=== PATIENT | female | born 1985 | race Caucasian/White ===

== ENCOUNTER → 2018-10-26 | Outpatient (CLI) | payer MEDICAID, SELFPAY | END | disposition home or self-care (01) | PROVIDERS: Family Provider Family Medicine; PCP Family Medicine; Referring Provider Otolaryngology Otolaryngology/Facial Plastic Surgery; Visit Provider Otolaryngology Otolaryngology/Facial Plastic Surgery | DX: J02.9 Acute pharyngitis, unspecified (principal) | CPT/HCPCS: 87070 ==

== ENCOUNTER → 2018-11-26 | Outpatient (CLI) | payer MEDICAID, SELFPAY ==
--- NOTE | 2018-11-26 07:51 | CT_ITS ---
STUDY: CT MAXILLOFACIAL SINUSES REASON FOR EXAM: Female, 33 years old. Sinusitis RADIATION DOSAGE (If Supplied By Facility): CTDIvol = ( 33.45 ) mGy, DLP = ( 839.09 ) mGycm TECHNIQUE: The patient was scanned in a multi detector CT scanner. High resolution axial imaging was performed without the administration of intravenous contrast material. Sagittal and coronal images were reconstructed. Individualized dose optimization techniques were used for this CT. COMPARISON: None. FINDINGS: FRONTAL SINUSES: Normal aeration, without mucosal inflammatory disease. ETHMOIDAL SINUSES: Normal aeration, without mucosal inflammatory disease. MAXILLARY SINUSES: Normal aeration, without mucosal inflammatory disease. SPHENOIDAL SINUSES: Normal aeration, without mucosal inflammatory disease. There is patency of the bilateral maxillary infundibuli with normal uncinate processes, ethmoid bullae, and hiatus semilunaris. Normal bilateral middle turbinates. Normal bilateral inferior turbinates. There is mild right sided nasal septal deviation, but without a nasal septal spur. There is patency of the bilateral nasal airways. The visualized osseous structures are normal. The visualized bilateral orbital contents are normal. CT/Sinus/Facial Bone IMPRESSION: Bilateral nasal septal deviation to the right. There are sinuses. Electronically Signed: Raphael Garcia, at 17:10 EDT Tel , Service support ,
== END | disposition home or self-care (01) ==
LOC: CT 07:49
PROVIDERS: Family Provider Family Medicine; PCP Family Medicine; Referring Provider Otolaryngology Otolaryngology/Facial Plastic Surgery; Visit Provider Otolaryngology Otolaryngology/Facial Plastic Surgery
DX: J32.9 Chronic sinusitis, unspecified (principal)
CPT/HCPCS: 70486

== ENCOUNTER 2020-05-16 12:51 | Emergency (ER) | payer MEDICAID, SELFPAY ==
[2020-05-16 12:52] VITALS: BP 128/79; PULSE 100; RESP 17; TEMP 36.4; O2SAT 99; BMI 25.7
--- NOTE | 2020-05-16 13:42 | ED.DCSUM_ITS ---
- ER Visit Summary Date of Service: 05/16/20 Chief Complaint: General weakness, fatigue, and lightheadedness History of Present Illness: The patient is a 34 F who presents with fatigue, lightheadedness, and fatigue for the past couple months. Patient states she has been having some swelling in her lower legs behind her ankles. Patient states she is being evaluated by her petroleum refining firer for possible congestive heart failure because of that. Patient states she just feels weak and fatigued all over. Patient denies any fevers or chills. Patient admits to a cough with some sputum. Patient admits to nausea but denies any vomiting. Patient is a smoker. Physical Examination: Vital signs are stable. Patient is afebrile. Patient is in no acute distress. Oral mucosa is pink and moist. Neck is supple. Trachea is midline. There is no JVD noted. Heart was regular rate and rhythm. Lungs are clear and equal bilaterally. Abdomen is soft. Bowel sounds are normal. There is no tenderness. There is no rebound or guarding noted. Skin is warm dry. Cranial nerves II through XII are intact. There are no focal motor or sensory deficits noted. Extremities are intact. There is no calf tenderness or edema. Test Results: EKG showed normal sinus rhythm with a rate of 76. There are no acute ST or T wave changes. This was interpreted by the emergency physician. CBC and comprehensive metabolic profile was within normal limits. Urinalysis was normal. Troponin was normal. Portable 1 view chest x-ray was obtained. On my interpretation, lung rose are clear. There is normal cardiac silhouette. Bony thorax is normal. There is no acute process noted. Radiologist also interpreted the x-ray and agrees. Emergency Department Course and Treatment: Patient was given IV fluids here. Patient is feeling better on reevaluation. Patient was instructed to follow-up with her primary care physician in 5 to 7 days. Patient understood and was agreeable with the plan. All questions were answered. Disposition: Discharge home Impression: 1. Viral illness This note was generated with SecureAuth dictation software. It may contain incorrect words, spelling, and punctuation that were not noted in review of the chart prior to signing ED Disposition - Plan for ED Patient: Disposition: Home or Assisted Living Diagnosis: Viral illness Instructions: ED Viral Syndrome Referrals: Jasbir Wilson MD [Primary Care Provider] - 5-7 Days
--- NOTE | 2020-05-16 13:58 | EKG12_ITS ---
Test Reason : WEAKNESS Blood Pressure : / mmHG Vent. Rate : 076 BPM Atrial Rate : 076 BPM P-R Int : 168 ms QRS Dur : 072 ms QT Int : 370 ms P-R-T Axes : 049 054 045 degrees QTc Int : 416 ms Normal sinus rhythm Normal ECG Confirmed by SADAF HERNANDEZ, NINO ([id number]), legal editor JUSTINE PANIAGUA ([id number]) on 05/18/2020 9:42:01 AM Referred By: ENA Confirmed By:NINO TALAVERA MD
--- NOTE | 2020-05-16 14:05 | RAD_ITS ---
STUDY: X-RAY CHEST REASON FOR EXAM: Female, 34 years old. Weakness and swelling of lower extremities. TECHNIQUE: Single frontal view of the chest. COMPARISON: 05/08/2011 FINDINGS: Stable mild hyperexpansion. There is no demonstrated pleural abnormality. Normal size heart. Normal mediastinum and javan. Normal visualized pulmonary arteries. Normal visualized aortic arch and descending thoracic aorta. Normal visualized thoracic spine. Normal visualized ribs, clavicles, and shoulders. There is no demonstrated abnormality of the visualized soft tissue structures of the upper abdomen. RAD/Chest 1 View (Portable) IMPRESSION: Stable hyperexpansion with no acute finding. Electronically Signed: Esvin Anderson MD at 14:36 EST , Service support ,
[2020-05-16 14:09] LABS: Absolute Lymphocyte Count 2.04 X10^3/uL (0.83-4.51); Absolute Neutrophil Count 4.9 X10^3/uL (2.0-7.7); Basophil# 0.05 X10^3/uL; Basophil% 0.6 % (0-1); Eosinophil# 0.24 X10^3/uL; Eosinophils% 3.1 % (0-5); Hematocrit 44.6 % (37-47); Hemoglobin 14.6 g/dL (12.0-15.0); Lymphocyte # 2.04 X10^3/ul (4.0); Lymphocyte % 26.3 % (19-41); Mean Corp Hgb Conc 32.7 g/dL (32-36); Mean Corpuscular Hgb 30.9 pg (27.0-32.0); Mean Corpuscular Volume 94.3 fL (81-99); Mean Platelet Vol. 12.1 fl (6.2-12.0); Monocyte# 0.49 X10^3/uL; Monocyte% 6.3 % (0-10); NRBC Flagged by Analyzer 0 % (0-5); Neutrophil # 4.91 X10^3/uL (2.7-7.7); Neutrophil % 63.4 % (47-70); Platelet Count 193 K/mm3 (150-450); RBC Distribution Width SD 42.4 fl (35.1-43.9); Red Blood Count 4.73 M/mm3 (4.2-5.4); White Blood Count 7.8 K/mm3 (4.4-11.0)
[2020-05-16 14:22] LABS: ALB/GLOB Ratio 1.1 RATIO (0.9-2.4); AST(SGOT) 18 U/L (15-37); Alanine Aminotransfer ALT/SGPT 40 U/L (13-56); Albumin, Serum 3.8 g/dL (3.2-5.0); Alkaline Phosphatase 66 U/L (45-117); Anion Gap 2 (5-15); BUN 11 mg/dL (7-18); BUN/Creat Ratio 14.1 RATIO (10-20); Calcium,Total 8.7 mg/dL (8.5-10.1); Chloride 111 mmol/L (98-107); Creatinine, Serum 0.78 mg/dL (0.55-1.02); EST Glomerular Filtration Rate 89 mL/min (>60); Est Glom Filt Rate - Afr Amer 107 mL/min (>60); Globulin 3.4 g/dL (2.2-4.2); Glucose 100 mg/dL (74-106); Potassium 3.7 mmol/L (3.5-5.1); Protein, Total 7.2 g/dL (6.4-8.2); Sodium Level 140 mmol/L (136-145)
[2020-05-16] MEDS: 0.9% Normal Saline 1,000 ML 1000 ML IV (14:38)
[2020-05-16 15:11] VITALS: PULSE 79; RESP 22; O2SAT 98
[2020-05-16 15:16] LABS: Bacteria 0 SEEN /hpf (None Seen); Mucous, Urine 0 SEEN /hpf (<or=2+); Red Blood Cells-Urine 0 SEEN /hpf (0-5)
[2020-05-16 15:25] LABS: Color, Urine Yellow (Yellow); Glucose, Dipstick Normal (Normal); Ketone-Dipstick Negative (Negative); Leukocyte Esterase-Dipstick Negative /ul (Negative); Nitrite-Dipstick Negative (Negative); Occult Blood-Urine Negative /ul (Negative); Protein-Dipstick Negative (Negative); Specific Gravity, Urine 1.015 (1.002-1.030); Urine Bilirubin Dipstick Negative (Negative); Urine Clarity Sl. Cloudy (Clear); Urine Urobilinogen Normal (Normal); Urine pH 6.5 (5.0 - 8.0)
[2020-05-16 15:32] LABS: Squamous Epithelial Cells - UA 0-5 SEEN /hpf (5-10); White Blood Cells 0-5 SEEN /hpf (0-5)
== END 2020-05-16 16:44 | disposition home or self-care (01) ==
PROVIDERS: Emergency Provider Emergency Medicine; PCP Family Medicine
DX: B34.9 Viral infection, unspecified (principal); F17.200 Nicotine dependence, unspecified, uncomplicated
CPT/HCPCS: 71045; 80053; 81001; 84484; 85025; 93005; 99284; J7030; A4216

== ENCOUNTER 2022-08-17 03:18 | Emergency (ER) | payer MEDICAID, SELFPAY ==
[2022-08-17 03:19] VITALS: BP 113/65; PULSE 89; RESP 16; TEMP 36.8; O2SAT 97; BMI 27.2
--- NOTE | 2022-08-17 03:54 | EKG12_ITS ---
Test Reason : CP Blood Pressure : / mmHG Vent. Rate : 093 BPM Atrial Rate : 093 BPM P-R Int : 178 ms QRS Dur : 074 ms QT Int : 360 ms P-R-T Axes : 069 021 048 degrees QTc Int : 447 ms Normal sinus rhythm Nonspecific ST abnormality Abnormal ECG Confirmed by SADAF HERNANDEZ, NINO ([id number]), editor news JUSTINE PANIAGUA ([id number]) on 08/17/2022 9:07:46 AM Referred By: BB Confirmed By:NINO TALAVERA MD
--- NOTE | 2022-08-17 03:54 | EDS_ITS ---
HPI History of Present Illness Chief Complaint: Chest Pain Informant: patient Narrative Narrative: Patient presents for combination of intermittent chest pains and separately, intermittent palpitations. Patient states the palpitations feel like a fluttering in her left lower chest/ribs, below her breast, that lasts for 3 to 4 seconds at a time and has been going on for a couple of months. She was seen at an outside hospital for it at 1 point but they did not find anything. She states sometimes she will trigger it with a sneeze. They do not occur along with the chest pains. When the palpitations do occur, she has had no lightheadedness, near-syncope or syncope, shortness of breath, nausea, sweating, or any other associated symptoms, but she does physically see things moving in the left lower chest wall where the discomfort is located. The chest discomfort is separate. It is a sharp pain, left chest and sometimes shoots into her left axilla, and also last for seconds or minutes. No specific triggers such as deep inspiration, movement, exertion. Seems random. Having going on for 2 years intermittently, since I had COVID. She has been seen for this several times at outside hospital, she states she had CT angiography to rule out pulmonary embolus and was told everything was normal several times. [facility] Medical History Carcinoma in situ of cervix uteri Depression Endometriosis GERD (gastroesophageal reflux disease) Herpes History of TIA (transient ischemic attack) History of tobacco use HPV (human papilloma virus) infection IBS (irritable bowel syndrome) Migraines Nicotine dependence Patent foramen ovale Home Medications naproxen 500 mg tablet 500 mg PO PRN PRN Pain 08/17/22 [History Last Taken Unknown] pantoprazole 40 mg tablet,delayed release 40 mg PO DAILY #30 tabs 08/17/22 [Rx Last Taken Unknown] Allergy/AdvReac Type Severity Reaction Status Date / Time Bleach (Sodium Hypochlorite) Allergy unknown Verified 08/17/22 03:25 codeine Allergy unknown Verified 08/17/22 03:25 hydrocodone Allergy unknown Verified 08/17/22 03:25 paroxetine [From Paxil] Allergy unknown Verified 08/17/22 03:25 Family History Grandfather Heart disease Diabetes CVA (cerebral vascular accident) Grandmother Heart disease Diabetes Mother SLE (systemic lupus erythematosus) Surgical History History of History of colonoscopy History of tubal ligation Social History Smoking Status: Current every day smoker tobacco type: cigarettes ROS ROS ED Constitutional Constitutional ED: Denies chills or fever(s) Eyes Eyes: Denies change in vision or diplopia ENT ENT ED: Denies rhinorrhea or sore throat Cardiovascular Cardiovascular: Reports as per HPI, chest pain and palpitations Respiratory/Chest Respiratory/Chest: Denies cough or dyspnea Gastrointestinal Gastrointestinal: Denies abdominal pain, diarrhea, nausea or vomiting Genitourinary Genitourinary ED: Denies dysuria or hematuria Musculoskeletal Musculoskeletal: Reports other Details: R great toe pain after injury ; Denies back pain or neck pain Integumentary Denies abscess or rash Neurologic Neurologic: Denies headache(s), paresthesias or weakness Psychiatric Psychiatric: Denies anxiety or suicidal thoughts EXAM Physical Exam Const Vital Signs: 08/17/22 03:19 08/17/22 03:19 08/17/22 04:52 Temperature 98.2 F Temperature Source Temporal Pulse Rate 89 67 Respiratory Rate 16 18 Respiratory Effort Normal Blood Pressure 113/65 101/65 Blood Pressure Mean 81 77 Pulse Ox 97 98 Oxygen Delivery Method Room Air Room Air Positive well nourished and well developed General Appearance ED: well developed and NAD HEENT Reports moist mucous membranes normocephalic and atraumatic Eyes PERRL and EOMs intact bilaterally Neck full ROM and supple Chest Wall inspection of chest normal and palpation of chest normal Resp normal respiratory effort and clear to auscultation bilaterally Cardio regular rate, regular rhythm and no murmurs GI non-tender and non-distended Auscultation: normoactive bowel sounds Palpation: soft Back/Spine no CVA tenderness General Back: other FROM Extremity normal to inspection Extremity Narrative: Tender at subungual hematoma right great toe General Extremety ED: Yes tenderness; Negative for edema or pulses abnormal General Extremity: Negative for edema or pulses abnormal Neuro oriented x3, CN's II-XII intact bilaterally and no sensory deficits noted Sensorium / Orientation: awake and alert Motor Exam: strength 5/5 throughout Skin no rashes or lesions noted and no wounds Heart Score History: Slightly/Non-Suspicious ECG: Normal Age: </= 45 years Risk Factors: 1 or 2 Risk Factors Troponin: </= Normal Limit Score: 1 MDM MDM MDM Narrative Medical decision making narrative: Out side rec reviewed: CT angiography of the chest on 11/27/2020 negative for PE or any other acute abnormality. EKG here normal. She did have some of the fluttering, we did not see any dysrhythmias or ectopy on the monitor, I suspect these are muscle fasciculations especially with the history and the location she is describing. Her PERC score is 0, and in addition to that she had a CTA for the same symptoms that was -1 or 2 years ago, so I do not think she needs any further work-up for PE today. The rest of her blood work is unremarkable there are no electrolyte disturbances to suggest an obvious etiology for muscle fasciculations, and her high-sensitivity troponin is normal at 3. Stable for discharge, will prescribe her PPI to try for the sharp chest pains which may be esophageal in etiology. Lab Data Attestation: I reviewed the patient's lab results. Labs: Laboratory Results - last 24 hr 08/17/22 08/17/22 03:58 03:58 WBC 7.5 RBC 4.48 Hgb 13.6 Hct 41.5 MCV 92.6 MCH 30.4 MCHC 32.8 RDW Std Deviation 41.6 RDW Coeff of Nikko 12.1 Plt Count 180 MPV 11.0 Immature Gran % (Auto) 0.400 Neut % (Auto) 59.7 Lymph % (Auto) 29.9 Nuckolls % (Auto) 7.6 Eos % (Auto) 1.9 Baso % (Auto) 0.5 Absolute Neuts (auto) 4.5 Absolute Lymphs (auto) 2.25 Nucleated RBC % 0 Sodium 140 Potassium 3.6 Chloride 110 H Carbon Dioxide 26.0 Anion Gap 4 L BUN 15 Creatinine 0.72 Estim Creat Clear Calc 90.59 Est GFR (MDRD) Af Amer 116 Est GFR (MDRD) Non-Af 96 BUN/Creatinine Ratio 20.9 H Glucose 98 Calcium 8.5 Troponin I High Sens 3 Rhythm Strip Rhythm Strip: Sinus Rhythm Rate: 85 Ectopy: None EKG Initial EKG: Attestation: I personally reviewed and interpreted this EKG as follows: Interpretation: Sinus Rhythm and No Acute Injury Pattern Comments: nml EKG Prior EKG tracings: available for review Prior: Unchanged Discharge Plan Triage Chief Complaint: Chest Pain ED Provider: Moiz Perez Dx/Rx/DC Orders Clinical Impression: Atypical chest pain, Spasm of skeletal muscle of thorax Instructions: ED Chest Pain, Noncardiac Prescriptions: New pantoprazole 40 mg tablet,delayed release (DR/EC) 40 mg PO DAILY Qty: 30 0RF No Action naproxen 500 mg Tablet 500 mg PO PRN PRN (Reason: Pain) Primary Care Provider: Jasbir Wilson Referrals: Jasbir Wilson MD [Primary Care Provider] - 1-2 Weeks Disposition Disposition: Home, Self Care
[2022-08-17 04:08] LABS: Absolute Lymphocyte Count 2.25 X10^3/uL (0.83-4.51); Absolute Neutrophil Count 4.5 X10^3/uL (2.0-7.7); Basophil# 0.04 X10^3/uL; Basophil% 0.5 % (0-1); Eosinophil# 0.14 X10^3/uL; Eosinophils% 1.9 % (0-5); Hematocrit 41.5 % (37-47); Hemoglobin 13.6 g/dL (12.0-15.0); Lymphocyte # 2.25 X10^3/ul (0.83-4.51); Lymphocyte % 29.9 % (19-41); Mean Corp Hgb Conc 32.8 g/dL (32-36); Mean Corpuscular Hgb 30.4 pg (27.0-32.0); Mean Corpuscular Volume 92.6 fL (81-99); Monocyte# 0.57 X10^3/uL; Monocyte% 7.6 % (0-10); NRBC Flagged by Analyzer 0 % (0-5); Neutrophil # 4.49 X10^3/uL (2.7-7.7); Neutrophil % 59.7 % (47-70); Platelet Count 180 K/mm3 (150-450); RBC Distribution Width CV 12.1 % (11.6-14.6); RBC Distribution Width SD 41.6 fl (35.1-43.9); Red Blood Count 4.48 M/mm3 (4.2-5.4); White Blood Count 7.5 K/mm3 (4.4-11.0)
[2022-08-17 04:29] LABS: Anion Gap 4 (5-15); BUN 15 mg/dL (7-18); BUN/Creat Ratio 20.9 RATIO (10-20); Calcium,Total 8.5 mg/dL (8.5-10.1); Chloride 110 mmol/L (98-107); Creatinine, Serum 0.72 mg/dL (0.55-1.02); EST Glomerular Filtration Rate 96 mL/min (>60); Est Glom Filt Rate - Afr Amer 116 mL/min (>60); Estimated Creatinine Clearance 90.59 ml/min; Glucose 98 mg/dL (74-106); Potassium 3.6 mmol/L (3.5-5.1); Sodium Level 140 mmol/L (136-145); Troponin-I HS 3 pg/mL (3.0-54.0)
[2022-08-17 04:52] VITALS: BP 101/65; PULSE 67; RESP 18; O2SAT 98
[2022-08-17 05:20] VITALS: BP 91/64; PULSE 68; RESP 26; O2SAT 98
== END 2022-08-17 05:25 | disposition home or self-care (01) ==
PROVIDERS: Emergency Provider Emergency Medicine; PCP Family Medicine; Visit Provider Emergency Medicine
DX: R07.89 Other chest pain (principal); R07.81 Pleurodynia; R00.2 Palpitations; M62.838 Other muscle spasm; K21.9 Gastro-esophageal reflux disease without esophagitis; K58.9 Irritable bowel syndrome, unspecified; Q21.12 Patent foramen ovale; F17.210 Nicotine dependence, cigarettes, uncomplicated; Z79.899 Other long term (current) drug therapy; Z86.73 Personal history of transient ischemic attack (TIA), and cerebral infarction without residual deficits; Z86.16 Personal history of COVID-19
CPT/HCPCS: 80048; 84484; 85025; 93005; 99284; A4216

== ENCOUNTER 2023-04-11 18:27 | Emergency (ER) | payer MEDICAID, SELFPAY ==
[2023-04-11 18:27] VITALS: BP 124/87; PULSE 102; RESP 18; TEMP 36.6; O2SAT 99; BMI 24.7
--- NOTE | 2023-04-11 18:46 | CT_ITS ---
INDICATION: right flank pain EXAMINATION: CT ABDOMEN AND PELVIS WITHOUT CONTRAST - CT Abdomen And Pelvis W/O Contrast Injection TECHNIQUE: Helically acquired images were obtained of the abdomen and pelvis without oral or IV contrast. A radiation dose optimization technique was used for this scan. IV Contrast dosage and agent: None. Oral contrast: None. COMPARISON: None. FINDINGS: LOWER CHEST: Lung bases are clear. No cardiomegaly or pericardial effusion. LIVER: Homogeneous. No focal mass. GALLBLADDER AND BILIARY TREE: No calcified gallstones. No gallbladder distension or wall edema. No intra- or extrahepatic biliary ductal dilation. PANCREAS: No focal cystic or solid mass. SPLEEN: Normal size without focal cystic or solid mass. ADRENAL GLANDS: No nodules. KIDNEYS AND URETERS: No nephrolithiasis or hydronephrosis. PERITONEUM: No ascites or free air. BOWEL: No evidence of acute appendicitis. No stomach or bowel distension. No focal inflammatory change. LYMPH NODES: No enlarged mesenteric or retroperitoneal lymph nodes. VESSELS: Aorta is non-dilated. URINARY BLADDER: Nondistended. REPRODUCTIVE ORGANS: No pelvic masses. BTL clips. ABDOMINAL WALL: No discrete abdominal or pelvic wall hernia. BONES: No acute or aggressive abnormality. CT/Abdomen/Pelvis without Cont IMPRESSION: No acute findings in the abdomen or pelvis. Electronically Signed: James Srivastava MD at 19:59 EDT ,
--- NOTE | 2023-04-11 18:47 | EDS_ITS ---
HPI History of Present Illness Chief Complaint: General Illness Informant: patient Onset/Context/Timing Onset: Weeks Narrative Narrative: Patient presents secondary to lower abdominal pain. She been having lower ab dominal pain for the last month and a half or so. She had an MRI on March 27 that revealed a 5.7 cm right-sided ovarian cyst. She states she began having abdominal pain, nausea, headache, body aches. She followed up with Dr. 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 An ultrasound in the office revealed no evidence of a right- sided cyst but a small cyst was noted on the left. Patient is concerned about possible infection or bleeding internally. Her late passed from sepsis so this is a particular concern to her. [facility] Medical History Carcinoma in situ of cervix uteri Depression Endometriosis GERD (gastroesophageal reflux disease) Herpes History of TIA (transient ischemic attack) History of tobacco use HPV (human papilloma virus) infection IBS (irritable bowel syndrome) Migraines Nicotine dependence Patent foramen ovale Home Medications naproxen 500 mg tablet 500 mg PO PRN PRN Pain 08/17/22 [History Last Taken Unknown] pantoprazole 40 mg tablet,delayed release 40 mg PO DAILY #30 tabs 08/17/22 [Rx Last Taken Unknown] Allergy/AdvReac Type Severity Reaction Status Date / Time Bleach (Sodium Hypochlorite) Allergy unknown Verified 04/11/23 18:30 codeine Allergy unknown Verified 04/11/23 18:30 hydrocodone Allergy unknown Verified 04/11/23 18:30 paroxetine [From Paxil] Allergy unknown Verified 04/11/23 18:30 Family History Grandfather Heart disease Diabetes CVA (cerebral vascular accident) Grandmother Heart disease Diabetes Mother SLE (systemic lupus erythematosus) Surgical History History of History of colonoscopy History of tubal ligation Social History Smoking Status: Current every day smoker tobacco type: cigarettes ROS ROS ED Constitutional Constitutional ED: Denies chills or fever(s) ENT ENT ED: Denies rhinorrhea or sore throat Cardiovascular Cardiovascular: Denies chest pain or palpitations Respiratory/Chest Respiratory/Chest: Reports cough; Denies dyspnea Gastrointestinal Gastrointestinal: Reports abdominal pain, nausea and other Details: Decreased p.o. intake ; Denies diarrhea Genitourinary Genitourinary ED: Reports difficulty urinating; Denies dysuria Musculoskeletal Musculoskeletal: Reports back pain and myalgias; Denies extremity pain Integumentary Denies Abrasions or rash Neurologic Neurologic: Reports headache(s); Denies weakness Allergic/Immunologic Allergic/Immunologic ED: Denies lip swelling or urticaria EXAM Physical Exam Const Vital Signs: 04/11/23 18:27 04/11/23 19:09 04/11/23 20:27 Temperature 97.8 F Temperature Source Temporal Pulse Rate 102 H 64 Respiratory Rate 18 12 Respiratory Effort Normal Respiratory Pattern Normal Blood Pressure 124/87 H 120/88 H Blood Pressure Mean 99 98 Pulse Ox 99 99 Oxygen Delivery Method Room Air Room Air Positive well nourished and well developed General Appearance ED: well developed HEENT Reports normocephalic and head/scalp atraumatic Eyes PERRL and EOMs intact bilaterally Neck supple Chest Wall inspection of chest normal and palpation of chest normal Resp normal respiratory effort and clear to auscultation bilaterally Cardio regular rate and regular rhythm GI GI Narrative: Abdomen soft with mild lower abdominal tenderness. No guarding or rebound. Palpation: soft Back/Spine no CVA tenderness Extremity normal to inspection Neuro oriented x3 and no sensory deficits noted Sensorium / Orientation: alert Motor Exam: strength 5/5 throughout Psych Mood & Affect: anxious Skin no rashes or lesions noted MDM MDM MDM Narrative Medical decision making narrative: IV line established. Urinalysis obtained to evaluate for infection/hematuria. Bladder scan performed following urination to ensure she is emptying her bladder. Labwork obtained to evaluate for leukocytosis, anemia, and electrolyte derangement. CT flank obtained to evaluate for ovarian cyst, kidney stone, appendicitis, hematoma. Lab Data Attestation: I reviewed the patient's lab results. Labs: Laboratory Results - last 24 hr 04/11/23 04/11/23 18:54 18:55 WBC 7.9 RBC 4.64 Hgb 13.9 Hct 43.6 MCV 94.0 MCH 30.0 MCHC 31.9 L RDW Std Deviation 42.1 RDW Coeff of Nikko 12.1 Plt Count 228 MPV 11.6 Immature Gran % (Auto) 0.400 Neut % (Auto) 43.9 L Lymph % (Auto) 42.9 H Breathitt % (Auto) 6.8 Eos % (Auto) 5.2 H Baso % (Auto) 0.8 Absolute Neuts (auto) 3.5 Absolute Lymphs (auto) 3.39 Nucleated RBC % 0 Sodium 142 Potassium 3.3 L Chloride 115 H Carbon Dioxide 23.0 Anion Gap 4 L BUN 14 Creatinine 0.82 Estim Creat Clear Calc 79.54 Est GFR (MDRD) Af Amer 99 Est GFR (MDRD) Non-Af 82 BUN/Creatinine Ratio 17.0 Glucose 103 Calcium 8.7 Urine Color Yellow Urine Clarity Clear Urine pH 6.5 Ur Specific Linch 1.015 Urine Protein 15 H Urine Glucose (UA) Normal Urine Ketones Negative Urine Occult Blood Negative Urine Nitrite Negative Urine Bilirubin Negative Urine Urobilinogen 1 H Ur Leukocyte Esterase 25 H Urine RBC 0-5 SEEN Urine WBC 0-5 SEEN Ur Squamous Epith Cells 0 SEEN Calcium Oxalate Crystal 1+ Urine Bacteria RARE Urine Mucus 0 SEEN Radiography Diagnostic Testing: Clinical Impression(s) from Imaging Studies Abdomen/Pelvis CT 04/11/23 18:46 IMPRESSION: No acute findings in the abdomen or pelvis. Electronically Signed: James Srivastava MD at 19:59 EDT , Chest X-Ray 04/11/23 19:15 IMPRESSION: No radiographic evidence of acute cardiopulmonary disease. Electronically Signed: James Srivastava MD at 19:49 EDT , Treatment and Re-Evaluation :: BC was normal white count 7.9 with a hemoglobin of 13.9. Differential is unremarkable. Chemistry studies are normal other than slightly low potassium at 3.3. Urinalysis reveals 1+ calcium oxalate crystals with 0-5 white cells. Rare bacteria noted. No nitrites. Portable chest x-ray per my interpretation reveals no acute findings. Radiology interpretation is reviewed and agrees. CT scan of the abdomen and pelvis reveals no acute findings. Swab for COVID and influenza is negative. On repeat evaluation patient resting somewhat more comfortably. Test results are discussed with her. She is reassured with these findings. She is to continue Tylenol and ibuprofen. I also encouraged her to increase fluids. Return instructions given. Discharge Plan Triage Chief Complaint: General Illness ED Provider: Destini Vega Dx/Rx/DC Orders Clinical Impression: Viral syndrome Instructions: ED Viral Syndrome (Adult) Prescriptions: No Action naproxen 500 mg Tablet 500 mg PO PRN PRN (Reason: Pain) pantoprazole 40 mg tablet,delayed release (DR/EC) 40 mg PO DAILY Qty: 30 0RF Primary Care Provider: Jasbir Wilson Referrals: Jasbir Wilson MD [Primary Care Provider] - 1 Week if not improving Disposition Disposition: Home, Self Care
[2023-04-11 19:03] LABS: Mucous, Urine 0 SEEN /hpf (<or=2+); Squamous Epithelial Cells - UA 0 SEEN /hpf (5-10)
[2023-04-11 19:04] LABS: Absolute Lymphocyte Count 3.39 X10^3/uL (0.83-4.51); Absolute Neutrophil Count 3.5 X10^3/uL (2.0-7.7); Basophil# 0.06 X10^3/uL; Basophil% 0.8 % (0-1); Eosinophil# 0.41 X10^3/uL; Eosinophils% 5.2 % (0-5); Hematocrit 43.6 % (37-47); Hemoglobin 13.9 g/dL (12.0-15.0); Lymphocyte # 3.39 X10^3/ul (0.83-4.51); Lymphocyte % 42.9 % (19-41); Mean Corp Hgb Conc 31.9 g/dL (32-36); Mean Platelet Vol. 11.6 fl (6.2-12.0); Monocyte# 0.54 X10^3/uL; Monocyte% 6.8 % (0-10); NRBC Flagged by Analyzer 0 % (0-5); Neutrophil # 3.47 X10^3/uL (2.7-7.7); Neutrophil % 43.9 % (47-70); Platelet Count 228 K/mm3 (150-450); RBC Distribution Width CV 12.1 % (11.6-14.6); RBC Distribution Width SD 42.1 fl (35.1-43.9); Red Blood Count 4.64 M/mm3 (4.2-5.4); White Blood Count 7.9 K/mm3 (4.4-11.0)
[2023-04-11 19:07] LABS: Color, Urine Yellow (Yellow); Glucose, Dipstick Normal (Normal); Ketone-Dipstick Negative (Negative); Leukocyte Esterase-Dipstick 25 /ul (Negative); Nitrite-Dipstick Negative (Negative); Occult Blood-Urine Negative /ul (Negative); Protein-Dipstick 15 mg/dl (Negative); Specific Gravity, Urine 1.015 (1.002-1.030); Urine Bilirubin Dipstick Negative (Negative); Urine Clarity Clear (Clear); Urine Urobilinogen 1 mg/dl (Normal); Urine pH 6.5 (5.0 - 8.0)
[2023-04-11] MEDS: 0.9% Normal Saline (1000mL) 1,000 ML 1000 ML IV (19:08)
[2023-04-11] MEDS: Ondansetron 4 MG/2 ML Vial IV (19:08)
[2023-04-11] MEDS: Ketorolac 30 MG/ML Syringe IV (19:08)
--- NOTE | 2023-04-11 19:15 | RAD_ITS ---
INDICATION: cough, sob EXAMINATION/TECHNIQUE: X-RAY - portable upright AP chest x-ray COMPARISON: 05/16/2020 FINDINGS: LINES/DEVICES: None. LUNGS: No consolidation, edema or effusion. No pneumothorax. MEDIASTINUM AND CARDIOVASCULAR STRUCTURES: Cardiac silhouette not enlarged. Central airways and mediastinal contour are unremarkable. BONES AND SOFT TISSUES: No acute changes. RAD/Chest 1 View (Portable) IMPRESSION: No radiographic evidence of acute cardiopulmonary disease. Electronically Signed: James Srivastava MD at 19:49 EDT ,
[2023-04-11 19:21] LABS: Anion Gap 4 (5-15); BUN 14 mg/dL (7-18); Calcium,Total 8.7 mg/dL (8.5-10.1); Chloride 115 mmol/L (98-107); Creatinine, Serum 0.82 mg/dL (0.55-1.02); EST Glomerular Filtration Rate 82 mL/min (>60); Est Glom Filt Rate - Afr Amer 99 mL/min (>60); Estimated Creatinine Clearance 79.54 ml/min; Glucose 103 mg/dL (74-106); Potassium 3.3 mmol/L (3.5-5.1); Sodium Level 142 mmol/L (136-145)
[2023-04-11 19:26] LABS: Bacteria RARE /hpf (None Seen); Calcium Oxalate Crystals Ur 1+ /hpf (<or=2+); Red Blood Cells-Urine 0-5 SEEN /hpf (0-5); White Blood Cells 0-5 SEEN /hpf (0-5)
[2023-04-11] MEDS: 0.9% Normal Saline (1000mL) 1,000 ML 150 ML IV (20:20)
[2023-04-11 20:27] VITALS: BP 120/88; PULSE 64; RESP 12; O2SAT 99
[2023-04-11 20:52] VITALS: BP 123/46; PULSE 65; RESP 14; O2SAT 99
== END 2023-04-11 20:54 | disposition home or self-care (01) ==
PROVIDERS: Emergency Provider Emergency Medicine; PCP Family Medicine; Visit Provider Emergency Medicine
DX: B34.9 Viral infection, unspecified (principal); F17.210 Nicotine dependence, cigarettes, uncomplicated; Z86.73 Personal history of transient ischemic attack (TIA), and cerebral infarction without residual deficits
CPT/HCPCS: 71045; 74176; 80048; 81001; 85025; 87428; 96361; 96374; 96375; 99284; J7030; A4216; J2405

== ENCOUNTER → 2024-06-11 | Outpatient (CLI) | payer MEDICAID, SELFPAY ==
--- NOTE | 2024-06-11 18:07 | PCM.TILTTABL ---
Staff Staff: Cate Roberto and Lashanda Garcia Summary Pre Test Resting HR: 92 Pre Test Resting BP: 107/69 Minimum Test HR: 80 Maximum Test HR: 93 Minimum Test BP: 99/69 Maximum Test BP: 110/60 Reason for Test Termination: Reached Maximum Test Time Physician Tilt Table Report Patient's Physicians Primary Care Physician: Jasbir Wilson Indications/Diagnosis: Dizziness. Procedure Comments: Patient was brought to the noninvasive lab in the postabsorptive nonsedated state. Informed consent was obtained. Initial heart rate and blood pressure was noted to be 68 bpm and a blood pressure of 100/56 mmHg. The patient was then placed in the 70 degree head upright tilt position after EKG and blood pressures were obtained. The patient was maintained in this position for 30 minutes. Continuous EKG monitoring was performed and heart rate was monitored. There were no changes noted in the EKG, heart rate, or blood pressure. The patient was then placed back in the recumbent position and recovered. No significant symptomatology was noted other than mild lightheadedness on initial placement in the 70 degree head upright tilt position. This rapidly resolved Summary: Head upright tilt table test.
[2024-06-11 18:10] VITALS: BP 107/69; BP 110/60; BP 99/69
== END | disposition home or self-care (01) ==
PROVIDERS: PCP Family Medicine; Referring Provider Physician Assistant Medical; Visit Provider Physician Assistant Medical
DX: R42 Dizziness and giddiness (principal); R00.2 Palpitations
CPT/HCPCS: 93660; A4216

== ENCOUNTER → 2025-01-01 | Outpatient (CLI) | payer MEDICAID, SELFPAY ==
--- NOTE | 2025-01-01 07:29 | US_ITS ---
EXAM: US Abdomen Limited, Right Upper Quadrant CLINICAL INDICATION: LUQ PAIN TECHNIQUE: Real-time ultrasound of the right upper quadrant with image documentation. COMPARISON: No relevant prior studies available. FINDINGS: LIVER: Liver measures up to 15.1 cm. Fatty infiltration of the liver. No intrahepatic bile duct dilation. GALLBLADDER: Negative Rodriguez's sign was reported by the supervisor cutting department. No gallstones. COMMON BILE DUCT: Unremarkable as visualized. No stones. No dilation. Common bile duct measures 0.33 cm in diameter. PANCREAS: Unremarkable as visualized. RIGHT KIDNEY: Unremarkable. No stones. No hydronephrosis. The right kidney measures 11.1 x 4.8 x 5.4 cm. SPLEEN: Spleen measures of the 10.6 cm. US/Abdomen Limited IMPRESSION: Fatty infiltration of the liver. Reading [facility]
== END | disposition home or self-care (01) ==
PROVIDERS: PCP Family Medicine; Referring Provider Nurse Practitioner Acute Care; Visit Provider Nurse Practitioner Acute Care
DX: R11.0 Nausea (principal); R10.12 Left upper quadrant pain; R14.0 Abdominal distension (gaseous); K59.01 Slow transit constipation
CPT/HCPCS: 76705

== ENCOUNTER → 2025-01-15 | Outpatient (CLI) | payer MEDICAID, SELFPAY ==
--- OUTSIDE RECORDS SUMMARY | 2025-01-15 07:21 | XMS RPT_ITS | CCD ---
Author Organization [facility] Care Team Providers Care Chief Yeoman Name Role Phone Raphael Knapp Unavailable Unavailable PROVIDER, UNKNOWN Unavailable Unavailable PROVIDER, UNKNOWN Unavailable Unavailable FIOR HERNANDEZ, JM MORA Primary Care Physicia n Jm Childress MD Primary Care Provider Rhonda HERNANDEZ, Michele Chris Unavailable Jm Childress MD Primary Care Provider Rhonda HERNANDEZ, Michele Chris Unavailable JM CHILDRESS MD Primary Care Physicia n Jm Childress MD Primary Care Provider Rhonda HERNANDEZ, Michele Chris Unavailable JM CHILDRESS Referring Unavailable JM CHILDRESS Primary Care Unavailable Rhonda HERNANDEZ, Michele Chris Unavailable Rhonda HERNANDEZ, Michele Chris Unavailable Jm Childress MD Primary Care Provider BETO HERNANDEZ, DENISE Mancilla Attending Unavailable FIOR HERNANDEZ, JM MORA Primary [facility] Unava ilable YONATHAN SPECIALTY TRIMMER-GEOGRAPHY HEAD, SORAYA M Admitting Unavaila kike HADLEY MD, DENISE Mancilla Attending Unavailable FIOR HERNANDEZ, JM MORA Primary [facility] Unava breezy HADLEY MD, DENISE Mancilla Attending Unavailable FIOR HERNANEDZ, JM MORA Primary [facility] Unava breezy HADLEY MD, DENISE Mancilla Attending Unavailable FIOR HERNANDEZ, JM MORA [facility] Unava ilvincenzo CHILDRESS MD, JM MORA Primary [facility] Unava ilable DR JEANNINE DELGADO DO J Attending Unavailable DEBORA HERNANDEZ, JOVON Escamilla Attending Unavailable FIOR HERNANDEZ, JM [facility] Unava ilable FLACO VALENCIA, CONNIE Attending Unavailable FIOR HERNANDEZ, [facility] Unava ilable DEBORA HERNANDEZ, JOVON Escamilla Attending Unavailable FIOR HERNANDEZ, JM [facility] Unava ilable DEREK HERNANDEZ, JOEY Mancilla Attending Unavail able FIOR HERNANDEZ, JM [facility] Unava ilable BETO HERNANDEZ, DENISE Mancilla Attending Unavailable FIOR HERNANDEZ, JM [facility] Unava ilable BALTES SPECIALTY TRIMMER-GEOGRAPHY HEAD, [facility] Physician [facility] SPECIALTY TRIMMER.GEOGRAPHY HEAD, Jud Unavailable DOREENMI, BILLY Referring Unavailable JM CHILDRESS Primary Care Unavailable DOREENMI, BILLY Referring Unavailable JM CHILDRESS Primary Care Unavailable JM CHILDRESS Primary Care Unavailable RAZMI, BILLY Attending Unavailable BALTES SPECIALTY TRIMMER-GEOGRAPHY HEAD, [facility] Care Unavailabl e BALTES SPECIALTY TRIMMER-GEOGRAPHY HEAD, RHONDA Attending Unavailethel MANUEL MD, DR ALLAN Attending Unavailab le BALTES SPECIALTY TRIMMER-GEOGRAPHY HEAD, [place] Primary Care Unavailethel MANUEL MD, DR ALLAN Attending Unavailab le BALTES SPECIALTY TRIMMER-GEOGRAPHY HEAD, [facility] Care UnavailKAREN Montero Attending Unavailabl e BALTES SPECIALTY TRIMMER-GEOGRAPHY HEAD, [facility] Care Unavailethel HADLEY MD, DENISE Mancilla Consulting Kalpesh HADLEY MD, DENISE Mancilla Attending Unavailable BALTES SPECIALTY TRIMMER-GEOGRAPHY HEAD, [facility] Care Unavailabl e BALTES SPECIALTY TRIMMER-GEOGRAPHY HEAD, [place] Primary Care Unavailethel HADLEY MD, DENISE Mancilla Consulting Unavailable BETO HERNANDEZ, DENISE Mancilla Attending Unavailable Fior HERNANDEZ, Dr. Martell Primary Care Provider [phone] Fior HERNANDEZ, Dr. Martell Referring Provider Destini Combs Attending Provider JOVON WILDER JR Attending Unavailable JM CHILDRESS Primary Care Unavailable KAREN SAUL Attending Unavailable SELF Referring Unavailable JM CHILDRESS Primary Care Unavailable MICHELE GANDHI Referring Unavailable JM CHILDRESS Primary Care Unavailable KONTAK, JM R Primary Care Unavailable JOVON WILDER JR Referring Unavailable SLEIK, MICHELE CHRIS Referring Unavailable KONTAK, JM R Primary Care Unavailable KONTAK, JM R Attending Unavailable KONTAK, JM R Primary Care Unavailable KONTAK, JM R Primary Care Unavailable BREANNE BOWDEN Attending Unavailable KONTAK, JM R Referring Unavailable KONTAK, JM R Primary Care Unavailable KONTAK, JM R Primary Care Unavailable BOWEN MA Attending Unavailable KONTAK, JM R Primary Care Unavailable SLEIK, KHALED MELOUD Attending Unavailable SLEIK, KHALED MELOUD Referring Unavailable KONTAK, JM R Primary Care Unavailable JUD HOGUE Referring Unavailable JOVON WILDER JR Attending Unavailable Odell DEWITT-CDestini Referring Provider Destini Bain Attending Unavailable Kontak, Jasbir Referring Unavailable Kontak, Jasbir Primary Care Unavailable Kontak, Jasbir Referring Unavailable Kontak, Jasbir Primary Care Unavailable Destini Bain Attending Unavailable KAREN SAUL Attending Unavailable KAREN SAUL Referring Unavailable Kontak, Jasbir Primary Care Unavailable Kontak, Jasbir Primary Care Unavailable Kontak, Jasbir Referring Unavailable Omari Camelia Attending Unavailable Travis, [place] Attending Unavailable Kontak, Jasbir Primary Care Unavailable Destini Bain Referring Unavailable Kontak, Jasbir Primary Care Unavailable Destini Bain Attending Unavailable Kontak, [place] Primary Care Unavailable Albino Contreras Attending Unavailable Destini Bain Referring Unavailable Kontak, Jasbir Primary Care Unavailable Destini Bain Attending Unavailable Kontak, Jasbir Primary Care Unavailable Omari, Camelia Attending Unavailable Omari, Camelia Referring Unavailable ER, KAREN Referring Unavailable Travis, Gerard Attending Unavailable Kontak, Jasbir Primary Care Unavailable KAREN SAUL Consulting Unavailable Allergies Allergy Classification Reported Allergen(s) Allergy Type Date of Onset Reaction(s) Facility Acetaminophen / Codeine (1 source) Acetaminophen / Codeine Drug Allergy 5 GI Upset [facility] Opioid Agonists (1 source) Codeine Drug Allergy 7 GI Upset [facility] Serotonin Reuptake Inhibitors (SSRIs) (1 source) PARoxetine Drug Allergy 6 [facility] Work Phone: (20 sources) Acetaminophen / Codeine; Translations: [ACETAMINOPHEN-CO DEINE] Drug Allergy 5 GI Upset, Migraine (disorder) [facility] Work Phone: (20 sources) Codeine; Translations: [CODEINE] Drug Allergy 7 GI Upset [facility] (20 sources) PARoxetine; Translations: [PAROXETINE HCL] Drug Allergy 6 Rash [facility] Work Phone: (20 sources) bleach [Other] Propensity to adverse reactions 5 [facility] Work Phone: (1 source) OTHER; Translations: [OTHER] Propensity to adverse reactions (disorder) 5 [facility] (5 sources) HYDROcodone Drug Allergy 3 unknown [facility] (20 sources) Hypochlorite; Translations: [BLEACH (SODIUM HYPOCHLORITE)] Drug Allergy 3 Unknown [facility] (20 sources) PARoxetine; Translations: [paroxetine] Drug Allergy 3 Unknown [facility] (9 sources) Bleach Allergy to substance rash [facility] (1 source) Codeine Drug Allergy 5 [facility] (1 source) HYDROcodone Drug Allergy 5 [facility] (1 source) PARoxetine Drug Allergy 5 [facility] (1 source) Bleach (Sodium Hypochlorite) Drug allergy (disorder) 5 [facility] Medications Current Medications Medication Drug Class(es) Dates Sig (Normalized) Sig (Original) acetaminophen 500 mg oral tablet (5 sources) Start: 02-28-2024 acetaminophen 500 mg oral tablet Dose : 1,000 mg = 2 tab(s), Oral, TID, PRN pain or fever, 0 Refill(s) Start Date: 02/28/24 Status: Ordered Repeat number: 1 [id number] 200 actuat albuterol 0.09 mg/actuat metered dose inhaler (20 sources) beta2-Adrenergic Agonist Start: 09-16-2024 take 2 puff(s) by inhalation every six hours as needed albuterol HFA (PROVENTIL HFA, VENTOLIN HFA) 90 mcg/actuation inhaler Indications: Chronic cough Inhale 2 Puffs as instructed every 6 hours as needed. 6.7 Each 2 09/16/2024 Active Start: 02-23-2024 End: 09-15-2024 take 2 puff(s) by mouth every six hours as needed albuterol HFA (PROVENTIL HFA, VENTOLIN HFA) 90 mcg/actuation inhaler Indications: Chronic cough INHALE 2 PUFFS BY MOUTH EVERY 6 HOURS NEEDED DIRECTED 6.7 Each 2 02/23/2024 09/15/2024 Discontinued Start: 02-01-2024 End: 02-23-2024 take 2 puff(s) by inhalation every six hours as needed albuterol HFA (PROVENTIL HFA) 90 mcg/actuation inhaler Indications: Chronic cough Inhale 2 Puffs as instructed every 6 hours as needed. 6.7 g 02/01/2024 02/23/2024 Discontinued Start: 10-04-2023 End: 02-01-2024 take 2 puff(s) by inhalation every six hours as needed albuterol HFA (PROVENTIL HFA) 90 mcg/actuation inhaler Indications: Chronic cough Inhale 2 Puffs as instructed every 6 hours as needed. 1 Each 0 10/04/2023 02/01/2024 Discontinued Comment on above: Inhale 2 Puffs as in structed every 6 hours as needed. Albuterol (Eqv-Proventil HFA) 90 mcg/inh inhalation aerosol (5 sources) Start: take 2 puff(s) by inhalation every six hours Albuterol (Eqv-Proventil HFA) 90 mcg/inh inhalation aerosol 2 puff(s), Inhalation, q6hr, 0 Refill(s) Start Date: 02/28/24 Status: Ordered Repeat number: 1 Start: 02-28-2024 take 2 puff(s) by in halation every six hours Albuterol (Eqv-Proventil HFA) 90 mcg/inh inhalation aerosol 2 puff(s), Inhalation, q6hr, 0 Refill(s) Start Date: 02/28/24 Status: Ordered amylase [id number] unt / lipase [id number] unt / protease [id number] unt delayed release oral capsule (3 sources) Start: 11-27-2024 Dnbasa-Piysazlb-Mjhwfip (Creon) 36,000-114,000- 180,000 unit capsule,delayed release(DR/EC) Active 2 NMA PO .COMPLEX 300 1 November 27, 2024 12:00am 2 caps orally with meals and 1 with snacks; administer with meals and/or snacks aspirin 81 mg oral tablet (20 sources) Platelet Aggregation Inhibitor, Nonsteroidal Anti-inflammatory Drug Start: 11-27-2024 take 1 tablet by mouth once daily Aspirin 81 mg tablet Active 81 mg PO daily November 27, 2024 12:00am Start: 02-28-2024 aspirin 81 mg oral delayed release tablet Dose : 81 mg = 1 tab(s), Oral, qDay, 0 Refill(s) Start Date: 02/28/24 Status: Ordered Repeat number: 1 Start: 08-04-2022 aspirin 81 mg oral delayed release tablet Dose : 81 mg = 1 tab(s), Oral, qDay Start Date: 08/04/22 Status: Ordered End: 06-07-2023 aspirin 81 mg cap Take 1 cap robert by mouth. 0 06/07/2023 Discontinued (Discontinued by Patient) Comment on above: Take 1 capsule by [facility]. 12 hr buPROPion hydrochloride 150 mg extended release oral tablet (20 sources) Aminoketone Start: End: take 1 tablet by mouth twice daily Bupropion Hcl (Wellbutrin Sr) 150 mg tablet sustained-release 12 hr Active 150 mg PO TWICE A DAY December 25, 2024 12:00am Start: 08-14-2024 take 1 tablet by [facility] twice daily buPROPion SR (WELLBUTRIN SR) 150 mg 12 hr tablet Take 1 tablet by mouth two times a day. 60 tablet 2 08/14/2024 Active Start: 08-30-2021 End: 06-08-2022 take 1 tablet by mouth twice daily buPROPion SR (ZYBAN SR; WELLBUTRIN SR) 150 mg 12 hr tablet Indications: Adjustment disorder with depressed mood Take 1 tablet by mouth twice daily. 60 tablet 1 08/30/2021 06/08/2022 Discontinued Comment on above: Take 1 tablet by [facility] twice daily. BuPROPion (Eqv-Wellbutrin SR) 150 mg/12 hours oral tablet, extended release (5 sources) Start: 08-16-2024 take 1 tablet by mouth every hour BuPROPion (Eqv-Wellbutrin SR) 150 mg/12 hours oral tablet, extended release 0 Refill(s) Start Date: 08/16/24 Status: Ordered Repeat number: 1 Start: 08-04-2022 BuPROPion (Eqv -Wellbutrin SR) 150 mg/12 hours oral tablet, extended release Start Date: 08/04/22 Status: Ordered docusate sodium 100 mg oral capsule (2 sources) Start: 06-12-2023 End: 08-11-2023 Colace 100 mg oral capsule Dose : 100 mg = 1 cap(s), Oral, BID, PRN as needed for constipation, # 60 cap(s), 1 Refill(s), [facility]: [id number], 163, cm, 06/12/23 8:32:00 EST, Height, kg, 06/12/23 8:32:00 EST, Dosing Weight Start Date: 06/12/23 Stop Date: 08/11/23 Status: Ordered estradiol 2 mg oral tablet (1 source) Estrogen Start: 07-31-2023 End: 09-29-2023 Estrace 2 mg oral tablet Dose : 2 mg = 1 tab(s), Oral, qDay, # 30 tab(s), 1 Refill(s), [facility]: [facility][id number], 163, cm, 07/31/23 10:23:00 EST, Height, kg, 07/31/23 10:23:00 EST, Dosing Weight Start Date: 07/31/23 Stop Date: 09/29/23 Status: Ordered Hair Skin and Nails oral tablet (2 sources) Start: 05-16-2023 take 2 capsules by mouth once daily Hair Skin and Nails oral tablet 2 cap, Oral, qDay, 0 Refill(s) Start Date: 05/16/23 Status: Ordered ibuprofen 200 mg oral tablet (20 sources) Nonsteroidal Anti-inflammatory Drug Start: 02-28-2024 ibuprofen 200 mg oral tablet Dose : 400 mg = 2 tab(s), Oral, q6hr, PRN pain or fever, 0 Refill(s) Start Date: 02/28/24 Status: Ordered Repeat number: 1 Start: 12-07-2023 End: 12-17-2023 ibuprofen (MOTRIN) 600 mg ta blet TAKE 1 TABLET BY MOUTH EVERY 6 HOURS NEEDED FOR PAIN FOR 10 DAYS WITH FOOD/MILK FOR 10 DAYS 12/07/2023 Active Start: 05-25-2023 End: 06-14-2023 ibuprofen 600 mg oral tablet Dose : 600 mg = 1 tab(s), Oral, q6h, PRN for pain, Take with food or milk., X 10 day(s), # 30 tab(s), 1 Refill(s), 06/14/23 12:34:00 PM EST, [facility]: [id number], 163, cm, 05/25/23 11:53:00 EST, Height, kg, 05/25/23 11:53:00 EST, Dosing Weight Start Date: 05/25/23 Stop Date: 06/14/23 Status: Ordered Start: 06-15-2021 ibuprofen 600 mg oral tablet Dose : 600 mg = 1 tab(s), Oral, TID, PRN as needed for pain, # 40 tab(s), 0 Refill(s) Start Date: 06/15/21 Status: Ordered iv contrast (will be provide d with radiology test) (4 sources) Start: 04-01-2024 End: 04-02-2024 iv contrast (will be provide d with radiology test) MRI CSP Inject, intravenously, once for 1 dose. No IV access, insert saline lock prior to the beginning of sedation, infusion, injection of imaging exam. Discontinue saline lock post exam. If Pt. has a central line or IVAD, may access for administration according to line specific nursing protocol. Once exam is complete flush line and de-access according to line specific nursing protocol in the MR contrast administration guidelines link. 1 Each 04/01/2024 04/02/2024 Active Start: 02-10-2023 End: 02-11-2023 iv contrast (will be provide d with radiology test) MRI Female Pelvis Inject, intravenously, once for 1 dose. No IV access, insert saline lock prior to the beginning of sedation, infusion, injection of imaging exam. Discontinue saline lock post exam. If Pt has a central line or IVAD, may access for administration according to line specific nursing protocol. Once exam is complete flush line and de-access according to line specific nursing protocol in the MR contrast administration guidelines link. 1 Each 0 02/10/2023 02/11/2023 Active Start: 08-18-2022 End: 08-19-2022 inject 1 dose intravenously once iv contrast (will be provided with radiology test) MRI Brain Inject, intravenously, once for 1 dose.No IV access, insert saline lock prior to beginning of sedation, infusion, injection of imaging exam.Discontinue saline lock post exam. If Pt. has a central line or IVAD, may access for administration according to line specific nursing protocol.Once exam is complete flush line and de-access according to line specific nursing protocol in the MR contrast administration guidelines link 1 Each 0 08/18/2022 08/19/2022 Active Comment on above: MRI Brain Inject, in travenously, once for 1 dose.No IV access, insert saline lock prior to beginning of sedation, infusion, injection of imaging exam.Discontinue saline lock post exam. If Pt. has a central line or IVAD, may access for administration according to line specific nursing protocol.Once exam is complete flush line and de-access according to line specific nursing protocol in the MR contrast administration guidelines link MRI Female Pelvis In ject, intravenously, once for 1 dose. No IV access, insert saline lock prior to the beginning of sedation, infusion, injection of imaging exam. Discontinue saline lock post exam. If Pt has a central line or IVAD, may access for administration according to line specific nursing protocol. Once exam is complete flush line and de-access according to line specific nursing protocol in the MR contrast administration guidelines link. magnesium glyconate (3 sources) Start: 11-27-2024 magnesium glyconate Active PO November 27, 2024 12:00am melatonin 3 mg oral tablet (20 sources) Start: 04-01-2024 melatonin 3 mg tablet Indications: Chronic insomnia , Shift work sleep disorder Take 1 tablet at 9-10PM nightly. 30 tablet 2 04/01/2024 Active naproxen 500 mg oral tablet (20 sources) Nonsteroidal Anti-inflammatory Drug Start: 03-01-2023 naproxen 250 mg oral tablet Dose : 250 mg = 1 tab(s), Oral, BID, PRN as needed for pain, 0 Refill(s) Start Date: 03/01/23 Status: Ordered Start: 08-17-2022 End: 07-09-2024 Naproxen 500 mg Tablet Disco ntinued 500 mg PO NEEDED as needed for Pain August 17, 2022 1:00am July 09, 2024 4:25pm NAPROXEN ORAL Ta ke by mouth as needed. Active NAPROXEN ORAL Ta ke by mouth. Active NAPROXEN ORAL Ta ke by mouth. 0 Active Comment on above: Take 500 mg by mouth as needed (for pain). Take 1 tablet by zahra th as needed for pain (for pain). norethindrone acetate 5 mg oral tablet (1 source) Start: 07-31-2023 End: 08-28-2023 Aygestin 5 mg oral tablet Dose : 5 mg = 1 tab(s), Oral, qDay, # 14 tab(s), 1 Refill(s), Pharmacy: [id number], 163, cm, 07/31/23 10:23:00 EST, Height, kg, 07/31/23 10:23:00 EST, Dosing Weight Start Date: 07/31/23 Stop Date: 08/28/23 Status: Ordered omeprazole 20 mg delayed release oral capsule (20 sources) Proton Pump Inhibitor Start: 08-16-2024 omeprazole 20 mg oral delayed release capsule Dose : 20 mg = 1 cap(s), Oral, qDay, # 30 cap(s), 0 Refill(s) Start Date: 08/16/24 Status: Ordered Quantity: 30.0 Unit: cap(s) Repeat number: 1 Start: 03-19-2024 End: 08-14-2024 take 1 capsule by mouth once daily omeprazole (PRILOSEC) 20 mg capsule Indications: Hiatal hernia with GERD , Left upper quadrant abdominal pain Take 1 capsule by mouth once daily. 30 capsule 2 03/19/2024 08/14/2024 Discontinued ondansetron 4 mg oral tablet (20 sources) Serotonin-3 Receptor Antagonist Start: 12-08-2023 End: 12-13-2023 take 1 tablet by mouth every six hours as needed for nausea ondansetron (ZOFRAN) 4 mg tablet TAKE 1 TABLET BY MOUTH EVERY 6 HOURS NEEDED FOR NAUSEA/VOMITING FOR 5 DAYS 12/08/2023 Active Start: 03-02-2023 End: 06-07-2023 take 1 tablet by mouth every eight hours as needed ondansetron (ZOFRAN) 4 mg tablet Take 4 mg by mouth every 8 hours as needed. 0 03/02/2023 06/07/2023 Discontinued (Discontinued by Patient) Start: 02-25-2023 End: 02-26-2023 Zofran 4 mg oral tablet Dose : 4 mg = 1 tab(s), PO, q8h, # 12 tab(s), 0 Refill(s), 02/26/23 7:40:00 PM EDT Start Date: 02/25/23 Stop Date: 02/26/23 Status: Ordered Comment on above: Take 4 mg by mouth e very 8 hours as needed. pantoprazole 40 mg delayed release oral tablet (20 sources) Proton Pump Inhibitor Start: take 1 tablet by mouth once daily Pantoprazole 40 mg tablet,delayed release (DR/EC) Active 40 mg PO daily 90 December 25, 2024 12:00am take once daily on an empty stomach Start: 08-17-2022 End: 07-09-2024 take 1 tablet by mouth once daily Pantoprazole 40 mg tablet,delayed release (DR/EC) Discontinued 40 mg PO DAILY 30 0 August 17, 2022 1:00am July 09, 2024 4:25pm Start: 12-10-2020 End: 12-11-2020 take 1 tablet by mouth once daily Pantoprazole 40 mg tablet,delayed release (DR/EC) Discontinued 40 mg PO DAILY December 10, 2020 12:00am December 11, 2020 10:47am Comment on above: Take 1 tablet by zahra th once daily. On empty stomach at least 30 minutes before eating. Peg 3350-Sod Sulf,Zsql-Fbc-Hpg (Suflave) 178.7-7.3-0.5 gram recon soln (2 sources) Start: Peg 3350-Sod Sulf,Geil-Lnk-Qmr (Suflave) 178.7-7.3-0.5 gram recon soln Active 0 PO .COMPLEX 2 0 December 25, 2024 12:00am as directed for split dose bowel prep potassium chloride 10 meq extended release oral tablet (4 sources) Start: 5 take 2 tablets by mouth twice daily potassium chloride (K-TAB) 10 mEq tablet Take 2 tablets by mouth two times a day. 60 tablet 2 10/14/2024 Active Multivitamins (2 sources) Start: 3 take 1 tablet by mouth once daily Multivitamins Dose = 1 tab(s), Oral, qDay, 0 Refill(s) Start Date: 05/16/23 Status: Ordered rimegepant 75 mg disintegrating oral tablet (20 sources) Start: 5 take 1 tablet by mouth every twenty-four hours Nurtec ODT 75 mg oral tablet, disintegrating Dose : 75 mg = 1 tab(s), Oral, q24h, PRN as needed for migraine headache, not to exceed 75 mg in 24 hours, # 8 tab(s), 0 Refill(s) Start Date: 08/16/24 Status: Ordered Quantity: 8.0 Unit: tab(s) Repeat number: 1 Start: 04-09-2024 End: 09-15-2024 take 1 tablet by mouth once daily as needed rimegepant (NURTEC ODT) 75 mg disintegrating tablet Indications: Intractable 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 Take 1 tablet by mouth once daily as needed. 8 tablet 5 09/17/2024 Active Start: 08-18-2022 End: 06-07-2023 Nurtec ODT 75 mg oral tablet , disintegrating Dose : 75 mg = 1 tab(s), Oral, Once, PRN as needed for migraine headache, # 8 tab(s), 0 Refill(s) Start Date: 04/10/23 Status: Ordered Comment on above: Take 1 tablet by zahra th once daily as needed. sodium bicarbonate 650 mg oral tablet (4 sources) Start: 10-14-2024 take 1 tablet by mouth four times daily sodium bicarbonate 650 mg tablet Take 1 tablet by mouth four times daily. 120 tablet 2 10/14/2024 Active Tenapanor (Ibsrela) 50 mg tablet (2 sources) Start: 12-25-2024 take 1 tablet by mouth once daily at dinner Tenapanor (Ibsrela) 50 mg tablet Active 50 mg PO TWICE A DAY 60 December 25, 2024 12:00am must administer immediately before first meal of day/breakfast and dinner topiramate 100 mg oral tablet (20 sources) Start: 03-01-2023 Topamax Oral, BID, 0 Refill(s) Start Date: 03/01/23 Status: Ordered Start: 08-18-2022 End: 09-15-2024 take 1 tablet by mouth once daily at bedtime topiramate (TOPAMAX) 100 mg tablet Take 1 tablet by mouth daily at bedtime. 30 tablet 3 09/17/2024 Active Start: 08-18-2022 End: 01-26-2023 topiramate (TOPAMAX) 25 mg t ablet 25 mg(1 tab) at bed x 2 wks, then 50 mg at bed(2 tabs) x 2 wks, then 75 mg at bed(3 tabs) x 2 wks(84 TABLETS) 84 tablet 0 08/18/2022 01/26/2023 Discontinued (Other) Comment on above: 25 mg(1 tab) at bed x 2 wks, then 50 mg at bed(2 tabs) x 2 wks, then 75 mg at bed(3 tabs) x 2 wks(84 TABLETS) Take 1 tablet by zahra th daily at bedtime. take 1 tablet by zahra th at bedtime Completed/Discontinued Medications Medication Drug Class(es) Dates Sig (Normalized) Sig (Original) acetaminophen 325 mg / HYDROcodone bitartrate 5 mg oral tablet (3 sources) Opioid Agonist Start: 06-15-2021 End: 06-18-2021 take 1 tablet by mouth every six hours as needed for pain [place] 325- 5 mg oral tablet Dose = 1 tab(s), Oral, q6h, PRN as needed for pain, # 12 tab(s), 0 Refill(s), Chest wall pain, 72.7 Start Date: 06/15/21 Stop Date: 06/18/21 Status: Ordered acetaminophen 325 mg / oxyCODONE hydrochloride 5 mg oral tablet (11 sources) Opioid Agonist Start: 12-07-2023 End: 03-25-2024 oxyCODONE-acetamino phen (PERCOCET) 5-325 mg tablet 12/07/2023 03/25/2024 Discontinued (Course of therapy completed) Start: 12-07-2023 End: 12-14-2023 take 1 tablet by mouth every six hours as needed for pain oxyCODONE-acetaminophen (PERCOCET) 5-325 mg tablet TAKE 1 TABLET BY MOUTH EVERY 6 HOURS NEEDED FOR PAIN FOR 7 DAYS 0 12/07/2023 Active gabapentin 300 mg oral capsule (20 sources) Anti-epileptic Agent Start: 08-16-2024 gabapenti n 300 mg oral capsule 1-3 caps, Oral, qHS, 68.2 Start Date: 08/16/24 Status: Ordered Repeat number: 1 Start: 04-01-2024 End: 11-03-2024 gabapentin (NEURONTIN) 300 m g capsule Take 2 to 3 capsules 30 minutes prior to bedtime. 90 capsule 2 08/06/2024 08/14/2024 Discontinued hydrOXYzine pamoate 25 mg oral capsule (11 sources) Antihistamine Start: 12-04-2023 End: 03-25-2024 take 1 capsule by mouth once daily hydrOXYzine pamoate (VISTARIL) 25 mg capsule Take 25 mg by mouth once daily. 12/04/2023 03/25/2024 Discontinued (Course of therapy completed) Start: 12-02-2023 End: 12-03-2023 Vistaril 25 mg oral capsule Dose : 25 mg = 1 cap(s), Oral, QID, PRN as needed for anxiety, # 40 cap(s), 0 Refill(s), 12/03/23 1:05:00 PM EDT Start Date: 12/02/23 Stop Date: 12/03/23 Status: Ordered lactulose 667 mg/ml oral solution (14 sources) Osmotic Laxative Start: 03-08-2023 End: 06-07-2023 take 30 mL by mouth once daily lactulose 20 gram/30 mL solution Indications: Chronic constipation take 30 milliliters by mouth once daily 900 mL 2 03/08/2023 06/07/2023 Discontinued (Discontinued by Patient) Start: 03-08-2023 End: 03-08-2023 take 30 mL by mouth once daily lactulose 20 gram/30 mL solution Indications: Chronic constipation Take 30 mL by mouth once daily. 900 mL 2 03/08/2023 03/08/2023 Discontinued Comment on above: Take 30 mL by mouth once daily. take 30 milliliters by mouth once daily linaclotide 0.072 mg oral capsule (3 sources) Guanylate Cyclase-C Agonist Start: 06-07-20 End: 10-04-19 24 take 1 capsule by mouth once daily linaCLOtide (LINZESS) 72 mcg capsule Indications: Chronic constipation , Chronic pelvic pain in female Take 1 capsule by mouth once daily. Administer on an empty stomach. Swallow whole; DO NOT crush or chew. 90 capsule 2 06/07/2023 10/04/2023 Discontinued (Discontinued by another Health Care Provider) Comment on above: Take 1 capsule by [facility] once daily. Administer on an empty stomach. Swallow whole; DO NOT crush or chew. lubiprostone 0.024 mg oral capsule (3 sources) Chloride Channel Activator Start: 11-28-19 End: 12-26-19 take 1 capsule by mouth twice daily at mealtime Lubiprostone (Amitiza) 24 mcg capsule Discontinued 24 ug PO TWICE A DAY 180 1 November 27, 2024 12:00am December 25, 2024 10:38am twice daily with food MEDICATION, NON-DATABASE (5 sources) End: 06-08-20 MEDICATION, NON-DATABASE Triplex 0 06/08/2022 Discontinued MEDICATION, NON- DATABASE Triplex 0 Active Comment on above: Triplex midodrine hydrochloride 2.5 mg oral tablet (11 sources) alpha-Adrenergic Agonist Start: 12-19-19 End: 03-25-20 take 1 tablet by mouth twice daily midodrine (PROAMATINE) 2.5 mg tablet Indications: Hypotension, unspecified hypotension type TAKE 1 TABLET BY MOUTH TWO TIMES A DAY. FOR LOW BLOOD PRESSURE. 60 tablet 1 02/12/2024 03/25/2024 Discontinued (Course of therapy completed) nortriptyline 10 mg oral capsule (11 sources) Tricyclic Antidepressant Start: 03-10-20 End: 06-07-20 take 1 capsule by mouth once daily at bedtime nortriptyline (PAMELOR) 10 mg capsule Take 1 capsule by mouth daily at bedtime. 30 capsule 2 03/10/2023 06/07/2023 Discontinued (Discontinued by Patient) Comment on above: Take 1 capsule by mo [facility] daily at bedtime. perflutren lipid microspheres 1.3 mL in NaCl (PF) 0.9% 10 mL injection (DEFINITY) (12 sources) Start: 10-26-19 End: 01-25-20 perflutren lipid microspheres 1.3 mL in NaCl (PF) 0.9% 10 mL injection (DEFINITY) proparacaine hydrochloride 5 mg/ml ophthalmic solution (1 source) Local Anesthetic Start: 03-17-20 End: 03-17-20 proparacaine 0.5 % 1 Drop (ALCAINE) 125 ml sodium chloride 9 mg/ml prefilled syringe (12 sources) Start: 10-26-19 End: 01-25-20 sodium chloride 0.9 % (flush) 10 mL (BD POSIFLUSH) Surgical Lubricant Jelly gel (16 sources) Start: 02-11-20 End: 06-07-20 Surgical Lubricant Jelly gel For MRI Female Pelvis, MRI department to provide. Administer intra-vaginal Surgilube immediately prior the MRI procedure (total amount to patient toleranace). 3 g 0 02/10/2023 06/07/2023 Discontinued (Discontinued by Patient) Start: 02-10-2023 Surgical Lubri cant Jelly gel For MRI Female Pelvis, MRI department to provide. Administer intra-vaginal Surgilube immediately prior the MRI procedure (total amount to patient toleranace). 3 g 0 02/10/2023 Active Comment on above: For MRI Female Pelvi s, MRI department to provide. Administer intra-vaginal Surgilube immediately prior the MRI procedure (total amount to patient toleranace). tropicamide 10 mg/ml ophthalmic solution (1 source) Anticholinergic Start: 03-17-2023 End: 03-17-2023 tropicamide 1 % 1 Drop (MYDRIACYL) Problems Active Problems Problem Classification Problem Date Documented Da te Episodic/Chronic Abdominal hernia (3 sources) Gastroesophageal reflux disease with hiatal hernia; Translations: [Diaphragmatic hernia without obstruction or gangrene] 03-08-2023 Episodic Abdominal pain (20 sources) Chronic pelvic pain of female; Translations: [Pelvic and perineal pain] Onset: 9 Resolved: 2 02-02-2016 Episodic Allergic reactions (2 sources) Allergy status to narcotic agent status; Translations: [Allergy status to narcotic agent status] Onset: 8 Episodic Blindness and vision defects (2 sources) Blurring of visual image; Translations: [Other visual disturbances] 03-10-2023 Episodic Cardiac and circulatory congenital anomalies (20 sources) Patent foramen ovale; Translations: [Atrial septal defect] Onset: 2 Chronic Complications of surgical procedures or medical care (2 sources) Postsurgical menopause; Translations: [Asymptomatic postprocedural ovarian failure] Onset: 5 08-14-2024 Chronic Delirium, dementia, and amnestic and other cognitive disorders (2 sources) Postconcussion syndrome; Translations: [Postconcussional syndrome] Onset: 3 Chronic Endometriosis (20 sources) Endometriosis (clinical); Translations: [Endometriosis, unspecified] Onset: 8 12-17-2007 Chronic Esophageal disorders (20 sources) Gastroesophageal reflux disease; Translations: [Gastro-esophageal reflux disease without esophagitis] Onset: 1 09-11-2020 Chronic Fluid and electrolyte disorders (4 sources) Hypokalemia; Translations: [Hypokalemia] 10-11-2024 Episodic Headache; including migraine (20 sources) Migraine, unspecified, not intractable, without status migrainosus; Translations: [Hemiplegic migraine] Onset: 2 08-16-2011 Chronic Headache; including migraine (2 sources) Headache; Translations: [Intractable headache, unspecified chronicity pattern, unspecified headache type] 04-01-2024 Episodic Headache; including migraine (2 sources) Headache; including migraine; Translations: [Intractable headache, unspecified chronicity pattern, unspecified headache type] Onset: 4 Intracranial injury (4 sources) Concussion with loss of consciousness; Translations: [Concussion with loss of consciousness status unknown, initial encounter] Onset: 3 Episodic Malaise and fatigue (1 source) Other fatigue; Translations: [Fatigue, unspecified type] Onset: 3 Episodic Miscellaneous mental health disorders (5 sources) Psychophysiologic insomnia; Translations: [Chronic insomnia] Onset: 3 Chronic Mood disorders (20 sources) Depressive disorder; Translations: [Other specified depressive episodes] Onset: 0 11-11-2009 Chronic Mood disorders (1 source) Mood disorders; Translations: [Depression, unspecified depression type] Onset: 5 Nausea and vomiting (7 sources) Nausea; Translations: [Nausea] Onset: 5 11-27-2024 Episodic Neoplasms of unspecified nature or uncertain behavior (6 sources) Neoplasm of pituitary gland; Translations: [Neoplasm of unspecified behavior of endocrine glands and other parts of nervous system] Episodic Nonmalignant breast conditions (20 sources) Fibrocystic disease of breast; Translations: [Diffuse cystic mastopathy of unspecified breast] Onset: 8 01-04-2008 Chronic Nonspecific chest pain (20 sources) Chest pain; Translations: [Other chest pain] Onset: 1 Episodic Open wounds of head; neck; and trunk (1 source) Dog bite of face; Translations: [Open bite of other part of head, initial encounter] 10-11-2023 Episodic Other aftercare (11 sources) Surgical follow-up 05-29-2023 Episodic Other circulatory disease (2 sources) Personal history of transient ischemic attack (TIA), and cerebral infarction without residual deficits; Translations: [Prsnl hx of TIA (TIA), and cereb infrc w/o resid deficits] Onset: 8 Episodic Other circulatory disease (5 sources) History of transient ischemic attack; Translations: [Personal history of transient ischemic attack (TIA), and cerebral infarction without residual deficits] 12-10-2020 Episodic Other circulatory disease (2 sources) Low blood pressure; Translations: [Hypotension, unspecified] 12-19-2023 Episodic Other connective tissue disease (2 sources) Fibromyalgia; Translations: [Fibromyalgia] Onset: 8 Episodic Other connective tissue disease (1 source) Swelling of lower limb; Translations: [Other specified soft tissue disorders] Episodic Other connective tissue disease (15 sources) Pain in toe 08-04-2022 Episodic Other connective tissue disease (5 sources) Spasm of skeletal muscle of thorax; Translations: [Other muscle spasm] 08-17-2022 Episodic Other connective tissue disease (2 sources) Weakness of left hand; Translations: [Other symptoms and signs involving the musculoskeletal system] 01-04-2024 Episodic Other connective tissue disease (1 source) Muscle pain; Translations: [Myalgia, other site] Onset: 5 Episodic Other female genital disorders (20 sources) Chacha; Translations: [Mittelschmerz] Onset: 4 04-14-2014 Chronic Other female genital disorders (20 sources) Abnormal uterine bleeding; Translations: [Abnormal uterine and vaginal bleeding, unspecified] Onset: 6 02-02-2016 Chronic Other female genital disorders (1 source) Labial cyst; Translations: [Vulvar cyst] Episodic Other gastrointestinal disorders (20 sources) Irritable bowel syndrome with diarrhea; Translations: [Irritable bowel syndrome with diarrhea] Onset: 6 02-02-2016 Chronic Other gastrointestinal disorders (7 sources) Chronic constipation; Translations: [Other constipation] 03-08-2023 Episodic Other gastrointestinal disorders (6 sources) Abdominal bloating; Translations: [Abdominal distension (gaseous)] 11-27-2024 Episodic Other gastrointestinal disorders (6 sources) Constipation; Translations: [Constipation, unspecified] 11-27-2024 Episodic Other gastrointestinal disorders (1 source) Abdominal distension (gaseous); Translations: [Abdominal distension (gaseous)] Onset: Episodic Other gastrointestinal disorders (1 source) Slow transit constipation; Translations: [Slow transit constipation] Onset: Episodic Other hereditary and degenerative nervous system conditions (3 sources) Intention tremor; Translations: [Other specified forms of tremor] Chronic Other hereditary and degenerative nervous system conditions (2 sources) Myoclonus; Translations: [Myoclonus] Chronic Other infections; including parasitic (2 sources) Post-viral disorder; Translations: [Post-COVID syndrome] 09-03-2024 Chronic Other infections; including parasitic (1 source) Personal history of other infectious and parasitic diseases; Translations: [History of 2019 novel coronavirus disease (COVID-19)] 08-14-2024 Episodic Other injuries and conditions due to external causes (2 sources) Injury of head; Translations: [Unspecified injury of head, initial encounter] 03-10-2023 Episodic Other liver diseases (1 source) Steatosis of liver; Translations: [Fatty (change of) liver, not elsewhere classified] 01-01-2025 Chronic Other liver diseases (1 source) Fatty (change of) liver, not elsewhere classified; Translations: [Fatty (change of) liver, not elsewhere classified] Onset: 07-15-202 5 Chronic Other lower respiratory disease (2 sources) Cough; Translations: [Cough] Onset: 8 Episodic Other lower respiratory disease (1 source) Unspecified abnormalities of breathing; Translations: [Breathing problem] Onset: 3 Episodic Other lower respiratory disease (4 sources) Chronic cough; Translations: [Chronic cough] 10-04-2023 Episodic Other lower respiratory disease (3 sources) Shortness of breath; Translations: [Shortness of breath] Onset: 4 Episodic Other nervous system disorders (2 sources) Circadian rhythm sleep disorder of shift work type; Translations: [Circadian rhythm sleep disorder, shift work type] 04-01-2024 Chronic Other nervous system disorders (2 sources) Demyelinating disease of central nervous system; Translations: [Demyelinating disease of central nervous system, unspecified] 04-01-2024 Chronic Other nervous system disorders (2 sources) Circadian rhythm sleep disorder, shift work type; Translations: [Shift work sleep disorder] Onset: 4 Chronic Other nervous system disorders (1 source) Demyelinating disease of central nervous system, unspecified; Translations: [Demyelinating disease of central nervous system (HCC)] Onset: 4 Chronic Other nervous system disorders (1 source) Impaired cognition; Translations: [Other symptoms and signs involving cognitive functions and awareness] Episodic Other nervous system disorders (1 source) Facial myokymia; Translations: [Facial myokymia] 03-17-2023 Episodic Other nervous system disorders (3 sources) Paresthesia; Translations: [Paresthesia of skin] Onset: 4 Episodic Other nervous system disorders (1 source) Postoperative pain ; Translations: [Other acute postprocedural pain] Onset: 4 Episodic Other screening for suspected conditions (not mental disorders or infectious disease) (3 sources) Cancer cervix screening status; Translations: [Encounter for screening for malignant neoplasm of cervix] Episodic Other skin disorders (1 source) Chronic folliculitis; Translations: [Follicular disorder, unspecified] Episodic Residual codes; unclassified (1 source) Obstructive sleep apnea syndrome; Translations: [Obstructive sleep apnea (adult) (pediatric)] Chronic Residual codes; unclassified (1 source) Hypersomnia; Translations: [Hypersomnia, unspecified] Chronic Residual codes; unclassified (11 sources) History of laparoscopy 05-25-2023 Episodic Residual codes; unclassified (1 source) Pelvic organ finding; Translations: [Acquired absence of both cervix and uterus] Onset: 4 Episodic Residual codes; unclassified (1 source) Transient alteration of awareness; Translations: [Transient alteration of awareness] 04-05-2024 Episodic Residual codes; unclassified (2 sources) Insomnia; Translations: [Insomnia, unspecified] 08-17-2024 Episodic Screening and history of mental health and substance abuse codes (5 sources) Tobacco use and exposure - finding; Translations: [Personal history of nicotine dependence] 12-10-2020 Episodic Substance-related disorders (7 sources) Nicotine dependence, cigarettes, uncomplicated; Translations: [Nicotine dependence] Onset: 8 12-10-2020 Chronic Superficial injury; contusion (1 source) Contusion of toe; Translations: [Contusion of unspecified lesser toe(s) without damage to nail, initial encounter] Onset: 3 Episodic Syncope (1 source) Near syncope; Translations: [Syncope and collapse] Episodic Transient cerebral ischemia (20 sources) Transient cerebral ischemia; Translations: [Transient cerebral ischemic attack, unspecified] Onset: 3 Chronic Unclassified (7 sources) History of vaginal hysterectomy 12-07-2023 Unclassified (4 sources) Patient encounter status 07-22-2024 Unclassified (1 source) Post-COVID syndrome; Translations: [Post-COVID syndrome] Onset: 5 Unclassified (1 source) Low back pain, unspecified; Translations: [Low back pain, unspecified] Onset: 5 Varicose veins of lower extremity (5 sources) Varicose veins of lower limb co-occurrent with edema; Translations: [Varicose veins of left lower extremity with other complications] 12-11-2020 Episodic Viral infection (20 sources) Verruca vulgaris; Translations: [Viral wart, unspecified] Onset: 1 04-27-2011 Episodic Past or Other Problems Problem Classification Problem Date Documented Date Episodic/Chronic Cancer of cervix (20 sources) Carcinoma in situ of uterine cervix; Translations: [Carcinoma in situ of cervix, unspecified] Onset: 04-16-2008 04-16-2008 Episodic Cardiac dysrhythmias (20 sources) Palpitations; Translations: [Palpitations] Onset: 10-26-2021 Episodic Conditions associated with dizziness or vertigo (8 sources) Dizziness and giddiness; Translations: [Dizziness and giddiness] Onset: 06-04-2022 Episodic Female infertility (20 sources) Female infertility; Translations: [Female infertility, unspecified] Onset: 12-17-2007 Resolved: 12-05-2011 12-05-2011 Chronic Genitourinary symptoms and ill-defined conditions (20 sources) Kwasi hematuria; Translations: [Gross hematuria] Onset: 07-30-2009 07-30-2009 Episodic Immunizations and screening for infectious disease (7 sources) Patient encounter status; Translations: [Encounter for screening for human papillomavirus (HPV)] Onset: 07-22-2024 Episodic Inflammatory diseases of female pelvic organs (7 sources) Vulvitis; Translations: [Acute vulvitis] Onset: 03-18-2024 03-18-2024 Episodic Menstrual disorders (20 sources) Dysmenorrhea; Translations: [Menorrhagia] Onset: 12-17-2007 Resolved: 04-14-2014 04-10-2023 Chronic Nonmalignant breast conditions (20 sources) Breast lump; Translations: [Unspecified lump in unspecified breast] Onset: 12-17-2007 Resolved: 12-09-2009 12-09-2009 Episodic Other complications of (20 sources) with isoimmunization; Translations: [Maternal care for other rhesus isoimmunization, unspecified trimester, not applicable or unspecified] Onset: 02-16-2006 Resolved: 12-17-2007 12-17-2007 Episodic Other connective tissue disease (20 sources) Pain in bilateral legs; Translations: [Pain in right leg] Onset: 04-26-2021 04-26-2021 Episodic Other injuries and conditions due to external causes (20 sources) Seroma due to trauma; Translations: [Traumatic secondary and recurrent hemorrhage and seroma, initial encounter] Onset: 04-27-2011 04-27-2011 Episodic Other lower respiratory disease (20 sources) Dyspnea; Translations: [Shortness of breath] Onset: 03-25-2024 02-28-2024 Episodic Other nervous system disorders (2 sources) Paresthesia of skin; Translations: [Tingling] Onset: 04-01-2024 Episodic Ovarian cyst (20 sources) Cyst of ovary; Translations: [Unspecified ovarian cyst, unspecified side] Onset: 12-05-2011 12-05-2011 Episodic Residual codes; unclassified (20 sources) Tobacco user; Translations: [Tobacco use] Onset: 01-13-2015 01-13-2015 Episodic Residual codes; unclassified (1 source) Insomnia, unspecified; Translations: [Insomnia, unspecified type] Onset: 08-06-2024 Episodic Spondylosis; intervertebral disc disorders; other back problems (16 sources) Neck pain; Translations: [Cervicalgia] Onset: 05-01-2024 04-01-2024 Episodic Results Test Name Value Interpretation Reference Range Facility Abdomen Limitedon 01-01-2025 Abdomen Limited [facility] Imaging Services [address] [place], [place] [id number] Abdomen Limited MR#: [id number] Acct: [id number] Name: DEANDRA MCCRAY Rep #: [id number] : 1985 F 39 From: Kaci Moran MD PCP: Dr. Jasbir Childress MD Status: [facility] CLI Study: Abdomen Limited Date of Exam: 01/01/25 Exam# [id number] Ordering Dr: Destini Bain EXAM: US Abdomen Limited, Right Upper Quadrant CLINICAL INDICATION: LUQ PAIN TECHNIQUE: Real-time ultrasound of the right upper quadrant with image documentation. COMPARISON: No relevant prior studies available. FINDINGS: LIVER: Liver measures up to 15.1 cm. Fatty infiltration of the liver. No intrahepatic bile duct dilation. GALLBLADDER: Negative Rodriguez's sign was reported by the pharmacogeneticist. No gallstones. COMMON BILE DUCT: Unremarkable as visualized. No stones. No dilation. Common bile duct measures 0.33 cm in diameter. PANCREAS: Unremarkable as visualized. RIGHT KIDNEY: Unremarkable. No stones. No hydronephrosis. The right kidney measures 11.1 x 4.8 x 5.4 cm. SPLEEN: Spleen measures of the 10.6 cm. US/Abdomen Limited IMPRESSION: Fatty infiltration of the liver. Reading Location: [facility] CC: BILLING MANAGER-C Destini Bain; Dr. Jasbir Childress MD Hydro Plant Site Manager: [facility]WADS) DEANDRA MCCRAY ([id number]) 1985 F Date Time Provider Department 01/01/25 JM CHILDRESS FPWADS During your visit today, we recorded the following information about you: Val Mejias LPN 01/01/2025 2:15 PM Signed Received abdomen us from [facility]. Placed in provider's inbox for review. Route to MA scanning Allergies As of Date: 01/01/2025 Noted Allergy Reaction BLEACH (SODIUM HYPOCHLORITE) 07/09/2024 16 - Unknown CODEINE 08/05/2016 8 - GI Upset PAROXETINE 07/09/2024 16 - Unknown PAXIL (PAROXETINE HCL) 04/24/2006 2 - Rash TYLENOL-CODEINE #3 (ACETAMINOPHEN*05/11/20 05 8 - GI Upset Date Reviewed: 09/04/2024 Reviewed by: Breanne Bowden PA-C - Fully Assessed Reason for Visit: Received Outside Medical Records [[id number]] Cmt: [facility] imaging Prescriptions as of 01/01/2025 - buPROPion SR (WELLBUTRIN SR) 150 mg 12 hr tablet Take 1 tablet by mouth two times a day. - sodium bicarbonate 650 mg tablet Take 1 tablet by mouth four times daily. - potassium chloride (K-TAB) 10 mEq tablet Take 2 tablets by mouth two times a day. - topiramate (TOPAMAX) 100 mg tablet Take 1 tablet by mouth daily at bedtime. - rimegepant (NURTEC ODT) 75 mg disintegrating tablet Take 1 tablet by mouth once daily as needed. - albuterol HFA (PROVENTIL HFA, VENTOLIN HFA) 90 mcg/actuation inhaler Inhale 2 Puffs as instructed every 6 hours as needed. - melatonin 3 mg tablet Take 1 tablet at 9-10PM nightly. - NAPROXEN ORAL Take by mouth as needed. - ibuprofen (MOTRIN) 600 mg tablet TAKE 1 TABLET BY MOUTH EVERY 6 HOURS NEEDED FOR PAIN FOR 10 DAYS WITH FOOD/MILK FOR 10 DAYS - ondansetron (ZOFRAN) 4 mg tablet TAKE 1 TABLET BY MOUTH EVERY 6 HOURS NEEDED FOR NAUSEA/VOMITING FOR 5 DAYS Problem List As Of Date 01/01/2025 Noted Resolved RH ISOIMMUNIZAT-ANTEPART [O36.0990] 02/16/2006 12/17/2007 Lump or Mass in Breast [N63.0] 12/17/2007 12/09/2009 Mastodynia [N64.4] 12/17/2007 12/09/2009 ENDOMETRIOSIS NOS [N80.9] 12/17/2007 Dysmenorrhea [N94.6] 12/17/2007 04/14/2014 Female infertility of unspecified origin [N97.9]12/17/2007 12/05/2011 DIFFUS CYSTIC MASTOPATHY [N60.19] 01/04/2008 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0] 04/14/2014 Complex ovarian cyst [N83.299] 04/14/2014 Migraine with aura [G43.109] 07/17/2014 Tobacco abuse disorder [Z72.0] 01/13/2015 Chronic pelvic pain in female [R10.2, G89.29] 02/02/2016 Abnormal uterine bleeding [N93.9] 02/02/2016 Irritable bowel syndrome with diarrhea [K58.0] 02/02/2016 Gastroesophageal reflux disease [K21.9] 09/11/2020 Leg pain, bilateral [M79.604, M79.605] 04/26/2021 Palpitations [R00.2] 10/26/2021 Shortness of breath [R06.02] 03/25/2024 Precordial pain [R07.2] 03/25/2024 Encounter Status:Closed by VAL MEJIAS on 01/01/25 [facility] Rashid 12-25-2024 CNPN Telephone (AGCARDPOB ) DEANDRA MCCRAY ([id number]) 1985 F Date Time Provider Department 12/25/24 MICHELE GANDHI AGCARDPOB During your visit today, we recorded the following information about you: Destini Gerard LPN 12/25/2024 11:43 AM Signed Received cardiac clearance from [facility] for colonoscopy/EGD with MAC sedation. Scheduled TBD. Form placed in Dr. Gandhi's door box for review. [facility] Benedict Jennifer, LPN 12/25/2024 12:12 PM Signed Michele Gandhi MD You4 minutes ago (12:06 PM) Done Maryanne Oliveros 12/30/2024 4:16 PM Signed Cardiac Clearance form completed, faxed and confirmation scanned in. 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 - sodium bicarbonate 650 mg tablet Take 1 tablet by mouth four times daily. - potassium chloride (K-TAB) 10 mEq tablet Take 2 tablets by mouth two times a day. - topiramate (TOPAMAX) 100 mg tablet Take 1 tablet by mouth daily at bedtime. - rimegepant (NURTEC ODT) 75 mg disintegrating tablet Take 1 tablet by mouth once daily as needed. - albuterol HFA (PROVENTIL HFA, VENTOLIN HFA) 90 mcg/actuation inhaler Inhale 2 Puffs as instructed every 6 hours as needed. - melatonin 3 mg tablet Take 1 tablet at 9-10PM nightly. - NAPROXEN ORAL Take by mouth as needed. - ibuprofen (MOTRIN) 600 mg tablet TAKE 1 TABLET BY MOUTH EVERY 6 HOURS NEEDED FOR PAIN FOR 10 DAYS WITH FOOD/MILK FOR 10 DAYS - ondansetron (ZOFRAN) 4 mg tablet TAKE 1 TABLET BY MOUTH EVERY 6 HOURS NEEDED FOR NAUSEA/VOMITING FOR 5 DAYS Problem List As Of Date 12/25/2024 Noted Resolved RH ISOIMMUNIZAT-ANTEPART [O36.0990] 02/16/2006 12/17/2007 Lump or Mass in Breast [N63.0] 12/17/2007 12/09/2009 Mastodynia [N64.4] 12/17/2007 12/09/2009 ENDOMETRIOSIS NOS [N80.9] 12/17/2007 Dysmenorrhea [N94.6] 12/17/2007 04/14/2014 Female infertility of unspecified origin [N97.9]12/17/2007 12/05/2011 DIFFUS CYSTIC MASTOPATHY [N60.19] 01/04/2008 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0] 04/14/2014 Complex ovarian cyst [N83.299] 04/14/2014 Migraine with aura [G43.109] 07/17/2014 Tobacco abuse disorder [Z72.0] 01/13/2015 Chronic pelvic pain in female [R10.2, G89.29] 02/02/2016 Abnormal uterine bleeding [N93.9] 02/02/2016 Irritable bowel syndrome with diarrhea [K58.0] 02/02/2016 Gastroesophageal reflux disease [K21.9] 09/11/2020 Leg pain, bilateral [M79.604, M79.605] 04/26/2021 Palpitations [R00.2] 10/26/2021 Shortness of breath [R06.02] 03/25/2024 Precordial pain [R07.2] 03/25/2024 Encounter Status:Closed by DESTINI GERARD on 12/25/24 Normal [facility] Gastroenterology Visit Repor ton 12-25-2024 Gastroenterology Visit Report [facility] Gastroenterology [address] [place] [address] OFFICE VISIT Date of Service: 12/25/24 MR#: [id number] Acct: [id number] Name: DEANDRA MCCRAY Rep #: [id number] : 1985 Provider: GARRICK rivas Age/Sex: 39/F Location: [facility] Status: Signed Intake Vital Signs 11/27/24 14:50 12/25/24 10:22 Height 5 ft 4 in 5 ft 4 in Weight: 160 lb 161 lb BMI 27.4 27.6 BP 122/64 H 101/66 Respiration 16 16 Pulse 78 70 Temp 98.8 F Temp Source Temporal Pulse Oximetry (%) 98 98 Oxygen Delivery Method room air room air Intake Visit Reasons: 1 M FU Chief Complaint: constipation Publishing Specialist Required: No Accompanied by: Self Is patient in pain?: No Allergies Bleach (Sodium Hypochlorite) Allergy (Verified 11/27/24 14:53) unknown codeine Allergy (Verified 11/27/24 14:53) unknown hydrocodone Allergy (Verified 11/27/24 14:53) unknown paroxetine (From Paxil) Allergy (Verified 11/27/24 14:53) unknown Medications ???Medication ???Instructions ???Recorded ???Confirmed ???Type rimegepant 75 mg disintegrating 75 mg PO QDAY PRN 07/09/24 5 History tablet (Nurtec ODT) topiramate 100 mg tablet 100 mg PO QDAY 07/09/24 12/25/24 H istory aspirin 81 mg tablet 81 mg PO QDAY 11/27/24 12/25/24 Hi story xxpglp-cirhmnwm-kvappia 2 cap PO .COMPLEX #300 caps 12/25/24 Rx 36,000-114,000-180,000 unit capsule,delay rel (Creon) magnesium glyconate PO 11/27/24 12/25/24 History pantoprazole 40 mg tablet,delayed 40 mg PO QDAY #90 tabs 12/25/24 0 12/25/24 Rx release peg 3350-sod sulf,qtaku-vkp-vne See Rx Instructions PO .COMPLEX #2 12/25/24 12/25/24 Rx 178.7-7.3-0.5-1.12-0.9 gram oral mL soln (Suflave) tenapanor 50 mg tablet (Ibsrela) 50 mg PO BID #60 tabs 12/25/2408/20 Rx PFSH Medical History Hypotension HPV (human papilloma virus) infection Nicotine dependence History of TIA (transient ischemic attack) Depression Endometriosis Herpes Carcinoma in situ of cervix uteri IBS (irritable bowel syndrome) GERD (gastroesophageal reflux disease) Patent foramen ovale Migraines History of tobacco use Surgical History History of colonoscopy History of History of tubal ligation Family History Grandfather Heart disease Diabetes CVA (cerebral vascular accident) Grandmother Heart disease Diabetes Mother SLE (systemic lupus erythematosus) Social History Smoking Status: Former smoker HPI HPI Chief Complaint: constipation Details: DEANDRA MCCRAY, is a 39 F who presents to the office today for OV 11/27/2024 39y/o female presents for initial consultation with complaints of chronic constipation, fatty/oily/greasy stools, abdominal bloating, nausea, and LUQ pain. Symptoms have been ongoing for many years and she reports bidirectional endoscopies performed in 2019 we unremarkable. She reports frequently skipping meals to prevent further weight gain. We have discussed the importance of a balanced diet and starving oneself or skipping meals is not an effective or sustainable weight loss strategy. She reports going up to three weeks without a bowel movement, and once having a stool they are usually hard, or greasy and difficult to clean up. I have started her on Creon and Amitiza. She will contact office in two weeks with symptom update and follow-up in one month. Note: [employer] speech recognition change management director software was used to create portions of this document. Sound-alike and misspelled words, as well as other change management director errors may be contained in the documentation. Patient Instructions: Increase water High fiber diet Start Amitiza 24mcg BID Start Creon 36k (samples provided) take 2 with first bite of each meal and 1 with snacks Calorie goals of 9737-9096/day minimum Limit processed foods Protein goal of 65-100g/day LUQ abdominal pain - started on Amitiza and Creon , this helped for 1 week - the frequency of stools improved the first week - she reports she is going on 2 weeks without a BM - passing flatus - c/o nausea - Benefiber prebiotic fiber supplement - currently taking Magnesium Glycinate 400mg at HS - Miralax caused abdominal pain - failed Linzess 290mcg - caused bad cramping and diarrhea, could not leave the house, blood in stool - failed Trulance - LUQ pain, sharp, no change with a BM, pain is constant - this past weekend she felt like she could not take a deep breath - HB on occasion - pain can change with PO intake, sometimes better and sometimes worse - caffeine made symptoms worse - pizza causes bad pain - denies any melena (more content not included)... Normal [facility] Gastroenterology Visit Repor ton 11-27-2024 Gastroenterology Visit Report [facility] Gastroenterology [address] [place] [address] OFFICE VISIT Date of Service: 11/27/24 MR#: [id number] Acct: [id number] Name: DEANDRA MCCRAY Rep #: [id number] : 1985 Provider: GARRICK rivas Age/Sex: 39/F Location: [facility] Status: Signed Intake Vital Signs 07/09/24 15:06 11/27/24 14:50 Height 5 ft 4 in 5 ft 4 in Weight: 151 lb 4 oz 160 lb BMI 25.9 27.4 BP 122/64 H Respiration 16 Pulse 78 Pulse Oximetry (%) 98 Oxygen Delivery Method room air Intake Visit Reasons: Abdominal pain Chief Complaint: constipation Publishing Specialist Required: No Accompanied by: Daughter Is patient in pain?: No Allergies Bleach (Sodium Hypochlorite) Allergy (Verified 11/27/24 14:53) unknown codeine Allergy (Verified 11/27/24 14:53) unknown hydrocodone Allergy (Verified 11/27/24 14:53) unknown paroxetine (From Paxil) Allergy (Verified 11/27/24 14:53) unknown Medications ???Medication ???Instructions ???Recorded ???Confirmed ???Type rimegepant 75 mg disintegrating 75 mg PO QDAY PRN 07/09/24 5 History tablet (Nurtec ODT) topiramate 100 mg tablet 100 mg PO QDAY 07/09/24 11/27/24 H istory aspirin 81 mg tablet 81 mg PO QDAY 11/27/24 11/27/24 Hi story nfaxgk-esxmukyk-pxvvdvl 2 cap PO .COMPLEX #300 caps 11/27/24 Rx 36,000-114,000-180,000 unit capsule,delay rel (Creon) lubiprostone 24 mcg capsule 24 mcg PO BID #180 caps 11/27/24 0 11/27/24 Rx (Amitiza) magnesium glyconate PO 11/27/24 History Nurse's Note: Abdominal pain is LLQ and upper abdomen all across. She is bloated and constipated. She could go 3 weeks without a bowel movement and then it will be a small one. Chest pain, sweats, nausea and lethary. PFSH Medical History Hypotension HPV (human papilloma virus) infection Nicotine dependence History of TIA (transient ischemic attack) Depression Endometriosis Herpes Carcinoma in situ of cervix uteri IBS (irritable bowel syndrome) GERD (gastroesophageal reflux disease) Patent foramen ovale Migraines History of tobacco use Surgical History History of colonoscopy History of History of tubal ligation Family History Grandfather Heart disease Diabetes CVA (cerebral vascular accident) Grandmother Heart disease Diabetes Mother SLE (systemic lupus erythematosus) Social History Smoking Status: Former smoker HPI HPI Chief Complaint: constipation Details: DEANDRA MCCRAY, is a 39 F who presents to the office today for - constipation, 3 weeks without a BM and then its a turd - reports constipation has been a life long issue, but getting worse x4 years - reports experiencing episodes of diarrhea - also experiencing bloating - she does experience BRBPR - reports having tar or coffee grounds for stools and a lot of LUQ pain - Nausea - LUQ pain, crampy, sharp and no change with PO intake - also experiences LLQ pain, causes her to double over - She denies any h/o diabetes, pancreatitis - greasy stools, floating and difficult to clean up - stools can be so thick - god awful smell - [facility] - failed Linzess - failed Trulance - she has never been on Amitiza, Ibsrela or Movantik - denies any dietary or medication changes - denies any marijuana use - reports she wanted to go on weight loss meds, but her labs came back bad and was started on K+bicarb and Na, no longer taking, was seen in ED for CP at [facility] 2-3 weeks ago, she reports labs were all normal and cardiac w/u was negative - c/o heartburn and spitting up blood 11/10/2024 HGB 14 CBC 10/10/24 WNL CMP 10/10/24 K+ 3.4 Colon EGD 04/22/2020 (Dr. Tomlinson) medium HH, mild gastritis - EGD was performed for tarry stool - reports her current symptoms are the same symptoms she was having in 2019 - states Naproxen and IBU does not help - Quit smoking January 2024 - Caffeine denies - C/O feeling air hungry in the evening in warmer weather, previously seen by pulmonology and neurology B: egg and cheese croissant or nothing L: skips or chips or burger D: skips - skipping meals because she is gaining weight - reports drinking a lot of water every day, drinking electrolyte pack every morning ROS Const Constitutional: Positive for fatigue and weight change (gain); No fever(s) ENT ENT: No difficulty swallowing Gastro GI: Positive for abdominal pain, bloating, change in bowel habits, constipation, heartburn, Blood in stool and nausea/dyspepsia; No belching, change in stool demetris (more content not included)... Normal [facility] 11-11-2024 [facility] Telephone (KATHERINESTF) DEANDRA MCCRAY ([id number]) 1985 F Date Time Provider Department 11/11/24 GIOVANA KRAMER During your visit today, we recorded the following information about you: Robert Argueta 11/11/2024 10:18 AM Signed ----- Message from Giovana Kramer PA-C sent at 11/11/2024 8:51 AM EDT ----- She is Karen Queener patient and has eventually seen Dr Meño Escobedo (neurology) Am not the right provider for her, she should see Dr Wilder. Please re-schedule CYNTHIA Curtis Corey 11/11/2024 10:20 AM Signed Left voicemail to reschedule with Dr. Wilder Allergies As of Date: 11/11/2024 Noted Allergy Reaction BLEACH (SODIUM HYPOCHLORITE) 07/09/2024 16 - Unknown CODEINE 08/05/2016 8 - GI Upset PAROXETINE 07/09/2024 16 - Unknown PAXIL (PAROXETINE HCL) 04/24/2006 2 - Rash TYLENOL-CODEINE #3 (ACETAMINOPHEN*05/11/20 05 8 - GI Upset Date Reviewed: 09/04/2024 Reviewed by: Breanne Bowden PA-C - Fully Assessed Reason for Visit: Appointment [[id number]] Cmt: Inappropriate provider Prescriptions as of 11/11/2024 - sodium bicarbonate 650 mg tablet Take 1 tablet by mouth four times daily. - potassium chloride (K-TAB) 10 mEq tablet Take 2 tablets by mouth two times a day. - topiramate (TOPAMAX) 100 mg tablet Take 1 tablet by mouth daily at bedtime. - rimegepant (NURTEC ODT) 75 mg disintegrating tablet Take 1 tablet by mouth once daily as needed. - albuterol HFA (PROVENTIL HFA, VENTOLIN HFA) 90 mcg/actuation inhaler Inhale 2 Puffs as instructed every 6 hours as needed. - buPROPion SR (WELLBUTRIN SR) 150 mg 12 hr tablet Take 1 tablet by mouth two times a day. - melatonin 3 mg tablet Take 1 tablet at 9-10PM nightly. - NAPROXEN ORAL Take by mouth as needed. - ibuprofen (MOTRIN) 600 mg tablet TAKE 1 TABLET BY MOUTH EVERY 6 HOURS NEEDED FOR PAIN FOR 10 DAYS WITH FOOD/MILK FOR 10 DAYS - ondansetron (ZOFRAN) 4 mg tablet TAKE 1 TABLET BY MOUTH EVERY 6 HOURS NEEDED FOR NAUSEA/VOMITING FOR 5 DAYS Problem List As Of Date 11/11/2024 Noted Resolved RH ISOIMMUNIZAT-ANTEPART [O36.0990] 02/16/2006 12/17/2007 Lump or Mass in Breast [N63.0] 12/17/2007 12/09/2009 Mastodynia [N64.4] 12/17/2007 12/09/2009 ENDOMETRIOSIS NOS [N80.9] 12/17/2007 Dysmenorrhea [N94.6] 12/17/2007 04/14/2014 Female infertility of unspecified origin [N97.9]12/17/2007 12/05/2011 DIFFUS CYSTIC MASTOPATHY [N60.19] 01/04/2008 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0] 04/14/2014 Complex ovarian cyst [N83.299] 04/14/2014 Migraine with aura [G43.109] 07/17/2014 Tobacco abuse disorder [Z72.0] 01/13/2015 Chronic pelvic pain in female [R10.2, G89.29] 02/02/2016 Abnormal uterine bleeding [N93.9] 02/02/2016 Irritable bowel syndrome with diarrhea [K58.0] 02/02/2016 Gastroesophageal reflux disease [K21.9] 09/11/2020 Leg pain, bilateral [M79.604, M79.605] 04/26/2021 Palpitations [R00.2] 10/26/2021 Shortness of breath [R06.02] 03/25/2024 Precordial pain [R07.2] 03/25/2024 Encounter Status:Closed by CARLOSORROBERT on 11/11/24 Normal [facility] .Auto Diffon 11-10-2024 Basophil, Absolute 0.0 10 3/mcL Normal 0.0-0.3 [facility] Comment on above: Performed By: #### A DIFF, GFR, CBC, ANEU, MDW, CMP, PBNP #### [address] [address] Basophils/100 WBC (Bld) 0.9 % Normal 0.0-2.5 [facility] Comment on above: Performed By: #### A DIFF, GFR, CBC, ANEU, MDW, CMP, PBNP #### [address] [address] Eosinophil, Absolute 0.2 10 3/mcL Normal 0.0-0.7 [facility] Comment on above: Performed By: #### A DIFF, GFR, CBC, ANEU, MDW, CMP, PBNP #### [address] [address] Eosinophils/100 WBC (Bld) 3.8 % Normal 0.0-6.0 [facility] Comment on above: Performed By: #### A DIFF, GFR, CBC, ANEU, MDW, CMP, PBNP #### [address] [address] Lymphocyte, Absolute 1.7 10 3/mcL Normal 0.9-4.3 [facility] Comment on above: Performed By: #### A DIFF, GFR, CBC, ANEU, MDW, CMP, PBNP #### [address] [address] Lymphocytes/100 WBC (Bld) 32.1 % Normal 20.0-40.0 [facility] Comment on above: Performed By: #### A DIFF, GFR, CBC, ANEU, MDW, CMP, PBNP #### [address] [address] Monocyte, Absolute 0.3 10 3/mcL Normal 0.1-1.4 [facility] Comment on above: Performed By: #### A DIFF, GFR, CBC, ANEU, MDW, CMP, PBNP #### [address] [address] Monocytes/100 WBC (Bld) 6.2 % Normal 2.0-13.0 [facility] Comment on above: Performed By: #### A DIFF, GFR, CBC, ANEU, MDW, CMP, PBNP #### [address] [address] Neutrophils/100 WBC (Bld) 57.0 % Normal 50.0-75.0 [facility] Comment on above: Performed By: #### A DIFF, GFR, CBC, ANEU, MDW, CMP, PBNP #### [address] [address] .GFRon 11-10-2024 Estimated Glomerular Filtration Rate 99 ml/min/1.73sqm Normal [facility] Comment on above: Result Comment: Stages of Chronic Kidney Disease (CKD) Stage Description eGFR(ml/min/1.73 sq.m.) CKD 1 Normal kidney function or >=90 normal kindney function with possible kidney damage (ex. Proteinuria) CKD 2 Kidney damage with mild loss 60-89 of kidney function CKD 3a Mild to moderate loss of kidney 45-59 function CKD 3b Moderate to severe loss of 30-44 of kindey function CKD 4 Severe loss of kidney function 15-29 CKD 5 Kidney failure <15 Note: (go live 2024) the eGFR calculation was updated to the 2020 CKD-EPI creatinine equation without a race factor to calculate the eGFR results. Performed By: #### A DIFF, GFR, CBC, ANEU, MDW, CMP, PBNP #### [address] [address] .MDWon 11-10-2024 Monocyte Distribution Width 16.34 Normal 0.00-20.00 [facility] Comment on above: Result Comment: For ED adult patients suspected of sepsis, MDW<=20.0 does not rule out sepsis or risk of sepsis Performed By: #### A DIFF, GFR, CBC, ANEU, MDW, CMP, PBNP #### [address] [address] .NEUABSon 11-10-2024 Neutrophil, Absolute 3.0 10 3/mcL Normal 2.3-8.1 [facility] Comment on above: Performed By: #### A DIFF, GFR, CBC, ANEU, MDW, CMP, PBNP #### [place] [address] CBCon 11-10-2024 Erythrocyte distribution width (RBC) [Ratio] 12.6 % Normal 11.5-15.5 [facility] Comment on above: Performed By: #### A DIFF, GFR, CBC, ANEU, MDW, CMP, PBNP #### [address] [address] Hematocrit (Bld) [Volume fraction] 42.3 % Normal 34.0-46.0 [facility] Comment on above: Performed By: #### A DIFF, GFR, CBC, ANEU, MDW, CMP, PBNP #### [address] [address] Hgb 14.2 G/dL Normal 12.0-16.0 [facility] Comment on above: Performed By: #### A DIFF, GFR, CBC, ANEU, MDW, CMP, PBNP #### [address] [address] MCH (RBC) [Entitic mass] 30.5 pg Normal 27.0-33.0 [facility] Comment on above: Performed By: #### A DIFF, GFR, CBC, ANEU, MDW, CMP, PBNP #### [address] [address] MCHC 33.6 G/dL Normal 32.0-36.0 [facility] Comment on above: Performed By: #### A DIFF, GFR, CBC, ANEU, MDW, CMP, PBNP #### [address] [address] MCV (RBC) [Entitic vol] 91.0 fL Normal 80.0-99.0 [facility] Comment on above: Performed By: #### A DIFF, GFR, CBC, ANEU, MDW, CMP, PBNP #### [address] [address] Platelet 194 10 3/mcL Normal 150-450 [facility] Comment on above: Performed By: #### A DIFF, GFR, CBC, ANEU, MDW, CMP, PBNP #### [address] [address] Platelet mean volume (Bld) [Entitic vol] 8.7 fL Normal 6.6-10.5 [facility] Comment on above: Performed By: #### A DIFF, GFR, CBC, ANEU, MDW, CMP, PBNP #### [address] [address] RBC 4.65 10 6/mcL Normal 4.10-5.30 [facility] Comment on above: Performed By: #### A DIFF, GFR, CBC, ANEU, MDW, CMP, PBNP #### [address] [address] WBC 5.3 10 3/mcL Normal 4.5-10.8 [facility] Comment on above: Performed By: #### A DIFF, GFR, CBC, ANEU, MDW, CMP, PBNP #### [address] [address] CMPon 11-10-2024 Albumin Level 3.7 G/dL Normal 3.5-5.0 [facility] Comment on above: Performed By: #### A DIFF, GFR, CBC, ANEU, MDW, CMP, PBNP #### [address] [address] Albumin/Globulin [Mass ratio] 1.2 {ratio} Normal 1.1-2.5 [facility] Comment on above: Performed By: #### A DIFF, GFR, CBC, ANEU, MDW, CMP, PBNP #### [address] [address] ALP [Catalytic activity/Vol] 55 U/L Normal 40-135 [facility] Comment on above: Performed By: #### A DIFF, GFR, CBC, ANEU, MDW, CMP, PBNP #### [address] [address] ALT [Catalytic activity/Vol] 29 U/L Normal 14-59 [facility] Comment on above: Performed By: #### A DIFF, GFR, CBC, ANEU, MDW, CMP, PBNP #### [place] [address] AST [Catalytic activity/Vol] 13 U/L Normal 10-40 [facility] Comment on above: Performed By: #### A DIFF, GFR, CBC, ANEU, MDW, CMP, PBNP #### [address] [address] Bili Total 0.4 mg/dL Normal 0.2-1.0 [facility] Comment on above: Result Comment: Use of this assay is not recommended for patients undergoing treatment with eltrombopag due to the potential for falsely elevated results. Performed By: #### A DIFF, GFR, CBC, ANEU, MDW, CMP, PBNP #### [address] [address] BUN/Creatinine Ratio 19 ratio Normal 7-27 [facility] Comment on above: Performed By: #### A DIFF, GFR, CBC, ANEU, MDW, CMP, PBNP #### [address] [address] Calcium [Mass/Vol] 8.7 mg/dL Normal 8.4-10.2 [facility] Comment on above: Performed By: #### A DIFF, GFR, CBC, ANEU, MDW, CMP, PBNP #### [place] [address] Chloride [Moles/Vol] 111 mmol/L High 98-107 [facility] Comment on above: Performed By: #### A DIFF, GFR, CBC, ANEU, MDW, CMP, PBNP #### [place] [address] CO2 [Moles/Vol] 23 mmol/L Normal 22-29 [facility] Comment on above: Performed By: #### A DIFF, GFR, CBC, ANEU, MDW, CMP, PBNP #### [place] [address] Creatinine [Mass/Vol] 0.77 mg/dL Normal 0.51-0.95 [facility] Comment on above: Performed By: #### A DIFF, GFR, CBC, ANEU, MDW, CMP, PBNP #### [place] [address] Electrolyte Balance 7.0 mEq/L Normal 4.0-15.0 [facility] Comment on above: Performed By: #### A DIFF, GFR, CBC, ANEU, MDW, CMP, PBNP #### [place] [address] Globulin 3.1 G/dL Normal 2.7-4.4 [facility] Comment on above: Performed By: #### A DIFF, GFR, CBC, ANEU, MDW, CMP, PBNP #### [place] [address] Glucose [Mass/Vol] 105 mg/dL Normal 70-105 [facility] Comment on above: Performed By: #### A DIFF, GFR, CBC, ANEU, MDW, CMP, PBNP #### [place] [address] Potassium [Moles/Vol] 3.9 mmol/L Normal 3.5-5.1 [facility] Comment on above: Performed By: #### A DIFF, GFR, CBC, ANEU, MDW, CMP, PBNP #### [place] [id number] Sodium [Moles/Vol] 141 mmol/L Normal 136-145 [facility] Comment on above: Performed By: #### A DIFF, GFR, CBC, ANEU, MDW, CMP, PBNP #### [place] [address] [place], [place] [address] Total Protein 6.8 G/dL Normal 6.4-8.2 [facility] Comment on above: Performed By: #### A DIFF, GFR, CBC, ANEU, MDW, CMP, PBNP #### [place] [address] [place], [place] [address] Urea nitrogen [Mass/Vol] 15 mg/dL Normal 7-18 [facility] Comment on above: Performed By: #### A DIFF, GFR, CBC, ANEU, MDW, CMP, PBNP #### [place] [address] [place], [place] [address] LABORATORYOrdered By: SYSTEM SYSTEM on 11-10-2024 Albumin BCP dye [Mass/Vol] 3.7 G/dL Normal 3.5 - 5.0 G/dL AO ADM SS Albumin/Globulin [Mass ratio] 1.2 {ratio} Normal 1.1 - 2.5 ratio AO ADM SS ALP [Catalytic activity/Vol] 55 U/L Normal 40 - 135 U/L AO ADM SS ALT With P-5'-P [Catalytic activity/Vol] 29 U/L Normal 14 - 59 U/L AO ADM SS AST With P-5'-P [Catalytic activity/Vol] 13 U/L Normal 10 - 40 U/L AO ADM SS Basophils (Bld) [#/Vol] 0.0 103/mcL Normal 0.0 - 0.3 10^3/mcL AO Workflow SS Basophils/100 WBC (Bld) 0.9 % Normal 0.0 - 2.5 % AO Workflow SS Bilirubin [Mass/Vol] 0.4 mg/dL Normal 0.2 - 1 .0 mg/dL AO ADM SS Comment on above: Interpretive Data: U se of this assay is not recommended for patients undergoing treatment with eltrombopag due to the potential for falsely elevated results. Calcium [Mass/Vol] 8.7 mg/dL Normal 8.4 - 10. 2 mg/dL AO ADM SS Chloride [Moles/Vol] 111 mmol/L High 98 - 10 7 mmol/L AO ADM SS CO2 [Moles/Vol] 23 mmol/L Normal 22 - 29 mmol/L AO ADM SS Creatinine [Mass/Vol] 0.77 mg/dL Normal 0.51 - 0.95 mg/dL AO ADM SS Electrolyte Balance 7.0 mEq/L Normal 4.0 - 15 .0 mEq/L AO ADM SS Eosinophil, Absolute 0.2 103/mcL Normal 0.0 - 0 .7 10^3/mcL AO Workflow SS Eosinophils/100 WBC (Bld) 3.8 % Normal 0.0 - 6.0 % AO Workflow SS Erythrocyte distribution width (RBC) [Ratio] 12.6 % Normal 11.5 - 15.5 % AO Workflow SS Estimated Glomerular Filtration Rate 99 ml/min/1.73sqm Invalid Interpretation Code AO Chemistry S Comment on above: Interpretive Data: Stages of Chronic Kidney Disease (CKD) Stage Description eGFR(ml/min/1.73 sq.m.) CKD 1 Normal kidney function or >=90 normal kindney function with possible kidney damage (ex. Proteinuria) CKD 2 Kidney damage with mild loss 60-89 of kidney function CKD 3a Mild to moderate loss of kidney 45-59 function CKD 3b Moderate to severe loss of 30-44 of kindey function CKD 4 Severe loss of kidney function 15-29 CKD 5 Kidney failure <15 Note: (go live 2024) the eGFR calculation was updated to the 2020 CKD-EPI creatinine equation without a race factor to calculate the eGFR results. Globulin 3.1 G/dL Normal 2.7 - 4.4 G/dL AO ADM SS Glucose [Mass/Vol] 105 mg/dL Normal 70 - 105 mg/dL AO ADM SS Hematocrit (Bld) [Volume fraction] 42.3 % Normal 34.0 - 46.0 % AO Workflow SS Hemoglobin (Bld) [Mass/Vol] 14.2 G/dL Normal 12.0 - 16.0 G/dL AO Workflow SS Lymphocytes (Bld) [#/Vol] 1.7 103/mcL Normal 0.9 - 4.3 10^3/mcL AO Workflow SS Lymphocytes/100 WBC (Bld) 32.1 % Normal 20.0 - 40.0 % AO Workflow SS MCH (RBC) [Entitic mass] 30.5 pg Normal 27.0 - 33.0 pg AO Workflow SS MCHC 33.6 G/dL Normal 32.0 - 36.0 G/dL AO Workflow SS MCV (RBC) [Entitic vol] 91.0 fL Normal 80.0 - 99.0 fL AO Workflow SS Monocyte distribution width Auto (Bld) [Entitic vol] 16.34 1 Normal 0.00 - 20.00 AO Workflow SS Comment on above: Result Comment: For ED adult patients suspected of sepsis, MDW<=20.0 does not rule out sepsis or risk of sepsis Monocytes (Bld) [#/Vol] 0.3 103/mcL Normal 0.1 - 1.4 10^3/mcL AO Workflow SS Monocytes/100 WBC (Bld) 6.2 % Normal 2.0 - 13.0 % AO Workflow SS Natriuretic peptide.B prohormone N-Terminal [Mass/Vol] 94 pg/mL Normal 0 - 125 pg/mL AO ADM SS Comment on above: Interpretive Data: N T-proBNP results of less than 300 pg/mL effectively rules out acute congestive heart failure with 99% negative predictive value. Neutrophils (Bld) [#/Vol] 3.0 103/mcL Normal 2.3 - 8.1 10^3/mcL AO Workflow SS Neutrophils/100 WBC (Bld) 57.0 % Normal 50.0 - 75.0 % AO Workflow SS Platelet mean volume (Bld) [Entitic vol] 8.7 fL Normal 6.6 - 10.5 fL AO Workflow SS Platelets (Bld) [#/Vol] 194 103/mcL Normal 150 - 450 10^3/mcL AO Workflow SS Potassium [Moles/Vol] 3.9 mmol/L Normal 3.5 - 5.1 mmol/L AO ADM SS Protein [Mass/Vol] 6.8 G/dL Normal 6.4 - 8.2 G/dL AO ADM SS RBC (Bld) [#/Vol] 4.65 106/mcL Normal 4.10 - 5.3 0 10^6/mcL AO Workflow SS Sodium [Moles/Vol] 141 mmol/L Normal 136 - 145 mmol/L AO ADM SS Urea nitrogen [Mass/Vol] 15 mg/dL Normal 7 - 18 mg/dL AO ADM SS Urea nitrogen/Creatinine [Mass ratio] 19 ratio Normal 7 - 27 ratio AO ADM SS WBC (Bld) [#/Vol] 5.3 103/mcL Normal 4.5 - 10.8 10^3/mcL AO Workflow SS LABORATORYOrdered By: Miranda Rodriguez on 11-10-2024 Appearance (U) Clear (11/10/24 7:48 AM) Normal Clear AO Auto Urine SS Bilirubin Ql (U) Negative (11/10/24 7:48 AM) Normal Negative AO Auto Urine SS Color (U) Yellow (11/10/24 7:48 AM) Normal AO Auto Urine SS Glucose Test strip (U) [Mass/Vol] Negative Normal Negative AO Auto Urine SS Hemoglobin Auto test strip (U) [Mass/Vol] Negative (11/10/24 7:48 AM) Normal Negative AO Auto Urine SS Ketones Ql (U) Negative Normal Negative AO Auto Urine SS UA Leuk Est Negative (11/10/24 7:48 AM) Normal Negative AO Auto Urine SS UA Nitrite Negative (11/10/24 7:48 AM) Normal Negative AO Auto Urine SS UA pH 7.5 (11/10/24 7:48 AM) Normal 5.0 - 8.0 AO Auto Urine SS UA Protein Negative Normal Negative AO Auto Urine SS UA Spec Grav 1.015 (11/10/24 7:48 AM) Normal 1.015-1.025 AO Auto Urine SS UA Specimen Type Clean Catch (11/10/24 7:48 AM) Normal AO Auto Urine SS UA Urobilinogen 0.2 E.U./dL Normal 0.2-1.0 AO Auto Urine SS PBNPon 11-10-2024 Natriuretic peptide B (Bld) [Mass/Vol] 94 pg/mL Normal 0-125 [facility] Comment on above: Result Comment: NT-p roBNP results of less than 300 pg/mL effectively rules out acute congestive heart failure with 99% negative predictive value. Performed By: #### A DIFF, GFR, CBC, ANEU, MDW, CMP, PBNP #### [address] [place], [place] [address] UAon 11-10-2024 Color (U) Yellow Normal [facility] Comment on above: Order Comment: Florence jack reading performed for urine reagent strip. Performed By: #### U A #### [address] [address] Glucose (U) [Mass/Vol] Negative Normal Negative [facility] Comment on above: Order Comment: Manua l reading performed for urine reagent strip. Performed By: #### U A #### [place] [address] Ketones Ql (U) Negative Normal Negative [facility] Comment on above: Order Comment: Manua l reading performed for urine reagent strip. Performed By: #### U A #### [place] [address] UA Appear Clear Normal Clear [facility] Comment on above: Order Comment: Manua l reading performed for urine reagent strip. Performed By: #### U A #### [place] [address] UA Blood Negative Normal Negative [facility] Comment on above: Order Comment: Manua l reading performed for urine reagent strip. Performed By: #### U A #### [place] [address] UA Leuk Est Negative Normal Negative [facility] Comment on above: Order Comment: Manua l reading performed for urine reagent strip. Performed By: #### U A #### [place] [address] UA Nitrite Negative Normal Negative [facility] Comment on above: Order Comment: Manua l reading performed for urine reagent strip. Performed By: #### U A #### [place] [address] UA pH 7.5 Normal 5.0 - 8.0 [facility] Comment on above: Order Comment: Manua l reading performed for urine reagent strip. Performed By: #### U A #### [place] [address] UA Protein Negative Normal Negative [facility] Comment on above: Order Comment: Manua l reading performed for urine reagent strip. Performed By: #### U A #### [place] [address] UA Spec Grav 1.015 Normal 1.015-1.025 [facility] Comment on above: Order Comment: Manua l reading performed for urine reagent strip. Performed By: #### U A #### [address] [address] UA Specimen Type Clean Catch Normal [facility] Comment on above: Order Comment: Manua l reading performed for urine reagent strip. Performed By: #### U A #### [address] [address] UA Urobilinogen 0.2 E.U./dL Normal 0.2-1.0 [facility] Comment on above: Order Comment: Manua l reading performed for urine reagent strip. Performed By: #### U A #### [address] [address] Urobilinogen (U) [Mass/Vol] Negative Normal Negative [facility] Comment on above: Order Comment: Manua l reading performed for urine reagent strip. Performed By: #### U A #### [address] [address] XR CHEST 2 VIEWSon XR CHEST 2 VIEWS ORIGINAL EXAMINATION: TWO XRAY VIEWS OF THE CHEST 11/10/2024 8:23 am COMPARISON: 08/16/2024 HISTORY: ORDERING SYSTEM PROVIDED HISTORY: Reason for Exam: SOB FINDINGS: Normal cardiomediastinal silhouette. Clear lungs, sharp costophrenic angles. No pneumothorax. Intact bones. IMPRESSION: Normal chest radiograph Interpreted by: Brionna Isaac Preliminary Report By: Brionna Isaac Electronically signed By Brionna Isaac Dictated Date: 11/10/2024 8:29:21 AM Prelim Date: 11/10/2024 8:29:57 AM Sign Date: 11/10/2024 8:29:57 AM Ordering Provider: JERRELL MANUEL [facility] Rashid 10-11-2024 [facility] Telephone (FPWADS) DEANDRA MCCRAY ([id number]) 1985 F Date Time Provider Department 10/11/24 JM CHILDRESS During your visit today, we recorded the following information about you: Jm Childress MD 10/11/2024 2:00 PM Signed E-consult placed to nephrology. Encounter Diagnosis ICD-10-CM 1. Hypokalemia E87.6 E-CONSULT NEPHROLOGY 2. Hyperchloremia E87.8 E-CONSULT NEPHROLOGY 3. Hypocarbia R79.81 E-CONSULT NEPHROLOGY MD Fior Cho Jeffery R, MD 10/14/2024 4:36 PM Signed Executive Team Leader suggests likely the low potassium and CO2 from stool losses. Advises potassium supplement and sodium bicarbonate. Repeat labs in a few weeks. The kidney doctor also recommends checking magnesium, which can be affected by the diarrhea. For mid October Telephone on 10/11/24 BASIC METABOLIC PANEL MAGNESIUM MD Fior Cho Jeffery R, MD 10/14/2024 4:36 PM Signed Addended by: JASBIR CHILDRESS on: 10/14/2024 04:36 PM Modules accepted: Orders Allergies As of Date: 10/11/2024 Noted Allergy Reaction BLEACH (SODIUM HYPOCHLORITE) 07/09/2024 16 - Unknown CODEINE 08/05/2016 8 - GI Upset PAROXETINE 07/09/2024 16 - Unknown PAXIL (PAROXETINE HCL) 04/24/2006 2 - Rash TYLENOL-CODEINE #3 (ACETAMINOPHEN*05/11/20 05 8 - GI Upset Date Reviewed: 09/04/2024 Reviewed by: Breanne Bowden PA-C - Fully Assessed Primary Visit Diagnosis:Hypokalemia [E87.6] Other Visit Diagnoses:Hyperchloremi a [E87.8] Hypocarbia [R79.81] Order(s):E-CONSULT NEPHROLOGY [[id number]] Order #: [id number]: 1 sodium bicarbonate 650 mg tabletTake 1 tablet by mouth four times daily.Disp: 120 tabletRfl: 2 potassium chloride (K-TAB) 10 mEq tabletTake 2 tablets by mouth two times a day.Disp: 60 tabletRfl: 2 BASIC METABOLIC PANEL [SQBMP] Order #: [id number] FUTURE MAGNESIUM [SQMG1] Order #: [id number] FUTURE Prescriptions as of 10/14/2024 - sodium bicarbonate 650 mg tablet Take 1 tablet by mouth four times daily. - potassium chloride (K-TAB) 10 mEq tablet Take 2 tablets by mouth two times a day. - topiramate (TOPAMAX) 100 mg tablet Take 1 tablet by mouth daily at bedtime. - rimegepant (NURTEC ODT) 75 mg disintegrating tablet Take 1 tablet by mouth once daily as needed. - albuterol HFA (PROVENTIL HFA, VENTOLIN HFA) 90 mcg/actuation inhaler Inhale 2 Puffs as instructed every 6 hours as needed. - buPROPion SR (WELLBUTRIN SR) 150 mg 12 hr tablet Take 1 tablet by mouth two times a day. - melatonin 3 mg tablet Take 1 tablet at 9-10PM nightly. - NAPROXEN ORAL Take by mouth as needed. - ibuprofen (MOTRIN) 600 mg tablet TAKE 1 TABLET BY MOUTH EVERY 6 HOURS NEEDED FOR PAIN FOR 10 DAYS WITH FOOD/MILK FOR 10 DAYS - ondansetron (ZOFRAN) 4 mg tablet TAKE 1 TABLET BY MOUTH EVERY 6 HOURS NEEDED FOR NAUSEA/VOMITING FOR 5 DAYS Problem List As Of Date 10/11/2024 Noted Resolved RH ISOIMMUNIZAT-ANTEPART [O36.0990] 02/16/2006 12/17/2007 Lump or Mass in Breast [N63.0] 12/17/2007 12/09/2009 Mastodynia [N64.4] 12/17/2007 12/09/2009 ENDOMETRIOSIS NOS [N80.9] 12/17/2007 Dysmenorrhea [N94.6] 12/17/2007 04/14/2014 Female infertility of unspecified origin [N97.9]12/17/2007 12/05/2011 DIFFUS CYSTIC MASTOPATHY [N60.19] 01/04/2008 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0] 04/14/2014 Complex ovarian cyst [N83.299] 04/14/2014 Migraine with aura [G43.109] 07/17/2014 Tobacco abuse disorder [Z72.0] 01/13/2015 Chronic pelvic pain in female [R10.2, G89.29] 02/02/2016 Abnormal uterine bleeding [N93.9] 02/02/2016 Irritable bowel syndrome with diarrhea [K58.0] 02/02/2016 Gastroesophageal reflux disease [K21.9] 09/11/2020 Leg pain, bilateral [M79.604, M79.605] 04/26/2021 Palpitations [R00.2] 10/26/2021 Shortness of breath [R06.02] 03/25/2024 Precordial pain [R07.2] 03/25/2024 Prescriptions ordered this encounter Disp Refills Start End SODIUM BICARBONATE 650 MG TABLET 120 * 2 10/14/2024 Route: ORAL Sig: Take 1 tablet by mouth four times daily. POTASSIUM CHLORIDE ER 10 MEQ TABLET,* 60 t* 2 10/14/2024 Route: ORAL Sig: Take 2 tablets by mouth two times a day. Encounter Status:Closed by JASBIR CHILDRESS on 10/11/24 Normal [facility] CBC panel Auto (Bld)on 10-10 Erythrocyte distribution width (RBC) [Ratio] 11.9 % Normal 11.5-15.0 [facility] Comment on above: Order Comment: Speci men Type: BLOOD SPECIMENOrdering Facility: [facility] Address: [address] [place] [address] Performed By: #### 5 8410-2 ####[facility] JOHANWNCLIA [id number] [place] [address] [place] Hematocrit (Bld) [Volume fraction] 37.1 % Normal 36.0-46.0 [facility] Comment on above: Order Comment: Speci men Type: BLOOD SPECIMENOrdering Facility: [facility] Address: [address] [place] [address] Performed By: #### 5 8410-2 ####[facility] ERNCLIA [id number] [place] [address] [place] Hemoglobin (Bld) [Mass/Vol] 12.4 g/dL Normal 11.5-15.5 [facility] Comment on above: Order Comment: Speci men Type: BLOOD SPECIMENOrdering Facility: [facility] Address: [address] [place] [address] Performed By: #### 5 8410-2 ####[facility] ERNCLIA [id number] [place] [address] [place] MCH (RBC) [Entitic mass] 30.0 pg Normal 26.0-34.0 [facility] Comment on above: Order Comment: Speci men Type: BLOOD SPECIMENOrdering Facility: [facility] Address: [address] [place] [address] Performed By: #### 5 8410-2 ####[facility] ERNCLIA [id number] [place] [address] [place] MCHC (RBC) [Mass/Vol] 33.4 g/dL Normal 30.5-36.0 [facility] Comment on above: Order Comment: Speci men Type: BLOOD SPECIMENOrdering Facility: [facility] Address: [address] [place] [address] Performed By: #### 5 8410-2 ####[facility] MILLWNCLIA [id number] [place] [address] [place] MCV (RBC) [Entitic vol] 89.8 fL Normal 80.0-100.0 C [facility] Comment on above: Order Comment: Speci men Type: BLOOD SPECIMENOrdering Facility: [facility] Address: [address] [place] [address] Performed By: #### 5 8410-2 ####[facility]ENTERLIA [id number] [place] [address] [place] Nucleated RBC (Bld) [#/Vol] 10*3/uL Normal <0.01 [facility] Comment on above: Order Comment: Speci men Type: BLOOD SPECIMENOrdering Facility: [facility] Address: [address] [place] [address] Performed By: #### 5 8410-2 ####[facility]ENTERLIA [id number] [place] [address] [place] Platelet mean volume (Bld) [Entitic vol] 11.2 fL Normal 9.0-12.7 [facility] Comment on above: Order Comment: Speci men Type: BLOOD SPECIMENOrdering Facility: [facility] Address: [address] [place] [address] Performed By: #### 5 8410-2 ####[facility]IA [id number] [place] [address] [place] Platelets (Bld) [#/Vol] 182 10*3/uL Normal 150-400 [facility] Comment on above: Order Comment: Speci men Type: BLOOD SPECIMENOrdering Facility: [facility] Address: [address] [place] [address] Performed By: #### 5 8410-2 ####[facility]ENTERLIA [id number] [place] [address] [place] RBC (Bld) [#/Vol] 4.13 10*6/uL Normal 3.90-5.20 [facility] Comment on above: Order Comment: Speci men Type: BLOOD SPECIMENOrdering Facility: [facility] Address: [address] [place] [address] Performed By: #### 5 8410-2 ####[facility] ERNCRONALDA [id number] [place] [address] [place] WBC (Bld) [#/Vol] 6.62 10*3/uL Normal 3.70-11.00 [facility] Comment on above: Order Comment: Speci men Type: BLOOD SPECIMENOrdering Facility: [facility] Address: [address] [place] [address] Performed By: #### 5 8410-2 ####[facility] ERNCRONALDA [id number] [place] [address] [place] Comprehensive metabolic 2000 panelon 10-10-2024 Albumin [Mass/Vol] 4.3 g/dL Normal 3.9-4.9 [facility] Comment on above: Order Comment: Speci men Type: BLOOD SPECIMENOrdering Facility: [facility] Address: [address] [place] [address] Performed By: #### 2 4323-8 ####[facility] ERNCRONALDA [id number] [place] [address] [place] ALP [Catalytic activity/Vol] 54 U/L Normal 34-123 [facility] Comment on above: Order Comment: Speci men Type: BLOOD SPECIMENOrdering Facility: [facility] Address: [address] [place] [address] Performed By: #### 2 4323-8 ####[facility] ERNCLIA [id number] [place] [address] [place] ALT [Catalytic activity/Vol] 12 U/L Normal 7-38 [facility] Comment on above: Order Comment: Speci men Type: BLOOD SPECIMENOrdering Facility: [facility] Address: [address] [place] [address] Performed By: #### 2 4323-8 ####[facility] MILLTOWNCLIA [id number] [place] [address] [place] Anion gap [Moles/Vol] 8 mmol/L Normal 8-15 [facility] Comment on above: Order Comment: Speci men Type: BLOOD SPECIMENOrdering Facility: [facility] Address: [address] [place] [address] Performed By: #### 2 4323-8 ####[facility] ERNCLIA [id number] [place] [address] [place] AST [Catalytic activity/Vol] 11 U/L Low 13-35 [facility] Comment on above: Order Comment: Speci men Type: BLOOD SPECIMENOrdering Facility: [facility] Address: [address] [place] [address] Performed By: #### 2 4323-8 ####[facility] MILLWNCLIA [id number] [place] [address] [place] Bilirubin [Mass/Vol] 0.2 mg/dL Normal 0.2-1.3 [facility] Comment on above: Order Comment: Speci men Type: BLOOD SPECIMENOrdering Facility: [facility] Address: [address] [place] [address] Performed By: #### 2 4323-8 ####[facility] MILLSAYLORSBURGNCLIA [id number] [place] [address] [place] Calcium [Mass/Vol] 9.3 mg/dL Normal 8.5-10.2 [facility] Comment on above: Order Comment: Speci men Type: BLOOD SPECIMENOrdering Facility: [facility] Address: [address] [place] [address] Performed By: #### 2 4323-8 ####[facility] ERNCLIA [id number] [place] [address] [place] Chloride [Moles/Vol] 108 mmol/L High 98-107 [facility] Comment on above: Order Comment: Speci men Type: BLOOD SPECIMENOrdering Facility: [facility] Address: [address] [place] [address] Performed By: #### 2 4323-8 ####[facility] [id number] [place] [address] [place] CO2 [Moles/Vol] 21 mmol/L Low 22-30 [facility] Comment on above: Order Comment: Speci men Type: BLOOD SPECIMENOrdering Facility: [facility] Address: [address] [place] [address] Performed By: #### 2 4323-8 ####[facility] [id number] [place] [address] [place] Creatinine [Mass/Vol] 0.72 mg/dL Normal 0.58-0.96 [facility] Comment on above: Order Comment: Speci men Type: BLOOD SPECIMENOrdering Facility: [facility] Address: [address] [place] [address] Performed By: #### 2 4323-8 ####[facility] [id number] [place] [address] [place] Creatinine and Glomerular filtration rate.predicted panel (S/P/Bld) 108 mL/min/1.73m??? Normal >=60 [facility] Comment on above: Order Comment: Speci men Type: BLOOD SPECIMENOrdering Facility: [facility] Address: [address] [place] [address] Result Comment: Eugenia mated Glomerular Filtration Rate (eGFR) is calculated using the 2020 CKD-EPI creatinine equation. This equation utilizes serum creatinine, sex, and age as parameters. The creatinine assay has traceable calibration to isotope dilution-mass spectrometry. Refer to KDIGO guidelines for clinical interpretation. In patients with unstable renal function, e.g. those with acute kidney injury, the eGFR may not accurately reflect actual GFR. Performed By: #### 2 4323-8 ####[facility] ERTRENATOO[facility] [id number] [place] [address] [place] Glucose [Mass/Vol] 99 mg/dL Normal 74-99 [facility] Comment on above: Order Comment: Luisa rivas Type: BLOOD SPECIMENOrdering Facility: [facility] Address: [address] [place] [address] Result Comment: The [place] [employer] (ADA) provides guidance for cutoff values for fasting glucose and random glucose. The ADA defines fasting as no caloric intake for at least 8 hours. Fasting plasma glucose results between 100 to 125 mg/dL indicate increased risk for diabetes (prediabetes). Fasting plasma glucose results greater than or equal to 126 mg/dL meet the criteria for diagnosis of diabetes. In the absence of unequivocal hyperglycemia, results should be confirmed by repeat testing. In a patient with classic symptoms of hyperglycemia or hyperglycemic crisis, random plasma glucose results greater than or equal to 200 mg/dL meet the criteria for diagnosis of diabetes. Reference: Standards of Medical Care in Diabetes 2016, [place] [employer]. Diabetes Care. 2016.39(Suppl 1). Performed By: #### 2 4323-8 ####[facility] [id number] [place] [address] [place] Potassium [Moles/Vol] 3.4 mmol/L Low 3.7-5.1 [facility] Comment on above: Order Comment: Luisa rivas Type: BLOOD SPECIMENOrdering Facility: [facility] Address: [address] [place] [address] Performed By: #### 2 4323-8 ####[facility] [id number] [place] [address] [place] Protein [Mass/Vol] 6.6 g/dL Normal 6.3-8.0 [facility] Comment on above: Order Comment: Speci men Type: BLOOD SPECIMENOrdering Facility: [facility] Address: [address] [place] [address] Performed By: #### 2 4323-8 ####[facility] CHARLOTTEWNCLIA [id number] [place] [address] [place] Sodium [Moles/Vol] 137 mmol/L Normal 136-144 [facility] Comment on above: Order Comment: Speci men Type: BLOOD SPECIMENOrdering Facility: [facility] Address: [address] [place] [address] Performed By: #### 2 4323-8 ####[facility] [id number] [address] [place] Urea nitrogen [Mass/Vol] 14 mg/dL Normal 7-21 [facility] Comment on above: Order Comment: Speci men Type: BLOOD SPECIMENOrdering Facility: [facility] Address: [address] [place] [address] Performed By: #### 2 4323-8 ####[facility]ENTERLIA [id number] [place] [address] [place] FSH SerPl-aCncon 10-10-2024 Follitropin Qn 1.8 m[IU]/mL Normal See comment [facility] Comment on above: Order Comment: Speci men Type: BLOOD SPECIMENOrdering Facility: [facility] Address: [address] [place] [address] Result Comment: Refe rence range: Follicular: 3.5-12.5 mIU/mL Ovulation: 4.7-21.5 mIU/mL Luteal: 1.7-7.7 mIU/mL Postmenopausal: 25.8-134.8 mIU/mL Performed By: #### 1 5067-2, [id number] ####[facility] LABCLIA [id number] [address] [place] LH SerPl-aCncon 10-10-2024 Lutropin Qn 2.0 m[IU]/mL Normal See comment [facility] Comment on above: Order Comment: Speci men Type: BLOOD SPECIMENOrdering Facility: [facility] Address: [address] [place] [address] [place] [address] Result Comment: Refe rence range: Follicular: 2.4-12.6 mIU/mL Midcycle: 14.0-95.6 mIU/mL Luteal: 1.0-11.4 mIU/mL Post [place]: 7.7-58.5 mIU/mL Performed By: #### 1 5067-2, 42760-7 ####[facility] LABCLIA [id number] [address] [facility] DEANDRA MCCRAY ([id number]) 1985 F Date Time Provider Department 09/24/24 MARTA ELLINGTON SYNN During your visit today, we recorded the following information about you: Allergies As of Date: 09/24/2024 Noted Allergy Reaction BLEACH (SODIUM HYPOCHLORITE) 07/09/2024 16 - Unknown CODEINE 08/05/2016 8 - GI Upset PAROXETINE 07/09/2024 16 - Unknown PAXIL (PAROXETINE HCL) 04/24/2006 2 - Rash TYLENOL-CODEINE #3 (ACETAMINOPHEN*05/11/20 05 8 - GI Upset Date Reviewed: 09/04/2024 Reviewed by: Breanne Bowden PA-C - Fully Assessed Reason for Visit: Appointment [186] Cmt: Left message on voicemail that tilt table test will be cancelled per Karen Saul PA-C. Patient had tilt test in May 2024 Prescriptions as of 09/24/2024 - topiramate (TOPAMAX) 100 mg tablet Take 1 tablet by mouth daily at bedtime. - rimegepant (NURTEC ODT) 75 mg disintegrating tablet Take 1 tablet by mouth once daily as needed. - albuterol HFA (PROVENTIL HFA, VENTOLIN HFA) 90 mcg/actuation inhaler Inhale 2 Puffs as instructed every 6 hours as needed. - buPROPion SR (WELLBUTRIN SR) 150 mg 12 hr tablet Take 1 tablet by mouth two times a day. - melatonin 3 mg tablet Take 1 tablet at 9-10PM nightly. - NAPROXEN ORAL Take by mouth as needed. - ibuprofen (MOTRIN) 600 mg tablet TAKE 1 TABLET BY MOUTH EVERY 6 HOURS NEEDED FOR PAIN FOR 10 DAYS WITH FOOD/MILK FOR 10 DAYS - ondansetron (ZOFRAN) 4 mg tablet TAKE 1 TABLET BY MOUTH EVERY 6 HOURS NEEDED FOR NAUSEA/VOMITING FOR 5 DAYS Problem List As Of Date 09/24/2024 Noted Resolved RH ISOIMMUNIZAT-ANTEPART [O36.0990] 02/16/2006 12/17/2007 Lump or Mass in Breast [N63.0] 12/17/2007 12/09/2009 Mastodynia [N64.4] 12/17/2007 12/09/2009 ENDOMETRIOSIS NOS [N80.9] 12/17/2007 Dysmenorrhea [N94.6] 12/17/2007 04/14/2014 Female infertility of unspecified origin [N97.9]12/17/2007 12/05/2011 DIFFUS CYSTIC MASTOPATHY [N60.19] 01/04/2008 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0] 04/14/2014 Complex ovarian cyst [N83.299] 04/14/2014 Migraine with aura [G43.109] 07/17/2014 Tobacco abuse disorder [Z72.0] 01/13/2015 Chronic pelvic pain in female [R10.2, G89.29] 02/02/2016 Abnormal uterine bleeding [N93.9] 02/02/2016 Irritable bowel syndrome with diarrhea [K58.0] 02/02/2016 Gastroesophageal reflux disease [K21.9] 09/11/2020 Leg pain, bilateral [M79.604, M79.605] 04/26/2021 Palpitations [R00.2] 10/26/2021 Shortness of breath [R06.02] 03/25/2024 Precordial pain [R07.2] 03/25/2024 Encounter Status:Closed by MARTA ELLINGTON on 09/24/24 [facility] 09-23-2024 [facility] Telephone (SYNN) DEANDRA MCCRAY ([id number]) 1985 F Date Time Provider Department 09/23/24 MARTA ELLINGTON SYNTeetee During your visit today, we recorded the following information about you: Marta Ellington, RN 09/23/2024 9:14 AM Signed I called patient and left message on voicemail to either call the syncope lab or view my chart message regarding cancelling tilt table test for October 02. Patient recently had a tilt test in May and Karen Saul PA-C stated to cancel upcoming tilt test. Allergies As of Date: 09/23/2024 Noted Allergy Reaction BLEACH (SODIUM HYPOCHLORITE) 07/09/2024 16 - Unknown CODEINE 08/05/2016 8 - GI Upset PAROXETINE 07/09/2024 16 - Unknown PAXIL (PAROXETINE HCL) 04/24/2006 2 - Rash TYLENOL-CODEINE #3 (ACETAMINOPHEN*05/11/20 05 8 - GI Upset Date Reviewed: 09/04/2024 Reviewed by: Breanne Bowden PA-C - Fully Assessed Reason for Visit: Appointment [186] Prescriptions as of 09/23/2024 - topiramate (TOPAMAX) 100 mg tablet Take 1 tablet by mouth daily at bedtime. - rimegepant (NURTEC ODT) 75 mg disintegrating tablet Take 1 tablet by mouth once daily as needed. - albuterol HFA (PROVENTIL HFA, VENTOLIN HFA) 90 mcg/actuation inhaler Inhale 2 Puffs as instructed every 6 hours as needed. - buPROPion SR (WELLBUTRIN SR) 150 mg 12 hr tablet Take 1 tablet by mouth two times a day. - melatonin 3 mg tablet Take 1 tablet at 9-10PM nightly. - NAPROXEN ORAL Take by mouth as needed. - ibuprofen (MOTRIN) 600 mg tablet TAKE 1 TABLET BY MOUTH EVERY 6 HOURS NEEDED FOR PAIN FOR 10 DAYS WITH FOOD/MILK FOR 10 DAYS - ondansetron (ZOFRAN) 4 mg tablet TAKE 1 TABLET BY MOUTH EVERY 6 HOURS NEEDED FOR NAUSEA/VOMITING FOR 5 DAYS Problem List As Of Date 09/23/2024 Noted Resolved RH ISOIMMUNIZAT-ANTEPART [O36.0990] 02/16/2006 12/17/2007 Lump or Mass in Breast [N63.0] 12/17/2007 12/09/2009 Mastodynia [N64.4] 12/17/2007 12/09/2009 ENDOMETRIOSIS NOS [N80.9] 12/17/2007 Dysmenorrhea [N94.6] 12/17/2007 04/14/2014 Female infertility of unspecified origin [N97.9]12/17/2007 12/05/2011 DIFFUS CYSTIC MASTOPATHY [N60.19] 01/04/2008 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0] 04/14/2014 Complex ovarian cyst [N83.299] 04/14/2014 Migraine with aura [G43.109] 07/17/2014 Tobacco abuse disorder [Z72.0] 01/13/2015 Chronic pelvic pain in female [R10.2, G89.29] 02/02/2016 Abnormal uterine bleeding [N93.9] 02/02/2016 Irritable bowel syndrome with diarrhea [K58.0] 02/02/2016 Gastroesophageal reflux disease [K21.9] 09/11/2020 Leg pain, bilateral [M79.604, M79.605] 04/26/2021 Palpitations [R00.2] 10/26/2021 Shortness of breath [R06.02] 03/25/2024 Precordial pain [R07.2] 03/25/2024 Encounter Status:Closed by MARTA ELLINGTON on 09/23/24 [facility] CNOVon 09-04-2024 CNOV Office Visit (GSTNOR ) DEANDRA MCCRAY ([id number]) 1985 F Date Time Provider Department 09/04/24 9:15 AM BREANNE BOWDEN During your visit today, we recorded the following information about you: Pulse Blood pressure Weight Height 62/minute 112/70 68 kg 1.626 m Breanne Bowden PA-C 09/04/2024 9:27 AM Signed CHIEF COMPLAINT: Patient presents with: Rectal Bleeding: Used the Linzess 145 but it gave her Miralax. Saw some some blood when wiping after taking Linzess as well. HPI Deandra Mccray is a 39 year old female here today for Rectal Bleeding (Used the Linzess 145 but it gave her diarrhea. Saw some some blood when wiping after taking Linzess as well.). Seen previously for h/o chronic constipation. Tried Linzess 290 mcg daily last GI visit which resulted in worsened diarrhea. Has previously tried lactulose, fibers, Miralax w/o relief. Currently having a BM every 8 days, constipated, straining, tenesmus, BRBPR when wiping. Reports persistent LUQ discomfort, nausea that improves with BM. States she didn't get X-ray ordered because her schedule got busy. Quit smoking around 8-9 mos. Denies emesis, unintentional weight loss. EGD/Colon 2019 Impression: - Non-bleeding internal hemorrhoids. - Biopsies were taken with a cold forceps from the entire colon for evaluation of microscopic colitis. Impression: - Normal first portion of the duodenum and second portion of the duodenum. - Erythematous mucosa in the antrum. Biopsied. - Medium-sized hiatal hernia. CONVERTED FINAL DIAGNOSIS 1. Antrum, biopsy (A) - Gastric antral mucosa with dilated mucosal capillaries, intramucosal hemorrhage and epithelial reactive changes. See comment. 2. Random colon, biopsy (B) - Colonic mucosa with no diagnostic alteration. SH/glw 04/23/2020 Current Outpatient Medications Medication Sig buPROPion SR (WELLBUTRIN SR) 150 mg 12 hr tablet Take 1 tablet by mouth two times a day. rimegepant (NURTEC ODT) 75 mg disintegrating tablet Take 1 tablet by mouth once daily as needed. melatonin 3 mg tablet Take 1 tablet at 9-10PM nightly. topiramate (TOPAMAX) 100 mg tablet take 1 tablet by mouth everyday at bedtime albuterol HFA (PROVENTIL HFA, VENTOLIN HFA) 90 mcg/actuation inhaler INHALE 2 PUFFS BY MOUTH EVERY 6 HOURS NEEDED DIRECTED NAPROXEN ORAL Take by mouth as needed. ibuprofen (MOTRIN) 600 mg tablet TAKE 1 TABLET BY MOUTH EVERY 6 HOURS NEEDED FOR PAIN FOR 10 DAYS WITH FOOD/MILK FOR 10 DAYS ondansetron (ZOFRAN) 4 mg tablet TAKE 1 TABLET BY MOUTH EVERY 6 HOURS NEEDED FOR NAUSEA/VOMITING FOR 5 DAYS No current facility-administered medications for this visit. 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 Leg pain, bilateral 04/26/2021 PFO (patent foramen ovale) 09/26/2011 TIA (transient ischemic attack) 09/28/2012 Tobacco use disorder PAST SURGICAL HISTORY Procedure Laterality Date CATH AND SALINE/CONTRAST SONOHYSTER/HYSTEROSALPI 2003 DELIVERY ONLY 03/25/06-baby C/S, low cervical 15 WEEK GESTATION BABY DELIVERY ONLY 2009 , low transverse DELIVERY ONLY 05/17/2011 , low transverse COLONOSCOPY FLX DX W/COLLJ SPEC WHEN PFRMD 12/19/2012 Colonoscopy COLONOSCOPY FLX DX W/COLLJ SPEC WHEN PFRMD 04/22/2020 Colonoscopy COLPOSCOPY CERVIX UPPER/ADJACENT VAGINA 2008 Colposcopy CONIZATION CERVIX W/WO DANDC RPR ELTRD EXC 2008 LEEP-Cervix ESOPHAGOGASTRODUODENOSC OPY TRANSORAL DIAGNOSTIC 12/19/2012 EGD ESOPHAGOGASTRODUODENOSC OPY TRANSORAL DIAGNOSTIC 04/22/2020 EGD EXT HYSTERECTOMY,W/PARTIAL VAGINECTO 05/29/2023 EXT HYSTERECTOMY,W/PARTIAL VAGINECTO 11/2023 INSERTION OF IUD 06/24/2013 LAPS ABD PRTMANDOMENTUM DX W/WO SPEC BR/WA SPX 2005 Laparoscopy X2 Endometriosis LAPS ABD PRTMANDOMENTUM DX W/WO SPEC BR/WA SPX 2007 Laparoscopy LIG/TRNSXJ FLP TUBE ABDL/VAG APPR UNI/BI 05/17/2011 Tubal ligation PAST SURGICAL HISTORY OF 2000 SCALP LESION TOTAL ABDOM HYSTERECTOMY (more content not included)... Normal [facility] CNOVon 09-03-2024 CNOV Office Visit ([id number] ) DEANDRA MCCRAY ([id number]) 1985 F Date Time Provider Department 09/03/24 2:00 PM BILLY LYNN [id number] During your visit today, we recorded the following information about you: Pulse Respiration Blood pressure Weight 89/minute 18/minute 96/67 67.6 kg Billy Lynn MD 09/03/2024 2:23 PM Signed [facility] Service: Pulmonary AND Critical Care Deandra Mccray [id number] SERVICE DATE: 09/03/2024 SERVICE TIME: 1:54 PM REASON FOR CONSULT: Feeling of shortness of breath REQUESTING PROVIDER: Jm Childress MD PRIMARY CARE PHYSICIAN: Jm Childress MD Consultation requested by Dr.Jeffery Fior MD for an opinion regarding feeling of shortness of breath. My final recommendations will be communicated back to the requesting physician by way of shared Medical record or letter to requesting physician via US mail. ASSESSMENT AND PLAN Sensation of shortness of breath There is no objective evidence of lung pathology. PFTs were normal with normal DLCO Chest x-ray was normal Clinical exam was unremarkable She did not give any history of cough congestion wheezing etc. Primary symptoms of sensation of shortness of breath or inability to take deep breaths occasionally, frequent yawning. At present no further workup is required I will be happy to see her as needed SUBJECTIVE Ms. Mccray is a 39 year old female who presents for with past medical history of PFO, TIA, depression, endometriosis, GERD, genital herpes, migraine was referred to me for evaluation of sensation of shortness of breath. Patient has no prior history of asthma emphysema COPD. She used to smoke half pack of cigarettes per day for 26 years quit 8 to 9 months ago. She describes her feeling of dyspnea and sometimes I cannot take deep enough breaths. Other symptoms included frequent yawning. He states that when she has lack of sleep, has caffeine, smell of cigarettes, weather changes especially heat causes her to have sensation of inability to take deep breaths. She denies any history of wheezing or chronic cough. She had COVID in May 2021 and thinks that that had precipitated her symptoms. She never required hospitalization or any COVID-specific medications. Her workup included PFTs today in the office which were normal with normal DLCO. She had a chest x-ray in May 2021 which was normal. According to her she had another chest x-ray done at [facility] 2 weeks ago and she was told that the x-ray was normal. 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 Leg pain, bilateral 04/26/2021 PFO (patent foramen ovale) 09/26/2011 TIA (transient ischemic attack) 09/28/2012 Tobacco use disorder PAST SURGICAL HISTORY: PAST SURGICAL HISTORY Procedure Laterality Date CATH AND SALINE/CONTRAST SONOHYSTER/HYSTEROSALPI 2003 DELIVERY ONLY 03/25/06-baby C/S, low cervical 15 WEEK GESTATION BABY DELIVERY ONLY 2009 , low transverse DELIVERY ONLY 05/17/2011 , low transverse COLONOSCOPY FLX DX W/COLLJ SPEC WHEN PFRMD 12/19/2012 Colonoscopy COLONOSCOPY FLX DX W/COLLJ SPEC WHEN PFRMD 04/22/2020 Colonoscopy COLPOSCOPY CERVIX UPPER/ADJACENT VAGINA 2008 Colposcopy CONIZATION CERVIX W/WO DANDC RPR ELTRD EXC 2008 LEEP-Cervix ESOPHAGOGASTRODUODENOSC OPY TRANSORAL DIAGNOSTIC 12/19/2012 EGD ESOPHAGOGASTRODUODENOSC OPY TRANSORAL DIAGNOSTIC 04/22/2020 EGD EXT HYSTERECTOMY,W/PARTIAL VAGINECTO 05/29/2023 EXT HYSTERECTOMY,W/PARTIAL VAGINECTO 11/2023 INSERTION OF IUD 06/24/2013 LAPS ABD PRTMANDOMENTUM DX W/WO SPEC BR/WA SPX 2006 Laparoscopy X2 Endometriosis LAPS ABD PRTMANDOMENTUM DX W/WO SPEC BR/WA SPX 2008 Laparoscopy LIG/TRNSXJ FLP TUBE ABDL/VAG APPR UNI/BI 05/17/2011 Tubal ligation PAST SURGICAL HISTORY OF 2000 SCALP LESION FAMILY HISTORY: FAMILY HISTORY Problem Relation Age of Onset other (OVARIAN REMNANT SYNDROME) Mother age 52 pulmonary other (SLE) Mother Hypertension Mother Hyperlipidemia Mother Stroke Mother Heart Failure Mother COPD Mother Coronary Artery Disease Father age 58 MVA (motorcycle) Hypertension Father Hyperlipidemia Father Diabetes Father Developmental problem Sister MENTAL RETARDATION/SEXUAL ADDICTION (more content not included)... Normal [facility] LUNG DIFFUSION CAPACITY (ANN O)on 09-03-2024 DLCO (ml/min/mmHg) 21.59 ml/min/mmHg [facility] DLCO LLN (ml/min/mmHg) 17.69 ml/min/mmHg [facility] DLCO PREDICTED (ml/min/mmHg) 23.86 ml/min/mmHg [facility] DLCO ULN (ml/min/mmHg) 30.02 ml/min/mmHg [facility] DLCO/VA (ml/min/mmHg/L) 0.04 ml/m in/mmHg /L [facility] DLCO/VA PREDICTED (ml/min/mmHg/L) 0.05 ml/min/mmHg /L [facility] DLCO/VAcor (ml/min/mmHg/L) 0.04 ml/min/mmHg /L [facility] DLCOcor (ml/min/mmHg) 21.15 ml/min/mmHg [facility] DLCOcor PREDICTED (ml/min/mmHg) 23.86 ml/min/mmHg [facility] ERV PREDICTED (L) 1.16 L/S [facility] FEF25% POST (L/S) 7.4 L/S [facility] FEF25% PRE (L/S) 7.36 L[facility]S [facility] OKF73-43% LLN (L/S) 1.9 L/S [facility] XJY55-34% POST (L/S) 2.88 L/S [facility] SOL53-75% PRE (L/S) 2.48 L/S [facility] TSO86-62% PREDICTED (L/S) 3.15 L/S [facility] FEF75% LLN (L/S) 0.57 L/S [facility] FEF75% POST (L/S) 1.01 L/S [facility] FEF75% PRE (L/S0 0.76 L/S [facility] FEF75% PREDICTED (L/S) 1.2 L/S [facility] FEF75% ULN (L/S) 2.29 L/S [facility] FET POST (S) 7.62 S [facility] FET PRE (S) 8.65 S [facility] FEV1 LLN (L) 2.17 L [facility] FEV1 PRE (L) 3.14 L [facility] FEV1 PREDICTED (L) 2.87 L [facility] FEV1 ULN (L) 3.54 L [facility] FEV1/FVC LLN (%) 72 % [facility] FEV1/FVC POST (%) 79 % [facility] FEV1/FVC PRE (%) 75 % [facility] FEV1/FVC PREDICTED (%) 83 % [facility] FEV1_POST (L) 3.24 L [facility] FVC LLN (L) 2.64 L [facility] FVC POST (L) 4.11 L [facility] FVC PRE (L) 4.18 L [facility] FVC PREDICTED (L) 3.47 L [facility] FVC ULN (L) 4.32 L [facility] IC PREDICTED (L) 2.31 L/S [facility] PEF LLN (L/S) 5.28 L/S [facility] PEF POST (L/S) 8.75 L/S [facility] PEF PRE (L/S) 8.34 L/S [facility] PEF ULN (L/S) 8.73 L/S [facility] SVC LLN (L) 2.64 L/S [facility] SVC PREDICTED (L) 3.47 L/S [facility] SVC ULN (L) 4.32 L/S [facility] VA (L) 5.42 L [facility] VA PREDICTED (L) 5.12 L [facility] No Panel Informationon 09-03 [facility] Building [address] [place] [address] Test Date: 2024-09-03 Pat Name: DEANDRA MCCRAY Department: Room: Gender: F Surgical Brace Maker: : 1985 Requested By: Order Number: [id number] Reading MD: Alma Ames MD Interpretive Statements PRE: Medications and Allergies were reviewed for possible drug interactions per policy. No contraindications or sensitivities were noted. Current ATS/ERS acceptability and repeatability standards for spirometry met. Start of test and EOFE criteria met. Current ATS/ERS acceptability and repeatability standards for DLCO met with 2 acceptable maneuvers. DLCO is not hemoglobin corrected. 2 puffs Albuterol (180 mcg) delivered by MDI via holding chamber. HR pre = 72/min, HR post = 83/min. POST: Current ATS/ERS acceptability and repeatability standards for spirometry met. Start of test and EOFE criteria met. IMPRESSION: Spirometry is normal Negative bronchodilator response. The diffusion capacity is normal. Electronically Signed On 09-03-2024 13:30:30 EDT by Alma Ames MD Site: [facility] ID: [id number] Name: DEANDRA MCCRAY Visit Date: 09/03/2024 Doctor: Surgical Brace Maker: Valentín Adan Age: 39 Date of : 1985 Gender: Female Race: White Height: 64.33 in Weight: 148.81 lbs BSA: 1.732 Diagnosis: Post-acute sequelae of COVID-19 (PASC)_ Dyspnea: Cough: Wheeze: Tobacco Use: None Medications: Comments: PRE: Medications and Allergies were reviewed for possible drug interactions per policy. No contraindications or sensitivities were noted. Current ATS/ERS acceptability and repeatability standards for spirometry met. Start of test and EOFE criteria met. Current ATS/ERS acceptability and repeatability standards for DLCO met with 2 acceptable maneuvers. DLCO is not hemoglobin corrected. 2 puffs Albuterol (180 mcg) delivered by MDI via holding chamber. HR pre = 72/min, HR post = 83/min. POST: Current ATS/ERS acceptability and repeatability standards for spirometry met. Start of test and EOFE criteria met. Review Status: Not Reviewed PRE-BRONCH POST-BRONCH Pred LLN ULN Actual %Pred Actual %Chng SPIROMETRY FVC (L) 3.47 2.64 4.32 4.18 120 4.11 -1 FEV1 (L) 2.87 2.17 3.54 3.14 109 3.24 3 FEV1/FVC 0.83 0.72 0.91 0.75 90 0.79 4 FEF25 (L/sec) 7.36 7.40 0 FEF50 (L/sec) 3.82 2.21 5.43 3.33 87 3.68 10 FEF75 (L/sec) 1.20 0.57 2.29 0.76 63 1.01 33 VHL11-21 (L/sec) 3.15 1.90 4.68 2.48 78 2.88 16 FEF Max (L/sec) 7.00 5.28 8.73 8.34 119 8.75 4 FIVC (L) 3.95 3.88 -1 FIF50 (L/sec) 2.99 2.49 -16 FIF Max (L/sec) 3.43 3.30 -3 Time (sec) 8.65 7.62 -11 IRAIS (L) 0.18 0.18 0 Time To FEF Max (sec) 0.14 0.14 0 DIFFUSION DLCOunc (ml/min/mmHg) 23.86 17.69 30.02 21.59 90 DLunc/VA 0.05 0.03 0.06 0.04 84 VA (L) 5.12 4.01 6.22 5.42 105 BHT (sec) 10.81 IVC (L) 3.84 PULMONARY FUNCTION LAB [facility] .Auto Diffon 08-16-2024 Basophil, Absolute 0.1 10 3/mcL Normal 0.0-0.2 [facility] Comment on above: Performed By: #### A DIFF, GFR, CBC, ANEU, MDW, CMP, PBNP #### [address] [address] Basophils/100 WBC (Bld) 0.6 % Normal 0.0-2.5 [facility] Comment on above: Performed By: #### A DIFF, GFR, CBC, ANEU, MDW, CMP, PBNP #### [address] [address] Eosinophil, Absolute 0.1 10 3/mcL Normal 0.0-0.7 [facility] Comment on above: Performed By: #### A DIFF, GFR, CBC, ANEU, MDW, CMP, PBNP #### [address] [address] Eosinophils/100 WBC (Bld) 1.0 % Normal 0.0-7.0 [facility] Comment on above: Performed By: #### A DIFF, GFR, CBC, ANEU, MDW, CMP, PBNP #### [address] [address] Lymphocyte, Absolute 2.0 10 3/mcL Normal 0.9-4.3 [facility] Comment on above: Performed By: #### A DIFF, GFR, CBC, ANEU, MDW, CMP, PBNP #### [address] [address] Lymphocytes/100 WBC (Bld) 24.2 % Normal 20.0-40.0 [facility] Comment on above: Performed By: #### A DIFF, GFR, CBC, ANEU, MDW, CMP, PBNP #### [address] [address] Monocyte, Absolute 0.5 10 3/mcL Normal 0.1-1.4 [facility] Comment on above: Performed By: #### A DIFF, GFR, CBC, ANEU, MDW, CMP, PBNP #### [address] [address] Monocytes/100 WBC (Bld) 6.5 % Normal 2.0-13.0 [facility] Comment on above: Performed By: #### A DIFF, GFR, CBC, ANEU, MDW, CMP, PBNP #### [address] [address] Neutrophils/100 WBC (Bld) 67.7 % Normal 50.0-75.0 [facility] Comment on above: Performed By: #### A DIFF, GFR, CBC, ANEU, MDW, CMP, PBNP #### [address] [address] .GFRon 08-16-2024 Estimated Glomerular Filtration Rate 89 ml/min/1.73sqm Normal [facility] Comment on above: Result Comment: Stages of Chronic Kidney Disease (CKD) Stage Description eGFR(ml/min/1.73 sq.m.) CKD 1 Normal kidney function or >=90 normal kindney function with possible kidney damage (ex. Proteinuria) CKD 2 Kidney damage with mild loss 60-89 of kidney function CKD 3a Mild to moderate loss of kidney 45-59 function CKD 3b Moderate to severe loss of 30-44 of kindey function CKD 4 Severe loss of kidney function 15-29 CKD 5 Kidney failure <15 Note: (go live 2024) the eGFR calculation was updated to the 2020 CKD-EPI creatinine equation without a race factor to calculate the eGFR results. Performed By: #### A DIFF, GFR, CBC, ANEU, MDW, CMP, PBNP #### [address] [address] .MDWon 02-21-2025 Monocyte Distribution Width 18.32 Normal 0.00-20.00 [facility] Comment on above: Result Comment: For ED adult patients suspected of sepsis, MDW<=20.0 does not rule out sepsis or risk of sepsis Performed By: #### A DIFF, GFR, CBC, ANEU, MDW, CMP, PBNP #### [address] [address] .NEUABSon 08-16-2024 Neutrophil, Absolute 5.5 10 3/mcL Normal 2.3-8.1 [facility] Comment on above: Performed By: #### A DIFF, GFR, CBC, ANEU, MDW, CMP, PBNP #### [address] [address] BMPon 08-16-2024 BUN/Creatinine Ratio 17 ratio Normal 7-27 [facility] Comment on above: Performed By: #### A DIFF, GFR, CBC, ANEU, MDW, CMP, PBNP #### [address] [address] Calcium [Mass/Vol] 9.1 mg/dL Normal 8.4-10.2 [facility] Comment on above: Performed By: #### A DIFF, GFR, CBC, ANEU, MDW, CMP, PBNP #### [address] [address] Chloride [Moles/Vol] 107 mmol/L Normal 98-107 [facility] Comment on above: Performed By: #### A DIFF, GFR, CBC, ANEU, MDW, CMP, PBNP #### [address] [address] CO2 [Moles/Vol] 23 mmol/L Normal 22-29 [facility] Comment on above: Performed By: #### A DIFF, GFR, CBC, ANEU, MDW, CMP, PBNP #### [address] [address] Creatinine [Mass/Vol] 0.84 mg/dL Normal 0.55-1.02 [facility] Comment on above: Result Comment: Test ing performed on Siemens Dimension EXL analyzer using a modified kinetic Chaim technique. Performed By: #### A DIFF, GFR, CBC, ANEU, MDW, CMP, PBNP #### [address] [address] Electrolyte Balance 9.0 mEq/L Normal 4.0-15.0 [facility] Comment on above: Performed By: #### A DIFF, GFR, CBC, ANEU, MDW, CMP, PBNP #### [address] [address] Glucose [Mass/Vol] 96 mg/dL Normal 70-105 [facility] Comment on above: Performed By: #### A DIFF, GFR, CBC, ANEU, MDW, CMP, PBNP #### [address] [address] Potassium [Moles/Vol] 3.5 mmol/L Normal 3.5-5.1 [facility] Comment on above: Performed By: #### A DIFF, GFR, CBC, ANEU, MDW, CMP, PBNP #### [address] [address] Sodium [Moles/Vol] 139 mmol/L Normal 136-145 [facility] Comment on above: Performed By: #### A DIFF, GFR, CBC, ANEU, MDW, CMP, PBNP #### [address] [address] Urea nitrogen [Mass/Vol] 14 mg/dL Normal 7-18 [facility] Comment on above: Performed By: #### A DIFF, GFR, CBC, ANEU, MDW, CMP, PBNP #### [address] [address] CBCon 08-16-2024 Erythrocyte distribution width (RBC) [Ratio] 12.6 % Normal 11.5-15.5 [facility] Comment on above: Performed By: #### A DIFF, GFR, CBC, ANEU, MDW, CMP, PBNP #### [address] [address] Hematocrit (Bld) [Volume fraction] 40.3 % Normal 34.0-46.0 [facility] Comment on above: Performed By: #### A DIFF, GFR, CBC, ANEU, MDW, CMP, PBNP #### [address] [address] Hgb 13.5 G/dL Normal 12.0-16.0 [facility] Comment on above: Performed By: #### A DIFF, GFR, CBC, ANEU, MDW, CMP, PBNP #### [place] [address] MCH (RBC) [Entitic mass] 30.5 pg Normal 27.0-33.0 [facility] Comment on above: Performed By: #### A DIFF, GFR, CBC, ANEU, MDW, CMP, PBNP #### [place] [address] MCHC 33.4 G/dL Normal 32.0-36.0 [facility] Comment on above: Performed By: #### A DIFF, GFR, CBC, ANEU, MDW, CMP, PBNP #### [place] [address] MCV (RBC) [Entitic vol] 91.5 fL Normal 80.0-99.0 [facility] Comment on above: Performed By: #### A DIFF, GFR, CBC, ANEU, MDW, CMP, PBNP #### [address] [address] Platelet 192 10 3/mcL Normal 150-450 [facility] Comment on above: Performed By: #### A DIFF, GFR, CBC, ANEU, MDW, CMP, PBNP #### [address] [address] Platelet mean volume (Bld) [Entitic vol] 9.3 fL Normal 6.6-10.5 [facility] Comment on above: Performed By: #### A DIFF, GFR, CBC, ANEU, MDW, CMP, PBNP #### [place] [address] RBC 4.41 10 6/mcL Normal 4.10-5.30 [facility] Comment on above: Performed By: #### A DIFF, GFR, CBC, ROGELIO SIMS, KALLIE, PBNP #### [place] [address] [place], [place] [address] WBC 8.2 10 3/mcL Normal 4.5-10.8 [facility] Comment on above: Performed By: #### A DIFF, GFR, CBC, BETHANY, ROGELIO, KALLIE, PBNP #### [place] [address] [place], [place] [address] DIMERon 08-16-2024 D-Dimer 206 ng/mL D-DU Normal 0-230 [facility] Comment on above: Result Comment: DDN: Results reported in D-DU ng/mL. Negative for D-dimer. DVT/PE is highly unlikely. Note: False negative results may be seen in patients on anticoagulant therapy. The result of the D-Dimer test should be evaluated in the context of all the clinical and laboratory data available. In those instances where the laboratory result does not agree with the clinical evaluation, additional tests should be performed accordingly. If the D-Dimer result is used to exclude DVT or PE, the recommended cutoff value is less than 230 ng/mL. The D-Dimer result should not be used alone to rule in DVT/PE, but should be used in conjunction with a clinical pretest probability (PTP)assessment model to exclude venous thromboembolism (VTE) in outpatients suspected of deep venous thrombosis (DVT) and pulmonary embolism (PE). Performed By: #### A DIFF, GFR, CBC, BETHANY, ROGELIO, KALLIE, PBNP #### [place] [address] [place], [place] [address] LABORATORYOrdered By: Kaci wilkins on 08-16-2024 Appearance (U) Clear (08/16/24 4:32 PM) Normal Clear AO Auto Urine SS Bilirubin Ql (U) Negative (08/16/24 4:32 PM) Normal Negative AO Auto Urine SS Color (U) Yellow (08/16/24 4:32 PM) Normal AO Auto Urine SS Glucose Test strip (U) [Mass/Vol] Negative Normal Negative AO Auto Urine SS Hemoglobin Auto test strip (U) [Mass/Vol] Negative (08/16/24 4:32 PM) Normal Negative AO Auto Urine SS Ketones Ql (U) Negative Normal Negative AO Auto Urine SS UA Leuk Est Negative (08/16/24 4:32 PM) Normal Negative AO Auto Urine SS UA Nitrite Negative (08/16/24 4:32 PM) Normal Negative AO Auto Urine SS UA pH 6.0 (08/16/24 4:32 PM) Normal 5.0 - 8.0 AO Auto Urine SS UA Protein Negative Normal Negative AO Auto Urine SS UA Spec Grav 1.010 *ABN* (08/16/24 4:32 PM) Invalid Interpretation Code 1.015-1.025 AO Auto Urine SS UA Specimen Type Clean Catch (08/16/24 4:32 PM) Normal AO Auto Urine SS UA Urobilinogen 0.2 E.U./dL Normal 0.2-1.0 AO Auto Urine SS LABORATORYOrdered By: SYSTEM SYSTEM on 08-16-2024 Basophils (Bld) [#/Vol] 0.1 103/mcL Normal 0.0 - 0.2 10^3/mcL AO Workflow SS Basophils/100 WBC (Bld) 0.6 % Normal 0.0 - 2.5 % AO Workflow SS Calcium [Mass/Vol] 9.1 mg/dL Normal 8.4 - 10. 2 mg/dL AO ADM SS Chloride [Moles/Vol] 107 mmol/L Normal 98 - 10 7 mmol/L AO ADM SS CO2 [Moles/Vol] 23 mmol/L Normal 22 - 29 mmol/L AO ADM SS Creatinine [Mass/Vol] 0.84 mg/dL Normal 0.55 - 1.02 mg/dL AO ADM SS Comment on above: Interpretive Data: T esting performed on Siemens Dimension EXL analyzer using a modified kinetic Chaim technique. Electrolyte Balance 9.0 mEq/L Normal 4.0 - 15 .0 mEq/L AO ADM SS Eosinophil, Absolute 0.1 103/mcL Normal 0.0 - 0 .7 10^3/mcL AO Workflow SS Eosinophils/100 WBC (Bld) 1.0 % Normal 0.0 - 7.0 % AO Workflow SS Erythrocyte distribution width (RBC) [Ratio] 12.6 % Normal 11.5 - 15.5 % AO Workflow SS Estimated Glomerular Filtration Rate 89 ml/min/1.73sqm Invalid Interpretation Code AO Chemistry S Comment on above: Interpretive Data: Stages of Chronic Kidney Disease (CKD) Stage Description eGFR(ml/min/1.73 sq.m.) CKD 1 Normal kidney function or >=90 normal kindney function with possible kidney damage (ex. Proteinuria) CKD 2 Kidney damage with mild loss 60-89 of kidney function CKD 3a Mild to moderate loss of kidney 45-59 function CKD 3b Moderate to severe loss of 30-44 of kindey function CKD 4 Severe loss of kidney function 15-29 CKD 5 Kidney failure <15 Note: (go live 2024) the eGFR calculation was updated to the 2020 CKD-EPI creatinine equation without a race factor to calculate the eGFR results. Fibrin D-dimer DDU (PPP) [Mass/Vol] 206 ng/mL D-DU Normal 0 - 230 ng/mL D-DU AO [facility] SS Comment on above: Result Comment: DDN: Results reported in D-DU ng/mL. Negative for D-dimer. DVT/PE is highly unlikely. Note: False negative results may be seen in patients on anticoagulant therapy. Interpretive Data: T he result of the D-Dimer test should be evaluated in the context of all the clinical and laboratory data available. In those instances where the laboratory result does not agree with the clinical evaluation, additional tests should be performed accordingly. If the D-Dimer result is used to exclude DVT or PE, the recommended cutoff value is less than 230 ng/mL. The D-Dimer result should not be used alone to rule in DVT/PE, but should be used in conjunction with a clinical pretest probability (PTP)assessment model to exclude venous thromboembolism (VTE) in outpatients suspected of deep venous thrombosis (DVT) and pulmonary embolism (PE). Glucose [Mass/Vol] 96 mg/dL Normal 70 - 105 mg/dL AO ADM SS Hematocrit (Bld) [Volume fraction] 40.3 % Normal 34.0 - 46.0 % AO Workflow SS Hemoglobin (Bld) [Mass/Vol] 13.5 G/dL Normal 12.0 - 16.0 G/dL AO Workflow SS Lymphocytes (Bld) [#/Vol] 2.0 103/mcL Normal 0.9 - 4.3 10^3/mcL AO Workflow SS Lymphocytes/100 WBC (Bld) 24.2 % Normal 20.0 - 40.0 % AO Workflow SS MCH (RBC) [Entitic mass] 30.5 pg Normal 27.0 - 33.0 pg AO Workflow SS MCHC 33.4 G/dL Normal 32.0 - 36.0 G/dL AO Workflow SS MCV (RBC) [Entitic vol] 91.5 fL Normal 80.0 - 99.0 fL AO Workflow SS Monocyte distribution width Auto (Bld) [Entitic vol] 18.32 1 Normal 0.00 - 20.00 AO Workflow SS Comment on above: Result Comment: For ED adult patients suspected of sepsis, MDW<=20.0 does not rule out sepsis or risk of sepsis Monocytes (Bld) [#/Vol] 0.5 103/mcL Normal 0.1 - 1.4 10^3/mcL AO Workflow SS Monocytes/100 WBC (Bld) 6.5 % Normal 2.0 - 13.0 % AO Workflow SS Neutrophils (Bld) [#/Vol] 5.5 103/mcL Normal 2.3 - 8.1 10^3/mcL AO Workflow SS Neutrophils/100 WBC (Bld) 67.7 % Normal 50.0 - 75.0 % AO Workflow SS Platelet mean volume (Bld) [Entitic vol] 9.3 fL Normal 6.6 - 10.5 fL AO Workflow SS Platelets (Bld) [#/Vol] 192 103/mcL Normal 150 - 450 10^3/mcL AO Workflow SS Potassium [Moles/Vol] 3.5 mmol/L Normal 3.5 - 5.1 mmol/L AO ADM SS RBC (Bld) [#/Vol] 4.41 106/mcL Normal 4.10 - 5.3 0 10^6/mcL AO Workflow SS Sodium [Moles/Vol] 139 mmol/L Normal 136 - 145 mmol/L AO ADM SS Troponin I.cardiac DL <= 0.01 ng/mL [Mass/Vol] 7 ng/L Normal 0 - 51 ng/L AO ADM SS Comment on above: Interpretive Data: H igh Sensitive Troponin I Reference Ranges: Female: 0-51 ng/L Male: 0-76 ng/L Testing performed on Dheere Bolo using a homogeneous sandwich chemiluminescent immunoassay based on [employer] technology. Troponin I.cardiac DL <= 0.01 ng/mL [Mass/Vol] ng/L Normal 0 - 51 ng/L AO ADM SS Comment on above: Interpretive Data: H igh Sensitive Troponin I Reference Ranges: Female: 0-51 ng/L Male: 0-76 ng/L Testing performed on Dimension EXL using a homogeneous sandwich chemiluminescent immunoassay based on [employer] technology. Urea nitrogen [Mass/Vol] 14 mg/dL Normal 7 - 18 mg/dL AO ADM SS Urea nitrogen/Creatinine [Mass ratio] 17 ratio Normal 7 - 27 ratio AO ADM SS WBC (Bld) [#/Vol] 8.2 103/mcL Normal 4.5 - 10.8 10^3/mcL AO Workflow SS TROPHSon 08-16-2024 High Sensitivity Troponin I 7 ng/L Normal 0-51 [facility] Comment on above: Result Comment: High Sensitive Troponin I Reference Ranges: Female: 0-51 ng/L Male: 0-76 ng/L Testing performed on Dimension EXL using a homogeneous sandwich chemiluminescent immunoassay based on [employer] technology. Performed By: #### A DIFF, GFR, CBC, ANEU, MDW, CMP, PBNP #### [place] [address] High Sensitivity Troponin I <4 Normal 0-51 [facility] Comment on above: Result Comment: High Sensitive Troponin I Reference Ranges: Female: 0-51 ng/L Male: 0-76 ng/L Testing performed on Dimension EX using a homogeneous sandwich chemiluminescent immunoassay based on [employer]Love technology. Performed By: #### A DIFF, GFR, CBC, ANEU, MDW, CMP, PBNP #### [place] [id number] UAon 08-16-2024 Color (U) Yellow Normal [facility] Comment on above: Performed By: #### U A #### [place] [id number] Glucose (U) [Mass/Vol] Negative Normal Negative [facility] Comment on above: Performed By: #### U A #### [place] [id number] Ketones Ql (U) Negative Normal Negative [facility] Comment on above: Performed By: #### U A #### [place] [id number] UA Appear Clear Normal Clear [facility] Comment on above: Performed By: #### U A #### [address] [address] UA Blood Negative Normal Negative [facility] Comment on above: Performed By: #### U A #### [address] [address] UA Leuk Est Negative Normal Negative [facility] Comment on above: Performed By: #### U A #### [place] [address] UA Nitrite Negative Normal Negative [facility] Comment on above: Performed By: #### U A #### [place] [address] UA pH 6.0 Normal 5.0 - 8.0 [facility] Comment on above: Performed By: #### U A #### [place] [address] UA Protein Negative Normal Negative [facility] Comment on above: Performed By: #### U A #### [place] [address] UA Spec Grav 1.010 Abnormal 1.015-1.025 [facility] Comment on above: Performed By: #### U A #### [place] [address] UA Specimen Type Clean Catch Normal [facility] Comment on above: Performed By: #### U A #### [place] [address] UA Urobilinogen 0.2 E.U./dL Normal 0.2-1.0 [facility] Comment on above: Performed By: #### U A #### [place] [address] Urobilinogen (U) [Mass/Vol] Negative Normal Negative [facility] Comment on above: Performed By: #### U A #### [place] [address] XR CHEST 1 VIEWon 08-16-2024 XR CHEST 1 VIEW ORIGINAL EXAMINATION: ONE XRAY VIEW OF THE CHEST08/16/2024 4:32 pm COMPARISON: 01/31/2024 HISTORY: ORDERING SYSTEM PROVIDED HISTORY: Reason for Exam: chest pain FINDINGS: The cardiomediastinal contours are normal. Vascular structures appear within normal limits. There is no consolidation. No pleural fluid or pneumothorax. No aggressive osseous lesions identified. IMPRESSION: No acute radiographic findings. Interpreted by: Haris Cruz MD Preliminary Report By: Haris Cruz MD Electronically signed By Haris Cruz MD Dictated Date: 08/16/2024 4:35:25 PM Prelim Date: 08/16/2024 4:35:51 PM Sign Date: 08/16/2024 4:35:51 PM Ordering Provider: CLARISA SIDDIQUI [facility] 08-14-2024 [facility] Office Visit (FPWADS ) DEANDRA MCCRAY ([id number]) 1985 F Date Time Provider Department 08/14/24 11:20 AM [facility]DR[facility] USMAN During your visit today, we recorded the following information about you: Pulse Blood pressure Weight Height 82/minute 96/61 68 kg 1.626 m Jm Childress MD 08/14/2024 4:35 PM Signed CHIEF COMPLAINT Patient presents with: Shortness of Breath HISTORY OF PRESENT ILLNESS Deandra Mccray is a 39 year old female who presents here today for shortness of breath. I last saw this patient on 12/19/2023. Respiratory - Endorses shortness of breath - Feels like she is always trying to catch her breath - Started after she had Covid - Spirometry in 09/2023 normal Weight - Struggles to lose weight - Was able to lose some weight last year, has been gaining since then - Exercises regularly, has a strict diet, primarily eats chicken and rice - Last 6 Encounter Wt Readings: Date: Wt: 08/14/2024 68 kg (149 lb 14.6 oz) 04/05/2024 64.2 kg (141 lb 8.6 oz) 04/01/2024 65.7 kg (144 lb 12.8 oz) 03/25/2024 64.9 kg (143 lb) 03/19/2024 61.7 kg (136 lb) 01/04/2024 61.2 kg (134 lb 14.7 oz) Reproductive Health - Hx of hysterectomy and right oophorectomy - Had a ovarian cyst at/larger than 6 cm, right side, that burst - Went in for surgery to have it removed, states that surgeon punctured her uterus - Hemorrhaged, had to be brought back in to surgery to have hysterectomy Tobacco Use - Quit smoking 7 months ago Health Maintenance Due for Influenza Vaccine (1) Due for Anxiety Screening Due for DTaP, Tdap, Td Vaccine (1- Tdap) Due for Hep B Vaccine (1 of 3-3 dose series) Due for Mammogram Screening Due for Covid-19 Vaccine ( season) Labs reviewed. Past medical history, appointments, medications, allergies reviewed. REVIEW OF SYSTEMS General: Feels well, +weight gain, no fevers or chills. HEENT: No sinus congestion, earache, sore throat. Cardiac: No chest pain, palpitations Resp: +Shortness of breath No cough or wheeze GI: No reflux symptoms, food intolerance, bowel changes. : No urinary frequency, dysuria. MS: No pain or joint complaints. 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 General: Alert, well developed, well nourished, no distress, pleasant and cooperative. Heart: Regular rate and rhythm. Normal S1 and S2. No murmurs, rubs, or gallops. Lungs: Clear to auscultation bilaterally. No respiratory distress. No wheezes, rales, or rhonchi. Abdomen: Soft, non-tender, no distention. Extremities: Feet/ankles without edema, posterior tibial pulses full and symmetrical. Data Reviewed Latest Ref [facility] 06/14/2023 WBC 3.70 - 11.00 k/uL 7.26 RBC 3.90 - 5.20 m/uL 4.18 Hemoglobin 11.5 - 15.5 g/dL 12.9 Hematocrit 36.0 - 46.0 % 38.7 MCV 80.0 - 100.0 fL 92.6 MCH 26.0 - 34.0 pg 30.9 MCHC 30.5 - 36.0 g/dL 33.3 RDW-CV 11.5 - 15.0 % 12.1 Platelet Count 150 - 400 k/uL 190 MPV 9.0 - 12.7 fL 11.7 Neut% % 51.1 Abs Neut (ANC) 1.45 - 7.50 k/uL 3.71 Lymph% % 36.1 Abs Lymph 1.00 - 4.00 k/uL 2.62 Sevier% % 6.2 Abs Sevier <0.87 k/uL 0.45 Eosin% % 5.2 Abs Eosin <0.46 k/uL 0.38 Baso% % 1.1 Abs Baso <0.11 k/uL 0.08 Immature Gran % % 0.3 IMMATURE GRANS (ABS) <0.10 k/uL <0.03 NRBC /100 WBC 0.0 Absolute nRBC <0.01 k/uL <0.01 DTYPE Auto Protein, Total 6.3 - 8.0 g/dL 6.2 (L) Albumin 3.9 - 4.9 g/dL 4.0 Calcium 8.5 - 10.2 mg/dL 8.8 Bilirubin, Total 0.2 - 1.3 mg/dL <0.2 (L) Alkaline Phosphatase 34 - 123 U/L 65 AST 13 - 35 U/L 11 (L) ALT 7 - 38 U/L 12 Glucose 74 - 99 mg/dL 99 BUN 7 - 21 mg/dL 10 Creatinine 0.58 - 0.96 mg/dL 0.79 Sodium 136 - 144 mmol/L 140 Potassium 3.7 - 5.1 mmol/L 3.6 (L) Chloride 97 - 105 mmol/L 112 (H) CO2 22 - 30 mmol/L 21 (L) Anion Gap 9 - 18 mmol/L 7 (L) eGFR >=60 mL/min/1.73m? 98 TSH 0.270 - 4.200 mIU/L 0.927 Legend: (L) Low (H) High Assessment/Plan (R06.02) SOB (shortness of breath) (primary encounter diagnosis) (Z86.16) History of 2019 novel coronavirus disease (COVID-19) Comment: Ongoing shortness of breath. Spirometry in 2023 normal. Will obtain chest xray and check labs Plan: XR CHEST 2V FRONTAL/LAT, COMPLETE BLOOD COUNT, (more content not included)... Normal [facility] CNPNon 08-06-2024 CNPN Telephone (ADRIANO) DEANDRA MCCRAY ([id number]) 1985 F Date Time Provider Department 08/06/24 JOVON WILDER JR During your visit today, we recorded the following information about you: Rashmi Azul LPN 08/06/2024 11:27 AM Signed Jovon Wilder Jr., MD P [facility] Nurse 8-10 weeks follow up with [facility] Thank you. Dyan Almaraz 08/11/2024 2:04 PM Signed Patient is scheduled in [place] with Karen Saul 08-15-24 Allergies As of Date: 08/06/2024 Noted Allergy Reaction CODEINE 08/05/2016 8 - GI Upset PAXIL (PAROXETINE HCL) 04/24/2006 2 - Rash TYLENOL-CODEINE #3 (ACETAMINOPHEN*05/11/20 05 8 - GI Upset Date Reviewed: 08/06/2024 Reviewed by: Jovon Wilder Jr., MD - Fully Assessed Reason for Visit: Appointment [[id number]] Prescriptions as of 08/11/2024 - gabapentin (NEURONTIN) 300 mg capsule Take 2 to 3 capsules 30 minutes prior to bedtime. - rimegepant (NURTEC ODT) 75 mg disintegrating tablet Take 1 tablet by mouth once daily as needed. - melatonin 3 mg tablet Take 1 tablet at 9-10PM nightly. - omeprazole (PRILOSEC) 20 mg capsule Take 1 capsule by mouth once daily. - topiramate (TOPAMAX) 100 mg tablet take 1 tablet by mouth everyday at bedtime - albuterol HFA (PROVENTIL HFA, VENTOLIN HFA) 90 mcg/actuation inhaler INHALE 2 PUFFS BY MOUTH EVERY 6 HOURS NEEDED DIRECTED - NAPROXEN ORAL Take by mouth as needed. - ibuprofen (MOTRIN) 600 mg tablet TAKE 1 TABLET BY MOUTH EVERY 6 HOURS NEEDED FOR PAIN FOR 10 DAYS WITH FOOD/MILK FOR 10 DAYS - ondansetron (ZOFRAN) 4 mg tablet TAKE 1 TABLET BY MOUTH EVERY 6 HOURS NEEDED FOR NAUSEA/VOMITING FOR 5 DAYS Problem List As Of Date 08/06/2024 Noted Resolved RH ISOIMMUNIZAT-ANTEPART [O36.0990] 02/16/2006 12/17/2007 Lump or Mass in Breast [N63.0] 12/17/2007 12/09/2009 Mastodynia [N64.4] 12/17/2007 12/09/2009 ENDOMETRIOSIS NOS [N80.9] 12/17/2007 Dysmenorrhea [N94.6] 12/17/2007 04/14/2014 Female infertility of unspecified origin [N97.9]12/17/2007 12/05/2011 DIFFUS CYSTIC MASTOPATHY [N60.19] 01/04/2008 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0] 04/14/2014 Complex ovarian cyst [N83.299] 04/14/2014 Migraine with aura [G43.109] 07/17/2014 Tobacco abuse disorder [Z72.0] 01/13/2015 Chronic pelvic pain in female [R10.2, G89.29] 02/02/2016 Abnormal uterine bleeding [N93.9] 02/02/2016 Irritable bowel syndrome with diarrhea [K58.0] 02/02/2016 Gastroesophageal reflux disease [K21.9] 09/11/2020 Leg pain, bilateral [M79.604, M79.605] 04/26/2021 Palpitations [R00.2] 10/26/2021 Shortness of breath [R06.02] 03/25/2024 Precordial pain [R07.2] 03/25/2024 Encounter Status:Closed by DYAN ALMARAZ on 08/11/24 Normal [facility] CTPCRon 07-23-2024 C. trachomatis Interp Normal See CT Interp N [facility] Comment on above: Result Comment: C. t rachomatis DNA not detected. Specimen is presumptive negative for C. trachomatis. A negative result does not preclude C. trachomatis infection because results depend on adequate specimen collection, absence of inhibitors, and sufficient DNA to be detected. See CT Interp N Performed By: #### N GPCR1, CTPCR #### [address] [address] C.trachomatis PCR Negative Normal Negative [facility] Comment on above: Result Comment: Mole cular (PCR) assay performed on the [employer] [id number] system. Performed By: #### N GPCR1, CTPCR #### [address] [address] [place] Genital Female Normal [facility] Comment on above: Performed By: #### N GPCR1, CTPCR #### [facility] [address] [place] [id number] 07-23-2024 GC PCR Source Genital Female Normal [facility] Comment on above: Performed By: #### A DIFF, GFR, CBC, ANEU, MDW, CMP, PBNP #### [address] [place] [place], [place] [address] N. gonorrhoeae (PCR) Negative Normal Negative [facility] Comment on above: Result Comment: Mole cular (PCR) assay performed on the [employer] Patrick 4800 System. Performed By: #### A DIFF, GFR, CBC, ANEU, MDW, CMP, PBNP #### [address] [place], [place] [address] N. gonorrhoeae Interp Normal See NG Interp N [facility] Comment on above: Result Comment: N. g onorrhoeae DNA not detected. Specimen is presumptive negative for N. gonorrhoeae. A negative result does not preclude Neisseria gonorrhoeae infection because results depend on adequate specimen collection, absence of inhibitors, and sufficient DNA to be detected. See NG Interp N Performed By: #### A DIFF, GFR, CBC, ANEU, MDW, CMP, PBNP #### [address] [place], [place] [address] LABORATORYOrdered By: Lilliana Norris on 07-22-2024 C. trachomatis DNA ANNIE+probe Ql (Unsp spec) Negative 2 (07/22/24 2:34 PM) Normal Negative [facility] Comment on above: Interpretive Data: M olecular (PCR) assay performed on the [employer] Patrick 4800 system. C. trachomatis DNA ANNIE+probe Ql (Unsp spec) C. trachomatis DNA not detected. Specimen is presumptive negative forC. trachomatis.A negative result does not preclude C. trachomatis infection becauseresults depend on adequate specimen collection, absence of inhibitors,and sufficient DNA to be detected. Normal See CT Interp N AH [facility]/Sero SS N. gonorrhoeae DNA ANNIE+probe Ql (Unsp spec) Negative 1 (07/22/24 2:34 PM) Normal Negative AH [facility] Comment on above: Interpretive Data: Rustam walker (PCR) assay performed on the [employer] Patrick 4800 System. N. gonorrhoeae DNA ANNIE+probe Ql (Unsp spec) N. gonorrhoeae DNA not detected. Specimen is presumptive negative forN. gonorrhoeae. A negative result does not preclude Neisseria gonorrhoeaeinfection because results depend on adequate specimen collection, absenceof inhibitors, and sufficient DNA to be detected. Normal See NG Interp N AH [facility] Laboratory - Specimen inform ationOrdered By: Lilliana Norris on 07-22-2024 Specimen source Nom (Unsp spec) Genital Female (07/22/24 2:34 PM) Normal AH [facility] CNPNon 07-10-2024 CNPN Telephone ([facility]) DEANDRA MCCRAY ([id number]) 1985 F Date Time Provider Department 07/10/24 JM CHILDRESS During your visit today, we recorded the following information about you: Karen Colon RN 07/10/2024 11:08 AM Signed Received orthopedic visit summary from [facility], LEONIDAS Hinojosa. DOS 07/09/24 for cervical spine. Placed in PCP Jm Childress MD inbox to review. Allergies As of Date: 07/10/2024 Noted Allergy Reaction CODEINE 08/05/2016 8 - GI Upset PAXIL (PAROXETINE HCL) 04/24/2006 2 - Rash TYLENOL-CODEINE #3 (ACETAMINOPHEN*05/11/20 05 8 - GI Upset Date Reviewed: 04/05/2024 Reviewed by: Karen Saul PA-C - Fully Assessed Reason for Visit: Received Outside Medical Records [1288] Prescriptions as of 07/10/2024 - rimegepant (NURTEC ODT) 75 mg disintegrating tablet Take 1 tablet by mouth once daily as needed. - gabapentin (NEURONTIN) 300 mg capsule Take 1 capsule at 5-6PM, and 1 capsule at about 9-10PM. - melatonin 3 mg tablet Take 1 tablet at 9-10PM nightly. - omeprazole (PRILOSEC) 20 mg capsule Take 1 capsule by mouth once daily. - topiramate (TOPAMAX) 100 mg tablet take 1 tablet by mouth everyday at bedtime - albuterol HFA (PROVENTIL HFA, VENTOLIN HFA) 90 mcg/actuation inhaler INHALE 2 PUFFS BY MOUTH EVERY 6 HOURS NEEDED DIRECTED - NAPROXEN ORAL Take by mouth as needed. - ibuprofen (MOTRIN) 600 mg tablet TAKE 1 TABLET BY MOUTH EVERY 6 HOURS NEEDED FOR PAIN FOR 10 DAYS WITH FOOD/MILK FOR 10 DAYS - ondansetron (ZOFRAN) 4 mg tablet TAKE 1 TABLET BY MOUTH EVERY 6 HOURS NEEDED FOR NAUSEA/VOMITING FOR 5 DAYS Problem List As Of Date 07/10/2024 Noted Resolved RH ISOIMMUNIZAT-ANTEPART [O36.0990] 02/16/2006 12/17/2007 Lump or Mass in Breast [N63.0] 12/17/2007 12/09/2009 Mastodynia [N64.4] 12/17/2007 12/09/2009 ENDOMETRIOSIS NOS [N80.9] 12/17/2007 Dysmenorrhea [N94.6] 12/17/2007 04/14/2014 Female infertility of unspecified origin [N97.9]12/17/2007 12/05/2011 DIFFUS CYSTIC MASTOPATHY [N60.19] 01/04/2008 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0] 04/14/2014 Complex ovarian cyst [N83.299] 04/14/2014 Migraine with aura [G43.109] 07/17/2014 Tobacco abuse disorder [Z72.0] 01/13/2015 Chronic pelvic pain in female [R10.2, G89.29] 02/02/2016 Abnormal uterine bleeding [N93.9] 02/02/2016 Irritable bowel syndrome with diarrhea [K58.0] 02/02/2016 Gastroesophageal reflux disease [K21.9] 09/11/2020 Leg pain, bilateral [M79.604, M79.605] 04/26/2021 Palpitations [R00.2] 10/26/2021 Shortness of breath [R06.02] 03/25/2024 Precordial pain [R07.2] 03/25/2024 Encounter Status:Closed by KAREN COLON on 07/10/24 [facility] Cerv Spine 4 or 5 Viewson Cerv Spine 4 or 5 Views [facility] [address] [place] [address] Cerv Spine 4 or 5 Views MR#: [id number] Acct: [id number] Name: DEANDRA MCCRAY Rep #: [id number] : 1985 F 38 From: Christina Jones MD PCP: Dr. Jasbir Childress MD Status: DEP AMB Study: Cerv Spine 4 or 5 Views Date of Exam: 07/09/24 Exam# [id number] Ordering Dr: Camelia Salcido [id number] EXAM: XR CERVICAL SPINE, 4 VIEWS CLINICAL INDICATION: pain -- Ap/ Lat Flex/Ext TECHNIQUE: Frontal, lateral and flexion and extension of the cervical spine. COMPARISON: No relevant prior studies available. FINDINGS: VERTEBRAE: Straightening of the usual lordotic curvature on the neutral view. Adequate range of motion with no subluxation on flexion and extension lateral views. Preserved vertebral body height. No acute fracture. No spondylolisthesis. No significant facet arthropathy. DISC SPACES: Unremarkable. Disc spaces are maintained. SOFT TISSUES: Unremarkable. No prevertebral soft tissue widening. LUNG APICES: Clear. RAD/Cerv Spine 4 or 5 Views IMPRESSION: Straightening of the lordotic curvature on the neutral view. Adequate range of motion. Electronically Signed: Christina Jones MD at 1:41 EST , CC: LEONIDAS Hinojosa; Dr. Jasbir Childress MD Hydro Plant Site Manager: Signed Normal [facility] Orthopedic Visit Reporton Orthopedic Visit Report [facility] [address] [place] [address] [place] [address] OFFICE VISIT Date of Service: 07/09/24 MR#: [id number] Acct: [id number] Name: DEANDRA MCCRAY Rep #: [id number] : 1985 Provider: LEONIDAS Hinojosa Age/Sex: 38/F Location: [facility] Status: Signed Intake Vital Signs 04/11/23 18:27 07/09/24 15:06 Height 5 ft 4 in 5 ft 4 in Weight: 151 lb 4 oz BMI 25.9 Intake Visit Reasons: CERVICAL SPINE Allergies Bleach (Sodium Hypochlorite) Allergy (Verified 07/09/24 15:09) unknown codeine Allergy (Verified 07/09/24 15:09) unknown hydrocodone Allergy (Verified 07/09/24 15:09) unknown paroxetine (From Paxil) Allergy (Verified 07/09/24 15:09) unknown Medications ???Medication ???Instructions ???Recorded ???Confirmed ???Type rimegepant 75 mg disintegrating 75 mg PO QDAY PRN 07/09/24 07/09/24 History tablet (Nurtec ODT) topiramate 100 mg tablet 100 mg PO QDAY 07/09/24 07/09/24 History PFSH Medical History Hypotension HPV (human papilloma virus) infection Nicotine dependence History of TIA (transient ischemic attack) Depression Endometriosis Herpes Carcinoma in situ of cervix uteri IBS (irritable bowel syndrome) GERD (gastroesophageal reflux disease) Patent foramen ovale Migraines History of tobacco use Surgical History History of colonoscopy History of History of tubal ligation Family History Grandfather Heart disease Diabetes CVA (cerebral vascular accident) Grandmother Heart disease Diabetes Mother SLE (systemic lupus erythematosus) Social History Smoking Status: Current every day smoker tobacco type: cigarettes HPI CERVICAL SPINE Details: This documentation accurately reflects the service provided and the decisions made by me, LEONIDAS Hinojosa 07/09/24 2557. Part of today???s visit was documented by Vidhya SO, acting as scribe. DEANDRA MCCRAY is a 38 year old F here today NEW patient for neck pain. She did bring a disc with an MRI from [facility]. She has been having the neck pain for a few years. She states that her neck pain is on the left side along with pain radiating down the left arm with numbness and tingling. Describes this numbness and tingling down the entire left arm into her hand and fingers. This pain also extends down to her left armpit to her chest. Says that the pain makes her short of breath. No right-sided symptoms. She does get headaches and was getting them daily but now now been put on Topamate and nurtec for the headaches. She sees Dr. Wilder at the [facility] neurology for sleep issues. She does believe that she has some balance issues due to the neck. She denies physical therapy and injections. She states that about 3 months she was sitting on the couch and got a sharp pain from the base of her skull down her left side, she then laid down and was unable to sit up. She then saw a chiropractor for a few days which did help some. She states that she did have a fall yesterday when she slipped on some ice and fell on her right side but it affected her left side with pain. Says that she has had increased balance issues over the last 3 months with her tripping and falling. She also reports dexterity issues in her left hand and has had issues dropping cups out of her hand. Ortho Exam General General: Yes no acute distress Neurologic: Yes alert and Yes oriented x3 Spine SPINE TESTING CERVICAL THORACIC LUMBAR Musculoskeletal Strength 0=absent - 5=normal Details: Neurological exam of the upper extremities shows 5x5 power. Decreased sensation of the left hand. Brisk knee reflexes. Midline tenderness and left paraspinal tenderness. Silas's was subtly positive on the left. Romberg's positive. Single leg stand shows poor balance on the left normal balance on the right. Coding Level of Care Code Off vis,new,level 4 Diagnoses Cervical radiculopathy M54.12 Assessment and Plan Assessment and Plan (1) Cervical radiculopathy: Status: Acute Orders: Orders Cerv Spine 4 or 5 Views Today M54.2 - Cervicalgia Referrals Pain Management M54.12 - Radiculopathy, cervical region Physical Therapy Referral M54.12 - Radiculopathy, cervical region Plan Obtained and reviewed cervical x-rays today with the patient. Reviewed prior MRI from April 2024. Cervical MRI shows a mild disc bulge at C5-6 with mild to moderate canal narrowing. X-rays show loss of normal cervical lordosis, and a retrolisthesis of C5-6. Explained imaging findings in detail. At this time patient wishes to exhaust nonsurgical options. Recommended physical therapy to increase extenso (more content not included)... Normal [facility] 06-27-2024 [facility] Telephone (4CQ) DEANDRA MCCRAY ([id number]) 1985 F Date Time Provider Department 06/27/24 JM CHILDRESS 4CQ During your visit today, we recorded the following information about you: Eliza Conley 06/27/2024 11:28 AM Signed Pt would MRI from 05/11 be placed on disc for her appt on 06/07. Please advise and call pt when ready. Thank you Allergies As of Date: 06/27/2024 Noted Allergy Reaction CODEINE 08/05/2016 8 - GI Upset PAXIL (PAROXETINE HCL) 04/24/2006 2 - Rash TYLENOL-CODEINE #3 (ACETAMINOPHEN*05/11/20 05 8 - GI Upset Date Reviewed: 04/05/2024 Reviewed by: Karen Saul PA-C - Fully Assessed Prescriptions as of 07/25/2024 - rimegepant (NURTEC ODT) 75 mg disintegrating tablet Take 1 tablet by mouth once daily as needed. - gabapentin (NEURONTIN) 300 mg capsule Take 1 capsule at 5-6PM, and 1 capsule at about 9-10PM. - melatonin 3 mg tablet Take 1 tablet at 9-10PM nightly. - omeprazole (PRILOSEC) 20 mg capsule Take 1 capsule by mouth once daily. - topiramate (TOPAMAX) 100 mg tablet take 1 tablet by mouth everyday at bedtime - albuterol HFA (PROVENTIL HFA, VENTOLIN HFA) 90 mcg/actuation inhaler INHALE 2 PUFFS BY MOUTH EVERY 6 HOURS NEEDED DIRECTED - NAPROXEN ORAL Take by mouth as needed. - ibuprofen (MOTRIN) 600 mg tablet TAKE 1 TABLET BY MOUTH EVERY 6 HOURS NEEDED FOR PAIN FOR 10 DAYS WITH FOOD/MILK FOR 10 DAYS - ondansetron (ZOFRAN) 4 mg tablet TAKE 1 TABLET BY MOUTH EVERY 6 HOURS NEEDED FOR NAUSEA/VOMITING FOR 5 DAYS Problem List As Of Date 06/27/2024 Noted Resolved RH ISOIMMUNIZAT-ANTEPART [O36.0990] 02/16/2006 12/17/2007 Lump or Mass in Breast [N63.0] 12/17/2007 12/09/2009 Mastodynia [N64.4] 12/17/2007 12/09/2009 ENDOMETRIOSIS NOS [N80.9] 12/17/2007 Dysmenorrhea [N94.6] 12/17/2007 04/14/2014 Female infertility of unspecified origin [N97.9]12/17/2007 12/05/2011 DIFFUS CYSTIC MASTOPATHY [N60.19] 01/04/2008 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0] 04/14/2014 Complex ovarian cyst [N83.299] 04/14/2014 Migraine with aura [G43.109] 07/17/2014 Tobacco abuse disorder [Z72.0] 01/13/2015 Chronic pelvic pain in female [R10.2, G89.29] 02/02/2016 Abnormal uterine bleeding [N93.9] 02/02/2016 Irritable bowel syndrome with diarrhea [K58.0] 02/02/2016 Gastroesophageal reflux disease [K21.9] 09/11/2020 Leg pain, bilateral [M79.604, M79.605] 04/26/2021 Palpitations [R00.2] 10/26/2021 Shortness of breath [R06.02] 03/25/2024 Precordial pain [R07.2] 03/25/2024 Encounter Status:Closed by ELIZA CONLEY on 07/25/24 [facility] 06-14-2024 CNPN Telephone ([facility]) DEANDRA MCCRAY ([id number]) 1985 F Date Time Provider Department 06/14/24 KAREN SAUL [facility] During your visit today, we recorded the following information about you: Karen Colon RN 06/14/2024 2:41 PM Signed Received tilt table result from [facility] 06/11/24. Placed in CYNTHIA Diaz inbox to review. Karen Colon RN Allergies As of Date: 06/14/2024 Noted Allergy Reaction CODEINE 08/05/2016 8 - GI Upset PAXIL (PAROXETINE HCL) 04/24/2006 2 - Rash TYLENOL-CODEINE #3 (ACETAMINOPHEN*05/11/20 05 8 - GI Upset Date Reviewed: 04/05/2024 Reviewed by: Karen Saul PA-C - Fully Assessed Reason for Visit: Results [95] Cmt: Tilt table Prescriptions as of 06/14/2024 - rimegepant (NURTEC ODT) 75 mg disintegrating tablet Take 1 tablet by mouth once daily as needed. - gabapentin (NEURONTIN) 300 mg capsule Take 1 capsule at 5-6PM, and 1 capsule at about 9-10PM. - melatonin 3 mg tablet Take 1 tablet at 9-10PM nightly. - omeprazole (PRILOSEC) 20 mg capsule Take 1 capsule by mouth once daily. - topiramate (TOPAMAX) 100 mg tablet take 1 tablet by mouth everyday at bedtime - albuterol HFA (PROVENTIL HFA, VENTOLIN HFA) 90 mcg/actuation inhaler INHALE 2 PUFFS BY MOUTH EVERY 6 HOURS NEEDED DIRECTED - NAPROXEN ORAL Take by mouth as needed. - ibuprofen (MOTRIN) 600 mg tablet TAKE 1 TABLET BY MOUTH EVERY 6 HOURS NEEDED FOR PAIN FOR 10 DAYS WITH FOOD/MILK FOR 10 DAYS - ondansetron (ZOFRAN) 4 mg tablet TAKE 1 TABLET BY MOUTH EVERY 6 HOURS NEEDED FOR NAUSEA/VOMITING FOR 5 DAYS Problem List As Of Date 06/14/2024 Noted Resolved RH ISOIMMUNIZAT-ANTEPART [O36.0990] 02/16/2006 12/17/2007 Lump or Mass in Breast [N63.0] 12/17/2007 12/09/2009 Mastodynia [N64.4] 12/17/2007 12/09/2009 ENDOMETRIOSIS NOS [N80.9] 12/17/2007 Dysmenorrhea [N94.6] 12/17/2007 04/14/2014 Female infertility of unspecified origin [N97.9]12/17/2007 12/05/2011 DIFFUS CYSTIC MASTOPATHY [N60.19] 01/04/2008 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0] 04/14/2014 Complex ovarian cyst [N83.299] 04/14/2014 Migraine with aura [G43.109] 07/17/2014 Tobacco abuse disorder [Z72.0] 01/13/2015 Chronic pelvic pain in female [R10.2, G89.29] 02/02/2016 Abnormal uterine bleeding [N93.9] 02/02/2016 Irritable bowel syndrome with diarrhea [K58.0] 02/02/2016 Gastroesophageal reflux disease [K21.9] 09/11/2020 Leg pain, bilateral [M79.604, M79.605] 04/26/2021 Palpitations [R00.2] 10/26/2021 Shortness of breath [R06.02] 03/25/2024 Precordial pain [R07.2] 03/25/2024 Encounter Status:Closed by KAREN COLON on 06/14/24 Normal [facility] Tilt Tableon 06-11-2024 Tilt Table [facility] [address] [place] [address] 06/11/24 1807 MR#: [id number] Acct: [id number] Name: DEANDRA MCCRAY Rep #: [id number] : 1985 38 From: Gerard Robles MD Attending Dr: LEONIDAS DIAZ Status: REG C Ordering Dr: KAREN SAUL Date: 06/11/24 Location: [facility] Sex: F C Admitted: ADDENDUM by Dr. Gerard Robles MD on 06/12/24 at 0738 Conclusion: Negative head upright tilt table test. 06/12/24 0738 Date Gerard Robles MD cc: Dr. Jasbir Childress MD; LEONIDAS DIAZ * Signed Staff Staff: Cate Roberto and Lashanda Garcia Summary Pre Test Resting HR: 92 Pre Test Resting BP: 107/69 Minimum Test HR: 80 Maximum Test HR: 93 Minimum Test BP: 99/69 Maximum Test BP: 110/60 Reason for Test Termination: Reached Maximum Test Time Physician Tilt Table Report Patient's Physicians Primary Care Physician: Jasbir Childress Indications/Diagnosis: Dizziness. Procedure Comments: Patient was brought to the noninvasive lab in the postabsorptive nonsedated state. Informed consent was obtained. Initial heart rate and blood pressure was noted to be 68 bpm and a blood pressure of 100/56 mmHg. The patient was then placed in the 70 degree head upright tilt position after EKG and blood pressures were obtained. The patient was maintained in this position for 30 minutes. Continuous EKG monitoring was performed and heart rate was monitored. There were no changes noted in the EKG, heart rate, or blood pressure. The patient was then placed back in the recumbent position and recovered. No significant symptomatology was noted other than mild lightheadedness on initial placement in the 70 degree head upright tilt position. This rapidly resolved Summary: Head upright tilt table test. 06/11/241809 Date Gerard Robles MD CC: Dr. Jasbir Childress MD; LEONIDAS DIAZ Date Dictated: 06/11/241806 Date Transcribed: 06/11/241806 Hydro Plant Site Manager: [place] Signed [facility] .Auto Diffon 06-07-2024 Basophil, Absolute 0.1 10 3/mcL Normal 0.0-0.2 [facility] Comment on above: Performed By: #### A DIFF, GFR, CBC, ANEU, MDW, CMP, PBNP #### [address] [address] Basophils/100 WBC (Bld) 0.9 % Normal 0.0-2.5 [facility] Comment on above: Performed By: #### A DIFF, GFR, CBC, ANEU, MDW, CMP, PBNP #### [address] [address] Eosinophil, Absolute 0.2 10 3/mcL Normal 0.0-0.7 [facility] Comment on above: Performed By: #### A DIFF, GFR, CBC, ANEU, MDW, CMP, PBNP #### [address] [address] Eosinophils/100 WBC (Bld) 2.6 % Normal 0.0-7.0 [facility] Comment on above: Performed By: #### A DIFF, GFR, CBC, ANEU, MDW, CMP, PBNP #### [address] [address] Lymphocyte, Absolute 2.5 10 3/mcL Normal 0.9-4.3 [facility] Comment on above: Performed By: #### A DIFF, GFR, CBC, ANEU, MDW, CMP, PBNP #### [address] [address] Lymphocytes/100 WBC (Bld) 32.9 % Normal 20.0-40.0 [facility] Comment on above: Performed By: #### A DIFF, GFR, CBC, ANEU, MDW, CMP, PBNP #### [address] [address] Monocyte, Absolute 0.6 10 3/mcL Normal 0.1-1.4 [facility] Comment on above: Performed By: #### A DIFF, GFR, CBC, ANEU, MDW, CMP, PBNP #### [address] [address] Monocytes/100 WBC (Bld) 7.6 % Normal 2.0-13.0 [facility] Comment on above: Performed By: #### A DIFF, GFR, CBC, ANEU, MDW, CMP, PBNP #### [address] [address] Neutrophils/100 WBC (Bld) 56.0 % Normal 50.0-75.0 [facility] Comment on above: Performed By: #### A DIFF, GFR, CBC, ANEU, MDW, CMP, PBNP #### [address] [address] .GFRon 06-07-2024 GFR 86 ml/min/1.73sqm Normal [facility] Comment on above: Result Comment: GFR Population mean for , Non- Americans Ages 20-29 = 116 mL/min/1.73 sq.m. Ages 30-39 = 107 mL/min/1.73 sq.m. Ages 40-49 = 99 mL/min/1.73 sq.m. Ages 50-59 = 93 mL/min/1.73 sq.m. Ages 60-69 = 85 mL/min/1.73 sq.m. Ages 70+ = 75 mL/min/1.73 sq.m. Chronic Kidney Disease: Less than 60 mL/min/1.73 square meters End Stage Renal Disease: Less than 15 mL/min/1.73 square meters Performed By: #### A DIFF, GFR, CBC, ANEU, MDW, CMP, PBNP #### [address] [address] GFR Non- 71 ml/min/1.73sqm Normal [facility] Comment on above: Result Comment: GFR Population mean for , Non- Americans Ages 20-29 = 116 mL/min/1.73 sq.m. Ages 30-39 = 107 mL/min/1.73 sq.m. Ages 40-49 = 99 mL/min/1.73 sq.m. Ages 50-59 = 93 mL/min/1.73 sq.m. Ages 60-69 = 85 mL/min/1.73 sq.m. Ages 70+ = 75 mL/min/1.73 sq.m. Chronic Kidney Disease: Less than 60 mL/min/1.73 square meters End Stage Renal Disease: Less than 15 mL/min/1.73 square meters Performed By: #### A DIFF, GFR, CBC, ANEU, MDW, CMP, PBNP #### [address] [address] .NEUABSon 06-07-2024 Neutrophil, Absolute 4.3 10 3/mcL Normal 2.3-8.1 [facility] Comment on above: Performed By: #### A DIFF, GFR, CBC, ANEU, MDW, CMP, PBNP #### [address] [address] CBCon 06-07-2024 Erythrocyte distribution width (RBC) [Ratio] 12.5 % Normal 11.5-15.5 [facility] Comment on above: Performed By: #### A DIFF, GFR, CBC, ANEU, MDW, CMP, PBNP #### [address] [address] Hematocrit (Bld) [Volume fraction] 40.9 % Normal 34.0-46.0 [facility] Comment on above: Performed By: #### A DIFF, GFR, CBC, ANEU, MDW, CMP, PBNP #### [address] [address] Hgb 13.9 G/dL Normal 12.0-16.0 [facility] Comment on above: Performed By: #### A DIFF, GFR, CBC, ANEU, MDW, CMP, PBNP #### [address] [address] MCH (RBC) [Entitic mass] 31.1 pg Normal 27.0-33.0 [facility] Comment on above: Performed By: #### A DIFF, GFR, CBC, ANEU, MDW, CMP, PBNP #### [place] [address] MCHC 33.9 G/dL Normal 32.0-36.0 [facility] Comment on above: Performed By: #### A DIFF, GFR, CBC, ANEU, MDW, CMP, PBNP #### [address] [address] MCV (RBC) [Entitic vol] 91.6 fL Normal 80.0-99.0 [facility] Comment on above: Performed By: #### A DIFF, GFR, CBC, ANEU, MDW, CMP, PBNP #### [address] [address] Platelet 207 10 3/mcL Normal 150-450 [facility] Comment on above: Performed By: #### A DIFF, GFR, CBC, ANEU, MDW, CMP, PBNP #### [address] [address] Platelet mean volume (Bld) [Entitic vol] 9.5 fL Normal 6.6-10.5 [facility] Comment on above: Performed By: #### A DIFF, GFR, CBC, ANEU, MDW, CMP, PBNP #### [address] [address] RBC 4.46 10 6/mcL Normal 4.10-5.30 [facility] Comment on above: Performed By: #### A DIFF, GFR, CBC, ANEU, MDW, CMP, PBNP #### [address] [address] WBC 7.6 10 3/mcL Normal 4.5-10.8 [facility] Comment on above: Performed By: #### A DIFF, GFR, CBC, ANEU, MDW, CMP, PBNP #### [address] [address] CMPon 06-07-2024 Albumin Level 3.8 G/dL Normal 3.5-5.0 [facility] Comment on above: Performed By: #### A DIFF, GFR, CBC, ANEU, MDW, CMP, PBNP #### [address] [address] Albumin/Globulin [Mass ratio] 1.3 {ratio} Normal 1.1-2.5 [facility] Comment on above: Performed By: #### A DIFF, GFR, CBC, ANEU, MDW, CMP, PBNP #### [address] [address] ALP [Catalytic activity/Vol] 64 U/L Normal 40-135 [facility] Comment on above: Performed By: #### A DIFF, GFR, CBC, ANEU, MDW, CMP, PBNP #### [address] [address] ALT [Catalytic activity/Vol] 33 U/L Normal 14-59 [facility] Comment on above: Performed By: #### A DIFF, GFR, CBC, ANEU, MDW, CMP, PBNP #### [address] [address] AST [Catalytic activity/Vol] 16 U/L Normal 10-40 [facility] Comment on above: Performed By: #### A DIFF, GFR, CBC, ANEU, MDW, CMP, PBNP #### [address] [address] Bili Total 0.2 mg/dL Normal 0.2-1.0 [facility] Comment on above: Result Comment: Use of this assay is not recommended for patients undergoing treatment with eltrombopag due to the potential for falsely elevated results. Performed By: #### A DIFF, GFR, CBC, ANEU, MDW, CMP, PBNP #### [address] [address] BUN/Creatinine Ratio 16 ratio Normal 7-27 [facility] Comment on above: Performed By: #### A DIFF, GFR, CBC, ANEU, MDW, CMP, PBNP #### [place] [address] Calcium [Mass/Vol] 9.1 mg/dL Normal 8.4-10.2 [facility] Comment on above: Performed By: #### A DIFF, GFR, CBC, ANEU, MDW, CMP, PBNP #### [place] [address] Chloride [Moles/Vol] 105 mmol/L Normal 98-107 [facility] Comment on above: Performed By: #### A DIFF, GFR, CBC, ANEU, MDW, CMP, PBNP #### [place] [address] CO2 [Moles/Vol] 25 mmol/L Normal 22-29 [facility] Comment on above: Performed By: #### A DIFF, GFR, CBC, ANEU, MDW, CMP, PBNP #### [place] [address] Creatinine [Mass/Vol] 0.88 mg/dL Normal 0.55-1.02 [facility] Comment on above: Result Comment: Test ing performed on Siemens Dimension EXL analyzer using a modified kinetic Chaim technique. Performed By: #### A DIFF, GFR, CBC, ANEU, MDW, CMP, PBNP #### [address] [address] Electrolyte Balance 11.0 mEq/L Normal 4.0-15.0 [facility] Comment on above: Performed By: #### A DIFF, GFR, CBC, ANEU, MDW, CMP, PBNP #### [address] [address] Globulin 2.9 G/dL Normal [facility] Comment on above: Performed By: #### A DIFF, GFR, CBC, ANEU, MDW, CMP, PBNP #### [address] [address] Glucose [Mass/Vol] 73 mg/dL Normal 70-105 [facility] Comment on above: Performed By: #### A DIFF, GFR, CBC, ANEU, MDW, CMP, PBNP #### [address] [address] Potassium [Moles/Vol] 4.0 mmol/L Normal 3.5-5.1 [facility] Comment on above: Performed By: #### A DIFF, GFR, CBC, ANEU, MDW, CMP, PBNP #### [address] [address] Sodium [Moles/Vol] 141 mmol/L Normal 136-145 [facility] Comment on above: Performed By: #### A DIFF, GFR, CBC, ANEU, MDW, CMP, PBNP #### [address] [address] Total Protein 6.7 G/dL Normal 6.4-8.2 [facility] Comment on above: Performed By: #### A DIFF, GFR, CBC, ANEU, MDW, CMP, PBNP #### [address] [address] Urea nitrogen [Mass/Vol] 14 mg/dL Normal 7-18 [facility] Comment on above: Performed By: #### A DIFF, GFR, CBC, ANEU, MDW, CMP, PBNP #### [address] [address] Rashid 06-07-2024 [facility] Telephone (ADRIANO) MAHENDRADEANDRA M ([id number]) 1985 F Date Time Provider Department 06/07/24 KAREN SAUL During your visit today, we recorded the following information about you: Pravin Merritt RN 06/07/2024 3:27 PM Signed [facility] calls to request recent lab orders from Karen Saul be faxed to them as patient is there to have labs done now. Faxed to [phone] per request. Confirmation received that fax went through. Pravin Merritt RN Allergies As of Date: 06/07/2024 Noted Allergy Reaction CODEINE 08/05/2016 8 - GI Upset PAXIL (PAROXETINE HCL) 04/24/2006 2 - Rash TYLENOL-CODEINE #3 (ACETAMINOPHEN*05/11/20 05 8 - GI Upset Date Reviewed: 04/05/2024 Reviewed by: Karen Saul PA-C - Fully Assessed Prescriptions as of 06/07/2024 - rimegepant (NURTEC ODT) 75 mg disintegrating tablet Take 1 tablet by mouth once daily as needed. - gabapentin (NEURONTIN) 300 mg capsule Take 1 capsule at 5-6PM, and 1 capsule at about 9-10PM. - melatonin 3 mg tablet Take 1 tablet at 9-10PM nightly. - omeprazole (PRILOSEC) 20 mg capsule Take 1 capsule by mouth once daily. - topiramate (TOPAMAX) 100 mg tablet take 1 tablet by mouth everyday at bedtime - albuterol HFA (PROVENTIL HFA, VENTOLIN HFA) 90 mcg/actuation inhaler INHALE 2 PUFFS BY MOUTH EVERY 6 HOURS NEEDED DIRECTED - NAPROXEN ORAL Take by mouth as needed. - ibuprofen (MOTRIN) 600 mg tablet TAKE 1 TABLET BY MOUTH EVERY 6 HOURS NEEDED FOR PAIN FOR 10 DAYS WITH FOOD/MILK FOR 10 DAYS - ondansetron (ZOFRAN) 4 mg tablet TAKE 1 TABLET BY MOUTH EVERY 6 HOURS NEEDED FOR NAUSEA/VOMITING FOR 5 DAYS Problem List As Of Date 06/07/2024 Noted Resolved RH ISOIMMUNIZAT-ANTEPART [O36.0990] 02/16/2006 12/17/2007 Lump or Mass in Breast [N63.0] 12/17/2007 12/09/2009 Mastodynia [N64.4] 12/17/2007 12/09/2009 ENDOMETRIOSIS NOS [N80.9] 12/17/2007 Dysmenorrhea [N94.6] 12/17/2007 04/14/2014 Female infertility of unspecified origin [N97.9]12/17/2007 12/05/2011 DIFFUS CYSTIC MASTOPATHY [N60.19] 01/04/2008 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0] 04/14/2014 Complex ovarian cyst [N83.299] 04/14/2014 Migraine with aura [G43.109] 07/17/2014 Tobacco abuse disorder [Z72.0] 01/13/2015 Chronic pelvic pain in female [R10.2, G89.29] 02/02/2016 Abnormal uterine bleeding [N93.9] 02/02/2016 Irritable bowel syndrome with diarrhea [K58.0] 02/02/2016 Gastroesophageal reflux disease [K21.9] 09/11/2020 Leg pain, bilateral [M79.604, M79.605] 04/26/2021 Palpitations [R00.2] 10/26/2021 Shortness of breath [R06.02] 03/25/2024 Precordial pain [R07.2] 03/25/2024 Encounter Status:Closed by PRAVIN MERRITT on 06/07/24 Normal [facility] HCGQon 06-07-2024 hCG, quantitative <1.0 Normal [facility] Comment on above: Result Comment: HCG Levels with Gestation age: 0.2- 1 week. . . . . . . . . . . . . . . 5 - 50 mIU/mL 1-2 weeks . . . . . . . . . . . . . . . 50 - 500 mIU/mL 2-3 weeks . . . . . . . . . . . . . . . 100 - 5,000 mIU/ml 3-4 weeks . . . . . . . . . . . . . . . 500 - 10,000 mIU/mL 4-5 weeks . . . . . . . . . . . . . . . 1,000 - 5,000 mIU/mL 5-6 weeks . . . . . . . . . . . . . . . 10,000 - 100,000 mIU/mL 6-8 weeks . . . . . . . . . . . . . . . 15,000 - 200,000 mIU/mL 2-3 months . . . . . . . . . . . . . . . 10,000 - 100,000 mIU/mL Performed By: #### A DIFF, GFR, CBC, ANEU, MDW, CMP, PBNP #### [address] [address] LABORATORYOrdered By: SYSTEM SYSTEM on 06-07-2024 Albumin BCP dye [Mass/Vol] 3.8 G/dL Normal 3.5 - 5.0 G/dL AO ADM SS Albumin/Globulin [Mass ratio] 1.3 {ratio} Normal 1.1 - 2.5 ratio AO ADM SS ALP [Catalytic activity/Vol] 64 U/L Normal 40 - 135 U/L AO ADM SS ALT With P-5'-P [Catalytic activity/Vol] 33 U/L Normal 14 - 59 U/L AO ADM SS AST With P-5'-P [Catalytic activity/Vol] 16 U/L Normal 10 - 40 U/L AO ADM SS Basophils (Bld) [#/Vol] 0.1 103/mcL Normal 0.0 - 0.2 10^3/mcL AO Workflow SS Basophils/100 WBC (Bld) 0.9 % Normal 0.0 - 2.5 % AO Workflow SS Bilirubin [Mass/Vol] 0.2 mg/dL Normal 0.2 - 1 .0 mg/dL AO ADM SS Comment on above: Interpretive Data: U se of this assay is not recommended for patients undergoing treatment with eltrombopag due to the potential for falsely elevated results. Calcium [Mass/Vol] 9.1 mg/dL Normal 8.4 - 10. 2 mg/dL AO ADM SS Chloride [Moles/Vol] 105 mmol/L Normal 98 - 10 7 mmol/L AO ADM SS CO2 [Moles/Vol] 25 mmol/L Normal 22 - 29 mmol/L AO ADM SS Creatinine [Mass/Vol] 0.88 mg/dL Normal 0.55 - 1.02 mg/dL AO ADM SS Comment on above: Interpretive Data: T esting performed on Siemens Dimension EXL analyzer using a modified kinetic Chaim technique. Electrolyte Balance 11.0 mEq/L Normal 4.0 - 15 .0 mEq/L AO ADM SS Eosinophil, Absolute 0.2 103/mcL Normal 0.0 - 0 .7 10^3/mcL AO Workflow SS Eosinophils/100 WBC (Bld) 2.6 % Normal 0.0 - 7.0 % AO Workflow SS Erythrocyte distribution width (RBC) [Ratio] 12.5 % Normal 11.5 - 15.5 % AO Workflow SS GFR/1.73 sq M.predicted among blacks MDRD (S/P/Bld) [Vol rate/Area] 86 ml/min/1.73sqm Invalid Interpretation Code AO Chemistry S Comment on above: Interpretive Data: GFR Population mean for , Non- Americans Ages 20-29 = 116 mL/min/1.73 sq.m. Ages 30-39 = 107 mL/min/1.73 sq.m. Ages 40-49 = 99 mL/min/1.73 sq.m. Ages 50-59 = 93 mL/min/1.73 sq.m. Ages 60-69 = 85 mL/min/1.73 sq.m. Ages 70+ = 75 mL/min/1.73 sq.m. Chronic Kidney Disease: Less than 60 mL/min/1.73 square meters End Stage Renal Disease: Less than 15 mL/min/1.73 square meters GFR/1.73 sq M.predicted among non-blacks MDRD (S/P/Bld) [Vol rate/Area] 71 ml/min/1.73sqm Invalid Interpretation Code LAYA Chemistry S Comment on above: Interpretive Data: GFR Population mean for , Non- Americans Ages 20-29 = 116 mL/min/1.73 sq.m. Ages 30-39 = 107 mL/min/1.73 sq.m. Ages 40-49 = 99 mL/min/1.73 sq.m. Ages 50-59 = 93 mL/min/1.73 sq.m. Ages 60-69 = 85 mL/min/1.73 sq.m. Ages 70+ = 75 mL/min/1.73 sq.m. Chronic Kidney Disease: Less than 60 mL/min/1.73 square meters End Stage Renal Disease: Less than 15 mL/min/1.73 square meters Globulin 2.9 G/dL Invalid Interpretation Code AO ADM SS Glucose [Mass/Vol] 73 mg/dL Normal 70 - 105 mg/dL AO ADM SS HCG Qn mIU/mL Invalid Interpretation Code AO ADM SS Comment on above: Interpretive Data: H CG Levels with Gestation age: 0.2- 1 week. . . . . . . . . . . . . . . 5 - 50 mIU/mL 1-2 weeks . . . . . . . . . . . . . . . 50 - 500 mIU/mL 2-3 weeks . . . . . . . . . . . . . . . 100 - 5,000 mIU/ml 3-4 weeks . . . . . . . . . . . . . . . 500 - 10,000 mIU/mL 4-5 weeks . . . . . . . . . . . . . . . 1,000 - 5,000 mIU/mL 5-6 weeks . . . . . . . . . . . . . . . 10,000 - 100,000 mIU/mL 6-8 weeks . . . . . . . . . . . . . . . 15,000 - 200,000 mIU/mL 2-3 months . . . . . . . . . . . . . . . 10,000 - 100,000 mIU/mL Hematocrit (Bld) [Volume fraction] 40.9 % Normal 34.0 - 46.0 % AO Workflow SS Hemoglobin (Bld) [Mass/Vol] 13.9 G/dL Normal 12.0 - 16.0 G/dL AO Workflow SS Lymphocytes (Bld) [#/Vol] 2.5 103/mcL Normal 0.9 - 4.3 10^3/mcL AO Workflow SS Lymphocytes/100 WBC (Bld) 32.9 % Normal 20.0 - 40.0 % AO Workflow SS MCH (RBC) [Entitic mass] 31.1 pg Normal 27.0 - 33.0 pg AO Workflow SS MCHC 33.9 G/dL Normal 32.0 - 36.0 G/dL AO Workflow SS MCV (RBC) [Entitic vol] 91.6 fL Normal 80.0 - 99.0 fL AO Workflow SS Monocytes (Bld) [#/Vol] 0.6 103/mcL Normal 0.1 - 1.4 10^3/mcL AO Workflow SS Monocytes/100 WBC (Bld) 7.6 % Normal 2.0 - 13.0 % AO Workflow SS Neutrophils (Bld) [#/Vol] 4.3 103/mcL Normal 2.3 - 8.1 10^3/mcL AO Workflow SS Neutrophils/100 WBC (Bld) 56.0 % Normal 50.0 - 75.0 % AO Workflow SS Platelet mean volume (Bld) [Entitic vol] 9.5 fL Normal 6.6 - 10.5 fL AO Workflow SS Platelets (Bld) [#/Vol] 207 103/mcL Normal 150 - 450 10^3/mcL AO Workflow SS Potassium [Moles/Vol] 4.0 mmol/L Normal 3.5 - 5.1 mmol/L AO ADM SS Protein [Mass/Vol] 6.7 G/dL Normal 6.4 - 8.2 G/dL AO ADM SS RBC (Bld) [#/Vol] 4.46 106/mcL Normal 4.10 - 5.3 0 10^6/mcL AO Workflow SS Sodium [Moles/Vol] 141 mmol/L Normal 136 - 145 mmol/L AO ADM SS Urea nitrogen [Mass/Vol] 14 mg/dL Normal 7 - 18 mg/dL AO ADM SS Urea nitrogen/Creatinine [Mass ratio] 16 ratio Normal 7 - 27 ratio AO ADM SS WBC (Bld) [#/Vol] 7.6 103/mcL Normal 4.5 - 10.8 10^3/mcL AO Workflow SS CNPNon 06-06-2024 CNPN Telephone (NEMOWS) DEANDRA MCCARY ([id number]) 1985 F Date Time Provider Department 06/06/24 KAREN SAUL During your visit today, we recorded the following information about you: Maryam Pearson LPN 06/06/2024 1:35 PM Signed [facility] from [facility] Stress test Lab calling patient is scheduled for Monday 06/11 for tilt table. Patient needs to have labs done prior to that, CBC, CMP, Serum quantitative test done please. Copy of office notes explaining why tilt table test was ordered and lab results fax to [phone]. Karen Saul PA-C 06/06/2024 2:05 PM Signed Labs ordered. Bryson Wills LPN 06/06/2024 2:57 PM Signed Patient called, verified name and date of , regarding Advised patient labs are needed prior to tilt table, pt verbalized understanding. Will have these done at [facility]. Bryson Wills LPN June 06, 2024 2:56 PM Once labs are done will fax OV AND labs to [facility] Bryson Wills LPN June 06, 2024 2:57 PM Lovely Ham [facility] 06/10/2024 7:23 AM Signed Labs have not been completed at this time. MC message sent to patient reminding to complete labs prior to testing. MALINDA Stallings Allergies As of Date: 06/06/2024 Noted Allergy Reaction CODEINE 08/05/2016 8 - GI Upset PAXIL (PAROXETINE HCL) 04/24/2006 2 - Rash TYLENOL-CODEINE #3 (ACETAMINOPHEN*05/11/20 05 8 - GI Upset Date Reviewed: 04/05/2024 Reviewed by: Karen Saul PA-C - Fully Assessed Reason for Visit: Things that patient needs done prior to Monday tilt table [Other] Primary Visit Diagnosis:Palpitations [R00.2] Order(s):COMPLETE BLOOD COUNT [SQCBC] Order #: [id number] FUTURE COMPREHENSIVE METABOLIC PANEL [SQCMP] Order #: [id number] FUTURE HCG QUANTITATIVE [SQHCGQT] Order #: [id number] FUTURE Prescriptions as of 06/10/2024 - rimegepant (NURTEC ODT) 75 mg disintegrating tablet Take 1 tablet by mouth once daily as needed. - gabapentin (NEURONTIN) 300 mg capsule Take 1 capsule at 5-6PM, and 1 capsule at about 9-10PM. - melatonin 3 mg tablet Take 1 tablet at 9-10PM nightly. - omeprazole (PRILOSEC) 20 mg capsule Take 1 capsule by mouth once daily. - topiramate (TOPAMAX) 100 mg tablet take 1 tablet by mouth everyday at bedtime - albuterol HFA (PROVENTIL HFA, VENTOLIN HFA) 90 mcg/actuation inhaler INHALE 2 PUFFS BY MOUTH EVERY 6 HOURS NEEDED DIRECTED - NAPROXEN ORAL Take by mouth as needed. - ibuprofen (MOTRIN) 600 mg tablet TAKE 1 TABLET BY MOUTH EVERY 6 HOURS NEEDED FOR PAIN FOR 10 DAYS WITH FOOD/MILK FOR 10 DAYS - ondansetron (ZOFRAN) 4 mg tablet TAKE 1 TABLET BY MOUTH EVERY 6 HOURS NEEDED FOR NAUSEA/VOMITING FOR 5 DAYS Problem List As Of Date 06/06/2024 Noted Resolved RH ISOIMMUNIZAT-ANTEPART [O36.0990] 02/16/2006 12/17/2007 Lump or Mass in Breast [N63.0] 12/17/2007 12/09/2009 Mastodynia [N64.4] 12/17/2007 12/09/2009 ENDOMETRIOSIS NOS [N80.9] 12/17/2007 Dysmenorrhea [N94.6] 12/17/2007 04/14/2014 Female infertility of unspecified origin [N97.9]12/17/2007 12/05/2011 DIFFUS CYSTIC MASTOPATHY [N60.19] 01/04/2008 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0] 04/14/2014 Complex ovarian cyst [N83.299] 04/14/2014 Migraine with aura [G43.109] 07/17/2014 Tobacco abuse disorder [Z72.0] 01/13/2015 Chronic pelvic pain in female [R10.2, G89.29] 02/02/2016 Abnormal uterine bleeding [N93.9] 02/02/2016 Irritable bowel syndrome with diarrhea [K58.0] 02/02/2016 Gastroesophageal reflux disease [K21.9] 09/11/2020 Leg pain, bilateral [M79.604, M79.605] 04/26/2021 Palpitations [R00.2] 10/26/2021 Shortness of breath [R06.02] 03/25/2024 Precordial pain [R07.2] 03/25/2024 Encounter Status:Closed by BRYSON WILLS on 06/06/24 [facility] Rashid 06-04-2024 CNPN Telephone (AGCARDPOB ) DEANDRA MCCRAY ([id number]) 1985 F Date Time Provider Department 06/04/24 MICHELE GANDHI During your visit today, we recorded the following information about you: Sumanth Salazar RN 06/04/2024 12:34 PM Signed ----- Message from Michele Gandhi MD sent at 06/04/2024 12:02 PM EST ----- Normal echo Inform the patient Sumanth Goss RN 06/04/2024 12:36 PM Signed Spoke with pt. Notified of test results. Pt voices understanding. Sumanth Salazar RN Allergies As of Date: 06/04/2024 Noted Allergy Reaction CODEINE 08/05/2016 8 - GI Upset PAXIL (PAROXETINE HCL) 04/24/2006 2 - Rash TYLENOL-CODEINE #3 (ACETAMINOPHEN*05/11/20 05 8 - GI Upset Date Reviewed: 04/05/2024 Reviewed by: Karen Saul PA-C - Fully Assessed Reason for Visit: Results [95] Prescriptions as of 06/04/2024 - rimegepant (NURTEC ODT) 75 mg disintegrating tablet Take 1 tablet by mouth once daily as needed. - gabapentin (NEURONTIN) 300 mg capsule Take 1 capsule at 5-6PM, and 1 capsule at about 9-10PM. - melatonin 3 mg tablet Take 1 tablet at 9-10PM nightly. - omeprazole (PRILOSEC) 20 mg capsule Take 1 capsule by mouth once daily. - topiramate (TOPAMAX) 100 mg tablet take 1 tablet by mouth everyday at bedtime - albuterol HFA (PROVENTIL HFA, VENTOLIN HFA) 90 mcg/actuation inhaler INHALE 2 PUFFS BY MOUTH EVERY 6 HOURS NEEDED DIRECTED - NAPROXEN ORAL Take by mouth as needed. - ibuprofen (MOTRIN) 600 mg tablet TAKE 1 TABLET BY MOUTH EVERY 6 HOURS NEEDED FOR PAIN FOR 10 DAYS WITH FOOD/MILK FOR 10 DAYS - ondansetron (ZOFRAN) 4 mg tablet TAKE 1 TABLET BY MOUTH EVERY 6 HOURS NEEDED FOR NAUSEA/VOMITING FOR 5 DAYS Problem List As Of Date 06/04/2024 Noted Resolved RH ISOIMMUNIZAT-ANTEPART [O36.0990] 02/16/2006 12/17/2007 Lump or Mass in Breast [N63.0] 12/17/2007 12/09/2009 Mastodynia [N64.4] 12/17/2007 12/09/2009 ENDOMETRIOSIS NOS [N80.9] 12/17/2007 Dysmenorrhea [N94.6] 12/17/2007 04/14/2014 Female infertility of unspecified origin [N97.9]12/17/2007 12/05/2011 DIFFUS CYSTIC MASTOPATHY [N60.19] 01/04/2008 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0] 04/14/2014 Complex ovarian cyst [N83.299] 04/14/2014 Migraine with aura [G43.109] 07/17/2014 Tobacco abuse disorder [Z72.0] 01/13/2015 Chronic pelvic pain in female [R10.2, G89.29] 02/02/2016 Abnormal uterine bleeding [N93.9] 02/02/2016 Irritable bowel syndrome with diarrhea [K58.0] 02/02/2016 Gastroesophageal reflux disease [K21.9] 09/11/2020 Leg pain, bilateral [M79.604, M79.605] 04/26/2021 Palpitations [R00.2] 10/26/2021 Shortness of breath [R06.02] 03/25/2024 Precordial pain [R07.2] 03/25/2024 Encounter Status:Closed by SUMANTH SALAZAR on 06/04/24 Normal [facility] STRESS ECHO TREADMILLon 11-2 STRESS ECHO TREADMILL Stress Buttermaker Helper Report: Stress Echo [facility] Date of service: 05/20/2024 11:14:12 AM PROGRAM TEACHER Supervising physician: Michele Gandhi MD PATIENT: Name: MRS. DEANDRA MCCRAY Age: 38 years Gender: F The supervising physician was in the department and immediately available. Final ---- Echocardiography Report: Stress Echo [facility] Date of service: 05/20/2024 11:14:12 AM PROGRAM TEACHER Ordering physician: MICHELE GANDHI Indication: Chest Pain Technologist: Jeimy Noel [facility] Interpreting physician: Cydney Cerda DO PATIENT: Name: MRS. DEANDRA MCCRAY : 1985 Age: 38 years Gender: F Primary rhythm: sinus. Height: 162.60 cm BSA: 1.71 m Weight: 64.86 kg BMI: 24.5 kg/m Heart rate 63 bpm Blood pressure 100/66 mmHg Spectral Doppler was utilized to determine the flow velocities and pressure gradients reported in this exam. MEASUREMENTS: Value Indexed Normal LV stroke volume 37 ml (2D biplane) LV end diastolic volume 67 ml (2D biplane) 39.1 ml/m 29<=EDVi<62 LV end systolic volume 30 ml (2D biplane) 17.3 ml/m Ejection Fraction 56 % (2D biplane) EF > 54 FINDINGS: LEFT VENTRICLE The left ventricle is normal in size. Left ventricular systolic function is normal. Normal left ventricular diastolic function. Mitral annular lateral E/e': 7.3. Mitral annular septal E/e': 9.9. Wall Motion: Rest: All scored segments are normal. Stress: MITRAL VALVE The pressure half time is 45 msec. The peak mitral E/A ratio is 1.52. The average mitral E/e' ratio is 8.6. The mitral flow deceleration time is 157 msec. TRICUSPID VALVE PERICARDIUM There is no pericardial effusion. There is an epicardial fat pad. STRESS ECHO Peak HR 171 bpm. (95 % MPHR) Peak BP 120 mmHg/58 mmHg. CONCLUSIONS: - Exam indication: Chest Pain - The exercise stress echo was negative for ischemia at 95 % of MPHR (9.8 METS). - The left ventricle is normal in size. Left ventricular systolic function is normal. EF = 56 5% (2D biplane) Normal left ventricular diastolic function. - Exam was compared with the prior CC echocardiographic exam performed on 04/22/2024. Final ---- Stress ECG Report: Stress Echo [facility] Date of service: 05/20/2024 11:14:12 AM PROGRAM TEACHER Ordering physician: MICHELE GANDHI customer acquisition specialist: Radha Han RN Interpreting physician: Cydney Cerda DO Patient name: MRS. DEANDRA MCCRAY Age: 38 years Gender: F Height: 162.60 cm BSA: 1.71 m Weight: 64.86 kg BMI: 24.5 kg/m Indication: Chest pressure / Chest tightness, Palpitations and Shortness of breath Stress ECG Conclusion: Conclusion: Normal Prior exam comparison: No prior CC exam Stress ECG Summary: The patient's resting heart rate was 63 bpm and blood pressure was 100/66 mmHg. The patient exercised according to the Cash protocol. The estimated end-exercise MET level achieved using the FRIEND equation was 9.8, which is within the 75th to 90th percentile for age and sex. The estimated end-exercise MET level achieved using the previous ACSM equation was 12.4. The test was terminated due to general fatigue and the total exercise time was 11 minutes and 3 seconds. No symptoms provoked during stress. The maximum heart rate was 171 bpm, which is 95% of the predicted heart rate for age. This is an adequate heart rate response. Peak blood pressure was 120/58 mmHg. The double product achieved was [id number]. Resting ECG: Normal Sinus Rhythm Symptoms at rest: No symptoms Exercise Protocol: Cash Stress Exercise Table: +-----+ +---- ----+ +---+--- +---+----+---+----+ Stage Speed (MPH) Grade(%) Time (min) HR SYS MATTHEW RPE SOB METS +-----+ +---- ----+ +---+--- +---+----+---+----+ 1 1.7 10.0 3.0 111 108 60 9.0 2.0 4.2 +-----+ +---- ----+ +---+--- +---+----+---+----+ 2 2.5 12.0 6.0 121 116 62 11.0 2.0 6.1 +-----+ +---- ----+ +---+--- +---+----+---+----+ 3 3.4 14.0 9.0 148 120 58 15.0 4.0 8.3 +-----+ +---- ----+ +---+--- +---+----+---+----+ +-----+ +---- -----+ +---+-- -+---+----+---+----+ Speed (MPH) Grade (%) Time (min) HR SYS MATTHEW RPE SOB METS +-----+ +---- -----+ +---+-- -+---+----+---+----+ Final 4.2 16.0 11.05 171 120 58 16.0 4.0 9.8 +-----+ +---- -----+ +---+-- -+---+----+---+----+ Recovery Table: +------+---+---+---+ Stage HR SYS MATTHEW +------+---+---+---+ 1 120 (more content not included)... Normal [facility] Rashid 05-03-2024 C[facility]N Telephone [facility] DEANDRA MCCRAY ([id number]) 1985 F Date Time Provider Department 05/03/24 KAREN SAUL [facility] During your visit today, we recorded the following information about you: Karen Saul PA-C 05/03/2024 9:20 AM Signed Patient's MRI of the neck shows narrowing at C5-C6. This is flattening the cord, but overall the cord signal is normal. I would like patient to see spine for further evaluation of this. Lovely Ham OCCA 05/03/2024 9:41 AM Signed TC to patient no answer. Left VM to return call to office. MALINDA Stallings Amanda, RN 05/03/2024 9:48 AM Signed Pt called and is notified of providers results and instructions. Pt voices understanding. Transferred to scheduled to set up appt with [facility]. Cate Butler RN Allergies As of Date: 05/03/2024 Noted Allergy Reaction CODEINE 08/05/2016 8 - GI Upset PAXIL (PAROXETINE HCL) 04/24/2006 2 - Rash TYLENOL-CODEINE #3 (ACETAMINOPHEN*05/11/20 05 8 - GI Upset Date Reviewed: 04/05/2024 Reviewed by: Karen Saul PA-C - Fully Assessed Primary Visit Diagnosis:Cervical stenosis of spine [M48.02] Order(s):CONSULT TO NEUROLOGY [9019] Order #: [id number]: 1 FUTURE Prescriptions as of 05/03/2024 - rimegepant (NURTEC ODT) 75 mg disintegrating tablet Take 1 tablet by mouth once daily as needed. - gabapentin (NEURONTIN) 300 mg capsule Take 1 capsule at 5-6PM, and 1 capsule at about 9-10PM. - melatonin 3 mg tablet Take 1 tablet at 9-10PM nightly. - omeprazole (PRILOSEC) 20 mg capsule Take 1 capsule by mouth once daily. - topiramate (TOPAMAX) 100 mg tablet take 1 tablet by mouth everyday at bedtime - albuterol HFA (PROVENTIL HFA, VENTOLIN HFA) 90 mcg/actuation inhaler INHALE 2 PUFFS BY MOUTH EVERY 6 HOURS NEEDED DIRECTED - NAPROXEN ORAL Take by mouth as needed. - ibuprofen (MOTRIN) 600 mg tablet TAKE 1 TABLET BY MOUTH EVERY 6 HOURS NEEDED FOR PAIN FOR 10 DAYS WITH FOOD/MILK FOR 10 DAYS - ondansetron (ZOFRAN) 4 mg tablet TAKE 1 TABLET BY MOUTH EVERY 6 HOURS NEEDED FOR NAUSEA/VOMITING FOR 5 DAYS Problem List As Of Date 05/03/2024 Noted Resolved RH ISOIMMUNIZAT-ANTEPART [O36.0990] 02/16/2006 12/17/2007 Lump or Mass in Breast [N63.0] 12/17/2007 12/09/2009 Mastodynia [N64.4] 12/17/2007 12/09/2009 ENDOMETRIOSIS NOS [N80.9] 12/17/2007 Dysmenorrhea [N94.6] 12/17/2007 04/14/2014 Female infertility of unspecified origin [N97.9]12/17/2007 12/05/2011 DIFFUS CYSTIC MASTOPATHY [N60.19] 01/04/2008 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0] 04/14/2014 Complex ovarian cyst [N83.299] 04/14/2014 Migraine with aura [G43.109] 07/17/2014 Tobacco abuse disorder [Z72.0] 01/13/2015 Chronic pelvic pain in female [R10.2, G89.29] 02/02/2016 Abnormal uterine bleeding [N93.9] 02/02/2016 Irritable bowel syndrome with diarrhea [K58.0] 02/02/2016 Gastroesophageal reflux disease [K21.9] 09/11/2020 Leg pain, bilateral [M79.604, M79.605] 04/26/2021 Palpitations [R00.2] 10/26/2021 Shortness of breath [R06.02] 03/25/2024 Precordial pain [R07.2] 03/25/2024 Encounter Status:Closed by KAREN SAUL on 05/03/24 Normal [facility] MR Cervical spine WO and W c ontrast Gil 05-01-2024 IMPRESSION: Cervical spondylosis as described worst at C5-C6 with mild to moderate canal narrowing and mild ventral cord flattening with maintenance of the posterior CSF. No abnormal cord signal or enhancement. Anatomic Variant: None. Assume 7 cervical vertebrae with counting from the craniocervical junction. Hydro Plant Site Manager: [facility] Transcribe Date/Time: May 01 2024 11:08A Dictated by : JACQUELINE BILL MD This examination was interpreted and the report reviewed and electronically signed by: JACQUELINE BILL MD on May 01 2024 11:23AM [facility] DIVISION OF RADIOLOGY * * *Final Report* * * DATE OF EXAM: May 01 2024 10:45AM [facility] 0298 - MRI CERVICAL SPINE WO/W IVCON / PROCEDURE REASON: multiple diagnoses * * * * Physician Interpretation * * * * EXAMINATION: MRI CERVICAL SPINE WO/W IVCON CLINICAL HISTORY: Demyelinating disease of central nervous system (HCC) Cervicalgia Radiculopathy, cervical region TECHNIQUE: Routine cervical spine MR protocol without and with intravenous gadolinium. MQ: MRCSPWO_3 Contrast: Dotarem. Contrast Dose: 13 cc Route of Administration: IV COMPARISON: None. RESULT: Counting reference: Craniocervical junction. Anatomic Variants: None. Localizer images: No significant findings. Alignment: Straightening of the normal cervical lordosis, likely degenerative and positioning. Alignment is otherwise anatomic.. Craniocervical junction: Craniocervical junction is normal. Cord: The visualized cord is within normal limits of signal intensity but is ventrally flattened as outlined below. No abnormal enhancement. Bone marrow signal/fracture: No evidence of pathologic marrow infiltration. No evidence of prior fracture. Cervical soft tissues: The paraspinal soft tissues are within normal limits. C2-C3: Canal and foramina are patent. C3-C4: Canal and foramina are patent. C4-C5: Canal and foramina are patent. C5-C6: There is disc degeneration with disc osteophyte complex, uncovertebral spurring, and facet arthropathy causing mild to moderate canal narrowing with mild ventral cord flattening and mid to the posterior CSF, and moderate left foraminal stenosis. C6-C7: Canal and foramina are patent. C7-T1: Canal and foramina are patent. DIVISION OF RADIOLOGY Provider, [facility] - 05/01/2024 * * *Final Report* * * DATE OF EXAM: May 01 2024 10:45AM [facility] 0298 - MRI CERVICAL SPINE WO/W IVCON / PROCEDURE REASON: multiple diagnoses * * * * Physician Interpretation * * * * EXAMINATION: MRI CERVICAL SPINE WO/W IVCON CLINICAL HISTORY: Demyelinating disease of central nervous system (HCC) Cervicalgia Radiculopathy, cervical region TECHNIQUE: Routine cervical spine MR protocol without and with intravenous gadolinium. MQ: [id number]_3 Contrast: Dotarem. Contrast Dose: 13 cc Route of Administration: IV COMPARISON: None. RESULT: Counting reference: Craniocervical junction. Anatomic Variants: None. Localizer images: No significant findings. Alignment: Straightening of the normal cervical lordosis, likely degenerative and positioning. Alignment is otherwise anatomic.. Craniocervical junction: Craniocervical junction is normal. Cord: The visualized cord is within normal limits of signal intensity but is ventrally flattened as outlined below. No abnormal enhancement. Bone marrow signal/fracture: No evidence of pathologic marrow infiltration. No evidence of prior fracture. Cervical soft tissues: The paraspinal soft tissues are within normal limits. C2-C3: Canal and foramina are patent. C3-C4: Canal and foramina are patent. C4-C5: Canal and foramina are patent. C5-C6: There is disc degeneration with disc osteophyte complex, uncovertebral spurring, and facet arthropathy causing mild to moderate canal narrowing with mild ventral cord flattening and mid to the posterior CSF, and moderate left foraminal stenosis. C6-C7: Canal and foramina are patent. C7-T1: Canal and foramina are patent. IMPRESSION IMPRESSION: Cervical spondylosis as described worst at C5-C6 with mild to moderate canal narrowing and mild ventral cord flattening with maintenance of the posterior CSF. No abnormal cord signal or enhancement. Anatomic Variant: None. Assume 7 cervical vertebrae with counting from the craniocervical junction. Hydro Plant Site Manager: JACKIE Transcribe Date/Time: May 01 2024 11:08A Dictated by : JACQUELINE BILL MD This examination was interpreted and the report reviewed and electronically signed by: JACQUELINE BILL MD on May 01 2024 11:23AM EST [facility] Radiology Study observation (narrative) [facility] MR Cervical spine WO and W c ontrast IVOrdered By: [facility] Provider on 05-01-2024 [facility] MRI CERVICAL SPINE WO/W IVCO Non 05-01-2024 MRI CERVICAL SPINE WO/W IVCON * *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 LIG/TRNSXJ FLP TUBE ABDL/VAG APPR UNI/BI 05/17/2011 Tubal ligation PAST SURGICAL HISTORY OF 2000 SCALP LESION FAMILY HISTORY Problem Relation Age of Onset other (OVARIAN REMNANT SYNDROME) Mother age 52 pulmonary other (SLE) Mother Hypertension Mother Hyperlipidemia Mother Stroke Mother Heart Failure Mother COPD Mother Coronary Artery Disease Father age 58 MVA (motorcycle) Hypertension Father Hyperlipidemia Father Diabetes Father Developmental problem Sister MENTAL RETARDATION/SEXUAL ADDICTION Heart Maternal Grandmother ENLARGED HEART Cancer Maternal Grandfather LUNG Heart Maternal Grandfather [place] Diabetes Maternal Grandfather Heart Paternal Grandfather [place] Stroke Paternal Gran (more content not included)... Normal [facility] Panel InformationOrdered By: Jeremi Albrecht on 03-18-2024 Affirm Pathogens DNA Direct Probe Gardnerella vaginalis DNA Probe Negative Trichomonas vaginalis DNA Probe Negative Malorie species DNA Probe Negative [facility] Rashid 02-14-2024 CNPN Telephone ([employer]) DEANDRA MCCRAY ([id number]) 1985 F Date Time Provider Department 02/14/24 KAREN SAUL During your visit today, we recorded the following information about you: Karen Saul PA-C 02/14/2024 9:26 AM Signed Patient's heart monitor does not show any significant arrhythmia but due to her having regular palpitations, would like her to see a car park attendant. Lovely Ham OCCA 02/14/2024 10:05 AM Signed TC to patient who verbalized understanding of below. Patient has appointment scheduled with Dr. Gandhi on 03/25. MALINDA Stallings Allergies As of Date: 02/14/2024 Noted Allergy Reaction CODEINE 08/05/2016 8 - GI Upset PAXIL (PAROXETINE HCL) 04/24/2006 2 - Rash TYLENOL-CODEINE #3 (ACETAMINOPHEN*05/11/20 05 8 - GI Upset Date Reviewed: 01/04/2024 Reviewed by: Karen Saul PA-C - Fully Assessed Primary Visit Diagnosis:Palpitations [R00.2] Order(s):CONSULT TO CARDIOLOGY [9004] Order #: [id number]: 1 FUTURE Prescriptions as of 02/14/2024 - midodrine (PROAMATINE) 2.5 mg tablet TAKE 1 TABLET BY MOUTH TWO TIMES A DAY. FOR LOW BLOOD PRESSURE. - albuterol HFA (PROVENTIL HFA) 90 mcg/actuation inhaler Inhale 2 Puffs as instructed every 6 hours as needed. - NAPROXEN ORAL Take by mouth. - hydrOXYzine pamoate (VISTARIL) 25 mg capsule - ibuprofen (MOTRIN) 600 mg tablet TAKE 1 TABLET BY MOUTH EVERY 6 HOURS NEEDED FOR PAIN FOR 10 DAYS WITH FOOD/MILK FOR 10 DAYS - ondansetron (ZOFRAN) 4 mg tablet TAKE 1 TABLET BY MOUTH EVERY 6 HOURS NEEDED FOR NAUSEA/VOMITING FOR 5 DAYS - oxyCODONE-acetaminophen (PERCOCET) 5-325 mg tablet - topiramate (TOPAMAX) 100 mg tablet Take 1 tablet by mouth daily at bedtime. 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0] 04/14/2014 Complex ovarian cyst [N83.299] 04/14/2014 Migraine with aura [G43.109] 07/17/2014 Tobacco abuse disorder [Z72.0] 01/13/2015 Chronic pelvic pain in female [R10.2, G89.29] 02/02/2016 Abnormal uterine bleeding [N93.9] 02/02/2016 Irritable bowel syndrome with diarrhea [K58.0] 02/02/2016 Gastroesophageal reflux disease [K21.9] 09/11/2020 Leg pain, bilateral [M79.604, M79.605] 04/26/2021 Palpitations [R00.2] 10/26/2021 Encounter Status:Closed by KAREN SAUL on 02/14/24 Normal [facility] .Auto Diffon 01-31-2024 Basophil, Absolute 0.1 10 3/mcL Normal 0.0-0.2 [facility] ([place]) Comment on above: Performed By: #### B MP, GFR, MDW, CBC, TROPHS, ANEU, ADIFF #### [address] [address] Basophils/100 WBC (Bld) 0.8 % Normal 0.0-2.5 A [facility] ([place]) Comment on above: Performed By: #### B MP, GFR, MDW, CBC, TROPHS, ANEU, ADIFF #### [address] [address] Eosinophil, Absolute 0.2 10 3/mcL Normal 0.0-0.4 [facility] ([place]) Comment on above: Performed By: #### B MP, GFR, MDW, CBC, TROPHS, ANEU, ADIFF #### [address] [address] Eosinophils/100 WBC (Bld) 3.8 % Normal 0.0-7.0 Pending [facility] To [facility] ([place]) Comment on above: Performed By: #### B MP, GFR, MDW, CBC, TROPHS, ANEU, ADIFF #### [address] [address] Lymphocyte, Absolute 2.0 10 3/mcL Normal 0.8-3.9 [facility] ([place]) Comment on above: Performed By: #### B MP, GFR, MDW, CBC, TROPHS, ANEU, ADIFF #### [address] [address] Lymphocytes/100 WBC (Bld) 30.2 % Normal 10.0-50.0 [facility] ([place]) Comment on above: Performed By: #### B MP, GFR, MDW, CBC, TROPHS, ANEU, ADIFF #### [address] [address] Monocyte, Absolute 0.6 10 3/mcL Normal 0.2-1.0 [facility] ([place]) Comment on above: Performed By: #### B MP, GFR, MDW, CBC, TROPHS, ANEU, ADIFF #### [address] [address] Monocytes/100 WBC (Bld) 8.5 % Normal 1.7-13.0 A [facility] ([place]) Comment on above: Performed By: #### B MP, GFR, MDW, CBC, TROPHS, ANEU, ADIFF #### [address] [address] Neutrophils/100 WBC (Bld) 56.7 % Normal 37.0-80.0 [facility] ([place]) Comment on above: Performed By: #### B MP, GFR, MDW, CBC, TROPHS, ANEU, ADIFF #### [address] [address] .GFRon 01-31-2024 GFR 86 ml/min/1.73sqm Normal P[facility] ([place]) Comment on above: Result Comment: GFR Population mean for , Non- Americans Ages 20-29 = 116 mL/min/1.73 sq.m. Ages 30-39 = 107 mL/min/1.73 sq.m. Ages 40-49 = 99 mL/min/1.73 sq.m. Ages 50-59 = 93 mL/min/1.73 sq.m. Ages 60-69 = 85 mL/min/1.73 sq.m. Ages 70+ = 75 mL/min/1.73 sq.m. Chronic Kidney Disease: Less than 60 mL/min/1.73 square meters End Stage Renal Disease: Less than 15 mL/min/1.73 square meters Performed By: #### B MP, GFR, MDW, CBC, TROPHS, ANEU, ADIFF #### [address] [address] GFR Non- 71 ml/min/1.73sqm Normal [facility] ([place]) Comment on above: Result Comment: GFR Population mean for , Non- Americans Ages 20-29 = 116 mL/min/1.73 sq.m. Ages 30-39 = 107 mL/min/1.73 sq.m. Ages 40-49 = 99 mL/min/1.73 sq.m. Ages 50-59 = 93 mL/min/1.73 sq.m. Ages 60-69 = 85 mL/min/1.73 sq.m. Ages 70+ = 75 mL/min/1.73 sq.m. Chronic Kidney Disease: Less than 60 mL/min/1.73 square meters End Stage Renal Disease: Less than 15 mL/min/1.73 square meters Performed By: #### B MP, GFR, MDW, CBC, TROPHS, ANEU, ADIFF #### [address] [address] .MDWon 01-31-2024 Monocyte Distribution Width 14.95 Normal 0.00-20.00 [facility] ([place]) Comment on above: Result Comment: For ED adult patients suspected of sepsis, MDW<=20.0 does not rule out sepsis or risk of sepsis Performed By: #### B MP, GFR, MDW, CBC, TROPHS, ANEU, ADIFF #### [address] [address] .NEUABSon 01-31-2024 Neutrophil, Absolute 3.7 10 3/mcL Normal 2.9-6.2 [facility] ([place]) Comment on above: Performed By: #### B MP, GFR, MDW, CBC, TROPHS, ANEU, ADIFF #### [address] [address] BMPon 01-31-2024 BUN/Creatinine Ratio 12 ratio Normal 7-27 [facility] ([place]) Comment on above: Performed By: #### B MP, GFR, MDW, CBC, TROPHS, ANEU, ADIFF #### [address] [address] Calcium [Mass/Vol] 8.7 mg/dL Normal 8.4-10.2 [facility] ([place]) Comment on above: Performed By: #### B MP, GFR, MDW, CBC, TROPHS, ANEU, ADIFF #### [address] [address] Chloride [Moles/Vol] 109 mmol/L High 98-107 [facility] ([place]) Comment on above: Performed By: #### B MP, GFR, MDW, CBC, TROPHS, ANEU, ADIFF #### [address] [address] CO2 [Moles/Vol] 23 mmol/L Normal 22-29 [facility] ([place]) Comment on above: Performed By: #### B MP, GFR, MDW, CBC, TROPHS, ANEU, ADIFF #### [address] [address] Creatinine [Mass/Vol] 0.88 mg/dL Normal 0.55-1.02 [facility] ([place]) Comment on above: Performed By: #### B MP, GFR, MDW, CBC, TROPHS, ANEU, ADIFF #### [address] [address] Electrolyte Balance 11.0 mEq/L Normal 4.0-15.0 [facility] ([place]) Comment on above: Performed By: #### B MP, GFR, MDW, CBC, TROPHS, ANEU, ADIFF #### [address] [address] Glucose [Mass/Vol] 76 mg/dL Normal 70-105 [facility] ([place]) Comment on above: Performed By: #### B MP, GFR, MDW, CBC, TROPHS, ANEU, ADIFF #### [address] [address] Potassium [Moles/Vol] 3.7 mmol/L Normal 3.5-5.1 [facility] ([place]) Comment on above: Performed By: #### B MP, GFR, MDW, CBC, TROPHS, ANEU, ADIFF #### [address] [address] Sodium [Moles/Vol] 143 mmol/L Normal 136-145 [facility] ([place]) Comment on above: Performed By: #### B MP, GFR, MDW, CBC, TROPHS, ANEU, ADIFF #### [address] [address] Urea nitrogen [Mass/Vol] 11 mg/dL Normal 7-18 [facility] ([place]) Comment on above: Performed By: #### B MP, GFR, MDW, CBC, TROPHS, ANEU, ADIFF #### [address] [address] CBCon 01-31-2024 Erythrocyte distribution width (RBC) [Ratio] 12.9 % Normal 11.5-14.5 [facility] ([place]) Comment on above: Performed By: #### B MP, GFR, MDW, CBC, TROPHS, ANEU, ADIFF #### [address] [address] Hematocrit (Bld) [Volume fraction] 41.2 % Normal 37.0-47.0 [facility] ([place]) Comment on above: Performed By: #### B MP, GFR, MDW, CBC, TROPHS, ANEU, ADIFF #### [address] [address] Hgb 13.8 G/dL Normal 12.0-16.0 [facility] ([place]) Comment on above: Performed By: #### B MP, GFR, MDW, CBC, TROPHS, ANEU, ADIFF #### [address] [address] MCH (RBC) [Entitic mass] 31.2 pg Normal 27.0-31.2 [facility] ([place]) Comment on above: Performed By: #### B MP, GFR, MDW, CBC, TROPHS, ANEU, ADIFF #### [address] [address] MCHC 33.4 G/dL Normal 33.0-37.0 [facility] ([place]) Comment on above: Performed By: #### B MP, GFR, MDW, CBC, TROPHS, ANEU, ADIFF #### [address] [address] MCV (RBC) [Entitic vol] 93.4 fL Normal 80.0-94.0 A [facility] ([place]) Comment on above: Performed By: #### B MP, GFR, MDW, CBC, TROPHS, ANEU, ADIFF #### [address] [address] Platelet 173 10 3/mcL Normal 130-400 [facility] ([place]) Comment on above: Performed By: #### B MP, GFR, MDW, CBC, TROPHS, ANEU, ADIFF #### [address] [address] Platelet mean volume (Bld) [Entitic vol] 9.6 fL Normal 7.4-10.4 P[facility] ([place]) Comment on above: Performed By: #### B MP, GFR, MDW, CBC, TROPHS, ANEU, ADIFF #### [address] [address] RBC 4.41 10 6/mcL Normal 4.20-5.40 P[facility] ([place]) Comment on above: Performed By: #### B MP, GFR, MDW, CBC, TROPHS, ANEU, ADIFF #### [address] [address] WBC 6.6 10 3/mcL Normal 4.6-10.8 [facility] ([place]) Comment on above: Performed By: #### B MP, GFR, MDW, CBC, TROPHS, ANEU, ADIFF #### [address] [address] [address] ANGIOGRAPHY CHEST W/CONTR Tami 01-31-2024 CT ANGIOGRAPHY CHEST W/CONTRAST ORIGINAL EXAMINATION: CTA OF THE CHEST01/31/2024 5:29 pm CTA CHEST WITH CONTRAST TECHNIQUE: CTA of the chest was performed after the administration of intravenous contrast. Multiplanar reformatted images are provided for review. MIP images are provided for review. Automated exposure control, iterative reconstruction, and/or weight based adjustment of the mA/kV was utilized to reduce the radiation dose to as low as reasonably achievable. 3-D reformats were obtained on a separate workstation. COMPARISON: Chest, December 02, 2023 HISTORY: ORDERING SYSTEM PROVIDED HISTORY: Reason for Exam: difficulty breathing; suspect PE FINDINGS: Thoracic inlet structures are unremarkable in appearance. No pathologically enlarged hilar or mediastinal lymph nodes. The great vessels, heart and pericardium are unremarkable in size and appearance. No focal infiltrate or pulmonary nodule. No pleural effusion or pneumothorax. The incidentally included portions of the upper abdomen are within normal limits. The CT angiogram portion of the examination shows adequate contrast enhancement of the pulmonary arteries. The main and segmental pulmonary arteries are of normal size. No intraluminal filling defects are seen through the level of the segmental pulmonary arteries and opacified subsegmental pulmonary arteries. IMPRESSION: 1. No evidence of pulmonary embolus. 2. No acute intrathoracic pathology Interpreted by: Denise Parra MD Preliminary Report By: Denise Parra MD Electronically signed By Denise Parra MD Dictated Date: 01/31/2024 5:56:23 PM Prelim Date: 01/31/2024 6:04:07 PM Sign Date: 01/31/2024 6:04:07 PM Ordering Provider: JOVON [facility]) DIMERon 01-31-2024 D-Dimer 239 ng/mL D-DU High 0-230 [facility]) Comment on above: Result Comment: Resu lts reported in D-DU ng/mL. Positive for D-dimer. A positive D-Dimer may occur in the following: DVT, PE, DIC, Trauma, Cancer, Sepsis, , Rheumatoid arthritis, Myocardial infarction and Cirrhosis. The presence of Rheumatoid Factor and HAMA (human mouse antibody) produces an overestimation of test results. The result of the D-Dimer test should be evaluated in the context of all the clinical and laboratory data available. In those instances where the laboratory result does not agree with the clinical evaluation, additional tests should be performed accordingly. If the D-Dimer result is used to exclude DVT or PE, the recommended cutoff value is less than 230 ng/mL. The D-Dimer result should not be used alone to rule in DVT/PE, but should be used in conjunction with a clinical pretest probability (PTP)assessment model to exclude venous thromboembolism (VTE) in outpatients suspected of deep venous thrombosis (DVT) and pulmonary embolism (PE). Performed By: #### B MP, GFR, MDW, CBC, TROPHS, ANEU, ADIFF #### [place] [address] LABORATORYOrdered By: SYSTEM SYSTEM on 01-31-2024 Basophil, Absolute 0.1 103/mcL Normal 0.0 - 0.2 10^3/mcL AO Workflow SS Basophils/100 WBC (Bld) 0.8 % Normal 0.0 - 2.5 % AO Workflow SS Calcium [Mass/Vol] 8.7 mg/dL Normal 8.4 - 10. 2 mg/dL AO ADM SS Chloride [Moles/Vol] 109 mmol/L High 98 - 10 7 mmol/L AO ADM SS CO2 [Moles/Vol] 23 mmol/L Normal 22 - 29 mmol/L AO ADM SS Creatinine [Mass/Vol] 0.88 mg/dL Normal 0.55 - 1.02 mg/dL AO ADM SS Electrolyte Balance 11.0 mEq/L Normal 4.0 - 15 .0 mEq/L AO ADM SS Eosinophil, Absolute 0.2 103/mcL Normal 0.0 - 0 .4 10^3/mcL AO Workflow SS Eosinophils/100 WBC (Bld) 3.8 % Normal 0.0 - 7.0 % AO Workflow SS Erythrocyte distribution width (RBC) [Ratio] 12.9 % Normal 11.5 - 14.5 % AO Workflow SS GFR/1.73 sq M.predicted among blacks MDRD (S/P/Bld) [Vol rate/Area] 86 ml/min/1.73sqm Invalid Interpretation Code AO Chemistry S Comment on above: Interpretive Data: GFR Population mean for , Non- Americans Ages 20-29 = 116 mL/min/1.73 sq.m. Ages 30-39 = 107 mL/min/1.73 sq.m. Ages 40-49 = 99 mL/min/1.73 sq.m. Ages 50-59 = 93 mL/min/1.73 sq.m. Ages 60-69 = 85 mL/min/1.73 sq.m. Ages 70+ = 75 mL/min/1.73 sq.m. Chronic Kidney Disease: Less than 60 mL/min/1.73 square meters End Stage Renal Disease: Less than 15 mL/min/1.73 square meters GFR/1.73 sq M.predicted among non-blacks MDRD (S/P/Bld) [Vol rate/Area] 71 ml/min/1.73sqm Invalid Interpretation Code AO Chemistry S Comment on above: Interpretive Data: GFR Population mean for , Non- Americans Ages 20-29 = 116 mL/min/1.73 sq.m. Ages 30-39 = 107 mL/min/1.73 sq.m. Ages 40-49 = 99 mL/min/1.73 sq.m. Ages 50-59 = 93 mL/min/1.73 sq.m. Ages 60-69 = 85 mL/min/1.73 sq.m. Ages 70+ = 75 mL/min/1.73 sq.m. Chronic Kidney Disease: Less than 60 mL/min/1.73 square meters End Stage Renal Disease: Less than 15 mL/min/1.73 square meters Glucose [Mass/Vol] 76 mg/dL Normal 70 - 105 mg/dL AO ADM SS Hematocrit (Bld) [Volume fraction] 41.2 % Normal 37.0 - 47.0 % AO Workflow SS Hemoglobin (Bld) [Mass/Vol] 13.8 G/dL Normal 12.0 - 16.0 G/dL AO Workflow SS Lymphocyte, Absolute 2.0 103/mcL Normal 0.8 - 3 .9 10^3/mcL AO Workflow SS Lymphocytes/100 WBC (Bld) 30.2 % Normal 10.0 - 50.0 % AO Workflow SS MCH (RBC) [Entitic mass] 31.2 pg Normal 27.0 - 31.2 pg AO Workflow SS MCHC 33.4 G/dL Normal 33.0 - 37.0 G/dL AO Workflow SS MCV (RBC) [Entitic vol] 93.4 fL Normal 80.0 - 94.0 fL AO Workflow SS Monocyte distribution width Auto (Bld) [Entitic vol] 14.95 1 Normal 0.00 - 20.00 AO Workflow SS Comment on above: Result Comment: For ED adult patients suspected of sepsis, MDW<=20.0 does not rule out sepsis or risk of sepsis Monocyte, Absolute 0.6 103/mcL Normal 0.2 - 1.0 10^3/mcL AO Workflow SS Monocytes/100 WBC (Bld) 8.5 % Normal 1.7 - 13.0 % AO Workflow SS Neutrophil, Absolute 3.7 103/mcL Normal 2.9 - 6 .2 10^3/mcL AO Workflow SS Neutrophils/100 WBC (Bld) 56.7 % Normal 37.0 - 80.0 % AO Workflow SS Platelet mean volume (Bld) [Entitic vol] 9.6 fL Normal 7.4 - 10.4 fL AO Workflow SS Platelets (Bld) [#/Vol] 173 103/mcL Normal 130 - 400 10^3/mcL AO Workflow SS Potassium [Moles/Vol] 3.7 mmol/L Normal 3.5 - 5.1 mmol/L AO ADM SS RBC (Bld) [#/Vol] 4.41 106/mcL Normal 4.20 - 5.4 0 10^6/mcL AO Workflow SS Sodium [Moles/Vol] 143 mmol/L Normal 136 - 145 mmol/L AO ADM SS Troponin I.cardiac DL <= 0.01 ng/mL [Mass/Vol] ng/L Normal 0 - 51 ng/L AO ADM SS Comment on above: Interpretive Data: H igh Sensitive Troponin I Reference Ranges: Female: 0-51 ng/L Male: 0-76 ng/L Testing performed on Dheere Bolo using a homogeneous sandwich chemiluminescent immunoassay based on [employer] technology. Urea nitrogen [Mass/Vol] 11 mg/dL Normal 7 - 18 mg/dL AO ADM SS Urea nitrogen/Creatinine [Mass ratio] 12 ratio Normal 7 - 27 ratio AO ADM SS WBC (Bld) [#/Vol] 6.6 103/mcL Normal 4.6 - 10.8 10^3/mcL AO Workflow SS LABORATORYOrdered By: Mary Bond on 01-31-2024 Fibrin D-dimer DDU (PPP) [Mass/Vol] 239 ng/mL D-DU High 0 - 230 ng/mL D-DU AO HemoHub SS Comment on above: Result Comment: Resu lts reported in D-DU ng/mL. Positive for D-dimer. A positive D-Dimer may occur in the following: DVT, PE, DIC, Trauma, Cancer, Sepsis, , Rheumatoid arthritis, Myocardial infarction and Cirrhosis. The presence of Rheumatoid Factor and HAMA (human mouse antibody) produces an overestimation of test results. Interpretive Data: T he result of the D-Dimer test should be evaluated in the context of all the clinical and laboratory data available. In those instances where the laboratory result does not agree with the clinical evaluation, additional tests should be performed accordingly. If the D-Dimer result is used to exclude DVT or PE, the recommended cutoff value is less than 230 ng/mL. The D-Dimer result should not be used alone to rule in DVT/PE, but should be used in conjunction with a clinical pretest probability (PTP)assessment model to exclude venous thromboembolism (VTE) in outpatients suspected of deep venous thrombosis (DVT) and pulmonary embolism (PE). Radha 01-31-2024 High Sensitivity Troponin I <4 Normal 0-51 Pending Sale To [facility] ([place]) Comment on above: Result Comment: High Sensitive Troponin I Reference Ranges: Female: 0-51 ng/L Male: 0-76 ng/L Testing performed on Dheere Bolo using a homogeneous sandwich chemiluminescent immunoassay based on [employer] technology. Performed By: #### B MP, GFR, MDW, CBC, TROPHS, ANEU, ADIFF #### [place] [id number] [place], [place] [address] XR CHEST 2 VIEWSon XR CHEST 2 VIEWS ORIGINAL EXAMINATION: TWO XRAY VIEWS OF THE CHEST 01/31/2024 4:39 pm COMPARISON: 12/02/2023 HISTORY: ORDERING SYSTEM PROVIDED HISTORY: Reason for Exam: Chest Pain FINDINGS: Normal cardiomediastinal silhouette. No focal consolidation. No large pleural effusion or pneumothorax. No acute osseous findings. IMPRESSION: No acute radiographic findings. Preliminary Report was Dictated by a Resident I have personally reviewed the images of this examination and agree with the resident's findings and interpretation. Angel Antonio M.D. Interpreted by: Angel Antonio Preliminary Report By: Emeka Cervantes Electronically signed By Angel Antonio Dictated Date: 01/31/2024 4:43:06 PM Prelim Date: 01/31/2024 4:43:53 PM Sign Date: 01/31/2024 8:45:23 PM Ordering Provider: JOVON CAZARES [facility] ([place]) Final Surgical Pathology Rep kota 12-11-2023 Final Surgical Pathology Report . Pathology Reports Accession: Collected Date/Time: Received Date/Time: Pathologist: [id number] 12/07/2023 14:36 EDT 12/08/2023 09:21 JOHN PATINO MD Final Surgical Pathology Report DIAGNOSIS: UTERUS, CERVIX -NABOTHIAN CYST FORMATION: - UTERUS, SEROSA -ENDOMETRIOSIS AND FOCAL FIBROUS ADHESIONS - UTERUS, MYOMETRIUM - ADENOMYOSIS - UTERUS, ENDOMETRIUM -SECRETORY CLINICAL INFORMATION: MENORRHAGIA; DYSMENORRHEA Procedure: LAPAROSCOPIC ASSISTED VAGINAL HYSTERECTOMY Preoperative diagnosis: MENORRHAGIA; DYSMENORRHEA Postoperative diagnosis: MENORRHAGIA; DYSMENORRHEA SPECIMEN: A CERVIX, UTERUS GROSS DESCRIPTION: All parts labelled with patient name and [id number] Received in formalin and designated cervix, uterus is a uterus and cervix, 93.5 g and and 8.0 x 5.5 x 3.9 cm. The serosal surface is rivera-pink with scant focal rivera-red adhesions.. The ectocervix is rivera-pink and has a patent 1.0 cm os. The endocervical canal is 2.5 cm in length and is grossly unremarkable. The uterine cavity is 4.5 x 3.1 cm and is lined by rivera-red 0.1 to 0.3 cm grossly unremarkable endometrium. The myometrium ranges between 1.5 and 2.1 cm thick. Grossly the myometrium is unremarkable. Kiln Drawer sections are submitted with scant serosal adhesions in cassette A1, anterior 12:00 cervix A2, posterior 6:00 cervix A3, anterior endomyometrium A4, posterior endomyometrium A5. RS-5 Mora iFne, MS LAUREN Dictated by Dolly Fine MICROSCOPIC DESCRIPTION: The microscopic examination is performed, except in the case of Gross Only. Electronically Signed by Pathology Report verified by [facility] JOHN ESTRELLA Sign out Date: 12/11/2023 14:49 Performing Lab: [facility], [address] [place] [address] Pathology Dept Disclaimer If ancillary studies were utilized, the following Laboratory Developed Test (LDT) disclaimer will apply: Under CLIA requirements, [facility] is qualified to perform high complexity testing. For all ancillary stains, positive and negative controls stain appropriately. Performance characteristics of immunohistochemical and chromogenic in-situ hybridization tests have been determined by [facility]. These tests are used for clinical purposes, They should not be regarded as investigational or for research. Normal Pending [facility] To [facility] ([place]) .Auto Diffon 12-08-2023 Basophil, Absolute 0.1 10 3/mcL Normal 0.0-0.2 [facility] ([place]) Comment on above: Performed By: #### B MP, GFR, MDW, CBC, TROPHS, ANEU, ADIFF #### [address] [address] Basophils/100 WBC (Bld) 0.5 % Normal 0.0-2.5 A [facility] ([place]) Comment on above: Performed By: #### B MP, GFR, MDW, CBC, TROPHS, ANEU, ADIFF #### [address] [address] Eosinophil, Absolute 0.1 10 3/mcL Normal 0.0-0.4 [facility] ([place]) Comment on above: Performed By: #### B MP, GFR, MDW, CBC, TROPHS, ANEU, ADIFF #### [address] [address] Eosinophils/100 WBC (Bld) 1.2 % Normal 0.0-7.0 Pending [facility] To [facility] ([place]) Comment on above: Performed By: #### B MP, GFR, MDW, CBC, TROPHS, ANEU, ADIFF #### [address] [address] Lymphocyte, Absolute 2.1 10 3/mcL Normal 0.8-3.9 [facility] ([place]) Comment on above: Performed By: #### B MP, GFR, MDW, CBC, TROPHS, ANEU, ADIFF #### [address] [address] Lymphocytes/100 WBC (Bld) 17.4 % Normal 10.0-50.0 Pending [facility] ([place]) Comment on above: Performed By: #### B MP, GFR, MDW, CBC, TROPHS, ANEU, ADIFF #### [address] [address] Monocyte, Absolute 0.9 10 3/mcL Normal 0.2-1.0 [facility] ([place]) Comment on above: Performed By: #### B MP, GFR, MDW, CBC, TROPHS, ANEU, ADIFF #### [address] [address] Monocytes/100 WBC (Bld) 7.3 % Normal 1.7-13.0 A [facility] ([place]) Comment on above: Performed By: #### B MP, GFR, MDW, CBC, TROPHS, ANEU, ADIFF #### [address] [address] Neutrophils/100 WBC (Bld) 73.6 % Normal 37.0-80.0 Pending [facility] To [facility] ([place] Comment on above: Performed By: #### B MP, GFR, MDW, CBC, TROPHS, ANEU, ADIFF #### [address] [address] .GFRon 12-08-2023 GFR 60 ml/min/1.73sqm Normal Pending [facility] To [facility] ([place]) Comment on above: Result Comment: GFR Population mean for , Non- Americans Ages 20-29 = 116 mL/min/1.73 sq.m. Ages 30-39 = 107 mL/min/1.73 sq.m. Ages 40-49 = 99 mL/min/1.73 sq.m. Ages 50-59 = 93 mL/min/1.73 sq.m. Ages 60-69 = 85 mL/min/1.73 sq.m. Ages 70+ = 75 mL/min/1.73 sq.m. Chronic Kidney Disease: Less than 60 mL/min/1.73 square meters End Stage Renal Disease: Less than 15 mL/min/1.73 square meters Performed By: #### B MP, GFR, MDW, CBC, TROPHS, ANEU, ADIFF #### [address] [address] GFR Non- 50 ml/min/1.73sqm Normal Pending [facility] To [facility] ([place]) Comment on above: Result Comment: GFR Population mean for , Non- Americans Ages 20-29 = 116 mL/min/1.73 sq.m. Ages 30-39 = 107 mL/min/1.73 sq.m. Ages 40-49 = 99 mL/min/1.73 sq.m. Ages 50-59 = 93 mL/min/1.73 sq.m. Ages 60-69 = 85 mL/min/1.73 sq.m. Ages 70+ = 75 mL/min/1.73 sq.m. Chronic Kidney Disease: Less than 60 mL/min/1.73 square meters End Stage Renal Disease: Less than 15 mL/min/1.73 square meters Performed By: #### B MP, GFR, MDW, CBC, TROPHS, ANEU, ADIFF #### [address] [address] .NEUABSon 12-08-2023 Neutrophil, Absolute 9.0 10 3/mcL High 2.9-6.2 [facility] ([place]) Comment on above: Performed By: #### B MP, GFR, MDW, CBC, TROPHS, ANEU, ADIFF #### [address] [address] BMPon 12-08-2023 BUN/Creatinine Ratio 8 ratio Normal 7-27 [facility] ([place]) Comment on above: Performed By: #### B MP, GFR, MDW, CBC, TROPHS, ANEU, ADIFF #### [address] [address] Calcium [Mass/Vol] 8.1 mg/dL Low 8.4-10.2 [facility] ([place]) Comment on above: Performed By: #### B MP, GFR, MDW, CBC, TROPHS, ANEU, ADIFF #### [address] [address] Chloride [Moles/Vol] 108 mmol/L High 98-107 [facility] ([place]) Comment on above: Performed By: #### B MP, GFR, MDW, CBC, TROPHS, ANEU, ADIFF #### [address] [address] CO2 [Moles/Vol] 23 mmol/L Normal 22-29 Pending [facility] ([place] Comment on above: Performed By: #### B MP, GFR, MDW, CBC, TROPHS, ANEU, ADIFF #### [address] [address] Creatinine [Mass/Vol] 1.20 mg/dL High 0.55-1.02 [facility] ([place]) Comment on above: Performed By: #### B MP, GFR, MDW, CBC, TROPHS, ANEU, ADIFF #### [address] [address] Electrolyte Balance 8.0 mEq/L Normal 4.0-15.0 [facility] ([place]) Comment on above: Performed By: #### B MP, GFR, MDW, CBC, TROPHS, ANEU, ADIFF #### [address] [address] Glucose [Mass/Vol] 108 mg/dL High 70-105 [facility] ([place]) Comment on above: Performed By: #### B MP, GFR, MDW, CBC, TROPHS, ANEU, ADIFF #### [address] [address] Potassium [Moles/Vol] 4.2 mmol/L Normal 3.5-5.1 [facility] ([place]) Comment on above: Performed By: #### B MP, GFR, MDW, CBC, TROPHS, ANEU, ADIFF #### [address] [address] Sodium [Moles/Vol] 139 mmol/L Normal 136-145 [facility] ([place]) Comment on above: Performed By: #### B MP, GFR, MDW, CBC, TROPHS, ANEU, ADIFF #### [address] [address] Urea nitrogen [Mass/Vol] 10 mg/dL Normal 7-18 Pending [facility] To [facility] ([place] Comment on above: Performed By: #### B MP, GFR, MDW, CBC, TROPHS, ANEU, ADIFF #### [address] [address] CBCon 12-08-2023 Erythrocyte distribution width (RBC) [Ratio] 12.7 % Normal 11.5-14.5 Pending [facility] To [facility] ([place] Comment on above: Performed By: #### B MP, GFR, MDW, CBC, TROPHS, ANEU, ADIFF #### [address] [address] Hematocrit (Bld) [Volume fraction] 34.8 % Low 37.0-47.0 Pending [facility] To [facility] ([place] Comment on above: Performed By: #### B MP, GFR, MDW, CBC, TROPHS, ANEU, ADIFF #### [address] [address] Hgb 11.8 G/dL Low 12.0-16.0 Pending [facility] To [facility] ([place] Comment on above: Performed By: #### B MP, GFR, MDW, CBC, TROPHS, ANEU, ADIFF #### [address] [address] MCH (RBC) [Entitic mass] 31.2 pg Normal 27.0-31.2 Pending [facility] To [facility] ([place] Comment on above: Performed By: #### B MP, GFR, MDW, CBC, TROPHS, ANEU, ADIFF #### [address] [address] MCHC 33.8 G/dL Normal 33.0-37.0 Pending [facility] To [facility] ([place] Comment on above: Performed By: #### B MP, GFR, MDW, CBC, TROPHS, ANEU, ADIFF #### [address] [address] MCV (RBC) [Entitic vol] 92.5 fL Normal 80.0-94.0 A [facility] ([place]) Comment on above: Performed By: #### B MP, GFR, MDW, CBC, TROPHS, ANEU, ADIFF #### [address] [address] Platelet 153 10 3/mcL Normal 130-400 Pending [facility] To [facility] ([place] Comment on above: Performed By: #### B MP, GFR, MDW, CBC, TROPHS, ANEU, ADIFF #### [address] [address] Platelet mean volume (Bld) [Entitic vol] 10.0 fL Normal 7.4-10.4 Pending [facility] To [facility] ([place] Comment on above: Performed By: #### B MP, GFR, MDW, CBC, TROPHS, ANEU, ADIFF #### [address] [place] [address] RBC 3.76 10 6/mcL Low 4.20-5.40 Pending [facility] To [facility] ([place] Comment on above: Performed By: #### B MP, GFR, MDW, CBC, TROPHS, ANEU, ADIFF #### [place] [address] WBC 12.2 10 3/mcL High 4.6-10.8 Pending [facility] To [facility] ([place] Comment on above: Performed By: #### B MP, GFR, MDW, CBC, TROPHS, ANEU, ADIFF #### [address] [address] LABORATORYOrdered By: SYSTEM SYSTEM on 12-08-2023 Basophil, Absolute 0.1 103/mcL Normal 0.0 - 0.2 10^3/mcL AO Workflow SS Basophils/100 WBC (Bld) 0.5 % Normal 0.0 - 2.5 % AO Workflow SS Calcium [Mass/Vol] 8.1 mg/dL Low 8.4 - 10. 2 mg/dL AO ADM SS Chloride [Moles/Vol] 108 mmol/L High 98 - 10 7 mmol/L AO ADM SS CO2 [Moles/Vol] 23 mmol/L Normal 22 - 29 mmol/L AO ADM SS Creatinine [Mass/Vol] 1.20 mg/dL High 0.55 - 1.02 mg/dL AO ADM SS Electrolyte Balance 8.0 mEq/L Normal 4.0 - 15 .0 mEq/L AO ADM SS Eosinophil, Absolute 0.1 103/mcL Normal 0.0 - 0 .4 10^3/mcL AO Workflow SS Eosinophils/100 WBC (Bld) 1.2 % Normal 0.0 - 7.0 % AO Workflow SS Erythrocyte distribution width (RBC) [Ratio] 12.7 % Normal 11.5 - 14.5 % AO Workflow SS GFR/1.73 sq M.predicted among blacks MDRD (S/P/Bld) [Vol rate/Area] 60 ml/min/1.73sqm Invalid Interpretation Code AO Chemistry S Comment on above: Interpretive Data: GFR Population mean for , Non- Americans Ages 20-29 = 116 mL/min/1.73 sq.m. Ages 30-39 = 107 mL/min/1.73 sq.m. Ages 40-49 = 99 mL/min/1.73 sq.m. Ages 50-59 = 93 mL/min/1.73 sq.m. Ages 60-69 = 85 mL/min/1.73 sq.m. Ages 70+ = 75 mL/min/1.73 sq.m. Chronic Kidney Disease: Less than 60 mL/min/1.73 square meters End Stage Renal Disease: Less than 15 mL/min/1.73 square meters GFR/1.73 sq M.predicted among non-blacks MDRD (S/P/Bld) [Vol rate/Area] 50 ml/min/1.73sqm Invalid Interpretation Code AO Chemistry S Comment on above: Interpretive Data: GFR Population mean for , Non- Americans Ages 20-29 = 116 mL/min/1.73 sq.m. Ages 30-39 = 107 mL/min/1.73 sq.m. Ages 40-49 = 99 mL/min/1.73 sq.m. Ages 50-59 = 93 mL/min/1.73 sq.m. Ages 60-69 = 85 mL/min/1.73 sq.m. Ages 70+ = 75 mL/min/1.73 sq.m. Chronic Kidney Disease: Less than 60 mL/min/1.73 square meters End Stage Renal Disease: Less than 15 mL/min/1.73 square meters Glucose [Mass/Vol] 108 mg/dL High 70 - 105 mg/dL AO ADM SS Hematocrit (Bld) [Volume fraction] 34.8 % Low 37.0 - 47.0 % AO Workflow SS Hemoglobin (Bld) [Mass/Vol] 11.8 G/dL Low 12.0 - 16.0 G/dL AO Workflow SS Lymphocyte, Absolute 2.1 103/mcL Normal 0.8 - 3 .9 10^3/mcL AO Workflow SS Lymphocytes/100 WBC (Bld) 17.4 % Normal 10.0 - 50.0 % AO Workflow SS MCH (RBC) [Entitic mass] 31.2 pg Normal 27.0 - 31.2 pg AO Workflow SS MCHC 33.8 G/dL Normal 33.0 - 37.0 G/dL AO Workflow SS MCV (RBC) [Entitic vol] 92.5 fL Normal 80.0 - 94.0 fL AO Workflow SS Monocyte, Absolute 0.9 103/mcL Normal 0.2 - 1.0 10^3/mcL AO Workflow SS Monocytes/100 WBC (Bld) 7.3 % Normal 1.7 - 13.0 % AO Workflow SS Neutrophil, Absolute 9.0 103/mcL High 2.9 - 6 .2 10^3/mcL AO Workflow SS Neutrophils/100 WBC (Bld) 73.6 % Normal 37.0 - 80.0 % AO Workflow SS Platelet mean volume (Bld) [Entitic vol] 10.0 fL Normal 7.4 - 10.4 fL AO Workflow SS Platelets (Bld) [#/Vol] 153 103/mcL Normal 130 - 400 10^3/mcL AO Workflow SS Potassium [Moles/Vol] 4.2 mmol/L Normal 3.5 - 5.1 mmol/L AO ADM SS RBC (Bld) [#/Vol] 3.76 106/mcL Low 4.20 - 5.4 0 10^6/mcL AO Workflow SS Sodium [Moles/Vol] 139 mmol/L Normal 136 - 145 mmol/L AO ADM SS Urea nitrogen [Mass/Vol] 10 mg/dL Normal 7 - 18 mg/dL AO ADM SS Urea nitrogen/Creatinine [Mass ratio] 8 ratio Normal 7 - 27 ratio AO ADM SS WBC (Bld) [#/Vol] 12.2 103/mcL High 4.6 - 10.8 10^3/mcL AO Workflow SS ABO/Rh (Gel)on 12-07-2023 ABO/Rh Interp Negative Invalid Interpretation Code [facility] ([place] Comment on above: Performed By: #### A DELMER, ABOGEL #### [place] [address] [address] ABS (Gel)on 12-07-2023 ABSC Interp (Gel) Negative Normal [facility]ending [facility] ([place]) Comment on above: Performed By: #### A DELMER, ABOGEL #### [address] [address] LABORATORYOrdered By: Syd Acuna on 12-07-2023 ABO and Rh group Nom (Bld) Blood group O Rh(D) negative Invalid Interpretation Code AO BB Auto SS Blood group antibody screen Ql Negative ABSC (12/07/23 11:24 AM) Normal AO BB Auto SS HCG ( test) Ql Negative (12/07/23 11:24 AM) Normal AO Manual Urine SS test (u) int Not detected Invalid Interpretation Code AO Manual Urine SS PREGUon 12-07-2023 HCG ( test) Ql (U) Negative Normal Pending [facility] ([place] Comment on above: Performed By: #### P REGU #### [address] [address] test (u) int Not detected Invalid Interpretation Code Pending [facility] ([place]) Comment on above: Performed By: #### P REGU #### [place] [address] .Auto Diffon 12-02-2023 Basophil, Absolute 0.1 10 3/mcL Normal 0.0-0.2 [facility] ([place]) Comment on above: Performed By: #### B MP, GFR, MDW, CBC, TROPHS, ANEU, ADIFF #### [address] [address] Basophils/100 WBC (Bld) 1.1 % Normal 0.0-2.5 [facility] ([place]) Comment on above: Performed By: #### B MP, GFR, MDW, CBC, TROPHS, ANEU, ADIFF #### [address] [address] Eosinophil, Absolute 0.1 10 3/mcL Normal 0.0-0.4 [facility] ([place]) Comment on above: Performed By: #### B MP, GFR, MDW, CBC, TROPHS, ANEU, ADIFF #### [address] [address] Eosinophils/100 WBC (Bld) 2.0 % Normal 0.0-7.0 [facility] ([place]) Comment on above: Performed By: #### B MP, GFR, MDW, CBC, TROPHS, ANEU, ADIFF #### [address] [address] Lymphocyte, Absolute 1.8 10 3/mcL Normal 0.8-3.9 [facility] ([place]) Comment on above: Performed By: #### B MP, GFR, MDW, CBC, TROPHS, ANEU, ADIFF #### [address] [address] Lymphocytes/100 WBC (Bld) 27.1 % Normal 10.0-50.0 [facility] ([place]) Comment on above: Performed By: #### B MP, GFR, MDW, CBC, TROPHS, ANEU, ADIFF #### [address] [address] Monocyte, Absolute 0.4 10 3/mcL Normal 0.2-1.0 [facility] ([place]) Comment on above: Performed By: #### B MP, GFR, MDW, CBC, TROPHS, ANEU, ADIFF #### [address] [address] Monocytes/100 WBC (Bld) 6.1 % Normal 1.7-13.0 A [facility] ([place]) Comment on above: Performed By: #### B MP, GFR, MDW, CBC, TROPHS, ANEU, ADIFF #### [address] [address] Neutrophils/100 WBC (Bld) 63.7 % Normal 37.0-80.0 [facility]ending [facility] ([place] Comment on above: Performed By: #### B MP, GFR, MDW, CBC, TROPHS, ANEU, ADIFF #### [address] [address] .GFRon 12-02-2023 GFR 92 ml/min/1.73sqm Normal Pending [facility] To [facility] ([place]) Comment on above: Result Comment: GFR Population mean for , Non- Americans Ages 20-29 = 116 mL/min/1.73 sq.m. Ages 30-39 = 107 mL/min/1.73 sq.m. Ages 40-49 = 99 mL/min/1.73 sq.m. Ages 50-59 = 93 mL/min/1.73 sq.m. Ages 60-69 = 85 mL/min/1.73 sq.m. Ages 70+ = 75 mL/min/1.73 sq.m. Chronic Kidney Disease: Less than 60 mL/min/1.73 square meters End Stage Renal Disease: Less than 15 mL/min/1.73 square meters Performed By: #### B MP, GFR, MDW, CBC, TROPHS, ANEU, ADIFF #### [address] [address] GFR Non- 76 ml/min/1.73sqm Normal Pending [facility] ([place]) Comment on above: Result Comment: GFR Population mean for , Non- Americans Ages 20-29 = 116 mL/min/1.73 sq.m. Ages 30-39 = 107 mL/min/1.73 sq.m. Ages 40-49 = 99 mL/min/1.73 sq.m. Ages 50-59 = 93 mL/min/1.73 sq.m. Ages 60-69 = 85 mL/min/1.73 sq.m. Ages 70+ = 75 mL/min/1.73 sq.m. Chronic Kidney Disease: Less than 60 mL/min/1.73 square meters End Stage Renal Disease: Less than 15 mL/min/1.73 square meters Performed By: #### B MP, GFR, MDW, CBC, TROPHS, ANEU, ADIFF #### [address] [address] .MDWon 12-02-2023 Monocyte Distribution Width 18.02 Normal 0.00-20.00 Pending [facility] To [facility] ([place]) Comment on above: Result Comment: For ED adult patients suspected of sepsis, MDW<=20.0 does not rule out sepsis or risk of sepsis Performed By: #### B MP, GFR, MDW, CBC, TROPHS, ANEU, ADIFF #### [address] [address] .NEUABSon 12-02-2023 Neutrophil, Absolute 4.3 10 3/mcL Normal 2.9-6.2 [facility] ([place]) Comment on above: Performed By: #### B MP, GFR, MDW, CBC, TROPHS, ANEU, ADIFF #### [address] [address] BMPon 12-02-2023 BUN/Creatinine Ratio 19 ratio Normal 7-27 [facility] ([place]) Comment on above: Performed By: #### B MP, GFR, MDW, CBC, TROPHS, ANEU, ADIFF #### [address] [address] Calcium [Mass/Vol] 8.6 mg/dL Normal 8.4-10.2 [facility] ([place]) Comment on above: Performed By: #### B MP, GFR, MDW, CBC, TROPHS, ANEU, ADIFF #### [address] [address] Chloride [Moles/Vol] 108 mmol/L High 98-107 [facility] ([place]) Comment on above: Performed By: #### B MP, GFR, MDW, CBC, TROPHS, ANEU, ADIFF #### [address] [address] CO2 [Moles/Vol] 19 mmol/L Low 22-29 Pending Sale To [facility] ([place]) Comment on above: Performed By: #### B MP, GFR, MDW, CBC, TROPHS, ANEU, ADIFF #### [address] [address] Creatinine [Mass/Vol] 0.83 mg/dL Normal 0.55-1.02 [facility] ([place]) Comment on above: Performed By: #### B MP, GFR, MDW, CBC, TROPHS, ANEU, ADIFF #### [address] [address] Electrolyte Balance 13.0 mEq/L Normal 4.0-15.0 [facility] ([place]) Comment on above: Performed By: #### B MP, GFR, MDW, CBC, TROPHS, ANEU, ADIFF #### [address] [address] Glucose [Mass/Vol] 104 mg/dL Normal 70-105 [facility] ([place]) Comment on above: Performed By: #### B MP, GFR, MDW, CBC, TROPHS, ANEU, ADIFF #### [address] [address] Potassium [Moles/Vol] 3.6 mmol/L Normal 3.5-5.1 [facility] ([place]) Comment on above: Performed By: #### B MP, GFR, MDW, CBC, TROPHS, ANEU, ADIFF #### [place] [address] Sodium [Moles/Vol] 140 mmol/L Normal 136-145 [facility] ([place]) Comment on above: Performed By: #### B MP, GFR, MDW, CBC, TROPHS, ANEU, ADIFF #### [address] [address] Urea nitrogen [Mass/Vol] 16 mg/dL Normal 7-18 Pending Sale To [facility] ([place]) Comment on above: Performed By: #### B MP, GFR, MDW, CBC, TROPHS, ANEU, ADIFF #### [address] [address] CBCon 12-02-2023 Erythrocyte distribution width (RBC) [Ratio] 12.9 % Normal 11.5-14.5 Pending Sale To [facility] ([place]) Comment on above: Performed By: #### B MP, GFR, MDW, CBC, TROPHS, ANEU, ADIFF #### [address] [address] Hematocrit (Bld) [Volume fraction] 41.3 % Normal 37.0-47.0 Pending [facility] To [facility] ([place]) Comment on above: Performed By: #### B MP, GFR, MDW, CBC, TROPHS, ANEU, ADIFF #### [place] [id number] Hgb 13.8 G/dL Normal 12.0-16.0 Pending [facility] To [facility] ([place]) Comment on above: Performed By: #### B MP, GFR, MDW, CBC, TROPHS, ANEU, ADIFF #### [address] [address] MCH (RBC) [Entitic mass] 31.1 pg Normal 27.0-31.2 Pending [facility] To [facility] ([place] Comment on above: Performed By: #### B MP, GFR, MDW, CBC, TROPHS, ANEU, ADIFF #### [address] [address] MCHC 33.4 G/dL Normal 33.0-37.0 Pending [facility] To [facility] ([place] Comment on above: Performed By: #### B MP, GFR, MDW, CBC, TROPHS, ANEU, ADIFF #### [address] [address] MCV (RBC) [Entitic vol] 93.2 fL Normal 80.0-94.0 [facility] ([place]) Comment on above: Performed By: #### B MP, GFR, MDW, CBC, TROPHS, ANEU, ADIFF #### [address] [address] Platelet 172 10 3/mcL Normal 130-400 Pending [facility] To [facility] ([place]) Comment on above: Performed By: #### B MP, GFR, MDW, CBC, TROPHS, ANEU, ADIFF #### [address] [address] Platelet mean volume (Bld) [Entitic vol] 9.5 fL Normal 7.4-10.4 Pending [facility] To [facility] ([place] Comment on above: Performed By: #### B MP, GFR, MDW, CBC, TROPHS, ANEU, ADIFF #### [address] [address] RBC 4.43 10 6/mcL Normal 4.20-5.40 Pending [facility] To [facility] ([place]) Comment on above: Performed By: #### B MP, GFR, MDW, CBC, TROPHS, ANEU, ADIFF #### [place] [id number] [place], [place] [address] WBC 6.7 10 3/mcL Normal 4.6-10.8 Pending [facility] To [facility] ([place]) Comment on above: Performed By: #### B MP, GFR, MDW, CBC, TROPHS, ANEU, ADIFF #### [place] [id number] [place], [place] [address] LABORATORYOrdered By: SYSTEM SYSTEM on 12-02-2023 Basophil, Absolute 0.1 103/mcL Normal 0.0 - 0.2 10^3/mcL AO Workflow SS Basophils/100 WBC (Bld) 1.1 % Normal 0.0 - 2.5 % AO Workflow SS Calcium [Mass/Vol] 8.6 mg/dL Normal 8.4 - 10. 2 mg/dL AO ADM SS Chloride [Moles/Vol] 108 mmol/L High 98 - 10 7 mmol/L AO ADM SS CO2 [Moles/Vol] 19 mmol/L Low 22 - 29 mmol/L AO ADM SS Creatinine [Mass/Vol] 0.83 mg/dL Normal 0.55 - 1.02 mg/dL AO ADM SS Electrolyte Balance 13.0 mEq/L Normal 4.0 - 15 .0 mEq/L AO ADM SS Eosinophil, Absolute 0.1 103/mcL Normal 0.0 - 0 .4 10^3/mcL AO Workflow SS Eosinophils/100 WBC (Bld) 2.0 % Normal 0.0 - 7.0 % AO Workflow SS Erythrocyte distribution width (RBC) [Ratio] 12.9 % Normal 11.5 - 14.5 % AO Workflow SS GFR/1.73 sq M.predicted among blacks MDRD (S/P/Bld) [Vol rate/Area] 92 ml/min/1.73sqm Invalid Interpretation Code AO Chemistry S Comment on above: Interpretive Data: GFR Population mean for , Non- Americans Ages 20-29 = 116 mL/min/1.73 sq.m. Ages 30-39 = 107 mL/min/1.73 sq.m. Ages 40-49 = 99 mL/min/1.73 sq.m. Ages 50-59 = 93 mL/min/1.73 sq.m. Ages 60-69 = 85 mL/min/1.73 sq.m. Ages 70+ = 75 mL/min/1.73 sq.m. Chronic Kidney Disease: Less than 60 mL/min/1.73 square meters End Stage Renal Disease: Less than 15 mL/min/1.73 square meters GFR/1.73 sq M.predicted among non-blacks MDRD (S/P/Bld) [Vol rate/Area] 76 ml/min/1.73sqm Invalid Interpretation Code AO Chemistry S Comment on above: Interpretive Data: GFR Population mean for , Non- Americans Ages 20-29 = 116 mL/min/1.73 sq.m. Ages 30-39 = 107 mL/min/1.73 sq.m. Ages 40-49 = 99 mL/min/1.73 sq.m. Ages 50-59 = 93 mL/min/1.73 sq.m. Ages 60-69 = 85 mL/min/1.73 sq.m. Ages 70+ = 75 mL/min/1.73 sq.m. Chronic Kidney Disease: Less than 60 mL/min/1.73 square meters End Stage Renal Disease: Less than 15 mL/min/1.73 square meters Glucose [Mass/Vol] 104 mg/dL Normal 70 - 105 mg/dL AO ADM SS Hematocrit (Bld) [Volume fraction] 41.3 % Normal 37.0 - 47.0 % AO Workflow SS Hemoglobin (Bld) [Mass/Vol] 13.8 G/dL Normal 12.0 - 16.0 G/dL AO Workflow SS Lymphocyte, Absolute 1.8 103/mcL Normal 0.8 - 3 .9 10^3/mcL AO Workflow SS Lymphocytes/100 WBC (Bld) 27.1 % Normal 10.0 - 50.0 % AO Workflow SS MCH (RBC) [Entitic mass] 31.1 pg Normal 27.0 - 31.2 pg AO Workflow SS MCHC 33.4 G/dL Normal 33.0 - 37.0 G/dL AO Workflow SS MCV (RBC) [Entitic vol] 93.2 fL Normal 80.0 - 94.0 fL AO Workflow SS Monocyte distribution width Auto (Bld) [Entitic vol] 18.02 1 Normal 0.00 - 20.00 AO Workflow SS Comment on above: Result Comment: For ED adult patients suspected of sepsis, MDW<=20.0 does not rule out sepsis or risk of sepsis Monocyte, Absolute 0.4 103/mcL Normal 0.2 - 1.0 10^3/mcL AO Workflow SS Monocytes/100 WBC (Bld) 6.1 % Normal 1.7 - 13.0 % AO Workflow SS Neutrophil, Absolute 4.3 103/mcL Normal 2.9 - 6 .2 10^3/mcL AO Workflow SS Neutrophils/100 WBC (Bld) 63.7 % Normal 37.0 - 80.0 % AO Workflow SS Platelet mean volume (Bld) [Entitic vol] 9.5 fL Normal 7.4 - 10.4 fL AO Workflow SS Platelets (Bld) [#/Vol] 172 103/mcL Normal 130 - 400 10^3/mcL AO Workflow SS Potassium [Moles/Vol] 3.6 mmol/L Normal 3.5 - 5.1 mmol/L AO ADM SS RBC (Bld) [#/Vol] 4.43 106/mcL Normal 4.20 - 5.4 0 10^6/mcL AO Workflow SS Sodium [Moles/Vol] 140 mmol/L Normal 136 - 145 mmol/L AO ADM SS Troponin I.cardiac DL <= 0.01 ng/mL [Mass/Vol] 4 ng/L Normal 0 - 51 ng/L AO ADM SS Comment on above: Interpretive Data: H igh Sensitive Troponin I Reference Ranges: Female: 0-51 ng/L Male: 0-76 ng/L Testing performed on Dimension EXL using a homogeneous sandwich chemiluminescent immunoassay based on [employer] technology. Urea nitrogen [Mass/Vol] 16 mg/dL Normal 7 - 18 mg/dL AO ADM SS Urea nitrogen/Creatinine [Mass ratio] 19 ratio Normal 7 - 27 ratio AO ADM SS WBC (Bld) [#/Vol] 6.7 103/mcL Normal 4.6 - 10.8 10^3/mcL AO Workflow SS TROPHSon 12-02-2023 High Sensitivity Troponin I 4 ng/L Normal 0-51 Pending [facility] To [facility] ([place]) Comment on above: Result Comment: High Sensitive Troponin I Reference Ranges: Female: 0-51 ng/L Male: 0-76 ng/L Testing performed on Dimension EXL using a homogeneous sandwich chemiluminescent immunoassay based on [employer] technology. Performed By: #### B MP, GFR, MDW, CBC, TROPHS, ANEU, ADIFF #### [place] [id number] XR CHEST 1 VIEWon 12-02-2023 XR CHEST 1 VIEW ORIGINAL EXAMINATION: ONE XRAY VIEW OF THE CHEST 12/02/2023 12:57 pm COMPARISON: 08/01/2023 HISTORY: ORDERING SYSTEM PROVIDED HISTORY: Reason for Exam: chest pain FINDINGS: The lungs are without acute focal process. There is no effusion or pneumothorax. The cardiomediastinal silhouette is without acute process. The osseous structures are without acute process. IMPRESSION: No acute process. Interpreted by: Haris Gilbert DO Preliminary Report By: Haris Gilbert DO Electronically signed By Haris Gilbert DO Dictated Date: 12/02/2023 1:00:10 PM Prelim Date: 12/02/2023 1:00:40 PM Sign Date: 12/02/2023 1:00:40 PM Ordering Provider: HARIS Vaughan Pending Sale To [facility] ([place]) .Auto Diffon 11-29-2023 Basophil, Absolute 0.1 10 3/mcL Normal 0.0-0.2 [facility] ([place]) Comment on above: Performed By: #### B MP, GFR, MDW, CBC, TROPHS, ANEU, ADIFF #### [address] [address] Basophils/100 WBC (Bld) 1.0 % Normal 0.0-2.5 A [facility] ([place]) Comment on above: Performed By: #### B MP, GFR, MDW, CBC, TROPHS, ANEU, ADIFF #### [address] [address] Eosinophil, Absolute 0.2 10 3/mcL Normal 0.0-0.4 [facility] ([place]) Comment on above: Performed By: #### B MP, GFR, MDW, CBC, TROPHS, ANEU, ADIFF #### [address] [address] Eosinophils/100 WBC (Bld) 2.3 % Normal 0.0-7.0 Pending Sale To [facility] ([place] Comment on above: Performed By: #### B MP, GFR, MDW, CBC, TROPHS, ANEU, ADIFF #### [address] [address] Lymphocyte, Absolute 2.2 10 3/mcL Normal 0.8-3.9 [facility] ([place]) Comment on above: Performed By: #### B MP, GFR, MDW, CBC, TROPHS, ANEU, ADIFF #### [address] [address] Lymphocytes/100 WBC (Bld) 32.7 % Normal 10.0-50.0 Pending Sale To [facility] ([place] Comment on above: Performed By: #### B MP, GFR, MDW, CBC, TROPHS, ANEU, ADIFF #### [address] [address] Monocyte, Absolute 0.5 10 3/mcL Normal 0.2-1.0 [facility] ([place]) Comment on above: Performed By: #### B MP, GFR, MDW, CBC, TROPHS, ANEU, ADIFF #### [address] [address] Monocytes/100 WBC (Bld) 7.4 % Normal 1.7-13.0 [facility] ([place]) Comment on above: Performed By: #### B MP, GFR, MDW, CBC, TROPHS, ANEU, ADIFF #### [address] [address] Neutrophils/100 WBC (Bld) 56.6 % Normal 37.0-80.0 Pending Sale To [facility] ([place] Comment on above: Performed By: #### B MP, GFR, MDW, CBC, TROPHS, ANEU, ADIFF #### [address] [address] .NEUABSon 11-29-2023 Neutrophil, Absolute 3.9 10 3/mcL Normal 2.9-6.2 [facility] ([place]) Comment on above: Performed By: #### B MP, GFR, MDW, CBC, TROPHS, ANEU, ADIFF #### [address] [address] ABO/Rh (Gel)on 11-29-2023 ABO/Rh Interp Negative Invalid Interpretation Code Pending [facility] To [facility] ([place] Comment on above: Performed By: #### B MP, GFR, MDW, CBC, TROPHS, ANEU, ADIFF #### [address] [address] ABS (Gel)on 11-29-2023 ABSC Interp (Gel) Negative Normal Pending Sale To [facility] ([place]) Comment on above: Performed By: #### B MP, GFR, MDW, CBC, TROPHS, ANEU, ADIFF #### [address] [address] CBCon 11-29-2023 Erythrocyte distribution width (RBC) [Ratio] 13.1 % Normal 11.5-14.5 Pending Sale To [facility] ([place] Comment on above: Order Comment: Pre-A dmission Testing Performed By: #### B MP, GFR, MDW, CBC, TROPHS, ANEU, ADIFF #### [address] [address] Hematocrit (Bld) [Volume fraction] 40.9 % Normal 37.0-47.0 Pending Sale To [facility] ([place]) Comment on above: Order Comment: Pre-A dmission Testing Performed By: #### B MP, GFR, MDW, CBC, TROPHS, ANEU, ADIFF #### [address] [address] Hgb 13.9 G/dL Normal 12.0-16.0 Pending Sale To [facility] ([place] Comment on above: Order Comment: Pre-A dmission Testing Performed By: #### B MP, GFR, MDW, CBC, TROPHS, ANEU, ADIFF #### [address] [address] MCH (RBC) [Entitic mass] 31.9 pg High 27.0-31.2 Pending Sale To [facility] ([place] Comment on above: Order Comment: Pre-A dmission Testing Performed By: #### B MP, GFR, MDW, CBC, TROPHS, ANEU, ADIFF #### [address] [address] MCHC 34.1 G/dL Normal 33.0-37.0 Pending Sale To [facility] ([place] Comment on above: Order Comment: Pre-A dmission Testing Performed By: #### B MP, GFR, MDW, CBC, TROPHS, ANEU, ADIFF #### [address] [address] MCV (RBC) [Entitic vol] 93.6 fL Normal 80.0-94.0 A [facility] ([place]) Comment on above: Order Comment: Pre-A dmission Testing Performed By: #### B MP, GFR, MDW, CBC, TROPHS, ANEU, ADIFF #### [address] [address] Platelet 162 10 3/mcL Normal 130-400 Pending Sale To [facility] ([place] Comment on above: Order Comment: Pre-A dmission Testing Performed By: #### B MP, GFR, MDW, CBC, TROPHS, ANEU, ADIFF #### [address] [address] Platelet mean volume (Bld) [Entitic vol] 10.0 fL Normal 7.4-10.4 Pending Sale To [facility] ([place] Comment on above: Order Comment: Pre-A dmission Testing Performed By: #### B MP, GFR, MDW, CBC, TROPHS, ANEU, ADIFF #### [address] [address] RBC 4.36 10 6/mcL Normal 4.20-5.40 Pending Sale To [facility] ([place] Comment on above: Order Comment: Pre-A dmission Testing Performed By: #### B MP, GFR, MDW, CBC, TROPHS, ANEU, ADIFF #### [address] [address] WBC 6.9 10 3/mcL Normal 4.6-10.8 Pending Sale To [facility] ([place] Comment on above: Order Comment: Pre-A dmission Testing Performed By: #### B MP, GFR, MDW, CBC, TROPHS, ANEU, ADIFF #### [address] [address] LABORATORYOrdered By: Mary Bond on 11-29-2023 ABO and Rh group Nom (Bld) Blood group O Rh(D) negative Invalid Interpretation Code AO BB Auto SS Blood group antibody screen Ql Negative ABSC (11/29/23 9:55 AM) Normal AO BB Auto SS LABORATORYOrdered By: SYSTEM SYSTEM on 11-29-2023 Basophil, Absolute 0.1 103/mcL Normal 0.0 - 0.2 10^3/mcL AO Workflow SS Basophils/100 WBC (Bld) 1.0 % Normal 0.0 - 2.5 % AO Workflow SS Eosinophil, Absolute 0.2 103/mcL Normal 0.0 - 0 .4 10^3/mcL AO Workflow SS Eosinophils/100 WBC (Bld) 2.3 % Normal 0.0 - 7.0 % AO Workflow SS Erythrocyte distribution width (RBC) [Ratio] 13.1 % Normal 11.5 - 14.5 % AO Workflow SS Hematocrit (Bld) [Volume fraction] 40.9 % Normal 37.0 - 47.0 % AO Workflow SS Hemoglobin (Bld) [Mass/Vol] 13.9 G/dL Normal 12.0 - 16.0 G/dL AO Workflow SS Lymphocyte, Absolute 2.2 103/mcL Normal 0.8 - 3 .9 10^3/mcL AO Workflow SS Lymphocytes/100 WBC (Bld) 32.7 % Normal 10.0 - 50.0 % AO Workflow SS MCH (RBC) [Entitic mass] 31.9 pg High 27.0 - 31.2 pg AO Workflow SS MCHC 34.1 G/dL Normal 33.0 - 37.0 G/dL AO Workflow SS MCV (RBC) [Entitic vol] 93.6 fL Normal 80.0 - 94.0 fL AO Workflow SS Monocyte, Absolute 0.5 103/mcL Normal 0.2 - 1.0 10^3/mcL AO Workflow SS Monocytes/100 WBC (Bld) 7.4 % Normal 1.7 - 13.0 % AO Workflow SS Neutrophil, Absolute 3.9 103/mcL Normal 2.9 - 6 .2 10^3/mcL AO Workflow SS Neutrophils/100 WBC (Bld) 56.6 % Normal 37.0 - 80.0 % AO Workflow SS Platelet mean volume (Bld) [Entitic vol] 10.0 fL Normal 7.4 - 10.4 fL AO Workflow SS Platelets (Bld) [#/Vol] 162 103/mcL Normal 130 - 400 10^3/mcL AO Workflow SS RBC (Bld) [#/Vol] 4.36 106/mcL Normal 4.20 - 5.4 0 10^6/mcL AO Workflow SS WBC (Bld) [#/Vol] 6.9 103/mcL Normal 4.6 - 10.8 10^3/mcL AO Workflow SS .Auto Diffon 08-01-2023 Basophil, Absolute 0.1 10 3/mcL Normal 0.0-0.2 [facility] ([place] Comment on above: Performed By: #### B MP, GFR, MDW, CBC, TROPHS, ANEU, ADIFF #### [address] [address] Basophils/100 WBC (Bld) 1.1 % Normal 0.0-2.5 A [facility] ([place]) Comment on above: Performed By: #### B MP, GFR, MDW, CBC, TROPHS, ANEU, ADIFF #### [address] [address] Eosinophil, Absolute 0.2 10 3/mcL Normal 0.0-0.4 [facility] ([place]) Comment on above: Performed By: #### B MP, GFR, MDW, CBC, TROPHS, ANEU, ADIFF #### [address] [address] Eosinophils/100 WBC (Bld) 3.6 % Normal 0.0-7.0 Pending [facility] To [facility] ([place] Comment on above: Performed By: #### B MP, GFR, MDW, CBC, TROPHS, ANEU, ADIFF #### [address] [address] Lymphocyte, Absolute 2.5 10 3/mcL Normal 0.8-3.9 [facility] ([place]) Comment on above: Performed By: #### B MP, GFR, MDW, CBC, TROPHS, ANEU, ADIFF #### [address] [address] Lymphocytes/100 WBC (Bld) 39.0 % Normal 10.0-50.0 Pending [facility] To [facility] ([place] Comment on above: Performed By: #### B MP, GFR, MDW, CBC, TROPHS, ANEU, ADIFF #### [address] [address] Monocyte, Absolute 0.4 10 3/mcL Normal 0.2-1.0 [facility] ([place]) Comment on above: Performed By: #### B MP, GFR, MDW, CBC, TROPHS, ANEU, ADIFF #### [address] [address] Monocytes/100 WBC (Bld) 6.3 % Normal 1.7-13.0 [facility] ([place]) Comment on above: Performed By: #### B MP, GFR, MDW, CBC, TROPHS, ANEU, ADIFF #### [address] [address] Neutrophils/100 WBC (Bld) 50.0 % Normal 37.0-80.0 Pending [facility] To [facility] ([place] Comment on above: Performed By: #### B MP, GFR, MDW, CBC, TROPHS, ANEU, ADIFF #### [address] [address] .GFRon 08-01-2023 GFR 98 ml/min/1.73sqm Normal Pending Sale To [facility] ([place] Comment on above: Result Comment: GFR Population mean for , Non- Americans Ages 20-29 = 116 mL/min/1.73 sq.m. Ages 30-39 = 107 mL/min/1.73 sq.m. Ages 40-49 = 99 mL/min/1.73 sq.m. Ages 50-59 = 93 mL/min/1.73 sq.m. Ages 60-69 = 85 mL/min/1.73 sq.m. Ages 70+ = 75 mL/min/1.73 sq.m. Chronic Kidney Disease: Less than 60 mL/min/1.73 square meters End Stage Renal Disease: Less than 15 mL/min/1.73 square meters Performed By: #### B MP, GFR, MDW, CBC, TROPHS, ANEU, ADIFF #### [address] [address] GFR Non- 81 ml/min/1.73sqm Normal Pending Sale To [facility] ([place] Comment on above: Result Comment: GFR Population mean for , Non- Americans Ages 20-29 = 116 mL/min/1.73 sq.m. Ages 30-39 = 107 mL/min/1.73 sq.m. Ages 40-49 = 99 mL/min/1.73 sq.m. Ages 50-59 = 93 mL/min/1.73 sq.m. Ages 60-69 = 85 mL/min/1.73 sq.m. Ages 70+ = 75 mL/min/1.73 sq.m. Chronic Kidney Disease: Less than 60 mL/min/1.73 square meters End Stage Renal Disease: Less than 15 mL/min/1.73 square meters Performed By: #### B MP, GFR, MDW, CBC, TROPHS, ANEU, ADIFF #### [address] [address] .MDWon 08-01-2023 Monocyte Distribution Width 17.02 Normal 0.00-20.00 Pending [facility] To [facility] ([place] Comment on above: Result Comment: For ED adult patients suspected of sepsis, MDW<=20.0 does not rule out sepsis or risk of sepsis Performed By: #### B MP, GFR, MDW, CBC, TROPHS, ANEU, ADIFF #### [address] [address] .NEUABSon 08-01-2023 Neutrophil, Absolute 3.2 10 3/mcL Normal 2.9-6.2 [facility] ([place]) Comment on above: Performed By: #### B MP, GFR, MDW, CBC, TROPHS, ANEU, ADIFF #### [address] [address] BMPon 08-01-2023 BUN/Creatinine Ratio 18 ratio Normal 7-27 [facility] ([place]) Comment on above: Performed By: #### B MP, GFR, MDW, CBC, TROPHS, ANEU, ADIFF #### [address] [address] Calcium [Mass/Vol] 8.6 mg/dL Normal 8.4-10.2 [facility] ([place]) Comment on above: Performed By: #### B MP, GFR, MDW, CBC, TROPHS, ANEU, ADIFF #### [address] [address] Chloride [Moles/Vol] 106 mmol/L Normal 98-107 [facility] ([place]) Comment on above: Performed By: #### B MP, GFR, MDW, CBC, TROPHS, ANEU, ADIFF #### [address] [address] CO2 [Moles/Vol] 20 mmol/L Low 22-29 Pending [facility] To [facility] ([place] Comment on above: Performed By: #### B MP, GFR, MDW, CBC, TROPHS, ANEU, ADIFF #### [address] [address] Creatinine [Mass/Vol] 0.79 mg/dL Normal 0.55-1.02 [facility] ([place]) Comment on above: Performed By: #### B MP, GFR, MDW, CBC, TROPHS, ANEU, ADIFF #### [address] [address] Electrolyte Balance 16.0 mEq/L High 4.0-15.0 [facility] ([place]) Comment on above: Performed By: #### B MP, GFR, MDW, CBC, TROPHS, ANEU, ADIFF #### [address] [address] Glucose [Mass/Vol] 97 mg/dL Normal 70-105 [facility] ([place]) Comment on above: Performed By: #### B MP, GFR, MDW, CBC, TROPHS, ANEU, ADIFF #### [address] [address] Potassium [Moles/Vol] 3.5 mmol/L Normal 3.5-5.1 [facility] ([place]) Comment on above: Performed By: #### B MP, GFR, MDW, CBC, TROPHS, ANEU, ADIFF #### [address] [address] Sodium [Moles/Vol] 142 mmol/L Normal 136-145 [facility] ([place]) Comment on above: Performed By: #### B MP, GFR, MDW, CBC, TROPHS, ANEU, ADIFF #### [address] [address] Urea nitrogen [Mass/Vol] 14 mg/dL Normal 7-18 Pending [facility] To [facility] ([place] Comment on above: Performed By: #### B MP, GFR, MDW, CBC, TROPHS, ANEU, ADIFF #### [address] [address] CBCon 08-01-2023 Erythrocyte distribution width (RBC) [Ratio] 12.7 % Normal 11.5-14.5 Pending [facility] To [facility] ([place] Comment on above: Performed By: #### B MP, GFR, MDW, CBC, TROPHS, ANEU, ADIFF #### [address] [address] Hematocrit (Bld) [Volume fraction] 37.3 % Normal 37.0-47.0 Pending [facility] To [facility] ([place] Comment on above: Performed By: #### B MP, GFR, MDW, CBC, TROPHS, ANEU, ADIFF #### [address] [address] Hgb 12.8 G/dL Normal 12.0-16.0 Pending [facility] To [facility] ([place] Comment on above: Performed By: #### B MP, GFR, MDW, CBC, TROPHS, ANEU, ADIFF #### [address] [address] MCH (RBC) [Entitic mass] 31.3 pg High 27.0-31.2 Pending [facility] To [facility] ([place] Comment on above: Performed By: #### B MP, GFR, MDW, CBC, TROPHS, ANEU, ADIFF #### [address] [address] MCHC 34.2 G/dL Normal 33.0-37.0 Pending [facility] To [facility] ([place] Comment on above: Performed By: #### B MP, GFR, MDW, CBC, TROPHS, ANEU, ADIFF #### [address] [address] MCV (RBC) [Entitic vol] 91.3 fL Normal 80.0-94.0 [facility] ([place]) Comment on above: Performed By: #### B MP, GFR, MDW, CBC, TROPHS, ANEU, ADIFF #### [address] [address] Platelet 208 10 3/mcL Normal 130-400 Pending [facility] To [facility] ([place] Comment on above: Performed By: #### B MP, GFR, MDW, CBC, TROPHS, ANEU, ADIFF #### [address] [address] Platelet mean volume (Bld) [Entitic vol] 9.3 fL Normal 7.4-10.4 Pending [facility] To [facility] ([place] Comment on above: Performed By: #### B MP, GFR, MDW, CBC, TROPHS, ANEU, ADIFF #### [address] [address] RBC 4.09 10 6/mcL Low 4.20-5.40 Pending [facility] To [facility] ([place] Comment on above: Performed By: #### B MP, GFR, MDW, CBC, TROPHS, ANEU, ADIFF #### [address] [address] WBC 6.5 10 3/mcL Normal 4.6-10.8 [facility]) Comment on above: Performed By: #### B MP, GFR, MDW, CBC, TROPHS, ANEU, ADIFF #### [address] [address] LABORATORYOrdered By: SYSTEM SYSTEM on 08-01-2023 Basophil, Absolute 0.1 103/mcL Normal 0.0 - 0.2 10^3/mcL AO Workflow SS Basophils/100 WBC (Bld) 1.1 % Normal 0.0 - 2.5 % AO Workflow SS Calcium [Mass/Vol] 8.6 mg/dL Normal 8.4 - 10. 2 mg/dL AO ADM SS Chloride [Moles/Vol] 106 mmol/L Normal 98 - 10 7 mmol/L AO ADM SS CO2 [Moles/Vol] 20 mmol/L Low 22 - 29 mmol/L AO ADM SS Creatinine [Mass/Vol] 0.79 mg/dL Normal 0.55 - 1.02 mg/dL AO ADM SS Electrolyte Balance 16.0 mEq/L High 4.0 - 15 .0 mEq/L AO ADM SS Eosinophil, Absolute 0.2 103/mcL Normal 0.0 - 0 .4 10^3/mcL AO Workflow SS Eosinophils/100 WBC (Bld) 3.6 % Normal 0.0 - 7.0 % AO Workflow SS Erythrocyte distribution width (RBC) [Ratio] 12.7 % Normal 11.5 - 14.5 % AO Workflow SS GFR/1.73 sq M.predicted among blacks MDRD (S/P/Bld) [Vol rate/Area] 98 ml/min/1.73sqm Invalid Interpretation Code AO Chemistry S Comment on above: Interpretive Data: GFR Population mean for , Non- Americans Ages 20-29 = 116 mL/min/1.73 sq.m. Ages 30-39 = 107 mL/min/1.73 sq.m. Ages 40-49 = 99 mL/min/1.73 sq.m. Ages 50-59 = 93 mL/min/1.73 sq.m. Ages 60-69 = 85 mL/min/1.73 sq.m. Ages 70+ = 75 mL/min/1.73 sq.m. Chronic Kidney Disease: Less than 60 mL/min/1.73 square meters End Stage Renal Disease: Less than 15 mL/min/1.73 square meters GFR/1.73 sq M.predicted among non-blacks MDRD (S/P/Bld) [Vol rate/Area] 81 ml/min/1.73sqm Invalid Interpretation Code AO Chemistry S Comment on above: Interpretive Data: GFR Population mean for , Non- Americans Ages 20-29 = 116 mL/min/1.73 sq.m. Ages 30-39 = 107 mL/min/1.73 sq.m. Ages 40-49 = 99 mL/min/1.73 sq.m. Ages 50-59 = 93 mL/min/1.73 sq.m. Ages 60-69 = 85 mL/min/1.73 sq.m. Ages 70+ = 75 mL/min/1.73 sq.m. Chronic Kidney Disease: Less than 60 mL/min/1.73 square meters End Stage Renal Disease: Less than 15 mL/min/1.73 square meters Glucose [Mass/Vol] 97 mg/dL Normal 70 - 105 mg/dL AO ADM SS Hematocrit (Bld) [Volume fraction] 37.3 % Normal 37.0 - 47.0 % AO Workflow SS Hemoglobin (Bld) [Mass/Vol] 12.8 G/dL Normal 12.0 - 16.0 G/dL AO Workflow SS Lymphocyte, Absolute 2.5 103/mcL Normal 0.8 - 3 .9 10^3/mcL AO Workflow SS Lymphocytes/100 WBC (Bld) 39.0 % Normal 10.0 - 50.0 % AO Workflow SS MCH (RBC) [Entitic mass] 31.3 pg High 27.0 - 31.2 pg AO Workflow SS MCHC 34.2 G/dL Normal 33.0 - 37.0 G/dL AO Workflow SS MCV (RBC) [Entitic vol] 91.3 fL Normal 80.0 - 94.0 fL AO Workflow SS Monocyte distribution width Auto (Bld) [Entitic vol] 17.02 1 Normal 0.00 - 20.00 AO Workflow SS Comment on above: Result Comment: For ED adult patients suspected of sepsis, MDW<=20.0 does not rule out sepsis or risk of sepsis Monocyte, Absolute 0.4 103/mcL Normal 0.2 - 1.0 10^3/mcL AO Workflow SS Monocytes/100 WBC (Bld) 6.3 % Normal 1.7 - 13.0 % AO Workflow SS Neutrophil, Absolute 3.2 103/mcL Normal 2.9 - 6 .2 10^3/mcL AO Workflow SS Neutrophils/100 WBC (Bld) 50.0 % Normal 37.0 - 80.0 % AO Workflow SS Platelet mean volume (Bld) [Entitic vol] 9.3 fL Normal 7.4 - 10.4 fL AO Workflow SS Platelets (Bld) [#/Vol] 208 103/mcL Normal 130 - 400 10^3/mcL AO Workflow SS Potassium [Moles/Vol] 3.5 mmol/L Normal 3.5 - 5.1 mmol/L AO ADM SS RBC (Bld) [#/Vol] 4.09 106/mcL Low 4.20 - 5.4 0 10^6/mcL AO Workflow SS Sodium [Moles/Vol] 142 mmol/L Normal 136 - 145 mmol/L AO ADM SS Troponin I.cardiac DL <= 0.01 ng/mL [Mass/Vol] 5.7 ng/L Normal 0.0 - 51.4 ng/L AO ADM SS Urea nitrogen [Mass/Vol] 14 mg/dL Normal 7 - 18 mg/dL AO ADM SS Urea nitrogen/Creatinine [Mass ratio] 18 ratio Normal 7 - 27 ratio AO ADM SS WBC (Bld) [#/Vol] 6.5 103/mcL Normal 4.6 - 10.8 10^3/mcL AO Workflow SS TROPHSon 08-01-2023 Troponin I High Sensitivity 5.7 ng/L Normal 0.0-51.4 Pending [facility] To [facility] ([place]) Comment on above: Performed By: #### B MP, GFR, MDW, CBC, TROPHS, ANEU, ADIFF #### [address] [address] XR CHEST 1 VIEWon 08-01-2023 XR CHEST 1 VIEW ORIGINAL EXAMINATION: ONE XRAY VIEW OF THE CHEST08/01/2023 4:57 pm COMPARISON: 06/04/2022 HISTORY: ORDERING SYSTEM PROVIDED HISTORY: Reason for Exam: chest pain FINDINGS: The cardiomediastinal silhouette is unchanged. No focal pulmonary consolidation, pneumothorax, or large pleural effusion visualized. No acute osseous abnormalities identified. IMPRESSION: No acute radiographic abnormality identified. I have personally reviewed the images of this examination and agree with the resident's findings and interpretation. Interpreted by: Jose Luis Melchor Preliminary Report By: Jerrell Harkins Electronically signed By Jose Luis Melchor Dictated Date: 08/01/2023 5:01:14 PM Prelim Date: 08/01/2023 5:06:56 PM Sign Date: 08/01/2023 5:11:51 PM Ordering Provider: JOVON Vaughan Pending [facility] To [facility] ([place] XR ABDOMEN APon 06-12-2023 XR ABDOMEN AP ORIGINAL EXAMINATION: ONE SUPINE XRAY VIEW(S) OF THE ABDOMEN 06/12/2023 9:51 am COMPARISON: None. HISTORY: ORDERING SYSTEM PROVIDED HISTORY: Reason for Exam: chronic constipation FINDINGS: The bowel gas pattern is within normal limits. No evidence of free intraperitoneal air or obstruction. No pathologic calcifications are identified. Tubal ligation clip seen overlying the left hemipelvis. IMPRESSION: No acute intra-abdominal process. Interpreted by: Saul Granados MD Preliminary Report By: Saul Granados MD Electronically signed By Saul Granados MD Dictated Date: 06/12/2023 10:11:34 AM Prelim Date: 06/12/2023 10:11:54 AM Sign Date: 06/12/2023 10:11:54 AM Ordering Provider: DENISE HADLEY [facility] ([place]) Final Surgical Pathology Rep [facility] 05-29-2023 Final Surgical Pathology Report . Pathology Reports Accession: Collected Date/Time: Received Date/Time: Pathologist: [id number] 05/25/2023 13:53 EST 05/26/2023 10:21 EST DEVON TEE MD Final Surgical Pathology Report DIAGNOSIS: BILATERAL FALLOPIAN TUBES AND RIGHT OVARY: - BILATERAL FALLOPIAN TUBES: FIBROUS ADHESIONS ON TUBAL SURFACE - RIGHT OVARY: TUBO-OVARIAN ADHESIONS; HEMORRHAGIC LUTEAL CYST AND FOLLICULAR CYSTS - NEGATIVE FOR MALIGNANCY CLINICAL INFORMATION: PROCEDURE: LAPAROSCOPIC RIGHT SALPINGO-OOPHORECTOMY, LEFT SALPINGECTOMY, DILATION AND CURETTAGE, HYSTEROSCOPY, NOVASURE ABLATION PREOPERATIVE DIAGNOSIS: RIGHT OVARIAN CYST, PELVIC PAIN, DYMENORRHEA POSTOPERATIVE DIAGNOSIS: RIGHT OVARIAN CYST, PELVIC PAIN, DYMENORRHEA SPECIMEN: A BILATERAL FALLOPIAN TUBES AND RIGHT OVARY GROSS DESCRIPTION: A. Received in formalin, labeled with the patients name, Case # [id number], and bilateral fallopian tubes and right ovary are bilateral fallopian tubes and right ovary combined weighing 15 g, portion of right fallopian tube measures 2 x 0.6 cm. Right ovary is rivera-pink cystic-appearing measuring 3.5 x 2.7 x 2.2 cm. The left fallopian tube measures 7.5 x 0.5 cm. RS -3, A1-A2-right fallopian tube and right ovary, A3 -left fallopian tube Dictated by CYDNEY AKBAR MICROSCOPIC DESCRIPTION: The microscopic examination is performed, except in the case of Gross Only. Electronically Signed by Pathology Report verified by [facility] DEVON TEE Sign out Date: 05/29/2023 11:50 Performing Lab: [facility], [address] [place] [address] Pathology Dept Disclaimer If ancillary studies were utilized, the following Laboratory Developed Test (LDT) disclaimer will apply: Under CLIA requirements, [facility] is qualified to perform high complexity testing. For all ancillary stains, positive and negative controls stain appropriately. Performance characteristics of immunohistochemical and chromogenic in-situ hybridization tests have been determined by [facility]. These tests are used for clinical purposes, They should not be regarded as investigational or for research. Normal Pending [facility] To [facility] ([place]) Gel ABOon 05-25-2023 ABO/Rh Interp Negative Invalid Interpretation Code [facility]) Comment on above: Performed By: #### B MP, GFR, MDW, CBC, TROPHS, ANEU, ADIFF #### [place] [address] Gel ABSon 05-25-2023 Antibody Screen Gel Negative Normal [facility] ([place]) Comment on above: Performed By: #### B MP, GFR, MDW, CBC, TROPHS, ANEU, ADIFF #### [place] [id number] PREGUon 05-25-2023 HCG ( test) Ql (U) Negative Normal Pending [facility] To [facility] ([place] Comment on above: Performed By: #### B MP, GFR, MDW, CBC, TROPHS, ANEU, ADIFF #### [place] [address] test (u) int Not detected Invalid Interpretation Code Pending Sale To [facility] ([place] Comment on above: Performed By: #### B MP, GFR, MDW, CBC, TROPHS, ANEU, ADIFF #### [address] [address] .Auto Diffon 05-16-2023 Basophil, Absolute 0.1 10 3/mcL Normal 0.0-0.2 [facility]) Comment on above: Performed By: #### B MP, GFR, MDW, CBC, TROPHS, ANEU, ADIFF #### [address] [address] Basophils/100 WBC (Bld) 0.8 % Normal 0.0-2.5 A formerly [facility] ([place]) Comment on above: Performed By: #### B MP, GFR, MDW, CBC, TROPHS, ANEU, ADIFF #### [address] [address] Eosinophil, Absolute 0.2 10 3/mcL Normal 0.0-0.4 [facility] ([place]) Comment on above: Performed By: #### B MP, GFR, MDW, CBC, TROPHS, ANEU, ADIFF #### [address] [address] Eosinophils/100 WBC (Bld) 3.0 % Normal 0.0-7.0 Pending Sale To [facility] ([place]) Comment on above: Performed By: #### B MP, GFR, MDW, CBC, TROPHS, ANEU, ADIFF #### [address] [address] Lymphocyte, Absolute 2.5 10 3/mcL Normal 0.8-3.9 [facility] ([place]) Comment on above: Performed By: #### B MP, GFR, MDW, CBC, TROPHS, ANEU, ADIFF #### [address] [address] Lymphocytes/100 WBC (Bld) 33.4 % Normal 10.0-50.0 Pending [facility] To [facility] ([place] Comment on above: Performed By: #### B MP, GFR, MDW, CBC, TROPHS, ANEU, ADIFF #### [address] [address] Monocyte, Absolute 0.5 10 3/mcL Normal 0.2-1.0 [facility] ([place]) Comment on above: Performed By: #### B MP, GFR, MDW, CBC, TROPHS, ANEU, ADIFF #### [address] [address] Monocytes/100 WBC (Bld) 6.4 % Normal 1.7-13.0 A [facility] ([place]) Comment on above: Performed By: #### B MP, GFR, MDW, CBC, TROPHS, ANEU, ADIFF #### [address] [address] Neutrophils/100 WBC (Bld) 56.4 % Normal 37.0-80.0 Pending [facility] To [facility] ([place] Comment on above: Performed By: #### B MP, GFR, MDW, CBC, TROPHS, ANEU, ADIFF #### [address] [address] .NEUABSon 05-16-2023 Neutrophil, Absolute 4.3 10 3/mcL Normal 2.9-6.2 [facility] ([place]) Comment on above: Performed By: #### B MP, GFR, MDW, CBC, TROPHS, ANEU, ADIFF #### [address] [address] CBCon 05-16-2023 Erythrocyte distribution width (RBC) [Ratio] 12.6 % Normal 11.5-14.5 Pending [facility] To [facility] ([place] Comment on above: Order Comment: Pre-A dmission Testing Performed By: #### B MP, GFR, MDW, CBC, TROPHS, ANEU, ADIFF #### [address] [address] Hematocrit (Bld) [Volume fraction] 40.9 % Normal 37.0-47.0 Pending [facility] To [facility] ([place] Comment on above: Order Comment: Pre-A dmission Testing Performed By: #### B MP, GFR, MDW, CBC, TROPHS, ANEU, ADIFF #### [address] [address] Hgb 13.7 G/dL Normal 12.0-16.0 Pending [facility] To [facility] ([place] Comment on above: Order Comment: Pre-A dmission Testing Performed By: #### B MP, GFR, MDW, CBC, TROPHS, ANEU, ADIFF #### [address] [address] MCH (RBC) [Entitic mass] 30.6 pg Normal 27.0-31.2 Pending [facility] To [facility] ([place] Comment on above: Order Comment: Pre-A dmission Testing Performed By: #### B MP, GFR, MDW, CBC, TROPHS, ANEU, ADIFF #### [address] [address] MCHC 33.5 G/dL Normal 33.0-37.0 Pending [facility] To [facility] [place] Comment on above: Order Comment: Pre-A dmission Testing Performed By: #### B MP, GFR, MDW, CBC, TROPHS, ANEU, ADIFF #### [address] [address] MCV (RBC) [Entitic vol] 91.3 fL Normal 80.0-94.0 A [facility] ([place]) Comment on above: Order Comment: Pre-A dmission Testing Performed By: #### B MP, GFR, MDW, CBC, TROPHS, ANEU, ADIFF #### [address] [address] Platelet 187 10 3/mcL Normal 130-400 Pending [facility] To [facility] ([place] Comment on above: Order Comment: Pre-A dmission Testing Performed By: #### B MP, GFR, MDW, CBC, TROPHS, ANEU, ADIFF #### [address] [address] Platelet mean volume (Bld) [Entitic vol] 10.3 fL Normal 7.4-10.4 Pending [facility] To [facility] [place] Comment on above: Order Comment: Pre-A dmission Testing Performed By: #### B MP, GFR, MDW, CBC, TROPHS, ANEU, ADIFF #### [address] [address] RBC 4.48 10 6/mcL Normal 4.20-5.40 Pending [facility] To [facility] ([place] Comment on above: Order Comment: Pre-A dmission Testing Performed By: #### B MP, GFR, MDW, CBC, TROPHS, ANEU, ADIFF #### [address] [address] WBC 7.6 10 3/mcL Normal 4.6-10.8 Pending [facility] To [facility] ([place] Comment on above: Order Comment: Pre-A dmission Testing Performed By: #### B RICHARD, GFR, W, CBC, TROPHS, ANEU, ADIFF #### [place] [address] [place], [place] [address] Gel ABOon 05-16-2023 ABO/Rh Interp Negative Invalid Interpretation Code Pending [facility] To [facility] ([place] Comment on above: Performed By: #### B MP, GFR, MDW, CBC, TROPHS, ANEU, ADIFF #### [place] [address] [address] [place], [place] [address] Gel ABSon 05-16-2023 Antibody Screen Gel Negative Normal [facility] ([place]) Comment on above: Performed By: #### B MP, GFR, MDW, CBC, TROPHS, ANEU, ADIFF #### [place] [address] [place], [place] [address] LABORATORYOrdered By: Lorie Reed on 05-16-2023 ABO/Rh Interp Negative Invalid Interpretation Code AO BB SS Antibody Screen Gel Negative ABSC (05/16/23 11:36 AM) Normal AO BB SS LABORATORYOrdered By: SYSTEM SYSTEM on 05-16-2023 Basophil, Absolute 0.1 103/mcL Normal 0.0 - 0.2 10^3/mcL AO Workflow SS Basophils/100 WBC (Bld) 0.8 % Normal 0.0 - 2.5 % AO Workflow SS Eosinophil, Absolute 0.2 103/mcL Normal 0.0 - 0 .4 10^3/mcL AO Workflow SS Eosinophils/100 WBC (Bld) 3.0 % Normal 0.0 - 7.0 % AO Workflow SS Erythrocyte distribution width (RBC) [Ratio] 12.6 % Normal 11.5 - 14.5 % AO Workflow SS Hematocrit (Bld) [Volume fraction] 40.9 % Normal 37.0 - 47.0 % AO Workflow SS Hemoglobin (Bld) [Mass/Vol] 13.7 G/dL Normal 12.0 - 16.0 G/dL AO Workflow SS Lymphocyte, Absolute 2.5 103/mcL Normal 0.8 - 3 .9 10^3/mcL AO Workflow SS Lymphocytes/100 WBC (Bld) 33.4 % Normal 10.0 - 50.0 % AO Workflow SS MCH (RBC) [Entitic mass] 30.6 pg Normal 27.0 - 31.2 pg AO Workflow SS MCHC 33.5 G/dL Normal 33.0 - 37.0 G/dL AO Workflow SS MCV (RBC) [Entitic vol] 91.3 fL Normal 80.0 - 94.0 fL AO Workflow SS Monocyte, Absolute 0.5 103/mcL Normal 0.2 - 1.0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 Systolic Blood Pressure Non-Invasive 102 mm[Hg] DR JERRELL MANUEL MD [facility] 08-16-2024 16:24-0500 Diastolic Blood Pressure Non-Invasive 84 mm[Hg] DR JERRELL MANUEL MD [facility] 08-16-2024 16:24-0500 Heart rate 92 /min DR JERRELL MANUEL MD [facility] 08-16-2024 16:24-0500 Respiratory rate 18 /min DR JERRELL MANUEL MD [facility] 08-16-2024 16:24-0500 Systolic Blood Pressure Non-Invasive 108 mm[Hg] DR JERRELL MANUEL MD [facility] 08-16-2024 15:52-0500 Body height 162.[address] JERRELL MANUEL MD [facility] 08-16-2024 15:52-0500 Body temperature 98.06 [degF] DR JERRELL MANUEL MD [facility] 08-16-2024 15:52-0500 Body weight 68.[address] JERRELL MANUEL MD [facility] 08-16-2024 15:52-0500 Heart rate 89 /min DR JERRELL MANUEL MD [facility] 08-14-2024 11:19-0500 Body height 162.6 cm Jm Childress MD Work Phone: [facility] 08-14-2024 11:19-0500 Body mass index (BMI) [Ratio] 25.73 kg/m2 Jm Childress MD Work Phone: [facility] 08-14-2024 11:19-0500 Body weight 68 kg Jm Childress MD Work Phone: [facility] 08-14-2024 11:19-0500 Diastolic blood pressure 61 mm[Hg] Jm Childress MD Work Phone: [facility] 08-14-2024 11:19-0500 Heart rate 82 /min Jm Childress MD Work Phone: [facility] 08-14-2024 11:19-0500 SaO2% (BldA) [Mass fraction] 99 % Jm Childress MD Work Phone: [facility] 08-14-2024 11:19-0500 Systolic blood pressure 96 mm[Hg] Jm Childress MD Work Phone: [facility] 04-05-2024 16:29-0400 Body height 162.6 cm Karen Saul PA-C Work Phone: [facility] 04-05-2024 16:29-0400 Body mass index (BMI) [Ratio] 24.29 kg/m2 Karen Saul PA-C Work Phone: [facility] 04-05-2024 16:29-0400 Body weight 64.2 kg Karen Saul PA-C Work Phone: [facility] 04-05-2024 16:29-0400 Diastolic blood pressure 62 mm[Hg] Karen Saul PA-C Work Phone: [facility] 04-05-2024 16:29-0400 Heart rate 68 /min Karen Saul PA-C Work Phone: [facility] 04-05-2024 16:29-0400 SaO2% (BldA) [Mass fraction] 99 % Karen Saul PA-C Work Phone: [facility] 04-05-2024 16:29-0400 Systolic blood pressure 102 mm[Hg] Karen Saul PA-C Work Phone: [facility] 04-01-2024 07:59-0400 Body mass index (BMI) [Ratio] 24.85 kg/m2 Jovon Wilder Jr., MD Work Phone: [facility] 04-01-2024 07:59-0400 Body weight 65.68 kg Jovon Wilder Jr., MD Work Phone: [facility] 04-01-2024 07:59-0400 Diastolic blood pressure 61 mm[Hg] Jovon Wilder Jr., MD Work Phone: [facility] 04-01-2024 07:59-0400 Heart rate 63 /min Jovon Wilder Jr., MD Work Phone: [facility] 04-01-2024 07:59-0400 SaO2% (BldA) [Mass fraction] 99 % Jovon Wilder Jr., MD Work Phone: [facility] 04-01-2024 07:59-0400 Systolic blood pressure 92 mm[Hg] Jovon Wilder Jr., MD Work Phone: [facility] 03-25-2024 15:41-0400 Body height 162.6 cm Michele Gandhi MD Work Phone: [facility] 03-25-2024 15:41-0400 Body mass index (BMI) [Ratio] 24.55 kg/m2 Michele Gandhi MD Work Phone: [facility] 03-25-2024 15:41-0400 Body weight 64.86 kg Michele Gandhi MD Work Phone: [facility] 03-25-2024 15:41-0400 Diastolic blood pressure 59 mm[Hg] Michele Gandhi MD Work Phone: [facility] 03-25-2024 15:41-0400 Heart rate 79 /min Michele Gandhi MD Work Phone: [facility] 03-25-2024 15:41-0400 SaO2% (BldA) [Mass fraction] 97 % Michele Gandhi MD Work Phone: [facility] 03-25-2024 15:41-0400 Systolic blood pressure 106 mm[Hg] Michele Gandhi MD Work Phone: [facility] 03-19-2024 09:14-0400 Body height 161.3 cm Bowen Hritz [employer] Work Phone: [facility] 03-19-2024 09:14-0400 Body mass index (BMI) [Ratio] 23.71 kg/m2 Bowen Hritz [employer] Work Phone: [facility] 03-19-2024 09:14-0400 Body weight 61.69 kg Bowen Hritz [employer] Work Phone: [facility] 03-19-2024 09:14-0400 Diastolic blood pressure 72 mm[Hg] Bowen Hritz [employer]MER[employer] Work Phone: [facility] 03-19-2024 09:14-0400 Heart rate 71 /min Bowen Hritz [employer]MER[employer] Work Phone: [facility] 03-19-2024 09:14-0400 Systolic blood pressure 122 mm[Hg] Bowen Hritz [employer]MER[employer] Work Phone: [facility] 01-31-2024 15:12-0400 Body height 162.6 cm JOVON CAZARES MD [facility] 01-31-2024 15:12-0400 Body temperature 98.24 [degF] JOVON CAZARES MD [facility] 01-31-2024 15:12-0400 Body weight 56.9 kg JOVON CAZARES MD [facility] 01-31-2024 15:12-0400 Diastolic Blood Pressure Non-Invasive 65 mm[Hg] JOVON CAZARES MD [facility] 01-31-2024 15:12-0400 Heart rate 105 /min JOVON CAZARES MD [facility] 01-31-2024 15:12-0400 Respiratory rate 20 /min JOVON CAZARES MD [facility] 01-31-2024 15:12-0400 Systolic Blood Pressure Non-Invasive 95 mm[Hg] JOVON CAZARES MD [facility] 01-04-2024 14:20-0400 Body height 161.4 cm Karen Saul PA-C Work Phone: [facility] 01-04-2024 14:20-0400 Body mass index (BMI) [Ratio] 23.5 kg/m2 Karen Salazarer PA-C Work Phone: [facility] 01-04-2024 14:20-0400 Body weight 61.2 kg Karen Salazarer PA-C Work Phone: [facility] 12-19-2023 11:01-0400 Body height 161.4 cm Jm Childress MD Work Phone: [facility] 12-19-2023 11:01-0400 Body mass index (BMI) [Ratio] 23.11 kg/m2 Jm Childress MD Work Phone: [facility] 12-19-2023 11:01-0400 Body weight 60.2 kg Jm Childress MD Work Phone: [facility] 12-19-2023 11:01-0400 Diastolic blood pressure 67 mm[Hg] Jm Childress MD Work Phone: [facility] 12-19-2023 11:01-0400 Heart rate 83 /min Jm Childress MD Work Phone: [facility] 12-19-2023 11:01-0400 SaO2% (BldA) [Mass fraction] 99 % Jm Childress MD Work Phone: [facility] 12-19-2023 11:01-0400 Systolic blood pressure 102 mm[Hg] Jm Childress MD Work Phone: [facility] 12-08-2023 11:36-0400 Blood Pressure Location SORAYA KAPPER [employer] [facility] 12-08-2023 11:36-0400 Blood Pressure Method SORAYA KAPPER [employer] [facility] 12-08-2023 11:36-0400 Body temperature 98.06 [degF] SORAYA KAPPER [employer] [facility] 12-08-2023 11:36-0400 Diastolic Blood Pressure Non-Invasive 56 mm[Hg] SORAYA KAPPER [employer] [facility] 12-08-2023 11:36-0400 Heart rate 69 /min SORAYA KAPPER [employer] [facility] 12-08-2023 11:36-0400 Heart rate 67 /min SORAYA KAPPER [employer] [facility] 12-08-2023 11:36-0400 Respiratory rate 18 /min SORAYA KAPPER [employer] [facility] 12-08-2023 11:36-0400 Systolic Blood Pressure Non-Invasive 92 mm[Hg] SORAYA KAPPER [employer] [facility] 12-08-2023 08:00-0400 Body temperature 98.42 [degF] SORAYA KAPPER [employer] [facility] 12-08-2023 08:00-0400 Diastolic Blood Pressure Non-Invasive 62 mm[Hg] SORAYA GRAYSONER [employer] [facility] 12-08-2023 08:00-0400 Heart rate 64 /min SORAYA KAPPER [employer] [facility] 12-08-2023 08:00-0400 Heart rate 62 /min SORAYA KAPPER [employer] [facility] 12-08-2023 08:00-0400 Systolic Blood Pressure Non-Invasive 101 mm[Hg] SORAYA KAPPER [employer] [facility] 12-08-2023 04:26-0400 Blood Pressure Location SORAYA KAPPER [employer] [facility] 12-08-2023 04:26-0400 Blood Pressure Method SORAYA KAPPER [employer] [facility] 12-08-2023 04:26-0400 Diastolic Blood Pressure Non-Invasive 64 mm[Hg] SORAYA KAPPER [employer] [facility] 12-08-2023 04:26-0400 Systolic Blood Pressure Non-Invasive 98 mm[Hg] SORAYA KAPPER [employer] [facility] 12-08-2023 03:31-0400 Body temperature 98.24 [degF] SORAYA KAPPER [employer] [facility] 12-08-2023 03:31-0400 Heart rate 67 /min SORAYA KAPPER [employer] [facility] 12-08-2023 03:31-0400 Reason For Taking VItal Signs SORAYA KAPPER [employer] [facility] 12-08-2023 03:31-0400 Respiratory rate 16 /min SORAYA KAPPER [employer] [facility] 12-07-2023 23:03-0400 Reason For Taking VItal Signs SORAYA KAPPER [employer] [facility] 12-07-2023 16:31-0400 Heart rate 73 /min SORAYA KAPPER [employer] [facility] 12-07-2023 16:23-0400 Body height 162.6 cm SORAYA KAPPER [employer] [facility] 12-07-2023 16:23-0400 Body weight 59.1 kg SORAYA KAPPER [employer] [facility] 12-07-2023 16:23-0400 Body weight 22.35 kg/m2 SORAYA KAPPER [employer] [facility] 12-07-2023 16:03-0400 Heart rate 68 /min SORAYA KAPPER [employer] [facility] 12-07-2023 15:45-0400 Heart rate 66 /min SORAYA KAPPER [employer] [facility] 12-07-2023 15:45-0400 Heart rate 65 /min SORAYA KAPPER [employer] [facility] 12-07-2023 15:02-0400 Body temperature 97.34 [degF] SORAYA KAPPER [employer] [facility] 12-07-2023 14:55-0400 Respiratory Rate - Anes 11 br/min SORAYA KAPPER [employer] [facility] 12-07-2023 14:50-0400 Respiratory Rate - Anes 14 br/min SORAYA KAPPER [employer] [facility] 12-07-2023 14:45-0400 Body temperature 96.8 [degF] SORAYA KAPPER [employer] [facility] 12-07-2023 14:45-0400 Respiratory Rate - Anes 10 br/min SORAYA KAPPER [employer] [facility] 12-07-2023 14:15-0400 Body temperature 96.8 [degF] SORAYA KAPPER [employer] [facility] 12-07-2023 11:32-0400 Body height 162.6 cm SORAYA KAPPER SPECIAL[employer]MER[employer] [facility] 12-07-2023 11:32-0400 Body temperature 98.24 [degF] SORAYA KAPPER SPECIALTY TRIMMER-GEOGRAPHY HEAD [facility] 12-07-2023 11:32-0400 Body weight 59.1 kg SORAYA KAPPER SPECIALTY TRIMMER-GEOGRAPHY HEAD [facility] 12-02-2023 13:09-0400 Diastolic Blood Pressure Non-Invasive 57 mm[Hg] CONNIE SAM DO [facility] 12-02-2023 13:09-0400 Heart rate 100 /min CONNIE LIBAIPatrick [facility] 12-02-2023 13:09-0400 Mean blood pressure 67 mm[Hg] CONNIE REZAT DO [facility] 12-02-2023 13:09-0400 Reason For Taking VItal Signs CONNIE REZAT DO [facility] 12-02-2023 13:09-0400 Respiratory rate 16 /min CONNIE REZAT DO [facility] 12-02-2023 13:09-0400 Systolic Blood Pressure Non-Invasive 119 mm[Hg] CONNIE REZAT DO [facility] 12-02-2023 12:16-0400 Blood Pressure Location CONNIE REZAT DO [facility] 12-02-2023 12:16-0400 Body temperature 98.06 [degF] CONNIE REZAT DO [facility] 12-02-2023 12:16-0400 Diastolic Blood Pressure Non-Invasive 71 mm[Hg] CONNIE REZAT DO [facility] 12-02-2023 12:16-0400 Heart rate 86 /min CONNIE REZAT DO [facility] 12-02-2023 12:16-0400 Respiratory rate 16 /min CONNIE REZAT DO [facility] 12-02-2023 12:16-0400 Systolic Blood Pressure Non-Invasive 122 mm[Hg] CONNIE REZAT DO [facility] 11-29-2023 09:33-0400 Blood Pressure Cuff Size DENISE HADLEY MD [facility] 11-29-2023 09:33-0400 Blood Pressure Location DENISE HADLEY MD [facility] 11-29-2023 09:33-0400 Blood Pressure Method DENISE HADLEY MD [facility] 11-29-2023 09:33-0400 Body height 162.6 cm DENISE HADLEY MD [facility] 11-29-2023 09:33-0400 Body weight 59.1 kg DENISE HADLEY MD [facility] 11-29-2023 09:33-0400 Body weight 22.35 kg/m2 DENISE HADLEY MD [facility] 11-29-2023 09:33-0400 Diastolic Blood Pressure Non-Invasive 75 mm[Hg] DENISE HADLEY MD [facility] 11-29-2023 09:33-0400 Heart rate 83 /min DENISE HADLEY MD [facility] 11-29-2023 09:33-0400 Systolic Blood Pressure Non-Invasive 113 mm[Hg] DENISE HADLEY MD [facility] 10-04-2023 09:20-0400 Body height 162.6 cm Jud Denisha SPECIALTY TRIMMER.GEOGRAPHY HEAD Work Phone: [facility] 10-04-2023 09:20-0400 Body weight 64.1 kg Jud Denisha SPECIALTY TRIMMER.GEOGRAPHY HEAD Work Phone: [facility] 10-04-2023 09:20-0400 Diastolic blood pressure 69 mm[Hg] Jud Denisha SPECIALTY TRIMMER.GEOGRAPHY HEAD Work Phone: [facility] 10-04-2023 09:20-0400 Heart rate 75 /min Jud Denisha SPECIALTY TRIMMER.GEOGRAPHY HEAD Work Phone: [facility] 10-04-2023 09:20-0400 Systolic blood pressure 110 mm[Hg] Jud Denisha SPECIALTY TRIMMER.GEOGRAPHY HEAD Work Phone: [facility] 08-01-2023 17:38-0500 Diastolic Blood Pressure Non-Invasive 78 mm[Hg] JOVON CAZARES MD [facility] 08-01-2023 17:38-0500 Heart rate 89 /min JOVON CAZARES MD [facility] 08-01-2023 17:38-0500 Reason For Taking VItal Signs JOVON CAZARES MD [facility] 08-01-2023 17:38-0500 Respiratory rate 16 /min JOVON CAZARES MD [facility] 08-01-2023 17:38-0500 Systolic Blood Pressure Non-Invasive 118 mm[Hg] JOVON CAZARES MD [facility] 08-01-2023 16:12-0500 Body temperature 98.96 [degF] JOVON CAZARES MD [facility] 08-01-2023 16:12-0500 Diastolic Blood Pressure Non-Invasive 82 mm[Hg] JOVON CAZARES MD [facility] 08-01-2023 16:12-0500 Heart rate 92 /min JOVON CAZARES MD [facility] 08-01-2023 16:12-0500 Respiratory rate 16 /min JOVON CAZARES MD [facility] 08-01-2023 16:12-0500 Systolic Blood Pressure Non-Invasive 102 mm[Hg] JOVON CAZARES MD [facility] 06-07-2023 11:12-0500 Body height 162.6 cm Breanne Bowden PA-C Work Phone: [facility] 06-07-2023 11:12-0500 Body weight 62.14 kg Breanne Sarmientoka PA-C Work Phone: [facility] 06-07-2023 11:12-0500 Diastolic blood pressure 68 mm[Hg] Breanne Kalka PA-C Work Phone: [facility] 06-07-2023 11:12-0500 Heart rate 84 /min Breanne Kalka PA-C Work Phone: [facility] 06-07-2023 11:12-0500 Systolic blood pressure 110 mm[Hg] Breanne Sarmientoka PA-C Work Phone: [facility] 05-16-2023 11:16-0500 Body height 162.6 cm DENISE HADLEY MD [facility] 05-16-2023 11:16-0500 Body weight 61 kg DENISE HADLEY MD [facility] 04-11-2023 20:52-0400 Diastolic blood pressure 46 mm[Hg] [facility] 04-11-2023 20:52-0400 Heart rate 65 /min [facility] 04-11-2023 20:52-0400 Respiratory rate 14 /min [facility] 04-11-2023 20:52-0400 SaO2% (BldA) [Mass fraction] 99 % [facility] 04-11-2023 20:52-0400 Systolic blood pressure 123 mm[Hg] [facility] 04-11-2023 18:27-0400 Body height 162.56 cm [facility] 04-11-2023 18:27-0400 Body mass index (BMI) [Ratio] 24.7 kg/m2 [facility] 04-11-2023 18:27-0400 Body temperature 97.8 [degF] [facility] 04-11-2023 18:27-0400 Body weight 65.31 kg [facility] 03-10-2023 11:31-0400 Body height 162.6 cm Karen Saul PA-C Work Phone: [facility] 03-10-2023 11:31-0400 Body weight 66.68 kg Karen Salazarer PA-C Work Phone: [facility] 03-10-2023 11:31-0400 Diastolic blood pressure 79 mm[Hg] Karen Salazarer PA-C Work Phone: [facility] 03-10-2023 11:31-0400 Heart rate 80 /min Karen Salazarer PA-C Work Phone: [facility] 03-10-2023 11:31-0400 SaO2% (BldA) [Mass fraction] 98 % Karen Salazarer PA-C Work Phone: [facility] 03-10-2023 11:31-0400 Systolic blood pressure 114 mm[Hg] Karen Salazarer PA-C Work Phone: [facility] 03-08-2023 08:01-0400 Body height 162.6 cm Breanne Kalka PA-C Work Phone: [facility] 03-08-2023 08:01-0400 Body weight 65.32 kg Breanne Kalka PA-C Work Phone: [facility] 03-08-2023 08:01-0400 Diastolic blood pressure 72 mm[Hg] Breanne Kalka PA-C Work Phone: [facility] 03-08-2023 08:01-0400 Heart rate 88 /min Breanen Kalka PA-C Work Phone: [facility] 03-08-2023 08:01-0400 Systolic blood pressure 112 mm[Hg] Breanne Kalka PA-C Work Phone: [facility] 03-01-2023 17:33-0400 Blood Pressure Cuff Size JOEY REED MD [facility] 03-01-2023 17:33-0400 Blood Pressure Location JOEY REED MD [facility] 03-01-2023 17:33-0400 Blood Pressure Method JOEY REED MD [facility] 03-01-2023 17:33-0400 Body height 162.6 cm JOEY REED MD [facility] 03-01-2023 17:33-0400 Body temperature 97.88 [degF] JOEY REED MD [facility] 03-01-2023 17:33-0400 Body weight 63.6 kg JOEY REED MD [facility] 03-01-2023 17:33-0400 Diastolic Blood Pressure Non-Invasive 72 1 JOEY REED MD [facility] 03-01-2023 17:33-0400 Heart rate 100 /min JOEY REED MD [facility] 03-01-2023 17:33-0400 Respiratory rate 18 /min JOEY REED MD [facility] 03-01-2023 17:33-0400 Systolic Blood Pressure Non-Invasive 110 1 JOEY REED MD [facility] 02-25-2023 17:28-0400 Body temperature 98.24 [degF] DR JEANNINE DELGADO DO [facility] 02-25-2023 17:28-0400 Diastolic Blood Pressure Non-Invasive [address] JEANNINE DELGADO DO [facility] 02-25-2023 17:28-0400 Heart rate 97 /min DR JEANNINE DELGADO DO [facility] 02-25-2023 17:28-0400 Respiratory rate 16 /min DR JEANNINE DELGADO DO [facility] 02-25-2023 17:28-0400 Systolic Blood Pressure Non-Invasive [address] JEANNINE DELGADO DO [facility] 01-26-2023 11:04-0400 Body weight 65.77 kg Micheline Corinna SPECIALTY TRIMMER.GEOGRAPHY HEAD Work Phone: [facility] 01-26-2023 11:04-0400 Diastolic blood pressure 60 mm[Hg] Micheline Ketchikan SPECIALTY TRIMMER.GEOGRAPHY HEAD Work Phone: [facility] 01-26-2023 11:04-0400 Systolic blood pressure 102 mm[Hg] Micheline Corinna SPECIALTY TRIMMER.GEOGRAPHY HEAD Work Phone: [facility] 12-15-2022 10:56-0400 Body height 162.6 cm Karen Salazarer PA-C Work Phone: [facility] 12-15-2022 10:56-0400 Body weight 67.59 kg Karen Salazarer PA-C Work Phone: [facility] 12-15-2022 10:56-0400 Diastolic blood pressure 68 mm[Hg] Karen Salazarer PA-C Work Phone: [facility] 12-15-2022 10:56-0400 Heart rate 81 /min Karen Salazarer PA-C Work Phone: [facility] 12-15-2022 10:56-0400 SaO2% (BldA) [Mass fraction] 100 % Karen Salazarer PA-C Work Phone: [facility] 12-15-2022 10:56-0400 Systolic blood pressure 102 mm[Hg] Karen Salazarer PA-C Work Phone: [facility] 08-18-2022 15:53-0500 Body height 162.6 cm Karen Salazarer PA-C Work Phone: [facility] 08-18-2022 15:53-0500 Body weight 69.85 kg Karen Salazarer PA-C Work Phone: [facility] 08-18-2022 15:53-0500 Diastolic blood pressure 67 mm[Hg] Karen Salazarer PA-C Work Phone: [facility] 08-18-2022 15:53-0500 Heart rate 84 /min Karen Salazarer PA-C Work Phone: [facility] 08-18-2022 15:53-0500 Respiratory rate 98 /min Karen Salazarer PA-C Work Phone: [facility] 08-18-2022 15:53-0500 Systolic blood pressure 108 mm[Hg] Karen Salazarer PA-C Work Phone: [facility] 08-17-2022 05:20-0500 Diastolic blood pressure 64 mm[Hg] [facility] 08-17-2022 05:20-0500 Heart rate 68 /min [facility] 08-17-2022 05:20-0500 Respiratory rate 26 /min [facility] 08-17-2022 05:20-0500 SaO2% (BldA) [Mass fraction] 98 % [facility] 08-17-2022 05:20-0500 Systolic blood pressure 91 mm[Hg] [facility] 08-17-2022 03:19-0500 Body height 162.56 cm [facility] 08-17-2022 03:19-0500 Body mass index (BMI) [Ratio] 27.2 kg/m2 [facility] 08-17-2022 03:19-0500 Body temperature 98.2 [degF] [facility] 08-17-2022 03:19-0500 Body weight 72 kg [facility] 08-04-2022 11:00-0500 Blood Pressure Cuff Size DR JERRELL MANUEL MD [facility] 08-04-2022 11:00-[address] JERRELL MANUEL MD [facility] 08-04-2022 11:00-[address] JERRELL MANUEL MD [facility] 08-04-2022 11:00-0500 Body height 162.[address] JERRELL MANUEL MD [facility] 08-04-2022 11:00-0500 Body temperature 99.32 [degF] DR JERRELL MANUEL MD [facility] 08-04-2022 11:00-0500 Body weight 69.[address] JERRELL MANUEL MD [facility] 08-04-2022 11:00-0500 Diastolic Blood Pressure Non-Invasive [address] JERRELL MANUEL MD [facility] 08-04-2022 11:00-0500 Heart rate 106 /min DR JERRELL MANUEL MD [facility] 08-04-2022 11:00-0500 Respiratory rate 19 /min DR JERRELL MANUEL MD [facility] 08-04-2022 11:00-0500 Systolic Blood Pressure Non-Invasive [address] JERRELL MANUEL MD [facility] 08-03-2022 03:06-0500 Body height 162.6 cm Sleep Main Work Phone: [facility] 08-03-2022 03:06-0500 Body weight 68.5 kg Sleep Main Work Phone: [facility] 06-08-2022 09:49-0500 Body height 162.6 cm Carmen Acuna APRN.CNP Work Phone: [facility] 06-08-2022 09:49-0500 Body weight 68.49 kg Carmen Acuna APRN.GEOGRAPHY HEAD Work Phone: [facility] 06-08-2022 09:49-0500 Diastolic blood pressure 60 mm[Hg] Carmen Acuna APRN.GEOGRAPHY HEAD Work Phone: [facility] 06-08-2022 09:49-0500 Systolic blood pressure 100 mm[Hg] Carmen Acuna APRN.GEOGRAPHY HEAD Work Phone: [facility] 06-04-2022 17:15-0500 Body temperature 98.24 [degF] MOUSTAPHA GUNN MD [facility] 06-04-2022 17:15-0500 Diastolic Blood Pressure Non-Invasive 71 1 MOUSTAPHA GUNN MD [facility] 06-04-2022 17:15-0500 Heart rate 97 /min MOUSTAPHA GUNN MD [facility] 06-04-2022 17:15-0500 Systolic Blood Pressure Non-Invasive 115 1 MOUSTAPHA GUNN MD [facility] 03-10-2022 13:32-0400 Body weight 69.4 kg Lorraine Ruiz MD Work Phone: [facility] 03-10-2022 13:32-0400 Diastolic blood pressure 64 mm[Hg] Lorraine Ruiz MD Work Phone: [facility] 03-10-2022 13:32-0400 Systolic blood pressure 118 mm[Hg] Lorraine Ruiz MD Work Phone: [facility] 10-25-2021 15:37-0400 Body height 162.6 cm Rashmi Castañeda APRN.GEOGRAPHY HEAD Work Phone: [facility] 10-25-2021 15:37-0400 Body weight 72.12 kg Rashmi Castañeda APRN.GEOGRAPHY HEAD Work Phone: [facility] 10-25-2021 15:37-0400 Diastolic blood pressure 58 mm[Hg] Rashmi Maddy SPECIALTY TRIMMER.GEOGRAPHY HEAD Work Phone: [facility] 10-25-2021 15:37-0400 Heart rate 100 /min Rashmi Maddy SPECIALTY TRIMMER.GEOGRAPHY HEAD Work Phone: [facility] 10-25-2021 15:37-0400 Respiratory rate 20 /min Rashmi Maddy SPECIALTY TRIMMER.GEOGRAPHY HEAD Work Phone: [facility] 10-25-2021 15:37-0400 Systolic blood pressure 110 mm[Hg] Rashmi Maddy SPECIALTY TRIMMER.GEOGRAPHY HEAD Work Phone: [facility] 06-15-2021 19:53-0500 Diastolic blood pressure 82 mm[Hg] ANGELLA BURT MD [facility] 06-15-2021 19:53-0500 Heart rate 80 /min ANGELLA BURT MD [facility] 06-15-2021 19:53-0500 Respiratory rate 16 /min ANGELLA BURT MD [facility] 06-15-2021 19:53-0500 Systolic blood pressure 115 mm[Hg] ANGELLA BURT MD [facility] 06-15-2021 18:36-0500 Diastolic blood pressure 71 mm[Hg] ANGELLA BURT MD [facility] 06-15-2021 18:36-0500 Heart rate 83 /min ANGELLA BURT MD [facility] 06-15-2021 18:36-0500 Mean blood pressure 83 mm[Hg] ANGELLA BURT MD [facility] 06-15-2021 18:36-0500 Respiratory rate 16 /min ANGELLA BURT MD [facility] 06-15-2021 18:36-0500 Systolic blood pressure 108 mm[Hg] ANGELLA BURT MD [facility] 06-15-2021 18:02-0500 Heart rate 82 /min ANGELLA BURT MD [facility] 06-15-2021 18:02-0500 Respiratory rate 16 /min ANGELLA BUTR MD [facility] Encounters Encounter Date Encounter Type Care Provider Facility Start: 02-04-2025 ambulatory Jasbir Childress Facility :[facility] Start: 01-15-2025 ambulatory Destini Phillipsi ty:[facility] Start: 01-01-2025 End: 01-01-2025 Telephone encounter Jm Childress MD Work Phone: [facility] Comment on above: Received Outside [facility] Records ([facility] imaging ) Start: 01-01-2025 End: 01-01-[address] 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 Jasbir Childress MD Work Phone: -[facility] Start: 11-27-2024 End: 11-27-2024 Patient encounter procedure Destini MCCAULEY -[facility] Work Phone: Start: 11-27-2024 End: 11-27-[address] Jasbir Childress MD Work Phone: [facility] Work Phone: Start: 11-11-2024 End: 11-11-2024 Telephone encounter Giovana Kramer PA-C Work Phone: Neurology Comment on above: Appointment (Inappro priate provider) Start: 11-10-2024 End: 11-10-2024 Emergency department patient visit DR JERRELL MANUEL MD [facility] Start: 10-31-2024 End: 11-11-2024 Refill Karen Saul PA-C Work Phone: Neurology Comment on above: Refill Request; Insu clary Authorization Start: 10-14-2024 End: 10-14-2024 Patient encounter procedure Abiola Pope MD Work Phone: [facility] Start: 10-11-2024 End: 10-14-2024 Follow-up encounter Jm Childress MD Work Phone: [facility] Start: 10-11-2024 End: 10-11-2024 Telephone encounter Jm Childress MD Work Phone: [facility] Start: 10-10-2024 End: 10-10-2024 ambulatory JM CHILDRESS Facility:[facility] Start: 09-24-2024 End: 09-24-2024 Telephone encounter Marta Ellington RN Cardiology Comment on above: Appointment (Left me ssage on voicemail that tilt table test will be cancelled per Karen Saul PA-C. Patient had tilt test in May 2024) Start: 09-23-2024 End: 09-23-2024 Telephone encounter Marta Ellington RN Cardiology Comment on above: Appointment Start: 09-15-2024 End: 09-17-2024 Refill Jm Childress MD Work Phone: [facility] Comment on above: Refill Request Start: 09-04-2024 End: 09-04-2024 ambulatory JM CHILDRESS Facility:[facility] Start: 09-04-2024 End: 09-04-2024 Patient encounter procedure Breanne Bowden PA-C Work Phone: [facility] [place] Comment on above: Chronic constipation (Primary Dx) Start: 09-03-2024 End: 09-03-2024 Patient encounter procedure [facility] [place] [facility] Work Phone: [facility] [place] Comment on above: Shortness of breath (Primary Dx) Start: 09-03-2024 End: 09-03-2024 ambulatory JM CHILDRESS [facility] 01 Comment on above: Spirometry Start: 08-16-2024 End: 08-16-2024 Emergency department patient visit DR JERRELL MANUEL MD [facility] Start: 08-14-2024 End: 08-14-2024 ambulatory JM CHILDRESS Facility:[facility] Start: 08-14-2024 End: 08-14-2024 Office outpatient visit 15 minutes Jm Childress MD Work Phone: [facility] Comment on above: SOB (shortness of br eath) (Primary Dx); History of 2019 novel coronavirus disease (COVID-19); Surgical menopause Start: 08-06-2024 End: 08-06-2024 Telemedicine consultation with patient Jovon Wilder Jr., MD Work Phone: Sleep Start: 08-06-2024 End: 08-11-2024 Telephone encounter Jovon Wilder MD Work Phone: Neurology Comment on above: Appointment Insomnia, unspecifie d type (Primary Dx); Shift work sleep disorder; Depression, unspecified depression type; Cervicalgia; Radiculopathy, cervical region; Intractable headache, unspecified chronicity pattern, unspecified headache type; Tingling; Palpitations Start: 08-06-2024 End: 08-06-2024 ambulatory JOVON WILDER JR Facility:[facility] Start: 07-23-2024 End: 08-23-2024 ambulatory Jm Childress MD Work Phone: [facility] Start: 07-22-2024 End: 07-26-2024 ambulatory DENISE HADLEY MD Facility:[facility] Start: 07-22-2024 End: 07-26-2024 Outreach Lab DENISE HADLEY MD [facility] Start: 07-17-2024 ambulatory Jasbir Childress Facility :[facility] Start: 07-10-2024 End: 07-10-2024 E-mail encounter from caregiver [facility] Pain Management Start: 07-10-2024 End: 07-10-2024 Patient encounter procedure [facility] Pain [facility] Comment on above: Instructions for you r upcoming appointment Start: 07-10-2024 End: 07-10-2024 Telephone encounter Jm Childress MD Work Phone: [facility] Comment on above: Received Outside Med ical Records Start: 07-09-2024 End: 07-09-2024 ambulatory Jasbir Childress Facility:[facility] Start: 06-27-2024 End: 07-25-2024 Telephone encounter Jm Childress MD Work Phone: [address] [place] [address] Start: 06-17-2024 ambulatory RHONDA LEA SPECIALTY TRIMMER-GEOGRAPHY HEAD Facility:[facility] Start: 06-14-2024 End: 06-14-2024 Telephone encounter Karen Saul PA-C Work Phone: Neurology Comment on above: Results (Tilt table) Start: 06-11-2024 ambulatory KAREN SAUL Facilit y:[facility] Start: 06-11-2024 End: 06-11-2024 ambulatory KAREN SAUL Facility:[facility] Start: 06-07-2024 End: 06-07-2024 ambulatory KAREN SAUL Facility:[facility] Start: 06-07-2024 End: 06-07-2024 Patient encounter procedure KAREN SAUL [facility] Start: 06-07-2024 End: 06-07-2024 Telephone encounter Karenrobi Salazarcornelius PA-C Work Phone: Neurology Start: 06-06-2024 End: 06-06-2024 Telephone encounter Karen Kg PA-C Work Phone: Neurology Comment on above: Things that patient needs done prior to Monday tilt table Start: 06-04-2024 End: 06-04-2024 Telephone encounter Michele Gandhi MD Work Phone: [facility] Cardiology [place] Comment on above: Results Start: 05-30-2024 End: 05-30-2024 E-mail encounter from caregiver [facility] Provider Pain Management Start: 05-30-2024 End: 05-30-2024 Patient encounter procedure [facility] Provider Pain Management Comment on above: Instructions for you r upcoming appointment Start: 05-20-2024 End: 05-20-2024 ambulatory MICHELE GANDHI Facility:[facility] Start: 05-16-2024 End: 05-16-2024 ambulatory Nurse Card Admin [facility] [employer] Work Phone: Cardiology Comment on above: stress Test Instruct ions for 05/20/24 Start: 05-16-2024 End: 05-16-2024 E-mail encounter from caregiver Nurse Card Admin [facility] [employer] Work Phone: Cardiology Start: 05-03-2024 End: 05-03-2024 Telephone encounter Karen Saul PA-C Work Phone: Neurology Start: 05-01-2024 End: 05-01-2024 ambulatory JM CHILDRESS Facility:[facility] Start: 05-01-2024 End: 05-01-2024 Subsequent hospital visit by physician [employer] [employer] [facility] (I-Stat/1.5t) Work Phone: Radiology Comment on above: Demyelinating diseas e of central nervous system (HCC) [G37.9] Start: 04-22-2024 End: 04-22-2024 ambulatory MICHELE GANDHI Facility:[facility] Start: 04-08-2024 End: 04-09-2024 Refill Karen Saul PA-C Work Phone: Neurology Comment on above: Refill Request Medication not showi ng Start: 04-05-2024 End: 04-05-2024 ambulatory KAREN SAUL Facility:[facility] Start: 04-05-2024 End: 04-05-2024 Patient encounter procedure Karen LAUREN-Jamey Work Phone: Neurology Comment on above: Intractable 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 (Primary Dx); Altered awareness, transient; Pituitary tumor; Dizziness; Positional lightheadedness; Palpitations; Left hand weakness; 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; Concussion with loss of consciousness, initial encounter Start: 04-01-2024 End: 04-01-2024 Patient encounter procedure Jovon Wilder MD Work Phone: Neurology Comment on above: Cervicalgia (Primary Dx); Radiculopathy, cervical region; Intractable headache, unspecified chronicity pattern, unspecified headache type; Other chest pain; Tingling; Chronic insomnia; Shift work sleep disorder; Demyelinating disease of central nervous system (HCC) Start: 04-01-2024 End: 04-01-2024 ambulatory JM CHILDRESS Facility:[facility] Start: 03-25-2024 End: 03-25-2024 ambulatory JM CHILDRESS Facility:[facility] Start: 03-25-2024 End: 03-25-2024 Patient encounter procedure Michele Gandhi MD Work Phone: Cardiology Comment on above: Shortness of breath (Primary Dx); Precordial pain; PFO (patent foramen ovale) Start: 03-19-2024 End: 03-19-2024 ambulatory JM CHILDRESS Facility:[facility] Start: 03-19-2024 End: 03-19-2024 Office outpatient visit 25 minutes Bowen Ma APRN.GEOGRAPHY HEAD Work Phone: [facility] [place] Comment on above: Chronic constipation (Primary Dx); Hiatal hernia with GERD; Left upper quadrant abdominal pain Start: 03-18-2024 End: 03-22-2024 ambulatory RHONDA LEA APRN-GEOGRAPHY HEAD Facility:[facility] Start: 03-18-2024 End: 03-22-2024 Outreach Lab DENISE HADLEY MD [facility] Start: 03-10-2024 End: 03-12-2024 Refill Karen Saul PA-C Work Phone: Neurology Comment on above: Refill Request Start: 02-23-2024 End: 02-23-2024 Refill Jm Childress MD Work Phone: Family Practice Comment on above: Refill Request Start: 02-15-2024 End: 02-15-2024 ambulatory Michele Gandhi MD Work Phone: Cardiology Comment on above: Heart palpitations Start: 02-14-2024 End: 02-14-2024 Telephone encounter Karen Saul PA-C Work Phone: Neurology Start: 02-12-2024 End: 02-12-2024 Refill Jm Childress MD Work Phone: Family Practice Comment on above: Refill Request Start: 02-01-2024 Refill Jud Denny APRN.GEOGRAPHY HEAD Work Phone: Family Practice Comment on above: Refill Request Start: 01-31-2024 End: 01-31-2024 Emergency department patient visit JOVON CAZARES MD [facility] Start: 01-04-2024 End: 01-04-2024 Patient encounter procedure Karen Saul PA-C Work Phone: Neurology Comment on above: Positional lighthead edness (Primary Dx); Intractable 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; Pituitary tumor; Dizziness; Palpitations; Left hand weakness Start: 12-19-2023 End: 12-19-2023 Patient encounter procedure Jm Childress MD Work Phone: [facility] Comment on above: Light headed (Primar y Dx); Chest pain, unspecified type; Hypotension, unspecified hypotension type Start: 12-12-2023 Telephone encounter Jm Childress MD Work Phone: [facility] Comment on above: Received Outside [facility] Records ([place] [facility] Surgical pathology 12/07/2023 Cervix and Uterus. ) Start: 12-07-2023 End: 12-08-2023 ambulatory DENISE HADLEY MD Facility:B Start: 12-07-2023 End: 12-08-2023 Observation SORAYA MCMANUS SPECIALTY TRIMMER-GEOGRAPHY HEAD [facility] Start: 12-02-2023 End: 12-02-2023 Emergency department patient visit CONNIE SAM [facility] Start: 11-29-2023 End: 11-29-2023 Admission to establishment DENISE HADLEY MD [facility] Start: 11-29-2023 End: 11-29-2023 ambulatory DENISE HADLEY MD Facility:B Start: 11-11-2023 Refill Karen woods PA-C Work Phone: Neurology Comment on above: Refill Request Start: 10-11-2023 ambulatory Jm de la cruz MD Work Phone: [facility] Comment on above: Picture Dog Bite Start: 10-04-2023 End: 10-04-2023 Office outpatient visit 25 minutes Jud Denny SPECIALTY TRIMMER.GEOGRAPHY HEAD Work Phone: [facility] Comment on above: Chronic cough (Prima ry Dx); Continuous tobacco abuse; Chronic insomnia; PFO (patent foramen ovale) Start: 08-23-2023 ambulatory Jm de la cruz MD Work Phone: Internal Medicine [facility] Start: 08-01-2023 End: 08-01-2023 Emergency department patient visit JOVON CAZARES MD [facility] Start: 06-12-2023 End: 06-12-2023 ambulatory DENISE HADLEY MD Facility:B Start: 06-12-2023 End: 06-12-2023 Patient encounter procedure DENISE HADLEY MD [facility] Start: 06-07-2023 End: 06-07-2023 Patient encounter procedure Breanne LAUREN-C Work Phone: Gastroenterology [place] Comment on above: Chronic constipation (Primary Dx); Chronic pelvic pain in female; Hiatal hernia with GERD Start: 06-01-2023 Refill Karen LAUREN-C Work Phone: Neurology Comment on above: Refill Request Start: 05-30-2023 Telephone encounter Jm Childress MD Work Phone: [facility] Comment on above: Received Outside [facility] Records ([facility] Surgical Pathology report finale 05/29/2023) Start: 05-25-2023 End: 05-25-2023 ambulatory DENISE HADLEY MD Facility:B Start: 05-16-2023 End: 05-16-2023 Admission to establishment DENISE HADLEY MD [facility] Start: 05-16-2023 End: 05-16-2023 ambulatory DENISE HADLEY MD Facility:B Start: 04-11-2023 End: 04-11-2023 Emergency department patient visit [facility] Work Phone: Start: 04-03-2023 End: 04-03-2023 Manual pelvic examination Micheline Parr APRN.GEOGRAPHY HEAD Work Phone: OB/Gynecology Comment on above: Ovarian cyst, right (Primary Dx); Chronic pelvic pain in female Start: 04-03-2023 End: 04-03-2023 Telemedicine consultation with patient Micheline Parr APRN.GEOGRAPHY HEAD Work Phone: [facility] Start: 03-31-2023 Telephone encounter Micheline [facility] halfway SPECIALTY TRIMMER.GEOGRAPHY HEAD Work Phone: OB/Gynecology Comment on above: Patient Update Start: 03-28-2023 Telephone encounter Micheline [facility] halfway SPECIALTY TRIMMER.GEOGRAPHY HEAD Work Phone: OB/Gynecology Comment on above: Results Start: 03-27-2023 End: 03-27-2023 Subsequent hospital visit by physician Mri Radio [facility] W[facility] (I-Stat/1.5t) Work Phone: Radiology Comment on above: Pelvic and perineal pain [R10.2] Start: 03-22-2023 End: 03-22-2023 Subsequent hospital visit by physician [facility] Wstr (I-Stat) Work Phone: Cat Scan Comment on above: Injury of head, init ial encounter [S09.90XA] Start: 03-17-2023 End: 03-17-2023 Patient encounter procedure Keke Jennings OD Work Phone: Ophthalmology Comment on above: Post-concussion synd rafat (Primary Dx); Blurred vision; Facial myokymia Start: 03-14-2023 Telephone encounter Karen delgado PA-C Work Phone: Neurology Start: 03-10-2023 End: 03-10-2023 Patient encounter procedure Karen Saul PA-C Work Phone: Neurology Comment on above: Concussion with loss of consciousness, initial encounter (Primary Dx); Action tremor; Intractable 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; 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; Pituitary tumor; Injury of head, initial encounter; Blurred vision Start: 03-08-2023 Haley Bowden PA-C Work Phone: [facility] [place] Comment on above: Med Change Request Start: 03-08-2023 End: 03-08-2023 Patient encounter procedure Breanne Bowden PA-C Work Phone: G[facility]enterology [place] Comment on above: Chronic constipation (Primary Dx); Lower abdominal pain; Hiatal hernia with GERD Start: 03-02-2023 ambulatory Karen woods PA-C Work Phone: Neurology Comment on above: Medication Start: 03-01-2023 End: 03-01-2023 Emergency department patient visit JOEY REED MD [facility] Start: 03-01-2023 ambulatory Jm de la cruz MD Work Phone: [facility] Comment on above: Nurse Triage Call Start: 02-25-2023 End: 02-25-2023 Emergency department patient visit DR JEANNINE DELGADO DO [facility] Start: 02-10-2023 Telephone encounter Micheline zimmer SPECIALTY TRIMMER.GEOGRAPHY HEAD Work Phone: OB/Gynecology Comment on above: Results Start: 02-08-2023 End: 02-08-2023 ambulatory Ob Ultrasound Work Phone: OB/Gynecology Comment on above: LOAN AUDITOR Ultrasound Start: 02-08-2023 End: 02-08-2023 Patient encounter procedure Digital Color Press Operator [place] [facility] Work Phone: 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 Start: 09-08-2022 End: 09-08-2022 Subsequent hospital visit by physician Mri Radio [facility] (I-Stat/1.5t) Work Phone: Radiology Comment on above: Pituitary tumor [D49 .7] Start: 08-19-2022 Telephone encounter Self [facility] Comment on above: Triage (Internal Ref erral) Start: 08-18-2022 End: 08-18-2022 Patient encounter procedure Karen Saul PA-C Work Phone: Neurology Comment on above: Action tremor (Prima ry Dx); Myoclonus; Pituitary tumor; Intractable 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; 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 Comment on above: Received Outside Med ical Records ([facility] ED 08/17/22) Start: 08-17-2022 End: 08-17-2022 Emergency department patient visit [facility] Start: 08-08-2022 ambulatory Jud Denny APRN.GEOGRAPHY HEAD Work Phone: [facility] Comment on above: Results Start: 08-04-2022 End: 08-04-2022 Emergency department patient visit DR JERRELL MANUEL MD [facility] Start: 08-02-2022 ambulatory JM CHILDRESS [facility] ty:[facility] Start: 07-18-2022 Chart abstracting [facility] Work Phone: Neurology Start: 06-08-2022 End: 06-08-2022 Patient encounter procedure Carmen Acuna APRN.GEOGRAPHY HEAD Work Phone: OB/Gynecology Comment on above: Encounter for gyneco logical examination (general) (routine) without abnormal findings (Primary Dx); Screening for cervical cancer; Encounter for screening for human papillomavirus (HPV) Start: 06-08-2022 End: 06-08-2022 Patient encounter status Carmen Acuna APRN.[facility] Work Phone: OB/Gynecology Start: 06-04-2022 End: 06-04-2022 Emergency department patient visit MOUSTAPHA GUNN MD [facility] Start: 03-10-2022 End: 03-10-2022 Patient encounter procedure Lorraine Ruiz MD Work Phone: OB/Gynecology Comment on above: Labial cyst (Primary Dx); Chronic folliculitis Start: 02-22-2022 Telephone encounter Rashmi Castañeda APRN.GEOGRAPHY HEAD Work Phone: Cardiology Comment on above: Appointment Start: 10-26-2021 Telephone encounter Rashmi Castañeda APRN.GEOGRAPHY HEAD Work Phone: Cardiology Comment on above: Results Start: 10-25-2021 End: 10-26-2021 Patient encounter procedure Rashmi Castañeda APRN.GEOGRAPHY HEAD Work Phone: Cardiology Comment on above: Palpitations (Primar y Dx); SAI (obstructive sleep apnea); Brain fog; Near syncope; Leg swelling; PFO (patent foramen ovale); TIA (transient ischemic attack) Start: 06-15-2021 End: 06-15-2021 Emergency department patient visit ANGELLA BURT MD [facility] Start: 05-16-2018 Emergency department patient visit [facility] Procedures Date Procedure Procedure Detail Performing Clinician Start: 01-01-[address] Jasbir Childress MD Work Phone: Start: 09-03-2024 Brncdilat rspse spmt ry pre&post-brncdilat admn Billy Lynn MD Work Phone: Start: 05-01-2024 Mri spinal canal cer vical w/o & w/contr matrl Jovon Wilder MD Work Phone: Start: 04-11-2023 Plain chest X-ray Start: 04-11-2023 CT of abdomen and pe lvis without contrast Start: 04-11-2023 SARS-CoV-2 & FLU Ant igen (Rapid) Start: 03-27-2023 Mri pelvis w/o & w/c ontrast material Micheline Parr SPECIALTY TRIMMER.GEOGRAPHY HEAD Work Phone: Start: 03-22-2023 Ct head/brain w/o co ntrast material Karen Salazarer PA-C Work Phone: Start: 02-08-2023 Us pelvic nonobstetr ic real-time image complete Micheline Parr SPECIALTY TRIMMER.GEOGRAPHY HEAD Work Phone: Start: 09-08-2022 Mri brain brain stem w/o w/contrast material Karen Salazarer PA-C Work Phone: Deliveries by faustina yip (finding) ANGELLA BURT MD Comment on above: x 3 Dilation and curettage DENISE HADLEY MD Comment on above: with myosure Hysterectomy SORAYA MCMANUS APR N-GEOGRAPHY HEAD Ligation of fallopian tube Peggy BURT MD Plan of Treatment Date Care Activity Detail Author Start: 06-08-2027 HPV TESTING HPV TESTING [facility] Start: 06-08-2027 PAP TESTING PAP TESTING [facility] Start: 06-08-2027 Screening for malignant neoplasm of cervix [facility] Start: 04-07-2025 End: 04-07-2025 Patient encounter procedure Cardiology Comment on above: 1 year follow up Start: 03-24-2025 End: 03-24-2025 Patient encounter procedure 03/24/2025 11:00 AM EDT Office Visit Neurology [address] [place] [address] Jovon Wilder Jr., MD [address] [place] [address] Pots Follow Up Neurology Comment on above: Pots Follow Up Start: 02-24-2025 Influenza vaccination [facility] Start: 02-04-2025 End: 02-04-2025 Patient encounter procedure 02/04/2025 10:55 AM EDT Office Visit Gastroenterology [facility] [place] [phone] Breanne Bowden PA-C [address] [place] [address] 3 month follow up office visit, chronic constipation [facility] [place] Comment on above: 3 month follow up office visit, chronic constipation Start: 01-02-2025 End: 01-02-2025 Patient encounter procedure 01/02/2025 9:15 AM EDT Office Visit G[facility]enterology [facility] [phone] Breanne Bowden PA-C [address] [place], [place] [phone] 3 month follow up office visit, chronic constipation [facility] Comment on above: 3 month follow up office visit, chronic constipation Start: 11-13-2024 End: 11-13-2024 ambulatory 11/13/2024 9:30 AM EDT Results Only [place] [facility] [address] [place] [address] [place] Start: 11-13-2024 End: 11-13-2024 Patient encounter procedure Radiology Comment on above: returning symptoms Start: 11-06-2024 End: 11-06-2024 Patient encounter procedure 11/06/2024 3:30 PM EDT Office Visit Neurology [address] [place] [address] Karen Saul PA-C [address] [place] [address] returning symptoms Neurology Comment on above: returning symptoms Start: 10-02-2024 End: 10-02-2024 Patient encounter procedure 10/02/2024 10:45 AM EDT Office Visit Cardiology [address] [phone] Dx: Dizziness [R42 (ICD-10-CM)]; Positional lightheadedness [R42 (ICD-10-CM)] Cardiology Comment on above: Dx: Dizziness [R42 (ICD-10-CM)]; Positio nal lightheadedness [R42 (ICD-10-CM)] Start: 09-04-2024 End: 09-04-2024 Patient encounter procedure [facility] [place] Comment on above: Bleeding Start: 09-03-2024 End: 09-03-2024 Patient encounter procedure 09/03/2024 2:00 PM EDT Office Visit Pulmonary Medicine [address] [place] [address] [place] [address] [place], [place] [phone] struggling to breathe Pulmonary Medicine Comment on above: struggling to breathe Start: 09-03-2024 End: 09-03-2024 ambulatory [facility] [address] 01 Comment on above: struggling to breathe Start: 08-15-2024 End: 08-15-2024 Patient encounter procedure 08/15/2024 12:00 PM EST Office Visit Neurology [address] [facility] [place] [address] Karen Saul PA-C [address] [place], [place] [phone] follow up after MRI Neurology Comment on above: follow up after MRI Start: 08-14-2024 End: 11-13-2024 CBC panel - Blood by Automated count COMPLETE BLOOD COUNT Lab Routine SOB (shortness of breath) Expected: 08/14/2024, Expires: 11/13/2024 [facility] Comment on above: Expected: 08/14/2024, Expires: Start: 08-14-2024 End: 11-13-2024 Comprehensive metabolic 2000 panel - Serum or Plasma COMPREHENSIVE METABOLIC PANEL Lab Routine SOB (shortness of breath) Expected: 08/14/2024, Expires: 11/13/2024 [facility] Comment on above: Expected: 08/14/2024, Expires: Start: 08-14-2024 End: 11-13-2024 Follitropin [Units/volume] in Serum or Plasma FOLLICLE STIMULATING HORMONE Lab Routine Surgical menopause Expected: 08/14/2024, Expires: 11/13/2024 [facility] Comment on above: Expected: 08/14/2024, Expires: Start: 08-14-2024 End: 11-13-2024 Lutropin [Units/volume] in Serum or Plasma LUTEINIZING HORMONE Lab Routine Surgical menopause Expected: 08/14/2024, Expires: 11/13/2024 [facility] Comment on above: Expected: 08/14/2024, Expires: Start: 08-06-2024 End: 08-06-2024 Follow-up encounter 08/06/2024 10:30 AM EST [facility] [address] [place] [address] Jovon Wilder Jr., MD [address] [place], [place] [address] Sleep follow up Sleep Comment on above: Sleep follow up Start: 07-17-2024 End: 07-17-2024 Patient encounter procedure 07/17/2024 10:00 AM EST Office Visit Pain Management [address] [address] Suresh Branham MD [address] [facility] [place] [address] Cervical stenosis of spine [M48.02 Pain Management Comment on above: Cervical stenosis of spine [M48.02 Start: 07-03-2024 End: 07-03-2024 Patient encounter procedure 07/03/2024 11:00 AM EST Office Visit Neurology [address] [place] [address] Karen Saul PA-C [address] [facility] [place] [address] follow up after MRI Neurology Comment on above: follow up after MRI Start: 06-06-2024 End: 09-05-2024 CBC panel - Blood by Automated count COMPLETE BLOOD COUNT Lab Routine Palpitations Expected: 06/06/2024, Expires: 09/05/2024 [facility] Work Phone: Comment on above: Expected: 06/06/2024, Expires: Start: 06-06-2024 End: 09-05-2024 Choriogonadotropin.beta subunit [Units/volume] in Serum or Plasma HCG QUANTITATIVE Lab Routine Palpitations Expected: 06/06/2024, Expires: 09/05/2024 [facility] Comment on above: Expected: 06/06/2024, Expires: Start: 06-06-2024 End: 09-05-2024 Comprehensive metabolic 2000 panel - Serum or Plasma COMPREHENSIVE METABOLIC PANEL Lab Routine Palpitations Expected: 06/06/2024, Expires: 09/05/2024 [facility] Comment on above: Expected: 06/06/2024, Expires: Start: 06-05-2024 End: 06-05-2024 Patient encounter procedure 06/05/2024 10:00 AM EST Office Visit Pain Management [address] [address] Suresh Branham MD [address] [facility] [place] [address] Cervical stenosis of spine [M48.02 Pain Management Comment on above: Cervical stenosis of spine [M48.02 Start: 05-20-2024 End: 05-20-2024 Patient encounter procedure 05/20/2024 11:20 AM EST Office Visit Cardiology [address] [place] [phone] Wstr, Nurse Card Admin [facility] [address] [place] [phone] Shortness of breath [R06.02] Cardiology Comment on above: Shortness of breath [R06.02] Start: 05-01-2024 End: 05-01-2024 Patient encounter procedure 05/01/2024 10:00 AM EST Appointment Radiology [address] [place] [address] Demyelinating disease of central nervous system (HCC) [G37.9]; Cervicalgia [M54.2]; Radiculopathy, cervical region [M54.12] Radiology Comment on above: Demyelinating disease of central nervous system (HCC) [G37.9]; Cervicalgia [M54.2]; Radiculopathy, cervical region [M54.12] Start: 04-22-2024 End: 04-22-2024 Patient encounter procedure 04/22/2024 8:50 AM EDT Office Visit Cardiology [address] [place], [place] [address] Shortness of breath [R06.02] Cardiology Comment on above: Shortness of breath [R06.02] Start: 04-08-2024 End: 05-02-2024 Us transvaginal US FEMALE PELVIS TRANSVAG Radiology Routine Ovarian cyst, right Expected: 04/08/2024, Expires: 05/02/2024 [facility] Work Phone: Comment on above: Expected: 04/08/2024, Expires: Start: 04-05-2024 End: 04-05-2024 Patient encounter procedure 04/05/2024 4:30 PM EDT Office Visit Neurology [address] [place] [address] [place] [address] Karen Saul PA-C [address] [place], [place] [phone] 3 month follow up Neurology Comment on above: 3 month follow up Start: 04-01-2024 End: 03-25-2025 Echocardiography ECHO Cardiology Routine Shortness of breath Expected: 04/01/2024, Expires: 03/25/2025 [facility] Work Phone: Comment on above: Expected: 04/01/2024, Expires: Start: 04-01-2024 End: 03-25-2025 STRESS ECHO TREADMILL STRESS ECHO TREADMILL Cardiology Routine Shortness of breath Expected: 04/01/2024, Expires: 03/25/2025 [facility] Comment on above: Expected: 04/01/2024, Expires: Start: 04-01-2024 End: 04-01-2024 Patient encounter procedure 04/01/2024 8:00 AM EDT Office Visit Neurology [address] [place] [address] Jovon Wilder Jr., MD [address] [phone] Chronic insomnia [F51.04] Neurology Comment on above: Chronic insomnia [F51.04] Start: 03-25-2024 End: 03-25-2024 Patient encounter procedure 03/25/2024 3:40 PM EDT Office Visit Cardiology [address] [place] [phone] Michele Gandhi MD [address] [facility], [address] [place], [place] [phone] follow up Cardiology Comment on above: follow up Start: 03-19-2024 End: 03-19-2024 Patient encounter procedure 03/19/2024 9:15 AM EDT Office Visit Gastroenterology [facility] [address] [place] [phone] Bowen Ma, XENIA.GEOGRAPHY HEAD [address] [place] [address] constipation, irregular bowel movements, hemroids, strugging to breathe [facility] Comment on above: constipation, irregular bowel movements, hemroids, strugging to breathe Start: 03-08-2024 End: 03-08-2024 Patient encounter procedure 03/08/2024 2:30 PM EDT Office Visit Neurology [address] [facility] [place] [phone] Karen Saul PA-C [address] [facility] [place] [address] Nerve issues causing problems Neurology Comment on above: Nerve issues causing problems Start: 02-25-2024 Covid-19 Vaccine ( season) Covid-19 Vaccine () [facility] Start: 02-25-2024 Covid-19 Vaccine ( season) Covid-19 Vaccine () [facility] Start: 02-25-2024 Influenza vaccination [facility] Start: 02-16-2024 End: 02-16-2024 ambulatory 02/16/2024 10:35 AM EDT Procedure Neurology [address] [facility] [place] [address] Left hand weakness [R29.898] Neurology Comment on above: Left hand weakness [R29.898] Start: 12-25-2023 End: 03-25-2024 Basic metabolic 2000 panel - Serum or Plasma BASIC METABOLIC PANEL Lab Routine Light headed Hypotension, unspecified hypotension type Expected: 12/25/2023, Expires: 03/25/2024 [facility] Work Phone: Comment on above: Expected: 12/25/2023, Expires: Start: 12-25-2023 End: 03-25-2024 CBC panel - Blood by Automated count COMPLETE BLOOD COUNT Lab Routine Light headed Hypotension, unspecified hypotension type Expected: 12/25/2023, Expires: 03/25/2024 [facility] Comment on above: Expected: 12/25/2023, Expires: Start: 12-25-2023 End: 03-25-2024 Thyrotropin [Units/volume] in Serum or Plasma THYROID STIMULATING HORMONE Lab Routine Light headed Hypotension, unspecified hypotension type Expected: 12/25/2023, Expires: 03/25/2024 [facility] Comment on above: Expected: 12/25/2023, Expires: Start: 12-19-2023 End: 12-19-2023 Patient encounter procedure 12/19/2023 11:00 AM EDT Office Visit Family Practice [address] [facility] [place] [address] Jm Childress MD [address] [facility] [place] [address] [facility] Comment on above: hospital follow up Start: 2023 Screening for malignant neoplasm of breast Mammogram Screening [facility] Start: 06-07-2023 End: 09-06-2023 CBC W Auto Differential panel - Blood CBC + DIFF Lab Routine Chronic constipation Expected: 06/07/2023, Expires: 09/06/2023 [facility] Work Phone: Comment on above: Expected: 06/07/2023, Expires: 4 Start: 06-07-2023 End: 09-06-2023 CELIAC SCREEN WITH REFLEX CELIAC SCREEN WITH REFLEX Lab Routine Chronic constipation Expected: 06/07/2023, Expires: 09/06/2023 [facility] Work Phone: Comment on above: Expected: 06/07/2023, Expires: 4 Start: 06-07-2023 End: 09-06-2023 Comprehensive metabolic 2000 panel - Serum or Plasma COMP METABOLIC PANEL Lab Routine Chronic constipation Expected: 06/07/2023, Expires: 09/06/2023 [facility] Work Phone: Comment on above: Expected: 06/07/2023, Expires: 4 Start: 06-07-2023 End: 09-06-2023 Thyrotropin [Units/volume] in Serum or Plasma TSH BLD Lab Routine Chronic constipation Expected: 06/07/2023, Expires: 09/06/2023 [facility] Work Phone: Comment on above: Expected: 06/07/2023, Expires: 4 Start: 04-11-2023 [facility] Start: 03-20-2023 HPV TESTING HPV TESTING [facility] Start: 03-20-2023 PAP TESTING PAP TESTING [facility] Start: 02-24-2023 Covid-19 Vaccine ( season) Covid-19 Vaccine () [facility] Start: 02-24-2023 Influenza vaccination [facility] Start: 01-26-2023 End: 01-27-2024 PELVIC US WHI PELVIC US WHI Anc Imaging Routine Pelvic pain in female Expected: 01/26/2023, Expires: 01/27/2024 [facility] Work Phone: Comment on above: Expected: 01/26/2023, Expires: Start: 06-10-2022 COVID-19 VACCINE (#1) COVID-19 VACCINE (#1) [facility] Comment on above: Postponed from 01/18/1984 (Declined at t his time) Start: 06-10-2022 COVID-19 VACCINE (1) COVID-19 VACCINE (1) [facility] Comment on above: Postponed from 1988 (Declined at t his time) Start: 02-24-2022 Influenza vaccination [facility] Start: 2002 Hepatitis B Vaccine (1 of 3 - 19+ 3-dose series) Hepatitis B Vaccine (1 of 3 - 19+ 3-dose series) [facility] Start: 2002 Urine microalbumin profile [facility] Start: 2001 Anxiety Screening Anxiety Screening [facility] Start: 1989 PNEUMOCOCCAL (1 - PCV) PNEUMOCOCCAL (1 - PCV) [facility] Start: 1989 Pneumococcal vaccination [facility] Start: 01-18-1984 COVID-19 VACCINE (#1) COVID-19 VACCINE (#1) [facility] Start: 1983 HEPATITIS B (1 of 3 - 3-dose series) HEPATITIS B (1 of 3 - 3-dose series) [facility] Start: 1983 Hepatitis B Vaccine (1 of 3 - 3-dose series) Hepatitis B Vaccine (1 of 3 - 3-dose series) [facility] End: 09-04-2025 ADULT [place] ANORECTAL MANOMET[place] ADULT [place] ANORECTAL MANOMETRY Endoscopy Routine Chronic constipation 1 Occurrences starting 09/04/2024 until 09/04/2025 [facility] Comment on above: 1 Occurrences starting 09/04/2024 until 09/04/2025 Cardiovascular funct ion eval w/tilt table w/mntr TILT TABLE EVALUATION Cardiology Routine Dizziness Positional lightheadedness Ordered: 01/04/2024 [facility] Comment on above: Ordered: 01/04/2024 End: 04-08-2024 CT BRAIN WO IVCON CT BRAIN WO IVCON Radiology Routine Injury of head, initial encounter Concussion with loss of consciousness, initial encounter 1 Occurrences starting 03/10/2023 until 04/08/2024 [facility] Work Phone: Comment on above: 1 Occurrences starting 03/10/2023 until 04/08/2024 End: 08-22-2025 DBT Breast - bilateral screening DAVID SCREENING W KYLE Radiology Routine Encounter for screening mammogram for breast cancer 1 Occurrences starting 07/23/2024 until 08/22/2025 [facility] Work Phone: Comment on above: 1 Occurrences starting 07/23/2024 until 08/22/2025 End: 10-25-2022 Echocardiography ECHO Cardiology Routine Palpitations 1 Occurrences starting 10/25/2021 until 10/25/2022 [facility] Work Phone: Comment on above: 1 Occurrences starting 10/25/2021 until 10/25/2022 End: 01-03-2025 EMG(NEURO/NI) EMG(NEURO/NI) EMG Routine Left hand weakness 1 Occurrences starting 01/04/2024 until 01/03/2025 [facility] Comment on above: 1 Occurrences starting 01/04/2024 until 01/03/2025 End: 04-05-2025 EPIL EEG ROUTINE EPIL EEG ROUTINE NEUROLOGY Routine Altered awareness, transient 1 Occurrences starting 04/05/2024 until 04/05/2025 [facility] Work Phone: Comment on above: 1 Occurrences starting 04/05/2024 until 04/05/2025 End: 09-21-2024 MG Breast Screening DAVID SCREENING Radiology Routine Encounter for screening mammogram for breast cancer 1 Occurrences starting 08/23/2023 until 09/21/2024 [facility] Work Phone: Comment on above: 1 Occurrences starting 08/23/2023 until 09/21/2024 End: 05-01-2025 MR Cervical spine WO and W contrast IV MRI CERVICAL SPINE WO/W IVCON Radiology Routine Demyelinating disease of central nervous system (HCC) Cervicalgia Radiculopathy, cervical region 1 Occurrences starting 04/01/2024 until 05/01/2025 [facility] Work Phone: Comment on above: 1 Occurrences starting 04/01/2024 until 05/01/2025 End: 09-17-2023 Mri brain brain stem w/o w/contrast material MRI BRAIN WO/W IVCON Radiology Routine Pituitary tumor Intractable 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 1 Occurrences starting 08/18/2022 until 09/17/2023 [facility] Work Phone: Comment on above: 1 Occurrences starting 08/18/2022 until 09/17/2023 End: 03-11-2024 Mri pelvis w/o & w/contrast material MRI FEMALE PELVIS WO/W IVCON Radiology Routine Pelvic and perineal pain 1 Occurrences starting 02/10/2023 until 03/11/2024 [facility] Work Phone: Comment on above: 1 Occurrences starting 02/10/2023 until 03/11/2024 OUTSIDE VENDOR CARDI AC OUTPATIENT EXTENDED RHYTHM RECORDING (WITHOUT TELEMETRY) OUTSIDE VENDOR CARDIAC OUTPATIENT EXTENDED RHYTHM RECORDING (WITHOUT TELEMETRY) Holter Routine Palpitations Ordered: 01/04/2024 [facility] Work Phone: Comment on above: Ordered: 01/04/2024 PAP FLUID CERVICAL SCREENING PAP FLUID CERVICAL SCREENING Lab Routine Encounter for gynecological examination (general) (routine) without abnormal findings Screening for cervical cancer Encounter for screening for human papillomavirus (HPV) Ordered: 06/08/2022 [facility] Work Phone: Comment on above: Ordered: 06/08/2022 Patient Education [facility] Work Phone: Patient referral [facility] Work Phone: End: 11-02-2024 SPIROMETRY - BASELINE AND POST DILATOR SPIROMETRY - BASELINE AND POST DILATOR PFT Routine Chronic cough 1 Occurrences starting 10/04/2023 until 11/02/2024 [facility] Work Phone: Comment on above: 1 Occurrences starting 10/04/2023 until 11/02/2024 Tdap vaccine 7 yrs/> im TDAP VAC CINE, AGE 7+ YR (ADACEL, BOOSTRIX) Immunization/Injection Routine Encounter for immunization Ordered: 10/11/2023 [facility] Work Phone: Comment on above: Ordered: 10/11/2023 US Abdomen limited [facility] End: 04-06-2024 XR ABDOMEN 1V SUPINE XR ABDOMEN 1V SUPINE Radiology Routine Chronic constipation 1 Occurrences starting 03/08/2023 until 04/06/2024 [facility] Work Phone: Comment on above: 1 Occurrences starting 03/08/2023 until 04/06/2024 End: 07-06-2024 XR ABDOMEN 1V SUPINE XR ABDOMEN 1V SUPINE Radiology Routine Chronic constipation Chronic pelvic pain in female 1 Occurrences starting 06/07/2023 until 07/06/2024 [facility] Work Phone: Comment on above: 1 Occurrences starting 06/07/2023 until 07/06/2024 End: 04-18-2025 XR Abdomen Supine and Upright XR ABDOMEN 2V ROUTINE SUPINE W UPRIGHT/DECUB/CTL Radiology Routine Chronic constipation Left upper quadrant abdominal pain 1 Occurrences starting 03/19/2024 until 04/18/2025 [facility] Work Phone: Comment on above: 1 Occurrences starting 03/19/2024 until 04/18/2025 End: 10-04-2025 XR Abdomen Supine and Upright XR ABDOMEN 2V ROUTINE SUPINE W UPRIGHT/DECUB/CTL Radiology Routine Chronic constipation 1 Occurrences starting 09/04/2024 until 10/04/2025 [facility] Work Phone: Comment on above: 1 Occurrences starting 09/04/2024 until 10/04/2025 XR Chest PA and Lateral XR CHEST 2V FRONTAL/LAT Radiology STAT Chronic cough Ordered: 10/04/2023 [facility] Work Phone: Comment on above: Ordered: 10/04/2023 End: 09-13-2025 XR Chest PA and Lateral XR CHEST 2V FRONTAL/LAT Radiology Routine SOB (shortness of breath) History of 2019 novel coronavirus disease (COVID-19) 1 Occurrences starting 08/14/2024 until 09/13/2025 [facility] Work Phone: Comment on above: 1 Occurrences starting 08/14/2024 until 09/13/2025 [facility] Immunizations Immunization Date Immunization Notes Care Provider Yovanny damon 06-24-2013 influenza virus vaccine, unspecified formulation Rashmi Maddy SPECIALTY TRIMMER.[facility] Work Phone: [facility] 04-01-2011 RHO(D) immune globul in- IV or IM Rashmi Maddy SPECIALTY TRIMMER.[facility] Work Phone: [facility] Work Phone: 10-15-2009 RHO(D) immune globul in- IV or IM Rashmi Maddy SPECIALTY TRIMMER[employer] Work Phone: [facility] 08-19-2009 RHO(D) immune globul in- IV or IM Rashmi Maddy [employer]TY TR[employer]MER[employer] Work Phone: [facility] Work Phone: 04-28-2009 influenza virus vaccine, unspecified formulation Rashmi Maddy SPECIALTY TRIMMER.[facility] Work Phone: [facility] Work Phone: Payers Date Payer Category Payer Self-pay [id number] 2022 Unknown 2018 Medicaid [employer] [id number] 2018-Present [phone] [address] [place] [address] Medicaid [id number] 2018 Medicaid [id number]. [id number] 2011 Medicaid [id number] 2011 Unknown [id number] 1983 Unknown [id number] 2.16.840.1.420090.3.579.2.668 1983 Unknown [id number] 2.16.840.1.047374.3.579.2. 1983 Unknown [id number] 2.16.840.1.893797.3.579.2. 1983 Unknown [id number] 2.16.840.1.515420.3.579.2.62 1983 Unknown [id number] 2.16.840.1.737251.3.579.2. 1983 Unknown [id number] 2.16.840.1.107764.3.579.2.627 1983 Unknown [id number] 2.16.840.1.149329.3.579.2.7 1983 Unknown [id number] 2.16.840.1.327480.3.579.2.627 1983 Unknown [id number] 2.16.840.1.323556.3.579.2. 1983 Unknown [id number] 2.16.840.1.902602.3.579.2.7 1983 Unknown [id number] 2.16.840.1.362040.3.579.2.627 1983 Unknown [id number] 2.16.840.1.285542.3.579.2.627 1983 Unknown [id number] 2.16.840.1.268748.3.579.2.627 1983 Unknown [id number] 2.16.840.1.870620.3.579.2.627 1983 Unknown [id number] 2.16.840.1.671654.3.579.2.627 1983 Unknown [id number] 2.16.840.1.230673.3.579.2.627 1983 Unknown [id number] 2.16.840.1.744700.3.579.2.627 Unknown [id number] 2.16.840.1.840395.3.579.2.462 Unknown [id number] 2.16.840.1.232406.3.579.2.462 Unknown [id number] 2.16.840.1.911911.3.579.2.462 Unknown [id number] 2.16.840.1.066562.3.579.2.462 Unknown [id number] 2.16.840.1.017043.3.579.2.462 Unknown [id number] 2.16.840.1.851438.3.579.2.462 Unknown [id number] 2.16.840.1.248308.3.579.2.462 Unknown [id number] 2.16.840.1.673945.3.579.2.462 Unknown [id number] 2.16840.1.491900.3.579.2.462 Unknown [id number] 2.16840.1.133944.3.579.2.462 Social History Date Type Detail Facility Start: 08-21-2020 End: 02-28-2024 Light tobacco smoker (finding) [facility] Comment on above: Just quit smoking Start: 1985 Sex Assigned At Female A [facility] Start: 10-09-2012 End: 03-10-2022 Tobacco smoking status NHIS Smokes tobacco daily [facility] Work Phone: History of tobacco use Cigarette Smoker C [facility] Work Phone: Start: 10-09-2012 End: 11-07-2022 Cigarettes smoked current (pack per day) - Reported 1 [facility] Start: 10-09-2012 End: 03-19-2024 Tobacco use and exposure Smokeless tobacco non-user [facility] Work Phone: Start: 10-25-2021 End: 09-04-2024 Alcohol intake Current non-drinker of alcohol (finding) [facility] Start: 04-22-2020 End: 06-02-2020 History SDOH Alcohol Frequency 1 [facility] Start: 03-18-2020 End: 06-02-2020 History SDOH Social Connections Phone 2 [facility] Start: 03-18-2020 History SDOH Social Connections Living 8 [facility] Start: 03-18-2020 History SDOH Physica l Activity DPW 7 [facility] Start: 03-18-2020 History SDOH Physica l Activity MPS 15 [facility] Start: 03-18-2020 History SDOH Stress 3 [facility] Start: 03-23-2020 History SDOH Financial 5 [facility] Start: 03-17-2020 Education 21 [facility] Start: 03-11-2021 End: 03-10-2022 Tobacco Comment 03/10- has cut down to 4 cigs/day [facility] Start: 10-15-2021 End: 03-10-2022 Exposure to SARS-CoV-2 (event) Not sure [facility] Start: 08-17-2022 End: 04-11-2023 Tobacco smoking status NHIS Unknown if ever smoked [facility] Start: 12-04-2020 None [facility] Start: 12-04-2020 Cigarettes [facility] Start: 03-17-2020 End: 11-07-2022 Social connection and isolation panel [facility] Do you belong to any clubs or organizations such as alevism groups, unions, fraternal or athletic groups, or school groups? No [facility] Are you now , , , , never or living with a partner? Living with partner [facility] How often to you hav e a drink containing alcohol? Never [facility] How many standard drinks containing alcohol do you have on a typical day? 1 or 2 [facility] How hard is it for y ou to pay for the very basics like food, housing, medical care, and heating Not hard at all [facility] Do you feel stress - tense, restless, nervous, or anxious, or unable to sleep at night because your mind is troubled all the time - these days [OSQ] To some extent [facility] (I/We) worried lopez er (my/our) food would run out before (I/we) got money to buy more. Never true [facility] Start: 04-06-2020 Gender identity Identifies as female gender (finding) [facility] Start: 04-06-2020 Sexual orientation Heterosexual (fin isabell) [facility] Start: 03-19-2024 End: 12-25-2024 Tobacco smoking status NHIS Ex-smoker [facility] Comment on above: Just quit smoking History of tobacco use Current smoker [facility] Sexual Orientation [facility] Start: 03-28-2019 Sex Female (finding) [facility] NEGATED: Highlighted row [facility] Functional Status Date Assessment Result Facility 11-10-[address] [facility] 11-10-2024 Functional Status Standard Safet y ID band on, Allergy Band on, Call device within reach, Bed in low position, Wheels locked, Upper/Half-Length side-rails up, Phone within reach, Safety level maintained [facility] 08-16-2024 Functional Status [facility] [facility] 12-08-2023 Functional Status Nurse Safety C zoila q2hrs Performed Other: 7a-12p [facility] 12-08-2023 Functional Status Lunch Percent [facility] 12-08-2023 Functional Status Mobile home [facility] 12-08-2023 Functional Status bilateral knee high applied/on [facility] 12-08-2023 Functional Status Room check performed [facility] 12-08-2023 Functional Status [facility] 12-08-2023 Functional Status [facility] 12-07-2023 Functional Status [facility] 12-07-2023 Functional Status [facility] 12-07-2023 Functional Status [facility] 12-07-2023 Functional Status Sensory Deficits None [facility] 12-07-2023 Functional Status Patient Identi fied Identification band, Verbal [facility] 12-07-2023 Functional Status Maintained [facility] 12-02-2023 [facility] 12-02-2023 Functional Status ID band on, Allergy Band on [facility] 11-29-2023 Functional Status Sensory Deficits None [facility] 08-01-2023 Functional Status Standard Safet y ID band on, Call device within reach, Bed in low position, Wheels locked, Bedside Cart Locked, Safety level maintained [facility] 08-01-2023 Functional Status [facility] 05-16-2023 Functional Status Sensory Deficits None [facility] 03-01-2023 Functional Status Independent [facility] 02-25-2023 Functional Status Independent [facility] 02-25-2023 Functional Status ID band on [facility] 08-04-2022 Functional Status Ambulating in palafox, Up ad jass [facility] 06-04-2022 Functional Status Independent [facility] 01-13-2015 Are you deaf, or do you have serious difficulty hearing No 01/13/2015 5:58 PM EDGeovanna Pelayo RN No [facility] 01-13-2015 Are you blind, or do you have serious difficulty seeing, even when wearing glasses No 01/13/2015 5:58 PM EDGeovanna Pelayo RN No [facility] 01-13-2015 Do you have serious difficulty walking or climbing stairs No 01/13/2015 5:58 PM EDGeovanna Pelayo RN No [facility] 01-13-2015 Do you have difficul ty dressing or bathing No 01/13/2015 5:58 PM EDGeovanna Pelayo RN No [facility] 01-13-2015 Because of a physica l, mental, or emotional condition, do you have difficulty doing errands alone such as visiting a physician's office or shopping No 01/13/2015 5:58 PM Geovanna Winn RN No [facility] Mental Status Date Assessment Result Facility 11-10-2024 Mental Status Orientation Oriented x 4 [facility] 11-10-2024 Mental Status [facility] 08-16-2024 Mental Status Orientation Oriented x 4 [facility] 08-16-2024 Mental Status [facility] 12-08-2023 Mental Status Oriented x 4 [facility] 12-07-2023 Mental Status [facility] 12-02-2023 Mental Status Orientation Oriented x 4 [facility] 12-02-2023 Mental Status [facility] 08-01-2023 Mental Status Orientation Oriented x 4 [facility] 08-01-2023 Mental Status [facility] 04-11-2023 Cognitive function Level Of Cons ciousness Awake;Alert;Appropriate;Fol lows Commands [facility] Work Phone: 03-01-2023 Mental Status Oriented x 4 [facility] 02-25-2023 Mental Status Orientation Oriented x 4 [facility] 02-25-2023 Mental Status [facility] 08-17-2022 Cognitive function Level Of Cons ciousness Awake;Alert;Appropriate;Fol lows Commands [facility] Work Phone: 08-04-2022 Mental Status Orientation Oriented x 4 [facility] 06-04-2022 Mental Status Orientation Oriented x 4 [facility] 01-13-2015 Because of a physica l, mental, or emotional condition, do you have serious difficulty concentrating, remembering, or making decisions No 01/13/2015 5:58 PM EDT Geovanna Bourne RN No [facility] Clinical Notes 03-28-2012 to 01-01-2025 Telephone Encounter - Val Mejias LPN - 01/01/2025 2:09 PM EDTTelephone Encounter - Val Mejias LPN - 01/01/2025 2:09 PM EDT Note Date & Type Note Facility 01-01-2025 Telephone encounter Note Received abdomen us from [facility]. Placed in provider's inbox for review. Route to MA scanning [facility] 01-01-2025 Miscellaneous Notes Received abdomen us from [facility]. Placed in provider's inbox for review. Route to MA scanning documented in this encounter [facility] 01-01-2025 Radiology Diagnostic study note [facility] Imaging Services [address] [place] [address] Abdomen Limited MR#: [id number] Acct: [id number] Name: DEANDRA MCCRAY Rep #: [id number] : 1985 F 39 From: Catia Moran MD PCP: Dr. Jasbir Childress MD Status: REG CLI Study:Abdomen Limited Date of Exam: 03/20 Exam# [id number] Ordering Dr: Destini Bain BILLING MANAGER-C EXAM: US Abdomen Limited, Right Upper Quadrant CLINICAL INDICATION: LUQ PAIN TECHNIQUE: Real-time ultrasound of the right upper quadrant with image documentation. COMPARISON: No relevant prior studies available. FINDINGS: LIVER: Liver measures up to 15.1 cm. Fatty infiltration of the liver. No intrahepatic bile duct dilation. GALLBLADDER: Negative Rodriguez's sign was reported by the pharmacogeneticist. No gallstones. COMMON BILE DUCT: Unremarkable as visualized. No stones. No dilation. Commonbile duct measures 0.33 cm in diameter. PANCREAS: Unremarkable as visualized. RIGHT KIDNEY: Unremarkable. No stones. No hydronephrosis. The right kidney measures 11.1 x 4.8 x 5.4 cm. SPLEEN: Spleen measures of the 10.6 cm. US/Abdomen Limited IMPRESSION: Fatty infiltration of the liver. Reading Location: [facility] CC: BILLING MANAGER-C Destini Bain; Dr. Jasbir Childress MD ~ Hydro Plant Site Manager: Signed [facility] 12-25-2024 Telephone encounter Note Images from the original note were not included. Michele Gandhi MD You4 minutes ago (12:06 PM) Done rhonda [facility] 12-25-2024 Miscellaneous Notes Images from the original note were not included. Michele Gandhi MD You4 minutes ago (12:06 PM) Done rhonda Received cardiac clearance from [facility] for colonoscopy/EGD with MAC sedation. Scheduled TBD. Form placed in Dr. Gandhi's door box for review. Destini Gerard LPN documented in this encounter [facility] 12-25-2024 Telephone encounter Note Received cardiac clearance from [facility] for colonoscopy/EGD with MAC sedation. Scheduled TBD. Form placed in Dr. Gandhi's door box for review. Destini Gerard LPN [facility] 11-27-2024 Evaluation note Diagnosis Onset Date Resolution Bloating acute November 27, 2024 2:23pm Constipation acute November 27 2:23pm Nausea acute November 27, 2024 2:23pm Abdominal pain noneactive November 27, 2024 2:23pm Bloating acute December 25, 2024 10:00am Constipation acute December 25 10:00am LUQ pain acute December 25, 2024 10:00am Nausea acute December 25, 2024 10:00am [facility] Work Phone: [phone] Telephone encounter Note* Telephone Encounter - Robert Argueta - 11/11/2024 10:18 AM EDT Left voicemail to reschedule with Dr. Wilder [facility]05-19-2025 Miscellaneous Notes* Telephone Encounter - Robert Argueta - 11/11/2024 10:18 AM EDT Left voicemail to reschedule with Dr. Wilder * Telephone Encounter - Robert Argueta - 11/11/2024 10:18 AM EDT ----- Message from Giovana Kramer PA-C sent at 11/11/2024 8:51 AM EDT ----- She is Karen Queener patient and has eventually seen Dr Meño Escobedo (neurology) Am not the right provider for her, she should see Dr Wilder. Please re-schedule Giovana Kramer PA-C [facility] Telephone encounter Note * Telephone Encounter - Robert Argueta - 11/11/2024 10:18 AM EDT ----- Message from Giovana Kramer PA-C sent at 11/11/2024 8:51 AM EDT ----- She is Karen Queener patient and has eventually seen Dr Meño Escobedo (neurology) Am not the right provider for her, she should see Dr Wilder. Please re-schedule Giovana Kramer PA-C [facility]05-18-2025 Hospital Discharge instructions Patient Education 11/10/2024 08:56:28 Myofascial Pain Syndrome Myofascial Pain Syndrome Your pain is caused by a state of chronic muscle tension. This condition is called by various names: myofascial pain, fibrositis, and trigger point pain. 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 It can also be caused by emotional stress, such as problems on the job or in your personal life. Sometimes there is no obvious cause. The pain can happen in the area of the muscle spasm or at a site distant to it. For example, spasm of a neck muscle can cause headache. Spasm of the muscle near the shoulder blade can cause pain shooting down the arm. Home care Try to identify the factors that may be causing your problem and change them: oIf you feel that emotional stress is a cause of your pain, learn methods to better deal with the stress in your life. These may include regular exercise, muscle relaxation techniques, meditation, orsimply taking time out for yourself. Talk with your healthcare provider or go to a local bookstore and review the many books and tapes about reducing stress. oIf you feel that physical stress is a cause for your pain, try to change any poor work habits. You may use bbhu-uws-xvjpcox pain medicine to control pain, unless another medicine was prescribed.If you have chronic liver or kidney disease or ever had a stomach ulcer or gastrointestinal bleeding, talk with your healthcare provider before using these medicines. Apply an ice pack over the injured area for 15 to 20 minutes every 3 to 6 hours. You should do thisfor the first 24 to 48 hours. You can make an ice pack by filling a plastic bag that seals at the top with ice cubes and then wrapping it with a thin towel. Be careful not to injure your skin with the ice treatments. Ice should never be applied directly to skin. Continue the use of ice packs for relief of pain and swelling as needed. After 48 hours, apply heat (warm shower or warm bath) for 15 to20 minutes several times a day, or alternate ice and heat. Massage the trigger point and stretch out the muscle. Trigger point massage can be done by applyingheat to the area to warm and prepare the muscle. Then have someone apply steady thumb pressure directly on the knot in the muscle for 30 seconds. Release the pressure, then massage the surrounding muscle. Repeat the process, applying more pressure to the trigger point each time. Do this up to the limit of pain. With each treatment, the trigger point should become less tender and the pain should decrease. You can apply local pressure to trigger points in the back by lying on the floor with a tennis ball under the trigger point. Follow-up care Follow up with your healthcare provider, or as advised. You may need physical therapy if you don t respond to home treatment alone. Call 911 Call 911 if you have: A trigger point in the chest muscles, pain that becomes more severe, lasts longer, or spreads into your shoulder, arm, or jaw Chest pain or discomfort Trouble breathing with or without chest discomfort Sweating, lightheadedness, nausea, or vomiting along with chest discomfort Sudden weakness or numbness in the arm, leg, or face, especially if this happens on one side of thebody When to seek medical advice Call your healthcare provider right away if any of these occur: A week passes and you have not improved If your pain worsens, regardless of its location [id number] [employer]. [address] [place] [address], [place] [address]. All rights reserved. This information is not intended as a substitute for professional medical care. Always follow yourhealthcare professional's instructions. Follow Up Care 11/10/2024 06:19:19 With:RHONDA LEA APRN-GEOGRAPHY HEAD Address: [address] [place] [address] [place] [phone] When:2-4 days [facility]25 Note Discharge Instructions Thank you for allowing [facility] to assist you with your healthcare needs. The following is importantdischarge information regarding your hospital visit. Diagnosis from Today's Visit Myofascial low back pain What to Do Next Instructions from Your Care Team Please follow-up with your family physician early this coming week to discuss the dosing of your medications. Other than your chloride being up a little bit the rest of your laboratory studies here look good. Your back discomfort I think is more musculoskeletal at this point. Your urine showed no sign of infection No qualifying data available. Post Acute Orders No qualifying data available. You Need to Schedule the Following Appointments Follow Up with RHONDA LEA When:Within 2-4 days Where:[address] [facility] [place] [phone] Allergies Tylenol with Codeine (Moderate) Migraine Bleach rash Paxil vomiting Medications Please ask your primary doctor or pharmacist before taking any other medication not listed, including over the counter drugs, herbal medications, vitamins and or supplements as they may interact withur home medications. What How Much When Instructions Last Dose Unchanged acetaminophen (acetaminophen 500 mg oral tablet) 2 tab(s) by mouth Three (3) times a day as needed for pain or fever Unchanged albuterol (Albuterol (Eqv-Proventil HFA) 90 mcg/ inh inhalation aerosol) 2 puff(s) by inhalation Every 6 hours Unchanged aspirin (aspirin 81 mg oral delayed release tablet) 1 tab(s) by mouth Once a day Unchanged buPROPion (BuPROPion (Eqv-Wellbutrin SR) 150 mg/ 12 hours oral tablet, extended release) Unchanged gabapentin (gabapentin 300 mg oral capsule) 1-3 caps by mouth Daily at bedtime Unchanged ibuprofen (ibuprofen 200 mg oral tablet) 2 tab(s) by mouth Every 6 hours as needed for pain or fever Unchanged naproxen (naproxen 500 mg oral tablet) 1 tab(s) by mouth Two (2) times a day as needed for Pain Unchanged omeprazole (omeprazole 20 mg oral delayed release capsule) 1 cap by mouth Once a day Unchanged rimegepant (Nurtec ODT 75 mg oral tablet, disintegrating) 1 tab(s) by mouth Every 24 hours as needed for as needed for migraine headache not to exceed 75 mg in 24 hours Unchanged topiramate (topiramate 100 mg oral tablet) take 1 tablet by mouth at bedtime Please take this list to your next doctor s visit. Bring all medications you take, including over the counter medications, herbals and other supplements with you to your doctor s visit. Patients and families are reminded to discard old lists and to update any records with all medication providers or retail pharmacies. Education Materials Myofascial Pain Syndrome Your pain is caused by a state of chronic muscle tension. This condition is called by various names: myofascial pain, fibrositis, and trigger point pain. 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 It can also be caused by emotional stress, such as problems on the job or in your personal life. Sometimes there is no obvious cause. The pain can happen in the area of the muscle spasm or at a site distant to it. For example, spasm of a neck muscle can cause headache. Spasm of the muscle near the shoulder blade can cause pain shooting down the arm. Home care Try to identify the factors that may be causing your problem and change them: oIf you feel that emotional stress is a cause of your pain, learn methods to better deal with the stress in your life. These may include regular exercise, muscle relaxation techniques, meditation, orsimply taking time out for yourself. Talk with your healthcare provider or go to a local bookstore and review the many books and tapes about reducing stress. oIf you feel that physical stress is a cause for your pain, try to change any poor work habits. You may use kkff-irx-uhvdavp pain medicine to control pain, unless another medicine was prescribed.If you have chronic liver or kidney disease or ever had a stomach ulcer or gastrointestinal bleeding, talk with your healthcare provider before using these medicines. Apply an ice pack over the injured area for 15 to 20 minutes every 3 to 6 hours. You should do thisfor the first 24 to 48 hours. You can make an ice pack by filling a plastic bag that seals at the top with ice cubes and then wrapping it with a thin towel. Be careful not to injure your skin with the ice treatments. Ice should never be applied directly to skin. Continue the use of ice packs for relief of pain and swelling as needed. After 48 hours, apply heat (warm shower or warm bath) for 15 to20 minutes several times a day, or alternate ice and heat. Massage the trigger point and stretch out the muscle. Trigger point massage can be done by applyingheat to the area to warm and prepare the muscle. Then have someone apply steady thumb pressure directly on the knot in the muscle for 30 seconds. Release the pressure, then massage the surrounding muscle. Repeat the process, applying more pressure to the trigger point each time. Do this up to the limit of pain. With each treatment, the trigger point should become less tender and the pain should decrease. You can apply local pressure to trigger points in the back by lying on the floor with a tennis ball under the trigger point. Follow-up care Follow up with your healthcare provider, or as advised. You may need physical therapy if you don t respond to home treatment alone. Call 911 Call 911 if you have: A trigger point in the chest muscles, pain that becomes more severe, lasts longer, or spreads into your shoulder, arm, or jaw Chest pain or discomfort Trouble breathing with or without chest discomfort Sweating, lightheadedness, nausea, or vomiting along with chest discomfort Sudden weakness or numbness in the arm, leg, or face, especially if this happens on one side of thebody When to seek medical advice Call your healthcare provider right away if any of these occur: A week passes and you have not improved If your pain worsens, regardless of its location [phone] [employer]. [address] [place] [address], [place] [address]. All rights reserved. This information is not intended as a substitute for professional medical care. Always follow yourhealthcare professional's instructions. Additional Information VACCINATE! IT SAVES LIVES! Members of the community who have not yet received the COVID-19 vaccine and would like to receive it can visit one of [facility] vaccine clinics. There are many vaccine clinic locations within the [facility]. For locations and available times, please visit www.gettheshot.coronavirus.[place].gov/. It is important to note that some COVID mobile vaccine clinics are held outdoors and may be canceled in rainy or stormy conditions. To learn more about pediatric vaccinations (ages 5-11), we invite you to visit the [facility] webpage. https://www.[facility].org/pages/1263-Cpxbw-Ntpcwbpwrjj-Oqxfxcddyu-Maotv-Npu stions.htmlTo learn more about the COVID-19 vaccine, we invite you to visit the CDC website for a list of frequently asked questions. https://www.cdc.gov/coronavirus/2019-ncov/vaccines/faq.html [facility] Patient Portal Access Instructions: Stay connected with your healthcare team and access your personal medical information anytime with the [facility] Patient Portal. If you would like a full copy of your medical records please contact the [facility] Medical Records Department Monday through Monday between 8a.m. and 4:30p.m. Please follow the directions below to access the portal: 1.Access the email account you provided upon registration to the [facility].2.Look for an invitation email from [facility].3.Open the email and access the invitation link: Accept Invitation to [facility]4.Fill in the required rose to create your account. Sign into [email or web address] with your username and password that you created in the above steps to stay up to date. You can then view a summary of results, a summary of your visits, and the ability to download your summaries to your computer or send the information securely to a physician. Remember that your healthcare information is confidential, so carefully consider who you will allow to register on the [facility] Patient Portal for access to your information. You can also access the [facility] Patient Portal on the [employer] germain. Simply click on Health Records under [employer] and then click on the [employer] logo. HOW TO SAFELY DISPOSE OF PRESCRIPTION MEDICATIONS Please use one of the following methods to safely dispose of your unused medications. 1.Use a drug disposal kit: the drug disposal pouch allows you to safely discard your old and unuseddrugs. Ask your nurse to give you one when you are discharged.2.Visit a local take-back location: Many local pharmacies and police departments have programs that collect old and unwanted prescriptiondrugs. Call your local pharmacy or go to http://bit.Texxi/8P8Hl8d to find one close to you.3.Make use of household items: Use cat litter or old coffee grounds to dispose medications if other options arenot available. Mix your drugs with these household products, seal them in an airtight container andthrow it into the garbage. Call [facility]: [phone] to be sure your drugs can be disposed of in this way. Some medicines may require a different approach.4.Never flush your medications down the toilet. IF YOU HAVE BEEN PRESCRIBED AN OPIOIDS FOR PAIN If you have been prescribed an opioid (such as hydrocodone, oxycodone or morphine), it is critical to understand the possible side effects and risks of opioid pain medications. Even when taken as directed, opioids can have several side effects including: Tolerance, meaning you might need to take more of a medication for the same pain relief. Nausea, vomiting and/or constipation. Sleepiness, dizziness, dry mouth, confusion, depression or itching. Physical dependence, meaning you have withdrawal symptoms when a medication is stopped ? this can develop within a few days. KNOW YOUR RESPONSIBILITIES It is important to know exactly how much and how often to take the opioid pain medications you are prescribed. Never take opioids in higher amounts or more often than prescribed. Do not combine opioids with alcohol or other drugs that cause drowsiness, such as benzodiazepines, also known as benzos,including diazepam and alprazolam, muscle relaxants or sleep aids. Never sell or share prescriptionopioids. This is illegal. Store opioids in a secure place and out of reach of others (including children, family, friends and visitors). The last page(s) of this document has been signed and retained as a CHART COPY Signatures Patient Education Materials Myofascial Pain Syndrome Medication Leaflets My discharge plan and instructions have been reviewed and explained to me and IMAHENDRA AMBERLY M understand my current condition and have read and understand these discharge instructions. I have received a written copy of the plan/instructions. If I have questions, I am aware that I should contactmy doctor. Patient/Kiln Drawer Signature: Date/Time: Relationship to Patient: Witness Name/Signature: Date/Time: [facility]05-18-2025 Note* Exam Date Time Procedure Performing Provider Status 11/10/24 8:23 AM XR Chest 2 Views BRIONNA ISAAC MD; A [facility] (Verified) [id number] ORIGINAL EXAMINATION: TWO XRAY VIEWS OF THE CHEST 11/10/2024 8:23 am COMPARISON: 08/16/2024 HISTORY: ORDERING SYSTEM PROVIDED HISTORY: Reason for Exam: SOB FINDINGS: Normal cardiomediastinal silhouette. Clear lungs, sharp costophrenic angles. No pneumothorax. Intact bones. IMPRESSION: Normal chest radiograph Interpreted by: Brionna Isaac Preliminary Report By: Brionna Isaac Electronically signed By Brionna Isaac Dictated Date: 11/10/2024 8:29:21 AM Prelim Date: 11/10/2024 8:29:57 AM Sign Date: 11/10/2024 8:29:57 AM Ordering Provider: JERRELL MANUEL [facility]05-14-2025 Telephone encounter Note* Telephone Encounter - Jeimy Davis RN - 11/06/2024 10:02 AM EDT Patient calls and notified of below. Voices understanding. Jeimy Davis RN [facility]05-14-2025 Miscellaneous Notes* Telephone Encounter - Jeimy Davis RN - 11/06/2024 10:02 AM EDT Patient calls and notified of below. Voices understanding. Jeimy Davis RN * Telephone Encounter - Lovely Ham OCCA - 11/06/2024 9:55 AM EDT TC to patient as there should be 3 refills of the Topamax at [facility] from last prescription.Noanswer, left VM to return call. PA for Nurtec has been submitted to insurance and office is currently waiting on a determination. MALINDA Stallings * Telephone Encounter - Jeimy Davis RN - 10/31/2024 10:14 AM EDT Patient calling and states that she needs a refill on Topiramate. Patient states that pharmacy is also needing a prior authorization done for Nurtec. The patient has been identified by name and date of : Yes Caregiver verified no other encounters exist for this prescription request: Yes Caregiver confirmed with patient/requestor that no other refills are due, in the near future, with this provider at this time: Yes The last office visit in the department: 08/06/2024 Does the patient have a future office visit with this provider/department: Y 11/13/2024 Requested Prescriptions Pending Prescriptions Disp Refills topiramate (TOPAMAX) 100 mg tablet 30 tablet 3 Sig: Take 1 tablet by mouth daily at bedtime. Jeimy Davis RN October 31, 2024 10:15 AM [facility] Telephone encounter Note * Telephone Encounter - Lovely Ham OCCA - 11/06/2024 9:55 AM EDT TC to patient as there should be 3 refills of the Topamax at [facility] from last prescription.Noanswer, left VM to return call. PA for Nurtec has been submitted to insurance and office is currently waiting on a determination. MALINDA Stallings [facility]05-08-2025 Telephone encounter Note* Telephone Encounter - Jeimy Davis RN - 10/31/2024 10:14 AM EDT Patient calling and states that she needs a refill on Topiramate. Patient states that pharmacy is also needing a prior authorization done for [facility]. The patient has been identified by name and date of : Yes Caregiver verified no other encounters exist for this prescription request: Yes Caregiver confirmed with patient/requestor that no other refills are due, in the near future, with this provider at this time: Yes The last office visit in the department: 08/06/2024 Does the patient have a future office visit with this provider/department: Y 11/13/2024 Requested Prescriptions Pending Prescriptions Disp Refills topiramate (TOPAMAX) 100 mg tablet 30 tablet 3 Sig: Take 1 tablet by mouth daily at bedtime. Jeimy Davis RN October 31, 2024 10:15 AM [facility]04-21-2025 NoteHNO ID: [id number] Author: ABIOLA POPE MD Service: ? Author Type: Physician Type: Progress Notes Filed: 10/14/2024 13:09 Note Text: E-Consult Response In response to your eConsult request to Nephrology for Deandra Mccray regarding: hypokalemia and metabolic acidosis . History of present illness provided through requesting provider documentation and current treatment plan was reviewed. Based on the patient history provided, my impression is as follows: Female patient 39 YO with PH of PFO, TIA, depression, endometriosis E consult was for evaluation of hypokalemia and metabolic acidosis Labs reviewed , she has mild hypokalemia and mild metabolic acidosis (with elevated urine pH), unlikely related to her active complaints of air hunger She is on totipalmate which can cause renal tubular acidosis. She also has diarrhea which can lead to metabolic acidosis and hypokalemia At this point she can get replacement for hypokalemia with potassium chloride 20 meq once daily . Also sodium bicarbonate 325 mg twice daily The other option is adding potassium citrate 1080 mg three times daily to address both hypokalemia and metabolic acidosis Need to check serum magnesium with the next labs No appointment necessary Abiola Pope MD [facility] History of Present illness Narrative* Abiola Pope MD - 10/14/2024 1:00 PM EDT E-Consult Response In response to your eConsult request to Nephrology for Deandra Mccray regarding: hypokalemia and metabolic acidosis . History of present illness provided through requesting provider documentation and current treatmentplan was reviewed. Based on the patient history provided, my impression is as follows: Female patient 39 YO with PH of PFO, TIA, depression, endometriosis E consult was for evaluation of hypokalemia and metabolic acidosis Labs reviewed , she has mild hypokalemia and mild metabolic acidosis (with elevated urine pH), unlikely related to her active complaints of air hunger She is on totipalmate which can cause renal tubular acidosis. She also has diarrhea which can lead to metabolic acidosis and hypokalemia At this point she can get replacement for hypokalemia with potassium chloride 20 meq once daily . Also sodium bicarbonate 325 mg twice daily The other option is adding potassium citrate 1080 mg three times daily to address both hypokalemia and metabolic acidosis Need to check serum magnesium with the next labs No appointment necessary Abiola Pope MD October 14, 2024 documented in [facility] encounterC[facility] Telephone encounter Note * Telephone Encounter - Jm Childress MD - 10/14/2024 8:24 AM EDT Will check with kidney doctor to see what they think of the electorlytes. There is a potassium bicarbonate supplement that may help even things out. Will get back to you. Jm Childress MD [facility]04-21-2025 Miscellaneous Notes* Telephone Encounter - Jm Childress MD - 10/14/2024 8:24 AM EDT Will check with kidney doctor to see what they think of the electorlytes. There is a potassium bicarbonate supplement that may help even things out. Will get back to you. Jm Childress MD documented in this encounterC[facility] Telephone encounter Note * Telephone Encounter - Jm Childress MD - 10/11/2024 2:00 PM EDT E-consult placed to nephrology. Encounter Diagnosis ICD-10-CM 1. Hypokalemia E87.6 E-CONSULT NEPHROLOGY 2. Hyperchloremia E87.8 E-CONSULT NEPHROLOGY 3. Hypocarbia R79.81 E-CONSULT NEPHROLOGY Jm Childress MD [facility]04-18-2025 Miscellaneous Notes* Telephone Encounter - Jm Childress MD - 10/11/2024 2:00 PM EDT E-consult placed to nephrology. Encounter Diagnosis ICD-10-CM 1. Hypokalemia E87.6 E-CONSULT NEPHROLOGY 2. Hyperchloremia E87.8 E-CONSULT NEPHROLOGY 3. Hypocarbia R79.81 E-CONSULT NEPHROLOGY Jm Childress MD documented in this encounterC[facility]03-[facility] Miscellaneous Notes* Telephone Encounter - Marta Ellington RN - 09/23/2024 9:12 AM EDT I called patient and left message on voicemail to either call the syncope lab or view my chart message regarding cancelling tilt table test for October 02. Patient recently had a tilt test in [place] Saul PA-C stated to cancel upcoming tilt test. documented in this encounterC[facility] Telephone encounter Note * Telephone Encounter - Marta Ellington RN - 09/23/2024 9:12 AM EDT I called patient and left message on voicemail to either call the syncope lab or view my chart message regarding cancelling tilt table test for Juanis 9th. Patient recently had a [place] test in [place] Karen Saul PA-C stated to cancel upcoming tilt test. [facility]03-24-2025 Telephone encounter Note* Telephone Encounter - Jm Childress MD - 09/16/2024 3:13 PM EDT The following approved medication requests have been transmitted electronically. Requested Prescriptions Signed Prescriptions Disp Refills albuterol HFA (PROVENTIL HFA, VENTOLIN HFA) 90 mcg/actuation inhaler 6.7 Each 2 Sig: Inhale 2 Puffs as instructed every 6 hours as needed. Authorizing Provider: JM CHILDRESS MD [facility]03-24-2025 Miscellaneous Notes* Telephone Encounter - Jm Childress MD - 09/16/2024 3:13 PM EDT The following approved medication requests have been transmitted electronically. Requested Prescriptions Signed Prescriptions Disp Refills albuterol HFA (PROVENTIL HFA, VENTOLIN HFA) 90 mcg/actuation inhaler 6.7 Each 2 Sig: Inhale 2 Puffs as instructed every 6 hours as needed. Authorizing Provider: JM CHILDRESS MD * Telephone Encounter - Destini Umana MA - 09/16/2024 12:00 PM EDT Pharmacy verified in [employer]. Patient has been identified by name and date of : Yes Patient aware RX will be sent to pharmacy. No need to notify patient. Pharmacy phones for refill(s): Requested Prescriptions Pending Prescriptions Disp Refills albuterol HFA (PROVENTIL HFA, VENTOLIN HFA) 90 mcg/actuation inhaler 6.7 Each 2 Si Puffs every 6 hours as needed. Date of last office visit : 08/14/2024 Date of next office visit : Visit date not found Last 2 Encounter Wt Readings: Date: Wt: 09/04/2024 68 kg (150 lb) 09/03/2024 67.6 kg (149 lb) Please advise. Destini Umana MA documented in this encounterC[facility] Telephone encounter Note * Telephone Encounter - Destini Umana MA - 09/16/2024 12:00 PM EDT Pharmacy verified in [employer]. Patient has been identified by name and date of : Yes Patient aware RX will be sent to pharmacy. No need to notify patient. Pharmacy phones for refill(s): Requested Prescriptions Pending Prescriptions Disp Refills albuterol HFA (PROVENTIL HFA, VENTOLIN HFA) 90 mcg/actuation inhaler 6.7 Each 2 Si Puffs every 6 hours as needed. Date of last office visit : 08/14/2024 Date of next office visit : Visit date not found Last 2 Encounter Wt Readings: Date: Wt: 09/04/2024 68 kg (150 lb) 09/03/2024 67.6 kg (149 lb) Please advise. Destini Umana MA [facility]03-24-2025 Telephone encounter Note* Telephone Encounter - Rashmi AzulCUCO - 09/16/2024 8:31 AM EDT Prescription Refill Information The patient has been identified by name and date of : y Caregiver verified no other encounters exist for this prescription request: Yes Caregiver confirmed with patient/requestor that no other refills are due, in the near future, with this provider at this time: Yes The last office visit in the department: 04/05/24 MQ Does the patient have a future office visit with this provider/department: No Requested Prescriptions Pending Prescriptions Disp Refills topiramate (TOPAMAX) 100 mg tablet 30 tablet 3 Sig: Take 1 tablet by mouth daily at bedtime. rimegepant (NURTEC ODT) 75 mg disintegrating tablet 8 tablet 5 Sig: Take 1 tablet by mouth once daily as needed. Rashmi Azul LPN September 16, 2024 8:31 AM ' [facility]03-24-2025 Miscellaneous Notes* Telephone Encounter - Rashmi Azul LPN - 09/16/2024 8:31 AM EDT Prescription Refill Information The patient has been identified by name and date of : y Caregiver verified no other encounters exist for this prescription request: Yes Caregiver confirmed with patient/requestor that no other refills are due, in the near future, with this provider at this time: Yes The last office visit in the department: 04/05/24 MQ Does the patient have a future office visit with this provider/department: No Requested Prescriptions Pending Prescriptions Disp Refills topiramate (TOPAMAX) 100 mg tablet 30 tablet 3 Sig: Take 1 tablet by mouth daily at bedtime. rimegepant (NURTEC ODT) 75 mg disintegrating tablet 8 tablet 5 Sig: Take 1 tablet by mouth once daily as needed. Rashmi Azul LPN September 16, 2024 8:31 AM ' documented in this encounterC[facility]03-12-[facility]25 Instructions* Patient Instructions* Breanne Bowden PA-C - 09/04/2024 9:14 AM EDT TAKE SITZ MARKER CAPSULE BY MOUTH. HOLD ALL LAXATIVES FOR 5 DAYS PRIOR TO X-RAY documented in this encounterCleveland Clinic Med[facility]03-12-2025 NoteHNO ID: [id number] Author: BREANNE BOWDEN PA-C Service: ? Author Type: Physician Heel Compressor Type: Progress Notes Filed: 09/04/2024 09:27 Note Text: CHIEF COMPLAINT: Patient presents with: Rectal Bleeding: Used the Linzess 145 but it gave her Miralax. Saw some some blood when wiping after taking Linzess as well. HPI Deandra Mccray is a 39 year old female here today for Rectal Bleeding (Used the Linzess 145 but it gave her diarrhea. Saw some some blood when wiping after taking Linzess as well.). Seen previously for h/o chronic constipation. Tried Linzess 290 mcg daily last GI visit which resulted in worsened diarrhea. Has previously tried lactulose, fibers, Miralax w/o relief. Currently having a BM every 8 days, constipated, straining, tenesmus, BRBPR when wiping. Reports persistent LUQ discomfort, nausea that improves with BM. States she didn't get X-ray ordered because her schedule got busy. Quit smoking around 8-9 mos. Denies emesis, unintentional weight loss. EGD/Colon 2019 Impression: - Non-bleeding internal hemorrhoids. - Biopsies were taken with a cold forceps from the entire colon for evaluation of microscopic colitis. Impression: - Normal first portion of the duodenum and second portion of the duodenum. - Erythematous mucosa in the antrum. Biopsied. - Medium-sized hiatal hernia. CONVERTED FINAL DIAGNOSIS 1. Antrum, biopsy (A) - Gastric antral mucosa with dilated mucosal capillaries, intramucosal hemorrhage and epithelial reactive changes. See comment. 2. Random colon, biopsy (B) - Colonic mucosa with no diagnostic alteration. /glw 04/23/2020 Current Outpatient Medications Medication Sig buPROPion SR (WELLBUTRIN SR) 150 mg 12 hr tablet Take 1 tablet by mouth two times a day. rimegepant (NURTEC ODT) 75 mg disintegrating tablet Take 1 tablet by mouth once daily as needed. melatonin 3 mg tablet Take 1 tablet at 9-10PM nightly. topiramate (TOPAMAX) 100 mg tablet take 1 tablet by mouth everyday at bedtime albuterol HFA (PROVENTIL HFA, VENTOLIN HFA) 90 mcg/actuation inhaler INHALE 2 PUFFS BY MOUTH EVERY 6 HOURS NEEDED DIRECTED NAPROXEN ORAL Take by mouth as needed. ibuprofen (MOTRIN) 600 mg tablet TAKE 1 TABLET BY MOUTH EVERY 6 HOURS NEEDED FOR PAIN FOR 10 DAYS WITH FOOD/MILK FOR 10 DAYS ondansetron (ZOFRAN) 4 mg tablet TAKE 1 TABLET BY MOUTH EVERY 6 HOURS NEEDED FOR NAUSEA/VOMITING FOR 5 DAYS No current facility-administered medications for this visit. 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 Leg pain, bilateral 04/26/2021 PFO (patent foramen ovale) 09/26/2011 TIA (transient ischemic attack) 09/28/2012 Tobacco use disorder PAST SURGICAL HISTORY Procedure Laterality Date CATH AND SALINE/CONTRAST SONOHYSTER/HYSTEROSALPI 2004 DELIVERY ONLY 03/25/06-baby C/S, low cervical 15 WEEK GESTATION BABY DELIVERY ONLY 2009 , low transverse DELIVERY ONLY 05/17/2011 , low transverse COLONOSCOPY FLX DX W/COLLJ SPEC WHEN PFRMD 12/19/2012 Colonoscopy COLONOSCOPY FLX DX W/COLLJ SPEC WHEN PFRMD 04/22/2020 Colonoscopy COLPOSCOPY CERVIX UPPER/ADJACENT VAGINA 2007 Colposcopy CONIZATION CERVIX W/WO DANDC RPR ELTRD EXC 2008 LEEP-Cervix ESOPHAGOGASTRODUODENOSCOPY TRANSORAL DIAGNOSTIC 12/19/2012 EGD ESOPHAGOGASTRODUODENOSCOPY TRANSORAL DIAGNOSTIC 04/22/2020 EGD EXT HYSTERECTOMY,W/PARTIAL VAGINECTO 05/29/2023 EXT HYSTERECTOMY,W/PARTIAL VAGINECTO 11/2023 INSERTION OF IUD 06/24/2013 LAPS ABD PRTMANDOMENTUM DX W/WO SPEC BR/WA SPX 2005 Laparoscopy X2 Endometriosis LAPS ABD PRTMANDOMENTUM DX W/WO SPEC BR/WA SPX 2008 Laparoscopy LIG/TRNSXJ FLP TUBE ABDL/VAG APPR UNI/BI 05/17/2011 Tubal ligation PAST SURGICAL HISTORY OF 2000 SCALP LESION TOTAL ABDOM HYSTERECTOMY 04/2024 FAMILY HISTORY Problem Relation Age of Onset other (OVARIAN REMNANT SYNDROME) Mother age 52 pulmonary other (SLE) Mother Hypertension Mother Hyperlipidemia Mother Stroke Mother Heart Failure Mother COPD Mother Coronary Artery Dis (more content not included)...[facility] 09-04-2024 History of Present illness Narrative* Breanne Bowden PA-C - 09/04/2024 8:53 AM EDT CHIEF COMPLAINT: Patient presents with: Rectal Bleeding: Used the Linzess 145 but it gave her Miralax. Saw some some blood when wiping after taking Linzess as well. HPI Deandra Mccray is a 39 year old female here today for Rectal Bleeding (Used the Linzess 145 but it gave her diarrhea. Saw some some blood when wiping after taking Linzess as well.). Seen previouslyfor h/o chronic constipation. Tried Linzess 290 mcg daily last GI visit which resulted in worsened diarrhea. Has previously tried lactulose, fibers, Miralax w/o relief. Currently having a BM every 8 days, constipated, straining, tenesmus, BRBPR when wiping. Reports persistent LUQ discomfort, nauseathat improves with BM. States she didn't get X- ray ordered because her schedule got busy. Quit smoking around 8-9 mos. Denies emesis, unintentional weight loss. EGD/Colon 2019 Impression: - Non-bleeding internal hemorrhoids. - Biopsies were taken with a cold forceps from the entire colon for evaluation of microscopic colitis. Impression: - Normal first portion of the duodenum and second portion of the duodenum. - Erythematous mucosa in the antrum. Biopsied. - Medium-sized hiatal hernia. CONVERTED FINAL DIAGNOSIS 1. Antrum, biopsy (A) - Gastric antral mucosa with dilated mucosal capillaries, intramucosal hemorrhage and epithelial reactive changes. See comment. 2. Random colon, biopsy (B) - Colonic mucosa with no diagnostic alteration. SH/glw 04/23/2020 Current Outpatient Medications Medication Sig buPROPion SR (WELLBUTRIN SR) 150 mg 12 hr tablet Take 1 tablet by mouth two times a day. rimegepant (NURTEC ODT) 75 mg disintegrating tablet Take 1 tablet by mouth once daily as needed. melatonin 3 mg tablet Take 1 tablet at 9-10PM nightly. topiramate (TOPAMAX) 100 mg tablet take 1 tablet by mouth everyday at bedtime albuterol HFA (PROVENTIL HFA, VENTOLIN HFA) 90 mcg/actuation inhaler INHALE 2 PUFFS BY MOUTH EVERY 6 HOURS NEEDED DIRECTED NAPROXEN ORAL Take by mouth as needed. ibuprofen (MOTRIN) 600 mg tablet TAKE 1 TABLET BY MOUTH EVERY 6 HOURS NEEDED FOR PAIN FOR 10 DAYS WITH FOOD/MILK FOR 10 DAYS ondansetron (ZOFRAN) 4 mg tablet TAKE 1 TABLET BY MOUTH EVERY 6 HOURS NEEDED FOR NAUSEA/VOMITINGFOR 5 DAYS No current facility-administered medications for this visit. 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 Leg pain, bilateral 04/26/2021 PFO (patent foramen ovale) 09/26/2011 TIA (transient ischemic attack) 09/28/2012 Tobacco use disorder PAST SURGICAL HISTORY Procedure Laterality Date CATH & SALINE/CONTRAST SONOHYSTER/HYSTEROSALPI 2003 DELIVERY ONLY 03/25/06-baby C/S, low cervical 15 WEEK GESTATION BABY DELIVERY ONLY 2009 , low transverse DELIVERY ONLY 05/17/2011 , low transverse COLONOSCOPY FLX DX W/COLLJ SPEC WHEN PFRMD 12/19/2012 Colonoscopy COLONOSCOPY FLX DX W/COLLJ SPEC WHEN PFRMD 04/22/2020 Colonoscopy COLPOSCOPY CERVIX UPPER/ADJACENT VAGINA 2007 Colposcopy CONIZATION CERVIX W/WO D&C RPR ELTRD EXC 2008 LEEP-Cervix ESOPHAGOGASTRODUODENOSCOPY TRANSORAL DIAGNOSTIC 12/19/2012 EGD ESOPHAGOGASTRODUODENOSCOPY TRANSORAL DIAGNOSTIC 04/22/2020 EGD EXT HYSTERECTOMY,W/PARTIAL VAGINECTO 05/29/2023 EXT HYSTERECTOMY,W/PARTIAL VAGINECTO 11/2023 INSERTION OF IUD 06/24/2013 LAPS ABD PRTM&OMENTUM DX W/WO SPEC BR/WA SPX 2005 Laparoscopy X2 Endometriosis LAPS ABD PRTM&OMENTUM DX W/WO SPEC BR/WA SPX 2007 Laparoscopy LIG/TRNSXJ FLP TUBE ABDL/VAG APPR UNI/BI 05/17/2011 Tubal ligation PAST SURGICAL HISTORY OF 2000 SCALP LESION TOTAL ABDOM HYSTERECTOMY 04/2024 FAMILY HISTORY Problem Relation Age of Onset other (OVARIAN REMNANT SYNDROME) Mother age 52 pulmonary other (SLE) Mother Hypertension Mother Hyperlipidemia Mother Stroke Mother Heart Failure Mother COPD Mother Coronary Artery Disease Father age 58 MVA (motorcycle) Hypertension Father Hyperlipidemia Father Diabetes Father Developmental problem Sister MENTAL RETARDATION/SEXUAL ADDICTION Heart Maternal Grandmother ENLARGED HEART Cancer Maternal Grandfather LUNG Heart Maternal Grandfather [place] Diabetes Maternal Grandfather Heart Paternal Grandfather [place] Stroke Paternal Grandfather Diabetes Paternal Grandfather Heart Other MGGM ENLARGED HEART Aneurysm No Family History REVIEW OF SYSTEMS Review of Systems Constitutional: Positive for fatigue. HENT: Positive for mouth sores. Respiratory: Positive for shortness of breath. Cardiovascular: Positive for palpitations. Gastrointestinal: Positive for abdominal distention, abdominal pain, constipation, diarrhea and nausea. Gas All other systems reviewed and are negative. PHYSICAL EXAM BP 112/70 Pulse 62 Ht 162.6 cm (5' 4) Wt 68 kg (150 lb) LMP 12/19/2023 (Approximate) SpO2 98% BMI 25.75 kg/m Physical Exam Constitutional: General: She is not in acute distress. Appearance: Normal appearance. She is normal weight. She is not ill-appearing, toxic-appearing or diaphoretic. HENT: Head: Normocephalic and atraumatic. Nose: Nose normal. Eyes: General: No scleral icterus. Right eye: No discharge. Left eye: No discharge. Extraocular Movements: Extraocular movements intact. Conjunctiva/sclera: Conjunctivae normal. Pupils: Pupils are equal, round, and reactive to light. Cardiovascular: Rate and Rhythm: Normal rate and regular rhythm. Pulses: Normal pulses. Heart sounds: Normal heart sounds. No murmur heard. No friction rub. No gallop. Pulmonary: Effort: No respiratory distress. Breath sounds: Normal breath sounds. No stridor. No wheezing, rhonchi or rales. Chest: Chest wall: No tenderness. Abdominal: General: Abdomen is flat. Bowel sounds are normal. There is no distension. Palpations: Abdomen is soft. There is no mass. Tenderness: There is no abdominal tenderness. There is no right CVA tenderness, left CVA tenderness, guarding or rebound. Hernia: No hernia is present. Musculoskeletal: General: Normal range of motion. Cervical back: Normal range of motion and neck supple. Skin: General: Skin is warm and dry. Neurological: General: No focal deficit present. Mental Status: She is alert and oriented to person, place, and time. Psychiatric: Mood and Affect: Mood normal. Behavior: Behavior normal. Assessment/Plan (K59.09) Chronic constipation (primary encounter diagnosis) 1. Chronic constipation (Primary) - XR ABDOMEN 2V ROUTINE SUPINE W UPRIGHT/DECUB/CTL; Future - ADULT [place] ANORECTAL MANOMETRY; Future - Plan to proceed with sit marker study, HRAM. May benefit from bowel cleanse first then starting on regular maintenance medication pending X-Ray results. Previous tx failure includes Linzess ( 72 mcg, 290 mcg) so would likely want to change to Ibsrela, Amitiza - Encouraged continued fluid intake - Declined hemorrhoidal management for now Follow up in office 3 months/PRN. Recommended to please call office/go to ER if fever, chills, chest pain, SOB, diarrhea, nausea, emesis, worsening abdominal pain, dehydration occurs I spent a total of 20 minutes on the date of the service which included preparing to see the patient, [id number] patient care, completing clinical documentation, obtaining and/or reviewing separately obtained history, performing a medically appropriate examination, counseling and educating the pat ient/family/caregiver, ordering medications, tests, or procedures, communicating with other HCPs (not separately reported), independently interpreting results (not separately reported), communicatingresults to the patient/family/caregiver, and care coordination (not separately reported). Breanne Bowden PA-C September 04, 2024 9:17 AM documented in this encounterCleveland [facility]03-11-[facility]25 NoteHNO ID: [id number] Author: BILLY LYNN MD Service: ? Author Type: Physician Type: Progress Notes Filed: 09/03/2024 14:23 Note Text: [facility] Service: Pulmonary AND Critical Care Deandra Mccray [id number] SERVICE DATE: 09/03/2024 SERVICE TIME: 1:54 PM REASON FOR CONSULT: Feeling of shortness of breath REQUESTING PROVIDER: Jm Childress MD PRIMARY CARE PHYSICIAN: Jm Childress MD Consultation requested by Dr.Jeffery Fior MD for an opinion regarding feeling of shortness of breath. My final recommendations will be communicated back to the requesting physician by way of shared Medical record or letter to requesting physician via US mail. ASSESSMENT AND PLAN Sensation of shortness of breath There is no objective evidence of lung pathology. PFTs were normal with normal DLCO Chest x-ray was normal Clinical exam was unremarkable She did not give any history of cough congestion wheezing etc. Primary symptoms of sensation of shortness of breath or inability to take deep breaths occasionally, frequent yawning. At present no further workup is required I will be happy to see her as needed SUBJECTIVE Ms. Mccray is a 39 year old female who presents for with past medical history of PFO, TIA, depression, endometriosis, GERD, genital herpes, migraine was referred to me for evaluation of sensation of shortness of breath. Patient has no prior history of asthma emphysema COPD. She used to smoke half pack of cigarettes per day for 26 years quit 8 to 9 months ago. She describes her feeling of dyspnea and sometimes I cannot take deep enough breaths. Other symptoms included frequent yawning. He states that when she has lack of sleep, has caffeine, smell of cigarettes, weather changes especially heat causes her to have sensation of inability to take deep breaths. She denies any history of wheezing or chronic cough. She had COVID in May 2021 and thinks that that had precipitated her symptoms. She never required hospitalization or any COVID-specific medications. Her workup included PFTs today in the office which were normal with normal DLCO. She had a chest x-ray in May 2021 which was normal. According to her she had another chest x-ray done at [facility] 2 weeks ago and she was told that the x-ray was normal. 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 disorder Depression (non-psychotic) Endometriosis 06/26/[address] charels Kim, diagnosed at laparoscopy, bowel involvement Genital herpes GERD (gastroesophageal reflux disease) 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 Leg pain, bilateral 04/26/2021 PFO (patent foramen ovale) 09/26/2011 TIA (transient ischemic attack) 09/28/2012 Tobacco use disorder PAST SURGICAL HISTORY: PAST SURGICAL HISTORY Procedure Laterality Date CATH AND SALINE/CONTRAST SONOHYSTER/HYSTEROSALPI 2003 DELIVERY ONLY 03/25/06-baby C/S, low cervical 15 WEEK GESTATION BABY DELIVERY ONLY 2009 , low transverse DELIVERY ONLY 05/17/2011 , low transverse COLONOSCOPY FLX DX W/COLLJ SPEC WHEN PFRMD 12/19/2012 Colonoscopy COLONOSCOPY FLX DX W/COLLJ SPEC WHEN PFRMD 04/22/2020 Colonoscopy COLPOSCOPY CERVIX UPPER/ADJACENT VAGINA 2008 Colposcopy CONIZATION CERVIX W/WO DANDC RPR ELTRD EXC 2008 LEEP-Cervix ESOPHAGOGASTRODUODENOSCOPY TRANSORAL DIAGNOSTIC 12/19/2012 EGD ESOPHAGOGASTRODUODENOSCOPY TRANSORAL DIAGNOSTIC 04/22/2020 EGD EXT HYSTERECTOMY,W/PARTIAL VAGINECTO 05/29/2023 EXT HYSTERECTOMY,W/PARTIAL VAGINECTO 11/2023 INSERTION OF IUD 06/24/2013 LAPS ABD PRTMANDOMENTUM DX W/WO SPEC BR/WA SPX 2006 Laparoscopy X2 Endometriosis LAPS ABD PRTMANDOMENTUM DX W/WO SPEC BR/WA SPX 2007 Laparoscopy LIG/TRNSXJ FLP TUBE ABDL/VAG APPR UNI/BI 05/17/2011 Tubal ligation PAST SURGICAL HISTORY OF 2000 SCALP LESION FAMILY HISTORY: FAMILY HISTORY Problem Relation Age of Onset other (OVARIAN REMNANT SYNDROME) Mother age 52 pulmonary other (SLE) Mother Hypertension Mother Hyperlipidemia Mother Stroke Mother Heart Failure Mother COPD Mother Coronary Artery Disease Father age 58 MVA (motorcycle) Hypertension Father Hyperlipidemia Father Diabetes Father Developmental problem Sister MENTAL RETARDATION/SEXUAL ADDICTION Heart Maternal Grandmother ENLARGED HEART Cancer Maternal Grandfather LUNG Heart Maternal Grandfather [place] Diabetes Maternal Grandfather Heart Paternal Grandfather [place] Stroke Paternal Grandfather Diabetes Paternal Grandfather Heart Other MGGM EN (more content not included)...[facility]03-11-2025 History of Present illness Narrative* Billy Lynn MD - 09/03/2024 1:51 PM EDT Images from the original note were not included. [facility] Service: Pulmonary & Critical Care Deandra Mccray [id number] SERVICE DATE: 09/03/2024 SERVICE TIME: 1:54 PM REASON FOR CONSULT: Feeling of shortness of breath REQUESTING PROVIDER: Jm Chidlress MD PRIMARY CARE PHYSICIAN: Jm Childress MD Consultation requested by Dr.Jeffery Fior MD for an opinion regarding feeling of shortness of breath. My final recommendations will be communicated back to the requesting physician by way of shared Medical record or letter to requesting physician via US mail. ASSESSMENT AND PLAN Sensation of shortness of breath There is no objective evidence of lung pathology. PFTs were normal with normal DLCO Chest x-ray was normal Clinical exam was unremarkable She did not give any history of cough congestion wheezing etc. Primary symptoms of sensation of shortness of breath or inability to take deep breaths occasionally, frequent yawning. At present no further workup is required I will be happy to see her as needed SUBJECTIVE Ms. Mccray is a 39 year old female who presents for with past medical history of PFO, TIA, depression, endometriosis, GERD, genital herpes, migraine was referred to me for evaluation of sensation of shortness of breath. Patient has no prior history of asthma emphysema COPD. She used to smoke half pack of cigarettes per day for 26 years quit 8 to 9 months ago. She describes her feeling of dyspnea and sometimes I cannot take deep enough breaths. Other symptoms included frequent yawning. He states that when she has lack of sleep, has caffeine, smell of cigarettes, weather changes especially heat causes her to have sensation of inability to take deep breaths. She denies any history of wheezing or chronic cough. She had COVID in May 2021 and thinks that that had precipitated her symptoms. She never required hospitalization or any COVID- specific medications. Her workup included PFTs today in the office which were normal with normal DLCO. She had a chest x-ray in May 2021 which was normal. According to her she had another chest x-ray done at [facility] 2 weeks ago and she was told that the x-ray was normal. 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 Leg pain, bilateral 04/26/2021 PFO (patent foramen ovale) 09/26/2011 TIA (transient ischemic attack) 09/28/2012 Tobacco use disorder PAST SURGICAL HISTORY: PAST SURGICAL HISTORY Procedure Laterality Date CATH & SALINE/CONTRAST SONOHYSTER/HYSTEROSALPI 2003 DELIVERY ONLY 03/25/06-baby C/S, low cervical 15 WEEK GESTATION BABY DELIVERY ONLY 2009 , low transverse DELIVERY ONLY 05/17/2011 , low transverse COLONOSCOPY FLX DX W/COLLJ SPEC WHEN PFRMD 12/19/2012 Colonoscopy COLONOSCOPY FLX DX W/COLLJ SPEC WHEN PFRMD 04/22/2020 Colonoscopy COLPOSCOPY CERVIX UPPER/ADJACENT VAGINA 2007 Colposcopy CONIZATION CERVIX W/WO D&C RPR ELTRD EXC 2008 LEEP-Cervix ESOPHAGOGASTRODUODENOSCOPY TRANSORAL DIAGNOSTIC 12/19/2012 EGD ESOPHAGOGASTRODUODENOSCOPY TRANSORAL DIAGNOSTIC 04/22/2020 EGD EXT HYSTERECTOMY,W/PARTIAL VAGINECTO 05/29/2023 EXT HYSTERECTOMY,W/PARTIAL VAGINECTO 11/2023 INSERTION OF IUD 06/24/2013 LAPS ABD PRTM&OMENTUM DX W/WO SPEC BR/WA SPX 2005 Laparoscopy X2 Endometriosis LAPS ABD PRTM&OMENTUM DX W/WO SPEC BR/WA SPX 2007 Laparoscopy LIG/TRNSXJ FLP TUBE ABDL/VAG APPR UNI/BI 05/17/2011 Tubal ligation PAST SURGICAL HISTORY OF 2000 [facility] FAMILY HISTORY: FAMILY HISTORY Problem Relation Age of Onset other (OVARIAN REMNANT SYNDROME) Mother age 52 pulmonary other (SLE) Mother Hypertension Mother Hyperlipidemia Mother Stroke Mother Heart Failure Mother COPD Mother Coronary Artery Disease Father age 58 MVA (motorcycle) Hypertension Father Hyperlipidemia Father Diabetes Father Developmental problem Sister MENTAL RETARDATION/SEXUAL ADDICTION Heart Maternal Grandmother ENLARGED HEART Cancer Maternal Grandfather LUNG Heart Maternal Grandfather [place] Diabetes Maternal Grandfather Heart Paternal Grandfather [place] Stroke Paternal Grandfather Diabetes Paternal Grandfather Heart Other MGGM ENLARGED HEART Aneurysm No Family History SOCIAL HISTORY: Social History Tobacco Use Smoking status: Former Current packs/day: 1.00 Average packs/day: 1 pack/day for 24.0 years (24.0 ttl pk-yrs) Types: Cigarettes Smokeless tobacco: Never Tobacco comments: 03/10- has cut down to 4 cigs/day Vaping Use Vaping status: Never Used Substance Use Topics Alcohol use: No Drug use: No Comment: Never MEDICATIONS: Current Outpatient Medications on File Prior to Visit Medication Sig buPROPion SR (WELLBUTRIN SR) 150 mg 12 hr tablet Take 1 tablet by mouth two times a day. rimegepant (NURTEC ODT) 75 mg disintegrating tablet Take 1 tablet by mouth once daily as needed. melatonin 3 mg tablet Take 1 tablet at 9-10PM nightly. topiramate (TOPAMAX) 100 mg tablet take 1 tablet by mouth everyday at bedtime albuterol HFA (PROVENTIL HFA, VENTOLIN HFA) 90 mcg/actuation inhaler INHALE 2 PUFFS BY MOUTH EVERY 6 HOURS NEEDED DIRECTED NAPROXEN ORAL Take by mouth as needed. ibuprofen (MOTRIN) 600 mg tablet TAKE 1 TABLET BY MOUTH EVERY 6 HOURS NEEDED FOR PAIN FOR 10 DAYS WITH FOOD/MILK FOR 10 DAYS ondansetron (ZOFRAN) 4 mg tablet TAKE 1 TABLET BY MOUTH EVERY 6 HOURS NEEDED FOR NAUSEA/VOMITINGFOR 5 DAYS No current facility-administered medications on file prior to visit. CURRENT ALLERGIES: Allergies As of Date: 09/03/2024 Allergen Noted Reaction BLEACH (SODIUM HYPOCHLORITE) 07/09/2024 Unknown CODEINE 08/05/2016 GI Upset PAROXETINE 07/09/2024 Unknown PAXIL [PAROXETINE HCL] 04/24/2006 Rash TYLENOL-CODEINE #3 [ACETAMINOPHEN*05/11/2005 GI Upset Fully Assessed 09/03/2024 Review of systems All relevant review of systems done and negative except for what is mentioned in history of presenting illness OBJECTIVE PHYSICAL EXAM: BP 96/67 (BP Site: Left Arm, BP Position: Sitting) Pulse 89 Resp 18 Wt 67.6 kg (149 lb) LMP12/19/2023 (Approximate) SpO2 98% BMI 25.58 kg/m Examination HEENT PEARLA Lungs Clear, no ronchi or wheezing CVS S1 S2 audible, no S3, S4 murmur or gallop Abdomen Soft, non tender, BS +. No organomegaly THERAPIST PHYS Intact. No focal motor or sensory deficit noted Extremities No Edema. No clubbing and cyanosis Skin Warm and dry. Turgor is adequate Color normal, no icterus, purpura or rash noted Neck Supple. Trachea central and mid line. No supraclavicular lymphadenopathy Peripheral pulses Palpable Mood & Affect Flat DATA: Diagnostic tests reviewed for today's visit reviewed Most recent imaging reviewed Billy Lynn MD Clinical provider network analyst, [facility] Clinical Pan Devulcanizer of Critical Care Medicine, [facility] Signature: Billy Lynn MD Clinical provider network analyst, [facility] Clinical Pan Devulcanizer of Critical Care Medicine, [facility] PATIENT NAME: Deandra Mccray DATE: September 03, 2024 TIME: 1:54 PM CONTACT # [phone] Part of this note may be copied from my previous note, all content has been individually reviewed, updated as necessary, and thoroughly reviewed, and patient assessed with updates/ changes documented/adjusted. [facility] NoteHNO ID: [id number] Author: VALENTÍN ADAN RRT Service: ? Author Type: Registered Resp Therapist Type: Progress Notes Filed: 09/03/2024 13:11 Note Text: PULM FUNCTION: Provider: Billy Lynn MD Spirometry w/BD: 1 DLCO: 1[facility] [id number] History of Present illness Narrative* Valentín Adan RRT - 09/03/2024 1:10 PM EDT PULM FUNCTION: Provider: Billy Lynn MD Spirometry w/BD: 1 DLCO: 1 documented in this encounterC[facility] Hospital Discharge instructions Patient Education 08/16/2024 17:36:48 Chest Wall Pain, Costochondritis Chest Wall Pain: Costochondritis The chest pain that you have had today is caused by costochondritis. This condition is caused by aninflammation of the cartilage joining your ribs to your breastbone. It is not caused by heart or lung problems. Your healthcare team has made sure that the chest pain you feel is not from a life threatening cause of chest pain such as heart attack, collapsed lung, blood clot in the lung, tear in the aorta, or esophageal rupture. The inflammation may have been brought on by a blow to the chest, lifting heavy objects, intense exercise, or an illness that made you cough and sneeze a lot. It often occurs during times of emotional stress. It can be painful, but it is not dangerous. It usually goesaway in 1 to 2 weeks. But it may happen again. Rarely, a more serious condition may cause symptoms similar to costochondritis. That s why it s important to watch for the warning signs listed below. Home care Follow these guidelines when caring for yourself at home: If you feel that emotional stress is a cause of your condition, try to figure out the sources of that stress. It may not be obvious. Learn ways to deal with the stress in your life. This can include regular exercise, muscle relaxation, meditation, or simply taking time out for yourself. You may use acetaminophen, ibuprofen, or naproxen to control pain, unless another pain medicine wasprescribed. If you have liver or kidney disease or ever had a stomach ulcer, talk with your healthcare provider before using these medicines. You can also help ease pain by using a hot, wet compress or heating pad. Use this with or without amedicated skin cream that helps relieves pain. Do stretching exercise as advised by your provider. Take any prescribed medicines as directed. Follow-up care Follow up with your healthcare provider, or as advised, if you do not start to get better in the next 2 days. When to seek medical advice Call your healthcare provider right away if any of these occur: A change in the type of pain. Call if it feels different, becomes more serious, lasts longer, or spreads into your shoulder, arm, neck, jaw, or back. Shortness of breath or pain gets worse when you breathe Weakness, dizziness, or fainting Cough with dark-colored sputum (phlegm) or blood Abdominal pain Dark red or black stools Fever of 100.4 F (38 C) or higher, or as directed by your healthcare provider [phone] [employer]. [address] [place] [address]. All rights reserved. This information is not intended as a substitute for professional medical care. Always follow yourhealthcare professional's instructions. Follow Up Care 08/16/2024 15:47:59 With:RHONDA LEA Address: [address] [place] [phone]- [phone] When:2-4 days [facility] 02-21-2025 Note Discharge Instructions Thank you for allowing [place] to assist you with your healthcare needs. The following is importantdischarge information regarding your hospital visit. Diagnosis from Today's Visit Chest wall pain Musculoskeletal pain What to Do Next Instructions from Your Care Team Continue to use Tylenol and Motrin at home; you may also use Lidocaine patches. Please follow up with primary care. For worsening symptoms, return to the ER. No qualifying data available. Post Acute Orders No qualifying data available. You Need to Schedule the Following Appointments Follow Up with RHONDA LEA When:Within 2-4 days Where:[address] [place] [phone] Allergies Tylenol with Codeine (Moderate) Migraine Bleach rash Paxil vomiting Medications Please ask your primary doctor or pharmacist before taking any other medication not listed, including over the counter drugs, herbal medications, vitamins and or supplements as they may interact withur home medications. What How Much When Instructions Last Dose Unchanged acetaminophen (acetaminophen 500 mg oral tablet) 2 tab(s) by mouth Three (3) times a day as needed for pain or fever Unchanged albuterol (Albuterol (Eqv-Proventil HFA) 90 mcg/ inh inhalation aerosol) 2 puff(s) by inhalation Every 6 hours Unchanged aspirin (aspirin 81 mg oral delayed release tablet) 1 tab(s) by mouth Once a day Unchanged buPROPion (BuPROPion (Eqv-Wellbutrin SR) 150 mg/ 12 hours oral tablet, extended release) Unchanged gabapentin (gabapentin 300 mg oral capsule) 1-3 caps by mouth Daily at bedtime Unchanged ibuprofen (ibuprofen 200 mg oral tablet) 2 tab(s) by mouth Every 6 hours as needed for pain or fever Unchanged naproxen (naproxen 500 mg oral tablet) 1 tab(s) by mouth Two (2) times a day as needed for Pain Unchanged omeprazole (omeprazole 20 mg oral delayed release capsule) 1 cap by mouth Once a day Unchanged rimegepant (Nurtec ODT 75 mg oral tablet, disintegrating) 1 tab(s) by mouth Every 24 hours as needed for as needed for migraine headache not to exceed 75 mg in 24 hours Unchanged topiramate (topiramate 100 mg oral tablet) take 1 tablet by mouth at bedtime Please take this list to your next doctor s visit. Bring all medications you take, including over the counter medications, herbals and other supplements with you to your doctor s visit. Patients and families are reminded to discard old lists and to update any records with all medication providers or retail pharmacies. Education Materials Chest Wall Pain: Costochondritis The chest pain that you have had today is caused by costochondritis. This condition is caused by aninflammation of the cartilage joining your ribs to your breastbone. It is not caused by heart or lung problems. Your healthcare team has made sure that the chest pain you feel is not from a life threatening cause of chest pain such as heart attack, collapsed lung, blood clot in the lung, tear in the aorta, or esophageal rupture. The inflammation may have been brought on by a blow to the chest, lifting heavy objects, intense exercise, or an illness that made you cough and sneeze a lot. It often occurs during times of emotional stress. It can be painful, but it is not dangerous. It usually goesaway in 1 to 2 weeks. But it may happen again. Rarely, a more serious condition may cause symptoms similar to costochondritis. That s why it s important to watch for the warning signs listed below. Home care Follow these guidelines when caring for yourself at home: If you feel that emotional stress is a cause of your condition, try to figure out the sources of that stress. It may not be obvious. Learn ways to deal with the stress in your life. This can include regular exercise, muscle relaxation, meditation, or simply taking time out for yourself. You may use acetaminophen, ibuprofen, or naproxen to control pain, unless another pain medicine wasprescribed. If you have liver or kidney disease or ever had a stomach ulcer, talk with your healthcare provider before using these medicines. You can also help ease pain by using a hot, wet compress or heating pad. Use this with or without amedicated skin cream that helps relieves pain. Do stretching exercise as advised by your provider. Take any prescribed medicines as directed. Follow-up care Follow up with your healthcare provider, or as advised, if you do not start to get better in the next 2 days. When to seek medical advice Call your healthcare provider right away if any of these occur: A change in the type of pain. Call if it feels different, becomes more serious, lasts longer, or spreads into your shoulder, arm, neck, jaw, or back. Shortness of breath or pain gets worse when you breathe Weakness, dizziness, or fainting Cough with dark-colored sputum (phlegm) or blood Abdominal pain Dark red or black stools Fever of 100.4 F (38 C) or higher, or as directed by your healthcare provider [phone] [employer]. [address] [place] [address], [place] [address]. All rights reserved. This information is not intended as a substitute for professional medical care. Always follow yourhealthcare professional's instructions. Additional Information VACCINATE! IT SAVES LIVES! Members of the community who have not yet received the COVID-19 vaccine and would like to receive it can visit one of [facility] vaccine clinics. There are many vaccine clinic locations within the [facility]. For locations and available times, please visit www.gettheshot.coronavirus.[place].gov/. It is important to note that some COVID mobile vaccine clinics are held outdoors and may be canceled in rainy or stormy conditions. To learn more about pediatric vaccinations (ages 5-11), we invite you to visit the [facility] webpage. https://www.[facility].org/pages/1589-Viguy-Vflbwcgejgb-Fhnavdqucf-Wjpcd-Pjh stions.htmlTo learn more about the COVID-19 vaccine, we invite you to visit the CDC website for a list of frequently asked questions. https://www.cdc.gov/coronavirus/2019-ncov/vaccines/faq.html [place] [facility] Patient Portal Access Instructions: Stay connected with your healthcare team and access your personal medical information anytime with the [facility] Patient Portal. If you would like a full copy of your medical records please contact the [facility] Medical Records Department Monday through Monday between 8a.m. and 4:30p.m. Please follow the directions below to access the portal: 1.Access the email account you provided upon registration to the hospital.2.Look for an invitation email from [facility].3.Open the email and access the invitation link: Accept Invitation to [facility]4.Fill in the required rose to create your account. Sign into [email or web address] with your username and password that you created in the above steps to stay up to date. You can then view a summary of results, a summary of your visits, and the ability to download your summaries to your computer or send the information securely to a physician. Remember that your healthcare information is confidential, so carefully consider who you will allow to register on the [facility] Patient Portal for access to your information. You can also access the [facility] Patient Portal on the The [employer] easily beat. Simply click on Health Records under [employer] and then click on the [facility] logo. HOW TO SAFELY DISPOSE OF PRESCRIPTION MEDICATIONS Please use one of the following methods to safely dispose of your unused medications. 1.Use a drug disposal kit: the drug disposal pouch allows you to safely discard your old and unuseddrugs. Ask your nurse to give you one when you are discharged.2.Visit a local take-back location: Many local pharmacies and police departments have programs that collect old and unwanted prescriptiondrugs. Call your local pharmacy or go to http://mParticle.Texxi/7L7Xw7r to find one close to you.3.Make use of household items: Use cat litter or old coffee grounds to dispose medications if other options arenot available. Mix your drugs with these household products, seal them in an airtight container andthrow it into the garbage. Call [facility]: [phone] to be sure your drugs can be disposed of in this way. Some medicines may require a different approach.4.Never flush your medications down the toilet. IF YOU HAVE BEEN PRESCRIBED AN OPIOIDS FOR PAIN If you have been prescribed an opioid (such as hydrocodone, oxycodone or morphine), it is critical to understand the possible side effects and risks of opioid pain medications. Even when taken as directed, opioids can have several side effects including: Tolerance, meaning you might need to take more of a medication for the same pain relief. Nausea, vomiting and/or constipation. Sleepiness, dizziness, dry mouth, confusion, depression or itching. Physical dependence, meaning you have withdrawal symptoms when a medication is stopped ? this can develop within a few days. KNOW YOUR RESPONSIBILITIES It is important to know exactly how much and how often to take the opioid pain medications you are prescribed. Never take opioids in higher amounts or more often than prescribed. Do not combine opioids with alcohol or other drugs that cause drowsiness, such as benzodiazepines, also known as benzos,including diazepam and alprazolam, muscle relaxants or sleep aids. Never sell or share prescriptionopioids. This is illegal. Store opioids in a secure place and out of reach of others (including children, family, friends and visitors). The last page(s) of this document has been signed and retained as a CHART COPY Signatures Patient Education Materials Chest Wall Pain, Costochondritis Medication Leaflets My discharge plan and instructions have been reviewed and explained to me and IMAHENDRA AMBERLY M understand my current condition and have read and understand these discharge instructions. I have received a written copy of the plan/instructions. If I have questions, I am aware that I should contactmy doctor. Patient/Kiln Drawer Signature: Date/Time: Relationship to Patient: Witness Name/Signature: Date/Time: [facility]02-21-2025 Note* Exam Date Time Procedure Performing Provider Status 08/16/24 4:32 PM XR Chest 1 View HARIS CRUZ; Auth (Verified) [id number] ORIGINAL EXAMINATION: ONE XRAY VIEW OF THE CHEST08/16/2024 4:32 pm COMPARISON: 01/31/2024 HISTORY: ORDERING SYSTEM PROVIDED HISTORY: Reason for Exam: chest pain FINDINGS: The cardiomediastinal contours are normal. Vascular structures appear within normal limits. There is no consolidation. No pleural fluid or pneumothorax. No aggressive osseous lesions identified. IMPRESSION: No acute radiographic findings. Interpreted by: Haris Cruz MD Preliminary Report By: Haris Cruz MD Electronically signed By Haris Cruz MD Dictated Date: 08/16/2024 4:35:25 PM Prelim Date: 08/16/2024 4:35:51 PM Sign Date: 08/16/2024 4:35:51 PM Ordering Provider: CLARISA SIDDIQUI [facility]02-21-2025 Note* Exam Date Time Procedure Performing Provider Status 08/16/24 4:00 PM EKG [ED AO] - CV MD KALEB, JERRELL HERNANDEZ; Auth (Verified) ECG Final Report Sinus rhythm Electronic Signature: MD KALEB, JERRELL HERNANDEZ 08/16/2024 17:57:51 [facility]02-19-2025 NoteHNO ID: [id number] Author: JM CHILDRESS MD Service: ? Author Type: Physician Type: Progress Notes Filed: 08/14/2024 16:35 Note Text: CHIEF COMPLAINT Patient presents with: Shortness of Breath HISTORY OF PRESENT ILLNESS Deandra Mccray is a 39 year old female who presents here today for shortness of breath. I last saw this patient on 12/19/2023. Respiratory - Endorses shortness of breath - Feels like she is always trying to catch her breath - Started after she had Covid - Spirometry in 09/2023 normal Weight - Struggles to lose weight - Was able to lose some weight last year, has been gaining since then - Exercises regularly, has a strict diet, primarily eats chicken and rice - Last 6 Encounter Wt Readings: Date: Wt: 08/14/2024 68 kg (149 lb 14.6 oz) 04/05/2024 64.2 kg (141 lb 8.6 oz) 04/01/2024 65.7 kg (144 lb 12.8 oz) 03/25/2024 64.9 kg (143 lb) 03/19/2024 61.7 kg (136 lb) 01/04/2024 61.2 kg (134 lb 14.7 oz) Reproductive Health - Hx of hysterectomy and right oophorectomy - Had a ovarian cyst at/larger than 6 cm, right side, that burst - Went in for surgery to have it removed, states that surgeon punctured her uterus - Hemorrhaged, had to be brought back in to surgery to have hysterectomy Tobacco Use - Quit smoking 7 months ago Health Maintenance Due for Influenza Vaccine (1) Due for Anxiety Screening Due for DTaP, Tdap, Td Vaccine (1- Tdap) Due for Hep B Vaccine (1 of 3-3 dose series) Due for Mammogram Screening Due for Covid-19 Vaccine (- 2023- season) Labs reviewed. Past medical history, appointments, medications, allergies reviewed. REVIEW OF SYSTEMS General: Feels well, +weight gain, no fevers or chills. HEENT: No sinus congestion, earache, sore throat. Cardiac: No chest pain, palpitations Resp: +Shortness of breath No cough or wheeze GI: No reflux symptoms, food intolerance, bowel changes. : No urinary frequency, dysuria. MS: No pain or joint complaints. 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 General: Alert, well developed, well nourished, no distress, pleasant and cooperative. Heart: Regular rate and rhythm. Normal S1 and S2. No murmurs, rubs, or gallops. Lungs: Clear to auscultation bilaterally. No respiratory distress. No wheezes, rales, or rhonchi. Abdomen: Soft, non-tender, no distention. Extremities: Feet/ankles without edema, posterior tibial pulses full and symmetrical. Data Reviewed Latest Ref [facility] 06/14/2023 WBC 3.70 - 11.00 k/uL 7.26 RBC 3.90 - 5.20 m/uL 4.18 Hemoglobin 11.5 - 15.5 g/dL 12.9 Hematocrit 36.0 - 46.0 % 38.7 MCV 80.0 - 100.0 fL 92.6 MCH 26.0 - 34.0 pg 30.9 MCHC 30.5 - 36.0 g/dL 33.3 RDW-CV 11.5 - 15.0 % 12.1 Platelet Count 150 - 400 k/uL 190 MPV 9.0 - 12.7 fL 11.7 Neut% % 51.1 Abs Neut (ANC) 1.45 - 7.50 k/uL 3.71 Lymph% % 36.1 Abs Lymph 1.00 - 4.00 k/uL 2.62 Sevier% % 6.2 Abs Sevier <0.87 k/uL 0.45 Eosin% % 5.2 Abs Eosin <0.46 k/uL 0.38 Baso% % 1.1 Abs Baso <0.11 k/uL 0.08 Immature Gran % % 0.3 IMMATURE GRANS (ABS) <0.10 k/uL <0.03 NRBC /100 WBC 0.0 Absolute nRBC <0.01 k/uL <0.01 DTYPE Auto Protein, Total 6.3 - 8.0 g/dL 6.2 (L) Albumin 3.9 - 4.9 g/dL 4.0 Calcium 8.5 - 10.2 mg/dL 8.8 Bilirubin, Total 0.2 - 1.3 mg/dL <0.2 (L) Alkaline Phosphatase 34 - 123 U/L 65 AST 13 - 35 U/L 11 (L) ALT 7 - 38 U/L 12 Glucose 74 - 99 mg/dL 99 BUN 7 - 21 mg/dL 10 Creatinine 0.58 - 0.96 mg/dL 0.79 Sodium 136 - 144 mmol/L 140 Potassium 3.7 - 5.1 mmol/L 3.6 (L) Chloride 97 - 105 mmol/L 112 (H) CO2 22 - 30 mmol/L 21 (L) Anion Gap 9 - 18 mmol/L 7 (L) eGFR >=60 mL/min/1.73m? 98 TSH 0.270 - 4.200 mIU/L 0.927 Legend: (L) Low (H) High Assessment/Plan (R06.02) SOB (shortness of breath) (primary encounter diagnosis) (Z86.16) History of 2019 novel coronavirus disease (COVID-19) Comment: Ongoing shortness of breath. Spirometry in 2023 normal. Will obtain chest xray and check labs Plan: XR CHEST 2V FRONTAL/LAT, COMPLETE BLOOD COUNT, COMPREHENSIVE METABOLIC PANEL (E89.40) Surgical menopause Comment: Underwent hysterectomy and right oophorectomy in November 2023. May be contributing to weight. Will check labs Plan: FOLLICLE STIMULATING HORMONE, LUTEINIZING HORMONE Requested Prescriptions (more content not included)...[facility] 08-14-2024 History of Present illness Narrative* Jm Childress MD - 08/14/2024 11:18 AM EST CHIEF COMPLAINT Patient presents with: Shortness of Breath HISTORY OF PRESENT ILLNESS Deandra Mccray is a 39 year old female who presents here today for shortness of breath. I last saw this patient on 12/19/2023. Respiratory - Endorses shortness of breath - Feels like she is always trying to catch her breath - Started after she had Covid - Spirometry in 09/2023 normal Weight - Struggles to lose weight - Was able to lose some weight last year, has been gaining since then - Exercises regularly, has a strict diet, primarily eats chicken and rice - Last 6 Encounter Wt Readings: Date: Wt: 08/14/2024 68 kg (149 lb 14.6 oz) 04/05/2024 64.2 kg (141 lb 8.6 oz) 04/01/2024 65.7 kg (144 lb 12.8 oz) 03/25/2024 64.9 kg (143 lb) 03/19/2024 61.7 kg (136 lb) 01/04/2024 61.2 kg (134 lb 14.7 oz) Reproductive Health - Hx of hysterectomy and right oophorectomy - Had a ovarian cyst at/larger than 6 cm, right side, that burst - Went in for surgery to have it removed, states that surgeon punctured her uterus - Hemorrhaged, had to be brought back in to surgery to have hysterectomy Tobacco Use - Quit smoking 7 months ago Health Maintenance Due for Influenza Vaccine (1) Due for Anxiety Screening Due for DTaP, Tdap, Td Vaccine (1- Tdap) Due for Hep B Vaccine (1 of 3-3 dose series) Due for Mammogram Screening Due for Covid-19 Vaccine (- 2023- season) Labs reviewed. Past medical history, appointments, medications, allergies reviewed. REVIEW OF SYSTEMS General: Feels well, +weight gain, no fevers or chills. HEENT: No sinus congestion, earache, sore throat. Cardiac: No chest pain, palpitations Resp: +Shortness of breath No cough or wheeze GI: No reflux symptoms, food intolerance, bowel changes. : No urinary frequency, dysuria. MS: No pain or joint complaints. 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 Leg pain, bilateral 04/26/2021 PFO (patent foramen ovale) 09/26/2011 TIA (transient ischemic attack) 09/28/2012 Tobacco use disorder PHYSICAL EXAMINATION BP 96/61 Pulse 82 Ht 162.6 cm (5' 4) Wt 68 kg (149 lb 14.6 oz) LMP 12/19/2023 (Approximate) SpO2 99% BMI 25.73 kg/m General: Alert, well developed, well nourished, no distress, pleasant and cooperative. Heart: Regular rate and rhythm. Normal S1 and S2. No murmurs, rubs, or gallops. Lungs: Clear to auscultation bilaterally. No respiratory distress. No wheezes, rales, or rhonchi. Abdomen: Soft, non-tender, no distention. Extremities: Feet/ankles without edema, posterior tibial pulses full and symmetrical. Data Reviewed Latest Ref [facility] 06/14/2023 WBC 3.70 - 11.00 k/uL 7.26 RBC 3.90 - 5.20 m/uL 4.18 Hemoglobin 11.5 - 15.5 g/dL 12.9 Hematocrit 36.0 - 46.0 % 38.7 MCV 80.0 - 100.0 fL 92.6 MCH 26.0 - 34.0 pg 30.9 MCHC 30.5 - 36.0 g/dL 33.3 RDW-CV 11.5 - 15.0 % 12.1 Platelet Count 150 - 400 k/uL 190 MPV 9.0 - 12.7 fL 11.7 Neut% % 51.1 Abs Neut (ANC) 1.45 - 7.50 k/uL 3.71 Lymph% % 36.1 Abs Lymph 1.00 - 4.00 k/uL 2.62 Sevier% % 6.2 Abs Sevier <0.87 k/uL 0.45 Eosin% % 5.2 Abs Eosin <0.46 k/uL 0.38 Baso% % 1.1 Abs Baso <0.11 k/uL 0.08 Immature Gran % % 0.3 IMMATURE GRANS (ABS) <0.10 k/uL <0.03 NRBC /100 WBC 0.0 Absolute nRBC <0.01 k/uL <0.01 DTYPE Auto Protein, Total 6.3 - 8.0 g/dL 6.2 (L) Albumin 3.9 - 4.9 g/dL 4.0 Calcium 8.5 - 10.2 mg/dL 8.8 Bilirubin, Total 0.2 - 1.3 mg/dL <0.2 (L) Alkaline Phosphatase 34 - 123 U/L 65 AST 13 - 35 U/L 11 (L) ALT 7 - 38 U/L 12 Glucose 74 - 99 mg/dL 99 BUN 7 - 21 mg/dL 10 Creatinine 0.58 - 0.96 mg/dL 0.79 Sodium 136 - 144 mmol/L 140 Potassium 3.7 - 5.1 mmol/L 3.6 (L) Chloride 97 - 105 mmol/L 112 (H) CO2 22 - 30 mmol/L 21 (L) Anion Gap 9 - 18 mmol/L 7 (L) eGFR >=60 mL/min/1.73m 98 TSH 0.270 - 4.200 mIU/L 0.927 Legend: (L) Low (H) High Assessment/Plan (R06.02) SOB (shortness of breath) (primary encounter diagnosis) (Z86.16) History of 2019 novel coronavirus disease (COVID-19) Comment: Ongoing shortness of breath. Spirometry in 2023 normal. Will obtain chest xray and check labs Plan: XR CHEST 2V FRONTAL/LAT, COMPLETE BLOOD COUNT, COMPREHENSIVE METABOLIC PANEL (E89.40) Surgical menopause Comment: Underwent hysterectomy and right oophorectomy in November 2023. May be contributing to weight.Will check labs Plan: FOLLICLE STIMULATING HORMONE, LUTEINIZING HORMONE Requested Prescriptions Signed Prescriptions Disp Refills buPROPion SR (WELLBUTRIN SR) 150 mg 12 hr tablet 60 tablet 2 Sig: Take 1 tablet by mouth two times a day. RTO: 6 months Scribe Attestation: By signing my name below, I, Saira Rocha, attest that this documentation has been prepared under the direction and in the presence of Jasbir Childress M.D. Electronically Signed: Eloisa Roy. August 14, 2024 11:18 AM Provider Attestation: IJm MD, personally performed the services described in this documentation. All medical record entries made by the scribe were at my direction and in my telephonic presence. I have reviewed the chart and discharge instructions (if applicable), and agree that the record reflects my personal performance and is accurate and complete. Electronically Signed: Jm Childress MD August 14, 2024 4:30 PM [facility] Telephone encounter Note * Telephone Encounter - Dyan Almaraz - 08/11/2024 2:03 PM EST Patient is scheduled in [place] with Karen Saul 08-15-24 [facility] Work Phone: [phone] 661-721002-16-2025 Miscellaneous Notes* Telephone Encounter - Dyan Almaraz - 08/11/2024 2:03 PM EST Patient is scheduled in [place] with Karen Saul 08-15-24 * Telephone Encounter - Rashmi Azul LPN - 08/06/2024 11:27 AM EST Images from the original note were not included. Jovon Wilder Jr., MD P Rebecca Wilder Nurse 8-10 weeks follow up with [facility] Thank you. documented in [facility] Telephone encounter Note * Telephone Encounter - Rashmi Azul LPN - 08/06/2024 11:27 AM EST Images from the original note were not included. Jovon Wilder Jr., MD P Rebecca Neur Meño Nurse 8-10 weeks follow up with [facility] Thank you. [facility]02-11[facility]25 NoteHNO ID: [id number] Author: JOVON WILDER JR, MD Service: ? Author Type: Physician Type: Progress Notes Filed: 08/17/2024 21:38 Note Text: ESTABLISHED PATIENT VISIT (Virtual Visit with Video) For this virtual visit, the patient has been identified by name and (MRN and photo identification as well if available). Those taking part in visit: Patient and physician via Baboom. Consent for this visit received from patient. I have communicated my name and active licensure. The patient's identity and physical location ([place]) were verified at the time of this visit. The pateint has been informed of the risks and benefits of -- and alternatives to -- treatment through a remote evaluation and consents to proceed with the evaluation remotely. HISTORY OF PRESENT ILLNESS: Deandra Mccray is a 39 year old female, with a PMH significant for and per last office visit note with me on 04/01/24: 1. Cervicalgia - ICD9: 723.1, ICD10: M54.2 (primary diagnosis) 2. Radiculopathy, cervical region - ICD9: 723.4, ICD10: M54.12 3. Intractable headache, unspecified chronicity pattern, unspecified headache type - ICD9: 784.0, ICD10: R51.9 4. Other chest pain - ICD9: 786.59, ICD10: R07.89 5. Tingling - ICD9: 782.0, ICD10: R20.2 Patient with multiple complaints above of which etiology has not been determined despite neurologic, cardiac and pulmonary workups. That said, patient today is endorsing pattern of symptoms to suggest possible cervical spine origin. No prior imaging of such. In addition, noted hyperreflexia in both upper and lower extremities and decreased LUE swing when ambulating due to radicular type pain in the proximal LUE. DDx would include possible C spine radic or stenosis with provoking factors of prior C spine traumas as well as concern for demyelinating disease or history of myelitis with symptoms worse in hot vs cold. D/w pt and will proceed with MRI C spine. Note there is no mention of demyelinating lesions on prior MRI brain (agree on review of images). For discomfort will place on trial of gabapentin 300mg at 5PM and then again at 10PM (dinner and bedtime respectively). SE and ADRs d/w pt. Note that above concerns would not explain sob, and pt should follow up with cardiology and pulmonary (already scheduled). Also in ddx would be anxiety/panic, but would be dx of exclusion. 6. Chronic insomnia - ICD9: 780.52, ICD10: F51.04 7. 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 Does not endorse sleep onset insomnia. No RLS symptoms. No leg kicking and for that matter no PLMs on PSG. PSG did not show evidence of a sleep related breathing disorder. Suspect awakenings due to other conditions above, as well as chronic shift work with patient working the morning hours. Now waking at same time daily, but concern for inadequate melatonin release during bedtime hours resulting in awakenings. Will start on melatonin 3mg at about 8-9PM for purposes of consolidating melatonin release during the night time hours. Again SE and ADRs d/w pt. Also saw Rustam LAUREN of neurology on 04/05/24: 1. Intractable 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 - ICD9: 346.71, ICD10: G43.719 (primary diagnosis) Patient notes worsening headaches over the last 2 months, notes about 10+ headache days in a month consistent with her previous headaches but notes increased frequency. Tried the Nurtec but notes is not a very good abortive. Is compliant with her Topamax 100 mg. Discussed possibly increasing this but she is reporting some significant daytime fatigue as well. Was put on gabapentin by Dr. Wilder a few days ago but she read the side effects and does not want to try this medication. Discussed other medications, but she would like to complete testing before adding any additional medicines. Encouraged her to reach out should her headaches continue to worsen. 2. Altered awareness, transient - ICD9: 780.02, ICD10: R40.4 Patient also reporting episodes of altered awareness where she taps her right hand either against her head or taps her fingers together lasting for minutes at a time. Notes that her brought this to her attention in the last few months, unsure how long it has been going on or how often happens. No loss of consciousness with it but notes significant fatigue afterwards. However, does not remember the episodes at all. At this time, concern for possible seizure activity and will order EEG to rule out any epileptiform changes. 3. Pituitary tumor - ICD9: 239.7, ICD10: D49.7 Following with brain tumor. 4. Dizziness - ICD9: 780.4, ICD10: R42 5. Positional lightheadedness - ICD9: 780.4, ICD10: R42 6. Palpitations - ICD9: 785.1, ICD10: R00.2 Notes overall improvement in her dizziness and weakness ever since the weather got colder. [place] that the summer heat exacerbated many of the symptoms. Does have a tilt ta (more content not included)...[facility] 08-06-2024 History of Present illness Narrative* Jovon Wilder Jr., MD - 08/06/2024 10:35 AM EST ESTABLISHED PATIENT VISIT (Virtual Visit with Video) For this virtual visit, the patient has been identified by name and (MRN and photo identification as well if available). Those taking part in visit: Patient and physician via Baboom. Consent for this visit received from patient. I have communicated my name and active licensure. The patient's identity and physical location ([place]) were verified at the time of this visit. The pateint has been informed of the risks and benefits of -- and alternatives to -- treatment through a remote evaluation and consents to proceed with the e valuation remotely. HISTORY OF PRESENT ILLNESS: Deandra Mccray is a 39 year old female, with a PMH significant for and per last office visit note with me on 04/01/24: 1. Cervicalgia - ICD9: 723.1, ICD10: M54.2 (primary diagnosis) 2. Radiculopathy, cervical region - ICD9: 723.4, ICD10: M54.12 3. Intractable headache, unspecified chronicity pattern, unspecified headache type - ICD9: 784.0, ICD10: R51.9 4. Other chest pain - ICD9: 786.59, ICD10: R07.89 5. Tingling - ICD9: 782.0, ICD10: R20.2 Patient with multiple complaints above of which etiology has not been determined despite neurologic, cardiac and pulmonary workups. That said, patient today is endorsing pattern of symptoms to suggest possible cervical spine origin. No prior imaging of such. In addition, noted hyperreflexia in bothupper and lower extremities and decreased LUE swing when ambulating due to radicular type pain in the proximal LUE. DDx would include possible C spine radic or stenosis with provoking factors of prior C spine traumas as well as concern for demyelinating disease or history of myelitis with symptoms worse in hot vs cold. D/w pt and will proceed with MRI C spine. Note there is no mention of demyelinating lesions on prior MRI brain (agree on review of images). For discomfort will place on trial of gabapentin 300mg at 5PM and then again at 10PM (dinner and bedtime respectively). SE and ADRs d/w pt. Note that above concerns would not explain sob, and pt should follow up with cardiology and pulmonary (already scheduled). Also in ddx would be anxiety/panic, but would be dx of exclusion. 6. Chronic insomnia - ICD9: 780.52, ICD10: F51.04 7. 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 Does not endorse sleep onset insomnia. No RLS symptoms. No leg kicking and for that matter no PLMs on PSG. PSG did not show evidence of a sleep related breathing disorder. Suspect awakenings due to other conditions above, as well as chronic shift work with patient working the morning hours. Now waking at same time daily, but concern for inadequate melatonin release during bedtime hours resulting in awakenings. Will start on melatonin 3mg at about 8-9PM for purposes of consolidating melatonin release during the night time hours. Again SE and ADRs d/w pt. Also saw Rustam LAUREN of neurology on 04/05/24: 1. Intractable 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 - ICD9: 346.71, ICD10: G43.719 (primary diagnosis) Patient notes worsening headaches over the last 2 months, notes about 10+ headache days in a month consistent with her previous headaches but notes increased frequency. Tried the Nurtec but notes is not a very good abortive. Is compliant with her Topamax 100 mg. Discussed possibly increasing this but she is reporting some significant daytime fatigue as well. Was put on gabapentin by Dr. Wilder a few days ago but she read the side effects and does not want to try this medication. Discussed other medications, but she would like to complete testing before adding any additional medicines. Encouraged her to reach out should her headaches continue to worsen. 2. Altered awareness, transient - ICD9: 780.02, ICD10: R40.4 Patient also reporting episodes of altered awareness where she taps her right hand either against her head or taps her fingers together lasting for minutes at a time. Notes that her brought this to her attention in the last few months, unsure how long it has been going on or how often happens. No loss of consciousness with it but notes significant fatigue afterwards. However, does not remember the episodes at all. At this time, concern for possible seizure activity and will order EEG torule out any epileptiform changes. 3. Pituitary tumor - ICD9: 239.7, ICD10: D49.7 Following with brain tumor. 4. Dizziness - ICD9: 780.4, ICD10: R42 5. Positional lightheadedness - ICD9: 780.4, ICD10: R42 6. Palpitations - ICD9: 785.1, ICD10: R00.2 Notes overall improvement in her dizziness and weakness ever since the weather got colder. [place] that the summer heat exacerbated many of the symptoms. Does have a tilt table scheduled for next year. Drinks about 2 bottles of water a day, encouraged increased fluid intake, exercise and compression if tolerated. Follow with cardiology for palpitations and shortness of breath. Scheduled for an echo and a stress test coming up. 7. Left hand weakness - ICD9: 728.87, ICD10: R29.898 Still reporting some left hand weakness, did not have the EMG completed yet. Does have scheduled MRI of the cervical spine for next month. No recent falls since last appointment. 8. 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 - ICD9: 346.31, ICD10: G43.419 9. Concussion with loss of consciousness, initial encounter - ICD9: 850.5, ICD10: S06.0X9A See headache management above. Patient states saw publication specialist who recommended physical therapy. States headaches only occur during the breathing issues (noted last visit) with L chest pain. Cardiology told her everything was fine per patient. States new symptom has come along with numbness in the LLE into the foot. States all these symptoms subsided when winter hit, but states symptoms now back. Tilt table at [facility] reportedly unremarkable. States was drinking coffee heavy without symptoms. but now off the coffee since symptoms returned. Symptoms daily. Occurs typically in the evening. States stress can set off symptoms.When asked specifically the type of stress, pt states things like fighting at home, panic, horror movies. Asked specifically and pt states feels safe at home. States sleep was good for the longest time, but now waking at 3AM-330AM and then wide awake. Statesthe less sleep she gets the bigger the trigger for the symptoms above. Currently going to bed between 830-930PM and falling asleep in about 30 minutes. Waking with heart racing. Difficulties getting ready and functioning at work the next day. No other awakenings during the night. States having hot flashes. Does feel gabapentin helped with pain but not helping with hot flashes - taking 300mg at 8PM. States melatonin did not help at all. No side effects on gabapentin. When asked about prior counselors states she has had them, but no help. States everything began since having COVID. Was on Wellbutrin in the past but states only used for smoking cessation. PHQ 9 Data More data exists 08/04/2024 06/02/2020 03/15/2018 PHQ-9 All Questions Little interest or pleasure in doing things: 2 1 0 Feeling down, depressed, or hopeless: 2 2 0 Trouble falling or staying asleep, or sleeping too much 2 3 - Feeling tired or having little energy 2 3 - Poor appetite or overeating 2 3 - Feeling bad about yourself - or that you are a failure or have let yourself or your family down 2 0- Trouble concentrating on things, such as reading the newspaper or watching television 2 0 - Moving or speaking so slowly that other people could have noticed. Or the opposite - being so fidgety or restless that you have been moving around a lot more than usual 2 0 - Thoughts that you would be better off , or of hurting yourself in some way 2 0 - PHQ-9 Score 18 12 - KEL 7 Data important suggestion No data to display PROMIS-10 More data may exist PROMIS Global Health - (T-Scores - the mean of general population = 50. Five points is a clinicallymeaningful difference.) Physical T-Score Mental T-Score 08/04/2024 32.4 25.1 06/17/2020 44.9 38.8 03/17/2020 47.7 36.3 [place] Sleepiness Scale Scores 08/04/2024 [place] Sleepiness Scale Score 16 Abnormal REVIEW OF SYSTEMS GENERAL:No weight loss, malaise or fevers. HEENT:Negative for frequent or significant headaches, No changes in hearing or vision, no nose bleeds or other nasal problems NECK:See HPI. RESPIRATORY: See HPI. CARDIOVASCULAR: See HPI. GASTROINTESTINAL: Negative for abdominal discomfort, blood in stools or black stools or change in bowel habits GENITOURINARY: No history of dysuria, frequency or incontinence MUSCULOSKELETAL: See HPI. NEUROLOGIC:Negative for focal numbness or weakness, headaches and dizziness or syncope, vision changes, speech/languag changes - EXCEPT that as per HPI above. SKIN:Negative for lesions, rash, and itching. PSYCHIATRIC: See HPI. LAB/IMAGING: Those performed since patient's last visit have been reviewed. WBC (k/uL) Date Value 06/14/2023 7.26 RBC (m/uL) Date Value 06/14/2023 4.18 Hemoglobin (g/dL) Date Value 06/14/2023 12.9 Hematocrit (%) Date Value 06/14/2023 38.7 MCV (fL) Date Value 06/14/2023 92.6 MCH (pg) Date Value 06/14/2023 30.9 MCHC (g/dL) Date Value 06/14/2023 33.3 RDW-CV (%) Date Value 06/14/2023 12.1 Platelet Count (k/uL) Date Value 06/14/2023 190 MPV (fL) Date Value 06/14/2023 11.7 Glucose (mg/dL) Date Value 06/14/2023 99 BUN (mg/dL) Date Value 06/14/2023 10 Creatinine (mg/dL) Date Value 06/14/2023 0.79 Sodium (mmol/L) Date Value 06/14/2023 140 Potassium (mmol/L) Date Value 06/14/2023 3.6 (L) Chloride (mmol/L) Date Value 06/14/2023 112 (H) CO2 (mmol/L) Date Value 06/14/2023 21 (L) Protein, Total (g/dL) Date Value 06/14/2023 6.2 (L) Albumin (g/dL) Date Value 06/14/2023 4.0 Calcium, Total (mg/dL) Date Value 06/14/2023 8.8 Alkaline Phosphatase (U/L) Date Value 06/14/2023 65 Bilirubin, Total (mg/dL) Date Value 06/14/2023 <0.2 (L) AST (U/L) Date Value 06/14/2023 11 (L) ALT (U/L) Date Value 06/14/2023 12 BRIE (no units) Date Value 08/30/2021 Negative Rheumatoid Factor (IU/mL) Date Value 08/30/2021 <10 Hep C Antibody IA (no units) Date Value 04/16/2020 Negative MEDICATIONS: rimegepant (NURTEC ODT) 75 mg disintegrating tablet Take 1 tablet by mouth once daily as needed. gabapentin (NEURONTIN) 300 mg capsule Take 1 capsule at 5-6PM, and 1 capsule at about 9-10PM. (Patient not taking: Reported on 04/05/2024) melatonin 3 mg tablet Take 1 tablet at 9-10PM nightly. omeprazole (PRILOSEC) 20 mg capsule Take 1 capsule by mouth once daily. topiramate (TOPAMAX) 100 mg tablet take 1 tablet by mouth everyday at bedtime albuterol HFA (PROVENTIL HFA, VENTOLIN HFA) 90 mcg/actuation inhaler INHALE 2 PUFFS BY MOUTH EVERY 6 HOURS NEEDED DIRECTED NAPROXEN ORAL Take by mouth as needed. 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 Leg pain, bilateral 04/26/2021 PFO (patent foramen ovale) 09/26/2011 TIA (transient ischemic attack) 09/28/2012 Tobacco use disorder FAMILY HISTORY Problem Relation Age of Onset other (OVARIAN REMNANT SYNDROME) Mother age 52 pulmonary other (SLE) Mother Hypertension Mother Hyperlipidemia Mother Stroke Mother Heart Failure Mother COPD Mother Coronary Artery Disease Father age 58 MVA (motorcycle) Hypertension Father Hyperlipidemia Father Diabetes Father Developmental problem Sister MENTAL RETARDATION/SEXUAL ADDICTION Heart Maternal Grandmother ENLARGED HEART Cancer Maternal Grandfather LUNG Heart Maternal Grandfather [place] Diabetes Maternal Grandfather Heart Paternal Grandfather [place] Stroke Paternal Grandfather Diabetes Paternal Grandfather Heart Other MGGM ENLARGED HEART Aneurysm No Family History SOCIAL HISTORY Social History Tobacco Use Smoking status: Former Current packs/day: 1.00 Average packs/day: 1 pack/day for 24.0 years (24.0 ttl pk-yrs) Types: Cigarettes Smokeless tobacco: Never Tobacco comments: 03/10- has cut down to 4 cigs/day Vaping Use Vaping status: Never Used Substance Use Topics Alcohol use: No Drug use: No Comment: Never PHYSICAL EXAMINATION LMP 12/19/2023 (Approximate) GENERAL EXAM: General appearance: NAD, pleasant but also anxious. HEENT: NC/AT, NECK: ROM nml. Lungs: No audible cough, wheeze, sob. NEUROLOGICAL EXAM: General: Awake, alert, oriented x3 (person,place,time), speech fluent, no dysarthria; comprehension, naming, repetition intact. CN: EOMI, face symmetric, hearing is intact to finger rub bilaterally, palate and tongue movements are intact and symmetric. SCM and trapezius strength symmetric. Motor: ALEXANDER equal and symmetric. Assessment and Plan: ASSESSMENT/PLAN: 1. Insomnia, unspecified type - ICD9: 780.52, ICD10: G47.00 (primary diagnosis) 2. 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 Obvious stressors in life as above. Unclear cause of awakening at present. While shift work thought to possibly be contributing, no longer appears factor. Question if discomfort or any possible movements during te night were initially alleviated with use of gabapentin. Thus, will try to increase the dose to 600mg QHS and possibly 900mg QHS if needed and tolerated. Note that gabapentin may have also helped with anxiety. Pt reported no side effects on lower dose. Will also refer for behavioral sleep med. 3. Depression, unspecified depression type - ICD9: 311, ICD10: F32.A Encouraged follow up with PCP and possible psychiatry referral. Pt declined. [facility] referral as above.Life stressors as above. Denies SI/HI. 4. Cervicalgia - ICD9: 723.1, ICD10: M54.2 5. Radiculopathy, cervical region - ICD9: 723.4, ICD10: M54.12 6. Intractable headache, unspecified chronicity pattern, unspecified headache type - ICD9: 784.0, ICD10: R51.9 Agree with spine referral and other med recs per neurology. Symptoms appeared to improve although noting LLE numbness as above - intermittent. Discussed further imaging with pt but pt would like to hold for now and see if gabapentin helps. Agree with PT as per spine recs. 8. Palpitations - ICD9: 785.1, ICD10: R00.2 Cardiology evaluation was completed. Appears workup unremarkable (also per pt). Tilt unremarkable. No additional recs at this time. Jovon Wilder MD I spent a total of 30+ minutes on the date of the service which included preparing to see the patient, [id number] patient care, completing clinical documentation, obtaining and/or reviewing separately obtained history, performing a medically appropriate examination, counseling and educating the pa tient/family/caregiver, ordering medications, tests, or procedures, and communicating results to the patient/family/caregiver. PDMP website checked and validated. All prescriptions have been APPROPRIATELY filled. No suspiciousactivity was identified. 08/06/2024 by Jovon Wilder MD documented in this encounterC[facility] NotePatient Outreach (FPWADS) DEANDRA MCCRAY ([id number]) 1985 F Date Time Provider Department 07/23/24 JM CHILDRESS During your visit today, we recorded the following information about you: Allergies As of Date: 07/23/2024 Noted Allergy Reaction CODEINE 08/05/2016 8 - GI Upset PAXIL (PAROXETINE HCL) 04/24/2006 2 - Rash TYLENOL-CODEINE #3 (ACETAMINOPHEN*05/11/2005 8 - GI Upset Date Reviewed: 04/05/2024 Reviewed by: Karen Saul PA-C - Fully Assessed Visit Diagnosis:Encounter for screening mammogram for breast cancer [Z12.31] Order(s):[facility] SCREENING [facility]YLE [[id number]] Order #: [id number] FUTURE Prescriptions as of 08/23/2024 - buPROPion SR (WELLBUTRIN SR) 150 mg 12 hr tablet Take 1 tablet by mouth two times a day. - rimegepant (NURTEC ODT) 75 mg disintegrating tablet Take 1 tablet by mouth once daily as needed. - melatonin 3 mg tablet Take 1 tablet at 9-10PM nightly. - topiramate (TOPAMAX) 100 mg tablet take 1 tablet by mouth everyday at bedtime - albuterol HFA (PROVENTIL HFA, VENTOLIN HFA) 90 mcg/actuation inhaler INHALE 2 PUFFS BY MOUTH EVERY 6 HOURS NEEDED DIRECTED - NAPROXEN ORAL Take by mouth as needed. - ibuprofen (MOTRIN) 600 mg tablet TAKE 1 TABLET BY MOUTH EVERY 6 HOURS NEEDED FOR PAIN FOR 10 DAYS WITH FOOD/MILK FOR 10 DAYS - ondansetron (ZOFRAN) 4 mg tablet TAKE 1 TABLET BY MOUTH EVERY 6 HOURS NEEDED FOR NAUSEA/VOMITING FOR 5 DAYS Problem List As Of Date 07/23/2024 Noted Resolved RH ISOIMMUNIZAT-ANTEPART [O36.0990] 02/16/2006 12/17/2007 Lump or Mass in Breast [N63.0] 12/17/2007 12/09/2009 Mastodynia [N64.4] 12/17/2007 12/09/2009 ENDOMETRIOSIS NOS [N80.9] 12/17/2007 Dysmenorrhea [N94.6] 12/17/2007 04/14/2014 Female infertility of unspecified origin [N97.9]12/17/2007 12/05/2011 DIFFUS CYSTIC MASTOPATHY [N60.19] 01/04/2008 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0] 04/14/2014 Complex ovarian cyst [N83.299] 04/14/2014 Migraine with aura [G43.109] 07/17/2014 Tobacco abuse disorder [Z72.0] 01/13/2015 Chronic pelvic pain in female [R10.2, G89.29] 02/02/2016 Abnormal uterine bleeding [N93.9] 02/02/2016 Irritable bowel syndrome with diarrhea [K58.0] 02/02/2016 Gastroesophageal reflux disease [K21.9] 09/11/2020 Leg pain, bilateral [M79.604, M79.605] 04/26/2021 Palpitations [R00.2] 10/26/2021 Shortness of breath [R06.02] 03/25/2024 Precordial pain [R07.2] 03/25/2024 Encounter Status:Closed by EPIC, PRODUSER on 08/23/24[facility] 07-10-2024 Telephone encounter Note* Telephone Encounter - Karen Colon RN - 07/10/2024 11:06 AM EST Received orthopedic visit summary from [facility], LEONIDAS Hinojosa. DOS 07/09/24 for cervical spine. Placed in PCP Jm Childress MD inbox to review. [facility]01-15-[facility] Miscellaneous Notes* Telephone Encounter - Karen Colon RN - 07/10/2024 11:06 AM EST Received orthopedic visit summary from [facility], LEONIDAS Hinojosa. DOS 07/09/24 for cervical spine. Placed in PCP Jm Childress MD inbox to review. documented in this encounterC[facility]01-02-2025 Telephone encounter Note * Telephone Encounter - Eliza Conley - 06/27/2024 11:26 AM EST Pt would MRI from 05/11 be placed on disc for her appt on 06/07. Please advise and call pt when ready. Thank you [facility]01-02-2025 Miscellaneous Notes* Telephone Encounter - Eliza Conley - 06/27/2024 11:26 AM EST Pt would MRI from 05/11 be placed on disc for her appt on 06/07. Please advise and call pt when ready. Thank you documented in this encounterC[facility]12-20-2024 Telephone encounter Note * Telephone Encounter - Karen Colon RN - 06/14/2024 2:40 PM EST Received tilt table result from [facility] 06/11/24. Placed in CYNTHIA Diaz inbox to review. Karen Colon RN [facility]12-20-[facility]24 Miscellaneous Notes* Telephone Encounter - Karen Colon RN - 06/14/2024 2:40 PM EST Received tilt table result from [facility] 06/11/24. Placed in CYNTHIA Diaz inbox to review. Karen Colon RN documented in this encounterCleveland [facility]12-13-2024 Telephone encounter Note * Telephone Encounter - Pravin Merritt RN - 06/07/2024 3:22 PM EST [facility] calls to request recent lab orders from Karen Saul be faxed to them as patient is there to have labs done now. Faxed to [phone] per request. Confirmation received that fax went through. Pravin Merritt RN [facility]12-13-2024 Miscellaneous Notes* Telephone Encounter - Pravin Merritt RN - 06/07/2024 3:22 PM EST [facility] calls to request recent lab orders from Karen Saul be faxed to them as patient is there to have labs done now. Faxed to [phone] per request. Confirmation received that fax went through. Pravin Merritt RN documented in this encounterC[facility]12-12-2024 Telephone encounter Note * Telephone Encounter - Bryson Wills LPN - 06/06/2024 2:44 PM EST Patient called, verified name and date of , regarding Advised patient labs are needed prior to tilt table, pt verbalized understanding. Will have these done at [facility]. Bryson Wills LPN June 06, 2024 2:56 PM Once labs are done will fax OV & labs to [facility] Bryson Wills LPN June 06, 2024 2:57 PM [facility]12-12-2024 Miscellaneous Notes* Telephone Encounter - Bryson Wills LPN - 06/06/2024 2:44 PM EST Patient called, verified name and date of , regarding Advised patient labs are needed prior to tilt table, pt verbalized understanding. Will have these done at [facility]. Bryson Wills LPN June 06, 2024 2:56 PM Once labs are done will fax OV & labs to [facility] Bryson Wills LPN June 06, 2024 2:57 PM * Telephone Encounter - Karen Saul PA-C - 06/06/2024 2:05 PM EST Labs ordered. * Telephone Encounter - Maryam Pearson LPN - 06/06/2024 1:31 PM EST Indigo from [facility] Stress test Lab calling patient is scheduled for Monday 06/11 for tilt table. Patient needs to have labs done prior to that, CBC, CMP, Serum quantitative test done please. Copy of office notes explaining why tilt table test was ordered and lab results fax to [phone]. documented in this encounterC[facility]12-12-2024 Telephone encounter Note * Telephone Encounter - Karen Saul PA-C - 06/06/2024 2:05 PM EST Labs ordered. [facility]12-12-[facility] Telephone encounter Note* Telephone Encounter - Maryam Pearson LPN - 06/06/2024 1:31 PM EST Indigo from [facility] Stress test Lab calling patient is scheduled for Monday 06/11 for tilt table. Patient needs to have labs done prior to that, CBC, CMP, Serum quantitative test done please. Copy of office notes explaining why tilt table test was ordered and lab results fax to [phone]. [facility]12-10-[facility] Telephone encounter Note* Telephone Encounter - Sumanth Salazar RN - 06/04/2024 12:36 PM EST Spoke with pt. Notified of test results. Pt voices understanding. Sumanth Salazar RN [facility]12-10-2024 Miscellaneous Notes* Telephone Encounter - Sumanth Salazar RN - 06/04/2024 12:36 PM EST Spoke with pt. Notified of test results. Pt voices understanding. Sumanth Salazar RN * Telephone Encounter - Sumanth Salazar RN - 06/04/2024 12:34 PM EST ----- Message from Michele Gandhi MD sent at 06/04/2024 12:02 PM EST ----- Normal echo Inform the patient rhonda documented in this encounterCleveland [facility]12-10-2024 Telephone encounter Note * Telephone Encounter - Sumanth Salazar RN - 06/04/2024 12:34 PM EST ----- Message from Michele Gandhi MD sent at 06/04/2024 12:02 PM EST ----- Normal echo Inform the patient rhonda [facility]11-08-2024 Telephone encounter Note* Telephone Encounter - Cate Butler RN - 05/03/2024 9:48 AM EST Pt called and is notified of providers results and instructions. Pt voices understanding. Transferred to scheduled to set up appt with [facility]. Cate Butler RN [facility]11-08-2024 Miscellaneous Notes* Telephone Encounter - Cate Butler RN - 05/03/2024 9:48 AM EST Pt called and is notified of providers results and instructions. Pt voices understanding. Transferred to scheduled to set up appt with [facility]. Cate Butler RN * Telephone Encounter - Lovely Ham OCCA - 05/03/2024 9:41 AM EST TC to patient no answer. Left VM to return call to office. MALINDA Stallings * Telephone Encounter - Karen Saul PA-C - 05/03/2024 9:18 AM EST Patient's MRI of the neck shows narrowing at C5-C6. This is flattening the cord, but overall the cord signal is normal. I would like patient to see spine for further evaluation of this. documented in this encounterC[facility]11-08-2024 Telephone encounter Note * Telephone Encounter - Lovely Ham OCCA - 05/03/2024 9:41 AM EST TC to patient no answer. Left VM to return call to office. MALINDA Stallings [facility]11-08-2024 Telephone encounter Note* Telephone Encounter - Karen Saul PA-C - 05/03/2024 9:18 AM EST Patient's MRI of the neck shows narrowing at C5-C6. This is flattening the cord, but overall the cord signal is normal. I would like patient to see spine for further evaluation of this. [facility]11-06-[facility] History of Present illness Narrative* Parker Toledo RT(R) - 05/01/2024 10:00 AM EST Radiology Service Progress Note DATE OF SERVICE: May 01, 2024 TIME: 10:44 AM PATIENT IDENTITY VERIFICATION COMPLETED USING TWO (2) STANDARD IDENTIFIERS: Name and Date of confirmed by patient verbally. FALL SCREENING: Has the patient had 2 falls in the last year or 1 fall with injury or currently using an Ambulatory Assistive Device (Walker, Cane, Wheelchair, Crutches, etc.)? No PATIENT GENDER DATA: Female. status: : No status: NO. PATIENT RELEVANT IMPLANT DATA REVIEWED: Yes PATIENT PRESENTS WITH AN IMPLANTABLE OR ATTACHED CORRECTIONAL PROGRAM SPECIALIST: No ALLERGIES: Reviewed and unchanged CONTRAST ALLERGY: NO. EXAM: MRI - CONTRAST TYPE: GROUP II PERIPHERAL IV DATA: Ambulatory: A peripheral IV was started in the Left antecubital site with a Angio cath: 20 gauge. RADIOLOGY DEPARTMENT: MR; Exam(s) Completed: Spine: Cervical spine SIGNATURE: RT Wander(R) PATIENT NAME: Deandra Mccray DATE: May 01, 2024 TIME: 10:44 AM documented in this encounterCleveland Clinic Med[facility] Hospital11-06-2024 NoteHNO ID: [id number] Author: PARKER TOLEDO RT(R) Service: ? Author Type: Technologist Type: Progress Notes Filed: 05/01/2024 10:46 Note Text: Radiology Service Progress Note DATE OF SERVICE: May 01, 2024 TIME: 10:44 AM PATIENT IDENTITY VERIFICATION COMPLETED USING TWO (2) STANDARD IDENTIFIERS: Name and Date of confirmed by patient verbally. FALL SCREENING: Has the patient had 2 falls in the last year or 1 fall with injury or currently using an Ambulatory Assistive Device (Walker, Cane, Wheelchair, Crutches, etc.)? No PATIENT GENDER DATA: Female. status: : No status: NO. PATIENT RELEVANT IMPLANT DATA REVIEWED: Yes PATIENT PRESENTS WITH AN IMPLANTABLE OR ATTACHED CORRECTIONAL PROGRAM SPECIALIST: No ALLERGIES: Reviewed and unchanged CONTRAST ALLERGY: NO. EXAM: MRI - CONTRAST TYPE: GROUP II PERIPHERAL IV DATA: Ambulatory: A peripheral IV was started in the Left antecubital site with a Angio cath: 20 gauge. RADIOLOGY DEPARTMENT: MR; Exam(s) Completed: Spine: Cervical spine SIGNATURE: Parker Toledo, RT(R) PATIENT NAME: Deandra Mccray DATE: May 01, 2024 TIME: 10:44 [facility]10-11-2024 Instructions* Patient Instructions* Karen Saul PA-C - 04/05/2024 4:51 PM EDT Tilt table as planned EEG to look at your brain waves and rule out seizure. Continue with follow up with cardiology MRI of the cervical spine Increase water intake to 60-80 ounces a day, increase physical activity. Follow up after testing. documented in this encounterCleveland Clinic [facility]10-11-2024 NoteHNO ID: [id number] Author: KAREN SAUL PA-C Service: ? Author Type: Physician Heel Compressor Type: Progress Notes Filed: 04/05/2024 17:13 Note Text: ESTABLISHED PATIENT VISIT Last visit: 01/04/24 ASSESSMENT/PLAN: 1. Positional lightheadedness - ICD9: 780.4, ICD10: R42 (primary diagnosis) Patient reporting month-long episodes of multiple symptoms including positional lightheadedness, headaches, palpitations, fatigue, presyncope, unsteadiness, headaches, nausea and dizziness starting after she contracted COVID in 2020. Discussed with her primary care recently and is concerned that she has POTS and encouraged follow-up. Did not mention the symptoms at previous appointments but notes that in between flares she feels fine. Orthostatic vital signs today did show borderline POTS with elevation in heart rate at 26 bpm when standing. No signs of orthostatic hypotension. Discussed conservative therapies including increasing water intake, compression socks, exercise and salt. Will order tilt table test to evaluate for further signs of dysautonomia as she is not positive in the office. Additionally, due to palpitations that patient is reporting will order ZIO monitor for 14 days to look for any arrhythmias that may be contribute to her symptoms as well. 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 2. Intractable 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 - ICD9: 346.71, ICD10: G43.719 Notes that her headaches have worsened, but unfortunately unable to discussed this at length during today's appointment due to primary concern of possible POTS. Will continue with Topamax today and encouraged her to take Nurtec as needed for migraine management. Patient agrees and understands. 3. Pituitary tumor - ICD9: 239.7, ICD10: D49.7 Encouraged to follow-up with brain tumor but continues to defer this. 4. Dizziness - ICD9: 780.4, ICD10: R42 5. Palpitations - ICD9: 785.1, ICD10: R00.2 See above for plan. 6. Left hand weakness - ICD9: 728.87, ICD10: R29.898 Patient also reporting some left sided numbness and tingling when her flares occur, but on exam she does have some left hand weakness as well as some decrease sensation on the left hand to the right. Has some mild thenar atrophy on the left hand as well concerning for carpal tunnel syndrome. Discussed obtaining an EMG and patient is amenable to this. No weakness or sensory changes in the left leg. Did have MRI in August 2022 which did show stable pituitary tumor and patient was encouraged to follow-up with brain tumor. Do not feel further imaging is warranted at this time. Patient agreeable to treatment plan of care at this time, questions were answered. Patient to follow-up following completion of her studies. Follow-up: 3 months CHIEF COMPLAINT: follow up HISTORY OF PRESENT ILLNESS: Deandra Mccray is a 38 year old female, There were no vitals taken for this visit. with a PMH significant for migraine, PFO, tobacco use, cervical cancer, depression. Last seen for positoinal lightheadedness and headache on 01/04/24. Possible POTS, ordered Tilt and zio monitor. Encouraged FU with cards. On TPM for headaches. Ordered EMG for left hand weakness, did not get. Did not get tilt, had zio that did not show any arrhythmia. Saw Dr. Wilder on 04/01/24, started on gabapentin 300mg bid. Saw cardiology and ordered ECHO due to SOB. Patient presents for follow-up. Was recently seen by Dr. Wilder for sleep as well as headaches, paresthesias that she is been experiencing. Was prescribed gabapentin for symptoms but has not taken it due to concerns of it worsening her shortness of breath. Notes that over the last 2 months her headaches have continued to worsen, states that it feels like an electric shock in different spots of her head and that of full headache will start with associated photophobia, phonophobia, nausea, fatigue and lightheadedness. Will occasionally radiate into her neck and then she will get paresthesias down the left arm and occasionally the left leg. Is that she can get these paresthesias with without a headache, they can last for hours or all day. Unsure why her headache started increasing, notes that she gets few headaches every few weeks. No change to the headaches other than increased frequency. Is still on the Topamax without any significant side effects. Did have an MRI of her cervical spine ordered and will be done on May 01. Does note that her palpitations and POTS like symptoms have improved ever since the weather got cooler. Feels like the heat made things significantly worse. However, is concerned for next year when the weather starts going up again. Drinks about 2 bottles of Gatorade a day and eats a lot of salty foods. Tried compression socks but notes that they were uncomfortable. Patient also with chronic fatigue, feels like it is (more content not included)...[facility]10-11-[facility] History of Present illness Narrative* Karen Saul PA-C - 04/05/2024 4:25 PM EDT ESTABLISHED PATIENT VISIT Last visit: 01/04/24 ASSESSMENT/PLAN: 1. Positional lightheadedness - ICD9: 780.4, ICD10: R42 (primary diagnosis) Patient reporting month-long episodes of multiple symptoms including positional lightheadedness, headaches, palpitations, fatigue, presyncope, unsteadiness, headaches, nausea and dizziness starting after she contracted COVID in 2020. Discussed with her primary care recently and is concerned that she has POTS and encouraged follow-up. Did not mention the symptoms at previous appointments but notesthat in between flares she feels fine. Orthostatic vital signs today did show borderline POTS with elevation in heart rate at 26 bpm when standing. No signs of orthostatic hypotension. Discussed conservative therapies including increasing water intake, compression socks, exercise and salt. Will order tilt table test to evaluate for further signs of dysautonomia as she is not positive in the office. Additionally, due to palpitations that patient is reporting will order ZIO monitor for 14 days tolook for any arrhythmias that may be contribute to her symptoms as well. 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 2. Intractable 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 - ICD9: 346.71, ICD10: G43.719 Notes that her headaches have worsened, but unfortunately unable to discussed this at length duringtoday's appointment due to primary concern of possible POTS. Will continue with Topamax today and encouraged her to take Nurtec as needed for migraine management. Patient agrees and understands. 3. Pituitary tumor - ICD9: 239.7, ICD10: D49.7 Encouraged to follow-up with brain tumor but continues to defer this. 4. Dizziness - ICD9: 780.4, ICD10: R42 5. Palpitations - ICD9: 785.1, ICD10: R00.2 See above for plan. 6. Left hand weakness - ICD9: 728.87, ICD10: R29.898 Patient also reporting some left sided numbness and tingling when her flares occur, but on exam shedoes have some left hand weakness as well as some decrease sensation on the left hand to the right.Has some mild thenar atrophy on the left hand as well concerning for carpal tunnel syndrome. Discussed obtaining an EMG and patient is amenable to this. No weakness or sensory changes in the left leg. Did have MRI in August 2022 which did show stable pituitary tumor and patient was encouraged to follow-up with brain tumor. Do not feel further imaging is warranted at this time. Patient agreeable to treatment plan of care at this time, questions were answered. Patient to follow-up following completion of her studies. Follow-up: 3 months CHIEF COMPLAINT: follow up HISTORY OF PRESENT ILLNESS: Deandra Mccray is a 38 year old female, There were no vitals taken for this visit. with a PMH significant for migraine, PFO, tobacco use, cervical cancer, depression. Last seen for positoinal lightheadedness and headache on 01/04/24. Possible POTS, ordered Tilt and zio monitor. Encouraged FU with cards. On TPM for headaches. Ordered EMG for left hand weakness, did not get. Did not get tilt, had zio that did not show any arrhythmia. Saw Dr. Wilder on 04/01/24, started on gabapentin 300mg bid. Saw cardiology and ordered ECHO due to SOB. Patient presents for follow-up. Was recently seen by Dr. Wilder for sleep as well as headaches, paresthesias that she is been experiencing. Was prescribed gabapentin for symptoms but has not taken it due to concerns of it worsening her shortness of breath. Notes that over the last 2 months her headaches have continued to worsen, states that it feels like an electric shock in different spots of herhead and that of full headache will start with associated photophobia, phonophobia, nausea, fatigueand lightheadedness. Will occasionally radiate into her neck and then she will get paresthesias down the left arm and occasionally the left leg. Is that she can get these paresthesias with without a headache, they can last for hours or all day. Unsure why her headache started increasing, notes thatshe gets few headaches every few weeks. No change to the headaches other than increased frequency. Is still on the Topamax without any significant side effects. Did have an MRI of her cervical spine ordered and will be done on May 01. Does note that her palpitations and POTS like symptoms have improved ever since the weather got cooler. Feels like the heat made things significantly worse. However, is concerned for next year when the weather starts going up again. Drinks about 2 bottles of Gatorade a day and eats a lot of salty foods. Tried compression socks but notes that they were uncomfortable. Patient also with chronic fatigue, feels like it is worsening. Notes it is worse on the days she has a bowel movement but had a bowel movement today and states that she feels very out of it, very fatigued. Also notes that she is having some worsening shortness of breath, notes easily short of breath and states that she feels that she cannot take a full breath. Does follow with cardiology and had a n echo as well as a stress test scheduled in the next few weeks. Patient also notes that for the last few months she has been told she has been having episodes of tapping her right hand either against her head or tapping her fingers together for a few minutes at atime. States that she does not remember this, notes that her has it on video and states it happens intermittently. Notes she feels very fatigued after it happens but does not remove the episodes. No history of seizures in the past, unsure when this started. Unsure how often it happens. No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 demyelinating disease or history of myelitis with symptoms worse in hot vs cold. D/w pt and will proceed with MRI C spine. Note there is no mention of demyelinating lesions on prior MRI brain (agree on review of images). For discomfort will place on trial of gabapentin 300mg at 5PM and then again at 10PM (dinner and bedtime respectively). SE and ADRs d/w pt. Note that above concerns would not explain sob, and pt should follow up with cardiology and pulmonary (already scheduled). Also in ddx would be anxiety/panic, but would be dx of exclusion. 6. Chronic insomnia - ICD9: 780.52, ICD10: F51.04 7. 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 Does not endorse sleep onset insomnia. No RLS symptoms. No leg kicking and for that matter no PLMs on PSG. PSG did not show evidence of a sleep related breathing disorder. Suspect awakenings due to other conditions above, as well as chronic shift work with patient working the morning hours. Now waking at same time daily, but concern for inadequate melatonin release during bedtime hours resulting in awakenings. Will start on melatonin 3mg at about 8-9PM for purposes of consolidating melatonin release during the night time hours. Again SE and ADRs d/w pt. Jovon Wilder MD Medical Decision Making: Problems: Moderate: New problem with uncertain prognosis Data: Unique test result(s) reviewed: 2 Unique test(s) ordered: 1 Risk: Moderate: Drug management Medical Decision Making Level: 4 - Moderate PDMP website checked and validated. All prescriptions have been APPROPRIATELY filled. No suspiciousactivity was identified. 04/01/2024 by Jovon Wilder MD I spent a total of 45+ minutes on the date of the service which included preparing to see the patient, [id number] patient care, completing clinical documentation, obtaining and/or reviewing separately obtained history, performing a medically appropriate examination, counseling and educating the pa tient/family/caregiver, ordering medications, tests, or procedures, independently interpreting results (not separately reported), and communicating results to the patient/family/caregiver. . * Bryson Wills LPN - 04/01/2024 7:50 AM EDT documented in this [facility]24 NoteHNO ID: [id number] Author: BRYSON WILLS LPN Service: ? Author Type: LICENSED NURSE Type: Progress Notes Filed: 04/01/2024 09:03 Note Text:[facility]09-30-2024 NoteHNO ID: [id number] Author: MICHELE GANDHI MD Service: ? Author Type: Physician Type: Progress Notes Filed: 03/25/2024 16:02 Note Text: Michele Gandhi MD Interventional Cardiology [address] [place], [place] [id number] Chief Complaint Patient presents with: Recheck HISTORY OF PRESENT ILLNESS: Ms. Mccray is a 38 year old female seen my office today for assessment and management of chest pain and shortness of breath and palpitation patient able to quit smoking about a week ago she has been having recurrent episodes of racing heart with palpitation associated with shortness of breath usually happen at rest and at night not with physical activity she scheduled for tilt study for possible partial orthostatic tachycardia syndrome Patient noticed more frequent episodes of palpitation and shortness of breath with exertion Cardiac Risk Factors age (male over 45, female over 55), hyperlipidemia, history of smoking, family history of CAD 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 disorder Depression (non-psychotic) Endometriosis 06/26/2005 per in [place], diagnosed at laparoscopy, bowel involvement Genital herpes GERD (gastroesophageal reflux disease) 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 Leg pain, bilateral 04/26/2021 PFO (patent foramen ovale) 09/26/2011 TIA (transient ischemic attack) 09/28/2012 Tobacco use disorder PAST SURGICAL HISTORY Procedure Laterality Date CATH AND SALINE/CONTRAST SONOHYSTER/HYSTEROSALPI 2003 DELIVERY ONLY 03/25/06-baby C/S, low cervical 15 WEEK GESTATION BABY DELIVERY ONLY 2009 , low transverse DELIVERY ONLY 05/17/2011 , low transverse COLONOSCOPY FLX DX W/COLLJ SPEC WHEN PFRMD 12/19/2012 Colonoscopy COLONOSCOPY FLX DX W/COLLJ SPEC WHEN PFRMD 04/22/2020 Colonoscopy COLPOSCOPY CERVIX UPPER/ADJACENT VAGINA 2007 Colposcopy CONIZATION CERVIX W/WO DANDC RPR ELTRD EXC 2008 LEEP-Cervix ESOPHAGOGASTRODUODENOSCOPY TRANSORAL DIAGNOSTIC 12/19/2012 EGD ESOPHAGOGASTRODUODENOSCOPY TRANSORAL DIAGNOSTIC 04/22/2020 EGD EXT HYSTERECTOMY,W/PARTIAL VAGINECTO 05/29/2023 EXT HYSTERECTOMY,W/PARTIAL VAGINECTO 11/2023 INSERTION OF IUD 06/24/2013 LAPS ABD PRTMANDOMENTUM DX W/WO SPEC BR/WA SPX 2005 Laparoscopy X2 Endometriosis LAPS ABD PRTMANDOMENTUM DX W/WO SPEC BR/WA SPX 2007 Laparoscopy LIG/TRNSXJ FLP TUBE ABDL/VAG APPR UNI/BI 05/17/2011 Tubal ligation PAST SURGICAL HISTORY OF 2000 SCALP LESION FAMILY HISTORY Problem Relation Age of Onset other (OVARIAN REMNANT SYNDROME) Mother age 52 pulmonary other (SLE) Mother Hypertension Mother Hyperlipidemia Mother Stroke Mother Heart Failure Mother COPD Mother Coronary Artery Disease Father age 58 MVA (motorcycle) Hypertension Father Hyperlipidemia Father Diabetes Father Developmental problem Sister MENTAL RETARDATION/SEXUAL ADDICTION Heart Maternal Grandmother ENLARGED HEART Cancer Maternal Grandfather LUNG Heart Maternal Grandfather [place] Diabetes Maternal Grandfather Heart Paternal Grandfather [place] Stroke Paternal Grandfather Diabetes Paternal Grandfather Heart Other MGGM ENLARGED HEART Aneurysm No Family History Social History Tobacco Use Smoking status: Former Current packs/day: 1.00 Average packs/day: 1 pack/day for 24.0 years (24.0 ttl pk-yrs) Types: Cigarettes Smokeless tobacco: Never Tobacco comments: 03/10- has cut down to 4 cigs/day Vaping Use Vaping status: Never Used Substance Use Topics Alcohol use: No Drug use: No Comment: Never ALLERGIES Allergen Reactions Codeine GI Upset Paxil [Paroxetine H* Rash Tylenol-Codeine #3 * GI Upset Medications: Current Outpatient Medications Medication Sig Dispense Refill omeprazole (PRILOSEC) 20 mg capsule Take 1 capsule by mouth once daily. 30 capsule 2 topiramate (TOPAMAX) 100 mg tablet take 1 tablet by mouth everyday at bedtime 30 tablet 3 albuterol HFA (PROVENTIL HFA, VENTOLIN HFA) 90 mcg/actuation inhaler INHALE 2 PUFFS BY MOUTH EVERY 6 HOURS NEEDED DIRECTED 6.7 Each 2 NAPROXEN ORAL Take by mouth as needed. ibuprofen (MOTRIN) 600 mg tablet TAKE 1 TABLET BY MOUTH EVERY 6 HOURS NEEDED FOR PAIN FOR 10 DAYS WITH FOOD/MILK FOR 10 DAYS ondansetron (ZOFRAN) 4 mg tablet TAKE 1 TABLET BY MOUTH EVERY 6 HOURS NEEDED FOR NAUSEA/VOMITING FOR 5 DAYS No current facility-administered medications for this visit. Review of Systems Constitutional: Negative for chills, diaphoresis, fever, malaise/fatigue and weight loss. HENT: Negative for congestion, ear discharge, ear pain, hearing loss, nosebleeds, sinus pain, sore throat and tinnitus. Eyes: Negative for blurred vision, double vision, photophobia, pain, discharge and redness. Respiratory: Po (more content not included)...[facility] 03-25-2024 History of Present illness Narrative* Michele Gandhi MD - 03/25/2024 3:58 PM EDT Images from the original note were not included. Michele Gandhi MD Interventional Cardiology [address] [place] [address] Chief Complaint Patient presents with: Recheck HISTORY OF PRESENT ILLNESS: Ms. Mccray is a 38 year old female seen my office today for assessment and management of chest painand shortness of breath and palpitation patient able to quit smoking about a week ago she has been having recurrent episodes of racing heart with palpitation associated with shortness of breath usually happen at rest and at night not with physical activity she scheduled for tilt study for possible partial orthostatic tachycardia syndrome Patient noticed more frequent episodes of palpitation and shortness of breath with exertion Cardiac Risk Factors age (male over 45, female over 55), hyperlipidemia, history of smoking, family history of CAD 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 disorder Depression (non-psychotic) Endometriosis 06/26/[address] soto [place], diagnosed at laparoscopy, bowel involvement Genital herpes GERD (gastroesophageal reflux disease) 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 Leg pain, bilateral 04/26/2021 PFO (patent foramen ovale) 09/26/2011 TIA (transient ischemic attack) 09/28/2012 Tobacco use disorder PAST SURGICAL HISTORY Procedure Laterality Date CATH & SALINE/CONTRAST SONOHYSTER/HYSTEROSALPI 2003 DELIVERY ONLY 03/25/06-baby C/S, low cervical 15 WEEK GESTATION BABY DELIVERY ONLY 2009 , low transverse DELIVERY ONLY 05/17/2011 , low transverse COLONOSCOPY FLX DX W/COLLJ SPEC WHEN PFRMD 12/19/2012 Colonoscopy COLONOSCOPY FLX DX W/COLLJ SPEC WHEN PFRMD 04/22/2020 Colonoscopy COLPOSCOPY CERVIX UPPER/ADJACENT VAGINA 2007 Colposcopy CONIZATION CERVIX W/WO D&C RPR ELTRD EXC 2008 LEEP-Cervix ESOPHAGOGASTRODUODENOSCOPY TRANSORAL DIAGNOSTIC 12/19/2012 EGD ESOPHAGOGASTRODUODENOSCOPY TRANSORAL DIAGNOSTIC 04/22/2020 EGD EXT HYSTERECTOMY,W/PARTIAL VAGINECTO 05/29/2023 EXT HYSTERECTOMY,W/PARTIAL VAGINECTO 11/2023 INSERTION OF IUD 06/24/2013 LAPS ABD PRTM&OMENTUM DX W/WO SPEC BR/WA SPX 2005 Laparoscopy X2 Endometriosis LAPS ABD PRTM&OMENTUM DX W/WO SPEC BR/WA SPX 2007 Laparoscopy LIG/TRNSXJ FLP TUBE ABDL/VAG APPR UNI/BI 05/17/2011 Tubal ligation PAST SURGICAL HISTORY OF 2000 SCALP L[place]ION FAMILY HISTORY Problem Relation Age of Onset other (OVARIAN REMNANT SYNDROME) Mother age 52 pulmonary other (SLE) Mother Hypertension Mother Hyperlipidemia Mother Stroke Mother Heart Failure Mother COPD Mother Coronary Artery Disease Father age 58 MVA (motorcycle) Hypertension Father Hyperlipidemia Father Diabetes Father Developmental problem Sister MENTAL RETARDATION/SEXUAL ADDICTION Heart Maternal Grandmother ENLARGED HEART Cancer Maternal Grandfather LUNG Heart Maternal Grandfather [place] Diabetes Maternal Grandfather Heart Paternal Grandfather [place] Stroke Paternal Grandfather Diabetes Paternal Grandfather Heart Other MGGM ENLARGED HEART Aneurysm No Family History Social History Tobacco Use Smoking status: Former Current packs/day: 1.00 Average packs/day: 1 pack/day for 24.0 years (24.0 ttl pk-yrs) Types: Cigarettes Smokeless tobacco: Never Tobacco comments: 03/10- has cut down to 4 cigs/day Vaping Use Vaping status: Never Used Substance Use Topics Alcohol use: No Drug use: No Comment: Never ALLERGIES Allergen Reactions Codeine GI Upset Paxil [Paroxetine H* Rash Tylenol-Codeine #3 * GI Upset Medications: Current Outpatient Medications Medication Sig Dispense Refill omeprazole (PRILOSEC) 20 mg capsule Take 1 capsule by mouth once daily. 30 capsule 2 topiramate (TOPAMAX) 100 mg tablet take 1 tablet by mouth everyday at bedtime 30 tablet 3 albuterol HFA (PROVENTIL HFA, VENTOLIN HFA) 90 mcg/actuation inhaler INHALE 2 PUFFS BY MOUTH EVERY 6 HOURS NEEDED DIRECTED 6.7 Each 2 NAPROXEN ORAL Take by mouth as needed. ibuprofen (MOTRIN) 600 mg tablet TAKE 1 TABLET BY MOUTH EVERY 6 HOURS NEEDED FOR PAIN FOR 10 DAYS WITH FOOD/MILK FOR 10 DAYS ondansetron (ZOFRAN) 4 mg tablet TAKE 1 TABLET BY MOUTH EVERY 6 HOURS NEEDED FOR NAUSEA/VOMITINGFOR 5 DAYS No current facility-administered medications for this visit. Review of Systems Constitutional: Negative for chills, diaphoresis, fever, malaise/fatigue and weight loss. HENT: Negative for congestion, ear discharge, ear pain, hearing loss, nosebleeds, sinus pain, sore throat and tinnitus. Eyes: Negative for blurred vision, double vision, photophobia, pain, discharge and redness. Respiratory: Positive for shortness of breath. Negative for cough, hemoptysis, sputum production, wheezing and stridor. Cardiovascular: Positive for chest pain. Negative for palpitations, orthopnea, claudication, leg swelling and PND. Gastrointestinal: Negative for abdominal pain, blood in stool, constipation, diarrhea, heartburn, melena, nausea and vomiting. Genitourinary: Negative for dysuria, flank pain, frequency, hematuria and urgency. Musculoskeletal: Negative for back pain, falls, joint pain, myalgias and neck pain. Skin: Negative for itching and rash. Neurological: Negative for dizziness, tingling, tremors, sensory change, speech change, focal weakness, seizures, loss of consciousness, weakness and headaches. Endo/Heme/Allergies: Negative for environmental allergies and polydipsia. Does not bruise/bleed easily. Psychiatric/Behavioral: Negative for depression, hallucinations, memory loss, substance abuse and suicidal ideas. The patient is not nervous/anxious and does not have insomnia. Physical Examination: Vitals:BP 106/59 Pulse 79 Ht 5' 4 (1.63m) Wt 143 lb (64.9kg) SpO2 97% LMP 12/19/2023 BMI 24.53 kg/(m^2). BP w/Orthostatic Vitals Date and Time Orthostatic BP Orthostatic Pulse BP Pulse BP Position BP Site BP Cuff Size 03/25/24 1541 -- -- 106/59 79 -- Left Arm -- Last 2 Encounter Wt Readings: Date: Wt: 03/25/2024 64.9 kg (143 lb) 03/19/2024 61.7 kg (136 lb) Physical Exam Constitutional: General: She is not in acute distress. Appearance: She is not diaphoretic. HENT: Head: Normocephalic and atraumatic. Right Ear: External ear normal. Left Ear: External ear normal. Nose: Nose normal. Mouth/Throat: Pharynx: Oropharynx is clear. Eyes: General: Right eye: No discharge. Left eye: No discharge. Conjunctiva/sclera: Conjunctivae normal. Pupils: Pupils are equal, round, and reactive to light. Cardiovascular: Rate and Rhythm: Normal rate and regular rhythm. Heart sounds: Normal heart sounds, S1 normal and S2 normal. No murmur heard. No friction rub. No gallop. No S3 or S4 sounds. Pulmonary: Effort: Pulmonary effort is normal. No respiratory distress. Breath sounds: Normal breath sounds. No wheezing or rales. Chest: Chest wall: No tenderness. Abdominal: General: Abdomen is flat. Musculoskeletal: General: Normal range of motion. Cervical back: Normal range of motion and neck supple. Skin: General: Skin is warm and dry. Neurological: Mental Status: She is alert and oriented to person, place, and time. Psychiatric: Mood and Affect: Mood normal. Thought Content: Thought content normal. Judgment: Judgment normal. Pertinent Labs: CBC: Hemoglobin (g/dL) Date Value 06/14/2023 12.9 02/18/2020 14.4 Hematocrit (%) Date Value 06/14/2023 38.7 02/18/2020 42.8 WBC (k/uL) Date Value 06/14/2023 7.26 02/18/2020 7.28 Platelet Count (k/uL) Date Value 06/14/2023 190 02/18/2020 187 BMP: Glucose (mg/dL) Date Value 06/14/2023 99 03/06/2020 84 Potassium (mmol/L) Date Value 06/14/2023 3.6 03/06/2020 4.3 Sodium (mmol/L) Date Value 06/14/2023 140 03/06/2020 142 Chloride (mmol/L) Date Value 06/14/2023 112 03/06/2020 107 CO2 (mmol/L) Date Value 06/14/2023 21 03/06/2020 26 Creatinine (mg/dL) Date Value 06/14/2023 0.79 03/06/2020 0.75 BUN (mg/dL) Date Value 06/14/2023 10 03/06/2020 8 Anion Gap (mmol/L) Date Value 06/14/2023 7 03/06/2020 9 Calcium (mg/dL) Date Value 03/06/2020 9.4 Calcium, Total (mg/dL) Date Value 06/14/2023 8.8 INR: Lipid Profile: Cholesterol, Total Date Value Ref Range Status 01/15/2015 171 100 - 199 mg/dL Final HDL Cholesterol Date Value Ref Range Status 01/15/2015 52 (L) >55 mg/dL Final LDL Cholesterol Date Value Ref Range Status 01/15/2015 109 60 - 129 mg/dL Final Triglyceride Date Value Ref Range Status 01/15/2015 51 30 - 149 mg/dL Final Hemoglobin A1C: No results found for: HGBA1C TSH: No results found for: TSHREFL Prior Cardiac Testing none Assessment and Plan: 38 years old female patient with exertional dyspnea chest pain and palpitation ASSESSMENT/PLAN: 1. Shortness of breath - ICD9: 786.05, ICD10: R06.02 (primary diagnosis) Risk stratification with stress echo and echocardiography - ECHO - PERFLUTREN LIPID MICROSPHERES 1.1 MG/ML INJECTION IN NS 10 ML - SODIUM CHLORIDE 0.9 % (FLUSH) INJECTION SYRINGE - STRESS ECHO TREADMILL - PERFLUTREN LIPID MICROSPHERES 1.1 MG/ML INJECTION IN NS 10 ML - SODIUM CHLORIDE 0.9 % (FLUSH) INJECTION SYRINGE 2. Precordial pain - ICD9: 786.51, ICD10: R07.2 Chest pain of unclear etiology, patient with significant risk factor(s) of Hyperlipidemia and smoking -Stress test for evaluation 3. PFO (patent foramen ovale) - ICD9: 745.5, ICD10: Q21.12 Patent foramen ovale by echo no history of TIA or stroke no indication for intervention Michele Gandhi MD Follow up planning: One year Electronically signed by Michele Gandhi MD on March 25, 2024, 3:58 PM The above note was partially created using a dictation recognition software. A reasonable attempt has been made to correct any errors. documented in this encounterC[facility]09-24-[facility] Note. MICRO - Microbiology PROCEDURE: Affirm Pathogens DNA Direct Probe [*1] SOURCE: Vaginal Fluid BODY SITE: Vaginal Wall COLLECTED DATE/TIME: 03/18/2024 13:20 EDT RECEIVED DATE/TIME: 03/18/2024 19:28 EDT START DATE/TIME: 03/18/2024 19:28 EDT FREE TEXT SOURCE: FINAL REPORTS Final Report [] Verified Date/Time/Personnel: 03/19/2024 10:22 EDT Gardnerella vaginalis DNA Probe Negative Trichomonas vaginalis DNA Probe Negative Malorie species DNA Probe Negative Performing Locations *1: This test was performed at: [address], [facility] , [facility]09-24-2024 Instructions* Patient Instructions* Bowen Ma APRN.CNP - 03/19/2024 9:37 AM EDT - start linzess 290 mcg once a day 1/2 hour before a meal. Let me know if helpful or not. documented in this encounterC[facility]09-24-2024 NoteHNO ID: [id number] Author: BOWEN MA APRN.MANNIE Service: ? Author Type: Nurse Practitioner Type: Progress Notes Filed: 03/19/2024 09:43 Note Text: CHIEF COMPLAINT: Patient presents with: Constipation: Still having pain and symptoms are worsening HPI Deandra Mccray is a 38 year old female here today for Constipation (Still having pain and symptoms are worsening). Last seen by Breanne Bowden PA-c in 05/2023. She is having issues with LUQ pressure and tightness and in her back and shoulder. She is wondering if she has a pinched nerve (it ends up affecting her whole left side). Cardiac has been ruled out, but will be seeing cardiology on Monday. Symptoms worse if having a BM. She has bloating. She is having a BM less than once a week. (+) straining to have a BM, with nausea. She has tried and failed miralax, fiber, and lactulose. She had surgery in 05/2023 (partial hysterectomy), and was taken off many meds, and after her surgery her bowels improved for a period of time (a couple weeks). Now symptoms back. She didn't actually get to try the linzess. 3-4 weeks ago, quit smoking due to SOB. Current Outpatient Medications Medication Sig topiramate (TOPAMAX) 100 mg tablet take 1 tablet by mouth everyday at bedtime albuterol HFA (PROVENTIL HFA, VENTOLIN HFA) 90 mcg/actuation inhaler INHALE 2 PUFFS BY MOUTH EVERY 6 HOURS NEEDED DIRECTED midodrine (PROAMATINE) 2.5 mg tablet TAKE 1 TABLET BY MOUTH TWO TIMES A DAY. FOR LOW BLOOD PRESSURE. NAPROXEN ORAL Take by mouth. hydrOXYzine pamoate (VISTARIL) 25 mg capsule ibuprofen (MOTRIN) 600 mg tablet TAKE 1 TABLET BY MOUTH EVERY 6 HOURS NEEDED FOR PAIN FOR 10 DAYS WITH FOOD/MILK FOR 10 DAYS ondansetron (ZOFRAN) 4 mg tablet TAKE 1 TABLET BY MOUTH EVERY 6 HOURS NEEDED FOR NAUSEA/VOMITING FOR 5 DAYS oxyCODONE-acetaminophen (PERCOCET) 5-325 mg tablet No current facility-administered medications for this visit. ALLERGIES Allergen Reactions Codeine GI Upset Paxil [Paroxetine H* Rash Tylenol-Codeine #3 * GI Upset Social History Tobacco Use Smoking status: Former Current packs/day: 1.00 Average packs/day: 1 pack/day for 24.0 years (24.0 ttl pk-yrs) Types: Cigarettes Smokeless tobacco: Never Tobacco comments: 03/10- has cut down to 4 cigs/day Vaping Use Vaping status: Never Used Substance Use Topics Alcohol use: No Drug use: No Comment: Never 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 Leg pain, bilateral 04/26/2021 PFO (patent foramen ovale) 09/26/2011 TIA (transient ischemic attack) 09/28/2012 Tobacco use disorder PAST SURGICAL HISTORY Procedure Laterality Date CATH AND SALINE/CONTRAST SONOHYSTER/HYSTEROSALPI 2004 DELIVERY ONLY 03/25/06-baby C/S, low cervical 15 WEEK GESTATION BABY DELIVERY ONLY 2009 , low transverse DELIVERY ONLY 05/17/2011 , low transverse COLONOSCOPY FLX DX W/COLLJ SPEC WHEN PFRMD 12/19/2012 Colonoscopy COLONOSCOPY FLX DX W/COLLJ SPEC WHEN PFRMD 04/22/2020 Colonoscopy COLPOSCOPY CERVIX UPPER/ADJACENT VAGINA 2008 Colposcopy CONIZATION CERVIX W/WO DANDC RPR ELTRD EXC 2008 LEEP-Cervix ESOPHAGOGASTRODUODENOSCOPY TRANSORAL DIAGNOSTIC 12/19/2012 EGD ESOPHAGOGASTRODUODENOSCOPY TRANSORAL DIAGNOSTIC 04/22/2020 EGD EXT HYSTERECTOMY,W/PARTIAL VAGINECTO 05/29/2023 EXT HYSTERECTOMY,W/PARTIAL VAGINECTO 11/2023 INSERTION OF IUD 06/24/2013 LAPS ABD PRTMANDOMENTUM DX W/WO SPEC BR/WA SPX 2006 Laparoscopy X2 Endometriosis LAPS ABD PRTMANDOMENTUM DX W/WO SPEC BR/WA SPX 2008 Laparoscopy LIG/TRNSXJ FLP TUBE ABDL/VAG APPR UNI/BI 05/17/2011 Tubal ligation PAST SURGICAL HISTORY OF 2000 SCALP LESION FAMILY HISTORY Problem Relation Age of Onset other (OVARIAN REMNANT SYNDROME) Mother age 52 pulmonary other (SLE) Mother Hypertension Mother Hyperlipidemia Mother Stroke Mother Heart Failure Mother COPD Mother Coronary Artery Disease Father age 58 MVA (motorcycle) Hypertension Father Hyperlipidemia Father Diabetes Father Developmental problem Sister MENTAL RETARDATION/SEXUAL ADDICTION Heart Maternal Grandmother ENLARGED HEART Cancer Maternal Grandfather LUNG Heart Maternal Grandfather [place] Diabetes Maternal Grandfather Heart Paternal Grandfather [place] Stroke Paternal Grandfather Diabetes Paternal Grandfather Heart Other MGGM ENLARGED HEART Aneurysm No Family History REVIEW OF SYSTEMS Review of Systems Constitutional: Positive for appetite change and fatigue. HENT: Positive for trouble swallowing. Respiratory (more content not included)...[facility]09-24-2024 History of Present illness Narrative* Bowen Ma, XENIA.GEOGRAPHY HEAD - 03/19/2024 9:14 AM EDT CHIEF COMPLAINT: Patient presents with: Constipation: Still having pain and symptoms are worsening HPI Deandra Mccray is a 38 year old female here today for Constipation (Still having pain and symptoms are worsening). Last seen by Breanne Bowden PA-c in 05/2023. She is having issues with LUQ pressure and tightness and in her back and shoulder. She is wonderingif she has a pinched nerve (it ends up affecting her whole left side). Cardiac has been ruled out, but will be seeing cardiology on Monday. Symptoms worse if having a BM. She has bloating. She is having a BM less than once a week. (+) straining to have a BM, with nausea. She has tried and failed miralax, fiber, and lactulose. She had surgery in 05/2023 (partial hysterectomy), and was taken off many meds, and after her surgery her bowels improved for a period of time (a couple weeks). Now symptoms back. She didn't actually get to try the linzess. 3-4 weeks ago, quit smoking due to SOB. Current Outpatient Medications Medication Sig topiramate (TOPAMAX) 100 mg tablet take 1 tablet by mouth everyday at bedtime albuterol HFA (PROVENTIL HFA, VENTOLIN HFA) 90 mcg/actuation inhaler INHALE 2 PUFFS BY MOUTH EVERY 6 HOURS NEEDED DIRECTED midodrine (PROAMATINE) 2.5 mg tablet TAKE 1 TABLET BY MOUTH TWO TIMES A DAY. FOR LOW BLOOD PRESSURE. NAPROXEN ORAL Take by mouth. hydrOXYzine pamoate (VISTARIL) 25 mg capsule ibuprofen (MOTRIN) 600 mg tablet TAKE 1 TABLET BY MOUTH EVERY 6 HOURS NEEDED FOR PAIN FOR 10 DAYS WITH FOOD/MILK FOR 10 DAYS ondansetron (ZOFRAN) 4 mg tablet TAKE 1 TABLET BY MOUTH EVERY 6 HOURS NEEDED FOR NAUSEA/VOMITINGFOR 5 DAYS oxyCODONE-acetaminophen (PERCOCET) 5-325 mg tablet No current facility-administered medications for this visit. 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 Leg pain, bilateral 04/26/2021 PFO (patent foramen ovale) 09/26/2011 TIA (transient ischemic attack) 09/28/2012 Tobacco use disorder PAST SURGICAL HISTORY Procedure Laterality Date CATH & SALINE/CONTRAST SONOHYSTER/HYSTEROSALPI 2003 DELIVERY ONLY 03/25/06-baby C/S, low cervical 15 WEEK GESTATION BABY DELIVERY ONLY 2009 , low transverse DELIVERY ONLY 05/17/2011 , low transverse COLONOSCOPY FLX DX W/COLLJ SPEC WHEN PFRMD 12/19/2012 Colonoscopy COLONOSCOPY FLX DX W/COLLJ SPEC WHEN PFRMD 04/22/2020 Colonoscopy COLPOSCOPY CERVIX UPPER/ADJACENT VAGINA 2007 Colposcopy CONIZATION CERVIX W/WO D&C RPR ELTRD EXC 2008 LEEP-Cervix ESOPHAGOGASTRODUODENOSCOPY TRANSORAL DIAGNOSTIC 12/19/2012 EGD ESOPHAGOGASTRODUODENOSCOPY TRANSORAL DIAGNOSTIC 04/22/2020 EGD EXT HYSTERECTOMY,W/PARTIAL VAGINECTO 05/29/2023 EXT HYSTERECTOMY,W/PARTIAL VAGINECTO 11/2023 INSERTION OF IUD 06/24/2013 LAPS ABD PRTM&OMENTUM DX W/WO SPEC BR/WA SPX 2006 Laparoscopy X2 Endometriosis LAPS ABD PRTM&OMENTUM DX W/WO SPEC BR/WA SPX 2008 Laparoscopy LIG/TRNSXJ FLP TUBE ABDL/VAG APPR UNI/BI 05/17/2011 Tubal ligation PAST SURGICAL HISTORY OF 2000 SCALP LESION FAMILY HISTORY Problem Relation Age of Onset other (OVARIAN REMNANT SYNDROME) Mother age 52 pulmonary other (SLE) Mother Hypertension Mother Hyperlipidemia Mother Stroke Mother Heart Failure Mother COPD Mother Coronary Artery Disease Father age 58 MVA (motorcycle) Hypertension Father Hyperlipidemia Father Diabetes Father Developmental problem Sister MENTAL RETARDATION/SEXUAL ADDICTION Heart Maternal Grandmother ENLARGED HEART Cancer Maternal Grandfather LUNG Heart Maternal Grandfather [place] Diabetes Maternal Grandfather Heart Paternal Grandfather [place] Stroke Paternal Grandfather Diabetes Paternal Grandfather Heart Other MGGM ENLARGED HEART Aneurysm No Family History REVIEW OF SYSTEMS Review of Systems Constitutional: Positive for appetite change and fatigue. HENT: Positive for trouble swallowing. Respiratory: Positive for cough, chest tightness and shortness of breath. Cardiovascular: Positive for chest pain, palpitations and leg swelling. Gastrointestinal: Positive for abdominal distention, abdominal pain, constipation, diarrhea, nauseaand rectal pain. Change in bowel habits, Gas All other systems reviewed and are negative. PHYSICAL EXAM Pulse 71 Ht 5' 3.5 (1.61m) Wt 136 lb (61.7kg) LMP 12/19/2023 BMI 23.71 kg/(m^2). Physical Exam Vitals and nursing note reviewed. Constitutional: Appearance: Normal appearance. She is normal weight. HENT: Head: Normocephalic and atraumatic. Mouth/Throat: Mouth: Mucous membranes are moist. Eyes: General: No scleral icterus. Cardiovascular: Rate and Rhythm: Normal rate and regular rhythm. Pulmonary: Breath sounds: Normal breath sounds. Abdominal: General: Abdomen is flat. Bowel sounds are decreased. Palpations: Abdomen is soft. Tenderness: There is abdominal tenderness in the epigastric area and left upper quadrant. There is no guarding or rebound. Skin: General: Skin is warm and dry. Neurological: Mental Status: She is alert and oriented to person, place, and time. Psychiatric: Mood and Affect: Mood normal. Behavior: Behavior normal. Thought Content: Thought content normal. Judgment: Judgment normal. ASSESSMENT: (K59.09) Chronic constipation (primary encounter diagnosis) (K44.9, K21.9) Hiatal hernia with GERD (R10.12) Left upper quadrant abdominal pain 1. Chronic constipation - never got to try linzess. Will have her try 290mcg given abdominal pain and associated bloating. Linzess 290mcg PO daily 1/2 hour before a meal - check AXR to assess stool burden - call and let me know if working or not. - XR ABDOMEN 2V ROUTINE SUPINE W UPRIGHT/DECUB/CTL; Future 2. Hiatal hernia with GERD - restart omeprazole 20mg daily - omeprazole (PRILOSEC) 20 mg capsule; Take 1 capsule by mouth once daily. Dispense: 30 capsule; Refill: 2 3. Left upper quadrant abdominal pain - omeprazole (PRILOSEC) 20 mg capsule; Take 1 capsule by mouth once daily. Dispense: 30 capsule; Refill: 2 - XR ABDOMEN 2V ROUTINE SUPINE W UPRIGHT/DECUB/CTL; Future Follow up in office TBD based on results of xray Bowen Ma APRN.CNP March 19, 2024 9:41 AM [facility] Tele[facility] encounter Note * Telephone Encounter - Lovely Ham OCCA - 03/11/2024 10:59 AM EDT Prescription Refill Information The patient has been identified by name and date of : Yes Caregiver verified no other encounters exist for this prescription request: Yes Caregiver confirmed with patient/requestor that no other refills are due, in the near future, with this provider at this time: Yes The last office visit in the department: 01/04/2024 Does the patient have a future office visit with this provider/department: Yes, 04/05/2024 Requested Prescriptions Pending Prescriptions Disp Refills topiramate (TOPAMAX) 100 mg tablet [Pharmacy Med Name: TOPIRAMATE 100 MG TABLET] 30 tablet 3 Sig: take 1 tablet by mouth everyday at bedtime MALINDA Stallings March 11, 2024 11:00 AM [facility]09-16-2024 Miscellaneous Notes* Telephone Encounter - Lovely Ham OCCA - 03/11/2024 10:59 AM EDT Prescription Refill Information The patient has been identified by name and date of : Yes Caregiver verified no other encounters exist for this prescription request: Yes Caregiver confirmed with patient/requestor that no other refills are due, in the near future, with this provider at this time: Yes The last office visit in the department: 01/04/2024 Does the patient have a future office visit with this provider/department: Yes, 04/05/2024 Requested Prescriptions Pending Prescriptions Disp Refills topiramate (TOPAMAX) 100 mg tablet [Pharmacy Med Name: TOPIRAMATE 100 MG TABLET] 30 tablet 3 Sig: take 1 tablet by mouth everyday at bedtime MALINDA Stallings March 11, 2024 11:00 AM documented in [facility] encounterC[facility] Telephone encounter Note * Telephone Encounter - Jm Childress MD - 02/23/2024 11:46 AM EDT The following approved medication requests have been transmitted electronically. Requested Prescriptions Signed Prescriptions Disp Refills albuterol HFA (PROVENTIL HFA, VENTOLIN HFA) 90 mcg/actuation inhaler 6.7 Each 2 Sig: INHALE 2 PUFFS BY MOUTH EVERY 6 HOURS NEEDED DIRECTED Authorizing Provider: JM CHILDRESS MD [facility]08-30-2024 Miscellaneous Notes* Telephone Encounter - Jm Childress MD - 02/23/2024 11:46 AM EDT The following approved medication requests have been transmitted electronically. Requested Prescriptions Signed Prescriptions Disp Refills albuterol HFA (PROVENTIL HFA, VENTOLIN HFA) 90 mcg/actuation inhaler 6.7 Each 2 Sig: INHALE 2 PUFFS BY MOUTH EVERY 6 HOURS NEEDED DIRECTED Authorizing Provider: JM CHILDRESS MD * Telephone Encounter - Love Bal MA - 02/23/2024 9:09 AM EDT Prescription Refill Information The patient has been identified by name and date of : Yes Caregiver verified no other encounters exist for this prescription request: Yes Caregiver confirmed with patient/requestor that no other refills are due, in the near future, with this provider at this time: Yes The last office visit in the department: 12/19/23 Does the patient have a future office visit with this provider/department: No Requested Prescriptions Pending Prescriptions Disp Refills albuterol HFA (PROVENTIL HFA, VENTOLIN HFA) 90 mcg/actuation inhaler [Pharmacy Med Name: ALBUTEROL HFA (PROVENTIL) INH] 6.7 Each Sig: INHALE 2 PUFFS BY MOUTH EVERY 6 HOURS NEEDED DIRECTED Love Bal MA February 23, 2024 9:10 AM documented in [facility] encounterC[facility] Telephone encounter Note * Telephone Encounter - Love Bal MA - 02/23/2024 9:09 AM EDT Prescription Refill Information The patient has been identified by name and date of : Yes Caregiver verified no other encounters exist for this prescription request: Yes Caregiver confirmed with patient/requestor that no other refills are due, in the near future, with this provider at this time: Yes The last office visit in the department: 12/19/23 Does the patient have a future office visit with this provider/department: No Requested Prescriptions Pending Prescriptions Disp Refills albuterol HFA (PROVENTIL HFA, VENTOLIN HFA) 90 mcg/actuation inhaler [Pharmacy Med Name: ALBUTEROL HFA (PROVENTIL) INH] 6.7 Each Sig: INHALE 2 PUFFS BY MOUTH EVERY 6 HOURS NEEDED DIRECTED Love Bal MA February 23, 2024 9:10 AM [facility]08-[facility] Telephone encounter Note* Telephone Encounter - Lovely Ham OCCA - 02/14/2024 10:01 AM EDT TC to patient who verbalized understanding of below. Patient has appointment scheduled with Dr. Gandhi on 03/25. MALINDA Stallings [facility]08-21-2024 Miscellaneous Notes* Telephone Encounter - Lovely Ham OCCA - 02/14/2024 10:01 AM EDT TC to patient who verbalized understanding of below. Patient has appointment scheduled with Dr. Gandhi on 03/25. MALINDA Stallings * Telephone Encounter - Karen Saul PA-C - 02/14/2024 9:25 AM EDT Patient's heart monitor does not show any significant arrhythmia but due to her having regular palpitations, would like her to see a car park attendant. documented in this encounterC[facility] Telephone encounter Note * Telephone Encounter - Karen Saul PA-C - 02/14/2024 9:25 AM EDT Patient's heart monitor does not show any significant arrhythmia but due to her having regular palpitations, would like her to see a car park attendant. [facility]08-[facility] Telephone encounter Note* Telephone Encounter - Jm Childress MD - 02/12/2024 12:15 PM EDT The following approved medication requests have been transmitted electronically. Requested Prescriptions Signed Prescriptions Disp Refills midodrine (PROAMATINE) 2.5 mg tablet 60 tablet 1 Sig: TAKE 1 TABLET BY MOUTH TWO TIMES A DAY. FOR LOW BLOOD PRESSURE. Authorizing Provider: JM CHILDRESS MD [facility]08-19-20[facility] Miscellaneous Notes* Telephone Encounter - Jm Childress MD - 02/12/2024 12:15 PM EDT The following approved medication requests have been transmitted electronically. Requested Prescriptions Signed Prescriptions Disp Refills midodrine (PROAMATINE) 2.5 mg tablet 60 tablet 1 Sig: TAKE 1 TABLET BY MOUTH TWO TIMES A DAY. FOR LOW BLOOD PRESSURE. Authorizing Provider: JM CHILDRESS MD * Telephone Encounter - Val Mejias LPN - 02/12/2024 11:48 AM EDT Prescription Refill Information The patient has been identified by name and date of : Yes Caregiver verified no other encounters exist for this prescription request: Yes Caregiver confirmed with patient/requestor that no other refills are due, in the near future, with this provider at this time: Yes The last office visit in the department: 12/19/23 Does the patient have a future office visit with this provider/department: No Requested Prescriptions Pending Prescriptions Disp Refills midodrine (PROAMATINE) 2.5 mg tablet [Pharmacy Med Name: MIDODRINE HCL 2.5 MG TABLET] 60 tablet 1 Sig: TAKE 1 TABLET BY MOUTH TWO TIMES A DAY. FOR LOW BLOOD PRESSURE. Val Mejias LPN February 12, 2024 11:49 AM documented in this encounterC[facility] Telephone encounter Note * Telephone Encounter - Val Mejias LPN - 02/12/2024 11:48 AM EDT Prescription Refill Information The patient has been identified by name and date of : Yes Caregiver verified no other encounters exist for this prescription request: Yes Caregiver confirmed with patient/requestor that no other refills are due, in the near future, with this provider at this time: Yes The last office visit in the department: 12/19/23 Does the patient have a future office visit with this provider/department: No Requested Prescriptions Pending Prescriptions Disp Refills midodrine (PROAMATINE) 2.5 mg tablet [Pharmacy Med Name: MIDODRINE HCL 2.5 MG TABLET] 60 tablet 1 Sig: TAKE 1 TABLET BY MOUTH TWO TIMES A DAY. FOR LOW BLOOD PRESSURE. Val Mejias LPN February 12, 2024 11:49 AM [facility]08-[facility] Telephone encounter Note* Telephone Encounter - Jm Childress MD - 02/01/2024 1:41 PM EDT The following approved medication requests have been transmitted electronically. Requested Prescriptions Signed Prescriptions Disp Refills albuterol HFA (PROVENTIL HFA) 90 mcg/actuation inhaler 6.7 g 0 Sig: Inhale 2 Puffs as instructed every 6 hours as needed. Authorizing Provider: JM CHILDRESS MD [facility]08-08-[facility] Miscellaneous Notes* Telephone Encounter - Jm Childress MD - 02/01/2024 1:41 PM EDT The following approved medication requests have been transmitted electronically. Requested Prescriptions Signed Prescriptions Disp Refills albuterol HFA (PROVENTIL HFA) 90 mcg/actuation inhaler 6.7 g 0 Sig: Inhale 2 Puffs as instructed every 6 hours as needed. Authorizing Provider: JM CHILDRESS MD * Telephone Encounter - Rut Palafox RN - 02/01/2024 11:03 AM EDT Received a refill request via MyChart from patient for the following medication(s): Requested Prescriptions Pending Prescriptions Disp Refills albuterol HFA (PROVENTIL HFA) 90 mcg/actuation inhaler 1 Each 0 Sig: Inhale 2 Puffs as instructed every 6 hours as needed. The pharmacy has been populated. Last (Rx'd/filled) by 10/04/2023 by Jdu Denny CNP Last Appointment(s) 12/19/2023 w/Dr. Childress Next Appointment(s) NONE Routing to provider. Please review/advise. Rut Palafox RN documented in this encounterC[facility]-2024 Telephone encounter Note * Telephone Encounter - Rut Palafox RN - 02/01/2024 11:03 AM EDT Received a refill request via [employer] from patient for the following medication(s): Requested Prescriptions Pending Prescriptions Disp Refills albuterol HFA (PROVENTIL HFA) 90 mcg/actuation inhaler 1 Each 0 Sig: Inhale 2 Puffs as instructed every 6 hours as needed. The pharmacy has been populated. Last (Rx'd/filled) by 10/04/2023 by Jud Denny CNP Last Appointment(s) 12/19/2023 w/Dr. Childress Next Appointment(s) NONE Routing to provider. Please review/advise. Rut Palafox RN [facility]08-07-2024 Hospital Discharge instructions Patient Education 01/31/2024 18:44:36 Chest Pain, Noncardiac Noncardiac Chest Pain Based on your visit today, the healthcare provider doesn t know what is causing your chest pain. Inmost cases, people who come to the emergency department with chest pain don t have a problem with their heart. Instead, the pain is caused by other conditions. It's important for the healthcare team to be sure you are not having a life threatening cause for chest pain such as a heart attack, blood c lot in the lungs, collapsed lung, ruptured esophagus, or tearing of the aorta. Once these major causes have been ruled out, you may have further evaluation for non-heart causes of chest pain. These may be problems with the lungs, muscles, bones, digestive tract, nerves, or mental health. Lung problems Inflammation around the lungs (pleurisy) Collapsed lung (pneumothorax) Fluid around the lungs (pleural effusion) Lung cancer (a rare cause of chest pain) Muscle or bone problems Inflamed cartilage between the ribs (costochondritis) Fibromyalgia Rheumatoid arthritis Chest wall strain Digestive system problems Reflux Stomach ulcer Spasms of the esophagus Gall stones Gallbladder inflammation Mental health conditions Panic or anxiety attacks Emotional distress Your condition doesn t seem serious and your pain doesn t appear to be coming from your heart. But sometimes the signs of a serious problem take more time to appear. Watch for the warning signs listed below. Home care Follow these guidelines when caring for yourself at home: Rest today and avoid strenuous activity. Take any prescribed medicine as directed. Follow-up care Follow up with your healthcare provider, or as advised, if you don t start to feel better within 24hours. When to seek medical advice Call your healthcare provider right away if any of these occur: A change in the type of pain. Call if it feels different, becomes more serious, lasts longer, or begins to spread into your shoulder, arm, neck, jaw, or back. Shortness of breath You feel more pain when you breathe Cough with dark-colored mucus or blood Weakness, dizziness, or fainting Fever of 100.4 F (38 C) or higher, or as directed by your healthcare provider Swelling, pain, or redness in one leg [id number] [employer]. [address] [place] [address]. All rights reserved. This information is not intended as a substitute for professional medical care. Always follow yourhealthcare professional's instructions. Follow Up Care 01/31/2024 15:00:37 With:JM CHILDRESS MD Address: [address] [place] [phone] When:2-4 days [facility] 08-07-2024 Note Discharge Instructions Thank you for allowing [facility] to assist you with your healthcare needs. The following is importantdischarge information regarding your hospital visit. What to Do Next Instructions from Your Care Team No qualifying data available. Post Acute Orders No qualifying data available. You Need to Schedule the Following Appointments Follow Up with JM CHILDRESS MD When:Within 2-4 days Where:[address] [place] [address] [phone] Allergies Tylenol with Codeine (Moderate) Migraine Bleach rash Paxil vomiting Medications Please ask your primary doctor or pharmacist before taking any other medication not listed, including over the counter drugs, herbal medications, vitamins and or supplements as they may interact withyour home medications. What When Instructions Last Dose Unchanged topiramate (topiramate 100 mg oral tablet) take 1 tablet by mouth at bedtime Please take this list to your next doctor s visit. Bring all medications you take, including over the counter medications, herbals and other supplements with you to your doctor s visit. Patients and families are reminded to discard old lists and to update any records with all medication providers or retail pharmacies. Education Materials Noncardiac Chest Pain Based on your visit today, the healthcare provider doesn t know what is causing your chest pain. Inmost cases, people who come to the emergency department with chest pain don t have a problem with their heart. Instead, the pain is caused by other conditions. It's important for the healthcare team to be sure you are not having a life threatening cause for chest pain such as a heart attack, blood c lot in the lungs, collapsed lung, ruptured esophagus, or tearing of the aorta. Once these major causes have been ruled out, you may have further evaluation for non-heart causes of chest pain. These may be problems with the lungs, muscles, bones, digestive tract, nerves, or mental health. Lung problems Inflammation around the lungs (pleurisy) Collapsed lung (pneumothorax) Fluid around the lungs (pleural effusion) Lung cancer (a rare cause of chest pain) Muscle or bone problems Inflamed cartilage between the ribs (costochondritis) Fibromyalgia Rheumatoid arthritis Chest wall strain Digestive system problems Reflux Stomach ulcer Spasms of the esophagus Gall stones Gallbladder inflammation Mental health conditions Panic or anxiety attacks Emotional distress Your condition doesn t seem serious and your pain doesn t appear to be coming from your heart. But sometimes the signs of a serious problem take more time to appear. Watch for the warning signs listed below. Home care Follow these guidelines when caring for yourself at home: Rest today and avoid strenuous activity. Take any prescribed medicine as directed. Follow-up care Follow up with your healthcare provider, or as advised, if you don t start to feel better within 24hours. When to seek medical advice Call your healthcare provider right away if any of these occur: A change in the type of pain. Call if it feels different, becomes more serious, lasts longer, or begins to spread into your shoulder, arm, neck, jaw, or back. Shortness of breath You feel more pain when you breathe Cough with dark-colored mucus or blood Weakness, dizziness, or fainting Fever of 100.4 F (38 C) or higher, or as directed by your healthcare provider Swelling, pain, or redness in one leg [phone] [employer]. [address] [place] [address], [place] [address]. All rights reserved. This information is not intended as a substitute for professional medical care. Always follow yourhealthcare professional's instructions. Additional Information VACCINATE! IT SAVES LIVES! Members of the community who have not yet received the COVID-19 vaccine and would like to receive it can visit one of [facility] vaccine clinics. There are many vaccine clinic locations within the [facility]. For locations and available times, please visit www.gettheshot.coronavirus.[place].gov/. It is important to note that some COVID mobile vaccine clinics are held outdoors and may be canceled in rainy or stormy conditions. To learn more about pediatric vaccinations (ages 5-11), we invite you to visit the [facility] webpage. https://www.Uniiverses.org/pages/2585-Zpgye-Krwkecsfsqd-Jzcmfytkkg-Xjusw-Slp stions.htmlTo learn more about the COVID-19 vaccine, we invite you to visit the CDC website for a list of frequently asked questions. https://www.cdc.gov/coronavirus/2019-ncov/vaccines/faq.html [facility] Patient Portal Access Instructions: Stay connected with your healthcare team and access your personal medical information anytime with the [facility] Patient Portal. If you would like a full copy of your medical records please contact the [facility] Medical Records Department Monday through Monday between 8a.m. and 4:30p.m. Please follow the directions below to access the portal: 1.Access the email account you provided upon registration to the hospital.2.Look for an invitation email from [facility].3.Open the email and access the invitation link: Accept Invitation to [facility]4.Fill in the required rose to create your account. Sign into [email or web address] Weekly Flower Delivery with your username and password that you created in the above steps to stay up to date. You can then view a summary of results, a summary of your visits, and the ability to download your summaries to your computer or send the information securely to a physician. Remember that your healthcare information is confidential, so carefully consider who you will allow to register on the [facility] Patient Portal for access to your information. You can also access the [facility] Patient Portal on the [employer] germain. Simply click on Health Records under [employer] and then click on the [employer] logo. HOW TO SAFELY DISPOSE OF PRESCRIPTION MEDICATIONS Please use one of the following methods to safely dispose of your unused medications. 1.Use a drug disposal kit: the drug disposal pouch allows you to safely discard your old and unuseddrugs. Ask your nurse to give you one when you are discharged.2.Visit a local take-back location: Many local pharmacies and police departments have programs that collect old and unwanted prescriptiondrugs. Call your local pharmacy or go to http://mParticle.Texxi/8X1Ro1w to find one close to you.3.Make use of household items: Use cat litter or old coffee grounds to dispose medications if other options arenot available. Mix your drugs with these household products, seal them in an airtight container andthrow it into the garbage. Call [facility]: [phone] to be sure your drugs can be disposed of in this way. Some medicines may require a different approach.4.Never flush your medications down the toilet. IF YOU HAVE BEEN PRESCRIBED AN OPIOIDS FOR PAIN If you have been prescribed an opioid (such as hydrocodone, oxycodone or morphine), it is critical to understand the possible side effects and risks of opioid pain medications. Even when taken as directed, opioids can have several side effects including: Tolerance, meaning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 - Notes that she has been taken to the ER previously, was told that it was anxiety/panic attack - Does not believe it was anxiety/panic attack. Did experience racing heart beat. - Notes that while in the hospital for hysterectomy, her blood pressure dropped - Concerned for POTS - Has scheduled an appointment with neurology, Karen Saul PA-C and cardiology, Dr. Gandhi Health Maintenance Due for Pneumococcal Vaccine (1 of 2- PCV) Due for Hep B Vaccine (1 of 3- 3 dose series) Due for Covid-19 Vaccine ( season) Labs reviewed. Past medical history, appointments, medications, allergies reviewed. REVIEW OF SYSTEMS General: Feels well, no weight changes, fevers or chills. HEENT: No sinus congestion, earache, sore throat. +dizziness, episodic Cardiac: No palpitations +chest pain, episodic Resp: No cough, wheeze, +shortness of breath, episodic GI: No reflux symptoms, food intolerance, bowel changes. : No urinary frequency, dysuria. MS: No pain or joint complaints. 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 disorder Depression (non-psychotic) Endometriosis 06/26/2005 per in [place], diagnosed at laparoscopy, bowel involvement Genital herpes GERD (gastroesophageal reflux disease) 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 Leg pain, bilateral 04/26/2021 PFO (patent foramen ovale) 09/26/2011 TIA (transient ischemic attack) 09/28/2012 Tobacco use disorder PHYSICAL EXAMINATION BP 102/67 Pulse 83 Ht 161.4 cm (5' 3.54) Wt 60.2 kg (132 lb 11.5 oz) LMP 12/19/2023 (Approximate) SpO2 99% BMI 23.11 kg/m General: Alert, well developed, well nourished, no distress, pleasant and cooperative. Heart: Regular rate and rhythm. Normal S1 and S2. No murmurs, rubs, or gallops. Lungs: Clear to auscultation bilaterally. No respiratory distress. No wheezes, rales, or rhonchi. Abdomen: Soft, non-tender, no distention. Extremities: Feet/ankles without edema, posterior tibial pulses full and symmetrical. Data Reviewed Assessment/Plan (R42) Light headed (primary encounter diagnosis) Comment: Likely due to hypotension. Plan: As below (R07.9) Chest pain, unspecified type Comment: Ongoing, episodic. Pt concerned for POTS Plan: Pt has appointments scheduled with neuro and cardiology in February (I95.9) Hypotension, unspecified hypotension type Comment: , episodic. Pt concerned for POTS as stated above Plan: Start midodrine (PROAMATINE) 2.5 mg tablet, Will check labs; BASIC METABOLIC PANEL, COMPLETE BLOOD COUNT, THYROID STIMULATING HORMONE Keep scheduled appointments with neuro and cardio. Encouraged her to monitor bp at home Requested Prescriptions Signed Prescriptions Disp Refills midodrine (PROAMATINE) 2.5 mg tablet 60 tablet 1 Sig: Take 1 tablet by mouth two times a day. For low blood pressure. RTO: 3 months Scribe Attestation: By signing my name below, ISaira, attest that this documentation has been prepared under the direction and in the presence of Jasbir Childress M.D. Electronically Signed: Eloisa Roy. December 19, 2023 11:12 AM Provider Attestation: IJm MD, personally performed the services described in this documentation. All medical record entries made by the scribe were at my direction and in my telephonic presence. I have reviewed the chart and discharge instructions (if applicable), and agree that the record reflects my personal performance and is accurate and complete. Electronically Signed: Jm Childress MD December 19, 2023 4:34 PM documented in this encounterC[facility] Telephone encounter Note * Telephone Encounter - Soraya Cohen LPN - 12/12/2023 3:32 PM EDT Received 12/11/2023 from [facility]. Placed in provider's inbox for review. Route to [place] for scanning. [facility]06-[facility] Miscellaneous Notes* Telephone Encounter - Soraya Cohen LPN - 12/12/2023 3:32 PM EDT Received 12/11/2023 from [facility]. Placed in provider's inbox for review. Route to [place] for scanning. documented in this encounterC[facility]06-14-[facility] Note Discharge Instructions Thank you for allowing [facility] to assist you with your healthcare needs. The following is importantdischarge information regarding your hospital visit. Your Care Team Denise Hadley MD Your Diagnosis Post-op pain S/P laparoscopic assisted vaginal hysterectomy (LAVH) What to do next Scheduled Follow-Up Appointments Appointment Type When With Where Contact Information StatusWH OV Post Op 12/14/2023 10:00 AM EDT DENISE HADLEY MD [facility] Confirmed Follow Up Appointments Follow Up with DENISE HADLEY MD When:12/14/2023 10:00 AM EDT Where:[address] [place] [address]- [phone] Additional Information: This is your post-op appointment. Follow-up as scheduled. Follow Up with FIOR HERNANDEZ, JM MORA When:12/19/2023 11:00 AM EDT Where:[address] [place] [address] [place] [address] [phone] Additional Information: This is your post-hospital appointment. Follow-up as scheduled. The Following Activity and Diet Have Been Ordered for You No qualifying data available. No qualifying data available. The Following Treatments Have Been Ordered for You Discharge Labs No qualifying data available. Discharge Radiology No qualifying data available. Other Therapies No qualifying data available. Post Acute Orders No qualifying data available. Allergies Tylenol with Codeine (Moderate) Migraine Bleach rash Paxil vomiting Medications Please ask your primary doctor or pharmacist before taking any other medication not listed, including over the counter drugs, herbal medications, vitamins and or supplements as they may interact withyour home medications. What How Much When Why Instructions Last Dose Unchanged acetaminophen-oxyCODONE (Percocet 5 mg-325 mg oral tablet) 1 tab(s) by mouth Every 6 hours as needed for Pain S/P laparoscopic assisted vaginal hysterectomy (LAVH) Post-op pain Duration: 7 Days Pickup at [facility]/pharmacy #[id number] Unchanged ibuprofen (ibuprofen 600 mg oral tablet) 1 tab(s) by mouth Every 6 hours as needed for for pain Duration: 10 Days Take with food or milk. Pickup at [facility]/pharmacy #[id number] Unchanged topiramate (topiramate 100 mg oral tablet) take 1 tablet by mouth at bedtime [id number] [address], [place] [phone] Please take this list to your next doctor s visit. Bring all medications you take, including over the counter medications, herbals and other supplements with you to your doctor s visit. Patients and families are reminded to discard old lists and to update any records with all medication providers or retail pharmacies. Medication Leaflets acetaminophen and oxycodone (a SEET a MIN oh fen and OX i KOE done) Endocet 10/325, Endocet 2.5/325, Endocet 5/325, Endocet 7.5/325, Nalocet, Percocet, Prolate What is the most important information I should know about acetaminophen and oxycodone? MISUSE OF OPIOID MEDICINE CAN CAUSE ADDICTION, OVERDOSE, OR . Keep the medication in a place where others cannot get to it. Taking opioid medicine during may cause life-threatening withdrawal symptoms in the . Fatal side effects can occur if you use opioid medicine with alcohol, or with other drugs that cause drowsiness or slow your breathing. Stop taking this medicine and call your doctor right away if you have skin redness or a rash that spreads and causes blistering and peeling. What is acetaminophen and oxycodone? Acetaminophen and oxycodone is a combination medicine used to relieve moderate to severe pain. Acetaminophen and oxycodone contains an opioide medicine and may be habit-forming. Acetaminophen and oxycodone may also be used for purposes not listed in this medication guide. What should I discuss with my healthcare provider before taking acetaminophen and oxycodone? You should not use this medicine if you are allergic to acetaminophen or oxycodone, or if you have: severe asthma or breathing problems; or a blockage in your stomach or intestines. Tell your doctor if you have ever had: breathing problems, sleep apnea; liver disease; a drug or alcohol addiction; kidney disease; a head injury or seizures; urination problems; or problems with your thyroid, pancreas, or gallbladder. If you use opioid medicine while you are , your baby could become dependent on the drug. This can cause life-threatening withdrawal symptoms in the baby after it is born. Babies born dependent on opioids may need medical treatment for several weeks. Ask a doctor before using opioid medicine if you are . Tell your doctor if you notice severe drowsiness or slow breathing in the nursing baby. How should I take acetaminophen and oxycodone? Follow all directions on your prescription label. Never take this medicine in larger amounts, or for longer than prescribed. An overdose can damage your liver or cause . Tell your doctor if you feel an increased urge to use more of this medicine. Never share opioid medicine with another person, especially someone with a history of drug abuse oraddiction. MISUSE CAN CAUSE ADDICTION, OVERDOSE, OR . Keep the medicine in a place where others cannot get to it. Selling or giving away opioid medicine is against the law. Measure liquid medicine carefully. Use the dosing syringe provided, or use a medicine dose-measuring device (not a kitchen spoon). If you need surgery or medical tests, tell the doctor ahead of time that you are using this medicine. You should not stop using this medicine suddenly. Follow your doctor's instructions about tapering your dose. Store at room temperature away from moisture and heat. Keep track of your medicine. You should be aware if anyone is using it improperly or without a prescription. Do not keep leftover opioid medication. Just one dose can cause in someone using this medicine accidentally or improperly. Ask your pharmacist where to locate a drug take-back disposal program.If there is no take-back program, flush the unused medicine down the toilet. What happens if I miss a dose? Since this medicine is used for pain, you are not likely to miss a dose. Skip any missed dose if itis almost time for your next dose. Do not use two doses at one time. What happens if I overdose? Seek emergency medical attention or call the Poison Help line at . An overdose of this medicine can be fatal, especially in a child or other person using the medicine without a prescription. Overdose symptoms may include nausea, vomiting, sweating, severe drowsiness, pinpoint pupils, slow breathing, or no breathing. Your doctor may recommend you get naloxone (a medicine to reverse an opioid overdose) and keep it with you at all times. A person caring for you can give the naloxone if you stop breathing or don't wake up. Your caregiver must still get emergency medical help and may need to perform CPR (cardiopulmonary resuscitation) on you while waiting for help to arrive. Anyone can buy naloxone from a pharmacy or local health department. Make sure any person caring foryou knows where you keep naloxone and how to use it. What should I avoid while taking acetaminophen and oxycodone? Avoid driving or operating machinery until you know how this medicine will affect you. Dizziness ordrowsiness can cause falls, accidents, or severe injuries. Do not drink alcohol. Dangerous side effects or could occur. Ask a doctor or pharmacist before using any other medicine that may contain acetaminophen (sometimes abbreviated as APAP). Taking certain medications together can lead to a fatal overdose. What are the possible side effects of acetaminophen and oxycodone? Get emergency medical help if you have signs of an allergic reaction: hives; difficulty breathing; swelling of your face, lips, tongue, or throat. Opioid medicine can slow or stop your breathing, and may occur. A person caring for you should give naloxone and/or seek emergency medical attention if you have slow breathing with long pauses,blue colored lips, or if you are hard to wake up. In rare cases, acetaminophen may cause a severe skin reaction that can be fatal. This could occur even if you have taken acetaminophen in the past and had no reaction. Stop taking this medicine and call your doctor right away if you have skin redness or a rash that spreads and causes blistering andpeeling. Call your doctor at once if you have: noisy breathing, sighing, shallow breathing, breathing that stops; a light-headed feeling, like you might pass out; weakness, tiredness, fever, unusual bruising or bleeding; confusion, unusual thoughts or behavior; problems with urination; liver problems--nausea, upper stomach pain, tiredness, loss of appetite, dark urine, sintia-colored stools, jaundice (yellowing of the skin or eyes); low cortisol levels-- nausea, vomiting, loss of appetite, dizziness, worsening tiredness or weakness; or high levels of serotonin in the body--agitation, hallucinations, fever, sweating, shivering, fast heart rate, muscle stiffness, twitching, loss of coordination, nausea, vomiting, diarrhea. Serious breathing problems may be more likely in older adults and in those who are debilitated or have wasting syndrome or chronic breathing disorders. Common side effects include: dizziness, drowsiness, feeling tired; feelings of extreme happiness or sadness; nausea, vomiting, stomach pain; constipation; or headache. This is not a complete list of side effects and others may occur. Call your doctor for medical advice about side effects. You may report side effects to FDA at 8-418-RSA-5994. What other drugs will affect acetaminophen and oxycodone? You may have breathing problems or withdrawal symptoms if you start or stop taking certain other medicines. Tell your doctor if you also use an antibiotic, antifungal medication, heart or blood pressure medication, seizure medication, or medicine to treat HIV or hepatitis C. Opioid medication can interact with many other drugs and cause dangerous side effects or . Be sure your doctor knows if you also use: cold or allergy medicines, bronchodilator asthma/COPD medication, or a diuretic ('water pill'); medicines for motion sickness, irritable bowel syndrome, or overactive bladder; other opioids--opioid pain medicine or prescription cough medicine; a sedative like Valium--diazepam, alprazolam, lorazepam, Xanax, Klonopin, Versed, and others; drugs that make you sleepy or slow your breathing--a sleeping pill, muscle relaxer, medicine to treat mood disorders or mental illness; drugs that affect serotonin levels in your body--a stimulant, or medicine for depression, Parkinson's disease, migraine headaches, serious infections, or nausea and vomiting. This list is not complete. Other drugs may affect acetaminophen and oxycodone, including prescription and [id number]-zczuttx medicines, vitamins, and herbal products. Not all possible interactions are listed here. Where can I get more information? Your doctor or pharmacist can provide more information about acetaminophen and oxycodone. Remember, keep this and all other medicines out of the reach of children, never share your medicines with others, and use this medication only for the indication prescribed. Every effort has been made to ensure that the information provided by [employer]. ('[employer]') is accurate, up-to-date, and complete, but no guarantee is made to that effect. Drug information contained herein may be time sensitive. [employer] information has been compiled for use by healthcare practitioners and consumers in the [place] and therefore [employer] does not warrant that uses outside of the [place] are appropriate, unless specifically indicated otherwise. [employer] drug information does not endorse drugs, diagnose patients or recommend therapy. [employer] drug information isan informational resource designed to assist licensed healthcare practitioners in caring for their p atients and/or to serve consumers viewing this service as a supplement to, and not a substitute for, the expertise, skill, knowledge and judgment of healthcare practitioners. The absence of a warningfor a given drug or drug combination in no way should be construed to indicate that the drug or drug combination is safe, effective or appropriate for any given patient. [employer] does not assume any responsibility for any aspect of healthcare administered with the aid of information [employer] provides. The information contained herein is not intended to cover all possible uses, directions, precautions, warnings, drug interactions, allergic reactions, or adverse effects. If you have questions about the drugs you are taking, check with your doctor, nurse or pharmacist. Copyright 6753-8165 [facility] [employer]. Version: 22.. Revision Date: 01/26/2023. Education Materials Smoking Tobacco Information, Adult Smoking tobacco can be harmful to your health. Tobacco contains a poisonous (toxic), colorless chemical called nicotine. Nicotine is addictive. It changes the brain and can make it hard to stop smoking. Tobacco also has other toxic chemicals that can hurt your body and raise your risk of many cancers. How can smoking tobacco affect me? Smoking tobacco puts you at risk for: Cancer. Smoking is most commonly associated with lung cancer, but can also lead to cancer in other parts of the body. Chronic obstructive pulmonary disease (COPD). This is a long-term lung condition that makes it hardto breathe. It also gets worse over time. High blood pressure (hypertension), heart disease, stroke, or heart attack. Lung infections, such as pneumonia. Cataracts. This is when the lenses in the eyes become clouded. Digestive problems. This may include peptic ulcers, heartburn, and gastroesophageal reflux disease (GERD). Oral health problems, such as gum disease and tooth loss. Loss of taste and smell. Smoking can affect your appearance by causing: Wrinkles. Yellow or stained teeth, fingers, and fingernails. Smoking tobacco can also affect your social life, because: It may be challenging to find places to smoke when away from home. Many workplaces, restaurants, hotels, and public places are tobacco-free. Smoking is expensive. This is due to the cost of tobacco and the long-term costs of treating healthproblems from smoking. Secondhand smoke may affect those around you. Secondhand smoke can cause lung cancer, breathing problems, and heart disease. Children of smokers have a higher risk for: ? Sudden infant syndrome (SIDS). ? Ear infections. ? Lung infections. If you currently smoke tobacco, quitting now can help you: Lead a longer and healthier life. Look, smell, breathe, and feel better over time. Save money. Protect others from the harms of secondhand smoke. What actions can I take to prevent health problems? Quit smoking Do not start smoking. Quit if you already do. Make a plan to quit smoking and commit to it. Look for programs to help you and ask your health care provider for recommendations and ideas. Set a date and write down all the reasons you want to quit. Let your friends and family know you are quitting so they can help and support you. Consider finding friends who also want to quit. It can be easier to quit with someone else, so that you can supporteach other. Talk with your health care provider about using nicotine replacement medicines to help you quit, such as gum, lozenges, patches, sprays, or pills. Do not replace cigarette smoking with electronic cigarettes, which are commonly called e-cigarettes. The safety of e-cigarettes is not known, and some may contain harmful chemicals. If you try to quit but return to smoking, stay positive. It is common to slip up when you first quit, so take it one day at a time. Be prepared for cravings. When you feel the urge to smoke, chew gum or suck on hard candy. Lifestyle Stay busy and take care of your body. Drink enough fluid to keep your urine pale yellow. Get plenty of exercise and eat a healthy diet. This can help prevent weight gain after quitting. Monitor your eating habits. Quitting smoking can cause you to have a larger appetite than when you smoke. Find ways to relax. Go out with friends or family to a movie or a restaurant where people do not smoke. Ask your health care provider about having regular tests (screenings) to check for cancer. This mayinclude blood tests, imaging tests, and other tests. Find ways to manage your stress, such as meditation, yoga, or exercise. Where to find support To get support to quit smoking, consider: Asking your health care provider for more information and resources. Taking classes to learn more about quitting smoking. Looking for local organizations that offer resources about quitting smoking. Joining a support group for people who want to quit smoking in your local community. Calling the smokefree.gov counselor helpline: Now ( ) Where to find more information You may find more information about quitting smoking from: HelpGuide.org: www.helpguide.org Smokefree.gov: smokefree.gov [place] [employer]: www.lung.org Contact a health care provider if you: Have problems breathing. Notice that your lips, nose, or fingers turn blue. Have chest pain. Are coughing up blood. Feel faint or you pass out. Have other health changes that cause you to worry. Summary Smoking tobacco can negatively affect your health, the health of those around you, your finances, and your social life. Do not start smoking. Quit if you already do. If you need help quitting, ask your health care provider. Think about joining a support group for people who want to quit smoking in your local community. There are many effective programs that will help you to quit this behavior. This information is not intended to replace advice given to you by your health care provider. Make sure you discuss any questions you have with your health care provider. Document Released: 06/27/2017 Document Revised: 08/01/2018 Document Reviewed: 06/27/2017 [employer] Patient Education 2020 [employer] Steps to Quit Smoking Smoking tobacco is the leading cause of preventable . It can affect almost every organ in the body. Smoking puts you and people around you at risk for many serious, long-lasting (chronic) diseases. Quitting smoking can be hard, but it is one of the best things that you can do for your health. It is never too late to quit. How do I get ready to quit? When you decide to quit smoking, make a plan to help you succeed. Before you quit: Pick a date to quit. Set a date within the next 2 weeks to give you time to prepare. Write down the reasons why you are quitting. Keep this list in places where you will see it often. Tell your family, friends, and co-workers that you are quitting. Their support is important. Talk with your doctor about the choices that may help you quit. Find out if your health insurance will pay for these treatments. Know the people, places, things, and activities that make you want to smoke (triggers). Avoid them. What first steps can I take to quit smoking? Throw away all cigarettes at home, at work, and in your car. Throw away the things that you use when you smoke, such as ashtrays and lighters. Clean your car. Make sure to empty the ashtray. Clean your home, including curtains and carpets. What can I do to help me quit smoking? Talk with your doctor about taking medicines and seeing a counselor at the same time. You are more likely to succeed when you do both. If you are or , talk with your doctor about counseling or other ways to quit smoking. Do not take medicine to help you quit smoking unless your doctor tells you to do so. To quit smoking: Quit right away Quit smoking totally, instead of slowly cutting back on how much you smoke over a period of time. Go to counseling. You are more likely to quit if you go to counseling sessions regularly. Take medicine You may take medicines to help you quit. Some medicines need a prescription, and some you can buy ovkk-ppi-sugjibx. Some medicines may contain a drug called nicotine to replace the nicotine in cigarettes. Medicines may: Help you to stop having the desire to smoke (cravings). Help to stop the problems that come when you stop smoking (withdrawal symptoms). Your doctor may ask you to use: Nicotine patches, gum, or lozenges. Nicotine inhalers or sprays. Non-nicotine medicine that is taken by mouth. Find resources Find resources and other ways to help you quit smoking and remain smoke-free after you quit. These resources are most helpful when you use them often. They include: Online chats with a counselor. Phone quitlines. Printed self-help materials. Support groups or group counseling. Text messaging programs. Mobile phone apps. Use apps on your mobile phone or tablet that can help you stick to your quit plan. There are many free apps for mobile phones and tablets as well as websites. Examples include QuitGuide from the [facility] and smokefree.gov What things can I do to make it easier to quit? Talk to your family and friends. Ask them to support and encourage you. Call a phone quitline (4-953-MAFLNOW), reach out to support groups, or work with a counselor. Ask people who smoke to not smoke around you. Avoid places that make you want to smoke, such as: ? Bars. ? Parties. ? Smoke-break areas at work. Spend time with people who do not smoke. Lower the stress in your life. Stress can make you want to smoke. Try these things to help your stress: ? Getting regular exercise. ? Doing deep-breathing exercises. ? Doing yoga. ? Meditating. ? Doing a body scan. To do this, close your eyes, focus on one area of your body at a time from head to toe. Notice which parts of your body are tense. Try to relax the muscles in those areas. How will I feel when I quit smoking? Day 1 to 3 weeks Within the first 24 hours, you may start to have some problems that come from quitting tobacco. These problems are very bad 2 3 days after you quit, but they do not often last for more than 2 3 weeks. You may get these symptoms: Mood swings. Feeling restless, nervous, angry, or annoyed. Trouble concentrating. Dizziness. Strong desire for high-sugar foods and nicotine. Weight gain. Trouble pooping (constipation). Feeling like you may vomit (nausea). Coughing or a sore throat. Changes in how the medicines that you take for other issues work in your body. Depression. Trouble sleeping (insomnia). Week 3 and afterward After the first 2 3 weeks of quitting, you may start to notice more positive results, such as: Better sense of smell and taste. Less coughing and sore throat. Slower heart rate. Lower blood pressure. Clearer skin. Better breathing. Fewer sick days. Quitting smoking can be hard. Do not give up if you fail the first time. Some people need to try a few times before they succeed. Do your best to stick to your quit plan, and talk with your doctor ifyou have any questions or concerns. Summary Smoking tobacco is the leading cause of preventable . Quitting smoking can be hard, but it is one of the best things that you can do for your health. When you decide to quit smoking, make a plan to help you succeed. Quit smoking right away, not slowly over a period of time. When you start quitting, seek help from your doctor, family, or friends. This information is not intended to replace advice given to you by your health care provider. Make sure you discuss any questions you have with your health care provider. Document Released: 04/08/2010 Document Revised: 08/30/2019 Document Reviewed: 08/31/2019 [employer] Patient Education 2019 [employer]. Coping with Quitting Smoking Quitting smoking is a physical and mental challenge. You will face cravings, withdrawal symptoms, and temptation. Before quitting, work with your health care provider to make a plan that can help youcope. Preparation can help you quit and keep you from giving in. How can I cope with cravings? Cravings usually last for 5 10 minutes. If you get through it, the craving will pass. Consider taking the following actions to help you cope with cravings: Keep your mouth busy: ? Chew sugar-free gum. ? Suck on hard candies or a straw. ? [place] your teeth. Keep your hands and body busy: ? Immediately change to a different activity when you feel a craving. ? Squeeze or play with a ball. ? Do an activity or a hobby, like making bead jewelry, practicing needlepoint, or working with wood. ? Mix up your normal routine. ? Take a short exercise break. Go for a quick walk or run up and down stairs. ? Spend time in public places where smoking is not allowed. Focus on doing something kind or helpful for someone else. Call a friend or family member to talk during a craving. Join a support group. Call a quit line, such as 2-413-NSBY-NOW. Talk with your health care provider about medicines that might help you cope with cravings and makequitting easier for you. How can I deal with withdrawal symptoms? Your body may experience negative effects as it tries to get used to not having nicotine in the system. These effects are called withdrawal symptoms. They may include: Feeling hungrier than normal. Trouble concentrating. Irritability. Trouble sleeping. Feeling depressed. Restlessness and agitation. Craving a cigarette. To manage withdrawal symptoms: Avoid places, people, and activities that trigger your cravings. Remember why you want to quit. Get plenty of sleep. Avoid coffee and other caffeinated drinks. These may worsen some of your symptoms. How can I handle social situations? Social situations can be difficult when you are quitting smoking, especially in the first few weeks. To manage this, you can: Avoid parties, bars, and other social situations where people might be smoking. Avoid alcohol. Leave right away if you have the urge to smoke. Explain to your family and friends that you are quitting smoking. Ask for understanding and support. Plan activities with friends or family where smoking is not an option. What are some ways I can cope with stress? Wanting to smoke may cause stress, and stress can make you want to smoke. Find ways to manage your stress. Relaxation techniques can help. For example: Breathe slowly and deeply, in through your nose and out through your mouth. Listen to soothing, relaxing music. Talk with a family member or friend about your stress. Light a candle. Soak in a bath or take a shower. Think about a peaceful place. What are some ways I can prevent weight gain? Be aware that many people gain weight after they quit smoking. However, not everyone does. To keep from gaining weight, have a plan in place before you quit and stick to the plan after you quit. Yourplan should include: Having healthy snacks. When you have a craving, it may help to: ? Eat plain popcorn, crunchy carrots, celery, or other cut vegetables. ? Chew sugar-free gum. Changing how you eat: ? Eat small portion sizes at meals. ? Eat 4 6 small meals throughout the day instead of 1 2 large meals a day. ? Be mindful when you eat. Do not watch television or do other things that might distract you as you eat. Exercising regularly: ? Make time to exercise each day. If you do not have time for a long workout, do short bouts of exercise for 5 10 minutes several times a day. ? Do some form of strengthening exercise, like weight lifting, and some form of aerobic exercise, like running or swimming. Drinking plenty of water or other low-calorie or no-calorie drinks. Drink 6 8 glasses of water daily, or as much as instructed by your health care provider. Summary Quitting smoking is a physical and mental challenge. You will face cravings, withdrawal symptoms, and temptation to smoke again. Preparation can help you as you go through these challenges. You can cope with cravings by keeping your mouth busy (such as by chewing gum), keeping your body and hands busy, and making calls to family, friends, or a helpline for people who want to quit smoking. You can cope with withdrawal symptoms by avoiding places where people smoke, avoiding drinks with caffeine, and getting plenty of rest. Ask your health care provider about the different ways to prevent weight gain, avoid stress, and handle social situations. This information is not intended to replace advice given to you by your health care provider. Make sure you discuss any questions you have with your health care provider. Document Released: 06/09/2017 Document Revised: 05/25/2018 Document Reviewed: 06/09/2017 [employer] Patient Education 2020 [employer]. Total Laparoscopic Hysterectomy, Care After This sheet gives you information about how to care for yourself after your procedure. Your health care provider may also give you more specific instructions. If you have problems or questions, contact your health care provider. What can I expect after the procedure? After the procedure, it is common to have: Pain and bruising around your incisions. A sore throat, if a breathing tube was used during surgery. Fatigue. Poor appetite. Less interest in sex. If your ovaries were also removed, it is also common to have symptoms of menopause such as hot flashes, night sweats, and lack of sleep (insomnia). Follow these instructions at home: Bathing Do not take baths, swim, or use a hot tub until your health care provider approves. You may need toonly take showers for 2 3 weeks. Keep your bandage (dressing) dry until your health care provider says it can be removed. Incision care Follow instructions from your health care provider about how to take care of your incisions. Make sure you: ? Wash your hands with soap and water before you change your dressing. If soap and water are not available, use hand shochet. ? Change your dressing as told by your health care provider. ? Leave stitches (sutures), skin glue, or adhesive strips in place. These skin closures may need to stay in place for 2 weeks or longer. If adhesive strip edges start to loosen and curl up, you may trim the loose edges. Do not remove adhesive strips completely unless your health care provider tells you to do that. Check your incision area every day for signs of infection. Check for: ? Redness, swelling, or pain. ? Fluid or blood. ? Warmth. ? Pus or a bad smell. Activity Get plenty of rest and sleep. Do not lift anything that is heavier than 10 lbs (4.5 kg) for one month after surgery, or as long as told by your health care provider. Do not drive or use heavy machinery while taking prescription pain medicine. Do not drive for 24 hours if you were given a medicine to help you relax (sedative). Return to your normal activities as told by your health care provider. Ask your health care provider what activities are safe for you. Lifestyle Do not use any products that contain nicotine or tobacco, such as cigarettes and e-cigarettes. These can delay healing. If you need help quitting, ask your health care provider. Do not drink alcohol until your health care provider approves. General instructions Do not douche, use tampons, or have sex for at least 6 weeks, or as told by your health care provider. Take mhaf-tuh-nypqozh and prescription medicines only as told by your health care provider. To monitor yourself for a fever, take your temperature at least once a day during recovery. If you struggle with physical or emotional changes after your procedure, speak with your health care provider or a therapist. To prevent or treat constipation while you are taking prescription pain medicine, your health care provider may recommend that you: ? Drink enough fluid to keep your urine clear or pale yellow. ? Take jars-wwp-ofwmwnl or prescription medicines. ? Eat foods that are high in fiber, such as fresh fruits and vegetables, whole grains, and beans. ? Limit foods that are high in fat and processed sugars, such as fried and sweet foods. Keep all follow-up visits as told by your health care provider. This is important. Contact a health care provider if: You have chills or a fever. You have redness, swelling, or pain around an incision. You have fluid or blood coming from an incision. Your incision feels warm to the touch. You have pus or a bad smell coming from an incision. An incision breaks open. You feel dizzy or light-headed. You have pain or bleeding when you urinate. You have diarrhea, nausea, or vomiting that does not go away. You have abnormal vaginal discharge. You have a rash. You have pain that does not get better with medicine. Get help right away if: You have a fever and your symptoms suddenly get worse. You have severe abdominal pain. You have chest pain. You have shortness of breath. You faint. You have pain, swelling, or redness on your leg. You have heavy vaginal bleeding with blood clots. Summary After the procedure it is common to have abdominal pain. Your provider will give you medication forthis. Do not take baths, swim, or use a hot tub until your health care provider approves. Do not lift anything that is heavier than 10 lbs (4.5 kg) for one month after surgery, or as long as told by your health care provider. Notify your provider if you have any signs or symptoms of infection after the procedure. This information is not intended to replace advice given to you by your health care provider. Make sure you discuss any questions you have with your health care provider. Document Released: 04/02/2014 Document Revised: 05/25/2018 Document Reviewed: 08/23/2017 [employer] Patient Education 2020 [employer]. Additional Information VACCINATE! IT SAVES LIVES! Members of the community who have not yet received the COVID-19 vaccine and would like to receive it can visit one of [facility] vaccine clinics. There are many vaccine clinic locations within the [facility]. For locations and available times, please visit https://gettheshot.coronavirus.[place].gov/. It is important to note that some COVID mobile vaccine clinics are held outdoors and may be canceled in rainy or stormy conditions. To learn more about pediatric vaccinations (ages 5-11), we invite you to visit the [facility] webpage. [email or web address].[email or web address]/[email or web address] [email or web address] learn more about the COVID-19 vaccine, we invite you to visit the CDC website for a list of frequently asked questions.https://www.cdc.gov/coronavirus/2019-ncov/vaccines/faq.html [employer] Patient Portal Access Instructions: Stay connected with your healthcare team and access your personal medical information anytime with the [facility] Patient Portal. Please follow the directions below to create your [employer] account: 1.Access the email account you provided upon registration to the hospital/physician office.2.Look for an invitation email from [facility].3.Open the email and access the invitation link: [facility]Invitation to [facility].4.Fill in the required rose to create your account. To access your account, visit [email or web address]. Click the blue button labeled Access Patient Portal and then log in with the username and password that you created in the steps above. You will be able to view your test results, lab results, a summary of your visits, upcoming appointments and more. There is also a convenient messaging option where you can send secure messages to your p rovider. In addition, you will have the ability to download any documents or summaries to your computer and/or send the information securely to a physician. Remember that your healthcare information is confidential, so carefully consider who you will allowto register on the [facility] Patient Portal for access to your information. You can also access the [facility] Patient Portal on the [place] [facility] germain. Simply click on Patient Portal and then log into your account. If you would like to receive a full copy of your medical records, please contact the [facility] Medical Records Department by calling [phone], Monday through Monday between 8 a.m. and 4:30 p.m. HOW TO SAFELY DISPOSE OF PRESCRIPTION MEDICATIONS Please use one of the following methods to safely dispose of your unused medications. 1.Use a drug disposal kit: the drug disposal pouch allows you to safely discard your old and unuseddrugs. Ask your nurse to give you one when you are discharged.2.Visit a local take-back location: Many local pharmacies and police departments have programs that collect old and unwanted prescriptiondrugs. Call your local pharmacy or go to http://bit.ly/8Y3Do4n to find one close to you.3.Make use of household items: Use cat litter or old coffee grounds to dispose medications if other options arenot available. Mix your drugs with these household products, seal them in an airtight container andthrow it into the garbage. Call [facility]: [phone] to be sure your drugs can be disposed of in this way. Some medicines may require a different approach.4.Never flush your medications down the toilet. IF YOU HAVE BEEN PRESCRIBED AN OPIOID FOR PAIN If you have been prescribed an opioid (such as hydrocodone, oxycodone or morphine), it is critical to understand the possible side effects and risks of opioid pain medications. Even when taken as directed, opioids can have several side effects including: Tolerance, meaning you might need to take more of a medication for the same pain relief. Nausea, vomiting and/or constipation. Sleepiness, dizziness, dry mouth, confusion, depression or itching. Physical dependence, meaning you have withdrawal symptoms when a medication is stopped, can develop within a few days. KNOW YOUR RESPONSIBILITIES It is important to know exactly how much and how often to take the opioid pain medications you are prescribed. Never take opioids in higher amounts or more often than prescribed. Do not combine opioids with alcohol or other drugs that cause drowsiness, such as benzodiazepines, also known as benzos, including diazepam and alprazolam, muscle relaxants or sleep aids. Never sell or share prescription opioids. This is illegal. Store opioids in a secure place and out of reach of others (including children, family, friends and visitors). The last page of this document has been signed and retained as a CHART COPY. Signatures Patient Education Materials Smoking Tobacco Information, Adult Steps to Quit Smoking, Wdnn-mg-Kwep Coping with Quitting Smoking Total Laparoscopic Hysterectomy, Care After Medication Leaflets acetaminophen and oxycodone My discharge plan and instructions have been reviewed and explained to me and IMAHENDRA AMBERLY M understand my current condition and have read and understand these discharge instructions. I have received a written copy of the plan/instructions. If I have questions, I am aware that I should contactmy doctor. Patient/Kiln Drawer Signature: Date/Time: Relationship to Patient: Witness Name/Signature: Date/Time: [facility]06-14-2024 Hospital Discharge instructions Patient Education 12/08/2023 07:30:52 Smoking Tobacco Information, Adult Smoking Tobacco Information, Adult Smoking tobacco can be harmful to your health. Tobacco contains a poisonous (toxic), colorless chemical called nicotine. Nicotine is addictive. It changes the brain and can make it hard to stop smoking. Tobacco also has other toxic chemicals that can hurt your body and raise your risk of many cancers. How can smoking tobacco affect me? Smoking tobacco puts you at risk for: Cancer. Smoking is most commonly associated with lung cancer, but can also lead to cancer in other parts of the body. Chronic obstructive pulmonary disease (COPD). This is a long-term lung condition that makes it hardto breathe. It also gets worse over time. High blood pressure (hypertension), heart disease, stroke, or heart attack. Lung infections, such as pneumonia. Cataracts. This is when the lenses in the eyes become clouded. Digestive problems. This may include peptic ulcers, heartburn, and gastroesophageal reflux disease (GERD). Oral health problems, such as gum disease and tooth loss. Loss of taste and smell. Smoking can affect your appearance by causing: Wrinkles. Yellow or stained teeth, fingers, and fingernails. Smoking tobacco can also affect your social life, because: It may be challenging to find places to smoke when away from home. Many workplaces, restaurants, hotels, and public places are tobacco-free. Smoking is expensive. This is due to the cost of tobacco and the long-term costs of treating healthproblems from smoking. Secondhand smoke may affect those around you. Secondhand smoke can cause lung cancer, breathing problems, and heart disease. Children of smokers have a higher risk for: ?Sudden syndrome (SIDS). ?Ear infections. ?Lung infections. If you currently smoke tobacco, quitting now can help you: Lead a longer and healthier life. Look, smell, breathe, and feel better over time. Save money. Protect others from the harms of secondhand smoke. What actions can I take to prevent health problems? Quit smoking Do not start smoking. Quit if you already do. Make a plan to quit smoking and commit to it. Look for programs to help you and ask your health care provider for recommendations and ideas. Set a date and write down all the reasons you want to quit. Let your friends and family know you are quitting so they can help and support you. Consider finding friends who also want to quit. It can be easier to quit with someone else, so that you can supporteach other. Talk with your health care provider about using nicotine replacement medicines to help you quit, such as gum, lozenges, patches, sprays, or pills. Do not replace cigarette smoking with electronic cigarettes, which are commonly called e-cigarettes. The safety of e-cigarettes is not known, and some may contain harmful chemicals. If you try to quit but return to smoking, stay positive. It is common to slip up when you first quit, so take it one day at a time. Be prepared for cravings. When you feel the urge to smoke, chew gum or suck on hard candy. Lifestyle Stay busy and take care of your body. Drink enough fluid to keep your urine pale yellow. Get plenty of exercise and eat a healthy diet. This can help prevent weight gain after quitting. Monitor your eating habits. Quitting smoking can cause you to have a larger appetite than when you smoke. Find ways to relax. Go out with friends or family to a movie or a restaurant where people do not smoke. Ask your health care provider about having regular tests (screenings) to check for cancer. This mayinclude blood tests, imaging tests, and other tests. Find ways to manage your stress, such as meditation, yoga, or exercise. Where to find support To get support to quit smoking, consider: Asking your health care provider for more information and resources. Taking classes to learn more about quitting smoking. Looking for local organizations that offer resources about quitting smoking. Joining a support group for people who want to quit smoking in your local community. Calling the smokefree.gov counselor helpline: 4-543-Rvec-Now ( ) Where to find more information You may find more information about quitting smoking from: HelpGuide.org: www.helpguide.org Smokefree.gov: smokefree.gov [place] [employer]: www.lung.org Contact a health care provider if you: Have problems breathing. Notice that your lips, nose, or fingers turn blue. Have chest pain. Are coughing up blood. Feel faint or you pass out. Have other health changes that cause you to worry. Summary Smoking tobacco can negatively affect your health, the health of those around you, your finances, and your social life. Do not start smoking. Quit if you already do. If you need help quitting, ask your health care provider. Think about joining a support group for people who want to quit smoking in your local community. There are many effective programs that will help you to quit this behavior. This information is not intended to replace advice given to you by your health care provider. Make sure you discuss any questions you have with your health care provider. Document Released: 06/27/2017 Document Revised: 08/01/2018 Document Reviewed: 06/27/2017 [employer] Patient Education 2020 [employer]. 12/08/2023 07:30:38 Steps to Quit Smoking, [id number] Steps to Quit Smoking Smoking tobacco is the leading cause of preventable . It can affect almost every organ in the body. Smoking puts you and people around you at risk for many serious, long-lasting (chronic) diseases. Quitting smoking can be hard, but it is one of the best things that you can do for your health. It is never too late to quit. How do I get ready to quit? When you decide to quit smoking, make a plan to help you succeed. Before you quit: Pick a date to quit. Set a date within the next 2 weeks to give you time to prepare. Write down the reasons why you are quitting. Keep this list in places where you will see it often. Tell your family, friends, and co-workers that you are quitting. Their support is important. Talk with your doctor about the choices that may help you quit. Find out if your health insurance will pay for these treatments. Know the people, places, things, and activities that make you want to smoke (triggers). Avoid them. What first steps can I take to quit smoking? Throw away all cigarettes at home, at work, and in your car. Throw away the things that you use when you smoke, such as ashtrays and lighters. Clean your car. Make sure to empty the ashtray. Clean your home, including curtains and carpets. What can I do to help me quit smoking? Talk with your doctor about taking medicines and seeing a counselor at the same time. You are more likely to succeed when you do both. If you are or , talk with your doctor about counseling or other ways to quit smoking. Do not take medicine to help you quit smoking unless your doctor tells you to do so. To quit smoking: Quit right away Quit smoking totally, instead of slowly cutting back on how much you smoke over a period of time. Go to counseling. You are more likely to quit if you go to counseling sessions regularly. Take medicine You may take medicines to help you quit. Some medicines need a prescription, and some you can buy [id number]. Some medicines may contain a drug called nicotine to replace the nicotine in cigarettes. Medicines may: Help you to stop having the desire to smoke (cravings). Help to stop the problems that come when you stop smoking (withdrawal symptoms). Your doctor may ask you to use: Nicotine patches, gum, or lozenges. Nicotine inhalers or sprays. Non-nicotine medicine that is taken by mouth. Find resources Find resources and other ways to help you quit smoking and remain smoke-free after you quit. These resources are most helpful when you use them often. They include: Online chats with a counselor. Phone quitlines. Printed self-help materials. Support groups or group counseling. Text messaging programs. Mobile phone apps. Use apps on your mobile phone or tablet that can help you stick to your quit plan. There are many free apps for mobile phones and tablets as well as websites. Examples include QuitGuide from the CDC and smokefree.gov What things can I do to make it easier to quit? Talk to your family and friends. Ask them to support and encourage you. Call a phone quitline (3-216-ZSIZNOW), reach out to support groups, or work with a counselor. Ask people who smoke to not smoke around you. Avoid places that make you want to smoke, such as: ?Bars. ?Parties. ?Smoke-break areas at work. Spend time with people who do not smoke. Lower the stress in your life. Stress can make you want to smoke. Try these things to help your stress: ?Getting regular exercise. ?Doing deep-breathing exercises. ?Doing yoga. ?Meditating. ?Doing a body scan. To do this, close your eyes, focus on one area of your body at a time from headto toe. Notice which parts of your body are tense. Try to relax the muscles in those areas. How will I feel when I quit smoking? Day 1 to 3 weeks Within the first 24 hours, you may start to have some problems that come from quitting tobacco. These problems are very bad 2 3 days after you quit, but they do not often last for more than 2 3 weeks. You may get these symptoms: Mood swings. Feeling restless, nervous, angry, or annoyed. Trouble concentrating. Dizziness. Strong desire for high-sugar foods and nicotine. Weight gain. Trouble pooping (constipation). Feeling like you may vomit (nausea). Coughing or a sore throat. Changes in how the medicines that you take for other issues work in your body. Depression. Trouble sleeping (insomnia). Week 3 and afterward After the first 2 3 weeks of quitting, you may start to notice more positive results, such as: Better sense of smell and taste. Less coughing and sore throat. Slower heart rate. Lower blood pressure. Clearer skin. Better breathing. Fewer sick days. Quitting smoking can be hard. Do not give up if you fail the first time. Some people need to try a few times before they succeed. Do your best to stick to your quit plan, and talk with your doctor ifyou have any questions or concerns. Summary Smoking tobacco is the leading cause of preventable . Quitting smoking can be hard, but it is one of the best things that you can do for your health. When you decide to quit smoking, make a plan to help you succeed. Quit smoking right away, not slowly over a period of time. When you start quitting, seek help from your doctor, family, or friends. This information is not intended to replace advice given to you by your health care provider. Make sure you discuss any questions you have with your health care provider. Document Released: 04/08/2010 Document Revised: 08/30/2019 Document Reviewed: 08/31/2019 [employer] Patient Education 2020 [employer]. 12/08/2023 07:30:31 Coping with Quitting Smoking Coping with Quitting Smoking Quitting smoking is a physical and mental challenge. You will face cravings, withdrawal symptoms, and temptation. Before quitting, work with your health care provider to make a plan that can help youcope. Preparation can help you quit and keep you from giving in. How can I cope with cravings? Cravings usually last for 5 10 minutes. If you get through it, the craving will pass. Consider taking the following actions to help you cope with cravings: Keep your mouth busy: ?Chew sugar-free gum. ?Suck on hard candies or a straw. ?[place] your teeth. Keep your hands and body busy: ?Immediately change to a different activity when you feel a craving. ?Squeeze or play with a ball. ?Do an activity or a hobby, like making bead jewelry, practicing needlepoint, or working with wood. ?Mix up your normal routine. ?Take a short exercise break. Go for a quick walk or run up and down stairs. ?Spend time in public places where smoking is not allowed. Focus on doing something kind or helpful for someone else. Call a friend or family member to talk during a craving. Join a support group. Call a quit line, such as EdufiiNOW. Talk with your health care provider about medicines that might help you cope with cravings and makequitting easier for you. How can I deal with withdrawal symptoms? Your body may experience negative effects as it tries to get used to not having nicotine in the system. These effects are called withdrawal symptoms. They may include: Feeling hungrier than normal. Trouble concentrating. Irritability. Trouble sleeping. Feeling depressed. Restlessness and agitation. Craving a cigarette. To manage withdrawal symptoms: Avoid places, people, and activities that trigger your cravings. Remember why you want to quit. Get plenty of sleep. Avoid coffee and other caffeinated drinks. These may worsen some of your symptoms. How can I handle social situations? Social situations can be difficult when you are quitting smoking, especially in the first few weeks. To manage this, you can: Avoid parties, bars, and other social situations where people might be smoking. Avoid alcohol. Leave right away if you have the urge to smoke. Explain to your family and friends that you are quitting smoking. Ask for understanding and support. Plan activities with friends or family where smoking is not an option. What are some ways I can cope with stress? Wanting to smoke may cause stress, and stress can make you want to smoke. Find ways to manage your stress. Relaxation techniques can help. For example: Breathe slowly and deeply, in through your nose and out through your mouth. Listen to soothing, relaxing music. Talk with a family member or friend about your stress. Light a candle. Soak in a bath or take a shower. Think about a peaceful place. What are some ways I can prevent weight gain? Be aware that many people gain weight after they quit smoking. However, not everyone does. To keep from gaining weight, have a plan in place before you quit and stick to the plan after you quit. Yourplan should include: Having healthy snacks. When you have a craving, it may help to: ?Eat plain popcorn, crunchy carrots, celery, or other cut vegetables. ?Chew sugar-free gum. Changing how you eat: ?Eat small portion sizes at meals. ?Eat 4 6 small meals throughout the day instead of 1 2 large meals a day. ?Be mindful when you eat. Do not watch television or do other things that might distract you as youeat. Exercising regularly: ?Make time to exercise each day. If you do not have time for a long workout, do short bouts of exercise for 5 10 minutes several times a day. ?Do some form of strengthening exercise, like weight lifting, and some form of aerobic exercise, like running or swimming. Drinking plenty of water or other low-calorie or no-calorie drinks. Drink 6 8 glasses of water daily, or as much as instructed by your health care provider. Summary Quitting smoking is a physical and mental challenge. You will face cravings, withdrawal symptoms, and temptation to smoke again. Preparation can help you as you go through these challenges. You can cope with cravings by keeping your mouth busy (such as by chewing gum), keeping your body and hands busy, and making calls to family, friends, or a helpline for people who want to quit smoking. You can cope with withdrawal symptoms by avoiding places where people smoke, avoiding drinks with caffeine, and getting plenty of rest. Ask your health care provider about the different ways to prevent weight gain, avoid stress, and handle social situations. This information is not intended to replace advice given to you by your health care provider. Make sure you discuss any questions you have with your health care provider. Document Released: 06/09/2017 Document Revised: 05/25/2018 Document Reviewed: 06/09/2017 [employer] Patient Education 2020 [employer]. 12/07/2023 08:36:11 Total Laparoscopic Hysterectomy, Care After Total Laparoscopic Hysterectomy, Care After This sheet gives you information about how to care for yourself after your procedure. Your health care provider may also give you more specific instructions. If you have problems or questions, contact your health care provider. What can I expect after the procedure? After the procedure, it is common to have: Pain and bruising around your incisions. A sore throat, if a breathing tube was used during surgery. Fatigue. Poor appetite. Less interest in sex. If your ovaries were also removed, it is also common to have symptoms of menopause such as hot flashes, night sweats, and lack of sleep (insomnia). Follow these instructions at home: Bathing Do not take baths, swim, or use a hot tub until your health care provider approves. You may need toonly take showers for 2 3 weeks. Keep your bandage (dressing) dry until your health care provider says it can be removed. Incision care Follow instructions from your health care provider about how to take care of your incisions. Make sure you: ?Wash your hands with soap and water before you change your dressing. If soap and water are not available, use hand shochet. ?Change your dressing as told by your health care provider. ?Leave stitches (sutures), skin glue, or adhesive strips in place. These skin closures may need to stay in place for 2 weeks or longer. If adhesive strip edges start to loosen and curl up, you may trim the loose edges. Do not remove adhesive strips completely unless your health care provider tells you to do that. Check your incision area every day for signs of infection. Check for: ?Redness, swelling, or pain. ?Fluid or blood. ?Warmth. ?Pus or a bad smell. Activity Get plenty of rest and sleep. Do not lift anything that is heavier than 10 lbs (4.5 kg) for one month after surgery, or as long as told by your health care provider. Do not drive or use heavy machinery while taking prescription pain medicine. Do not drive for 24 hours if you were given a medicine to help you relax (sedative). Return to your normal activities as told by your health care provider. Ask your health care provider what activities are safe for you. Lifestyle Do not use any products that contain nicotine or tobacco, such as cigarettes and e-cigarettes. These can delay healing. If you need help quitting, ask your health care provider. Do not drink alcohol until your health care provider approves. General instructions Do not douche, use tampons, or have sex for at least 6 weeks, or as told by your health care provider. Take anfy-llb-lelkfbl and prescription medicines only as told by your health care provider. To monitor yourself for a fever, take your temperature at least once a day during recovery. If you struggle with physical or emotional changes after your procedure, speak with your health care provider or a therapist. To prevent or treat constipation while you are taking prescription pain medicine, your health care provider may recommend that you: ?Drink enough fluid to keep your urine clear or pale yellow. ?Take lkwi-wvg-cadpruz or prescription medicines. ?Eat foods that are high in fiber, such as fresh fruits and vegetables, whole grains, and beans. ?Limit foods that are high in fat and processed sugars, such as fried and sweet foods. Keep all follow-up visits as told by your health care provider. This is important. Contact a health care provider if: You have chills or a fever. You have redness, swelling, or pain around an incision. You have fluid or blood coming from an incision. Your incision feels warm to the touch. You have pus or a bad smell coming from an incision. An incision breaks open. You feel dizzy or light-headed. You have pain or bleeding when you urinate. You have diarrhea, nausea, or vomiting that does not go away. You have abnormal vaginal discharge. You have a rash. You have pain that does not get better with medicine. Get help right away if: You have a fever and your symptoms suddenly get worse. You have severe abdominal pain. You have chest pain. You have shortness of breath. You faint. You have pain, swelling, or redness on your leg. You have heavy vaginal bleeding with blood clots. Summary After the procedure it is common to have abdominal pain. Your provider will give you medication forthis. Do not take baths, swim, or use a hot tub until your health care provider approves. Do not lift anything that is heavier than 10 lbs (4.5 kg) for one month after surgery, or as long as told by your health care provider. Notify your provider if you have any signs or symptoms of infection after the procedure. This information is not intended to replace advice given to you by your health care provider. Make sure you discuss any questions you have with your health care provider. Document Released: 04/02/2014 Document Revised: 05/25/2018 Document Reviewed: 08/23/2017 [employer] Patient Education 2020 [employer]. Follow Up Care 10/10/2023 13:32:01 With:DENISE HADLEY MD Address: [address] [facility] [place] [address]- [phone] When:12/14/2023 10:00:00 Comments:This is your post-op appointment. Follow-up as scheduled. With:JM CHILDRESS MD Address: [address] [place] [address] [place] [address]- [phone] When:12/19/2023 11:00:00 Comments:This is your post-hospital appointment. Follow-up as scheduled. [facility] 06-14-2024 Note Postop day #1 progress note: Ambulate is a little bit dizzy this morning. She is up and ambulating. Voiding on her own. Some nausea. Is able to tolerate p.o. Reports no vaginal bleeding. Objective: Afebrile vital signs stable. Hematocrit 34.7 today which is reasonable considering hydration after surgery and correlates with minimal blood loss during surgery. Abdomen is soft nontender.Incision dressings are dry with no erythema. No vaginal bleeding. No lower extremity edema. Impression/plan: Doing well on postoperative day #1 status post laparoscopic- assisted vaginal hysterectomy. Cleared for discharge home today. Discharge instructions and warnings were given. Prescriptions were sent to her pharmacy. Instructed to make an appointment to see me next week for postop visit. Digitally Signed by DENISE HADLEY MD on 12/08/2023 07:10 AM [facility]06-13-2024 Anesthesiology Consult note Patient: DEANDRA MCCRAY Age: 38 years Sex: Female : 1985 Associated Diagnoses: None Author: WILLY MALHOTRA [employer] Assessment Postanesthesia assessment Vitals: Vital signs from flowsheet : Vital Signs 12/07/2023 16:31 EDT Temperature Oral 36.7 DegC Heart Rate Monitored 73 bpm Respiratory Rate 16 br/min Systolic Blood Pressure Non-Invasive 111 mmHg Diastolic Blood Pressure Non-Invasive 70 mmHg 12/07/2023 16:03 EDT Heart Rate Monitored 68 bpm Respiratory Rate 16 br/min Systolic Blood Pressure Non-Invasive 112 mmHg Diastolic Blood Pressure Non-Invasive 67 mmHg 12/07/2023 15:45 EDT Heart Rate Monitored 65 bpm Heart Rate Monitored 66 bpm Respiratory Rate 15 br/min Respiratory Rate 13 br/min LOW Systolic Blood Pressure Non-Invasive 101 mmHg Systolic Blood Pressure Non-Invasive 110 mmHg Diastolic Blood Pressure Non-Invasive 64 mmHg Diastolic Blood Pressure Non-Invasive 63 mmHg 12/07/2023 15:30 EDT Heart Rate Monitored 63 bpm Respiratory Rate 12 br/min LOW Systolic Blood Pressure Non-Invasive 109 mmHg Diastolic Blood Pressure Non-Invasive 65 mmHg 12/07/2023 15:19 EDT Heart Rate Monitored 70 bpm Respiratory Rate 15 br/min Systolic Blood Pressure Non-Invasive 110 mmHg Diastolic Blood Pressure Non-Invasive 62 mmHg 12/07/2023 15:13 EDT Heart Rate Monitored 73 bpm Respiratory Rate 14 br/min Systolic Blood Pressure Non-Invasive 98 mmHg Diastolic Blood Pressure Non-Invasive 72 mmHg 12/07/2023 15:08 EDT Heart Rate Monitored 87 bpm Respiratory Rate 16 br/min Systolic Blood Pressure Non-Invasive 104 mmHg Diastolic Blood Pressure Non-Invasive 64 mmHg 12/07/2023 15:02 EDT Temperature Temporal Artery 36.3 DegC Heart Rate Monitored 86 bpm Respiratory Rate 13 br/min LOW Systolic Blood Pressure Non-Invasive 105 mmHg Diastolic Blood Pressure Non-Invasive 57 mmHg LOW 12/07/2023 14:55 EDT Heart Rate Monitored 68 bpm bpm Respiratory Rate - Anes 11 br/min br/min Systolic Blood Pressure Non-Invasive 104 mmHg mmHg Diastolic Blood Pressure Non-Invasive 73 mmHg mmHg 12/07/2023 14:50 EDT Heart Rate Monitored 70 bpm bpm Respiratory Rate - Anes 14 br/min br/min Systolic Blood Pressure Non-Invasive 92 mmHg mmHg Diastolic Blood Pressure Non-Invasive 55 mmHg mmHg 12/07/2023 14:45 EDT Temperature (Route Not Specified) 36 DegC DegC Heart Rate Monitored 54 bpm bpm Respiratory Rate - Anes 10 br/min br/min Systolic Blood Pressure Non-Invasive 98 mmHg mmHg Diastolic Blood Pressure Non-Invasive 72 mmHg mmHg 12/07/2023 14:40 EDT Heart Rate Monitored 56 bpm bpm Respiratory Rate - Anes 10 br/min br/min Systolic Blood Pressure Non-Invasive 86 mmHg mmHg Diastolic Blood Pressure Non-Invasive 55 mmHg mmHg 12/07/2023 14:35 EDT Heart Rate Monitored 58 bpm bpm Respiratory Rate - Anes 10 br/min br/min Systolic Blood Pressure Non-Invasive 86 mmHg mmHg Diastolic Blood Pressure Non-Invasive 54 mmHg mmHg 12/07/2023 14:30 EDT Heart Rate Monitored 61 bpm bpm Respiratory Rate - Anes 12 br/min br/min Systolic Blood Pressure Non-Invasive 90 mmHg mmHg Diastolic Blood Pressure Non-Invasive 58 mmHg mmHg 12/07/2023 14:25 EDT Heart Rate Monitored 64 bpm bpm Respiratory Rate - Anes 14 br/min br/min Systolic Blood Pressure Non-Invasive 104 mmHg mmHg Diastolic Blood Pressure Non-Invasive 68 mmHg mmHg 12/07/2023 14:20 EDT Heart Rate Monitored 70 bpm bpm Respiratory Rate - Anes 14 br/min br/min Systolic Blood Pressure Non-Invasive 98 mmHg mmHg Diastolic Blood Pressure Non-Invasive 63 mmHg mmHg 12/07/2023 14:15 EDT Temperature (Route Not Specified) 36 DegC DegC Heart Rate Monitored 71 bpm bpm Respiratory Rate - Anes 14 br/min br/min Systolic Blood Pressure Non-Invasive 92 mmHg mmHg Diastolic Blood Pressure Non-Invasive 60 mmHg mmHg 12/07/2023 14:10 EDT Heart Rate Monitored 72 bpm bpm Respiratory Rate - Anes 10 br/min br/min Systolic Blood Pressure Non-Invasive 96 mmHg mmHg Diastolic Blood Pressure Non-Invasive 66 mmHg mmHg 12/07/2023 14:05 EDT Heart Rate Monitored 69 bpm bpm Respiratory Rate - Anes 12 br/min br/min Systolic Blood Pressure Non-Invasive 98 mmHg mmHg Diastolic Blood Pressure Non-Invasive 66 mmHg mmHg 12/07/2023 14:00 EDT Temperature (Route Not Specified) 36 DegC DegC Heart Rate Monitored 74 bpm bpm Respiratory Rate - Anes 9 br/min br/min Systolic Blood Pressure Non-Invasive 99 mmHg mmHg Diastolic Blood Pressure Non-Invasive 69 mmHg mmHg 12/07/2023 13:55 EDT Heart Rate Monitored 61 bpm bpm Respiratory Rate - Anes 8 br/min br/min Systolic Blood Pressure Non-Invasive 98 mmHg mmHg Diastolic Blood Pressure Non-Invasive 75 mmHg mmHg 12/07/2023 13:50 EDT Heart Rate Monitored 64 bpm bpm Respiratory Rate - Anes 8 br/min br/min Systolic Blood Pressure Non-Invasive 97 mmHg mmHg Diastolic Blood Pressure Non-Invasive 71 mmHg mmHg 12/07/2023 13:45 EDT Temperature (Route Not Specified) 36 DegC DegC Heart Rate Monitored 85 bpm bpm Respiratory Rate - Anes 8 br/min br/min Systolic Blood Pressure Non-Invasive 104 mmHg mmHg Diastolic Blood Pressure Non-Invasive 70 mmHg mmHg 12/07/2023 13:40 EDT Heart Rate Monitored 75 bpm bpm Respiratory Rate - Anes 8 br/min br/min Systolic Blood Pressure Non-Invasive 87 mmHg mmHg Diastolic Blood Pressure Non-Invasive 47 mmHg mmHg 12/07/2023 13:36 EDT Systolic Blood Pressure Non-Invasive 89 mmHg mmHg Diastolic Blood Pressure Non-Invasive 52 mmHg mmHg 12/07/2023 13:35 EDT Heart Rate Monitored 80 bpm bpm Respiratory Rate - Anes 8 br/min br/min 12/07/2023 13:34 EDT Systolic Blood Pressure Non-Invasive 94 mmHg mmHg Diastolic Blood Pressure Non-Invasive 47 mmHg mmHg 12/07/2023 13:30 EDT Temperature (Route Not Specified) 36 DegC DegC Heart Rate Monitored 82 bpm bpm Respiratory Rate - Anes 8 br/min br/min Systolic Blood Pressure Non-Invasive 76 mmHg mmHg Diastolic Blood Pressure Non-Invasive 43 mmHg mmHg 12/07/2023 13:25 EDT Heart Rate Monitored 94 bpm bpm Respiratory Rate - Anes 13 br/min br/min Systolic Blood Pressure Non-Invasive 105 mmHg mmHg Diastolic Blood Pressure Non-Invasive 70 mmHg mmHg 12/07/2023 13:20 EDT Heart Rate Monitored 81 bpm bpm Respiratory Rate - Anes 0 br/min br/min Systolic Blood Pressure Non-Invasive 94 mmHg mmHg Diastolic Blood Pressure Non-Invasive 59 mmHg mmHg 12/07/2023 13:17 EDT Systolic Blood Pressure Non-Invasive 108 mmHg mmHg Diastolic Blood Pressure Non-Invasive 64 mmHg mmHg 12/07/2023 11:32 EDT Temperature Temporal Artery 36.8 DegC Peripheral Pulse Rate 85 bpm Respiratory Rate 18 br/min Systolic Blood Pressure Non-Invasive 108 mmHg Diastolic Blood Pressure Non-Invasive 57 mmHg LOW , Measurements from flowsheet . Mental status: alert & oriented x 4. Respiratory function: respirations are non-labored. Respiratory support: none. CV function: Normal rate. Cardiovascular support: none. Pain. Nausea status: see nursing documentation of medications. Postoperative hydration status: within normal limits. Digitally Signed by WILLY MALHOTRA APRN-ROTARY DRILLER on 12/07/2023 05:23 PM [facility]06-13-2024 Evaluation + Plan noteExtracted from: Title:Clinical Document Author:DNEISE HADLEY MD Date:12/07/23 [facility] ADMISSION HISTORY AN D PHYSICIAL CHIEF COMPLAINT: Deandra is a 38-year-old with a long history of menorrhagia and dysmenorrhea. She had an attempted endometrial ablation a few months ago which was unsuccessful due to uterine perforation. She continues to experience clotting with her periods and severe dysmenorrhea which causes her to miss work. HISTORY OF PRESENT ILLNESS: Longstanding dysmenorrhea and menorrhagia. Failed endometrial ablation. She generally has regular monthly menses. REVIEW OF SYSTEMS: Other than dysmenorrhea and menorrhagia her review of systems is relatively uncomplicated except that she had a recent admission to the emergency room secondary to chest pain and numbness in one of her arms. Workup was negative for cardiovascular issues. She also has a history of irritable bowel syndrome and migraine headaches. ACTIVE PROBLEMS: (19) Anxiety (15932818) Concussion (2772200966) Dysmenorrhea (372610596) Fatigue (925054454) GERD (gastroesophageal reflux disease) (628063222) Headache (88670937) IBS (irritable bowel syndrome) (66372219) Leg pain, bilateral (130938815) Menorrhagia with regular cycle (7268015263) Migraines (28818601) Neuropathy (0935676467) Patent foramen ovale (406873312) Pelvic pain (068505547) Postop check (901064523) Right ovarian cyst (272314357) Status post laparoscopy (1743130300) TIA (transient ischemic attack) (366825531) Tobacco use (2196310488) Toe pain (300821879) MEDICATIONS: Active Inpt Meds: cefOXitin (Mefoxin) Start: 12/07/23 6:00:00 EDT, Dose = 2 gram(s), IV Piggyback, PREOP pharm, 18 hour(s), Stop: 12/07/23 23:59:00 EDT, Rate: 200 mL/hr, Infuse over: 30 minute(s), 0 Active PRN Meds: None One Time Meds: None Active IV Meds: Lactated Ringers Infusion 1000 mL (LR 1000 mL) Start: 12/07/23 6:00:00 EDT, 18 hour(s), Stop date 12/08/23 17:59:00 EDT, Rate: 20 mL/hr ALLERGIES: (3) Tylenol with Codeine Bleach Paxil FAMILY HISTORY: Significant family history related to this admission. SOCIAL HISTORY: No alcohol use or drug use. Does use tobacco. PHYSICAL EXAM: VITALS: No Data Available 24 Hr Tmax: No Data Available 36 Hr Tmax: No Data Available Vital Signs are the last 5 in the past 48 hours. Weights display the last 5 within 7 days. Initial Wt: No Data Available Current Wt: No Data Available GENERAL: Appears well in no distress HEENT: Normocephalic CARDIOVASCULAR: Regular rate and rhythm normal blood pressure RESPIRATORY: Clear bilaterally ABDOMEN: Soft nontender. Well-healed laparoscopic and section scar. No masses EXREMETIES: No edema or deformity NEUROLOGICAL: Intact PSYCHIATRIC: No signs of acute depression or anxiety LABS: No 36hr Lab Data DIAGNOSTICS: Recent ultrasound shows normal-appearing uterus. No adnexal masses. IMPRESSION: Longstanding dysmenorrhea and menorrhagia causing her to have few days a month with inability to work or to do normal daily activities. Had attempted endometrial ablation which was unsuccessful due to uterine perforation at the time of that surgery. PLAN: Options were discussed with her including possibility of using hormonal manipulation, possible progesterone IUD placement, repeat attempt at endometrial ablation, or definitive management with hysterectomy. She would like to proceed with definitive management. Plan is for laparoscopic-assisted vaginal hysterectomy. Procedures, risks, postop expectations were reviewed with the patient. All questions were answered and consents were obtained. Future Appointments Appointment Date:12/14/2023 10:00:00 AM Scheduled Provider:DENISE HADLEY MD Location:[facility] Appointment Type:[facility] Post Op Future Scheduled Tests Laboratory* Complete Blood Count 07/31/23 [facility] 06-13-2024 Anesthesiology Consult note Patient: DEANDRA MCCRAY Age: 38 years Sex: Female : 1985 Associated Diagnoses: None Author: WILLY MALHOTRA SPECIALTY TRIMMER-ROTARY DRILLER Preoperative Information Time of last food or liquid consumption: 12/07/2023 00:00:00 Anesthesia history Patient's history: negative. Family's history: negative. Health Status Allergies: Allergic Reactions (Selected) Moderate Tylenol with Codeine- Migraine. Severity Not Documented Bleach- Rash. Paxil- Vomiting., Allergies (3) ActiveSeverityReaction Tylenol with CodeineModerateMigraine Paxilvomiting Bleachrash Current medications: (Selected) Inpatient Medications Ordered LR 1000 mL: 20 mL/hr, Intravenous, Stop: 12/08/23 17:59:00 EDT Mefoxin: 2 gram(s), 200 mL/hr, IV Piggyback, PREOP pharm Prescriptions Prescribed Percocet 5 mg-325 mg oral tablet: 1 tab(s), Oral, q6h, for 7 day(s), PRN: Pain, 28 tab(s), 0 Refill(s) ibuprofen 600 mg oral tablet: 600 mg, 1 tab(s), Oral, q6h, for 10 day(s), Take with food or milk., PRN: for pain, 40 tab(s), 0 Refill(s) Documented Medications Documented topiramate 100 mg oral tablet: take 1 tablet by mouth at bedtime, Medications (2) Active Scheduled: (1) ceFOXitin 2 gram(s), IV Piggyback, PREOP pharm Continuous: (1) Lactated Ringers 1000 mL 1,000 mL, Intravenous, 20 mL/hr PRN: (0) Problem list: Medical Right ovarian cyst / SNOMED CT 672099432 / Confirmed Dysmenorrhea / SNOMED CT 564339676 / Confirmed Status post laparoscopy / SNOMED CT 2601340747 / Confirmed S/P laparoscopic assisted vaginal hysterectomy (LAVH) / SNOMED CT 8966548806 / Confirmed Menorrhagia with regular cycle / SNOMED CT 4575501511 / Confirmed Pelvic pain / SNOMED CT 829850678 / Confirmed Postop check / SNOMED CT 091143176 / Confirmed Toe pain / SNOMED CT 015609738 / Confirmed, Active Problems (20) Anxiety Concussion Dysmenorrhea Fatigue GERD (gastroesophageal reflux disease) Headache IBS (irritable bowel syndrome) Leg pain, bilateral Menorrhagia with regular cycle Migraines Neuropathy Patent foramen ovale Pelvic pain Postop check Right ovarian cyst S/P laparoscopic assisted vaginal hysterectomy (LAVH) Status post laparoscopy TIA (transient ischemic attack) Tobacco use Toe pain Histories Past Medical History: No active or resolved past medical history items have been selected or recorded. Family History: Diabetes mellitus Grandparent Hypertension Grandparent Sister (Alina Naik) Stroke Mother () Father () Heart attack Mother () Father () Diabetes Mother () Father () Ovarian cancer Mother () Procedure history: delivery (1626196557). Comments: 08/21/2020 8:21 MATILDE Hussein x 3 Tubal ligation (718830341). Dilation and curettage (17353916). 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 [employer] Social History: Social & Psychosocial Habits Alcohol 12/07/2023 Use: Never Substance Abuse 12/07/2023 Use: Never Tobacco 12/07/2023 Tobacco Use: 5-9 cigarettes (between 1 Type: Cigarettes Number of years: 25 Home/Environment 12/07/2023 Living situation: Home/Independent Domestic Concerns None Primary Options Trader: Self Current Home Treatments None Special Services and Community Resources None Spouse Name Aníbal Marital Status of Patient if Patient Independent Adult: Nutrition/Health 12/07/2023 Type of diet: Regular Appetite Fair Eating Difficulties None Physical Examination Vital Signs 12/07/2023 13:36 EDT Systolic Blood Pressure Non-Invasive 89 mmHg mmHg Diastolic Blood Pressure Non-Invasive 52 mmHg mmHg 12/07/2023 13:35 EDT Heart Rate Monitored 80 bpm bpm Respiratory Rate - Anes 8 br/min br/min 12/07/2023 13:34 EDT Systolic Blood Pressure Non-Invasive 94 mmHg mmHg Diastolic Blood Pressure Non-Invasive 47 mmHg mmHg 12/07/2023 13:30 EDT Heart Rate Monitored 82 bpm bpm Respiratory Rate - Anes 8 br/min br/min Systolic Blood Pressure Non-Invasive 76 mmHg mmHg Diastolic Blood Pressure Non-Invasive 43 mmHg mmHg 12/07/2023 13:25 EDT Heart Rate Monitored 94 bpm bpm Respiratory Rate - Anes 13 br/min br/min Systolic Blood Pressure Non-Invasive 105 mmHg mmHg Diastolic Blood Pressure Non-Invasive 70 mmHg mmHg 12/07/2023 13:20 EDT Heart Rate Monitored 81 bpm bpm Respiratory Rate - Anes 0 br/min br/min Systolic Blood Pressure Non-Invasive 94 mmHg mmHg Diastolic Blood Pressure Non-Invasive 59 mmHg mmHg 12/07/2023 13:17 EDT Systolic Blood Pressure Non-Invasive 108 mmHg mmHg Diastolic Blood Pressure Non-Invasive 64 mmHg mmHg 12/07/2023 11:32 EDT Temperature Temporal Artery 36.8 DegC Peripheral Pulse Rate 85 bpm Respiratory Rate 18 br/min Systolic Blood Pressure Non-Invasive 108 mmHg Diastolic Blood Pressure Non-Invasive 57 mmHg LOW Vital Signs (last 24 hrs) Last Charted Temp Zlmbtlfb87.8 DegC (DEC 06 11:32) Heart Rate Yjidqvwsz19 bpm (DEC 06 13:35) SBP89 mmHg (DEC 06 13:36) DBP52 mmHg (DEC 06 13:36) Measurements from flowsheet : Measurements 12/07/2023 11:32 EDT Height 162.6 cm Admission Weight 59.1 kg [place] Body Weight 54.74 kg Admission Body Mass Index 22.35 m2 Pain assessment: Pain Assessment 12/07/2023 11:32 EDT Primary Pain Intensity 0 Pain Scale Type 0-10 Pain scale . General: Alert and oriented. Airway: Normal temporomandibular joint mobility, Normal mouth, Normal neck range of motion. Mallampati classification: II (soft palate, fauces, uvula visible). Dentition Evaluation: Denies loose/chipped teeth. Respiratory: Respirations are non-labored. Cardiovascular: Normal rate. Neurologic: Alert, Oriented. Review / Management Results review: No qualifying data available , Lab results 12/07/2023 13:48 EDT SN - Irl - Irrigant Normal Saline SN - IrI - Volume In 1,000 mL SN - IrI - Volume Out 1,000 mL 12/07/2023 13:45 EDT SN - Proc - Anesthesia Type General SN - Proc - Actual Procedure LAPAROSCOPIC ASSISTED VAGINAL HYSTERECTOMY 12/07/2023 13:45 EDT SN - CAt - Case Attendee SN - CAt - Case Attendee SN - CAt - Role Performed Data Management Manager 1 12/07/2023 13:44 EDT SN - SP - Prep Agents Betadine Scrub, Betadine Solution SN - SP - HR - Method N/A 12/07/2023 13:43 EDT SN - CAt - Case Attendee SN - CAt - Case Attendee SN - CAt - Role Performed Chemical Educator Relief 12/07/2023 13:43 EDT SN - SP - Prep Agents Chloraprep SN - SP - HR - Method N/A 12/07/2023 13:42 EDT SN - CTm - Surgery Start 12/07/2023 13:39 12/07/2023 13:36 EDT Systolic Blood Pressure Non-Invasive 89 mmHg mmHg Diastolic Blood Pressure Non-Invasive 52 mmHg mmHg 12/07/2023 13:35 EDT Heart Rate Monitored 80 bpm bpm Respiratory Rate - Anes 8 br/min br/min Oxygen Saturation 99 % % Set Rate Anes 8 br/min br/min 12/07/2023 13:34 EDT Systolic Blood Pressure Non-Invasive 94 mmHg mmHg Diastolic Blood Pressure Non-Invasive 47 mmHg mmHg 12/07/2023 13:30 EDT SN - PP - Body Position Lithotomy Standard Intra-op 12/07/2023 13:30 EDT Heart Rate Monitored 82 bpm bpm Respiratory Rate - Anes 8 br/min br/min Systolic Blood Pressure Non-Invasive 76 mmHg mmHg Diastolic Blood Pressure Non-Invasive 43 mmHg mmHg Oxygen Saturation 99 % % Set Rate Anes 8 br/min br/min 12/07/2023 13:25 EDT Heart Rate Monitored 94 bpm bpm Respiratory Rate - Anes 13 br/min br/min Systolic Blood Pressure Non-Invasive 105 mmHg mmHg Diastolic Blood Pressure Non-Invasive 70 mmHg mmHg Oxygen Saturation 100 % % 12/07/2023 13:24 EDT SN - PTCare - Anti-thromboembolism Miroslava Sequential Compression Device (SCD) 12/07/2023 13:24 EDT SN - Assess - LOC Alert SN - Assess - Orientation Oriented X 3 SN - Assess - Post-op Skin Integrity Intact/Dry 12/07/2023 13:22 EDT SN - GCD - Post-operative Diagnosis MENORRHAGIA; DYSMENORRHEA SN - GCD - Case Level Level 5 12/07/2023 13:20 EDT SN - TDC - Device Type TRAY ORTIZ 15FR 5CC SILICONE L 10/CA [id number] SN - TDC - DC'd at End of Case Yes 12/07/2023 13:20 EDT Heart Rate Monitored 81 bpm bpm Respiratory Rate - Anes 0 br/min br/min Systolic Blood Pressure Non-Invasive 94 mmHg mmHg Diastolic Blood Pressure Non-Invasive 59 mmHg mmHg Oxygen Saturation 100 % % 12/07/2023 13:17 EDT Systolic Blood Pressure Non-Invasive 108 mmHg mmHg Diastolic Blood Pressure Non-Invasive 64 mmHg mmHg 12/07/2023 13:15 EDT SN - CAt - Case Attendee SN - CAt - Case Attendee SN - CAt - Role Performed Scrub 1 12/07/2023 13:01 EDT SN - CAt - Case Attendee SN - CAt - Case Attendee SN - CAt - Case Attendee SN - CAt - Case Attendee SN - CAt - Case Attendee SN - CAt - Case Attendee SN - CAt - Case Attendee SN - CAt - Case Attendee SN - CAt - Case Attendee SN - CAt - Case Attendee SN - CAt - Role Performed Primary Surgeon SN - CAt - Role Performed ROTARY DRILLER SN - CAt - Role Performed Chemical Educator 1 SN - CAt - Role Performed Scrub 1 SN - CAt - Role Performed Data Management Manager 1 12/07/2023 11:39 EDT SN - Preop - CTm Pt in SDS Room 12/07/2023 11:23 SN - Preop - CTm Pt Ready for OR/Proced 12/07/2023 11:38 12/07/2023 11:37 EDT Preop Nasal Swab Povidone-Iodine CHG Skin Prep Completed for Eligible Surgery 12/07/2023 11:36 EDT Lactated Ringers Injection Begin Bag 1,000 mL mL 12/07/2023 11:35 EDT Antecubital Left 12/07/2023 20 gauge Peripheral IV Activity: Insert new site Peripheral IV Dressing Condition: Clean, Dry, Intact Peripheral IV Dressing Activity: Applied Peripheral IV Line Status/Patency: Flushes easily Peripheral IV Site Condition: No complications Peripheral IV Equipment: Extension set Peripheral IV Number of Attempts: 1 12/07/2023 11:32 EDT Height 162.6 cm Admission Weight 59.1 kg [place] Body Weight 54.74 kg Admission Body Mass Index 22.35 m2 Temperature Temporal Artery 36.8 DegC Peripheral Pulse Rate 85 bpm Respiratory Rate 18 br/min Systolic Blood Pressure Non-Invasive 108 mmHg Diastolic Blood Pressure Non-Invasive 57 mmHg LOW Primary Pain Intensity 0 Pain Scale Type 0-10 Pain scale Heart Rhythm Regular Respirations Unlabored Respiratory Pattern Regular Oxygen Saturation 100 % Abdomen Description Non-distended, Symmetric Abdomen Palpation Non-Tender Bowel Sounds All Quadrants Present Urinary Elimination Voiding, no difficulties Skin Temperature Warm Skin Description Normal for ethnicity Skin Integrity Intact Characteristics of Speech Clear Level of Consciousness Alert Strength All Extremities Strong Tone All Extremities Normal Sensation All Extremities Intact Affect/Behavior Appropriate, Calm, Cooperative Orientation Oriented x 4 Activity Status ADL Awake, Resting Standard Safety ID band on, Allergy Band on, Call device within reach, Bed in low position, Wheels locked, Upper/Half-Length side-rails up, Phone within reach, Safety level maintained 12/07/2023 11:29 EDT Allergies Yes Consent Form Signed Yes Patient Dressed In Hospital gown CHG Preoperative Wash/Wipe Night before procedure, Day of procedure History & Physical On Chart Yes NPO Status Maintained Allergy Band on and Verified Yes Patient ID Band on and Verified Yes Implants Verified Yes Pacemaker/AICD Verified Yes Site Verified by Patient/Family Yes Blood Consent Signed Yes Last Fluid Intake 12/06/2023 22:00 Last Food Intake 12/06/2023 22:00 Last Void 12/07/2023 11:15 12/07/2023 11:28 EDT Designated Person #1 We May Share PHI EVA MCCRAY [phone] Designated Person #1 Relationship Spouse Designated Person #2 We May Share PHI [place] [phone] Designated Person #2 Relationship Son Privacy Restrictions Requested None Status No, per patient Sensory Deficits None Sleep Apnea Snore No Sleep Apnea Tired No Sleep Apnea Obstruction Yes Sleep Apnea Pressure No Sleep Apnea BMI No Sleep Apnea Age No Sleep Apnea Neck No Sleep Apnea Gender No Sleep Apnea Score 1 Diagnosed With Sleep Apnea No Advanced Directives No - refuses information Infectious Disease Symptoms Patient states no symptoms Infectious Disease Recent Exposure No Alcohol and Drug Use No Employee of Institutional Living No Health Care Employee No History of Exposure to TB No History of Positive Chest X-Ray for TB No History of Positive TB Skin Test No Homeless No Known Immunosuppression No Recent Immigrant No Resident of Institutional Living No Bloody Sputum No Fatigue No Fever No Loss of Appetite No Night Sweats No Persistent Cough > 3 Weeks No Weight Loss No Patient Aware Date/Time Of Surgery Yes Previous Surgery At This Facility Yes Pre-Op Patient Education NPO after midnight, No smoking after midnight, No makeup, No jewelry, Responsible [employer] Party, Aware of surgery location, Pre-op education done, 1 bottle CHG wash with instructionsgiven, No ordered medications, SSI prevention handout given SN - Preprocedure Comments Spoke with patient, Verbalizes/Nonverbally indicates understanding Barriers to Learning None evident Teaching Method Explanation Preferred Spoken Language Filipino Preferred Written Language Filipino Teaching Evaluation No further teaching needed Safety Brochure Information Reviewed Unable to complete Sandy Gareth Video Viewed No Information Given by Patient Patient's Current Physicians Patient's Current Physicians Discharge To, Anticipated Home independently Prev Test Positive/Diagnosis w/COVID-19 Yes Previous COVID-19 Positive 2019 Current Quarantine/Isolated any Illness No Any Contact with Sick Animals/Birds No Traveled Anywhere in Last 30 Days No Lost Weight Unintentionally Recently No Eat Poorly Due to Decreased Appetite No Total MST Score 0 No Personal Devices, Patient Valuables None Anesthesia/Transfusions None Admission Note-Nursing Same Day Patient History 12/07/2023 11:24 EDT Test Urine Negative test (u) int test (u) int ABO/Rh Interp O NEG ABSC Interp (Gel) Negative ABSC QC PRGUN Negative QC PRGUP Positive 12/07/2023 8:22 EDT CSummary CSUMMARY 12/07/2023 8:01 EDT [place] History and Physical . Assessment and Plan [place] [employer] (ASA) physical status classification: Class II. Anesthetic Preoperative Plan Anesthetic technique: General. Informed consent: signed by patient, discussed her pfo and hx at length. Pt was being seen for her TIA's and they discovered her pfo. She was on ASA for awhile and was then taken off. No treatments were offered for her pfo and no further f/u needed per pt.. Digitally Signed by WILLY MALHOTRA on 12/07/2023 01:52 PM [facility]06-13-2024 Note [facility] ADMISSION HISTORY AND PHYSICIAL CHIEF COMPLAINT: Deandra is a 38-year-old with a long history of menorrhagia and dysmenorrhea. She had an attempted endometrial ablation a few months ago which was unsuccessful due to uterine perforation. She continues to experience clotting with her periods and severe dysmenorrhea which causes herto miss work. HISTORY OF PRESENT ILLNESS: Longstanding dysmenorrhea and menorrhagia. Failed endometrial ablation.She generally has regular monthly menses. REVIEW OF SYSTEMS: Other than dysmenorrhea and menorrhagia her review of systems is relatively uncomplicated except that she had a recent admission to the emergency room secondary to chest pain and numbness in one of her arms. Workup was negative for cardiovascular issues. She also has a history ofirritable bowel syndrome and migraine headaches. ACTIVE PROBLEMS: (19) Anxiety (30370373) Concussion (2994610010) Dysmenorrhea (021771330) Fatigue (007730080) GERD (gastroesophageal reflux disease) (815345133) Headache (71779729) IBS (irritable bowel syndrome) (85392738) Leg pain, bilateral (525459417) Menorrhagia with regular cycle (0967924436) Migraines (65022816) Neuropathy (1989010802) Patent foramen ovale (999715638) Pelvic pain (775313028) Postop check (266571888) Right ovarian cyst (499652741) Status post laparoscopy (8773658779) TIA (transient ischemic attack) (572011974) Tobacco use (3612258033) Toe pain (695373319) MEDICATIONS: Active Inpt Meds: cefOXitin (Mefoxin) Start: 12/07/23 6:00:00 EDT, Dose = 2 gram(s), IV Piggyback, PREOP pharm, 18 hour(s), Stop: 12/07/23 23:59:00 EDT, Rate: 200 mL/hr, Infuse over: 30 minute(s), 0 Active PRN Meds: None One Time Meds: None Active IV Meds: Lactated Ringers Infusion 1000 mL (LR 1000 mL) Start: 12/07/23 6:00:00 EDT, 18 hour(s), Stop date 12/08/23 17:59:00 EDT, Rate: 20 mL/hr ALLERGIES: (3) Tylenol with Codeine Bleach Paxil FAMILY HISTORY: Significant family history related to this admission. SOCIAL HISTORY: No alcohol use or drug use. Does use tobacco. PHYSICAL EXAM: VITALS: No Data Available 24 Hr Tmax: No Data Available 36 Hr Tmax: No Data Available Vital Signs are the last 5 in the past 48 hours. Weights display the last 5 within 7 days. Initial Wt: No Data Available Current Wt: No Data Available GENERAL: Appears well in no distress HEENT: Normocephalic CARDIOVASCULAR: Regular rate and rhythm normal blood pressure RESPIRATORY: Clear bilaterally ABDOMEN: Soft nontender. Well-healed laparoscopic and section scar. No masses EXREMETIES: No edema or deformity NEUROLOGICAL: Intact PSYCHIATRIC: No signs of acute depression or anxiety LABS: No 36hr Lab Data DIAGNOSTICS: Recent ultrasound shows normal-appearing uterus. No adnexal masses. IMPRESSION: Longstanding dysmenorrhea and menorrhagia causing her to have few days a month with inability to work or to do normal daily activities. Had attempted endometrial ablation which was unsuccessful due to uterine perforation at the time of that surgery. PLAN: Options were discussed with her including possibility of using hormonal manipulation, possible progesterone IUD placement, repeat attempt at endometrial ablation, or definitive management with hysterectomy. She would like to proceed with definitive management. Plan is for laparoscopic-assisted vaginal hysterectomy. Procedures, risks, postop expectations were reviewed with the patient. All questions were answered and consents were obtained. Digitally Signed by DENISE HADLEY MD on 12/07/2023 08:09 AM [facility]06-08-2024 Hospital Discharge instructions Patient Education 12/02/2023 12:51:53 Chest Pain, Uncertain Cause Uncertain Causes of Chest Pain Chest pain can happen for a number of reasons. Sometimes the cause can't be determined. If your condition does not seem serious, and your pain does not appear to be coming from your heart, your healthcare provider may recommend watching it closely. Sometimes the signs of a serious problem take moretime to appear. Many problems not related to your heart can cause chest pain. These include: Musculoskeletal. Costochondritis is an inflammation of the tissues around the ribs that can occur from trauma or overuse injuries, or a strain of the muscles of the chest wall Respiratory. Pneumonia, collapsed lung (pneumothorax), or inflammation of the lining of the chest and lungs (pleurisy) Gastrointestinal. Esophageal reflux, heartburn, ulcers, or gallbladder disease Anxiety and panic disorders Nerve compression and inflammation Rare miscellaneous problems such as aortic aneurysm (a swelling of the large artery coming out of the heart) or pulmonary embolism (a blood clot in the lungs) Home care After your visit, follow these recommendations: Rest today and avoid strenuous activity. Take any prescribed medicine as directed. Be aware of any recurrent chest pain and notice any changes Follow-up care Follow up with your healthcare provider if you do not start to feel better within 24 hours, or as advised. Call 911 Call 911 if any of these occur: A change in the type of pain: if it feels different, becomes more severe, lasts longer, or begins to spread into your shoulder, arm, neck, jaw or back Shortness of breath or increased pain with breathing Weakness, dizziness, or fainting Rapid heart beat Crushing sensation in your chest When to seek medical advice Call your healthcare provider right away if any of the following occur: Cough with dark colored sputum (phlegm) or blood Fever of 100.4 F (38 C) or higher, or as directed by your healthcare provider Swelling, pain or redness in one leg [phone] [employer]. [address] [place] [address], [place] [address]. All rights reserved. This information is not intended as a substitute for professional medical care. Always follow yourhealthcare professional's instructions. Follow Up Care 12/02/2023 12:14:45 With:JM CHILDRESS MD Address: [address] [place] [phone] When:2-4 days [facility] 06-08-2024 Emergency department Discharge summary Discharge Instructions Thank you for allowing [facility] to assist you with your healthcare needs. The following is importantdischarge information regarding your hospital visit. Diagnosis from Today's Visit Chest pain Paresthesia of arm What to Do Next Instructions from Your Care Team No qualifying data available. Post Acute Orders No qualifying data available. You Need to Schedule the Following Appointments Follow Up with JM CHILDRESS MD When:Within 2-4 days Where:[address] [place] [address] [phone] Allergies Tylenol with Codeine (Moderate) Migraine Bleach rash Paxil vomiting Medications Please ask your primary doctor or pharmacist before taking any other medication not listed, including over the counter drugs, herbal medications, vitamins and or supplements as they may interact withyour home medications. What How Much When Instructions Last Dose New hydrOXYzine (Vistaril 25 mg oral capsule) 1 cap by mouth Four (4) times a day as needed for as needed for anxiety Printed Prescription Unchanged naproxen (naproxen 250 mg oral tablet) 1 tab(s) by mouth Two (2) times a day as needed for as needed for pain Unchanged topiramate (topiramate 100 mg oral tablet) take 1 tablet by mouth at bedtime Please take this list to your next doctor s visit. Bring all medications you take, including over the counter medications, herbals and other supplements with you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 will: Prolong your life Improve your health (Smoking increases your risk of lung cancer, throat cancer, emphysema, heart disease, high blood pressure, ulcers, gum disease and other conditions.) Feel healthier (Smoking can cause coughing, poor athletic ability and sore throats.) Look better (Smoking can cause face wrinkles, stained teeth and dull skin.) Improve your sense of taste and smell Save money How can I quit? There's no one way to quit that works for everyone. A smoking cessation program may be helpful to you. Ask your health care provider about smoking cessation programs in your community. Before you quit all at once (cold turkey), setting a plan will help: Pick a date to stop smoking and then get ready for it. Record when and why you smoke. You will come to know what triggers your urges to smoke. Record what you do when you smoke. As you plan to stop, try smoking at different times and different places to break the connections between smoking and certain activities. List your reasons for quitting. Read over the list before and after you quit. Find activities to replace smoking. Be ready to do something else when you want to smoke. Ask your health care provider about using nicotine gum and patches. Some people find these aids arevery helpful. Also ask your doctor about a nicotine-free prescription medication (for example, Chantix or Zyban ) that can help you quit smoking. What to do when you quit On the day you pick to quit, start that morning without a cigarette. Don't focus on what you are missing. Think about what you are gaining. (See the section below, What Happens When You Quit.) Tell yourself you are a great person for quitting. Remind yourself of this when you want a smoke. When you get the urge to smoke, take a deep breath. Hold it for ten seconds, then release it slowly. Keep your hands busy. Doodle, play a sport, knit or work on a computer. Change activities that were connected to smoking. Take a walk or read a book instead of taking a cigarette break. Don't carry a cooling pan tender, matches or cigarettes. Go to places that don't allow smoking, such as museums and libraries. Eat low-calorie, healthy foods when the urge to smoke strikes. Carrot and celery sticks, fresh fruits and fat-free snacks are good choices. Drink a lot of fluids. Cut down on alcohol and caffeine. They can trigger urges to smoke. Select water, herbal teas, caffeine-free soft drinks and juices. Exercise. Exercising will help you relax. Hang out with non-smokers. Get support for quitting. Tell others about your milestones with pride. What happens when you quit? After 20 minutes You stop polluting the air Your blood pressure and pulse decrease The temperature of your hands and feet increases After 8 hours The carbon monoxide level in your blood returns to normal Oxygen levels in your blood increase After 24 hours Your chance of heart attack decreases After 48 hours Nerve endings adjust to the absence of nicotine Your ability to taste and smell begin to return After 72 hours Bronchial tubes relax After 2 weeks to 3 months Your circulation improves Your exercise tolerance improves After 1-9 months Coughing, sinus congestion, fatigue and shortness of breath decrease Cilia re-grow, increasing the ability of the lungs to handle mucus, clean the lungs and reduce infection Your overall energy level increases After 1 year Your risk of heart disease decreases to half that of a current smoker After 5 years Your risk of stroke is reduced to that of people who have never smoked After 10 years Risk of dying from lung cancer drops to almost the same rate as a lifelong NON-smoker The incidence of other cancers - of the mouth, larynx, esophagus, bladder, kidney and pancreas - decreases More good news: Quitting smoking improves your ability to breathe! Even nonsmokers experience a decrease in lung capacity (the volume of air you are able to take in and forcibly exhale in one second) with age. However, you can minimize the impact by quitting smoking. If you want to breathe easier, the earlier you quit, the more lung capacity you will retain -- here are some facts: If you are a smoker who has smoked an average of 30 cigarettes a day beginning at age 25, your lung capacity could decrease slightly more than a nonsmoker and would be below the average capacity of a nonsmoker by the time you turn 40. Furthermore, if you are a smoker who is at riskfor chronic obstructive pulmonary disease (a lung disease), your lung capacity can decrease rapidlyby age 65 at which point you will likely be frequently short of breath. How will I feel when I quit? You may: crave cigarettes, feel very hungry, cough often, get headaches, have difficulty concentrating, have constipation, feel very tired, have a sore throat or have difficulty sleeping. Although withdrawal symptoms will be the strongest when you first quit, they should go away within a few weeks. I've tried quitting before, but it didn't work. What can I do? To quit smoking, you must be ready emotionally and mentally. Some people are more ready to quit than others. Look at these five stages of change. Stage one: Pre-contemplation - The person does not want to quit smoking but may try to quit becausehe or she feels pressured. Stage two: Contemplation - The person wants to quit someday. He or she has not taken steps to quit,but wants to quit. Stage three: Preparation - The person takes small steps to quit such as cutting back on smoking or switching to a cooling pan tender brand. Stage four: Action - The person puts a plan for quitting into action. He or she makes changes in his or her actions and environment to help cope with urges to smoke. The person trinh with urges to smoke by following the plan and remains smoke-free for six months. Stage five: Maintenance - The person has not smoked for one year. Smoking again (relapse) is common; 75% of those who quit, smoke again. Most smokers have tried three times before successfully quitting. Don't give up! For more information [employer] [phone] [employer] [employer] [phone] [employer] [employer] [phone] References: COPD Foundation. Understanding COPD. Living With COPD. Quitting Smoking Accessed 04/28/2014. [employer] [employer]. Stop Smoking Accessed 04/28/2014. Copyright 9137-5675 [facility]. All rights reserved This information is provided by the [facility] and is not intended to replace the medical advice of your doctor or health care provider. Please consult your health care provider for advice about a specific medical condition. For additional health information, please contact the Center for Consumer Health Information at the [facility] or toll-free extension [phone]. If you prefer, you may visit [email or web address] or [email or web address]. This document was last reviewed on: 2017 documented in this encounterC[facility]04-10-[facility]24 History of Present illness Narrative* Jud Denny APRN.CNP - 10/04/2023 9:24 AM EDT This note was created using NoteWriter. Subjective Deandra Mccray is a 38 year old female. Patient had surgery at the end of April, right ovary removed due to cyst. Going to have partial hysterectomy with uterus and cervix removed, keeping the left ovary. In early May, she got a URI and has had a cough since that time. Currently smoking 1/2 PPD. Started smoking at age 9, has never been able to quit. Has tried Chantix but couldn't tolerate due to anger and insomnia. Also tried Wellbutrin but it gave her headaches and didn't help with cravings. Cough is worse in the morning and at night. Feels tight in upper chest. No wheezing. Does have some nasal congestion/postnasal drip. History of GERD, used to be on protonix but hasn't been taking it for months, denies symptoms. Patient still having sleep difficulties. 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 Previous sleep study results reviewed and discussed with patient which recommended comprehensive sleep evaluation if symptoms persist. Still has fatigue, doesn't feel rested after sleep. Patient has car park attendant for monitoring of PFO, last appointment in June 2021, recommended for yearly follow-up. The history is provided by the patient. Cough This is a chronic problem. Cough characteristics: sometimes dry, sometimes clear phlegm. There has been no fever. Associated symptoms include chest pain. Pertinent negatives include no chills, no earpain, no shortness of breath and no wheezing. She has tried nothing for the symptoms. She is a smoker. Her past medical history does not include pneumonia, COPD or asthma. Review of Systems Constitutional: Negative for chills and fever. HENT: Positive for congestion and postnasal drip. Negative for ear pain. Respiratory: Positive for cough and chest tightness. Negative for shortness of breath and wheezing. Cardiovascular: Positive for chest pain. Allergic/Immunologic: Negative for immunocompromised state. 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 disorder Depression (non-psychotic) Endometriosis 06/26/2005 per in [place], diagnosed at laparoscopy, bowel involvement Genital herpes GERD (gastroesophageal reflux disease) 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 Leg pain, bilateral 04/26/2021 PFO (patent foramen ovale) 09/26/2011 TIA (transient ischemic attack) 09/28/2012 Tobacco use disorder PAST SURGICAL HISTORY Procedure Laterality Date CATH & SALINE/CONTRAST SONOHYSTER/HYSTEROSALPI 2004 DELIVERY ONLY 03/25/06-baby C/S, low cervical 15 WEEK GESTATION BABY DELIVERY ONLY 2009 , low transverse DELIVERY ONLY 05/17/2011 , low transverse COLONOSCOPY FLX DX W/COLLJ SPEC WHEN PFRMD 12/19/2012 Colonoscopy COLONOSCOPY FLX DX W/COLLJ SPEC WHEN PFRMD 04/22/2020 Colonoscopy COLPOSCOPY CERVIX UPPER/ADJACENT VAGINA 2008 Colposcopy CONIZATION CERVIX W/WO D&C RPR ELTRD EXC 2008 LEEP-Cervix ESOPHAGOGASTRODUODENOSCOPY TRANSORAL DIAGNOSTIC 12/19/2012 EGD ESOPHAGOGASTRODUODENOSCOPY TRANSORAL DIAGNOSTIC 04/22/2020 EGD EXT HYSTERECTOMY,W/PARTIAL VAGINECTO 05/29/2023 INSERTION OF IUD 06/24/2013 LAPS ABD PRTM&OMENTUM DX W/WO SPEC BR/WA SPX 2006 Laparoscopy X2 Endometriosis LAPS ABD PRTM&OMENTUM DX W/WO SPEC BR/WA SPX 2008 Laparoscopy LIG/TRNSXJ FLP TUBE ABDL/VAG APPR UNI/BI 05/17/2011 Tubal ligation PAST SURGICAL HISTORY OF 2000 SCALP LESION ALLERGIES Codeine, Paxil [Paroxetine Hcl], and Tylenol-Codeine #3 [Acetaminophen-Codeine] MEDICATIONS topiramate (TOPAMAX) 100 mg tablet take 1 tablet by mouth at bedtime albuterol HFA (PROVENTIL HFA) 90 mcg/actuation inhaler Inhale 2 Puffs as instructed every 6 hours as needed. FAMILY HISTORY Problem Relation Age of Onset other (OVARIAN REMNANT SYNDROME) Mother age 52 pulmonary other (SLE) Mother Hypertension Mother Hyperlipidemia Mother Stroke Mother Heart Failure Mother COPD Mother Coronary Artery Disease Father age 58 MVA (motorcycle) Hypertension Father Hyperlipidemia Father Diabetes Father Developmental problem Sister MENTAL RETARDATION/SEXUAL ADDICTION Heart Maternal Grandmother ENLARGED HEART Cancer Maternal Grandfather LUNG Heart Maternal Grandfather [place] Diabetes Maternal Grandfather Heart Paternal Grandfather [place] Stroke Paternal Grandfather Diabetes Paternal Grandfather Heart Other MGGM ENLARGED HEART Aneurysm No Family History Social History Tobacco Use Smoking status: Every Day Packs/day: 1.00 Years: 24.00 Additional pack years: 0.00 Total pack years: 24.00 Types: Cigarettes Smokeless tobacco: Never Tobacco comments: 03/10- has cut down to 4 cigs/day Vaping Use Vaping Use: Never used Substance Use Topics Alcohol use: No Drug use: No Comment: Never Objective BP 110/69 Pulse 75 Ht 162.6 cm (5' 4.02) Wt 64.1 kg (141 lb 5 oz) LMP 09/24/2023 (Approximate) BMI 24.24 kg/m Physical Exam Vitals and nursing note reviewed. Constitutional: Appearance: She is well-developed. She is not ill-appearing. HENT: Mouth/Throat: Mouth: Mucous membranes are moist. Eyes: Conjunctiva/sclera: Conjunctivae normal. Cardiovascular: Rate and Rhythm: Normal rate and regular rhythm. Heart sounds: Normal heart sounds. Pulmonary: Effort: Pulmonary effort is normal. Breath sounds: Normal breath sounds. Comments: No cough noted Skin: General: Skin is warm and dry. Neurological: Mental Status: She is alert and oriented to person, place, and time. Assessment and Plan 1. Chronic cough Discussed possible etiologies of allergies/postnasal drip, GERD, asthma/COPD, post-viral cough. Recommend trial of albuterol PRN for chest tightness/severe cough, antihistamine/nasal steroid for congestion/postnasal drip and re-start Protonix for a couple weeks. Also chest x-ray and spirometry. Follow up if no improvement in the next 2-3 weeks and to discuss test results. - XR CHEST 2V FRONTAL/LAT - albuterol HFA (PROVENTIL HFA) 90 mcg/actuation inhaler; Inhale 2 Puffs as instructed every 6 hours as needed. Dispense: 1 Each; Refill: 0 - SPIROMETRY - BASELINE AND POST DILATOR; Future 2. Continuous tobacco abuse Encouraged complete cessation, recommend to call [phone] 3. Chronic insomnia Recommend sleep medicine consult. - CONSULT TO SLEEP MEDICINE - ADULT; Future 4. PFO (patent foramen ovale) Stable, overdue for follow-up with car park attendant, recommended to schedule. Jud Denny APRN.MANNIE documented in this encounterC[facility] Hospital Discharge instructions Patient Education 08/01/2023 17:29:10 Chest Pain, Noncardiac Noncardiac Chest Pain Based on your visit today, the healthcare provider doesn t know what is causing your chest pain. Inmost cases, people who come to the emergency department with chest pain don t have a problem with their heart. Instead, the pain is caused by other conditions. It's important for the healthcare team to be sure you are not having a life threatening cause for chest pain such as a heart attack, blood c lot in the lungs, collapsed lung, ruptured esophagus, or tearing of the aorta. Once these major causes have been ruled out, you may have further evaluation for non-heart causes of chest pain. These may be problems with the lungs, muscles, bones, digestive tract, nerves, or mental health. Lung problems Inflammation around the lungs (pleurisy) Collapsed lung (pneumothorax) Fluid around the lungs (pleural effusion) Lung cancer (a rare cause of chest pain) Muscle or bone problems Inflamed cartilage between the ribs (costochondritis) Fibromyalgia Rheumatoid arthritis Chest wall strain Digestive system problems Reflux Stomach ulcer Spasms of the esophagus Gall stones Gallbladder inflammation Mental health conditions Panic or anxiety attacks Emotional distress Your condition doesn t seem serious and your pain doesn t appear to be coming from your heart. But sometimes the signs of a serious problem take more time to appear. Watch for the warning signs listed below. Home care Follow these guidelines when caring for yourself at home: Rest today and avoid strenuous activity. Take any prescribed medicine as directed. Follow-up care Follow up with your healthcare provider, or as advised, if you don t start to feel better within 24hours. When to seek medical advice Call your healthcare provider right away if any of these occur: A change in the type of pain. Call if it feels different, becomes more serious, lasts longer, or begins to spread into your shoulder, arm, neck, jaw, or back. Shortness of breath You feel more pain when you breathe Cough with dark-colored mucus or blood Weakness, dizziness, or fainting Fever of 100.4 F (38 C) or higher, or as directed by your healthcare provider Swelling, pain, or redness in one leg [phone] [employer]. [address] [place] [address], [place] [address]. All rights reserved. This information is not intended as a substitute for professional medical care. Always follow yourhealthcare professional's instructions. 08/01/2023 17:29:01 Shortness of Breath (Dyspnea) Shortness of Breath (Dyspnea) Shortness of breath is the feeling that you can't catch your breath or get enough air. It is also known as dyspnea. Dyspnea can be caused by many different conditions. They include: Acute asthma attack Worsening of chronic lung diseases such as chronic bronchitis and emphysema Heart failure. This is when weak heart muscle allows extra fluid to collect in the lungs. Panic attacks or anxiety. Fear can cause rapid breathing (hyperventilation). Pneumonia, or an infection in the lung tissue Exposure to toxic substances, fumes, smoke, or certain medicines Blood clot in the lung (pulmonary embolism). This is often from a piece of blood clot in a deep vein of the leg (deep vein thrombosis) that breaks off and travels to the lungs. Heart attack or heart-related chest pain (angina) Anemia Collapsed lung (pneumothorax) Dehydration Based on your visit today, the exact cause of your shortness of breath is not certain. Your tests don t show any of the serious causes of dyspnea. You may need other tests to find out if you have a serious problem. It s important to watch for any new symptoms or symptoms that get worse. Follow up with your healthcare provider as directed. Home care Follow these tips to take care of yourself at home: When your symptoms are better, go back to your usual activities. If you smoke, you should stop. Join a quit-smoking program or ask your healthcare provider for help. Eat a healthy diet and get plenty of sleep. Get regular exercise. Talk with your healthcare provider before starting to exercise, especially ifyou have other medical problems. Cut down on the amount of caffeine and stimulants you consume. Follow-up care Follow up with your healthcare provider, or as advised. If tests were done, you will be told if your treatment needs to be changed. You can call as directed for the results. If an X-ray was taken, a specialist will review it. You will be notified of any new findings that may affect your care. Call 911 Shortness of breath may be a sign of a serious medical problem. For example, it may be a problem with your heart or lungs. Call 911 if you have worsening shortness of breath or trouble breathing, especially with any of the symptoms below: Confusion or difficulty waking Fainting or loss of consciousness. Fast or irregular heartbeat Coughing up blood Pain in your chest, arm, shoulder, neck, or upper back Sweating When to seek medical advice Call your healthcare provider right away if any of these occur: Slight shortness of breath or wheezing Redness, pain or swelling in your leg, arm, or other body area Swelling in both legs or ankles Fast weight gain Dizziness or weakness Fever of 100.4 F (38 C) or higher, or as directed by your healthcare provider [phone] [employer]. [address] [place] [address]. All rights reserved. This information is not intended as a substitute for professional medical care. Always follow yourhealthcare professional's instructions. Follow Up Care 08/01/2023 16:06:02 With:FIOR HERNANDEZ, JM MORA Address: [address] [place], [place] [id number] [phone] When:2-4 days [facility] 02-06-2024 Emergency department Discharge summary Discharge Instructions Thank you for allowing [facility] to assist you with your healthcare needs. The following is importantdischarge information regarding your hospital visit. Diagnosis from Today's Visit Numbness/tingling x 2 weeks What to Do Next Instructions from Your Care Team No qualifying data available. Post Acute Orders No qualifying data available. You Need to Schedule the Following Appointments Follow Up with FIOR HERNANDEZ, JM MORA When Within 2-4 days Where: [address] [place] [phone] Allergies Tylenol with Codeine (Migraine) Medications Please ask your primary doctor or pharmacist before taking any other medication not listed, including over the counter drugs, herbal medications, vitamins and or supplements as they may interact withur home medications. What How Much When Instructions Last Dose Unchanged aspirin (aspirin 81 mg oral delayed release tablet) 1 tab(s) by mouth Once a day Unchanged docusate (Colace 100 mg oral capsule) 1 cap by mouth Two (2) times a day as needed for as needed for constipation Duration: 30 Days Unchanged estradiol (Estrace 2 mg oral tablet) 1 tab(s) by mouth Once a day Duration: 30 Days Unchanged naproxen (naproxen 250 mg oral tablet) 1 tab(s) by mouth Two (2) times a day as needed for as needed for pain Unchanged norethindrone (Aygestin 5 mg oral tablet) 1 tab(s) by mouth Once a day Duration: 14 Days Unchanged rimegepant (Nurtec ODT 75 mg oral tablet, disintegrating) 1 tab(s) by mouth Once as needed for as needed for migraine headache Unchanged topiramate (topiramate 100 mg oral tablet) take 1 tablet by mouth at bedtime Please take this list to your next doctor s visit. Bring all medications you take, including over the counter medications, herbals and other supplements with you to your doctor s visit. Patients and families are reminded to discard old lists and to update any records with all medication providers or retail pharmacies. Education Materials Noncardiac Chest Pain Based on your visit today, the healthcare provider doesn t know what is causing your chest pain. Inmost cases, people who come to the emergency department with chest pain don t have a problem with their heart. Instead, the pain is caused by other conditions. It's important for the healthcare team to be sure you are not having a life threatening cause for chest pain such as a heart attack, blood c lot in the lungs, collapsed lung, ruptured esophagus, or tearing of the aorta. Once these major causes have been ruled out, you may have further evaluation for non-heart causes of chest pain. These may be problems with the lungs, muscles, bones, digestive tract, nerves, or mental health. Lung problems Inflammation around the lungs (pleurisy) Collapsed lung (pneumothorax) Fluid around the lungs (pleural effusion) Lung cancer (a rare cause of chest pain) Muscle or bone problems Inflamed cartilage between the ribs (costochondritis) Fibromyalgia Rheumatoid arthritis Chest wall strain Digestive system problems Reflux Stomach ulcer Spasms of the esophagus Gall stones Gallbladder inflammation Mental health conditions Panic or anxiety attacks Emotional distress Your condition doesn t seem serious and your pain doesn t appear to be coming from your heart. But sometimes the signs of a serious problem take more time to appear. Watch for the warning signs listed below. Home care Follow these guidelines when caring for yourself at home: Rest today and avoid strenuous activity. Take any prescribed medicine as directed. Follow-up care Follow up with your healthcare provider, or as advised, if you don t start to feel better within 24hours. When to seek medical advice Call your healthcare provider right away if any of these occur: A change in the type of pain. Call if it feels different, becomes more serious, lasts longer, or begins to spread into your shoulder, arm, neck, jaw, or back. Shortness of breath You feel more pain when you breathe Cough with dark-colored mucus or blood Weakness, dizziness, or fainting Fever of 100.4 F (38 C) or higher, or as directed by your healthcare provider Swelling, pain, or redness in one leg [id number] [employer]. [address] [place] [id number]. All rights reserved. This information is not intended as a substitute for professional medical care. Always follow yourhealthcare professional's instructions. Shortness of Breath (Dyspnea) Shortness of breath is the feeling that you can't catch your breath or get enough air. It is also known as dyspnea. Dyspnea can be caused by many different conditions. They include: Acute asthma attack Worsening of chronic lung diseases such as chronic bronchitis and emphysema Heart failure. This is when weak heart muscle allows extra fluid to collect in the lungs. Panic attacks or anxiety. Fear can cause rapid breathing (hyperventilation). Pneumonia, or an infection in the lung tissue Exposure to toxic substances, fumes, smoke, or certain medicines Blood clot in the lung (pulmonary embolism). This is often from a piece of blood clot in a deep vein of the leg (deep vein thrombosis) that breaks off and travels to the lungs. Heart attack or heart-related chest pain (angina) Anemia Collapsed lung (pneumothorax) Dehydration Based on your visit today, the exact cause of your shortness of breath is not certain. Your tests don t show any of the serious causes of dyspnea. You may need other tests to find out if you have a serious problem. It s important to watch for any new symptoms or symptoms that get worse. Follow up with your healthcare provider as directed. Home care Follow these tips to take care of yourself at home: When your symptoms are better, go back to your usual activities. If you smoke, you should stop. Join a quit-smoking program or ask your healthcare provider for help. Eat a healthy diet and get plenty of sleep. Get regular exercise. Talk with your healthcare provider before starting to exercise, especially ifyou have other medical problems. Cut down on the amount of caffeine and stimulants you consume. Follow-up care Follow up with your healthcare provider, or as advised. If tests were done, you will be told if your treatment needs to be changed. You can call as directed for the results. If an X-ray was taken, a specialist will review it. You will be notified of any new findings that may affect your care. Call 911 Shortness of breath may be a sign of a serious medical problem. For example, it may be a problem with your heart or lungs. Call 911 if you have worsening shortness of breath or trouble breathing, especially with any of the symptoms below: Confusion or difficulty waking Fainting or loss of consciousness. Fast or irregular heartbeat Coughing up blood Pain in your chest, arm, shoulder, neck, or upper back Sweating When to seek medical advice Call your healthcare provider right away if any of these occur: Slight shortness of breath or wheezing Redness, pain or swelling in your leg, arm, or other body area Swelling in both legs or ankles Fast weight gain Dizziness or weakness Fever of 100.4 F (38 C) or higher, or as directed by your healthcare provider [id number] [employer]. [address] [place] [address]. All rights reserved. This information is not intended as a substitute for professional medical care. Always follow yourhealthcare professional's instructions. Additional Information VACCINATE! IT SAVES LIVES! Members of the community who have not yet received the COVID-19 vaccine and would like to receive it can visit one of [facility] vaccine clinics. There are many vaccine clinic locations within the [facility]. For locations and available times, please visit www.gettheshot.coronavirus.[place].gov/. It is important to note that some COVID mobile vaccine clinics are held outdoors and may be canceled in rainy or stormy conditions. To learn more about pediatric vaccinations (ages 5-11), we invite you to visit the [facility] webpage. https://www.[facility].org/pages/9935-Wndpi-Kvvafatazml-Bctitbmxbt-Gppxi-Doa stions.htmlTo learn more about the COVID-19 vaccine, we invite you to visit the CDC website for a list of frequently asked questions. https://www.cdc.gov/coronavirus/2019-ncov/vaccines/faq.html [facility] Patient Portal Access Instructions: Stay connected with your healthcare team and access your personal medical information anytime with the [facility] Patient Portal. If you would like a full copy of your medical records please contact the [facility] Medical Records Department Monday through Monday between 8a.m. and 4:30p.m. Please follow the directions below to access the portal: 1.Access the email account you provided upon registration to the [facility].2.Look for an invitation email from [facility].3.Open the email and access the invitation link: Accept Invitation to [facility]4.Fill in the required rose to create your account. Sign into [email or web address] with your username and password that you created in the above steps to stay up to date. You can then view a summary of results, a summary of your visits, and the ability to download your summaries to your computer or send the information securely to a physician. Remember that your healthcare information is confidential, so carefully consider who you will allow to register on the [facility] Patient Portal for access to your information. You can also access the [facility] Patient Portal on the [employer] germain. Simply click on Health Records under [employer] and then click on the [facility] logo. HOW TO SAFELY DISPOSE OF PRESCRIPTION MEDICATIONS Please use one of the following methods to safely dispose of your unused medications. 1.Use a drug disposal kit: the drug disposal pouch allows you to safely discard your old and unuseddrugs. Ask your nurse to give you one when you are discharged.2.Visit a local take-back location: Many local pharmacies and police departments have programs that collect old and unwanted prescriptiondrugs. Call your local pharmacy or go to http://bit.Texxi/3Q1Dm8x to find one close to you.3.Make use of household items: Use cat litter or old coffee grounds to dispose medications if other options arenot available. Mix your drugs with these household products, seal them in an airtight container andthrow it into the garbage. Call [facility]: [phone] to be sure your drugs can be disposed of in this way. Some medicines may require a different approach.4.Never flush your medications down the toilet. IF YOU HAVE BEEN PRESCRIBED AN OPIOIDS FOR PAIN If you have been prescribed an opioid (such as hydrocodone, oxycodone or morphine), it is critical to understand the possible side effects and risks of opioid pain medications. Even when taken as directed, opioids can have several side effects including: Tolerance, meaning you might need to take more of a medication for the same pain relief. Nausea, vomiting and/or constipation. Sleepiness, dizziness, dry mouth, confusion, depression or itching. Physical dependence, meaning you have withdrawal symptoms when a medication is stopped ? this can develop within a few days. KNOW YOUR RESPONSIBILITIES It is important to know exactly how much and how often to take the opioid pain medications you are prescribed. Never take opioids in higher amounts or more often than prescribed. Do not combine opioids with alcohol or other drugs that cause drowsiness, such as benzodiazepines, also known as benzos,including diazepam and alprazolam, muscle relaxants or sleep aids. Never sell or share prescriptionopioids. This is illegal. Store opioids in a secure place and out of reach of others (including children, family, friends and visitors). The last page(s) of this document has been signed and retained as a CHART COPY Signatures Patient Education Materials Chest Pain, Noncardiac Shortness of Breath (Dyspnea) Medication Leaflets My discharge plan and instructions have been reviewed and explained to me and I,DEANDRA MCCRAY understand my current condition and have read and understand these discharge instructions. I have received a written copy of the plan/instructions. If I have questions, I am aware that I should contactmy doctor. Patient/Kiln Drawer Signature: Date/Time: Relationship to Patient: Witness Name/Signature: Date/Time: [facility]02-06-2024 Note ORIGINAL EXAMINATION: ONE XRAY VIEW OF THE CHEST08/01/2023 4:57 pm COMPARISON: 06/04/2022 HISTORY: ORDERING SYSTEM PROVIDED HISTORY: Reason for Exam: chest pain FINDINGS: The cardiomediastinal silhouette is unchanged. No focal pulmonary consolidation, pneumothorax, or large pleural effusion visualized. No acute osseous abnormalities identified. IMPRESSION: No acute radiographic abnormality identified. I have personally reviewed the images of this examination and agree with the resident's findings and interpretation. Interpreted by: Jose Luis Melchor Preliminary Report By: Jerrell Harkins Electronically signed By Jose Luis Melchor Dictated Date: 08/01/2023 5:01:14 PM Prelim Date: 08/01/2023 5:06:56 PM Sign Date: 08/01/2023 5:11:51 PM [facility]ing [facility] Sinus rhythm Electronic Signature: JOVON CAZARES MD 08/01/2023 16:49:36[facility] 02-05-2024 Evaluation + Plan note Future Appointments Future Scheduled Tests Laboratory* Complete Blood Count 07/31/23 [facility] 02-05-2024 Evaluation + Plan note Future Scheduled Tests Laboratory* Complete Blood Count 07/31/23 Radiology* MA Mammo Screening Bilateral w/ Kyle 01/18/24 [facility] 12-18-2023 Note ORIGINAL EXAMINATION: ONE SUPINE XRAY VIEW(S) OF THE ABDOMEN 06/12/2023 9:51 am COMPARISON: None. HISTORY: ORDERING SYSTEM PROVIDED HISTORY: Reason for Exam: chronic constipation FINDINGS: The bowel gas pattern is within normal limits. No evidence of free intraperitoneal air or obstruction. No pathologic calcifications are identified. Tubal ligation clip seen overlying the left hemipelvis. IMPRESSION: No acute intra-abdominal process. Interpreted by: Saul Granados MD Preliminary Report By: Saul Granados MD Electronically signed By Saul Granados MD Dictated Date: 06/12/2023 10:11:34 AM Prelim Date: 06/12/2023 10:11:54 AM Sign Date: 06/12/2023 10:11:54 AM Ordering [facility] [id number] History of Present illness Narrative* Breanne Bowden PA-C - 06/07/2023 11:11 AM EST CHIEF COMPLAINT: Patient presents with: Constipation: Still having pain and gas HPI Deandra Mccray is a 37 year old female here today for Constipation (Still having pain and gas). Seen last for chronic constipation, GERD. Started on Protonix 40 mg daily, lactulose. Recently seen by [facility], s/p partial hysterectomy, right sided oopharectomy for large ovarian cyst 04/2023. Includes she was told she had embedded clips during lap procedure. Has follow up with Dr. Hadley next week.Reports since pelvic pains have overall been under control. Some mild persistent RLQ aching, improved with BM. Bms are now every other day, constipated to formed, dark in color. Has stopped Protonix/lactulose on her own due to S/Es of increased nausea. Weight is stable. Denies fevers, emesis. EGD/Colon 2019 CONVERTED FINAL DIAGNOSIS 1. Antrum, biopsy (A) - Gastric antral mucosa with dilated mucosal capillaries, intramucosal hemorrhage and epithelial reactive changes. See comment. 2. Random colon, biopsy (B) - Colonic mucosa with no diagnostic alteration. SH/glw 04/23/2020 OV 02/2023 Deandra Mccray is a 37 year old female who presents for Abdominal Pain (Pain more on the right side.). Has MRI pelv scheduled per SURGICAL ORDERLY 03/15. Admits to chronic GI complaints for years. Lower abd pain will improve with a BM. Bms are every 3 weeks, altered consistency, mostly watery, intermittent anal bleeding, rectal pain when straining. Has tried daily Miralax, fiber powders, w/o improvement. Last BM was 2 days ago. Feels as though GI sx are worsened recently. Admits to regular heartburn,has not tried any alleviating measures. Will take Naproxen due to migraines, a few times per week. Denies weight loss, emesis. Current Outpatient Medications Medication Sig topiramate (TOPAMAX) 100 mg tablet take 1 tablet by mouth at bedtime nortriptyline (PAMELOR) 10 mg capsule Take 1 capsule by mouth daily at bedtime. ondansetron (ZOFRAN) 4 mg tablet Take 4 mg by mouth every 8 hours as needed. pantoprazole DR (PROTONIX) 40 mg tablet Take 1 tablet by mouth once daily. On empty stomach at least 30 minutes before eating. lactulose 20 gram/30 mL solution take 30 milliliters by mouth once daily Surgical Lubricant Jelly gel For MRI Female Pelvis, MRI department to provide. Administer intra-vaginal Surgilube immediately prior the MRI procedure (total amount to patient toleranace). naproxen (NAPROSYN) 500 mg tablet Take 1 tablet by mouth as needed for pain (for pain). rimegepant (NURTEC ODT) 75 mg disintegrating tablet Take 1 tablet by mouth once daily as needed. aspirin 81 mg cap Take 1 capsule by mouth. No current facility-administered medications for this visit. 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 Leg pain, bilateral 04/26/2021 PFO (patent foramen ovale) 09/26/2011 TIA (transient ischemic attack) 09/28/2012 Tobacco use disorder PAST SURGICAL HISTORY Procedure Laterality Date CATH & SALINE/CONTRAST SONOHYSTER/HYSTEROSALPI 2003 DELIVERY ONLY 03/25/06-baby C/S, low cervical 15 WEEK GESTATION BABY DELIVERY ONLY 2009 , low transverse DELIVERY ONLY 05/17/2011 , low transverse COLONOSCOPY FLX DX W/COLLJ SPEC WHEN PFRMD 12/19/2012 Colonoscopy COLONOSCOPY FLX DX W/COLLJ SPEC WHEN PFRMD 04/22/2020 Colonoscopy COLPOSCOPY CERVIX UPPER/ADJACENT VAGINA 2008 Colposcopy CONIZATION CERVIX W/WO D&C RPR ELTRD EXC 2008 LEEP-Cervix ESOPHAGOGASTRODUODENOSCOPY TRANSORAL DIAGNOSTIC 12/19/2012 EGD ESOPHAGOGASTRODUODENOSCOPY TRANSORAL DIAGNOSTIC 04/22/2020 EGD EXT HYSTERECTOMY,W/PARTIAL VAGINECTO 05/29/2023 INSERTION OF IUD 06/24/2013 LAPS ABD PRTM&OMENTUM DX W/WO SPEC BR/WA SPX 2006 Laparoscopy X2 Endometriosis LAPS ABD PRTM&OMENTUM DX W/WO SPEC BR/WA SPX 2007 Laparoscopy LIG/TRNSXJ FLP TUBE ABDL/VAG APPR UNI/BI 05/17/2011 Tubal ligation PAST SURGICAL HISTORY OF 2000 SCALP LESION FAMILY HISTORY Problem Relation Age of Onset other (OVARIAN REMNANT SYNDROME) Mother age 52 pulmonary other (SLE) Mother Hypertension Mother Hyperlipidemia Mother Stroke Mother Heart Failure Mother COPD Mother Coronary Artery Disease Father age 58 MVA (motorcycle) Hypertension Father Hyperlipidemia Father Diabetes Father Developmental problem Sister MENTAL RETARDATION/SEXUAL ADDICTION Heart Maternal Grandmother ENLARGED HEART Cancer Maternal Grandfather LUNG Heart Maternal Grandfather [place] Diabetes Maternal Grandfather Heart Paternal Grandfather [place] Stroke Paternal Grandfather Diabetes Paternal Grandfather Heart Other MGGM ENLARGED HEART Aneurysm No Family History REVIEW OF SYSTEMS Review of Systems Constitutional: Positive for activity change, appetite change, chills and fatigue. Respiratory: Positive for cough. Cardiovascular: Positive for chest pain. Gastrointestinal: Positive for abdominal pain, constipation and nausea. Change in bowel habits, Gas All other systems reviewed and are negative. PHYSICAL EXAM BP 110/68 Pulse 84 Ht 162.6 cm (5' 4) Wt 62.1 kg (137 lb) LMP 07/06/2022 (Approximate) BMI 23.52 kg/m Physical Exam Constitutional: General: She is not in acute distress. Appearance: Normal appearance. She is normal weight. She is not ill-appearing, toxic-appearing or diaphoretic. HENT: Head: Normocephalic and atraumatic. Nose: Nose normal. Eyes: General: No scleral icterus. Right eye: No discharge. Left eye: No discharge. Extraocular Movements: Extraocular movements intact. Conjunctiva/sclera: Conjunctivae normal. Pupils: Pupils are equal, round, and reactive to light. Cardiovascular: Rate and Rhythm: Normal rate and regular rhythm. Pulses: Normal pulses. Heart sounds: Normal heart sounds. No murmur heard. No friction rub. No gallop. Pulmonary: Effort: No respiratory distress. Breath sounds: Normal breath sounds. No stridor. No wheezing, rhonchi or rales. Chest: Chest wall: No tenderness. Abdominal: General: Abdomen is flat. Bowel sounds are normal. There is no distension. Palpations: Abdomen is soft. There is no mass. Tenderness: There is abdominal tenderness (Mild TTP RLQ). There is no right CVA tenderness, left CVA tenderness, guarding or rebound. Hernia: No hernia is present. Musculoskeletal: General: Normal range of motion. Cervical back: Normal range of motion and neck supple. Skin: General: Skin is warm and dry. Neurological: General: No focal deficit present. Mental Status: She is alert and oriented to person, place, and time. Psychiatric: Mood and Affect: Mood normal. Behavior: Behavior normal. Assessment/Plan (K59.09) Chronic constipation (primary encounter diagnosis) (R10.2, G89.29) Chronic pelvic pain in female (K44.9, K21.9) Hiatal hernia with GERD 1. Chronic constipation - linaCLOtide (LINZESS) 72 mcg capsule; Take 1 capsule by mouth once daily. Administer on an empty stomach. Swallow whole; DO NOT crush or chew. Dispense: 90 capsule; Refill: 2 - XR ABDOMEN 1V SUPINE; Future - CBC + DIFF; Future - COMP METABOLIC PANEL; Future - CELIAC SCREEN WITH REFLEX; Future - TSH BLD; Future - Check basic labs, KUB to assess stool burden - Lack of improvement with Miralax, fibers, Lactulose. Will start on Linzess 72 mcg daily - Pt to notify me if lack of response in 7 days - Continue plenty of fluid intake - Consider repeat colon if persistent issues with RLQ pain despite adjustment in bowel regimen 2. 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 Will [employer] message me/call me with updates after her follow up appt next wekk 3. Hiatal hernia with GERD - Previously prescribed Protonix, pt wants to hold on any further meds for this for now as she feels she has not had issues with GERD recently I spent a total of 22 minutes on the date of the service which included preparing to see the patient, [id number] patient care, completing clinical documentation, obtaining and/or reviewing separately obtained history, performing a medically appropriate examination, counseling and educating the pat ient/family/caregiver, ordering medications, tests, or procedures, communicating with other HCPs (not separately reported), independently interpreting results (not separately reported), communicatingresults to the patient/family/caregiver, and care coordination (not separately reported). Breanne Bowden PA-C June 07, 2023 11:35 AM [facility] Miscellaneous Notes* Telephone Encounter - Lilliana Coates RN - 06/01/2023 4:25 PM EST Patient has been identified by name and date of : Yes, Provider Date Time Patient phones for refill(s): Requested Prescriptions Pending Prescriptions Disp Refills topiramate (TOPAMAX) 100 mg tablet [Pharmacy Med Name: TOPIRAMATE 100 MG TABLET] 30 tablet 3 Sig: take 1 tablet by mouth at bedtime Date of last office visit in primary care: 03/10/2023 Date of next office visit in primary care: Visit date not found Last 2 Encounter Wt Readings: Date: Wt: 03/10/2023 66.7 kg (147 lb) 03/08/2023 65.3 kg (144 lb) Previous labs/tests for medication: Not applicable Please advise. Thank you. Lilliana Coates RN. documented in this encounterC[facility]12-05-2023 Miscellaneous Notes* Telephone Encounter - Soraya Cohen LPN - 05/30/2023 11:47 AM EST Received 05/30/2023 from [facility]. Placed in provider's inbox for review. Route to [place] for scanning. documented in this encounterCleveland Clinic Medina [facility]10-10-2023 Miscellaneous Notes* Telephone Encounter - Micheline Parr APRN.CNP - 04/04/2023 12:31 PM EDT This was discussed with pt at her appt yesterday. Close encounter. Micheline Parr APRN.CNP * Telephone Encounter - Deanne Ellington RN - 03/31/2023 10:43 AM EDT Patient notified and voiced understanding of below information and instructions. Patient wondering if she will need any follow up imaging. Deanne Ellington RN * Telephone Encounter - Micheline Parr APRN.CNP - 03/31/2023 10:01 AM EDT Pt does have a 5.4 cm cyst on the right ovary, this is likely the cause of her pain. She can take Ibuprofen 800mg every 6-8 hrs or the Naprosyn 500 mg 2x/day, along with Tylenol 1000 mg every 8 hrs. If she needs sometime more than that or the pain is getting worst she should go to the ED. Micheline Parr APRN.CNP * Telephone Encounter - Renata Cevallos LPN - 03/31/2023 9:24 AM EDT Patient called c/o RLQ pain that radiates into lower back that is patient describes as throbbing. States that she feels a knot in right lower abdomen. Pain worsened in past 3 days. Rates pain 7 outof 10 on pain scale. Is c/o nausea & headache. C/o frequent urination yesterday but no further issues today. Denies dysuria. Patient had mri 03/27/2023 and has virtual follow up appointment on 04/03 documented in this encounterCleveland Clinic Med[facility] Hospital10-09-2023 Instructions* Patient Instructions* Micheline Parr APRN.CNP - 04/03/2023 12:51 PM EDT You have been referred to the Chronic Pelvic Pain Program. Prior to your appointment there is a questionnaire you will need to complete, please call for the appointment. documented in this encounterCleveland Clinic Med[facility]10-09-2023 History of Present illness Narrative* Micheline Parr APRN.CNP - 04/03/2023 12:38 PM EDT VIRTUAL VISIT PROGRESS NOTE This is a virtual visit using [employer] Zoom Video Visit. It required patient- provider interaction for the medical decision making as documented below. I have communicated my name and active licensure. The patient's identity and physical location wereverified at the time of this visit. Either the patient or their legal customer development representative has been informed of the risks and benefits of -- and alternatives to -- treatment through a remote evaluation andconsents to proceed with the evaluation remotely. Deandra Mccray is a 37 year old female seen for MRI results. MRI results discussed with patient in regards of no endometriosis noted and a 5.4 right ovarian cyst. Patient still continues to have chronic pelvic pain. She is using [id number] pain relieversand heating pad. 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 Leg pain, bilateral 04/26/2021 PFO (patent foramen ovale) 09/26/2011 TIA (transient ischemic attack) 09/28/2012 Tobacco use disorder PAST SURGICAL HISTORY Procedure Laterality Date CATH & SALINE/CONTRAST SONOHYSTER/HYSTEROSALPI 2004 DELIVERY ONLY 03/25/06-baby C/S, low cervical 15 WEEK GESTATION BABY DELIVERY ONLY 2009 , low transverse DELIVERY ONLY 05/17/11 , low transverse COLONOSCOPY FLX DX W/COLLJ SPEC WHEN PFRMD 12/19/2012 Colonoscopy COLONOSCOPY FLX DX W/COLLJ SPEC WHEN PFRMD 04/22/2020 Colonoscopy COLPOSCOPY CERVIX UPPER/ADJACENT VAGINA 2008 Colposcopy CONIZATION CERVIX W/WO D&C RPR ELTRD EXC 2008 LEEP-Cervix ESOPHAGOGASTRODUODENOSCOPY TRANSORAL DIAGNOSTIC 12/19/2012 EGD ESOPHAGOGASTRODUODENOSCOPY TRANSORAL DIAGNOSTIC 04/22/2020 EGD INSERTION OF IUD 06/24/2013 LAPS ABD PRTM&OMENTUM DX W/WO SPEC BR/WA SPX 2005 Laparoscopy X2 Endometriosis LAPS ABD PRTM&OMENTUM DX W/WO SPEC BR/WA SPX 2007 Laparoscopy LIG/TRNSXJ FLP TUBE ABDL/VAG APPR UNI/BI 05/17/11 Tubal ligation PAST SURGICAL HISTORY OF 2000 SCALP LESION FAMILY HISTORY Problem Relation Age of Onset other (OVARIAN REMNANT SYNDROME) Mother age 52 pulmonary other (SLE) Mother Hypertension Mother Hyperlipidemia Mother Stroke Mother Heart Failure Mother COPD Mother Coronary Artery Disease Father age 58 MVA (motorcycle) Hypertension Father Hyperlipidemia Father Diabetes Father Developmental problem Sister MENTAL RETARDATION/SEXUAL ADDICTION Heart Maternal Grandmother ENLARGED HEART Cancer Maternal Grandfather LUNG Heart Maternal Grandfather [place] Diabetes Maternal Grandfather Heart Paternal Grandfather [place] Stroke Paternal Grandfather Diabetes Paternal Grandfather Heart Other MGGM ENLARGED HEART Aneurysm No Family History Social History Tobacco Use Smoking status: Every Day Packs/day: 1.00 Years: 24.00 Additional pack years: 0.00 Total pack years: 24.00 Types: Cigarettes Smokeless tobacco: Never Tobacco comments: 03/10- has cut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 Unchanged aspirin (aspirin 81 mg oral delayed release tablet) 1 tab(s) by mouth Once a day Unchanged buPROPion (BuPROPion (Eqv-Wellbutrin SR) 150 mg/ 12 hours oral tablet, extended release) Unchanged naproxen (naproxen 250 mg oral tablet) 1 tab(s) by mouth Two (2) times a day Unchanged topiramate (Topamax) by mouth Two (2) times a day Please take this list to your next doctor s visit. Bring all medications you take, including over the counter medications, herbals and other supplements with you to your doctor s visit. Patients and families are reminded to discard old lists and to update any records with all medication providers or retail pharmacies. Education Materials Coping with Concussion Concussion is also known as mild traumatic brain injury (MTBI). It is often caused by a blow to thehead, or a fall. You may have been unconscious for a few seconds or minutes after the injury. Or maybe you were dazed, confused, or saw stars. After this, you thought you were OK. Now, weeks or months later, you re having symptoms that may be caused by a concussion. The good news is that, in most people, these symptoms will likely go away on their own. Most people with a concussion recover fully,with no need for treatment. A cold compress can help relieve a headache. What is a concussion? A concussion is a mild form of brain injury. In some cases, the effects of a concussion go away within days of the injury. In others, symptoms may continue for a few months. Fortunately, a concussionis temporary. Even when symptoms stay for months, they do go away over time. If they don't, or if your symptoms are worse, contact your healthcare provider. Symptoms of a concussion You may have noticed some of these symptoms: Headaches Irritability and other changes in behavior Problems remembering or concentrating Dizziness or lack of coordination Fatigue Problems sleeping Sensitivity to light and sound Vision changes NOTE: If you have severe symptoms or trouble functioning, talk with your healthcare provider right away. If you had a more serious head injury than a concussion, you likely need treatment. Be sure tosee your healthcare provider for an evaluation. What you can do Since the effects of a concussion go away over time, there isn t a lot you need to do. Be assured that this problem is temporary. You ll likely have a full recovery. In the meantime, talk with your healthcare provider about ways to relieve any symptoms that are bothering you. These tips may help: Don't return to sports or any activity that could cause you to hit your head until all symptoms aregone and you have been cleared by your doctor. A second head injury before fully recovering from the first one can lead to serious brain injury. Return to normal activities of daily living and normal social interaction is encouraged to speed recovery. Stress can make symptoms worse. Help calm yourself by resting in a quiet place and imagining a peaceful scene. Relax your muscles by soaking in a hot bath or taking a hot shower. Take uqqf-ici-qnphvrb acetaminophen to relieve headache pain. Take them as directed on the package.Don't take ibuprofen or aspirin after a head injury. If you become dizzy, sit or lie down in a safe place until the sensation passes. Don t drive when you feel dizzy or disoriented. If you re having trouble sleeping, try to keep a regular sleep schedule. Go to bed and get up at the same time each day. Avoid or limit caffeine and nicotine. Also don't drink alcohol. It may help you sleep at first, but your sleep will not be restful. Give yourself time to heal. Your recovery will take some time. When you have symptoms, remember that you won t feel this way forever. In time the symptoms will go away and you ll be back to yourself. If you re not feeling better The effects of a concussion often go away in 7 to 10 days and the vast majority of people who have had a concussion have recovered after 3 months. If you re not feeling better as time passes, there may be something else going on. If your symptoms don t go away or you notice new ones, talk with yourhealthcare provider. He or she can help you get the treatment you need. [id number] [employer]. [address] [place] [address]. All rights reserved. This information is not intended as a substitute for professional medical care. Always follow yourhealthcare professional's instructions. Additional Information VACCINATE! IT SAVES LIVES! Members of the community who have not yet received the COVID-19 vaccine and would like to receive it can visit one of [facility] vaccine clinics. There are many vaccine clinic locations within the [facility]. For locations and available times, please visit www.gettheshot.coronavirus.[place].gov/. It is important to note that some COVID mobile vaccine clinics are held outdoors and may be canceled in rainy or stormy conditions. To learn more about pediatric vaccinations (ages 5-11), we invite you to visit the [facility] webpage. https://www.[facility].org/pages/6932-Gwlte-Jigqdtuyhnh-Xqkughecya-Lzijm-Lbb stions.htmlTo learn more about the COVID-19 vaccine, we invite you to visit the CDC website for a list of frequently asked questions. https://www.cdc.gov/coronavirus/2019-ncov/vaccines/faq.html [facility] Patient Portal Access Instructions: Stay connected with your healthcare team and access your personal medical information anytime with the [facility] Patient Portal. If you would like a full copy of your medical records please contact the [facility] Medical Records Department Monday through Monday between 8a.m. and 4:30p.m. Please follow the directions below to access the portal: 1.Access the email account you provided upon registration to the [facility].2.Look for an invitation email from [facility].3.Open the email and access the invitation link: Accept Invitation to [employer]4.Fill in the required rose to create your account. Sign into [email or web address] with your username and password that you created in the above steps to stay up to date. You can then view a summary of results, a summary of your visits, and the ability to download your summaries to your computer or send the information securely to a physician. Remember that your healthcare information is confidential, so carefully consider who you will allow to register on the [facility] Patient Portal for access to your information. You can also access the [facility] Patient Portal on the [employer]. Simply click on Health Records under [employer] and then click on the [employer] logo. HOW TO SAFELY DISPOSE OF PRESCRIPTION MEDICATIONS Please use one of the following methods to safely dispose of your unused medications. 1.Use a drug disposal kit: the drug disposal pouch allows you to safely discard your old and unuseddrugs. Ask your nurse to give you one when you are discharged.2.Visit a local take-back location: Many local pharmacies and police departments have programs that collect old and unwanted prescriptiondrugs. Call your local pharmacy or go to http://mParticle.Texxi/2B3Zd5e to find one close to you.3.Make use of household items: Use cat litter or old coffee grounds to dispose medications if other options arenot available. Mix your drugs with these household products, seal them in an airtight container andthrow it into the garbage. Call [facility]: [phone] to be sure your drugs can be disposed of in this way. Some medicines may require a different approach.4.Never flush your medications down the toilet. IF YOU HAVE BEEN PRESCRIBED AN OPIOIDS FOR PAIN If you have been prescribed an opioid (such as hydrocodone, oxycodone or morphine), it is critical to understand the possible side effects and risks of opioid pain medications. Even when taken as directed, opioids can have several side effects including: Tolerance, meaning you might need to take more of a medication for the same pain relief. Nausea, vomiting and/or constipation. Sleepiness, dizziness, dry mouth, confusion, depression or itching. Physical dependence, meaning you have withdrawal symptoms when a medication is stopped ? this can develop within a few days. KNOW YOUR RESPONSIBILITIES It is important to know exactly how much and how often to take the opioid pain medications you are prescribed. Never take opioids in higher amounts or more often than prescribed. Do not combine opioids with alcohol or other drugs that cause drowsiness, such as benzodiazepines, also known as benzos,including diazepam and alprazolam, muscle relaxants or sleep aids. Never sell or share prescriptionopioids. This is illegal. Store opioids in a secure place and out of reach of others (including children, family, friends and visitors). The last page(s) of this document has been signed and retained as a CHART COPY Signatures Patient Education Materials Coping with Concussion Medication Leaflets My discharge plan and instructions have been reviewed and explained to me and I,MAHENDRA DEANDRA M understand my current condition and have read and understand these discharge instructions. I have received a written copy of the plan/instructions. If I have questions, I am aware that I should contactmy doctor. Patient/Kiln Drawer Signature: Date/Time: Relationship to Patient: Witness Name/Signature: Date/Time: [facility]09-06-2023 Miscellaneous Notes* Telephone Encounter - Parker Marshall RN - 03/01/2023 3:38 PM EDT calling. Seen in [place] ER 02/25 for head injury after accident. Symptoms worsening since ER. CT completed- diagnosed with concussion and released with Zofran. Severe worsening LORENZANA, nauseas, sleeps all day, disoriented for about 15 minutes every time she wakesup-just shakes and stares at the floor. Advised returning to ER [facility] for eval. He agrees to plan. Parker Marshall RN Reason for Disposition Concussion symptoms are worsening Answer Assessment - Initial Assessment Questions 1. SYMPTOMS: What symptom are you most concerned about? Severe LORENZANA 2. OTHER SYMPTOMS: Do you have any other symptoms? (e.g., nausea, difficulty concentrating) Nausea, trouble concentrating, dizzy, eye twitching 3. ONSET / PATTERN: Are you the same, getting better, or getting worse? What's changed? Worsening 4. HEADACHE: Do you have any headache pain? If Yes, ask: How bad is it? (Scale 1-10; or mild, moderate, severe) - MILD - Doesn't interfere with normal activities - MODERATE - Interferes with normal activities (e.g., work or school) or awakens from sleep - SEVERE - Excruciating pain, unable to do any normal activities LORENZANA is severe 5. mTBI: When did your head injury happen? How did it occur? Occurred 02/24 [place]w [place] and hit head on bar on car. 6. mTBI DIAGNOSIS: Who diagnosed your concussion? 02/25- [facility] 7. mTBI TESTING: Did you have a CT scan or MRI of your head? CT done at [facility] 8. mTBI LAST VISIT: When were you seen for your head injury? Yesterday at ER 9. MEDICATIONS: Did you receive any prescription meds? If Yes, ask: What are they? Were any OTC meds recommended? Ashleyfran- has not taken it 10. FOLLOW-UP APPT: Do you have a follow-up appointment? NO Protocols used: Concussion (mTBI) Less Than 14 Days Ago Follow-up [id number] [facility] Hospital Discharge instructions Patient Education 02/25/2023 19:41:03 Head Injury (Adult) Head Injury (Adult) You have a head injury. It does not appear serious at this time. But symptoms of a more serious problem, such as a mild brain injury (concussion) or bruising or bleeding in the brain, may appear later. For this reason, you or someone caring for you will need to watch for the symptoms listed below. Once you re home, also be sure to follow any care instructions you re given. Home care Watch for the following symptoms Seek emergency medical care if you have any of these symptoms over the next hours to days: Headache Nausea or vomiting Dizziness Sensitivity to light or noise Unusual sleepiness or grogginess Trouble falling asleep Personality changes Vision changes Memory loss Confusion Trouble walking or clumsiness Loss of consciousness (even for a short time) Inability to be awakened Stiff neck Weakness or numbness in any part of the body Seizures General care If you were prescribed medicines for pain, use them as directed. Note: Don t take other medicines for pain without talking to your provider first. To help reduce swelling and pain, apply a cold source to the injured area for up to 20 minutes at atime. Do this as often as directed. Use a cold pack or bag of ice wrapped in a thin towel. Never apply a cold source directly to the skin. If you have cuts or scrapes as a result of your head injury, care for them as directed. For the next 24 hours (or longer, if instructed): oDon t drink alcohol or use sedatives or other medicines that make you sleepy. oDon t drive or operate machinery. oDon t do anything strenuous, such as heavy lifting or straining. oLimit tasks that require concentration. This includes reading, using a smartphone or computer, watching TV, and playing video games. oDon t return to sports or other activities that could result in another head injury. Follow-up care Follow up with your healthcare provider, or as directed. If imaging tests were done, they will be reviewed by a doctor. You will be told the results and any new findings that may affect your care. When to seek medical advice Call your healthcare provider right away if any of these occur: Pain doesn t get better or worsens New or increased swelling or bruising Fever of 100.4 F (38 C) or higher, or as directed by your provider Increased redness, warmth, drainage, or bleeding from the injured area Fluid drainage or bleeding from the nose or ears Any depression or bony abnormality in the injured area Persistent confusion or lethargy Bruising behind the ears or bruising around the eyes [id number] [employer]. [address] [place] [address], [place] [address]. All rights reserved. This information is not intended as a substitute for professional medical care. Always follow [facility] professional's instructions. 02/25/2023 19:41:02 Concussion Concussion A concussion is a type of brain injury. It can be caused by a direct hit or blow to the head, neck,face, or body. The force of the blow makes the head and brain shake quickly back and forth. In somecases you may lose consciousness. Depending on the severity of the blow, it will take from a few hours up to a few days to get better. Sometimes symptoms may last a few months or longer. This is called post-concussion syndrome. At first, you may have a headache, nausea, vomiting, or dizziness. You may also have problems concentrating or remembering things. This is normal. Symptoms should get better as the hours and days go by. Symptoms that get worse could be a sign of a more serious brain injury. This might be a bruise or bleeding in the brain. That s why it s important to watch for the warning signs listed below. School-age children are more at risk for symptoms that don t go away after a concussion. They should be watched very closely. Home care If your injury is mild and there are no serious signs or symptoms, your healthcare provider may recommend that you be watched at home. If there is evidence that the injury is more serious, you will be watched in the hospital. Follow these tips to help care for yourself at home: After a concussion, your healthcare provider may recommend that a family member or friend watched you for 12 to 24 hours. They may be told to wake you every few hours during sleep to check for the signs below. If your face or scalp swells, apply an ice pack for 20 minutes every 1 to 2 hours. Do this until the swelling starts to go down. To make an ice pack, put ice cubes in a plastic bag that seals at the top. Wrap the bag in a clean, thin towel or cloth. Never put ice or an ice pack directly on the skin. You may use acetaminophen to control pain, unless another pain medicine was prescribed. Don't use aspirin or ibuprofen after a head injury. If you have long-lasting (chronic) liver or kidney disease,talk with your healthcare provider before using these medicines. Also talk with your provider if you ever had a stomach ulcer or gastrointestinal bleeding. For the next 24 hours: oDon t drink alcohol or take sedatives or medicines that make you sleepy. oDon t drive or operate machinery. oDon't do anything strenuous. Don t lift or strain. Don t return right away to sports or to any activity where you could hit your head. Wait until all symptoms are gone and you have been cleared by your healthcare provider. Having a second head injurybefore you fully recover from the first one can lead to serious brain injury. After a few days, it s OK to go back to your normal daily activities. But don t do anything that could cause your head to be hit again. Follow-up care Follow up with your healthcare provider in 1 week, or as directed. A radiologist will review any X-rays or CT scans that were taken. You will be told of any new findings that may affect your care. When to seek medical advice Call your healthcare provider right away if any of these occur: Headache or dizziness that won t go away Redness, warmth, or pus from the swollen area Call 911 Call 911 or get medical care right away if any of these occur: Repeated vomiting (it s common to vomit once after a head injury) Headache or dizziness that is severe or gets worse Loss of consciousness Unusual drowsiness, or unable to wake up as usual Weakness or decreased ability to walk or move any limb Confusion, agitation, or change in behavior or speech, or memory loss Blurred vision Convulsion (seizure) Swelling on the scalp or face that gets worse Changes in pupil size (the black part of the eye) Fluid draining from or bleeding from the nose or ears [phone] [employer]. [address] [place] [address]. All rights reserved. This information is not intended as a substitute for professional medical care. Always follow yourhealthcare professional's instructions. Follow Up Care 02/25/2023 17:16:09 With:FIOR HERNANDEZ, JM MORA Address: [address] [place] [address] [place] [address] [phone] When:2-4 days With:Go to emergency room if symptoms worsen Address:Unknown When:2-4 days [facility] 09-02-2023 Note Discharge Instructions Thank you for allowing [facility] to assist you with your healthcare needs. The following is importantdischarge information regarding your hospital visit. Diagnosis from Today's Visit Concussion injury of brain Dizziness Head pain What to Do Next Instructions from Your Care Team No qualifying data available. Post Acute Orders No qualifying data available. You Need to Schedule the Following Appointments Follow Up with FIOR HERNANDEZ, JM MORA When Within 2-4 days Where: [address] [place] [address]- [phone] Follow Up with Go to emergency room if symptoms worsen When Within 2-4 days Allergies Tylenol with Codeine (Migraine) Medications Please ask your primary doctor or pharmacist before taking any other medication not listed, including over the counter drugs, herbal medications, vitamins and or supplements as they may interact withyour home medications. What How Much When Instructions Last Dose New ondansetron (Zofran 4 mg oral tablet) 1 tab(s) by mouth Every 8 hours Printed Prescription Unchanged aspirin (aspirin 81 mg oral delayed release tablet) 1 tab(s) by mouth Once a day Unchanged buPROPion (BuPROPion (Eqv-Wellbutrin SR) 150 mg/ 12 hours oral tablet, extended release) Please take this list to your next doctor s visit. Bring all medications you take, including over the counter medications, herbals and other supplements with you to your doctor s visit. Patients and families are reminded to discard old lists and to update any records with all medication providers or retail pharmacies. Education Materials Head Injury (Adult) You have a head injury. It does not appear serious at this time. But symptoms of a more serious problem, such as a mild brain injury (concussion) or bruising or bleeding in the brain, may appear later. For this reason, you or someone caring for you will need to watch for the symptoms listed below. Once you re home, also be sure to follow any care instructions you re given. Home care Watch for the following symptoms Seek emergency medical care if you have any of these symptoms over the next hours to days: Headache Nausea or vomiting Dizziness Sensitivity to light or noise Unusual sleepiness or grogginess Trouble falling asleep Personality changes Vision changes Memory loss Confusion Trouble walking or clumsiness Loss of consciousness (even for a short time) Inability to be awakened Stiff neck Weakness or numbness in any part of the body Seizures General care If you were prescribed medicines for pain, use them as directed. Note: Don t take other medicines for pain without talking to your provider first. To help reduce swelling and pain, apply a cold source to the injured area for up to 20 minutes at atime. Do this as often as directed. Use a cold pack or bag of ice wrapped in a thin towel. Never apply a cold source directly to the skin. If you have cuts or scrapes as a result of your head injury, care for them as directed. For the next 24 hours (or longer, if instructed): oDon t drink alcohol or use sedatives or other medicines that make you sleepy. oDon t drive or operate machinery. oDon t do anything strenuous, such as heavy lifting or straining. oLimit tasks that require concentration. This includes reading, using a smartphone or computer, watching TV, and playing video games. oDon t return to sports or other activities that could result in another head injury. Follow-up care Follow up with your healthcare provider, or as directed. If imaging tests were done, they will be reviewed by a doctor. You will be told the results and any new findings that may affect your care. When to seek medical advice Call your healthcare provider right away if any of these occur: Pain doesn t get better or worsens New or increased swelling or bruising Fever of 100.4 F (38 C) or higher, or as directed by your provider Increased redness, warmth, drainage, or bleeding from the injured area Fluid drainage or bleeding from the nose or ears Any depression or bony abnormality in the injured area Persistent confusion or lethargy Bruising behind the ears or bruising around the eyes [id number] [employer]. [address] [place], [place] [id number]. All rights reserved. This information is not intended as a substitute for professional medical care. Always follow yourhealthcare professional's instructions. Concussion A concussion is a type of brain injury. It can be caused by a direct hit or blow to the head, neck,face, or body. The force of the blow makes the head and brain shake quickly back and forth. In somecases you may lose consciousness. Depending on the severity of the blow, it will take from a few hours up to a few days to get better. Sometimes symptoms may last a few months or longer. This is called post-concussion syndrome. At first, you may have a headache, nausea, vomiting, or dizziness. You may also have problems concentrating or remembering things. This is normal. Symptoms should get better as the hours and days go by. Symptoms that get worse could be a sign of a more serious brain injury. This might be a bruise or bleeding in the brain. That s why it s important to watch for the warning signs listed below. School-age children are more at risk for symptoms that don t go away after a concussion. They should be watched very closely. Home care If your injury is mild and there are no serious signs or symptoms, your healthcare provider may recommend that you be watched at home. If there is evidence that the injury is more serious, you will be watched in the hospital. Follow these tips to help care for yourself at home: After a concussion, your healthcare provider may recommend that a family member or friend watched you for 12 to 24 hours. They may be told to wake you every few hours during sleep to check for the signs below. If your face or scalp swells, apply an ice pack for 20 minutes every 1 to 2 hours. Do this until the swelling starts to go down. To make an ice pack, put ice cubes in a plastic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 Leg pain, bilateral 04/26/2021 PFO (patent foramen ovale) 09/26/2011 TIA (transient ischemic attack) 09/28/2012 Tobacco use disorder PAST SURGICAL HISTORY Procedure Laterality Date CATH & SALINE/CONTRAST SONOHYSTER/HYSTEROSALPI 2003 DELIVERY ONLY 03/25/06-baby C/S, low cervical 15 WEEK GESTATION BABY DELIVERY ONLY 2009 , low transverse DELIVERY ONLY 05/17/11 , low transverse COLONOSCOPY FLX DX W/COLLJ SPEC WHEN PFRMD 12/19/2012 Colonoscopy COLONOSCOPY FLX DX W/COLLJ SPEC WHEN PFRMD 04/22/2020 Colonoscopy COLPOSCOPY CERVIX UPPER/ADJACENT VAGINA 2008 Colposcopy CONIZATION CERVIX W/WO D&C RPR ELTRD EXC 2008 LEEP-Cervix ESOPHAGOGASTRODUODENOSCOPY TRANSORAL DIAGNOSTIC 12/19/2012 EGD ESOPHAGOGASTRODUODENOSCOPY TRANSORAL DIAGNOSTIC 04/22/2020 EGD INSERTION OF IUD 06/24/2013 LAPS ABD PRTM&OMENTUM DX W/WO SPEC BR/WA SPX 2005 Laparoscopy X2 Endometriosis LAPS ABD PRTM&OMENTUM DX W/WO SPEC BR/WA SPX 2007 Laparoscopy LIG/TRNSXJ FLP TUBE ABDL/VAG APPR UNI/BI 05/17/11 Tubal ligation PAST SURGICAL HISTORY OF 2000 SCALP LESION ALLERGIES Allergen Reactions Bleach [Other] Rash Codeine GI Upset Paxil [Paroxetine H* Rash Tylenol-Codeine #3 * GI Upset Current Medications: topiramate (TOPAMAX) 25 mg tablet^25 mg(1 tab) at bed x 2 wks, then 50 mg at bed(2 tabs) x 2 wks, then 75 mg at bed(3 tabs) x 2 wks(84 TABLETS)^Disp: 84 tablet^Rfl: 0 topiramate (TOPAMAX) 100 mg tablet^Take 1 tablet by mouth daily at bedtime.^Disp: 30 tablet^Rfl: 3 rimegepant (NURTEC ODT) 75 mg disintegrating tablet^Take 1 tablet by mouth once daily as needed.^Disp: 8 tablet^Rfl: 3 aspirin 81 mg cap^Take 1 capsule by mouth.^Disp: ^Rfl: NAPROXEN ORAL^Take 500 mg by mouth as needed (for pain).^Disp: ^Rfl: Studies to Review: MRI brain W/WO 09/08/22 IMPRESSION: No acute intracranial findings. No mass or pathologic intracranial enhancement. 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 No suprasellar extension. New Health Issues: No New Social History: No New Family History: No REVIEW OF SYSTEMS: Sleep: Normal sleep pattern, 4 hours a night- work Mood: normal, Energy: Low, Stress: High GENERAL:No weight loss, malaise or fevers. HEENT:no changes to hearing or vision NECK:negative for neck pain, swelling. RESPIRATORY: Negative for cough, wheezing or shortness of breath. CARDIOVASCULAR: Negative for chest pain, leg swelling or palpitations. GASTROINTESTINAL: Negative for abdominal discomfort, blood in stools or black stools or change in bowel habits GENITOURINARY: No history of dysuria, frequency or incontinence MUSKULOSKELETAL: Negative for joint pain or swelling, back pain or muscle pain. SKIN:Negative for lesions, rash, and itching. HEMATOLOGIC/LYMPHATIC/IMMUNOLOGIC:Negative for prolonged bleeding, bruising easily or swollen nodes. ENDOCRINE: Negative for cold or heat intolerance, polyuria, polydipsia NEUROLOGIC:See HPI PHYSICAL EXAMINATION: BP 102/68 Pulse 81 Ht 162.6 cm (5' 4) Wt 67.6 kg (149 lb) LMP 07/06/2022 (Approximate) SpO2 100% BMI 25.58 kg/m General: well appearing, in no acute distress, alert, HEENT: Normocephalic/atraumatic., Skin: Color, texture, turgor normal. No rashes or lesions, Lungs: breathing comfortably, Musculoskeletal: No gross joint deformities. Neurological Examination: Cognition: The patient is alert and oriented times three Lucid and organized in conversation Able to tell detailed medical hx Speech is Normal in fluency volume and clarity Content and Syntax: Normal Comprehension: Normal, able to follow several step commands Cranial Nerves: Pupils are equal and reactive to light. Pupils normal in size Extraocular movements are grossly intact Good saccades and pursuits No nystagmus Hearing intact Good upgaze Visual rose are full to confrontation. Facial, motor and sensory exam is symmetric Equal v1,V2, V3 Tongue is in midline. No tongue fasciculation. Palate is upgoing bilaterally SCM and trapezius are full. Shoulder shrug intact Normal tone and strength. Normal coordination. DTRs are intact and symmetric bilaterally. Normal gait. Impression: ASSESSMENT/PLAN: 1. Intractable 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 - ICD9: 346.71, ICD10: G43.719 (primary diagnosis) Patient with significant improvement after starting on Topamax and using Nurtec as abortive therapy. Notes that she only gets 3 migraines a month, only on the first 3 days of her menstrual cycle. Notes that Nurtec effectively aborts her headache within minutes. However, did have significant side effects while taking it during the first weeks including severe depression and suicidal thoughts, but is unsure if this secondary to medication or intense stressors in her life. Otherwise, all of her side effects has resolved and she is back to her baseline. No change in her headaches, new new or worsening symptoms. MRI of the brain showed stable pituitary tumor, but no new acute findings. No red flag signs or symptoms that would warrant additional imaging at this time. We will continue current regimen with no changes made. 2. 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 Did refer to movement, but patient did not see the specialist. Instructed her to follow up with movement should this beconcern for her. 4. Pituitary tumor - ICD9: 239.7, ICD10: D49.7 Patient did show stable pituitary tumor on MRI imaging, did have her follow-up with her brain tumorspecialist but she was unable to see them as they canceled her appointment. Has not followed up since that time. Instructed patient that it is important to see his provider for management of her tumor. She agrees and understands. 5. 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 Patient agreeable to treatment plan of care at this time, all questions were answered. Patient to follow-up in 6 months or sooner should any symptoms change or worsen. Plan: All options for treatment discussed. Preventative: Topamax 100 mg Abortive: Nurtec 75 Follow-up: 6 months I spent a total of 30 minutes on the date of the service which included preparing to see the patient, [id number] patient care, completing clinical documentation, obtaining and/or reviewing separately obtained history, performing a medically appropriate examination, counseling and educating the pat ient/family/caregiver, and ordering medications, tests, or procedures. Karen Saul PA-C General Neurology [address] [place]. [address] Appointment: [phone] documented in this encounterC[facility]03-16-[facility]23 History of Present illness Narrative* Soraya Garcia RT(R) - 09/08/2022 3:00 PM EDT Radiology Service Progress Note DATE OF SERVICE: September 08, 2022 TIME: 3:11 PM PATIENT IDENTITY VERIFICATION COMPLETED USING TWO (2) STANDARD IDENTIFIERS: Name and Date of confirmed by patient verbally. FALL SCREENING: Has the patient had 2 falls in the last year or 1 fall with injury or currently using an Ambulatory Assistive Device (Walker, Cane, Wheelchair, Crutches, etc.)? No PATIENT GENDER DATA: Female. status: : No status: NO. PATIENT RELEVANT IMPLANT DATA REVIEWED: Yes ALLERGIES: Reviewed and unchanged CONTRAST ALLERGY: NO. EXAM: MRI - CONTRAST TYPE: GROUP II PERIPHERAL IV DATA: Ambulatory: A peripheral IV was started in the Left antecubital site with a Angio cath: 22 gauge. RADIOLOGY DEPARTMENT: MR; Exam(s) Completed: Head: Routine Brain SIGNATURE: RT David(R) PATIENT NAME: Deandra Mccray DATE: September 08, 2022 TIME: 3:11 PM documented in this encounterC[facility]02-24-2023 Miscellaneous Notes* Telephone Encounter - Dorothy Payton - 08/19/2022 4:11 PM EST CYNTHIA Diaz PA-C Future Order Information Expires 08/18/23 Associated Diagnoses 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] Comments Patient with family history of NF Reason for Exam Priority: Routine Dx: 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 (ICD-10-CM)] Comments: Patient with family history of NF Order Questions Question Answer [facility] Epic access? Yes [facility] Priority and Order Details Priority Class Routine Dede Internal Referral Detailed Information Lab Collection Information Electronic Signature Electronically signed by Electronically ordered by Name CYNTHIA Diaz PA-C Reprint Order Requisition CONSULT TO NEUROLOGY (Order #[id number]) on 08/18/22 Encounter View Encounter documented in this encounterC[facility]02-23-2023 Instructions* Patient Instructions* Karen Saul PA-C - 08/18/2022 4:56 PM EST Preventative: Topiramate taper below, supplements noted below Topamax Dosing Schedule Take at bedtime Increase dose every 2 weeks until goal dose of 100 mg Stop at any dose that reasonably treats headache Week 1-2: 25 mg each evening (1 tab) Week 3-4: 50 mg each evening (2 tabs) Week 5-6: 75 mg each evening (3 tabs) VACUUM BOTTLE ASSEMBLER NEW SCRIPT 100 mg each evening (1 tab) Potential side effects: numbness and tingling, kidney stones (calcium phosphate) word finding difficulties and other cognitive side effects, loss off appetite, change in taste with sodas or reversible glaucoma. . If you develop numbness and tinglng , buy Potassium 99 mg over the counter and use 1 or 2 /day. Abortive: Nurtec (will get this approved through insurance) take one with start of migraine MRI brain with and without contrast Consult to movement specialist Consult to neuro oncology Follow up in 3 months Headache Preventive Treatment: Please keep in mind that it takes 4-6 weeks for the medication to start working well and 2-3 monthsat the appropriate dose before deciding if it will be useful or not. If it is not helping at all bythis time, then we will discuss other medications to try. Supplements may take 3-6 months until yousee full effect. Natural supplements: Magnesium Oxide 500 mg at bed Coenzyme Q10 300 mg in AM Vitamin B2- 200 mg twice a day Feverfew 50 mg twice a day Vitamins and herbs that show potential Magnesium: Magnesium (250 mg twice a day or 500 mg at bed) has a relaxant effect on smooth muscles such as blood vessels. Individuals suffering from frequent or daily headache usually have low magnesium levels which can be increase with daily supplementation of 400-750 mg. Three trials found 40-90%average headache reduction when used as a preventative. Magnesium also demonstrated the benefit in menstrually related migraine. Magnesium is part of the messenger system in the serotonin cascade andit is a good muscle relaxant. It is also useful for constipation which can be a side effect of other medications used to treat migraine. Good sources include nuts, whole grains, and tomatoes. Magnesium comes in many different forms: Magnesium glycinate is a good choice for those with a sensitive stomach who have gastrointestinal side effects such as diarrhea with other forms of magnesium. It is anecdotally also helpful with anxiety and sleep. Magnesium threonate also has low risk of gastrointestinal side effects and anecdotally helpful with cognitive function and brain fog symptoms. Magnesium malate has low gastrointestinal side effects and is reportedly more energizing and anecdotally often helpful in fibromyalgia and chronic fatigue syndrome. Magnesium citrate is one of the most studied, popular, and well-absorbed forms of magnesium. It can also be mixed easily with liquids if you can't take pills. However, it comes with a higher risk of diarrhea and gastrointestinal side effects, although this could be helpful forthose with constipation. Magnesium oxide is also well studied, cheap, and often used for heartburn and indigestion. However, it is not well absorbed and can have some laxative side effects as well, so can also be helpful for constipation. Riboflavin (vitamin B 2) 200 mg twice a day. This vitamin assists nerve cells in the production of ATP a principal energy storing molecule. It is necessary for many chemical reactions in the body. There have been at least 3 clinical trials of riboflavin using 400 mg per day all of which suggested that migraine frequency can be decreased. All 3 trials showed significant improvement in over half ofmigraine sufferers. The supplement is found in bread, cereal, milk, meat, and poultry. Most Americans get more riboflavin than the recommended daily allowance, however riboflavin deficiency is not necessary for the supplements to help prevent headache. Feverfew: Feverfew is a common garden herb [place] to [place] and popular in [facility] as a treatment for disorders typically controlled by aspirin. The mechanism of action is unknown but is believed to be related to a chemical called parthenolide which helps the body use serotonin more effectively. Serotonin helps prevent migraine and assists with resolution when it occurs. Parthenolide also inhibits the release of histamine which is linked to pain and inflammation. Consistency of active ingredients in different products can be a problem. Some formulations don't have the active ingredient (parthenolide) that prevents migraine. A parthenolide content of 0.2% is generally recommended. Typical dosage is one capsule 3 times a day. Coenzyme Q10: This is present in almost all cells in the body and is critical component for the conversion of energy. Recent studies have shown that a nutritional supplement of CoQ10 can reduce the frequency of migraine attacks by improving the energy production of cells as with riboflavin. Doses of 150 mg twice a day have been shown to be effective. Melatonin: Increasing evidence shows correlation between melatonin secretion and headache conditions. Melatonin supplementation has decreased headache intensity and duration. It is widely used as a sleep aid. Sleep is natures way of dealing with migraine. A dose of 3 mg is recommended to start for headaches including cluster headache. Higher doses up to 15 mg has been reviewed for use in Cluster headache and have been used. The rationale behind using melatonin for cluster is that many theories regarding the cause of Cluster headache center around the disruption of the normal circadian rhythm in the brain. This helps restore the normal circadian rhythm. Sridevi: Sridevi has a small amount of antihistamine and anti-inflammatory action which may help headache. It is primarily used for nausea and may aid in the absorption of other medications. HEADACHE DIET: Foods and beverages which may trigger migraine Note that only 20% of headache patients are food sensitive. You will know if you are food sensitiveif you get a headache consistently 20 minutes to 2 hours after eating a certain food. Only cut out a food if it causes headaches, otherwise you might remove foods you enjoy! What matters most for diet is to eat a well balanced healthy diet full of vegetables and low fat protein, and to not miss meals. Chocolate, other sweets ALL cheeses except cottage and cream cheese Dairy products, yogurt, sour cream, ice cream Liver Meat extracts (Bovril, Marmite, meat tenderizers) Meats or fish which have undergone aging, fermenting, pickling or smoking. These include: Hotdogs,salami,Lox,sausage, mortadellas,smoked salmon, pepperoni, Pickled murphy Pods of broad conrad (Filipino beans, Kazakh pea pods, Japanese (lizeth) beans, lora and navy beans Ripe avocado, ripe banana Yeast extracts or active yeast preparations such as Taylor's or Iraj's (commercial bakes goodsare permitted) Tomato based foods, pizza (lasagna, etc.) MSG (monosodium glutamate) is disguised as many things; look for these common aliases: Monopotassium glutamate Autolysed yeast Hydrolysed protein Sodium caseinate flavorings all natural preservatives Nutrasweet Avoid all other foods that convincingly provoke headaches. Headache Prevention Strategies: 1. Maintain a headache diary; learn to identify and avoid triggers. Common triggers include: Emotional triggers: Emotional/Upset family or friends Emotional/Upset occupation Business reversal/success Anticipation anxiety Crisis-serious Post-crisis periodNew job/position Physical triggers: Vacation Day Weekend Strenuous Exercise High Altitude Location New Move Day Physical Illness Oversleep/Not enough sleep Weather changes Light: Photophobia or light sesnitivity treatment involves a balance between desensitization and reduction in overly strong input. Use dark polarized glasses outside, but not inside. Avoid bright or fluorescent light, but do not dim environment to the point that going into a normally lit room hurts. Consider FL- 41 tint lenses, which reduce the most irritating wavelengths without blocking too muchlight. These can be obtained at [employer] or [employer]: see list above. 2. Limit use of acute treatments (bzdl-tvx-bobuzug medications, triptans, etc.) to no more than 2 days per week or 10 days per month to prevent medication overuse headache (rebound headache). 3. Follow a regular schedule (including weekends and holidays): Don't skip meals. Eat a balanced diet. 8 hours of sleep nightly. Minimize stress. Exercise 30 minutes per day. Being overweight is associated with a 5 times increased risk of chronic migraine. Keep well hydrated and drink 6-8 glasses of water per day. 4. Initiate non-pharmacologic measures at the earliest onset of your headache. Rest and quiet environment. Relax and reduce stress. Brdosmr5Yjsew is a free germain that can instruct you on some simple relaxtionand breathing techniques. Http://GiveSurance is a free website that provides teaching videos on relaxation. Also, there are many apps that can be downloaded for mindful relaxation. An germain called YOGA NIDRA will help walk you through mindfulness. Cold compresses. 5. Don't wait!! Take the maximum allowable dosage of prescribed medication at the first sign of migraine. 6. Compliance: Take prescribed medication regularly as directed and at the first sign of a migraine. 7. Communicate: Call your physician when problems arise, especially if your headaches change, increase in frequency/severity, or become associated with neurological symptoms (weakness, numbness, slurred speech, etc.). 8. Headache/pain management therapies: Consider various complementary methods, including medication, behavioral therapy, psychological counselling, biofeedback, massage therapy, acupuncture, dry needling, and other modalities. Such measures may reduce the need for medications. Counseling for pain ma nagement, where patients learn to function and ignore/minimize their pain, seems to work very well. 9. Recommend changing family's attention and focus away from patient's headaches. Instead, emphasize daily activities. If first question of day is 'How are your headaches/Do you have a headache today?', then patient will constantly think about headaches, thus making them worse. Goal is to re-directattention away from headaches, toward daily activities and other distractions. 10. Helpful Websites: www.AmericanHeadacheSociety.org www.migrainetrust.org www.headaches.org www.migraine.org.uk www.achenet.org 11. HEADACHE EXPECTATIONS: There are many types of headaches, and only a rare few in which complete relief can be expected. Ingeneral, there is no cure for headache, especially migraine based headaches. There is nothing available that completely prevents headaches from occurring, breaking through, or having periodic flare-ups and fluctuations. Regardless of what you are using on a daily basis for prevention, episodic heada ches should still be expected, and periods where frequency may escalate and fluctuate are unavoidable. There is no quick fix for most headaches. Furthermore, the longer you have had high frequency headaches (such as chronic daily headache), the longer it will likely take to expect any improvement. In fact, some people will never improve, regardless of how many medications or other treatments we try.Our treatment strategy is to evaluate for possible causes of your headache, although testing is usually always normal, even in cases of daily continuous headaches for years. Most types of headache such as migraine are electrical brain disorders (similar to how epilepsy is an electrical brain disorders). Therefore, there is no testing that will reveal this dysfunctional electrical circuitry suchon MRI, or other testing. We try to find a medication that may help lessen the frequency and/or severity of your headaches. The goal is not to completely stop them from happening, although if that happens, great! Different people respond to different medications, and some people just don't respond to anything, so it's usually a matter of trying different options. We can not predict if or when exac tly you will respond to a treatment that we provide. Preventive headache medications take 4-6 weeks to start working, and 2-3 months to see full effect,assuming you reach an effective dose. Therefore, calling or messaging frequently because you have aheadache flare prior to the 3 month kaci is unlikely to change anything, and unfortunately there isnothing available that will expedite this, so please try to avoid this. Our recommendation will gene rally be to give it adequate time first. If you are unable to wait it out for medications to work, we can also try IV infusions for some temporary relief. O In general, the best that preventive medications or other treatments (including Botox) are able to offer in migraine management (variable in other headache types) is a 50% improvement in frequency and/or severity of headache. That is our goal, and any additional benefit is considered a bonus. Some people do significantly better than this, others do not get close to this. Therefore, if your headaches are not improving by at least 3 months on your preventive strategy, contact us and we can discuss further adjustments. Keep in mind that complete headache cure is not a realistic expectation. Our Team: The nursing staff, and medical assistants are a major part of YOUR TREATMENT TEAM and will be handling your phone calls, Lion Streett Messages and inquiries, if any. Unless explicitly told otherwise at the time of your office visit, your study results and ensuing treatment plans will be released via My Hood and discussed during your follow-up appointment. MyChart: Please ask the schedulers to give you an activation code. The main way of communication isby [employer] rather than phone lines, so if you have not signed up, please do so. My Hood is also theway that you can review your labs and testing. We are not able to contact everyone to tell them results are normal. If you do not hear back from us regarding testing you have had, it should be considered normal or within normal range. If you have any questions about the results, you are free to message us. My Hood is meant for simple questions regarding medications, possible side effects, or other simplestraight forward questions in limited sentences, rather than multiple paragraphs of discussion. My Hood is not meant for, or efficient for these complex questions, extensive questions, extensive medication adjustments, complex new symptoms or concerns. These issues beyond simple questions require afollow up visit with myself, one of our physician assistants, nurse practitioners, or a Virtual Visit via computer or smart phone, as detailed further down. Refills: Please pay attention to when your refills will need to be renewed. Due to the volume of phone callsdaily, this could potentially take a few days, although we certainly try to honor your refill requests as soon as we can. You should call at least 1 week in advance of needing a refill to ensure you do not run out of medication. Keep in mind that refill requests on Fridays may not be filled until the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 2) If CRUTCHES have been advised, do not bear full weight on the injured leg until you can do so without pain. You may return to sports when you are able to hop and run on the injured leg without pain. 3) Apply an ice pack (ice cubes in a plastic bag, wrapped in a towel) over the injured area for 20 minutes every 1-2 hours the first day for pain relief. Continue this 3-4 times a day until the pain and swelling goes away. 4) You may use acetaminophen (Tylenol) or ibuprofen (Motrin, Advil) to control pain, unless anotherpain medicine was prescribed. [ NOTE : If you have chronic liver or kidney disease or ever had a stomach ulcer or GI bleeding, talk with your doctor before using these medicines.] Follow Up with your doctor or this facility if you are not starting to improve within the next THREE days. [NOTE: If X-rays were taken, they will be reviewed by a radiologist. You will be notified of any new findings that may affect your care.] Get Prompt Medical Attention if any of the following occur: -- Pain or swelling increases -- Toes become cold, blue, numb or tingly -- Redness, warmth or drainage from the skin [phone] [employer]. [address] [place] [address], [place] [address]. All rights reserved. This information is not intended as a substitute for professional medical care. Always follow yourhealthcare professional's instructions. Additional Information VACCINATE! IT SAVES LIVES! Members of the community who have not yet received the COVID-19 vaccine and would like to receive it can visit one of [facility] vaccine clinics. There are many vaccine clinic locations within the [facility]. For locations and available times, please visit [email or web address]. It is important to note that some COVID mobile vaccine clinics are held outdoors and may be canceled in rainy orstormy conditions. To learn more about pediatric vaccinations (ages 5-11), we invite you to visit the [facility] webpage. [email or web address] [email or web address] learn more about the COVID-19 vaccine, we invite you to visit the [facility] website for a list of frequently asked questions. [email or web address] _[email or web address]-Questions.[email or web address] [facility] Patient Portal Access Instructions: Stay connected with your healthcare team and access your personal medical information anytime with the [facility] Patient Portal. If you would like a full copy of your medical records please contact the [facility] Medical Records Department Monday through Monday between 8a.m. and 4:30p.m. Please follow the directions below to access the portal: 1.Access the email account you provided upon registration to the hospital.2.Look for an invitation email from [facility].3.Open the email and access the invitation link: Accept Invitation to [facility]4.Fill in the required rose to create your account. Sign into [email or web address] with your username and password that you created in the above steps to stay up to date. You can then view a summary of results, a summary of your visits, and the ability to download your summaries to your computer or send the information securely to a physician. Remember that your healthcare information is confidential, so carefully consider who you will allow to register on the [facility] Patient Portal for access to your information. You can also access the [facility] Patient Portal on the The car easily beat. Simply click on Health Records under [employer] and then click on the [facility] logo. HOW TO SAFELY DISPOSE OF PRESCRIPTION MEDICATIONS Please use one of the following methods to safely dispose of your unused medications. 1.Use a drug disposal kit: the drug disposal pouch allows you to safely discard your old and unuseddrugs. Ask your nurse to give you one when you are discharged.2.Visit a local take-back location: Many local pharmacies and police departments have programs that collect old and unwanted prescriptiondrugs. Call your local pharmacy or go to http://mParticle.Texxi/1P3Hw3u to find one close to you.3.Make use of household items: Use cat litter or old coffee grounds to dispose medications if other options arenot available. Mix your drugs with these household products, seal them in an airtight container andthrow it into the garbage. Call [facility]: [phone] to be sure your drugs can be disposed of in this way. Some medicines may require a different approach.4.Never flush your medications down the toilet. IF YOU HAVE BEEN PRESCRIBED AN OPIOIDS FOR PAIN If you have been prescribed an opioid (such as hydrocodone, oxycodone or morphine), it is critical to understand the possible side effects and risks of opioid pain medications. Even when taken as directed, opioids can have several side effects including: Tolerance, meaning you might need to take more of a medication for the same pain relief. Nausea, vomiting and/or constipation. Sleepiness, dizziness, dry mouth, confusion, depression or itching. Physical dependence, meaning you have withdrawal symptoms when a medication is stopped ? this can develop within a few days. KNOW YOUR RESPONSIBILITIES It is important to know exactly how much and how often to take the opioid pain medications you are prescribed. Never take opioids in higher amounts or more often than prescribed. Do not combine opioids with alcohol or other drugs that cause drowsiness, such as benzodiazepines, also known as benzos,including diazepam and alprazolam, muscle relaxants or sleep aids. Never sell or share prescriptionopioids. This is illegal. Store opioids in a secure place and out of reach of others (including children, family, friends and visitors). The last page(s) of this document has been signed and retained as a CHART COPY Signatures Patient Education Materials CONTUSION, Lower Extremity Medication Leaflets My discharge plan and instructions have been reviewed and explained to me and I,DEANDRA MCCRAY M understand my current condition and have read and understand these discharge instructions. I have received a written copy of the plan/instructions. If I have questions, I am aware that I should contactmy doctor. Patient/Kiln Drawer Signature: Date/Time: Relationship to Patient: Witness Name/Signature: Date/Time: [facility]02-09-2023 Note ORIGINAL EXAMINATION: THREE XRAY VIEWS OF THE RIGHT TOE(S) 08/04/2022 11:33 am COMPARISON: None. HISTORY: ORDERING SYSTEM PROVIDED HISTORY: Reason for Exam: pain FINDINGS: Acute fracture or dislocation. Normal osseous mineralization. No visible aggressive osseous lesion. Included joint spaces are maintained. No visible radiopaque foreign body. IMPRESSION: 1. No acute osseous abnormalities. Interpreted by: Haris Adan DO Preliminary Report By: Haris Adan DO Electronically signed By Haris Adan DO Dictated Date: 08/04/2022 11:50:21 AM Prelim Date: 08/04/2022 11:51:23 AM Sign Date: 08/04/2022 11:51:23 AM Ordering Provider: JERRELL MANUEL [facility]02-09-2023 Note ORIGINAL EXAMINATION: THREE XRAY VIEWS OF THE RIGHT TOE(S) 08/04/2022 11:33 am COMPARISON: None. HISTORY: ORDERING SYSTEM PROVIDED HISTORY: Reason for Exam: pain FINDINGS: Acute fracture or dislocation. Normal osseous mineralization. No visible aggressive osseous lesion. Included joint spaces are maintained. No visible radiopaque foreign body. IMPRESSION: 1. No acute osseous abnormalities. Interpreted by: Haris Adan DO Preliminary Report By: Haris Adan DO Electronically signed By Haris Adan DO Dictated Date: 08/04/2022 11:50:21 AM Prelim Date: 08/04/2022 11:51:23 AM Sign Date: 08/04/2022 11:51:23 AM Ordering [facility] History of Present illness Narrative* Stephenie Hill - 08/03/2022 3:07 AM EST Sleep Study Check-In Documentation Date: August 03, 2022 Name: Deandra Mccray Patient was accompanied by Self. Location: [place] Latex allergy: No Tape allergy: No Current medications were reviewed with the patient:Yes Sleep aid taken by patient for the sleep study: [place] of sleep aid: Not Applicable Procedure was explained to the patient and all questions were answered. PAP treatment discussed and shown to patient: Yes Knowledge Program (KP): KP was not completed in epic by patient and accepted Study type: Polysomnogram Adverse Event: No (If yes create a new abstract) Comments: Patient was advised to follow up with their ordering provider regarding test results Stephenie Hill * Ag Rae III, PhD - 07/19/2022 12:26 PM EST July 19, 2022 Standing PSG Orders signed in the last 90 days None Future PSG Orders signed in the last 90 days Ordered Auth. provider POLYSOMNOGRAM (PSG) [[id number]] 07/13/22 Jm Childress MD Assoc. diagnoses: Fatigue, unspecified type [R53.83], Breathing problem [R06.9], Chronic insomnia [F51.04] Q: Indications - Select All That Apply: A: Central sleep apnea Q: Comorbidities: A: NONE Q: Is the patient non-ambulatory or will they be accompanied by a caregiver?: A: No Q: Current use of supplemental oxygen during sleep period?: A: No Q: Add supplemental oxygen if needed per sleep lab policy?: A: Yes Q: Is this a repeat Sleep Study?: A: No All Prior Sleep Studies (past 365 days) Some values may be hidden. Unless noted otherwise, only the newest values recorded on each date aredisplayed. 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 Leg pain, bilateral 04/26/2021 PFO (patent foramen ovale) 09/26/2011 TIA (transient ischemic attack) 09/28/2012 Tobacco use disorder The medical record was reviewed to determine if the proposed sleep study conforms to the [facility] Practice Parameters for the Indications for Polysomnography and Related Procedures, or if the sleep studyis indicated for other reasons. Indications for study: SAI suspected with comorbid medical or sleep disorders: Neurologic diseases including neuromusculardisease or stroke Sleep study to be performed: Split Study-Polysomnogram with PAP titration Special instructions: Split night study if AHI > 15. Start with 5 cmH2O then titrate per protocol Target REM/supine sleep Add EtCO2 and Transcutaneous CO2 if available Ric[facility] Staff Note: I have read the above protocol, edited as needed, and agree to the plan. Ag Rae III, PhD 3:29 PM, 07/19/2022 * Nova Hammond - 07/18/2022 6:07 PM EST July 18, 2022 An order has been received for Polysomnogram (PSG) from Dr. Jm Childress MD , a B. [facility] Staff. Visit prep complete. Comments :No The sleep study is scheduled for 08/02. Insurance: Payor: [facility] MEDICA[facility] / Plan: [facility] MEDICAID / Product Type: Medicaid / Payer/Plan Subscr Sex Relation Sub. Ins. ID Effective Group Num 1. 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 Deandra is a 36 year old who presents for an annual gynecologic exam without complaints. Has long-hauler's COVID with some changes in period symptoms since having COVID one year ago. Menses: cycles every 28 days and 7 days of flow. Contraception: tubal sterilization HPV vaccine: No Last Pap: 03/29/2018 normal HPV: 03/23/2018 negative History of abnormal pap: Yes LEEP 2007 with subsequent normal Pap's Last mammogram: 2013 benign Sexually active: Yes History of STDS: None Patient concerns for STD exposure: No. 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 Leg pain, bilateral 04/26/2021 PFO (patent foramen ovale) 09/26/2011 TIA (transient ischemic attack) 09/28/2012 Tobacco use disorder PAST SURGICAL HISTORY Procedure Laterality Date CATH & SALINE/CONTRAST SONOHYSTER/HYSTEROSALPI 2003 DELIVERY ONLY 03/25/06-baby C/S, low cervical 15 WEEK GESTATION BABY DELIVERY ONLY 2009 , low transverse DELIVERY ONLY 05/17/11 , low transverse COLONOSCOPY FLX DX W/COLLJ SPEC WHEN PFRMD 12/19/2012 Colonoscopy COLONOSCOPY FLX DX W/COLLJ SPEC WHEN PFRMD 04/22/2020 Colonoscopy COLPOSCOPY CERVIX UPPER/ADJACENT VAGINA 2008 Colposcopy CONIZATION CERVIX W/WO D&C RPR ELTRD EXC 2008 LEEP-Cervix ESOPHAGOGASTRODUODENOSCOPY TRANSORAL DIAGNOSTIC 12/19/2012 EGD ESOPHAGOGASTRODUODENOSCOPY TRANSORAL DIAGNOSTIC 04/22/2020 EGD INSERTION OF IUD 06/24/2013 LAPS ABD PRTM&OMENTUM DX W/WO SPEC BR/WA SPX 2006 Laparoscopy X2 Endometriosis LAPS ABD PRTM&OMENTUM DX W/WO SPEC BR/WA SPX 2008 Laparoscopy LIG/TRNSXJ FLP TUBE ABDL/VAG APPR UNI/BI 05/17/11 Tubal ligation PAST SURGICAL HISTORY OF 2000 SCALP LESION FAMILY HISTORY Problem Relation Age of Onset other (OVARIAN REMNANT SYNDROME) Mother age 52 pulmonary other (SLE) Mother Hypertension Mother Hyperlipidemia Mother Stroke Mother Heart Failure Mother COPD Mother Coronary Artery Disease Father age 58 MVA (motorcycle) Hypertension Father Hyperlipidemia Father Diabetes Father Developmental problem Sister MENTAL RETARDATION/SEXUAL ADDICTION Heart Maternal Grandmother ENLARGED HEART Cancer Maternal Grandfather LUNG Heart Maternal Grandfather [place] Diabetes Maternal Grandfather Heart Paternal Grandfather [place] Stroke Paternal Grandfather Diabetes Paternal Grandfather Heart Other MGGM ENLARGED HEART Aneurysm No Family History SOCIAL HISTORY Social History Tobacco Use Smoking status: Every Day Packs/day: 1.00 Years: 24.00 Pack years: 24.00 Types: Cigarettes Smokeless tobacco: Never Tobacco comments: 03/10- has cut down to 4 cigs/day Vaping Use Vaping Use: Never used Substance Use Topics Alcohol use: No Drug use: No Comment: Never REVIEW OF SYSTEMS Abdomen: No abdominal pain, nausea, vomiting, diarrhea, or constipation. No bloating, early satiety, indigestion, or increased flatulence. Bladder: No dysuria, gross hematuria, urinary frequency, urinary urgency, or incontinence. Breast: No breast lumps, nipple d/c, overlying skin changes, redness or skin retraction. Itching - has eczema and dry skin Allergies and current medication updated:Yes EXAM: BP 100/60 Ht 5' 4 (1.63m) Wt 151 lb (68.5kg) LMP 05/31/2022 BMI 25.91 kg/(m^2). GENERAL: pleasant, female in no apparent distress HEENT: Normocephalic, atraumatic, mucus membranes moist, and no lesions NECK: Supple, full range of motion, no adenopathy, and thyroid normal DERMATOLOGY: Normal, without lesions, non-icteric, and non-hirsute BREAST: soft, non-tender, symmetric, no dominant mass, normal nipple-areolar complex, no lymphadenopathy, and no nipple discharge CHEST: Normal inspiratory effort ABDOMEN: soft, non-tender, and no masses PELVIC: external genitalia normal, normal Bartholin's glands, urethra, Sandborn's glands, no vulvar lesions, no cervical lesions, good vaginal support, physiologic discharge present, normal appearing perineal body and perianal region BIMANUAL: uterus normal size, shape and consistency, no adnexal masses, and non-tender RECTOVAGINAL: deferred. NEURO: alert and oriented x3,exam grossly non-focal EXTREMITIES: normal ASSESSMENT/PLAN: 1) Health maintenance: Pap done with HPV. Mammogram starting age 40. Nutrition, exercise and routine health maintenance exams reviewed. Smoking cessation: Has been decreasing to 1 ppd from 3-4 ppd.Benefits of smoking cessation reviewed. Patient encouraged to avoid smoking. 2) Contraception: tubal sterilization. Contraceptive options reviewed and information provided. 3) STD screening: Declined STD check. 4) Follow up one year or sooner as needed Carmen Acuna APRN.GEOGRAPHY HEAD [facility] Hospital Discharge instructions Patient Education 06/04/2022 18:28:15 DIZZINESS, Unk Cause Dizziness [Uncertain Cause] Dizziness is a common symptom sometimes described as lightheadedness or feeling like you are going to faint. If it lasts for only a few seconds and is related to changes in position (such as getting up after lying or sitting for a long time), it is usually not a sign of anything serious. Dizziness that lasts for minutes to hours, or comes on for no apparent reason, may be a sign of a more serious problem (such as dehydration, a medicine reaction, disease of the heart or brain). Today's exam did not show an exact cause for your dizzy spell . Sometimes additional tests are required before a cause can be found. Therefore, it is important to follow up with your doctor if your symptoms continue. Home Care: 1) If a dizzy spell occurs and lasts more than a few seconds, lie down until it passes. If you are lying down, then you cannot hurt yourself by falling if you do faint. 2) Do not drive or operate dangerous equipment until the dizzy spells have stopped for at least 48 hours. 3) If dizzy spells occur with sudden standing, this may be a sign of mild dehydration. Drink extra fluids over the next few days. 4) If you recently started a new medicine or if you had the dose of a current medicine increased (especially blood pressure medicine), talk with the prescribing doctor about your symptoms. Dose adjustments may be needed. Follow Up with your doctor for further evaluation within the next seven days, if your symptoms continue. Get Prompt Medical Attention if any of the following occur: -- Worsening of your symptoms -- Fainting, headache or seizure -- Repeated vomiting -- Feeling like you or the room is spinning -- Chest, arm, neck, back or jaw pain -- Palpitations (the sense that your heart is fluttering or beating fast or hard) -- Shortness of breath -- Blood in vomit or stool (black or red color) -- Weakness of an arm or leg or one side of the face -- Difficulty with speech or vision [id number] [employer]. [address] [place] [address], [place] [address]. All rights reserved. This information is not intended as a substitute for professional medical care. Always follow yourhealthcare professional's instructions. Follow Up Care 06/04/2022 17:12:25 With:JM CHILDRESS MD Address: [address] [place] [address] [phone] When:2-4 days With:Go to emergency room if symptoms worsen Address:Unknown When:2-4 days [facility] 12-10-2022 Note Discharge Instructions Thank you for allowing [facility] to assist you with your healthcare needs. The following is importantdischarge information regarding your hospital visit. Diagnosis from Today's Visit Dizziness Dizziness What to Do Next Instructions from Your Care Team No qualifying data available. Post Acute Orders No qualifying data available. You Need to Schedule the Following Appointments Follow Up with JM CHILDRESS MD When Within 2-4 days Where: [address] [place] [address] [phone] Follow Up with Go to emergency room if symptoms worsen When Within 2-4 days Allergies NKA Medications Please ask your primary doctor or pharmacist before taking any other medication not listed, including over the counter drugs, herbal medications, vitamins and or supplements as they may interact withyour home medications. What How Much When Why Instructions Last Dose Unchanged acetaminophen- hydrocodone ([place] 325- 5 mg oral tablet) 1 tab(s) by mouth Every 6 hours as needed for as needed for pain Chest wall pain Duration: 3 Days Unchanged ibuprofen (ibuprofen 600 mg oral tablet) 1 tab(s) by mouth Three (3) times a day as needed for as needed for pain Please take this list to your next doctor s visit. Bring all medications you take, including over the counter medications, herbals and other supplements with you to your doctor s visit. Patients and families are reminded to discard old lists and to update any records with all medication providers or retail pharmacies. Education Materials Dizziness [Uncertain Cause] Dizziness is a common symptom sometimes described as lightheadedness or feeling like you are going to faint. If it lasts for only a few seconds and is related to changes in position (such as getting up after lying or sitting for a long time), it is usually not a sign of anything serious. Dizziness that lasts for minutes to hours, or comes on for no apparent reason, may be a sign of a more serious problem (such as dehydration, a medicine reaction, disease of the heart or brain). Today's exam did not show an exact cause for your dizzy spell . Sometimes additional tests are required before a cause can be found. Therefore, it is important to follow up with your doctor if your symptoms continue. Home Care: 1) If a dizzy spell occurs and lasts more than a few seconds, lie down until it passes. If you are lying down, then you cannot hurt yourself by falling if you do faint. 2) Do not drive or operate dangerous equipment until the dizzy spells have stopped for at least 48 hours. 3) If dizzy spells occur with sudden standing, this may be a sign of mild dehydration. Drink extra fluids over the next few days. 4) If you recently started a new medicine or if you had the dose of a current medicine increased (especially blood pressure medicine), talk with the prescribing doctor about your symptoms. Dose adjustments may be needed. Follow Up with your doctor for further evaluation within the next seven days, if your symptoms continue. Get Prompt Medical Attention if any of the following occur: -- Worsening of your symptoms -- Fainting, headache or seizure -- Repeated vomiting -- Feeling like you or the room is spinning -- Chest, arm, neck, back or jaw pain -- Palpitations (the sense that your heart is fluttering or beating fast or hard) -- Shortness of breath -- Blood in vomit or stool (black or red color) -- Weakness of an arm or leg or one side of the face -- Difficulty with speech or vision [id number] [employer]. [address] [place] [address], [place] [address]. All rights reserved. This information is not intended as a substitute for professional medical care. Always follow yourhealthcare professional's instructions. Additional Information VACCINATE! IT SAVES LIVES! Members of the community who have not yet received the COVID-19 vaccine and would like to receive it can visit one of [facility] vaccine clinics. There are many vaccine clinic locations within the [facility]. For locations and available times, please visit [email or web address]. It is important to note that some COVID mobile vaccine clinics are held outdoors and may be canceled in rainy orstormy conditions. To learn more about pediatric vaccinations (ages 5-11), we invite you to visit the [facility] webpage. [email or web address]/[email or web address] learn more about the COVID-19 vaccine, we invite you to visit the [facility] website for a list of frequently asked questions. [email or web address] [facility] Patient Portal Access Instructions: Stay connected with your healthcare team and access your personal medical information anytime with the [facility] Patient Portal. If you would like a full copy of your medical records please contact the [facility] Medical Records Department Monday through Monday between 8a.m. and 4:30p.m. Please follow the directions below to access the portal: 1.Access the email account you provided upon registration to the [facility].2.Look for an invitation email from [facility].3.Open the email and access the invitation link: Accept Invitation to [facility]4.Fill in the required rose to create your account. Sign into [email or web address] with your username and password that you created in the above steps to stay up to date. You can then view a summary of results, a summary of your visits, and the ability to download your summaries to your computer or send the information securely to a physician. Remember that your healthcare information is confidential, so carefully consider who you will allow to register on the [facility] Patient Portal for access to your information. You can also access the [facility] Patient Portal on the The car easily beat. Simply click on Health Records under [employer] and then click on the [employer] logo. HOW TO SAFELY DISPOSE OF PRESCRIPTION MEDICATIONS Please use one of the following methods to safely dispose of your unused medications. 1.Use a drug disposal kit: the drug disposal pouch allows you to safely discard your old and unuseddrugs. Ask your nurse to give you one when you are discharged.2.Visit a local take-back location: Many local pharmacies and police departments have programs that collect old and unwanted prescriptiondrugs. Call your local pharmacy or go to http://mParticle.Texxi/4H9Un4s to find one close to you.3.Make use of household items: Use cat litter or old coffee grounds to dispose medications if other options arenot available. Mix your drugs with these household products, seal them in an airtight container andthrow it into the garbage. Call [facility]: [phone] to be sure your drugs can be disposed of in this way. Some medicines may require a different approach.4.Never flush your medications down the toilet. IF YOU HAVE BEEN PRESCRIBED AN OPIOIDS FOR PAIN If you have been prescribed an opioid (such as hydrocodone, oxycodone or morphine), it is critical to understand the possible side effects and risks of opioid pain medications. Even when taken as directed, opioids can have several side effects including: Tolerance, meaning you might need to take more of a medication for the same pain relief. Nausea, vomiting and/or constipation. Sleepiness, dizziness, dry mouth, confusion, depression or itching. Physical dependence, meaning you have withdrawal symptoms when a medication is stopped ? this can develop within a few days. KNOW YOUR RESPONSIBILITIES It is important to know exactly how much and how often to take the opioid pain medications you are prescribed. Never take opioids in higher amounts or more often than prescribed. Do not combine opioids with alcohol or other drugs that cause drowsiness, such as benzodiazepines, also known as benzos,including diazepam and alprazolam, muscle relaxants or sleep aids. Never sell or share prescriptionopioids. This is illegal. Store opioids in a secure place and out of reach of others (including children, family, friends and visitors). The last page(s) of this document has been signed and retained as a CHART COPY Signatures Patient Education Materials DIZZINESS, Unk Cause Medication Leaflets My discharge plan and instructions have been reviewed and explained to me and I,MAHENDRA DEANDRA M understand my current condition and have read and understand these discharge instructions. I have received a written copy of the plan/instructions. If I have questions, I am aware that I should contactmy doctor. Patient/Kiln Drawer Signature: Date/Time: Relationship to Patient: Witness Name/Signature: Date/Time: [facility]12-10-2022 Note ORIGINAL EXAMINATION: ONE XRAY VIEW OF THE CHEST 06/04/2022 5:49 pm COMPARISON: 06/15/2021. HISTORY: ORDERING SYSTEM PROVIDED HISTORY: Reason for Exam: chest pain FINDINGS: The cardiomediastinal silhouette is stable. There are bibasilar interstitial opacities similar to prior. No large pleural effusion, pneumothorax, or vascular congestion. The osseous structures appear intact. IMPRESSION: Mild bibasilar interstitial opacities similar to prior likely atelectasis . I have personally reviewed the images of this examination and agree with the resident's findings and interpretation. Interpreted by: Tommy Branch MD Preliminary Report By: Tami Alan Electronically signed By Tommy Branch MD Dictated Date: 06/04/2022 6:14:14 PM Prelim Date: 06/04/2022 6:18:48 PM Sign Date: 06/04/2022 6:23:01 PM Ordering Provider: MOUSTAPHA GUNN [facility]12-10-2022 Note ORIGINAL EXAMINATION: ONE XRAY VIEW OF THE CHEST 06/04/2022 5:49 pm COMPARISON: 06/15/2021. HISTORY: ORDERING SYSTEM PROVIDED HISTORY: Reason for Exam: chest pain FINDINGS: The cardiomediastinal silhouette is stable. There are bibasilar interstitial opacities similar to prior. No large pleural effusion, pneumothorax, or vascular congestion. The osseous structures appear intact. IMPRESSION: Mild bibasilar interstitial opacities similar to prior likely atelectasis . I have personally reviewed the images of this examination and agree with the resident's findings and interpretation. Interpreted by: Tommy Branch MD Preliminary Report By: Tami Alan Electronically signed By Tommy Branch MD Dictated Date: 06/04/2022 6:14:14 PM Prelim Date: 06/04/2022 6:18:48 PM Sign Date: 06/04/2022 6:23:01 PM Ordering Provider: [facility]09-15-2022 History of Present illness Narrative* Lorraine Melba Ruiz MD - 03/10/2022 1:34 PM EDT Deandra Mccray is a 36 year old female who presents for concerns regarding vaginal bump. Patient states since a vaginal bump appeared over a year ago it is never fully resolved. She states that recently over the last 1 to 2 weeks it got larger and it was more painful. She states that now it is smaller and not painful. Denies any fevers difficulty urinating or drainage from the site. Patient states she has not had sex since the cyst was little bit larger. She states she does shave the area butdenies any trauma to the area. Patient offers no other concerns. 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 Leg pain, bilateral 04/26/2021 PFO (patent foramen ovale) 09/26/2011 TIA (transient ischemic attack) 09/28/2012 Tobacco use disorder PAST SURGICAL HISTORY Procedure Laterality Date CATH & SALINE/CONTRAST SONOHYSTER/HYSTEROSALPI 2003 DELIVERY ONLY 03/25/06-baby C/S, low cervical 15 WEEK GESTATION BABY DELIVERY ONLY 2009 , low transverse DELIVERY ONLY 05/17/11 , low transverse COLONOSCOPY FLX DX W/COLLJ SPEC WHEN PFRMD 12/19/2012 Colonoscopy COLONOSCOPY FLX DX W/COLLJ SPEC WHEN PFRMD 04/22/2020 Colonoscopy COLPOSCOPY CERVIX UPPER/ADJACENT VAGINA 2008 Colposcopy CONIZATION CERVIX W/WO D&C RPR ELTRD EXC 2008 LEEP-Cervix ESOPHAGOGASTRODUODENOSCOPY TRANSORAL DIAGNOSTIC 12/19/2012 EGD ESOPHAGOGASTRODUODENOSCOPY TRANSORAL DIAGNOSTIC 04/22/2020 EGD INSERTION OF IUD 06/24/2013 LAPS ABD PRTM&OMENTUM DX W/WO SPEC BR/WA SPX 2006 Laparoscopy X2 Endometriosis LAPS ABD PRTM&OMENTUM DX W/WO SPEC BR/WA SPX 2008 Laparoscopy LIG/TRNSXJ FLP TUBE ABDL/VAG APPR UNI/BI 05/17/11 Tubal ligation PAST SURGICAL HISTORY OF 2000 SCALP LESION FAMILY HISTORY Problem Relation Age of Onset other (OVARIAN REMNANT SYNDROME) Mother age 52 pulmonary other (SLE) Mother Hypertension Mother Hyperlipidemia Mother Stroke Mother Heart Failure Mother COPD Mother Coronary Artery Disease Father age 58 MVA (motorcycle) Hypertension Father Hyperlipidemia Father Diabetes Father Developmental problem Sister MENTAL RETARDATION/SEXUAL ADDICTION Heart Maternal Grandmother ENLARGED HEART Cancer Maternal Grandfather LUNG Heart Maternal Grandfather [place] Diabetes Maternal Grandfather Heart Paternal Grandfather [place] Stroke Paternal Grandfather Diabetes Paternal Grandfather Heart Other MGGM ENLARGED HEART Aneurysm No Family History Social History Tobacco Use Smoking status: Every Day Packs/day: 1.00 Years: 24.00 Pack years: 24.00 Types: Cigarettes Smokeless tobacco: Never Tobacco comments: 03/10- has cut down to 4 cigs/day Vaping Use Vaping Use: Never used Substance Use Topics Alcohol use: No Drug use: No Comment: Never Current Outpatient Medications Medication Sig aspirin 81 mg cap Take 1 capsule by mouth. MEDICATION, NON-DATABASE [facility] (Patient not taking: Reported on 10/25/2021 ) buPROPion SR (ZYBAN SR; WELLBUTRIN SR) 150 mg 12 hr tablet Take 1 tablet by mouth twice daily. NAPROXEN ORAL Take 500 mg by mouth as needed (for pain). Current Facility-Administered Medications Medication Dose Route Frequency perflutren lipid microspheres 1.3 mL in NaCl (PF) 0.9% 10 mL injection (DEFINITY) INTRAVENOUS DIRECTED PRN sodium chloride 0.9 % (flush) 10 mL (BD POSIFLUSH) 10 mL INTRAVENOUS DIRECTED PRN Allergies As of Date: 03/10/2022 Allergen Noted Reaction BLEACH [OTHER] 05/12/2005 Rash CODEINE 08/05/2016 GI Upset PAXIL [PAROXETINE HCL] 04/24/2006 Rash TYLENOL-CODEINE #3 [ACETAMINOPHEN*05/11/2005 GI Upset Fully Assessed 03/10/2022 REVIEW OF SYSTEMS Abdomen: no pain Bladder: no dysuria .. Expanded ROS: GENERAL: Negative for fever Allergies and current medication updated:Yes EXAM: BP 118/64 Wt 153 lb (69.4kg) LMP 02/08/2022 GENERAL: pleasant, female in no apparent distress HEENT: Normocephalic and atraumatic NECK: full range of motion DERMATOLOGY: without lesions PELVIC: Small 1 cm right labial cyst measuring 1 cm. Upon manipulation there is a small amount of purulent drainage. There is no surrounding erythema or induration. It is not flocculent. NEURO: alert and oriented x3,exam grossly non-focal EXTREMITIES: normal ASSESSMENT AND PLAN: Encounter Diagnosis ICD-10-CM 1. Labial cyst N90.7 2. Chronic folliculitis L73.9 3. Discussed with the patient that this could be from shaving the area and causing folliculitis maria elena reactive response. Discussed with the patient not manipulating the area not trying to squeeze or pop the area. But would recommend doing hot compresses or warm soaks 2-3 times a day. If there is increase in size, pain or erythema to come back to the office and at that point we can decide if it needs to be lanced. No need for antibiotics at this time. Patient was comfortable to plan will follow-up for her routine annual exams. I spent a total of 20 minutes on the date of the service which included preparing to see the patient, [id number] patient care, completing clinical documentation, obtaining and/or reviewing separately obtained history, performing a medically appropriate examination, and counseling and educating the patient/family/caregiver Medical Decision Making: Medical Decision Making Level: 1 - N/A Lorraine Manzo MD * Erica Preciado Ma - 03/10/2022 1:31 PM EDT Washer Engineer Helper offered: Patient declines. [facility] Miscellaneous Notes* Telephone Encounter - Lashanda Joseph RN - 03/01/2022 4:02 PM EDT Pt scheduled for Monday03/04/22 * Telephone Encounter - Rashmi Fernandez Pss - 02/26/2022 1:48 PM EDT 2nd attempt made. L/m for patient to call and schedule echo * Telephone Encounter - Lashanda Joseph RN - 02/22/2022 12:11 PM EDT Call to pt to schedule echo before next appt with Rashmi Castañeda on 03/07/22. No answer, voicemail left to call office documented in [facility] Miscellaneous Notes* Telephone Encounter - Lashanda Joseph RN - 10/26/2021 4:20 PM EDT Pt returned call and notified of below. Verbalized understanding * Telephone Encounter - Lashanda Joseph RN - 10/26/2021 3:46 PM EDT LVM for pt to contact office in regards to below. * Telephone Encounter - Lashanda Joseph RN - 10/26/2021 3:44 PM EDT ----- Message from Rashmi Castañeda APRN.GEOGRAPHY HEAD sent at 10/26/2021 10:24 AM EDT ----- CRP without elevation to indicate inflammatory process. BNP without significant elevation to indicate volume overload or CHF. Thank you! documented in this encounterC[facility]22 Instructions* Patient Instructions* Rashmi Castañeda APRN.CNP - 10/25/2021 4:05 PM EDT Heart Disease in Women Is heart disease a problem for women? Heart disease is the leading cause of of [place] women. More women from heart disease than from cancer. A heart attack can happen when there are problems with the blood vessels that bring blood to the heart (the coronary arteries). For example, fatty deposits called plaque may build up in the coronary arteries and make them narrower. The narrowing decreases blood flow to the heart. Plaque also increases the chance that blood clots may form and block a blood vessel, which can cause a heart attack orstroke. In the first year after a heart attack, women have an increased risk of . In the first 6 yearsafter a heart attack, they also have a higher risk of a second heart attack. Women are at high riskoften because they are older at the time of the heart attack and have other medical problems. Not everyone has the same symptoms. The most common symptoms of a heart attack include: Chest pain or pressure, squeezing, or fullness in the center of your chest that lasts more than a few minutes, or goes away and comes back (may feel like indigestion or heartburn) Pain or discomfort in one or both arms or shoulders, or in your back, neck, jaw, or stomach Trouble breathing Breaking out in a cold sweat for no known reason Along with these symptoms, you may also feel very tired, faint, or be sick to your stomach. Sometimes you can be having a heart attack and not know it. Many women have chest pain or pressure,but sometimes symptoms in women are different from men s symptoms. Or women may have additional symptoms, such as: Unexplained anxiety and nervousness Swelling of the ankles or lower legs Because they may not feel the typical pain in the left side of their chest, many women may ignore the symptoms of a heart attack. Call 911 for emergency help right away if you have these symptoms. Donot drive yourself to the hospital. Immediate emergency care improves your chances of survival and may help avoid damage to your heart. How can women lower their risk for heart disease? If you have high blood pressure, carefully follow your healthcare provider's instructions for keeping it under control. If you are a smoker, stop smoking. Try to keep a healthy weight. If you are overweight, talk to your provider about ways to lose weight. Eat a healthy diet that includes: ?Avoiding salty foods and not adding salt to food ?Increasing fiber, fruits, and vegetables ?Avoiding foods high in fat, cholesterol, and sugar Exercise according to your healthcare provider's instructions. Get enough rest and learn to use relaxation methods to help reduce stress. Treat and control medical conditions such as diabetes and high cholesterol. If you are taking hormone therapy, you and your healthcare provider should discuss the risks and benefits. Hormone therapy may increase the risk for heart disease or stroke. Talk with your provider about taking aspirin. Low-dose aspirin therapy reduces the risk of stroke for women. But it helps to lower a woman s risk of heart attack and other heart problems only if she is 65 or older. Make sure that your provider knows about any other medicines you are taking. If you decide you needto make changes in the way you live, you probably won't be able to turn your life around all at once. Try to develop healthy habits that incorporate your lifestyle goals. If you do, you will greatly decrease your chances for developing heart disease. You can get more information from: [facility] [id number] ( )www.heart.org Developed by [employer] Published by [employer] Copyright 2014 [employer] and/or one of its subsidiaries. All rights reserved. documented in this encounterC[facility] History of Present illness Narrative* Rashmi Castañeda APRN.CNP - 10/25/2021 3:31 PM EDT Chief Complaint Patient presents with: Fatigue History of Present Illness: Deandra Pizano is a 36 year old female who presents for sooner follow up d/t symptoms. She has a PMhx of TIA, PFO, PAD, current smoker, post Covid infection May 2021. She is known to Dr. Gandhi,last seen in office on 07/05/2021. She states she has not been feeling well. She is having symptoms different from TIA symptoms in the past. Multiple symptoms that started post COVID. Symptoms including chest pain, palpitations, brief memory loss, inability to concentrate, day time sleepiness, nighttime wakefulness, blurred vision, lightheadedness, near syncope, change in taste. 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 Feels very limited in her job by her symptoms. She is scheduled to see our post Covid recovery clinic. We agreed to start further evaluation of symptoms with an echocardiogram, CRP, BNP, SAI evaluation and neurology evaluation. 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 Leg pain, bilateral 04/26/2021 PFO (patent foramen ovale) 09/26/2011 TIA (transient ischemic attack) 09/28/2012 Tobacco use disorder PAST SURGICAL HISTORY Procedure Laterality Date CATH & SALINE/CONTRAST SONOHYSTER/HYSTEROSALPI 2003 DELIVERY ONLY 03/25/06-baby C/S, low cervical 15 WEEK GESTATION BABY DELIVERY ONLY 2009 , low transverse DELIVERY ONLY 05/17/11 , low transverse COLONOSCOPY FLX DX W/COLLJ SPEC WHEN PFRMD 12/19/2012 Colonoscopy COLONOSCOPY FLX DX W/COLLJ SPEC WHEN PFRMD 04/22/2020 Colonoscopy COLPOSCOPY CERVIX UPPER/ADJACENT VAGINA 2007 Colposcopy CONIZATION CERVIX W/WO D&C RPR ELTRD EXC 2008 LEEP-Cervix ESOPHAGOGASTRODUODENOSCOPY TRANSORAL DIAGNOSTIC 12/19/2012 EGD ESOPHAGOGASTRODUODENOSCOPY TRANSORAL DIAGNOSTIC 04/22/2020 EGD INSERTION OF IUD 06/24/2013 LAPS ABD PRTM&OMENTUM DX W/WO SPEC BR/WA SPX 2005 Laparoscopy X2 Endometriosis LAPS ABD PRTM&OMENTUM DX W/WO SPEC BR/WA SPX 2007 Laparoscopy LIG/TRNSXJ FLP TUBE ABDL/VAG APPR UNI/BI 05/17/11 Tubal ligation PAST SURGICAL HISTORY OF 2000 SCALP LESION FAMILY HISTORY Problem Relation Age of Onset other (OVARIAN REMNANT SYNDROME) Mother age 52 pulmonary other (SLE) Mother Hypertension Mother Hyperlipidemia Mother Stroke Mother Heart Failure Mother COPD Mother Coronary Artery Disease Father age 58 MVA (motorcycle) Hypertension Father Hyperlipidemia Father Diabetes Father Developmental problem Sister MENTAL RETARDATION/SEXUAL ADDICTION Heart Maternal Grandmother ENLARGED HEART Cancer Maternal Grandfather LUNG Heart Maternal Grandfather [place] Diabetes Maternal Grandfather Heart Paternal Grandfather [place] Stroke Paternal Grandfather Diabetes Paternal Grandfather Heart Other MGGM ENLARGED HEART Aneurysm No Family History Social History Tobacco Use Smoking status: Current Every Day Smoker Packs/day: 1.00 Years: 24.00 Pack years: 24.00 Types: Cigarettes Smokeless tobacco: Never Used Tobacco comment: 03/10- has cut down to 4 cigs/day Vaping Use Vaping Use: Never used Substance Use Topics Alcohol use: No Drug use: No Comment: Never ALLERGIES Allergen Reactions Bleach [Other] Rash Codeine GI Upset Paxil [Paroxetine H* Rash Tylenol-Codeine #3 * GI Upset Medications: Current Outpatient Medications Medication Sig Dispense Refill aspirin 81 mg cap Take 1 capsule by mouth. buPROPion SR (ZYBAN SR; WELLBUTRIN SR) 150 mg 12 hr tablet Take 1 tablet by mouth twice daily. 60 tablet 1 NAPROXEN ORAL Take 500 mg by mouth as needed (for pain). MEDICATION, NON-DATABASE [facility] (Patient not taking: Reported on 10/25/2021 ) No current facility-administered medications for this visit. Review of Systems Constitutional: Positive for malaise/fatigue (day time, feels better at night ). Negative for chills, diaphoresis, fever and weight loss. HENT: Negative for congestion, ear pain, nosebleeds, sinus pain and sore throat. Change is taste Eyes: Positive for blurred vision. Negative for pain. Respiratory: Positive for shortness of breath (once in while ). Negative for cough and wheezing. Cardiovascular: Positive for chest pain (a few days at a time ), palpitations (daily ) and leg swelling. Negative for orthopnea, claudication and PND. Gastrointestinal: Negative for abdominal pain, blood in stool and melena. Genitourinary: Negative for hematuria. Musculoskeletal: Negative for falls. Neurological: Positive for dizziness and headaches. Negative for tingling, sensory change, speech change, focal weakness, loss of consciousness and weakness. Endo/Heme/Allergies: Does not bruise/bleed easily. Psychiatric/Behavioral: Positive for memory loss. Negative for depression and suicidal ideas. The patient has insomnia. The patient is not nervous/anxious. Awake all night, 4-5 hours of sleep Physical Examination: Vitals:BP 110/58 Pulse 100 Resp 20 Ht 5' 4 (1.63m) Wt 159 lb (72.1kg) LMP 08/11/2021 BMI 27.28 kg/(m^2). Last 2 Encounter Wt Readings: Date: Wt: 08/30/2021 162 lb 14.4 oz (73.9 kg) 07/05/2021 165 lb (74.8 kg) Physical Exam HENT: Head: Normocephalic. Eyes: Pupils: Pupils are equal, round, and reactive to light. Cardiovascular: Rate and Rhythm: Normal rate and regular rhythm. Pulses: Radial pulses are 2+ on the right side and 2+ on the left side. Dorsalis pedis pulses are 2+ on the right side and 2+ on the left side. Heart sounds: Normal heart sounds, S1 normal and S2 normal. Pulmonary: Effort: Pulmonary effort is normal. No accessory muscle usage or respiratory distress. Breath sounds: Normal breath sounds. Abdominal: General: Bowel sounds are normal. Palpations: Abdomen is soft. Musculoskeletal: General: Normal range of motion. Cervical back: Normal range of motion. Right lower leg: No edema. Left lower leg: No edema. Skin: General: Skin is warm and dry. Neurological: Mental Status: She is alert and oriented to person, place, and time. Gait: Gait is intact. Psychiatric: Mood and Affect: Affect normal. Cognition and Memory: Memory normal. Judgment: Judgment normal. Most Recent Cardiac Testing 11/03/2020 CONCLUSIONS: - Exam indication: ASD vs PFO - There is a patent foramen ovale as detected by agitated saline contrast. - Agitated saline study performed is positive for shunt (clips #[id number]). - Imaging was limited by difficulty with patient secretions. - There is evidence of probable PFO. - Consider cardiac MRI to further define anatomy. - Patient uses tobacco and anesthesia was difficult even with anesthesiology provider present. - Exam was compared with the prior echocardiographic exam performed on 06/08/2020. Similar findings. Assessment and Plan: Palpitations -symptoms daily -echocardiogram ordered -consider monitor, completed one last year without significant arrhythmia -not currently on bb or ccb -recommended conservative measures: stay hydrated, limit stimulants/caffiene, limit stress. Patientstates she no longer has a taste for coffee Chest pain -atypical for ischemia, check echocardiogram -has cardiac MRI pending form 10/[address] Gandhi -check CRP, BNP -no recent FLP will consider checking at next office visit for risk factor assessment Fatigue -recent TSH and CBC -pulmonary referral for SAI evaluation. Patient states she has periods of apnea and snoring at night Memory loss, brain fog, inability to concentrate, light headedness, near syncope, vision changes -patient describes and out of body experience followed by extreme fatigue, referred for neurologyevaluation -has pending tilt table test PFO -no indication for closure, given hx of possible TIA there is an indication for 81 mg once daily Post Covid syndrome -follows with the post COVID recovery clinic as planned Tobacco use -Encouraged cessation -Physiologic and physical aspects of tobacco addiction as well as strategies for quitting were discussed. -Counseling was given focusing on the harmful effects of this addiction especially given the patient's medical condition(s) which will be worsened because of the chemicals in tobacco. PAD -follows with vascular at [facility] Follow up in 3 months. Patient to call with any issues or concerns prior to then. Electronically signed by Rashmi Castañeda APRN.CNP on October 25, 2021, 3:31 PM documented in this encounterC[facility] Hospital Discharge instructions Patient Education 06/15/2021 19:21:47 Chest Wall Pain, Costochondritis Chest Wall Pain: Costochondritis The chest pain that you have had today is caused by costochondritis. This condition is caused by aninflammation of the cartilage joining your ribs to your breastbone. It is not caused by heart or lung problems. Your healthcare team has made sure that the chest pain you feel is not from a life threatening cause of chest pain such as heart attack, collapsed lung, blood clot in the lung, tear in the aorta, or esophageal rupture. The inflammation may have been brought on by a blow to the chest, lifting heavy objects, intense exercise, or an illness that made you cough and sneeze a lot. It often occurs during times of emotional stress. It can be painful, but it is not dangerous. It usually goesaway in 1 to 2 weeks. But it may happen again. Rarely, a more serious condition may cause symptoms similar to costochondritis. That s why it s important to watch for the warning signs listed below. Home care Follow these guidelines when caring for yourself at home: If you feel that emotional stress is a cause of your condition, try to figure out the sources of that stress. It may not be obvious. Learn ways to deal with the stress in your life. This can include regular exercise, muscle relaxation, meditation, or simply taking time out for yourself. You may use acetaminophen, ibuprofen, or naproxen to control pain, unless another pain medicine wasprescribed. If you have liver or kidney disease or ever had a stomach ulcer, talk with your healthcare provider before using these medicines. You can also help ease pain by using a hot, wet compress or heating pad. Use this with or without amedicated skin cream that helps relieves pain. Do stretching exercise as advised by your provider. Take any prescribed medicines as directed. Follow-up care Follow up with your healthcare provider, or as advised, if you do not start to get better in the next 2 days. When to seek medical advice Call your healthcare provider right away if any of these occur: A change in the type of pain. Call if it feels different, becomes more serious, lasts longer, or spreads into your shoulder, arm, neck, jaw, or back. Shortness of breath or pain gets worse when you breathe Weakness, dizziness, or fainting Cough with dark-colored sputum (phlegm) or blood Abdominal pain Dark red or black stools Fever of 100.4 F (38 C) or higher, or as directed by your healthcare provider [id number] [employer]. [address] [place] [address]. All rights reserved. This information is not intended as a substitute for professional medical care. Always follow yourhealthcare professional's instructions. Follow Up Care 06/15/2021 16:55:33 With:FIOR HERNANDEZ, JM MORA Address: [address] [place] [address] [place] [phone]- [phone] When:3-5 days [facility] 10-03-2012 History of Past illness Narrative* Problem Noted Date Resolved Date Irregular menstrual cycle 03/28/20122013 Abdominal pain, right lower quadrant 12/05/2011 12/05/2011 Abdominal pain, generalized 03/27/200911/24 Lump or mass in breast 12/17/2007 0 Mastodynia 12/17/2007 12/09/2009 Dysmenorrhea 12/17/2007 04/14/2014 Female infertility of unspecified origin 008 12/05/2011 Rhesus isoimmunization affec ting management of mother, antepartum condition 02/16/2006 12/17/2007 documented as of this encounter (statuses as of 10/26/2021) [facility] History of Past illness Narrative* Problem Noted Date Resolved Date Irregular menstrual cycle 03/28/20122013 Abdominal pain, right lower quadrant 12/05/2011 12/05/2011 Abdominal pain, generalized 03/27/200911/24 Lump or mass in breast 12/17/2007 0 Mastodynia 12/17/2007 12/09/2009 Dysmenorrhea 12/17/2007 04/14/2014 Female infertility of unspecified origin 008 12/05/2011 Rhesus isoimmunization affec ting management of mother, antepartum condition 02/16/2006 12/17/2007 documented as of this encounter (statuses as of 10/26/2021) [facility] of Past illness Narrative* Problem Noted Date Resolved Date Irregular menstrual cycle 03/28/20122013 Abdominal pain, right lower quadrant 12/05/2011 12/05/2011 Abdominal pain, generalized 03/27/200911/24 Lump or mass in breast 12/17/2007 0 Mastodynia 12/17/2007 12/09/2009 Dysmenorrhea 12/17/2007 04/14/2014 Female infertility of unspecified origin 008 12/05/2011 Rhesus isoimmunization affec ting management of mother, antepartum condition 02/16/2006 12/17/2007 documented as of this encounter (statuses as of 03/01/2022) [facility] of Past illness Narrative* Problem Noted Date Resolved Date Irregular menstrual cycle 03/28/20122013 Abdominal pain, right lower quadrant 12/05/2011 12/05/2011 Abdominal pain, generalized 03/27/200911/24 Lump or mass in breast 12/17/2007 0 Mastodynia 12/17/2007 12/09/2009 Dysmenorrhea 12/17/2007 04/14/2014 Female infertility of unspecified origin 008 12/05/2011 Rhesus isoimmunization affec ting management of mother, antepartum condition 02/16/2006 12/17/2007 documented as of this encounter (statuses as of 03/10/2022) [facility] of Past illness Narrative* Problem Noted Date Resolved Date Irregular menstrual cycle 03/28/20122013 Abdominal pain, right lower quadrant 12/05/2011 12/05/2011 Abdominal pain, generalized 03/27/200911/24 Lump or mass in breast 12/17/2007 0 Mastodynia 12/17/2007 12/09/2009 Dysmenorrhea 12/17/2007 04/14/2014 Female infertility of unspecified origin 008 12/05/2011 Rhesus isoimmunization affec ting management of mother, antepartum condition 02/16/2006 12/17/2007 documented as of this encounter (statuses as of 06/08/2022) [facility] of [facility] illness Narrative* Problem Noted Date Resolved Date Irregular menstrual cycle 03/28/20122013 Abdominal pain, right lower quadrant 12/05/2011 12/05/2011 Abdominal pain, generalized 03/27/200911/24 Lump or mass in breast 12/17/2007 0 Mastodynia 12/17/2007 12/09/2009 Dysmenorrhea 12/17/2007 04/14/2014 Female infertility of unspecified origin 008 12/05/2011 Rhesus isoimmunization affec ting management of mother, antepartum condition 02/16/2006 12/17/2007 documented as of this encounter (statuses as of 08/03/2022) [facility] of [facility] illness Narrative* Problem Noted Date Resolved Date Irregular menstrual cycle 03/28/20122013 Abdominal pain, right lower quadrant 12/05/2011 12/05/2011 Abdominal pain, generalized 03/27/200911/24 Lump or mass in breast 12/17/2007 0 Mastodynia 12/17/2007 12/09/2009 Dysmenorrhea 12/17/2007 04/14/2014 Female infertility of unspecified origin 008 12/05/2011 Rhesus isoimmunization affec ting management of mother, antepartum condition 02/16/2006 12/17/2007 documented as of this encounter (statuses as of 08/17/2022) [facility] of [facility] illness Narrative* Problem Noted Date Resolved Date Irregular menstrual cycle 03/28/20122013 Abdominal pain, right lower quadrant 12/05/2011 12/05/2011 Abdominal pain, generalized 03/27/200911/24 Lump or mass in breast 12/17/2007 0 Mastodynia 12/17/2007 12/09/2009 Dysmenorrhea 12/17/2007 04/14/2014 Female infertility of unspecified origin 008 12/05/2011 Rhesus isoimmunization affec ting management of mother, antepartum condition 02/16/2006 12/17/2007 documented as of this encounter (statuses as of 08/18/2022) [facility] illness Narrative* Problem Noted Date Resolved Date Irregular menstrual cycle 03/28/20122013 Abdominal pain, right lower quadrant 12/05/2011 12/05/2011 Abdominal pain, generalized 03/27/200911/24 Lump or mass in breast 12/17/2007 0 Mastodynia 12/17/2007 12/09/2009 Dysmenorrhea 12/17/2007 04/14/2014 Female infertility of unspecified origin 008 12/05/2011 Rhesus isoimmunization affec ting management of mother, antepartum condition 02/16/2006 12/17/2007 documented as of this encounter (statuses as of 08/19/2022) [facility] illness Narrative* Problem Noted Date Resolved Date Irregular menstrual cycle 03/28/20122013 Abdominal pain, right lower quadrant 12/05/2011 12/05/2011 Abdominal pain, generalized 03/27/200911/24 Lump or mass in breast 12/17/2007 0 Mastodynia 12/17/2007 12/09/2009 Dysmenorrhea 12/17/2007 04/14/2014 Female infertility of unspecified origin 008 12/05/2011 Rhesus isoimmunization affec ting management of mother, antepartum condition 02/16/2006 12/17/2007 documented as of this encounter (statuses as of 08/19/2022) [facility] Narrative* Problem Noted Date Resolved Date Irregular menstrual cycle 03/28/20122013 Abdominal pain, right lower quadrant 12/05/2011 12/05/2011 Abdominal pain, generalized 03/27/200911/24 Lump or mass in breast 12/17/2007 0 Mastodynia 12/17/2007 12/09/2009 Dysmenorrhea 12/17/2007 04/14/2014 Female infertility of unspecified origin 008 12/05/2011 Rhesus isoimmunization affec ting management of mother, antepartum condition 02/16/2006 12/17/2007 documented as of this encounter (statuses as of 12/15/2022) [facility] Narrative* Problem Noted Date Diagnosed Date Resolved Date Irregular menstrual cycle 03/28/2012 Abdominal pain, right lower quadrant 12/05/2011 12/05/2011 Abdominal pain, generalized 03/27/2009 12/09/2009 Lump or mass in breast 12/17/200712/09 Mastodynia 12/17/2007 12/09/2009 Dysmenorrhea 12/17/2007 04/14/2014 Female infertility of unspecified origin 12/17/2007 12/05/2011 Rhesus isoimmunization affec ting management of mother, antepartum condition 02/16/2006 12/17/19 08 documented as of this encounter (statuses as of 01/26/2023) [facility] Narrative* Problem Noted Date Diagnosed Date Resolved Date Irregular menstrual cycle 03/28/2012 Abdominal pain, right lower quadrant 12/05/2011 12/05/2011 Abdominal pain, generalized 03/27/2009 12/09/2009 Lump or mass in breast 12/17/200712/09 Mastodynia 12/17/2007 12/09/2009 Dysmenorrhea 12/17/2007 04/14/2014 Female infertility of unspecified origin 12/17/2007 12/05/2011 Rhesus isoimmunization affec ting management of mother, antepartum condition 02/16/2006 12/17/19 08 documented as of this encounter (statuses as of 02/01/2023) [facility] Narrative* Problem Noted Date Diagnosed Date Resolved Date Irregular menstrual cycle 03/28/2012 Abdominal pain, right lower quadrant 12/05/2011 12/05/2011 Abdominal pain, generalized 03/27/2009 12/09/2009 Lump or mass in breast 12/17/200712/09 Mastodynia 12/17/2007 12/09/2009 Dysmenorrhea 12/17/2007 04/14/2014 Female infertility of unspecified origin 12/17/2007 12/05/2011 Rhesus isoimmunization affec ting management of mother, antepartum condition 02/16/2006 12/17/19 08 documented as of this encounter (statuses as of 02/09/2023) [facility] Narrative* Problem Noted Date Diagnosed Date Resolved Date Irregular menstrual cycle 03/28/2012 Abdominal pain, right lower quadrant 12/05/2011 12/05/2011 Abdominal pain, generalized 03/27/2009 12/09/2009 Lump or mass in breast 12/17/200712/09 Mastodynia 12/17/2007 12/09/2009 Dysmenorrhea 12/17/2007 04/14/2014 Female infertility of unspecified origin 12/17/2007 12/05/2011 Rhesus isoimmunization affec ting management of mother, antepartum condition 02/16/2006 12/17/19 08 documented as of this encounter (statuses as of 02/10/2023) [facility] Narrative* Problem Noted Date Diagnosed Date Resolved Date Irregular menstrual cycle 03/28/2012 Abdominal pain, right lower quadrant 12/05/2011 12/05/2011 Abdominal pain, generalized 03/27/2009 12/09/2009 Lump or mass in breast 12/17/200712/09 Mastodynia 12/17/2007 12/09/2009 Dysmenorrhea 12/17/2007 04/14/2014 Female infertility of unspecified origin 12/17/2007 12/05/2011 Rhesus isoimmunization affec ting management of mother, antepartum condition 02/16/2006 12/17/19 08 documented as of this encounter (statuses as of 03/03/2023) [facility] Narrative* Problem Noted Date Diagnosed Date Resolved Date Irregular menstrual cycle 03/28/2012 Abdominal pain, right lower quadrant 12/05/2011 12/05/2011 Abdominal pain, generalized 03/27/2009 12/09/2009 Lump or mass in breast 12/17/200712/09 Mastodynia 12/17/2007 12/09/2009 Dysmenorrhea 12/17/2007 04/14/2014 Female infertility of unspecified origin 12/17/2007 12/05/2011 Rhesus isoimmunization affec ting management of mother, antepartum condition 02/16/2006 12/17/19 08 documented as of this encounter (statuses as of 03/08/2023) [facility] Narrative* Problem Noted Date Diagnosed Date Resolved Date Irregular menstrual cycle 03/28/2012 Abdominal pain, right lower quadrant 12/05/2011 12/05/2011 Abdominal pain, generalized 03/27/2009 12/09/2009 Lump or mass in breast 12/17/200712/09 Mastodynia 12/17/2007 12/09/2009 Dysmenorrhea 12/17/2007 04/14/2014 Female infertility of unspecified origin 12/17/2007 12/05/2011 Rhesus isoimmunization affec ting management of mother, antepartum condition 02/16/2006 12/17/19 08 documented as of this encounter (statuses as of 03/08/2023) [facility] Narrative* Problem Noted Date Diagnosed Date Resolved Date Irregular menstrual cycle 03/28/2012 Abdominal pain, right lower quadrant 12/05/2011 12/05/2011 Abdominal pain, generalized 03/27/2009 12/09/2009 Lump or mass in breast 12/17/200712/09 Mastodynia 12/17/2007 12/09/2009 Dysmenorrhea 12/17/2007 04/14/2014 Female infertility of unspecified origin 12/17/2007 12/05/2011 Rhesus isoimmunization affec ting management of mother, antepartum condition 02/16/2006 12/17/19 08 documented as of this encounter (statuses as of 03/10/2023) [facility] Narrative* Problem Noted Date Diagnosed Date Resolved Date Irregular menstrual cycle 03/28/2012 Abdominal pain, right lower quadrant 12/05/2011 12/05/2011 Abdominal pain, generalized 03/27/2009 12/09/2009 Lump or mass in breast 12/17/200712/09 Mastodynia 12/17/2007 12/09/2009 Dysmenorrhea 12/17/2007 04/14/2014 Female infertility of unspecified origin 12/17/2007 12/05/2011 Rhesus isoimmunization affec ting management of mother, antepartum condition 02/16/2006 12/17/19 08 documented as of this encounter (statuses as of 03/14/2023) [facility] Narrative* Problem Noted Date Diagnosed Date Resolved Date Irregular menstrual cycle 03/28/2012 Abdominal pain, right lower quadrant 12/05/2011 12/05/2011 Abdominal pain, generalized 03/27/2009 12/09/2009 Lump or mass in breast 12/17/200712/09 Mastodynia 12/17/2007 12/09/2009 Dysmenorrhea 12/17/2007 04/14/2014 Female infertility of unspecified origin 12/17/2007 12/05/2011 Rhesus isoimmunization affec ting management of mother, antepartum condition 02/16/2006 12/17/19 08 documented as of this encounter (statuses as of 03/17/2023) [facility]10-[facility] History of Past illness Narrative* Problem Noted Date Diagnosed Date Resolved Date Irregular menstrual cycle 03/28/2012 Abdominal pain, right lower quadrant 12/05/2011 12/05/2011 Abdominal pain, generalized 03/27/2009 12/09/2009 Lump or mass in breast 12/17/200712/09 Mastodynia 12/17/2007 12/09/2009 Dysmenorrhea 12/17/2007 04/14/2014 Female infertility of unspecified origin 12/17/2007 12/05/2011 Rhesus isoimmunization affec ting management of mother, antepartum condition 02/16/2006 12/17/19 08 documented as of this encounter (statuses as of 03/29/2023) [facility] History of Past illness Narrative* Problem Noted Date Diagnosed Date Resolved Date Irregular menstrual cycle 03/28/2012 Abdominal pain, right lower quadrant 12/05/2011 12/05/2011 Abdominal pain, generalized 03/27/2009 12/09/2009 Lump or mass in breast 12/17/200712/09 Mastodynia 12/17/2007 12/09/2009 Dysmenorrhea 12/17/2007 04/14/2014 Female infertility of unspecified origin 12/17/2007 12/05/2011 Rhesus isoimmunization affec ting management of mother, antepartum condition 02/16/2006 12/17/19 08 documented as of this encounter (statuses as of 04/04/2023) [facility] History of Past illness Narrative* Problem Noted Date Diagnosed Date Resolved Date Irregular menstrual cycle 03/28/2012 Abdominal pain, right lower quadrant 12/05/2011 12/05/2011 Abdominal pain, generalized 03/27/2009 12/09/2009 Lump or mass in breast 12/17/200712/09 Mastodynia 12/17/2007 12/09/2009 Dysmenorrhea 12/17/2007 04/14/2014 Female infertility of unspecified origin 12/17/2007 12/05/2011 Rhesus isoimmunization affec ting management of mother, antepartum condition 02/16/2006 12/17/19 08 documented as of this encounter (statuses as of 04/05/2023) [facility] History of Past illness Narrative* Problem Noted Date Diagnosed Date Resolved Date Irregular menstrual cycle 03/28/2012 Abdominal pain, right lower quadrant 12/05/2011 12/05/2011 Abdominal pain, generalized 03/27/2009 12/09/2009 Lump or mass in breast 12/17/200712/09 Mastodynia 12/17/2007 12/09/2009 Dysmenorrhea 12/17/2007 04/14/2014 Female infertility of unspecified origin 12/17/2007 12/05/2011 Rhesus isoimmunization affec ting management of mother, antepartum condition 02/16/2006 12/17/19 08 documented as of this encounter (statuses as of 04/18/2023) [facility] History of Past illness Narrative* Problem Noted Date Diagnosed Date Resolved Date Irregular menstrual cycle 03/28/2012 Abdominal pain, right lower quadrant 12/05/2011 12/05/2011 Abdominal pain, generalized 03/27/2009 12/09/2009 Lump or mass in breast 12/17/200712/09 Mastodynia 12/17/2007 12/09/2009 Dysmenorrhea 12/17/2007 04/14/2014 Female infertility of unspecified origin 12/17/2007 12/05/2011 Rhesus isoimmunization affec ting management of mother, antepartum condition 02/16/2006 12/17/19 08 documented as of this encounter (statuses as of 04/30/2023) [facility] History of Past illness Narrative* Problem Noted Date Diagnosed Date Resolved Date Irregular menstrual cycle 03/28/2012 Abdominal pain, right lower quadrant 12/05/2011 12/05/2011 Abdominal pain, generalized 03/27/2009 12/09/2009 Lump or mass in breast 12/17/200712/09 Mastodynia 12/17/2007 12/09/2009 Dysmenorrhea 12/17/2007 04/14/2014 Female infertility of unspecified origin 12/17/2007 12/05/2011 Rhesus isoimmunization affec ting management of mother, antepartum condition 02/16/2006 12/17/19 08 documented as of this encounter (statuses as of 04/30/2023) [facility] History of Past illness Narrative* Problem Noted Date Diagnosed Date Resolved Date Irregular menstrual cycle 03/28/2012 Abdominal pain, right lower quadrant 12/05/2011 12/05/2011 Abdominal pain, generalized 03/27/2009 12/09/2009 Lump or mass in breast 12/17/200712/09 Mastodynia 12/17/2007 12/09/2009 Dysmenorrhea 12/17/2007 04/14/2014 Female infertility of unspecified origin 12/17/2007 12/05/2011 Rhesus isoimmunization affec ting management of mother, antepartum condition 02/16/2006 12/17/19 08 documented as of this encounter (statuses as of 05/30/2023) [facility] History of Past illness Narrative* Problem Noted Date Diagnosed Date Resolved Date Irregular menstrual cycle 03/28/2012 Abdominal pain, right lower quadrant 12/05/2011 12/05/2011 Abdominal pain, generalized 03/27/2009 12/09/2009 Lump or mass in breast 12/17/200712/09 Mastodynia 12/17/2007 12/09/2009 Dysmenorrhea 12/17/2007 04/14/2014 Female infertility of unspecified origin 12/17/2007 12/05/2011 Rhesus isoimmunization affec ting management of mother, antepartum condition 02/16/2006 12/17/19 08 documented as of this encounter (statuses as of 06/02/2023) [facility] History of Past illness Narrative* Problem Noted Date Diagnosed Date Resolved Date Irregular menstrual cycle 03/28/2012 Abdominal pain, right lower quadrant 12/05/2011 12/05/2011 Abdominal pain, generalized 03/27/2009 12/09/2009 Lump or mass in breast 12/17/200712/09 Mastodynia 12/17/2007 12/09/2009 Dysmenorrhea 12/17/2007 04/14/2014 Female infertility of unspecified origin 12/17/2007 12/05/2011 Rhesus isoimmunization affec ting management of mother, antepartum condition 02/16/2006 12/17/19 08 documented as of this encounter (statuses as of 06/08/2023) [facility] History of Past illness Narrative* Problem Noted Date Diagnosed Date Resolved Date Irregular menstrual cycle 03/28/2012 Abdominal pain, right lower quadrant 12/05/2011 12/05/2011 Abdominal pain, generalized 03/27/2009 12/09/2009 Lump or mass in breast 12/17/200712/09 Mastodynia 12/17/2007 12/09/2009 Dysmenorrhea 12/17/2007 04/14/2014 Female infertility of unspecified origin 12/17/2007 12/05/2011 Rhesus isoimmunization affec ting management of mother, antepartum condition 02/16/2006 12/17/19 08 documented as of this encounter (statuses as of 08/28/2023) [facility] History of Past illness Narrative* Problem Noted Date Diagnosed Date Resolved Date Irregular menstrual cycle 03/28/2012 Abdominal pain, right lower quadrant 12/05/2011 12/05/2011 Abdominal pain, generalized 03/27/2009 12/09/2009 Lump or mass in breast 12/17/200712/09 Mastodynia 12/17/2007 12/09/2009 Dysmenorrhea 12/17/2007 04/14/2014 Female infertility of unspecified origin 12/17/2007 12/05/2011 Rhesus isoimmunization affec ting management of mother, antepartum condition 02/16/2006 12/17/19 08 documented as of this encounter (statuses as of 10/05/2023) [facility] History of Past illness Narrative* Problem Noted Date Diagnosed Date Resolved Date Irregular menstrual cycle 03/28/2012 Abdominal pain, right lower quadrant 12/05/2011 12/05/2011 Abdominal pain, generalized 03/27/2009 12/09/2009 Lump or mass in breast 12/17/200712/09 Mastodynia 12/17/2007 12/09/2009 Dysmenorrhea 12/17/2007 04/14/2014 Female infertility of unspecified origin 12/17/2007 12/05/2011 Rhesus isoimmunization affec ting management of mother, antepartum condition 02/16/2006 12/17/19 08 documented as of this encounter (statuses as of 10/12/2023) [facility] History of Past illness Narrative* Problem Noted Date Diagnosed Date Resolved Date Irregular menstrual cycle 03/28/2012 Abdominal pain, right lower quadrant 12/05/2011 12/05/2011 Abdominal pain, generalized 03/27/2009 12/09/2009 Lump or mass in breast 12/17/200712/09 Mastodynia 12/17/2007 12/09/2009 Dysmenorrhea 12/17/2007 04/14/2014 Female infertility of unspecified origin 12/17/2007 12/05/2011 Rhesus isoimmunization affec ting management of mother, antepartum condition 02/16/2006 12/17/19 08 documented as of this encounter (statuses as of 10/12/2023) [facility] August 17, 2022 5:14am Note Date/Time August 17, 2022 3:59am [facility] Medical Records Department [address] [place] [id number] Emergency Department Summary 08/17/22 MR#: [id number] Acct: [id number] Name: DEANDRA MCCRAY Rep #:[id number] : 1985 37 From: Moiz Perez MD PCP: Dr. Jasbir Childress MD Status:REG ER Location: ED HPI History of Present Illness Chief Complaint: Chest Pain Informant: patient Narrative Narrative: Patient presents for combination of intermittent chest pains and separately, intermittent palpitations. Patient states the palpitations feel like a fluttering in her left lower chest/ribs, below her breast, that lasts for 3 to 4 seconds at a time and has been going on for a couple of months. She was seen at an outside hospital for it at 1 point but they did not find anything. She states sometimes she will trigger it with a sneeze. They do not occur along with the chest pains. When the palpitations do occur, she has had no lightheadedness, near-syncope or syncope, shortness of breath, nausea, sweating, or any other associated symptoms,but she does physically see things moving in the left lower chest wall where thediscomfort is located. The chest discomfort is separate. It is a sharp pain, left chest and sometimes shoots into her left axilla, and also last for seconds or minutes. No specific triggers such as deep inspiration, movement, exertion. Seems random. Having going on for 2 years intermittently, since I had COVID. She has been seen forthis several times at outside hospital, she states she had CT angiography to rule out pulmonary embolus and was told everything was normal several times. [facility] Medical History Carcinoma in situ of cervix uteri Depression Endometriosis GERD (gastroesophageal reflux disease) Herpes History of TIA (transient ischemic attack) History of tobacco use HPV (human papilloma virus) infection IBS (irritable bowel syndrome) Migraines Nicotine dependence Patent foramen ovale Home Medications naproxen 500 mg tablet 500 mg PO PRN PRN Pain 08/17/22 [History Last Taken Unknown] pantoprazole 40 mg tablet,delayed release 40 mg PO DAILY #30 tabs 08/17/22 [Rx Last Taken Unknown] Allergy/AdvReac Type Severity Reaction Status Date / Time Bleach (Sodium Hypochlorite) Allergy unknown Verified 08/17/22 03:25 codeine Allergy unknown Verified 08/17/22 03:25 hydrocodone Allergy unknown Verified 08/17/22 03:25 paroxetine [From Paxil] Allergy unknown Verified 08/17/22 03:25 Family History Grandfather Heart disease Diabetes CVA (cerebral vascular accident) Grandmother Heart disease Diabetes Mother SLE (systemic lupus erythematosus) Surgical History History of History of colonoscopy History of tubal ligation Social History Smoking Status: Current every day smoker tobacco type: cigarettes ROS ROS ED Constitutional Constitutional ED: Denies chills or fever(s) Eyes Eyes: Denies change in vision or diplopia ENT ENT ED: Denies rhinorrhea or sore throat Cardiovascular Cardiovascular: Reports as per HPI, chest pain and palpitations Respiratory/Chest Respiratory/Chest: Denies cough or dyspnea Gastrointestinal Gastrointestinal: Denies abdominal pain, diarrhea, nausea or vomiting Genitourinary Genitourinary ED: Denies dysuria or hematuria Musculoskeletal Musculoskeletal: Reports other Details: R great toe pain after injury ; Denies back pain or neck pain Integumentary Denies abscess or rash Neurologic Neurologic: Denies headache(s), paresthesias or weakness Psychiatric Psychiatric: Denies anxiety or suicidal thoughts EXAM Physical Exam Const Vital Signs: 08/17/22 03:19 08/17/22 03:19 08/17/22 04:52 Temperature 98.2 F Temperature Source Temporal Pulse Rate 89 67 Respiratory Rate 16 18 Respiratory Effort Normal Blood Pressure 113/65 101/65 Blood Pressure Mean 81 77 Pulse Ox 97 98 Oxygen Delivery Method Room Air Room Air Positive well nourished and well developed General Appearance ED: well developed and NAD HEENT Reports moist mucous membranes normocephalic and atraumatic Eyes PERRL and EOMs intact bilaterally Neck full ROM and supple Chest Wall inspection of chest normal and palpation of chest normal Resp normal respiratory effort and clear to auscultation bilaterally Cardio regular rate, regular rhythm and no murmurs GI non-tender and non-distended Auscultation: normoactive bowel sounds Palpation: soft Back/Spine no CVA tenderness General Back: other FROM Extremity normal to inspection Extremity Narrative: Tender at subungual hematoma right great toe General Extremety ED: Yes tenderness; Negative for edema or pulses abnormal General Extremity: Negative for edema or pulses abnormal Neuro oriented x3, CN's II-XII intact bilaterally and no sensory deficits noted Sensorium / Orientation: awake and alert Motor Exam: strength 5/5 throughout Skin no rashes or lesions noted and no wounds Heart Score History: Slightly/Non-Suspicious ECG: Normal Age: </= 45 years Risk Factors: 1 or 2 Risk Factors Troponin: </= Normal Limit Score: 1 MDM MDM MDM Narrative Medical decision making narrative: Out side rec reviewed: CT angiography of the chest on 11/27/2020 negative for PE or any other acute abnormality. EKG here normal. She did have some of the fluttering, we did not see any dysrhythmias or ectopy on the monitor, I suspect these are muscle fasciculationsespecially with the history and the location she is describing. Her PERC score is 0, and in addition to that she had a CTA for the same symptoms that was -1 or2 years ago, so I do not think she needs any further work-up for PE today. The rest of her blood work is unremarkable there are no electrolyte disturbances to suggest an obvious etiology for muscle fasciculations, and her high-sensitivity troponin is normal at 3. Stable for discharge, will prescribe her PPI to try for the sharp chest pains which may be esophageal in etiology. Lab Data Attestation: I reviewed the patient's lab results. Labs: Laboratory Results - last 24 hr 08/17/22 08/17/22 03:58 03:58 WBC 7.5 RBC 4.48 Hgb 13.6 Hct 41.5 MCV 92.6 MCH 30.4 MCHC 32.8 RDW Std Deviation 41.6 RDW Coeff of Nikko 12.1 Plt Count 180 MPV 11.0 Immature Gran % (Auto) 0.400 Neut % (Auto) 59.7 Lymph % (Auto) 29.9 Sevier % (Auto) 7.6 Eos % (Auto) 1.9 Baso % (Auto) 0.5 Absolute Neuts (auto) 4.5 Absolute Lymphs (auto) 2.25 Nucleated RBC % 0 Sodium 140 Potassium 3.6 Chloride 110 H Carbon Dioxide 26.0 Anion Gap 4 L BUN 15 Creatinine 0.72 Estim Creat Clear Calc 90.59 Est GFR (MDRD) Af Amer 116 Est GFR (MDRD) Non-Af 96 BUN/Creatinine Ratio 20.9 H Glucose 98 Calcium 8.5 Troponin I High Sens 3 Rhythm Strip Rhythm Strip: Sinus Rhythm Rate: 85 Ectopy: None EKG Initial EKG: Attestation: I personally reviewed and interpreted this EKG as follows: Interpretation: Sinus Rhythm and No Acute Injury Pattern Comments: nml EKG Prior EKG tracings: available for review Prior: Unchanged Discharge Plan Triage Chief Complaint: Chest Pain ED Provider: Moiz Perez Dx/Rx/DC Orders Clinical Impression: Atypical chest pain, Spasm of skeletal muscle of thorax Instructions: ED Chest Pain, Noncardiac Prescriptions: New pantoprazole 40 mg tablet,delayed release (DR/EC) 40 mg PO DAILY Qty: 30 0RF No Action naproxen 500 mg Tablet 500 mg PO PRN PRN (Reason: Pain) Primary Care Provider: Jasbir Childress Referrals: Jasbir Childress MD [Primary Care Provider] - 1-2 Weeks Disposition Disposition: Home, Self Care What to do if you have Problems For any increased pain, shortness of breath, bleeding, nausea or vomiting, chestpain, or any unexpected problems, contact your Primary Care Provider. Call [facility] ([phone]) or report to the closest Emergency Room. Call 911 if necessary. 08/17/22513 <Electronically signed by Moiz Perez MD> Cosigner Signature (if applicable): CC: Dr. Jasbir Childress MD ~ Signed [facility] Work Phone: Evaluation + Plan note No data available for this section [facility] Evaluation + Plan note Future Appointments [facility] Evaluation + Plan note Future Appointments Appointment Date:07/03/2023 09:00:00 AM Scheduled Provider:EDNISE HADLEY MD Location:[facility] Appointment Type:[facility] Evaluation + Plan note Future Appointments Appointment Date:08/07/2023 08:30:00 AM Scheduled Provider:DENISE HADLEY MD Location:[facility] Appointment Type:[facility] Appointment Date:09/11/2023 09:00:00 AM Scheduled Provider:DENISE HADLEY MD Location:[facility] Appointment Type:[facility] Future Scheduled Tests Laboratory* Complete Blood Count 07/31/23 [facility] Evaluation + Plan note Future Appointments Appointment Date:05/29/2024 08:30:00 AM Scheduled Provider:RHONDA LEA Location:[facility] Appointment Type:PC OV Appointment Date:06/13/2024 08:30:00 AM Scheduled Provider:DENISE HADLEY MD Location: [facility] Appointment Type: OV Annual Exam Future Scheduled Tests Laboratory* Complete Blood Count 07/31/23 Radiology* MA Mammo Screening Bilateral w/ Kyle 01/18/24 [facility] Evaluation + Plan note Future Appointments Appointment Date:06/13/2024 08:30:00 AM Scheduled Provider:DENISE HADLEY MD Location: [facility] Appointment Type: OV Annual Exam Appointment Date:07/10/2024 09:00:00 AM Scheduled Provider: Location:[facility] Appointment Type:MA Mammogram Screening Bilateral w/ Kyle Appointment Date:11/27/2024 09:00:00 AM Scheduled Provider:RHONDA LEA Location:[facility] Appointment Type:PC Wellness Annual Future Scheduled Tests Laboratory* Complete Blood Count 07/31/23 Radiology* MA Mammo Screening Bilateral w/ Kyle 07/10/24 * MA Mammo Screening Bilateral w/ Kyle 01/18/24 [facility] evaluation + Plan note Future Appointments Appointment Date:11/27/2024 09:00:00 AM Scheduled Provider:RHONDA LEA Location:[facility] Appointment Type:PC Wellness Annual Future Scheduled Tests Laboratory* Complete Blood Count 07/31/23 Radiology* MA Mammo Screening Bilateral w/ Kyle 07/10/24 * MA Mammo Screening Bilateral w/ Kyle 01/18/24 [facility] evaluation + Plan note Future Appointments Appointment Date:11/27/2024 09:00:00 AM Scheduled Provider:RHONDA LEA Location:[facility] Appointment Type:PC Wellness Annual Future Scheduled Tests Radiology* MA Mammo Screening Bilateral w/ Kyle 07/10/24 * MA Mammo Screening Bilateral w/ Kyle 01/18/24 [facility] Evaluation note* Diagnosis Palpitations- Primary SAI (obstructive sleep apnea) Obstructive sleep apnea (adult) (pediatric) Brain fog Near syncope Syncope and collapse Leg swelling Swelling of limb PFO (patent foramen ovale) Ostium secundum type atrial septal defect TIA (transient ischemic attack) Unspecified transient cerebral ischemia [facility] Diagnosis Labial cyst- Primary Other specified noninflammatory disorder of vulva and perineum Chronic folliculitis Other specified disease of hair and hair follicles [facility] Diagnosis Encounter for gynecological examination (general) (routine) without abnormal findings- Primary Screening for cervical cancer Screening for malignant neoplasm of the cervix Encounter for screening for human papillomavirus (HPV) Special screening examination for human papillomavirus (HPV) documented in this encounter [facility] noteNo assessment information availableWGalion [facility] Work Phone: Evaluation note* Diagnosis Chronic insomnia- Primary Insomnia, unspecified Hypersomnia Hypersomnia, unspecified [facility]* Diagnosis 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 Chronic migraine without aura, with intractable migraine, so stated, without mention of status migrainosus 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 Hemiplegic migraine, with intractable migraine, so stated, without mention of status migrainosus [facility] Diagnosis Intractable 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- Primary Chronic migraine without aura, with intractable migraine, so stated, without mention of status migrainosus Action tremor Essential and other specified 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 Hemiplegic migraine, with intractable migraine, so stated, without mention of status migrainosus [facility] Diagnosis Pelvic pain in female- Primary Unspecified symptom associated with female genital organs [facility] Diagnosis Pelvic pain in female Unspecified symptom associated with female genital organs [facility]* Diagnosis Pelvic and perineal pain- Primary Unspecified symptom associated with female genital organs [facility] Chronic constipation- Primary Unspecified constipation Lower abdominal pain Abdominal pain, other specified site Hiatal hernia with GERD [facility] Diagnosis Chronic constipation Unspecified constipation [facility] Diagnosis Concussion with loss of consciousness, initial encounter- Primary Action tremor Essential and other specified forms of tremor Intractable 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 Chronic migraine without aura, with intractable migraine, so stated, without mention of status migrainosus 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 Hemiplegic migraine, with intractable migraine, so stated, without mention of status migrainosus 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 Injury of head, initial encounter Blurred vision Other specified visual disturbances [facility] Diagnosis Post-concussion syndrome- Primary Postconcussion syndrome Blurred vision Other specified visual disturbances Facial myokymia Other facial nerve disorders [facility] Diagnosis Ovarian cyst, right- Primary Other and unspecified ovarian cyst Chronic pelvic pain in female Unspecified symptom associated with female genital organs [facility] Diagnosis 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 Chronic migraine without aura, with intractable migraine, so stated, without mention of status migrainosus 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 Hemiplegic migraine, with intractable migraine, so stated, without mention of status migrainosus [facility] Injury of head, initial encounter Concussion with loss of consciousness, initial encounter [facility] Diagnosis Pelvic and perineal pain Unspecified symptom associated with female genital organs [facility] Chronic constipation- Primary Unspecified constipation Chronic pelvic pain in female Unspecified symptom associated with female genital organs Hiatal hernia with GERD [facility] Encounter for screening mammogram for breast cancer [facility] Diagnosis Chronic cough- Primary Cough Continuous tobacco abuse Chronic insomnia Insomnia, unspecified PFO (patent foramen ovale) Ostium secundum type atrial septal defect [facility] Diagnosis Dog bite of face, initial encounter- Primary Need for Tdap vaccination Need for prophylactic vaccination with combined eqdzktbjcg-ffepgzn-evdsqozlw (DTP) vaccine Encounter for immunization Need for other specified prophylactic vaccination against single bacterial disease [facility] Diagnosis Light headed- Primary Dizziness and giddiness Chest pain, unspecified type Hypotension, unspecified hypotension type [facility] Diagnosis Positional lightheadedness- Primary Dizziness and giddiness Intractable 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 Chronic migraine without aura, with intractable migraine, so stated, without mention of status migrainosus 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 Dizziness Dizziness and giddiness Palpitations Left hand weakness Muscle weakness (generalized) [facility] Diagnosis Chronic cough Cough [facility] Diagnosis Thyroid function test abnormal- Primary Nonspecific abnormal results of thyroid function study Tobacco abuse disorder Tobacco use disorder Establishing care with new doctor, encounter for Other reasons for seeking consultation Hypotension, unspecified hypotension type [facility] Diagnosis Thyroid function test abnormal- Primary Nonspecific abnormal results of thyroid function study Tobacco abuse disorder Tobacco use disorder Establishing care with new doctor, encounter for Other reasons for seeking consultation Palpitations- Primary [facility] Diagnosis Thyroid function test abnormal- Primary Nonspecific abnormal results of thyroid function study Tobacco abuse disorder Tobacco use disorder Establishing care with new doctor, encounter for Other reasons for seeking consultation Chronic cough Cough [facility] Diagnosis Thyroid function test abnormal- Primary Nonspecific abnormal results of thyroid function study Tobacco abuse disorder Tobacco use disorder Establishing care with new doctor, encounter for Other reasons for seeking consultation Chronic constipation- Primary Unspecified constipation Hiatal hernia with GERD Left upper quadrant abdominal pain [facility] Diagnosis Thyroid function test abnormal- Primary Nonspecific abnormal results of thyroid function study Tobacco abuse disorder Tobacco use disorder Establishing care with new doctor, encounter for Other reasons for seeking consultation Shortness of breath- Primary Precordial pain PFO (patent foramen ovale) Ostium secundum type atrial septal defect [facility] Diagnosis Thyroid function test abnormal- Primary Nonspecific abnormal results of thyroid function study Tobacco abuse disorder Tobacco use disorder Establishing care with new doctor, encounter for Other reasons for seeking consultation Cervicalgia- Primary Radiculopathy, cervical region Brachial neuritis or radiculitis nos Intractable headache, unspecified chronicity pattern, unspecified headache type Other chest pain Tingling Disturbance of skin sensation Chronic insomnia Insomnia, unspecified Shift work sleep disorder Circadian rhythm sleep disorder, shift work type Demyelinating disease of central nervous system (HCC) Demyelinating disease of central nervous system, unspecified [facility] Diagnosis Thyroid function test abnormal- Primary Nonspecific abnormal results of thyroid function study Tobacco abuse disorder Tobacco use disorder Establishing care with new doctor, encounter for Other reasons for seeking consultation Intractable 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- Primary Chronic migraine without aura, with intractable migraine, so stated, without mention of status migrainosus Altered awareness, transient Transient alteration of awareness 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 Dizziness Dizziness and giddiness Positional lightheadedness Dizziness and giddiness Palpitations Left hand weakness Muscle weakness (generalized) 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 Hemiplegic migraine, with intractable migraine, so stated, without mention of status migrainosus Concussion with loss of consciousness, initial encounter [facility] Diagnosis Thyroid function test abnormal- Primary Nonspecific abnormal results of thyroid function study Tobacco abuse disorder Tobacco use disorder Establishing care with new doctor, encounter for Other reasons for seeking consultation Intractable 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- Primary Chronic migraine without aura, with intractable migraine, so stated, without mention of status migrainosus [facility] Diagnosis Thyroid function test abnormal- Primary Nonspecific abnormal results of thyroid function study Tobacco abuse disorder Tobacco use disorder Establishing care with new doctor, encounter for Other reasons for seeking consultation Demyelinating disease of central nervous system (HCC) Demyelinating disease of central nervous system, unspecified Cervicalgia Radiculopathy, cervical region Brachial neuritis or radiculitis nos [facility] Diagnosis Thyroid function test abnormal- Primary Nonspecific abnormal results of thyroid function study Tobacco abuse disorder Tobacco use disorder Establishing care with new doctor, encounter for Other reasons for seeking consultation Cervical stenosis of spine- Primary Spinal stenosis in cervical region [facility] Diagnosis Thyroid function test abnormal- Primary Nonspecific abnormal results of thyroid function study Tobacco abuse disorder Tobacco use disorder Establishing care with new doctor, encounter for Other reasons for seeking consultation Palpitations- Primary [facility] Diagnosis Thyroid function test abnormal- Primary Nonspecific abnormal results of thyroid function study Tobacco abuse disorder Tobacco use disorder Establishing care with new doctor, encounter for Other reasons for seeking consultation SOB (shortness of breath)- Primary Shortness of breath History of 2019 novel coronavirus disease (COVID-19) Surgical menopause Symptomatic states associated with artificial menopause [facility] Diagnosis Thyroid function test abnormal- Primary Nonspecific abnormal results of thyroid function study Tobacco abuse disorder Tobacco use disorder Establishing care with new doctor, encounter for Other reasons for seeking consultation Insomnia, unspecified type- Primary Shift work sleep disorder Circadian rhythm sleep disorder, shift work type Depression, unspecified depression type Cervicalgia Radiculopathy, cervical region Brachial neuritis or radiculitis nos Intractable headache, unspecified chronicity pattern, unspecified headache type Tingling Disturbance of skin sensation Palpitations [facility] Diagnosis Thyroid function test abnormal- Primary Nonspecific abnormal results of thyroid function study Tobacco abuse disorder Tobacco use disorder Establishing care with new doctor, encounter for Other reasons for seeking consultation Encounter for screening mammogram for breast cancer [facility] Diagnosis Thyroid function test abnormal- Primary Nonspecific abnormal results of thyroid function study Tobacco abuse disorder Tobacco use disorder Establishing care with new doctor, encounter for Other reasons for seeking consultation Post-COVID syndrome- Primary [facility] Diagnosis Thyroid function test abnormal- Primary Nonspecific abnormal results of thyroid function study Tobacco abuse disorder Tobacco use disorder Establishing care with new doctor, encounter for Other reasons for seeking consultation Post-COVID syndrome- Primary [facility] Diagnosis Thyroid function test abnormal- Primary Nonspecific abnormal results of thyroid function study Tobacco abuse disorder Tobacco use disorder Establishing care with new doctor, encounter for Other reasons for seeking consultation Shortness of breath- Primary [facility] Diagnosis Thyroid function test abnormal- Primary Nonspecific abnormal results of thyroid function study Tobacco abuse disorder Tobacco use disorder Establishing care with new doctor, encounter for Other reasons for seeking consultation Chronic constipation- Primary Unspecified constipation [facility] Diagnosis Thyroid function test abnormal- Primary Nonspecific abnormal results of thyroid function study Tobacco abuse disorder Tobacco use disorder Establishing care with new doctor, encounter for Other reasons for seeking consultation Chronic cough Cough [facility] Diagnosis Thyroid function test abnormal- Primary Nonspecific abnormal results of thyroid function study Tobacco abuse disorder Tobacco use disorder Establishing care with new doctor, encounter for Other reasons for seeking consultation Intractable 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 Chronic migraine without aura, with intractable migraine, so stated, without mention of status migrainosus [facility] Diagnosis Thyroid function test abnormal- Primary Nonspecific abnormal results of thyroid function study Tobacco abuse disorder Tobacco use disorder Establishing care with new doctor, encounter for Other reasons for seeking consultation Hypokalemia- Primary Hypopotassemia Hyperchloremia Electrolyte and fluid disorders not elsewhere classified Hypocarbia Electrolyte and fluid disorders not elsewhere classified [facility] Diagnosis Thyroid function test abnormal- Primary Nonspecific abnormal results of thyroid function study Tobacco abuse disorder Tobacco use disorder Establishing care with new doctor, encounter for Other reasons for seeking consultation Hypocarbia- Primary Electrolyte and fluid disorders not elsewhere classified Hypokalemia Hypopotassemia Hyperchloremia Electrolyte and fluid disorders not elsewhere classified [facility] Diagnosis Onset Date Resolution Status Admit Date Abdominal pain noneactive November 27, 2024 2:23pm [facility] Work Phone: Hospital Discharge instructions No data available for this section [facility] Progress note No data available for this section [facility] Reason for referral (narrative)* Diagnostic Procedure Only (Routine) - Authorized Specialty Diagnoses / Procedures Referred By Contac t Referred To Contact [facility] Diagnoses Pelvic pain in female Procedures PELVIC US WHI US PELVIC NONOBSTETRIC REAL-TIME IMAGE COMPLETE Micheline Parr APRN.GEOGRAPHY HEAD [address] [place] [address] [facility] [place] [address] [place] [address] Referral ID Status Reason Start Date Expiration Date Visits Requested Visits Authorized [id number] Authorized Auto-Generat ed Referral 01/26/2023 01/26/2024 1 1 [facility] for referral (narrative)* Diagnostic Procedure Only (Routine) - Pending Review Specialty Diagnoses / Procedures Referred By Contac t Referred To Contact XR IMAGING Diagnoses Chronic constipation Procedures XR ABDOMEN 1V SUPINE RADIOLOGIC EXAM ABDOMEN 1 VIEW Breanne Bowden PA-C [address] [place] [address] [place] [address] Referral ID Status Reason Start Date Expiration Date Visits Requested Visits Authorized [id number] Pending Review Auto-Generat ed Referral 03/08/2023 04/06/2024 1 1 [facility] for referral (narrative)* Diagnostic Procedure Only (Routine) - Pending Review Specialty Diagnoses / Procedures Referred By Contac t Referred To Contact XR IMAGING Diagnoses Chronic constipation Chronic pelvic pain in female Procedures XR ABDOMEN 1V SUPINE RADIOLOGIC EXAM ABDOMEN 1 VIEW Breanne Bowden PA-C [address] [place] [address] [place] [address] Referral ID Status Reason Start Date Expiration Date Visits Requested Visits Authorized [id number] Pending Review Auto-Generat ed Referral 07/06/2024 1 1 * Medication Prior Authorization - Closed Specialty Diagnoses / Procedures Referred By Contac t Referred To Contact Diagnoses Chronic constipation Chronic pelvic pain in female Breanne Bowden PA-C [address] [place] [address] Referral ID Status Reason Start Date Expiration Date Visits Re quested Visits Authorized [id number] Closed 1 1 [facility] for referral (narrative)* Diagnostic Procedure Only (Routine) - Pending Review Specialty Diagnoses / Procedures Referred By Contac t Referred To Contact [facility] Diagnoses Encounter for screening mammogram for breast cancer Procedures DAVID SCREENING SCREENING MAMMOGRAPHY BI 2-VIEW BREAST INC HARRIS Childress, Jm Woods MD [address] [facility] [place] [address] [facility] [address] [place] [address] Referral ID Status Reason Start Date Expiration Date Visits Requested Visits Authorized [id number] Pending Review Auto-Generat ed Referral 08/23/2023 09/21/2024 1 1 [facility] for referral (narrative)* Outpatient Procedure (Routine) - Pending Review Specialty Diagnoses / Procedures Referred By Contac t Referred To [facility] Diagnoses Left hand weakness Procedures EMG(NEURO/NI) NERVE CONDUCTION STUDIES 9-10 STUDIES Karen Saul PA-C [address] [place] [address] [facility] [place] [address] [place] [address] Referral ID Status Reason Start Date Expiration Date Visits Requested Visits Authorized [id number] Pending Review Auto-Generat ed Referral 01/04/2024 01/03/2025 1 1 [facility] for referral (narrative)* Diagnostic Procedure Only (Routine) - New Request Specialty Diagnoses / Procedures Referred By Contac t Referred To Contact XR IMAGING Diagnoses Chronic constipation Left upper quadrant abdominal pain Procedures XR ABDOMEN 2V ROUTINE SUPINE W UPRIGHT/DECUB/CTL RADIOLOGIC EXAM ABDOMEN 2 VIEWS Bowen Ma, SPECIALTY TRIMMER.GEOGRAPHY HEAD [address] [place] [address] [place] [address] Referral ID Status Reason Start Date Expiration Date Visits Requested Visits Authorized [id number] New Request Auto-Generat ed Referral 03/19/2024 04/18/2025 1 1 [facility] for referral (narrative)* Outpatient Procedure (Routine) - Pending Review Specialty Diagnoses / Procedures Referred By Scotac t Referred To Contact [facility] Diagnoses Shortness of breath Procedures STRESS ECHO TREADMILL ECHO TTHRC R-T 2D W/WO M-MODE COMPLETE REST&ST Michele Gandhi MD [address], [address] [place] [address] [facility] [address] [place] [address] Referral ID Status Reason Start Date Expiration Date Visits Requested Visits Authorized [id number] Pending Review Auto-Generat ed Referral 04/01/2024 03/25/2025 1 1 * Outpatient Procedure (Routine) - Pending Review Specialty Diagnoses / Procedures Referred By Contac t Referred To Contact [facility] Diagnoses Shortness of breath Procedures ECHO ECHO TTHRC R-T 2D W/WOM-MODE COMPL SPEC&COLR D Michele Gandhi MD [address], [address] [place] [address] [address] Referral ID Status Reason Start Date Expiration Date Visits Requested Visits Authorized [id number] Pending Review Auto-Generat ed Referral 04/01/2024 03/25/2025 1 1 [facility] for referral (narrative)* Outpatient Procedure (Routine) - New Request Specialty Diagnoses / Procedures Referred By Contac t Referred To Contact [facility] Diagnoses Altered awareness, transient Procedures EPIL EEG ROUTINE ELECTROENCEPHALOGRAM REC COMA/SLEEP ONLY Karen Saul PA-C [address] [place] [address] [facility] [place] [address] [place] [address] Referral ID Status Reason Start Date Expiration Date Visits Requested Visits Authorized [id number] New Request Auto-Generat ed Referral 4 04/05/2025 1 1 [facility] for referral (narrative)No reason for referral information available[facility]rewster [facility] Services Work Phone: Summary Purpose Family History No Family History Records Found Relationship Condition Age at Onset Recorded Date/T pete grandfather Cardiac disease Unknown Diabetes mellitus Unknown Cerebrovascular accident (CVA) Unknown grandmother Cardiac disease Unknown mother Systemic lupus erythematosus Unknown Relationship Condition Age at Onset Recorded Date/T pete grandfather Cardiac disease Unknown Diabetes mellitus Unknown Cerebrovascular accident (CVA) Unknown Myocardial infarction Unknown grandmother Cardiac disease Unknown mother Systemic lupus erythematosus Unknown Hypertension Unknown Hyperlipidemia Unknown Chronic obstructive pulmonary disease Unk nown Heart failure Unknown father Coronary artery disease Unknown sister Addiction Unknown Developmental delay Unknown grandfather Malignant neoplasm Unknown Advance Directives No Advanced Directives Records FoundDocuments on File Type Date Recorded Patient Kiln Drawer Expl anation Advance Directive(s) 11/03/2020 12:37 PM Advance Directive(s) 04/22/2020 8:06 AM Documents on File Type Date Recorded Patient Kiln Drawer Expl anation Advance Directive(s) 11/03/2020 12:37 PM Advance Directive(s) 04/22/2020 8:06 AM Advance Directive Response Recorded Date/ Time Living Will No August 17, 023 3:19am Power of Cod Clerk No August 17, 2022 3:19am Advance Directive Response Recorded Date/ Time Living Will No April 11 7:09pm Power of Cod Clerk No April 11, 2023 7:09pm Reason for Referral Specialty Diagnoses / Procedures Referred By Contac t Referred To Contact Neurology Diagnoses Cervical stenosis of spine Procedures CONSULT TO NEUROLOGY OFFICE/OUTPATIENT NEW HIGH MDM 60 MINUTES Karen Saul PA-C [address] [place] [address] Referral ID Status Reason Start Date Expiration Date Visits Requested Visits Authorized [id number] Authorized PCP Requested Referral 05/03/2024 05/03/2025 1 1 Specialty Diagnoses / Procedures Referred By Contac t Referred To Contact Diagnoses Intractable 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 Karen Saul PA-C [address] [place] [address] Referral ID Status Reason Start Date Expiration Date V isits Requested Visits Authorized [id number] Pending Review 04/09/2024 06/08/2024 1 1 Specialty Diagnoses / Procedures Referred By Contac t Referred To Contact MR IMAGING Diagnoses Demyelinating disease of central nervous system (HCC) Cervicalgia Radiculopathy, cervical region Procedures MRI CERVICAL SPINE WO/W IVCON MRI SPINAL CANAL CERVICAL W/O & W/CONTR KARLAL Jovon Wilder Jr., MD [address] [facility] [address] [place] [address] [place] [address] Referral ID Status Reason Start Date Expiration Date Visits Requested Visits Authorized [id number] Pending Review Auto-Generat ed Referral 04/01/2024 05/01/2025 1 1 Specialty Diagnoses / Procedures Referred By Contac t Referred To Contact Cardiology Diagnoses Palpitations Procedures CONSULT TO CARDIOLOGY OFFICE/OUTPATIENT [facility] 60 MINUTES Karen Saul PA-C [address] [place] [address] Referral ID Status Reason Start Date Expiration Date Visits Requested Visits Authorized [id number] Authorized PCP Requested Referral 02/14/2024 02/13/2025 1 1 Specialty Diagnoses / Procedures Referred By Contac t Referred To Contact Diagnoses Chronic insomnia Procedures CONSULT TO SLEEP MEDICINE - ADULT OFFICE/OUTPATIENT [facility] 60 MINUTES Jud Denny, SPECIALTY TRIMMER.GEOGRAPHY HEAD [address] [facility] [place] [address] Referral ID Status Reason Start Date Expiration Date Visits Requested Visits Authorized [id number] Authorized PCP Requested Referral 10/04/2023 10/03/2024 1 1 Specialty Diagnoses / Procedures Referred By Contac t Referred To Contact [facility] Diagnoses Chronic cough Procedures SPIROMETRY - BASELINE AND POST DILATOR BRNCDILAT RSPSE SPMTRY PRE&POST-BRNCDILAT ADMN Jud Denny, SPECIALTY TRIMMER.GEOGRAPHY HEAD [address] [facility] [address] [facility] [place] [address] [place] [address] Referral ID Status Reason Start Date Expiration Date Visits Requested Visits Authorized [id number] Authorized Auto-Generat ed Referral 10/04/2023 11/02/2024 1 1 Specialty Diagnoses / Procedures Referred By Contac t Referred To Contact Diagnoses Chronic pelvic pain in female Procedures CONSULT TO LOAN AUDITOR PELVIC PAIN OFFICE/OUTPATIENT [facility] 60-74 MINUTES Micheline Parr APRN.GEOGRAPHY HEAD [address] [facility] [place] [address] Referral ID Status Reason Start Date Expiration Date Visits Requested Visits Authorized [id number] Authorized PCP Requested Referral Auto-Generate d Referral 04/03/2023 04/02/2024 1 1 Specialty Diagnoses / Procedures Referred By Contac t Referred To Contact US IMAGING Diagnoses Ovarian cyst, right Procedures US FEMALE PELVIS TRANSVAG US TRANSVAGINAL Micheline Parr APRN.GEOGRAPHY HEAD [address] [facility] [place] [address] [place] [address] Referral ID Status Reason Start Date Expiration Date Visits Requested Visits Authorized [id number] Pending Review Auto-Generat ed Referral 05/02/2024 1 1 Specialty Diagnoses / Procedures Referred By Contac t Referred To Contact Optometry Diagnoses Blurred vision Procedures CONSULT TO OPTOMETRY OFFICE/OUTPATIENT [facility] 60-74 MINUTES Karen Saul PA-C [address] [place] [address] Referral ID Status Reason Start Date Expiration Date Visits Requested Visits Authorized [id number] Authorized PCP Requested Referral 03/10/2023 03/09/2024 1 1 Specialty Diagnoses / Procedures Referred By Contac t Referred To Contact CT IMAGING Diagnoses Injury of head, initial encounter Concussion with loss of consciousness, initial encounter Procedures CT BRAIN WO IVCON CT HEAD/BRAIN W/O CONTRAST MATERIAL Karen Saul PA-C [address] [place] [address] [place] [address] Referral ID Status Reason Start Date Expiration Date Visits Requested Visits Authorized [id number] Additional Clinical Info Needed Auto-Generat ed Referral 03/10/2023 04/08/2024 1 1 Specialty Diagnoses / Procedures Referred By Contac t Referred To Contact MR IMAGING Diagnoses Pelvic and perineal pain Procedures MRI FEMALE PELVIS WO/W IVCON MRI PELVIS W/O & W/CONTRAST MATERIAL Micheline Parr, [place].GEOGRAPHY HEAD [address] [place] [phone] [place] [address] Referral ID Status Reason Start Date Expiration Date Visits Requested Visits Authorized [id number] Pending Review Auto-Generat ed Referral 02/10/2023 03/11/2024 1 1 Specialty Diagnoses / Procedures Referred By Contac t Referred To Contact Karen Saul PA-C [address] [place] [id number] Referral ID Status Reason Start Date Expiration Date Visits Re quested Visits Authorized [id number] Closed 1 1 Specialty Diagnoses / Procedures Referred By Contac t Referred To Contact Neurology Diagnoses Pituitary tumor Procedures CONSULT TO NEUROLOGY OFFICE/OUTPATIENT [facility] 60-74 MINUTES Karen Saul PA-C [address] [place] [id number] Referral ID Status Reason Start Date Expiration Date Visits Requested Visits Authorized [id number] Pending Review PCP Requested Referral 08/18/2022 08/18/2023 1 1 Specialty Diagnoses / Procedures Referred By Contac t Referred To Contact Neurology Diagnoses Action tremor Myoclonus Procedures CONSULT TO NEUROLOGY OFFICE/OUTPATIENT [facility] 60-74 MINUTES Karen Saul PA-C [facility] [place] [address] Referral ID Status Reason Start Date Expiration Date Visits Requested Visits Authorized [id number] Pending Review PCP Requested Referral 08/18/2022 08/18/2023 1 1 Specialty Diagnoses / Procedures Referred By Contac t Referred To Contact MR IMAGING Diagnoses Pituitary tumor Intractable 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 Procedures MRI BRAIN WO/W IVCON MRI BRAIN BRAIN STEM W/O W/CONTRAST MATERIAL Karen Saul PA-C [address] [place] [address] Mr Imaging Referral ID Status Reason Start Date Expiration Date Visits Requested Visits Authorized [id number] Pending Review Auto-Generat ed Referral 08/18/2022 09/17/2023 1 1 Specialty Diagnoses / Procedures Referred By Contac t Referred To Contact Diagnoses Chronic insomnia Hypersomnia Procedures CONSULT TO SLEEP MEDICINE - ADULT OFFICE/OUTPATIENT [facility] 60-74 MINUTES Jud Denny APRN.GEOGRAPHY HEAD [address] [place] [address] Referral ID Status Reason Start Date Expiration Date Visits Requested Visits Authorized [id number] Authorized PCP Requested Referral 08/08/2022 08/08/2023 1 1 Specialty Diagnoses / Procedures Referred By Contac t Referred To Contact Neurology Diagnoses Brain fog Near syncope Procedures CONSULT TO NEUROLOGY OFFICE/OUTPATIENT [facility] 60-74 MINUTES Rashmi Castañeda APRN.GEOGRAPHY HEAD [address] [place] [id number] Referral ID Status Reason Start Date Expiration Date Visits Requested Visits Authorized [id number] Authorized PCP Requested Referral 10/25/2021 10/25/2022 1 1 Specialty Diagnoses / Procedures Referred By Contac t Referred To Contact Diagnoses Palpitations SAI (obstructive sleep apnea) Procedures CONSULT TO PULMONARY MEDICINE Rashmi Castañeda APRN.GEOGRAPHY HEAD [address] [place] [address] Referral ID Status Reason Start Date Expiration Date Visits Requested Visits Authorized [id number] Ref Not Required PCP Requested Referral 10/25/2021 01/23/2022 1 1 Specialty Diagnoses / Procedures Referred By Contac t Referred To [facility] Diagnoses Palpitations Procedures ECHO ECHO TTHRC R-T 2D W/WOM-MODE COMPL SPEC&COLR D Rashmi Castañeda APRN.GEOGRAPHY HEAD [address] [place] [address] Fax: [facility] [address] [place] [address] Referral ID Status Reason Start Date Expiration Date Visits Requested Visits Authorized [id number] Pending Review Auto-Generat ed Referral 10/25/2021 10/25/2022 1 1 Chief Complaint and Reason for Visit Chief Complaint CP Chief Complaint GENERAL ILLNESS Chief Complaint Admit Date Abdominal pain November 27, 2024 2:23p m Reason for Visit Admit Date Abdominal pain November 27, 2024 2:23p m Chief Complaint Admit Date Abdominal pain November 27, 2024 2:23p m 1 M FU December 25, 2024 10:00 am Reason for Visit Admit Date Bloating November 27, 2024 2:23p m Constipation November 27, 2024 2:23p m Nausea November 27, 2024 2:23p m Abdominal pain November 27, 2024 2:23p m Bloating December 25, 2024 10:00 am Constipation December 25, 2024 10:00 am LUQ pain December 25, 2024 10:00 am Nausea December 25, 2024 10:00 am Chief Complaint Admit Date Abdominal pain November 27, 2024 2:23p m 1 M FU December 25, 2024 10:00 am LUQ PAIN, ADD SPLEEN January 01, 2025 7:25 am Medications Administered Section Inactive Administered Medications - up to 3 most recent administrations Medication Order MAR Action Action Date Dose Rate Site proparacaine 0.5 % 1 Drop (ALCAINE) 1 Drop, BOTH EYES, ONCE, 1 dose, On Mon03/17/23 at 0900, FOR THE EYE Given 03/17/2023 9:00 AM EDT 1 Drop tropicamide 1 % 1 Drop (MYDRIACYL) 1 Drop, BOTH EYES, ONCE, 1 dose, On Mon03/17/23 at 0900, FOR THE EYE Given 03/17/2023 9:00 AM EDT 1 Drop Additional Source Comments INFORMATION SOURCE (unrecogn ized section and content) DATE CREATED AUTHOR 06/04/2018 [facility] DATE CREATED AUTHOR AUTHOR'S ORGANIZ ATION 08/04/2022 [facility] DATE CREATED AUTHOR AUTHOR'S ORGANIZ ATION 02/06/2024 [facility] ([place]) DATE CREATED AUTHOR AUTHOR'S ORGANIZ ATION 09/06/[address] [facility] DATE CREATED AUTHOR AUTHOR'S ORGANIZ ATION 11/20/2024 [facility] DATE CREATED AUTHOR AUTHOR'S ORGANIZ ATION 01/03/2025 [facility] DATE CREATED AUTHOR AUTHOR'S ORGANIZ ATION 01/05/2025 [facility] DATE CREATED AUTHOR AUTHOR'S ORGANIZ ATION 01/11/2025 [facility] Source Comments (unrecognize d section and content) In the event this informatio n is protected by the Federal Confidentiality of Alcohol and Drug Abuse Patient Records regulations: The Federal rules restrict any use of the information to criminally investigate or prosecute any alcohol or drug abuse patient.[facility] the event this information is protected by the Federal Confidentiality of Alcohol and Drug Abuse Patient Records regulations: The Federal rules restrict any use of the information to criminally investigate or prosecute any alcohol or drug abuse patient.[facility] HospitalIn the event this information is protected by the Federal Confidentiality of Alcohol and Drug Abuse Patient Records regulations: The Federal rules restrict any use of the information to criminally investigate or prosecute any alcohol or drug abuse patient.[facility] HospitalIn the event this information is protected by the Federal Confidentiality of Alcohol and Drug Abuse Patient Records regulations: The Federal rules restrict any use of the information to criminally investigate or prosecute any alcohol or drug abuse patient.[facility] HospitalIn the event this information is protected by the Federal Confidentiality of Alcohol and Drug Abuse Patient Records regulations: The Federal rules restrict any use of the information to criminally investigate or prosecute any alcohol or drug abuse patient.[facility] HospitalIn the event this information is protected by the Federal Confidentiality of Alcohol and Drug Abuse Patient Records regulations: The Federal rules restrict any use of the information to criminally investigate or prosecute any alcohol or drug abuse patient.[facility] HospitalIn the event this information is protected by the Federal Confidentiality of Alcohol and Drug Abuse Patient Records regulations: The Federal rules restrict any use of the information to criminally investigate or prosecute any alcohol or drug abuse patient.[facility] HospitalIn the event this information is protected by the Federal Confidentiality of Alcohol and Drug Abuse Patient Records regulations: The Federal rules restrict any use of the information to criminally investigate or prosecute any alcohol or drug abuse patient.[facility] HospitalIn the event this information is protected by the Federal Confidentiality of Alcohol and Drug Abuse Patient Records regulations: The Federal rules restrict any use of the information to criminally investigate or prosecute any alcohol or drug abuse patient.[facility] HospitalIn the event this information is protected by the Federal Confidentiality of Alcohol and Drug Abuse Patient Records regulations: The Federal rules restrict any use of the information to criminally investigate or prosecute any alcohol or drug abuse patient.[facility] HospitalIn the event this information is protected by the Federal Confidentiality of Alcohol and Drug Abuse Patient Records regulations: The Federal rules restrict any use of the information to criminally investigate or prosecute any alcohol or drug abuse patient.[facility] HospitalIn the event this information is protected by the Federal Confidentiality of Alcohol and Drug Abuse Patient Records regulations: The Federal rules restrict any use of the information to criminally investigate or prosecute any alcohol or drug abuse patient.[facility] HospitalIn the event this information is protected by the Federal Confidentiality of Alcohol and Drug Abuse Patient Records regulations: The Federal rules restrict any use of the information to criminally investigate or prosecute any alcohol or drug abuse patient.[facility] HospitalIn the event this information is protected by the Federal Confidentiality of Alcohol and Drug Abuse Patient Records regulations: The Federal rules restrict any use of the information to criminally investigate or prosecute any alcohol or drug abuse patient.[facility] HospitalIn the event this information is protected by the Federal Confidentiality of Alcohol and Drug Abuse Patient Records regulations: The Federal rules restrict any use of the information to criminally investigate or prosecute any alcohol or drug abuse patient.[facility] HospitalIn the event this information is protected by the Federal Confidentiality of Alcohol and Drug Abuse Patient Records regulations: The Federal rules restrict any use of the information to criminally investigate or prosecute any alcohol or drug abuse patient.[facility] HospitalIn the event this information is protected by the Federal Confidentiality of Alcohol and Drug Abuse Patient Records regulations: The Federal rules restrict any use of the information to criminally investigate or prosecute any alcohol or drug abuse patient.[facility] HospitalIn the event this information is protected by the Federal Confidentiality of Alcohol and Drug Abuse Patient Records regulations: The Federal rules restrict any use of the information to criminally investigate or prosecute any alcohol or drug abuse patient.[facility] HospitalIn the event this information is protected by the Federal Confidentiality of Alcohol and Drug Abuse Patient Records regulations: The Federal rules restrict any use of the information to criminally investigate or prosecute any alcohol or drug abuse patient.[facility] HospitalIn the event this information is protected by the Federal Confidentiality of Alcohol and Drug Abuse Patient Records regulations: The Federal rules restrict any use of the information to criminally investigate or prosecute any alcohol or drug abuse patient.[facility] HospitalIn the event this information is protected by the Federal Confidentiality of Alcohol and Drug Abuse Patient Records regulations: The Federal rules restrict any use of the information to criminally investigate or prosecute any alcohol or drug abuse patient.[facility] HospitalIn the event this information is protected by the Federal Confidentiality of Alcohol and Drug Abuse Patient Records regulations: The Federal rules restrict any use of the information to criminally investigate or prosecute any alcohol or drug abuse patient.[facility] HospitalIn the event this information is protected by the Federal Confidentiality of Alcohol and Drug Abuse Patient Records regulations: The Federal rules restrict any use of the information to criminally investigate or prosecute any alcohol or drug abuse patient.[facility] HospitalIn the event this information is protected by the Federal Confidentiality of Alcohol and Drug Abuse Patient Records regulations: The Federal rules restrict any use of the information to criminally investigate or prosecute any alcohol or drug abuse patient.[facility] HospitalIn the event this information is protected by the Federal Confidentiality of Alcohol and Drug Abuse Patient Records regulations: The Federal rules restrict any use of the information to criminally investigate or prosecute any alcohol or drug abuse patient.[facility] HospitalIn the event this information is protected by the Federal Confidentiality of Alcohol and Drug Abuse Patient Records regulations: The Federal rules restrict any use of the information to criminally investigate or prosecute any alcohol or drug abuse patient.[facility] HospitalIn the event this information is protected by the Federal Confidentiality of Alcohol and Drug Abuse Patient Records regulations: The Federal rules restrict any use of the information to criminally investigate or prosecute any alcohol or drug abuse patient.[facility] HospitalIn the event this information is protected by the Federal Confidentiality of Alcohol and Drug Abuse Patient Records regulations: The Federal rules restrict any use of the information to criminally investigate or prosecute any alcohol or drug abuse patient.[facility] HospitalIn the event this information is protected by the Federal Confidentiality of Alcohol and Drug Abuse Patient Records regulations: The Federal rules restrict any use of the information to criminally investigate or prosecute any alcohol or drug abuse patient.[facility] HospitalIn the event this information is protected by the Federal Confidentiality of Alcohol and Drug Abuse Patient Records regulations: The Federal rules restrict any use of the information to criminally investigate or prosecute any alcohol or drug abuse patient.[facility] HospitalIn the event this information is protected by the Federal Confidentiality of Alcohol and Drug Abuse Patient Records regulations: The Federal rules restrict any use of the information to criminally investigate or prosecute any alcohol or drug abuse patient.[facility] HospitalIn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 Medicine 08/28/14 Michele Gandhi MD [address] [place] [address] (Fax) Primary Staff Physician Cardiology 01/25/21 Chief Yeoman Relationship Specialty Start Date End Date Jm Childress MD [address] [place] [address] PCP - General Family Medicine 08/28/14 Michele Gandhi MD [address] [place] [address] (Fax) Primary Staff Physician Cardiology 01/25/21 Chief Yeoman Relationship Specialty Start Date End Date Jm Childress MD [address] [place] [address] PCP - General Family Medicine 08/28/14 Michele Gandhi MD [address] [place] [address] (Fax) Primary Staff Physician Cardiology 01/25/21 Chief Yeoman Relationship Specialty Start Date End Date Jm Childress MD [address] [place] [address] PCP - General Family Medicine 08/28/14 Michele Gandhi MD [address] [place] [address] (Fax) Primary Staff Physician Cardiology 01/25/21 Chief Yeoman Relationship Specialty Start Date End Date Jm Childress MD [address] [place] [address] PCP - General Family Medicine 08/28/14 Michele Gandhi MD [address] [place] [address] (Fax) Primary Staff Physician Cardiology 01/25/21 Chief Yeoman Relationship Specialty Start Date End Date Jm Childress MD [address] [place] [address] PCP - General Family Medicine 08/28/14 Michele Gandhi MD [address] [place] [address] Primary Staff Physician Cardiology 01/25/21 Chief Yeoman Relationship Specialty Start Date End Date Jm Childress MD [address] [place] [address] PCP - General Family Medicine 08/28/14 Michele Gandhi MD [address] [place] [address] Primary Staff Physician Cardiology 01/25/21 Chief Yeoman Relationship Specialty Start Date End Date Jm Childress MD [address] [place] [address] PCP - General Family Medicine 08/28/14 Michele Gandhi MD [address] [place] [address] Primary Staff Physician Cardiology 01/25/21 Chief Yeoman Relationship Specialty Start Date End Date Jm Childress MD [address] [place] [address] PCP - General Family Medicine 08/28/14 Michele Gandhi MD [address] [place] [address] Primary Staff Physician Cardiology 01/25/21 Chief Yeoman Relationship Specialty Start Date End Date Jm Childress MD [address] [place] [address] PCP - General Family Medicine 08/28/14 Michele Gandhi MD [address] [place] [address] Primary Staff Physician Cardiology 01/25/21 Chief Yeoman Relationship Specialty Start Date End Date Jm Childress MD [address] [place] [address] PCP - General Family Medicine 08/28/14 Michele Gandhi MD [address] [place] [address] Primary Staff Physician Cardiology 01/25/21 Team Status: Inactive Member Role Status Dates Dr. Jasbir Childress MD Primary Care Provider Active Dr. Destini Vega MD Emergency Provider Active Chief Yeoman Relationship Specialty Start Date End Date Jm Childress MD [address] [place] [address] PCP - General Family Medicine 08/28/14 Michele Gandhi MD [address] [place] [address] Primary Staff Physician Cardiology 01/25/21 Chief Yeoman Relationship Specialty Start Date End Date Jm Childress MD [address] [place] [address] PCP - General Family Medicine 08/28/14 Michele Gandhi MD [address] [place] [address] Primary Staff Physician Cardiology 01/25/21 Chief Yeoman Relationship Specialty Start Date End Date Jm Childress MD [address] [place] [address] PCP - General Family Medicine 08/28/14 Michele Gandhi MD [address] [place] [address] Primary Staff Physician Cardiology 01/25/21 Chief Yeoman Relationship Specialty Start Date End Date Jm Childress MD [address] [place] [address] PCP - General Family Medicine 08/28/14 Michele Gandhi MD [address], [address] [place] [address] Primary Staff Physician Cardiology 01/25/21 Chief Yeoman Relationship Specialty Start Date End Date Jm Childress MD [address] [place] [address] PCP - General Family Medicine 08/28/14 Michele Gandhi MD [address], [address] [place] [address] Primary Staff Physician Cardiology 01/25/21 Chief Yeoman Relationship Specialty Start Date End Date Jm Childress MD [address] [place] [address] PCP - General Family Medicine 08/28/14 Michele Gandhi MD [address], [address] [place] [address] Primary Staff Physician Cardiology 01/25/21 Chief Yeoman Relationship Specialty Start Date End Date Jm Childress MD [address] [place] [address] PCP - General Family Medicine 08/28/14 Michele Gandhi MD [address], [address] [place] [address] Primary Staff Physician Cardiology 01/25/21 Chief Yeoman Relationship Specialty Start Date End Date Jm Childress MD [address] [place] [address] PCP - General Family Medicine 08/28/14 Michele Gandhi MD [address], [address] [place] [address] Primary Staff Physician Cardiology 01/25/21 Chief Yeoman Relationship Specialty Start Date End Date Jm Childress MD [address] [place] [address] PCP - General Family Medicine 08/28/14 Michele Gandhi MD [address], [address] [place] [address] Primary Staff Physician Cardiology 01/25/21 Chief Yeoman Relationship Specialty Start Date End Date Jm Childress MD [address] [place] [address] PCP - General Family Medicine 08/28/14 Michele Gandhi MD [address], [address] [place] [address] Primary Staff Physician Cardiology 01/25/21 Chief Yeoman Relationship Specialty Start Date End Date Jm Childress MD [address] [place] [address] PCP - General Family Medicine 08/28/14 Michele Gandhi MD [address], [address] [place] [address] Primary Staff Physician Cardiology 01/25/21 Chief Yeoman Relationship Specialty Start Date End Date Jm Childress MD [address] [place] [address] PCP - General Family Medicine 08/28/14 Michele Gandhi MD [address], [address] [place] [address] Primary Staff Physician Cardiology 01/25/21 Chief Yeoman Relationship Specialty Start Date End Date Jm Childress MD [address] [place] [address] PCP - General Family Medicine 08/28/14 Michele Gandhi MD [address], [address] [place] [address] Primary Staff Physician Cardiology 01/25/21 Chief Yeoman Relationship Specialty Start Date End Date Jm Childress MD [address] [place] [address] PCP - General Family Medicine 08/28/14 Michele Gandhi MD [address], [address] [place] [address] Primary Staff Physician Cardiology 01/25/21 Chief Yeoman Relationship Specialty Start Date End Date Jm Childress MD [address] [place] [address] PCP - General Family Medicine 08/28/14 Michele Gandhi MD [address], [address] [place] [address] Primary Staff Physician Cardiology 01/25/21 Chief Yeoman Relationship Specialty Start Date End Date Jm Childress MD [address] [place] [address] PCP - General Family Medicine 08/28/14 Michele Gandhi MD [address], [address] [place] [address] Primary Staff Physician Cardiology 01/25/21 Chief Yeoman Relationship Specialty Start Date End Date Jm Childress MD [address] [place] [address] PCP - General Family Medicine 08/28/14 Michele Gandhi MD [address], [address] [place] [address] Primary Staff Physician Cardiology 01/25/21 Chief Yeoman Relationship Specialty Start Date End Date Jm Childress MD [address] [place] [address] PCP - General Family Medicine 08/28/14 Michele Gandhi MD [address], [address] [place] [address] Primary Staff Physician Cardiology 01/25/21 Chief Yeoman Relationship Specialty Start Date End Date Jm Childress MD [address] [place] [address] PCP - General Family Medicine 08/28/14 Michele Gandhi MD [address], [address] [place] [address] Primary Staff Physician Cardiology 01/25/21 Chief Yeoman Relationship Specialty Start Date End Date Jm Childress MD [address] [place] [address] PCP - General Family Medicine 08/28/14 Michele Gandhi MD [address], [address] [place] [address] Primary Staff Physician Cardiology 01/25/21 Chief Yeoman Relationship Specialty Start Date End Date Jm Childress MD [address] [place] [address] PCP - General Family Medicine 08/28/14 Michele Gandhi MD [address], [address] [place] [address] Primary Staff Physician Cardiology 01/25/21 Chief Yeoman Relationship Specialty Start Date End Date Jm Childress MD [address] [place] [address] PCP - General Family Medicine 08/28/14 Michele Gandhi MD [address] [place] [address] Primary Staff Physician Cardiology 01/25/21 Chief Yeoman Relationship Specialty Start Date End Date Jm Childress MD [address] [place] [address] PCP - General Family Medicine 08/28/14 Michele Gandhi MD [address], [address] [place] [address] Primary Staff Physician Cardiology 01/25/21 Chief Yeoman Relationship Specialty Start Date End Date Jm Childress MD [address] [place] [address] PCP - General Family Medicine 08/28/14 Michele Gandhi MD [address], [address] [place] [address] Primary Staff Physician Cardiology 01/25/21 Chief Yeoman Relationship Specialty Start Date End Date Jm Childress MD [address] [place] [address] PCP - General Family Medicine 08/28/14 Michele Gandhi MD [address], [address] [place] [address] Primary Staff Physician Cardiology 01/25/21 Chief Yeoman Relationship Specialty Start Date End Date Jm Childress MD [address] [place] [address] PCP - General Family Medicine 08/28/14 Michele Gandhi MD [address], [address] [place] [address] Primary Staff Physician Cardiology 01/25/21 Jud Hogue APRN.GEOGRAPHY HEAD [address] [place] [address] [place] [address] Complex Commercial Litigation Paralegal Internal Medicine 06/02/24 Chief Yeoman Relationship Specialty Start Date End Date Jm Childress MD [address] [place] [address] PCP - General Family Medicine 08/28/14 Michele Gandhi MD [address], [address] [place] [address] Primary Staff Physician Cardiology 01/25/21 Jud Hogue, SPECIALTY TRIMMER.GEOGRAPHY HEAD [address] [facility] [address] [place], [place] [address] Complex Commercial Litigation Paralegal Internal Medicine 06/02/24 Chief Yeoman Relationship Specialty Start Date End Date Jm Childress MD [address] [place] [address] PCP - General Family Medicine 08/28/14 Michele Gandhi MD [address], [address] [place] [address] Primary Staff Physician Cardiology 01/25/21 Jud Hogue, SPECIALTY TRIMMER.GEOGRAPHY HEAD [address] [facility] [address] [place] [address] Complex Commercial Litigation Paralegal Internal Medicine 06/02/24 Chief Yeoman Relationship Specialty Start Date End Date Jm Childress MD [address] [place], [place] [address] PCP - General Family Medicine 08/28/14 Michele Gandhi MD [address], [address] [place] [address] Primary Staff Physician Cardiology 01/25/21 Jud Hogue, SPECIALTY TRIMMER.GEOGRAPHY HEAD [address] [facility] [place] [address] [facility] Internal Medicine 06/02/24 Chief Yeoman Relationship Specialty Start Date End Date Jm Childress MD [address] [place] [address] PCP - General Family Medicine 08/28/14 Michele Gandhi MD [address], [address] [place] [address] Primary Staff Physician Cardiology 01/25/21 Jud Hogue APRN.GEOGRAPHY HEAD [address] [facility] [place] [address] Complex Commercial Litigation Paralegal Internal Medicine 06/02/24 Chief Yeoman Relationship Specialty Start Date End Date Jm Childress MD [address] [place] [address] PCP - General Family Medicine 08/28/14 Michele Gandhi MD [address], [address] [place] [address] Primary Staff Physician Cardiology 01/25/21 Jud Hogue APRN.GEOGRAPHY HEAD [address] [facility] [place] [address] Complex Commercial Litigation Paralegal Internal Medicine 06/02/24 Chief Yeoman Relationship Specialty Start Date End Date Jm Childress MD [address] [place] [address] PCP - General Family Medicine 08/28/14 Michele Gandhi MD [address], [address] [place] [address] Primary Staff Physician Cardiology 01/25/21 Jud Hogue APRN.GEOGRAPHY HEAD [address] [facility] [place] [address] Complex Commercial Litigation Paralegal Internal Medicine 06/02/24 Chief Yeoman Relationship Specialty Start Date End Date Jm Childress MD [address] [place] [address] PCP - General Family Medicine 08/28/14 Michele Gandhi MD [address], [address] [place] [address] Primary Staff Physician Cardiology 01/25/21 Jud Hogue, SPECIALTY TRIMMER.GEOGRAPHY HEAD [address] [facility] [place] [address] Complex Commercial Litigation Paralegal Internal Medicine 06/02/24 Chief Yeoman Relationship Specialty Start Date End Date Jm Childress MD [address] [place] [address] PCP - General Family Medicine 08/28/14 Michele Gandhi MD [address], [address] [place] [address] Primary Staff Physician Cardiology 01/25/21 Jud Hogue, SPECIALTY TRIMMER.GEOGRAPHY HEAD [address] [facility] [place] [address] Complex Commercial Litigation Paralegal Internal Medicine 06/02/24 Chief Yeoman Relationship Specialty Start Date End Date Jm Childress MD [address] [place] [address] PCP - General Family Medicine 08/28/14 Michele Gandhi MD [address], [address] [place] [address] Primary Staff Physician Cardiology 01/25/21 Jud Hogue, SPECIALTY TRIMMER.GEOGRAPHY HEAD [address] [facility] [place] [address] Complex Commercial Litigation Paralegal Internal Medicine 06/02/24 Chief Yeoman Relationship Specialty Start Date End Date Jm Childress MD [address] [place] [address] PCP - General Family Medicine 08/28/14 Michele Gandhi MD [address], [address] [place] [address] Primary Staff Physician Cardiology 01/25/21 Jud Hogue APRN.GEOGRAPHY HEAD [address] [facility] [place] [address] [facility] Internal Medicine 06/02/24 Chief Yeoman Relationship Specialty Start Date End Date Jm Childress MD [address] [place] [address] PCP - General Family Medicine 08/28/14 Michele Gandhi MD [address], [address] [place] [address] Primary Staff Physician Cardiology 01/25/21 Jud Hogue APRN.GEOGRAPHY HEAD [address] [facility] [place] [address] [facility] Internal Medicine 06/02/24 Chief Yeoman Relationship Specialty Start Date End Date Jm Childress MD [address] [place] [address] PCP - General Family Medicine 08/28/14 Michele Gandhi MD [address], [address] [place] [address] Primary Staff Physician Cardiology 01/25/21 Jud Hogue SPECIALTY TRIMMER.GEOGRAPHY HEAD [address] [facility] [place] [address] Complex Commercial Litigation Paralegal Internal Medicine 06/02/24 Chief Yeoman Relationship Specialty Start Date End Date Jm Childress MD [address] [place] [address] PCP - General Family Medicine 08/28/14 Michele Gandhi MD [address], [address] [place] [address] Primary Staff Physician Cardiology 01/25/21 Jud Hogue, XEN[place].GEOGRAPHY HEAD [address] [facility] [place] [address] Complex Commercial Litigation Paralegal Internal Medicine 06/02/24 Chief Yeoman Relationship Specialty Start Date End Date Jm Childress MD [address] [place] [address] PCP - General Family Medicine 08/28/14 Michele Gandhi MD [address], [address] [place] [address] Primary Staff Physician Cardiology 01/25/21 Jud Hogue, SPECIALTY TRIMMER.GEOGRAPHY HEAD [address] [facility] [place] [address] Complex Commercial Litigation Paralegal Internal Medicine 06/02/24 Chief Yeoman Relationship Specialty Start Date End Date Jm Childress MD [address] [place] [address] PCP - General Family Medicine 08/28/14 Michele Gandhi MD [address], [address] [place] [address] Primary Staff Physician Cardiology 01/25/21 Jud Hogue APRN.GEOGRAPHY HEAD [address] [facility] [place] [address] Complex Commercial Litigation Paralegal Internal Medicine 06/02/24 Chief Yeoman Relationship Specialty Start Date End Date Jm Childress MD [address] [place] [address] PCP - General Family Medicine 08/28/14 Michele Gandhi MD [address], [address] [place] [address] Primary Staff Physician Cardiology 01/25/21 Jud Hogue APRN.GEOGRAPHY HEAD [address] [facility] [place] [address] Complex Commercial Litigation Paralegal Internal Medicine 06/02/24 Chief Yeoman Relationship Specialty Start Date End Date Jm Childress MD [address] [place] [address] PCP - General Family Medicine 08/28/14 Michele Gandhi MD [address], [address] [place] [address] Primary Staff Physician Cardiology 01/25/21 Jud Hogue APRN.GEOGRAPHY HEAD [address] [facility] [place] [address] Complex Commercial Litigation Paralegal Internal Medicine 06/02/24 Team Status: Inactive Member Role Status Dates Dr. Jasbir Childress MD Primary Care Provider Active Start: November 27, 2024 End: November 27, 2024 Dr. Jasbir Childress MD Referring Provider Active Start: November 27, 2024 End: November 27, 2024 SHOBHA VemraC Attending Provider Active Start: November 27, 2024 End: November 27, 2024 Team Status: Active Member Role/Relationship Status Dates Dr. Jasbir Childress MD Family Provider Active Dr. Jasbir Childress MD Primary Care Provider Active Team Status: Inactive Member Role/Relationship Status Dates Dr. Jasbir Childress MD Primary Care Provider Active Start: November 27, 2024 End: November 27, 2024 Dr. Jasbir Childress MD Referring Provider Active Start: November 27, 2024 End: November 27, 2024 Destini Bain NP-C Attending Provider Active Start: November 27, 2024 End: November 27, 2024 Team Status: Inactive Member Role/Relationship Status Dates Dr. Jasbir Childress MD Primary Care Provider Active Start: December 25, 2024 End: December 25, 2024 Dr. Jasbir Childress MD Referring Provider Active Start: December 25, 2024 End: December 25, 2024 Destini Bain NP-C Attending Provider Active Start: December 25, 2024 End: December 25, 2024 Team Status: Active Member Role/Relationship Status Dates Dr. Jasbir Childress MD Primary Care Provider Active Team Status: Inactive Member Role/Relationship Status Dates Dr. Jasbir Childress MD Primary Care Provider Active Start: January 01, 2025 End: January 01, 2025 Destini Bain NP-C Attending Provider Active Start: January 01, 2025 End: January 01, 2025 Destini Bain NP-C Referring Provider Active Start: January 01, 2025 End: January 01, 2025 Care Team (unrecognized sect ion and content) Care Team Personnel Name: JM CHILDRESS MD Member Role: Primary Care Physician Address: Address: [address] [place] [address] [place] [address]- Name: MOUSTAPHA UGNN MD Position: ED Physician Member Role: ED Physician Address: Address: [facility] [address] [place] [address]- Care Team Related Persons Name: FLORENTIN PIZANO Address: Home [address] [place] [address] Care Team Personnel Name: FIOR HERNANDEZ, JM MORA Member Role: Primary Care Physician Address: Address: [address] [place] [address] [place] [address]- Name: MATILDE Comer Position: AO RN Member Role: ED RN Name: MD KALEB, JERRELL HERNANDEZ Position: AH ED Physician Member Role: ED Physician Address: Address: [address] [place] [address]- Care Team Related Persons Name: SUMA TELLO Name: FLORENTIN PIZANO Address: Home [address] [place] [address] Goals (unrecognized section and content) Goals may be documented in a n alternate section FOR RECORDS PERTAINING TO PATIENTS WHO ARE OR HAVE BEEN ENROLLED IN A CHEMICAL DEPENDENCY/SUBSTANCEABUSE PROGRAM, SOME INFORMATION MAY BE OMITTED. This clinical summary was aggregated from multiple sources. Caution should be exercised in using it in the provision of clinical care. This summary normalizes information from multiple sources, and as a consequence, information in this document may materially change the coding, format and clinical context of patient data. In addition, data may be omitted in some cases. CLINICAL DECISIONS SHOULD BE BASED ON THE PRIMARY CLINICAL RECORDS. [facility] [employer] [facility]. provides no warranty or guarantee of the accuracy or completeness of information in this document.
--- NOTE | 2025-01-15 07:25 | US_ITS ---
PROCEDURE: ELASTOGRAPHY PARENCHYMA/ORGAN REASON FOR EXAM: FATTY LIVER COMPARISON: Abdominal ultrasound 01/01/2025. CT abdomen pelvis 04/11/2023. TECHNIQUE: Right upper quadrant abdominal ultrasound. [employer] ElastQ Imaging shear wave elastography for non-invasive assessment of liver tissue stiffness. [employer] EPIQ Elite. FINDINGS: Elastography: EQI Med: 25.4 kPa EQI Med Wilber: 2.9 m/s IQR/Med: <30 %* US/Elastography Parenchyma/Organ IMPRESSION: SEVERE HEPATIC FIBROSIS / CIRRHOSIS. Metavir score of F4. Reference Values: SRU <1.37 m/s (5.7kPa): No to mild fibrosis 1.37 m/s - 2.2 m/s: Moderate to severe fibrosis >2.2 m/s (15kPa): Significant fibrosis / cirrhosis METAVIR Score F2 or higher: 1.34 m/s (5.7kPa) F3 or higher: 1.55 m/s (7.3kPa) F4: 1.80 m/s (10kPa) * If the IQR/Med is >30%, the variance in the measurements is a large and the a ccuracy of the measurement may be in question. Reading Location: [id number]
[2025-01-15 08:09] LABS: Hematocrit 41.6 % (37-47); Hemoglobin 13.6 g/dL (12.0-15.0); Immature Granulocytes Count 0.020 X10^3/uL (0.0-0.0); Mean Corp Hgb Conc 32.7 g/dL (32-36); Mean Corpuscular Volume 91.6 fL (81-99); Mean Platelet Vol. 11.2 fl (6.2-12.0); NRBC Flagged by Analyzer 0 % (0-5); Platelet Count 206 K/mm3 (150-450); RBC Distribution Width CV 11.9 % (11.6-14.6); RBC Distribution Width SD 40.0 fl (35.1-43.9); Red Blood Count 4.54 M/mm3 (4.2-5.4); White Blood Count 5.8 K/mm3 (4.4-11.0)
[2025-01-15 09:18] LABS: AST(SGOT) 18 U/L (<=31); Alanine Aminotransfer ALT/SGPT 26 U/L (<=34); Albumin, Serum 4.1 g/dL (3.5-5.0); Alkaline Phosphatase 54 U/L (35-104); Anion Gap 10 (5-15); BUN 10 mg/dL (4-19); BUN/Creat Ratio 12.9 RATIO (10-20); Calcium,Total 9.0 mg/dL (7.6-11.0); Carbon Dioxide 22.7 mmol/L (21.0-32.0); Chloride 107 mmol/L (98-108); Globulin 2.3 g/dL (2.2-4.2); Glucose 93 mg/dL (70-99); Hepatitis B Surface Antigen Nonreactive (Nonreactive); Hepatitis C Antibody Nonreactive (Nonreactive); Potassium 4.4 mmol/L (3.3-5.1)
== END | disposition home or self-care (01) ==
LOC: US 07:15
PROVIDERS: PCP Family Medicine; Referring Provider Nurse Practitioner Acute Care; Visit Provider Nurse Practitioner Acute Care
DX: K76.0 Fatty (change of) liver, not elsewhere classified (principal); R10.12 Left upper quadrant pain; R14.0 Abdominal distension (gaseous); R11.0 Nausea; K59.01 Slow transit constipation
CPT/HCPCS: 36415; 76981; 80053; 84443; 85025; 86704; 86706; 86708; 86803; 87340

== ENCOUNTER 2025-02-04 13:58 | Day surgery (SDC) | payer MEDICAID, SELFPAY ==
--- NOTE | 2025-01-30 16:57 | PAT.ANE_ITS ---
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 When Was Last Pacemaker Check QUESTION #4 FULL TEXT: You/Your Family Experience fever (hyperthermia) with Anesthesia Last Oral Intake Last Oral intake: Last Oral Intake NPO since Meds taken in AM with sips of water? Meds patient instructed to take am of surgery PONV PONV - valet service attendant: PONV - valet service attendant Female Yes 01/30/25 15:21 HX of Motion Sickness Yes 01/30/25 15:21 HX of N/V After Surgery No 01/30/25 15:21 Non-Smoker Yes 01/30/25 15:21 Duration of Surgery greater No 01/30/25 15:21 than 60 minutes Number of Risk Factors 3 01/30/25 15:21 PONV Score Moderate Risk 01/30/25 15:21 Height & Weight Height & Weight: Anesthesia: Height & Weight Height 5 ft 4 in 12/25/24 10:22 Respiratory Assessment Respiratory Assessment - valet service attendant: Respiratory Tract Infection Hx - valet service attendant Hx Respiratory Tract Infection No 01/30/25 15:21 STOP Sleep Apnea STOP Sleep Apnea - valet service attendant: STOP Sleep Apnea - valet service attendant Hx Hypertension No 01/30/25 15:21 Hx Sleep Apnea No 01/30/25 15:21 CPAP BIPAP Do you snore loudly (louder No 01/30/25 15:21 than talking or can be heard Do you often feel tired/ No 01/30/25 15:21 fatigued/ sleepy during daytime? Has anyone observed you stop No 01/30/25 15:21 breathing during sleep? STOP Results Negative 01/30/25 15:21 QUESTION #5 FULL TEXT : Do you snore loudly (louder than talking or can be heard through closed doors)? 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 Specify any problems Hx of Preganancy in last 3 No 01/30/25 15:21 Months Nurse Filling Out Transfusion JZOLLINGE 01/30/25 15:21 & Questions: Date: 01/30/25 01/30/25 15:21 Time: 15:22 01/30/25 15:21 Patient unable to answer at this time (ie. confused, unrespo /Reproduction History /Reproductive History - valet service attendant: /Reproductive Hx- valet service attendant Hx Now No 01/30/25 15:21 Gestational Age (in weeks): EDC: Hx Hx Para Hx Section SAB No 01/30/25 15:21 PFSH Medical History Varicose veins of left leg with edema Hypotension HPV (human papilloma virus) infection Nicotine dependence History of TIA (transient ischemic attack) Depression Endometriosis Herpes Carcinoma in situ of cervix uteri IBS (irritable bowel syndrome) GERD (gastroesophageal reflux disease) Patent foramen ovale Migraines History of tobacco use Home Medications ?Medication ?Instructions ?Recorded ?Last Taken ?Type pantoprazole 40 mg tablet,delayed 40 mg PO QDAY Unknown History release tenapanor 50 mg tablet (Ibsrela) 50 mg PO BID #60 tabs 01/28/25 Unknown Rx Allergy/AdvReac Type Severity Reaction Status Date / Time Bleach (Sodium Hypochlorite) Allergy Mild Rash Verified 01/30/25 15:16 codeine AdvReac Severe migraine Verified 01/30/25 15:16 hydrocodone AdvReac migraine Verified 01/30/25 15:16 paroxetine (From Paxil) AdvReac migraine Verified 01/30/25 15:16 Family History Grandfather Heart disease Diabetes CVA (cerebral vascular accident) Myocardial infarction Grandmother Heart disease Diabetes Mother SLE (systemic lupus erythematosus) Hypertension Hyperlipidemia COPD (chronic obstructive pulmonary disease) CVA (cerebral vascular accident) Heart failure Father CAD (coronary artery disease) Hyperlipidemia Hypertension Diabetes Sister Addiction Developmental delay Grandfather Cancer Myocardial infarction Diabetes Surgical History History of laparoscopy History of esophagogastroduodenoscopy (EGD) H/O LEEP History of colonoscopy History of History of tubal ligation Social History Smoking Status: Former smoker alcohol intake: never substance use type: does not use Audit: Pertinent Findings Pertinent Findings EKG Perinent findings: NSR Stress test pertinent findings: Normal strees echo Echo (EF%) pertinent findings: Normal strees echo 56% Recommendation Anesthesia Recommendation Anesthesia recommendation: OPTIMIZED for anesthesia
[2025-02-04] VITALS (10 sets, daily range): BP systolic 80–117; BP diastolic 45–85; PULSE 70–77; RESP 14–16; TEMP 36.1–36.8; O2SAT 97–100; BMI 27.2
[2025-02-04] MEDS: Lactated Ringers 1,000 ML 15 ML IV (14:22)
--- NOTE | 2025-02-04 14:32 | PCM.HP.STD ---
HPI - General General Date of Admission: 02/04/25 Date of Service: 02/04/25 Chief Complaint: Abdominal pain and chronic constipation HPI Narrative CRYSTAL MCCRAY, is a 39 F who presents Chief Complaint: constipation Details: OV 12/25/2024 The patient is a 39-year-old female with a history of chronic constipation and abdominal pain presenting with exacerbation of symptoms. The left-sided abdominal pain, persistent for three years, is sharp and radiates to the back and shoulder, with no relief from bowel movements or dietary changes or the addition of Amitiza 24mcg BID. She does report a decrease in floating/oily stools with the addition of Creon. The constipation has worsened, with no bowel movements for two weeks despite medication, and is accompanied by pale stools and nausea. The patient has a history of using multiple laxatives with limited success and adverse effects, including abdominal cramping and bleeding. Patient Instructions: - Stop taking Amitiza and start Ibsrela, one tablet twice daily with meals. - Continue taking Creon as prescribed. - Start pantoprazole 40mg once daily on an empty stomach. - Schedule an abdominal ultrasound to check the gallbladder and spleen. - Plan for a repeat colonoscopy and EGD due to symptom changes. ABD US: 01/01/2025 liver steatosis ELASTOGRAPHY: 01/15/2025 kPa 25.4, 2.9 m/s, (IQR/Med: <30 %*) SEVERE HEPATIC FIBROSIS / CIRRHOSIS. Metavir score of F4. HAV Total Ab: 01/15/2025 negative HBVsA01/15/2025 negative HBVsAb: 01/15/2025 negative HBV Core Ab Total: 01/15/2025 negative HCV Ab: 01/15/2025 negative TSH: 01/15/2025 WNL CBC: 01/15/2025 WNL CMP: 01/15/2025 WNL ELF: 8.34 FIB-4: 0.7 advanced fibrosis is unlikely Agile4: 0.39 inderterminate - seen in office today with her two teenage daughters - weight is stable, up 12lbs in the past 8 months - she reports having BM, but not a full BM - stools are pencil thin - Colon & EGD are scheduled for next Monday - she is taking Ibsrela BID, she is getting from [facility] - Ibsrela is better than Amitiza - she is continuing to experience LUQ pain - she is taking pantoprazole 40mg once daily - she is not taking Creon - c/o nausea, denies any emesis - denies any alcohol use in the past 3 years, occasional wine cooler - denies any family h/o liver disease - denies any autoimmune conditions PFSH Medical History Former smoker Hypotension 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 Nicotine dependence History of TIA (transient ischemic attack) Depression Endometriosis Herpes Carcinoma in situ of cervix uteri IBS (irritable bowel syndrome) GERD (gastroesophageal reflux disease) Patent foramen ovale Migraines History of tobacco use Home Medications ?Medication ?Instructions ?Recorded ?Last Taken ?Type pantoprazole 40 mg tablet,delayed 40 mg PO QDAY 01/28/25 Unknown History release tenapanor 50 mg tablet (Ibsrela) 50 mg PO BID #60 tabs 01/28/25 Unknown Rx Allergy/AdvReac Type Severity Reaction Status Date / Time Bleach (Sodium Hypochlorite) Allergy Mild Rash Verified 01/30/25 15:16 codeine AdvReac Severe migraine Verified 01/30/25 15:16 hydrocodone AdvReac migraine Verified 01/30/25 15:16 paroxetine (From Paxil) AdvReac migraine Verified 01/30/25 15:16 Family History Grandfather Heart disease Diabetes CVA (cerebral vascular accident) Myocardial infarction Grandmother Heart disease Diabetes Mother SLE (systemic lupus erythematosus) Hypertension Hyperlipidemia COPD (chronic obstructive pulmonary disease) CVA (cerebral vascular accident) Heart failure Father CAD (coronary artery disease) Hyperlipidemia Hypertension Diabetes Sister Addiction Developmental delay Grandfather Cancer Myocardial infarction Diabetes Surgical History History of laparoscopy History of esophagogastroduodenoscopy (EGD) H/O LEEP History of colonoscopy History of History of tubal ligation Social History Smoking Status: Former smoker alcohol intake: never substance use type: does not use ROS Constitutional Constitutional: Denies fatigue, fever(s), poor appetite, weight gain or weight loss Gastrointestinal Gastrointestinal: Denies belching, bloating, change in bowel habits, change in stool character, chewing difficulty, coffee ground emesis, constipation, cramping, diarrhea, dyspepsia, dysphagia, early satiety, excessive flatus, fecal incontinence, heartburn, hematemesis, hematochezia, hemorrhoids, loose stools, melena, nausea, odynophagia, rectal bleeding, tenesmus, vomiting or weight changes Vital Signs Vital Signs Vital Signs: 02/04/25 14:13 02/04/25 14:13 Temperature 98.2 F Temperature Source Temporal Pulse Rate 77 Respiratory Rate 16 Respiratory Pattern Normal Blood Pressure 117/85 H Blood Pressure Mean 95 Blood Pressure Source Monitor Blood Pressure Position Sitting Blood Pressure Location Right Arm Pulse Ox 100 Oxygen Delivery Method Room Air Weight Weight: 158 lb 11.725 oz Body Mass Index (BMI) 27.2 Physical Exam Const alert, oriented x3, no apparent distress and healthy appearing General Appearance: cooperative GI normal to inspection, nondistended, normoactive bowel sounds, soft to palpation, non-tender and non-distended Percussion: normal to percussion Rectal Exam: deferred Assessment & Plan Assessment/Plan (1) Chest pain due to gastrointestinal reflux disease: (2) LUQ pain: (3) Bloating: (4) Nausea: (5) Constipation: QUALIFIERS: Constipation type: slow transit constipation Qualified Code(s): K59.01 - Slow transit constipation PLAN: Assessment and Plan Assessment and Plan (1) Bloating: Status: Acute (2) LUQ pain: Status: Acute (3) Fatty liver: Status: Acute Orders: Orders CBC W/Diff, Automated 03/26/25 K76.0 - Fatty (change of) liver, not elsewhere classified, R10.12 - Left upper quadrant pain, R14.0 - Abdominal distension (gaseous) Comprehensive Metabolic Profil 03/26/25 K76.0 - Fatty (change of) liver, not elsewhere classified, R10.12 - Left upper quadrant pain, R14.0 - Abdominal distension (gaseous) Prothrombin Time w/INR 03/26/25 K76.0 - Fatty (change of) liver, not elsewhere classified, R10.12 - Left upper quadrant pain, R14.0 - Abdominal distension (gaseous) [facility] Misc. 03/26/25 K76.0 - Fatty (change of) liver, not elsewhere classified, R10.12 - Left upper quadrant pain, R14.0 - Abdominal distension (gaseous) Medications: New tenapanor (Ibsrela) must administer immediately before first meal of day/breakfast and dinner 50 mg PO BID 60 tabs 5RF Plan 39-year-old female with a history of chronic constipation and suspected non-alcoholic fatty liver disease (NAFLD) presenting with abdominal pain. The patient's symptoms, liver elastography results, and mild thrombocytopenia are concerning for possible advanced hepatic fibrosis or early cirrhosis. Ultrasonography has previously shown fatty infiltration of the liver without bile duct abnormalities. Routine blood panels are within normal limits, although the patient has a low-normal platelet count. Given the absence of significant alcohol use and family history, non-alcoholic steatohepatitis (RUSSO) is likely. Further workup is warranted to evaluate potential portal hypertension. Patient Instructions: - Continue pantoprazole 40 mg daily for management of abdominal symptoms. - Keep taking Ibsrela twice daily to manage constipation. - Attend scheduled colonoscopy and EGD next week. - Obtain vaccination for Hepatitis A and B. - Keep a detailed food and drink journal over the next few weeks. - Consult with a dealer relationship manager and work on gradual weight loss. Referral to [facility]. - Schedule a consult with Dr. Lyons with repeat blood work in March. - Avoid alcohol and smoking. - Contact healthcare provider if symptoms worsen or for any new symptoms.
--- NOTE | 2025-02-04 14:36 | PRE.ANES_ITS ---
ASA Classification* ASA Classification ASA Classification: 2 Assessment & Plan Anesthesia* Anesthesia Assessment Anesthesia Assessment: Discussed sedation and/or anesthesia options, risks, benefits, and alternatives with patient/parents/legal guardian/POA. Questions invited. The patient/parents/legal guardian/POA seems to understand and agrees to proceed with anesthesia plan. Reviewed the physical assessment, medical history, allergy history and patient home medications list prior to surgery/procedure/anesthetic and documented any changes. Performed airway and anesthesia risk assessments. Anesthesia Type Anesthesia Type: MAC History Source History Obtained from:: Patient and Chart Anesthesia Focused Assessment* Temperature: 98.2 F Pulse Rate: 77 Blood Pressure: 117/85 Respiratory Rate: 16 Pulse Ox: 100 Oxygen Delivery Method: Room Air Airway Assessment Mouth opens: >3 cm Mallampati Score: I Teeth Condition: Missing (Patient is missing a couple molars right lower jaw.) Neck Range of motion (ROM): Full ROM Labs Anesthesia Preop lab: CBC WBC 5.8 K/mm3 (4.4-11.0) 01/15/25 07:17 01/15/25 RBC 4.54 M/mm3 (4.2-5.4) 01/15/25 07:17 01/15/25 Hgb 13.6 g/dL (12.0-15.0) 01/15/25 07:17 01/15/25 Hct 41.6 % (37-47) 01/15/25 07:17 01/15/25 Plt Count 206 K/mm3 (150-450) 01/15/25 07:17 01/15/25 CHEMISTRY Potassium 4.4 mmol/L (3.3-5.1) 01/15/25 07:17 01/15/25 Sodium 139 mmol/L (133-145) 01/15/25 07:01/15/25 BUN 10 mg/dL (4-19) 01/15/25 07:01/15/25 Creatinine 0.77 mg/dL (0.70-1.20) 01/15/25 07:17 01/15/25 Glucose 93 mg/dL (70-99) 01/15/25 07:17 01/15/25 TSH 1.070 uIU/mL (0.300-4.200) 01/15/25 07:17 12/25 09/17 COAG Pre-Assessment Diagnosis/Proposed Procedure Planned Operative Procedure(s): Colonoscopy,EGD Anesthesia History 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 When Was Last Pacemaker Check QUESTION #4 FULL TEXT: You/Your Family Experience fever (hyperthermia) with Anesthesia Last Oral Intake Last Oral intake: Last Oral Intake NPO since 18:00 02/04/25 14:13 Meds taken in AM with sips of No 02/04/25 14:13 water? Meds patient instructed to take am of surgery Any additional information?: Yes NPO since: 03:00 (Patient finished up bowel prep at 3 AM.) Meds taken in AM with sips of water?: Yes PONV PONV - cable stretcher and tester: PONV - cable stretcher and tester Female Yes 01/30/25 15:21 HX of Motion Sickness Yes 01/30/25 15:21 HX of N/V After Surgery No 01/30/25 15:21 Non-Smoker Yes 01/30/25 15:21 Duration of Surgery greater No 01/30/25 15:21 than 60 minutes Number of Risk Factors 3 01/30/25 15:21 PONV Score Moderate Risk 01/30/25 15:21 Height & Weight Height & Weight: Anesthesia: Height & Weight Height 5 ft 4 in 02/04/25 14:13 Weight: 72 kg 02/04/25 14:13 Body Mass Index (BMI) 27.2 02/04/25 14:13 Respiratory Assessment Respiratory Assessment - cable stretcher and tester: Respiratory Tract Infection Hx - cable stretcher and tester Hx Respiratory Tract Infection No 01/30/25 15:21 STOP Sleep Apnea STOP Sleep Apnea - cable stretcher and tester: STOP Sleep Apnea - cable stretcher and tester Hx Hypertension No 01/30/25 15:21 Hx Sleep Apnea No 01/30/25 15:21 CPAP BIPAP Do you snore loudly (louder No 01/30/25 15:21 than talking or can be heard Do you often feel tired/ No 01/30/25 15:21 fatigued/ sleepy during daytime? Has anyone observed you stop No 01/30/25 15:21 breathing during sleep? STOP Results Negative 01/30/25 15:21 QUESTION #5 FULL TEXT : Do you snore loudly (louder than talking or can be h eard through closed doors)? 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 Specify any problems Hx of Preganancy in last 3 No 01/30/25 15:21 Months Nurse Filling Out Transfusion [email or web address] 01/30/25 15:21 & Questions: Date: 01/30/25 01/30/25 15:21 Time: 15:22 01/30/25 15:21 Patient unable to answer at this time (ie. confused, unrespo /Reproduction History /Reproductive History - cable stretcher and tester: /Reproductive Hx- cable stretcher and tester Hx Now No 01/30/25 15:21 Gestational Age (in weeks): EDC: Hx Hx Para Hx Section SAB No 01/30/25 15:21 Active Medications Active Medications: Current Medications Generic Name Dose Route Start Last Admin Trade Name Freq PRN Reason Stop Dose Admin Lactated Ringer's 1,000 mls @ 15 mls/hr 02/04/25 14:15 02/04/25 14:22 IV 15 mls/hr .Q48H LORIN Administration PFSH Medical History Former smoker Hypotension 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 Nicotine dependence History of TIA (transient ischemic attack) Depression Endometriosis Herpes Carcinoma in situ of cervix uteri IBS (irritable bowel syndrome) GERD (gastroesophageal reflux disease) Patent foramen ovale Migraines History of tobacco use Home Medications ?Medication ?Instructions ?Recorded ?Last Taken ?Type pantoprazole 40 mg tablet,delayed 40 mg PO QDAY Unknown History release tenapanor 50 mg tablet (Ibsrela) 50 mg PO BID #60 tabs 01/28/25 Unknown Rx Allergy/AdvReac Type Severity Reaction Status Date / Time Bleach (Sodium Hypochlorite) Allergy Mild Rash Verified 01/30/25 15:16 codeine AdvReac Severe migraine Verified 01/30/25 15:16 hydrocodone AdvReac migraine Verified 01/30/25 15:16 paroxetine (From Paxil) AdvReac migraine Verified 01/30/25 15:16 Family History Grandfather Heart disease Diabetes CVA (cerebral vascular accident) Myocardial infarction Grandmother Heart disease Diabetes Mother SLE (systemic lupus erythematosus) Hypertension Hyperlipidemia COPD (chronic obstructive pulmonary disease) CVA (cerebral vascular accident) Heart failure Father CAD (coronary artery disease) Hyperlipidemia Hypertension Diabetes Sister Addiction Developmental delay Grandfather Cancer Myocardial infarction Diabetes Surgical History History of laparoscopy History of esophagogastroduodenoscopy (EGD) H/O LEEP History of colonoscopy History of History of tubal ligation Social History Smoking Status: Former smoker alcohol intake: never substance use type: does not use Review of Systems (Anesthesia) ROS Narrative System reviewed and no additional complaints, except as documented.
--- NOTE | 2025-02-04 15:13 | PCM.POST.ANE ---
Anesthesia: Postop Eval I Current Vital Signs Temperature: 97 F Pulse Rate: 73 Blood Pressure: 86/45 Respiratory Rate: 14 Pulse Ox: 98 Oxygen Delivery Method: Room Air Assessment Airway patent: Yes Spontaneous unlabored respirations: Yes Mental status: Awake and Calm nausea: No Vomiting: No Anesthesia Complication: No Fluid Hydration Crystalloid volume administer (ml): 500 Total IV fluid infused: 500 Progress Note Anesthesia document: Postop Eval 1 completed: Yes
--- NOTE | 2025-02-04 15:15 | EGD_PTH ---
PATIENT: CRYSTAL MCCRAY LOC: EN U#:[id number] AGE/SX: 39/F ROOM: RE02/04/[address]: Dr. Albino Contreras DO : 1985 BED: DIS: 02/04/2025 SPEC #: [id number] RECD: 02/05/25 07:34 STATUS: MOHIT REBimal #: [id number] JENNIFER: 02/04/25 15:[address]: Albino Contreras DEPT: SURGICAL PATHOLOGY RECD BY: Claudy Loyola ENTERED: 02/05/25 10:32 SP TYPE: EGD BIOPSY DYAN DR: Dr. Jasbir Wilson MD Tissues: A - Gastric mucous membrane Procedures: Immunohistochemical Stains Surgery Specimen Level IV HEADER OPERATION: Colonoscopy, EGD, biopsy PRE-OP DIAGNOSIS: Bloating, left upper quadrant pain, fatty liver TISSUE SUBMITTED: A- Gastric ulcer body biopsy MICROSCOPIC DIAGNOSIS A. Gastric ulcer, biopsy: - Oxyntic gastric mucosa with necrosis and acute inflammation. - IHC negative for H. pylori organisms. MICROSCOPIC DESCRIPTION Slides are reviewed. All matched controls reacted appropriately. These tests were developed and their performance characteristics determined by [facility]. They may not have been cleared or approved by the U.S. Food and Drug Administration. The FDA has determined that such clearance or approval is not necessary.? The above immunohistochemical?markers are reviewed by the Pathologist. GROSS DESCRIPTION A. Received in formalin labeled with the patient's name and date of . Designated as gastric body ulcer BX is a 0.7 x 0.5 x 0.2 centimeter aggregate of rivera and cauterized tissue fragments. Entirely submitted in 1 cassette. HI 02/05/2025 CPT:76404,39096
--- NOTE | 2025-02-04 15:23 | OP.EGD_ITS ---
Patient Name: Deandra Han Procedure Date: 02/04/2025 2:35 PM Date of : 1985 Age: 39 Procedure: Upper GI endoscopy Indications: Epigastric abdominal pain Providers: Albino Contreras DO Referring MD: Jasbir Wilson Medicines: Monitored Anesthesia Care Patient Profile: Patient has symptoms of acute epigastric abdominal pain. Complications: No immediate complications. Procedure: Pre-Anesthesia Assessment: - Prior to the procedure, a History and Physical was performed, and patient medications and allergies were reviewed. The patient is competent. The risks and benefits of the procedure and the sedation options and risks were discussed with the patient. All questions were answered and informed consent was obtained. Patient identification and proposed procedure were verified by the physician in the pre-procedure area. Mental Status Examination: alert and oriented. Airway Examination: normal oropharyngeal airway and neck mobility. Respiratory Examination: clear to auscultation. CV Examination: normal. ASA Grade Assessment: II - A patient with mild systemic disease. After reviewing the risks and benefits, the patient was deemed in satisfactory condition to undergo the procedure. The anesthesia plan was to use monitored anesthesia care (MAC). Immediately prior to administration of medications, the patient was re-assessed for adequacy to receive sedatives. The heart rate, respiratory rate, oxygen saturations, blood pressure, adequacy of pulmonary ventilation, and response to care were monitored throughout the procedure. The physical status of the patient was re-assessed after the procedure. After obtaining informed consent, the endoscope was passed under direct vision. Throughout the procedure, the patient's blood pressure, pulse, and oxygen saturations were monitored continuously. The colonoscope was introduced through the mouth, and advanced to the fourth part of the duodenum. Small bowel enteroscopy was deemed necessary. The upper GI endoscopy was accomplished without difficulty. The patient tolerated the procedure well. Scope In: 2:53:02 PM Scope Out: 2:55:24 PM Total Procedure Duration Time 0 hours 2 minutes 22 seconds Findings: The examined esophagus was normal. Three non-bleeding cratered gastric ulcers with no stigmata of bleeding were found in the gastric body. The largest lesion was 5 mm in largest dimension. Biopsies were taken with a cold forceps for histology. Verification of patient identification for the specimen was done. Estimated blood loss was minimal. Biopsies were taken with a cold forceps for Helicobacter pylori testing. Verification of patient identification for the specimen was done. Estimated blood loss was minimal. No gross lesions were noted in the entire examined duodenum. Impression: - Normal esophagus. - Non-bleeding gastric ulcers with no stigmata of bleeding. Biopsied. - No gross lesions in the entire examined duodenum. Recommendation: - Discharge patient to home. - Resume previous diet. - Continue present medications. - Await pathology results. - Use Protonix (pantoprazole) 40 mg PO BID for 3 months. Procedure Code(s): --- Professional --- 78642, Small intestinal endoscopy, enteroscopy beyond second portion of duodenum, not including ileum; with biopsy, single or multiple CPT copyright 2021 [employer]. All rights reserved. The codes documented in this report are preliminary and upon certified financial planner review may be revised to meet current compliance requirements. Albino Contreras DO 02/04/2025 3:23:24 PM This report has been signed electronically. Number of Addenda: 0 Note Initiated On: 02/04/2025 2:35 PM
--- NOTE | 2025-02-04 15:24 | OP.PROVAT_ITS ---
02/04/2025 Jasbir Wilson Re : Upper GI endoscopy procedure for Deandar Han Dear Steve This procedure was performed on Tuesday, February 04, 2025. My impressions and recommendations are as follows: Impressions : - Normal esophagus. - Non-bleeding gastric ulcers with no stigmata of bleeding. Biopsied. - No gross lesions in the entire examined duodenum. Recommendations : - Discharge patient to home. - Resume previous diet. - Continue present medications. - Await pathology results. - Use Protonix (pantoprazole) 40 mg PO BID for 3 months. My findings are described in the full procedure note, which is enclosed. If I can be of further assistance, please feel free to contact me at . Sincerely, Albino Contreras, 02/04/2025 3:23:24 PM This report has been signed electronically.
--- NOTE | 2025-02-04 15:25 | OP.COLON_ITS ---
Patient Name: Deandra Han Procedure Date: 02/04/2025 2:55 PM Date of : 1985 Age: 39 Procedure: Colonoscopy Indications: Abdominal pain in the left upper quadrant Providers: Albino Contreras DO Referring MD: Jasbir Wilson Medicines: Monitored Anesthesia Care Patient Profile: Patient has symptoms of acute epigastric abdominal pain. This is a 39 year old female. Refer to note in patient chart for documentation of history and physical. Last Colonoscopy: 5 years ago. Complications: No immediate complications. Procedure: Pre-Anesthesia Assessment: - Prior to the procedure, a History and Physical was performed, and patient medications and allergies were reviewed. The patient is competent. The risks and benefits of the procedure and the sedation options and risks were discussed with the patient. All questions were answered and informed consent was obtained. Patient identification and proposed procedure were verified by the physician in the pre-procedure area. Mental Status Examination: alert and oriented. Airway Examination: normal oropharyngeal airway and neck mobility. Respiratory Examination: clear to auscultation. CV Examination: normal. ASA Grade Assessment: II - A patient with mild systemic disease. After reviewing the risks and benefits, the patient was deemed in satisfactory condition to undergo the procedure. The anesthesia plan was to use monitored anesthesia care (MAC). Immediately prior to administration of medications, the patient was re-assessed for adequacy to receive sedatives. The heart rate, respiratory rate, oxygen saturations, blood pressure, adequacy of pulmonary ventilation, and response to care were monitored throughout the procedure. The physical status of the patient was re-assessed after the procedure. After I obtained informed consent, the scope was passed under direct vision. Throughout the procedure, the patient's blood pressure, pulse, and oxygen saturations were monitored continuously. The colonoscope was introduced through the anus and advanced to the terminal ileum. The colonoscopy was performed without difficulty. The patient tolerated the procedure well. The quality of the bowel preparation was adequate. The terminal ileum, ileocecal valve, appendiceal orifice, and rectum were photographed. Scope In: 2:57:12 PM Scope Withdrawal Time 0 hours 6 minutes 19 seconds Scope Out: 3:06:53 PM Total Procedure Duration Time 0 hours 9 minutes 41 seconds Findings: The perianal and digital rectal examinations were normal. The colon (entire examined portion) appeared normal. The exam was otherwise without abnormality on direct and retroflexion views. Impression: - The entire examined colon is normal. - The examination was otherwise normal on direct and retroflexion views. - No specimens collected. Recommendation: - Discharge patient to home. - Resume previous diet. - Continue present medications. - Repeat colonoscopy in 10 years for screening purposes. Procedure Code(s): --- Professional --- 41403, Colonoscopy, flexible; diagnostic, including collection of specimen(s) by brushing or washing, when performed (separate procedure) CPT copyright 2021 [employer]. All rights reserved. The codes documented in this report are preliminary and upon hot end operator review may be revised to meet current compliance requirements. Albino Contreras DO 02/04/2025 3:25:05 PM This report has been signed electronically. Number of Addenda: 0 Note Initiated On: 02/04/2025 2:55 PM
--- NOTE | 2025-02-04 15:25 | OP.PROVAT_ITS ---
02/04/2025 Jasbir Wilson Re : Colonoscopy procedure for Deandra Han Dear Steve This procedure was performed on Tuesday, February 04, 2025. My impressions and recommendations are as follows: Impressions : - The entire examined colon is normal. - The examination was otherwise normal on direct and retroflexion views. - No specimens collected. Recommendations : - Discharge patient to home. - Resume previous diet. - Continue present medications. - Repeat colonoscopy in 10 years for screening purposes. My findings are described in the full procedure note, which is enclosed. If I can be of further assistance, please feel free to contact me at . Sincerely, Albino Contreras, 02/04/2025 3:25:05 PM This report has been signed electronically.
--- NOTE | 2025-02-04 19:14 | POSTOPAN2_ITS ---
Anesthesia Postop Eval I Sum Postop Eval Completion status Anesthesia document: Postop Eval 1 completed: Yes Anesthesia Postop Eval I Summary Anesthesia Postop Eval I Summary: Anesthesia Postop Eval I: Assessment Summary Airway patent Yes 02/04/25 15:14 [email or web address] Spontaneous unlabored Yes 02/04/25 15:14 [email or web address] [email or web address] respirations Mental status Awake,Calm 02/04/25 15:14 [email or web address] nausea No 02/04/25 15:14 [email or web address] Vomiting No 02/04/25 15:14 [email or web address] Anesthesia Postop Eval I: Fluid Summary Crystalloid volume administer 500 02/04/25 15:14 [email or web address] (ml) Colloids volume administered ( ml) Blood Product volume administered (ml) Total IV fluid infused 500 02/04/25 15:14 [email or web address] Anesthesia Postop Eval I: Summary Notes Anesthesia Complication No 02/04/25 15:14 [email or web address] Anesthesia Complication Comment: Post-operative progress note Anesthesia: Postop Eval II Evaluation Mental status: Awake and Calm Pain Level: 0 nausea: No Vomiting: No Complications Anesthesia Complication: No
--- NOTE | 2025-02-04 19:14 | PCM.POSTANE2 ---
Anesthesia Postop Eval I Sum Postop Eval Completion status Anesthesia document: Postop Eval 1 completed: Yes Anesthesia Postop Eval I Summary Anesthesia Postop Eval I Summary: Anesthesia Postop Eval I: Assessment Summary Airway patent Yes 02/04/25 15:14 ARMORED CAR GUARD [email or web address] Spontaneous unlabored Yes 02/04/25 15:14 ARMORED CAR GUARD [email or web address] respirations Mental status Awake,Calm 02/04/25 15:14 ARMORED CAR GUARD [email or web address] nausea No 02/04/25 15:14 ARMORED CAR GUARD [email or web address] Vomiting No 02/04/25 15:14 ARMORED CAR GUARD [email or web address] Anesthesia Postop Eval I: Fluid Summary Crystalloid volume administer 500 02/04/25 15:14 ARMORED CAR GUARD [email or web address] (ml) Colloids volume administered ( ml) Blood Product volume administered (ml) Total IV fluid infused 500 02/04/25 15:14 ARMORED CAR GUARD [email or web address] Anesthesia Postop Eval I: Summary Notes Anesthesia Complication No 02/04/25 15:14 ARMORED CAR GUARD [email or web address] Anesthesia Complication Comment: Post-operative progress note Anesthesia: Postop Eval II Evaluation Mental status: Awake and Calm Pain Level: 0 nausea: No Vomiting: No Complications Anesthesia Complication: No
== END 2025-02-04 16:14 | disposition home or self-care (01) ==
LOC: EN 13:58 → AC 14:00
PROVIDERS: PCP Family Medicine; Referring Provider Family Medicine; Visit Provider Internal Medicine Gastroenterology
PROC: 0DJD8ZZ Inspection of Lower Intestinal Tract, Via Natural or Artificial Opening Endoscopic (ICD-10-PCS; CPT 45378; principal; 2025-02-04 15:10)
DX: R10.12 Left upper quadrant pain (principal); K25.9 Gastric ulcer, unspecified as acute or chronic, without hemorrhage or perforation; Z87.891 Personal history of nicotine dependence; K76.0 Fatty (change of) liver, not elsewhere classified; K59.01 Slow transit constipation; Z79.899 Other long term (current) drug therapy; K21.9 Gastro-esophageal reflux disease without esophagitis; R14.0 Abdominal distension (gaseous)
CPT/HCPCS: 45378; 44361; 88305; 88342; J2405

== ENCOUNTER → 2025-04-23 | Outpatient (CLI) | payer MEDICAID, SELFPAY ==
[2025-04-23 12:58] VITALS: BP 108/68; PULSE 83; RESP 18; O2SAT 100; BMI 27.4
--- NOTE | 2025-04-23 13:10 | CT_ITS ---
PROCEDURE: LIMITED CHEST CT CARDIAC ONLY 04/23/2025 REASON FOR EXAM: CHEST PAIN TECHNIQUE: Procedure Code: [id number] Modality: CT Procedure: LIMITED CHEST CT CARDIAC ONLY CONTRAST: Isovue 370. 57 mL was injected. One or more dose reduction techniques were used (e.g., Automated exposure control, adjustment of the mA and/or kV according to patient size, use of iterative reconstruction technique). RADIATION DOSE SUMMARY: CTDlvol: 28 mGy DLP: 1008.61 mGycm COMPARISON: None FINDINGS: No coronary artery calcification is seen. The heart is nonenlarged. No evidence of pericardial effusion. The visualized portions of the lung is clear. Fatty infiltration of the liver. CT/Limited Chest CT Cardiac Only IMPRESSION: No coronary artery calcification is seen. Reading Location: [id number]
[2025-04-23 13:23] VITALS: BP 110/50; PULSE 86; RESP 18; O2SAT 99
--- NOTE | 2025-04-24 19:31 | CCTA_ITS ---
CCTA w/Cont Coronary Arteries Date of Study:: 04/23/25 Chest pain Coronary Calcium Scoring: High-resolution Computed Tomographic imaging of the chest was performed on [04/23/2025], with particular attention paid to the coronary arteries. Intravenous contrast agent was administered per protocol and images reconstructed and displayed. LEFT MAIN CORONARY ARTERY: Arises from the left coronary cusp and bifurcates the left anterior sending to left circumflex artery no significant atherosclerotic plaquing or stenosis is noted. [] LEFT ANTERIOR DESCENDING CORONARY ARTERY: Medium size vessel with no ath erosclerotic plaquing or stenosis present [] LEFT CIRCUMFLEX CORONARY ARTERY: Nondominant vessel with no significant atherosclerotic plaquing or stenosis present [] RIGHT CORONARY ARTERY: Dominant right coronary artery with no significant atherosclerotic plaquing or stenosis present. [] CORONARY CALCIUM SCORE: [] Calcium Scoring Interpretation: Different methods to categorize the overall amount of coronary plaque. Overall amount CAC SIS Visual of coronary plaque P1 Mild -100 <2 1-2 vessels with mild amount of plaque P2 Moderate 101-300 3-4 1-2 vessels with moderate amount, 3 vessels with mild amount of plaque P3 Severe 301-999 5-7 3 vessels with moderate amount, 1 vessel with severe amount of plaque P4 Extensive >1000 >8 2-3 vessels with severe amount of plaque Conclusion: CT angiogram with no atherosclerotic plaquing or stenosis present.
== END | disposition home or self-care (01) ==
LOC: CT 12:44
PROVIDERS: PCP Family Medicine; Referring Provider Internal Medicine Cardiovascular Disease; Visit Provider Internal Medicine Cardiovascular Disease
DX: K21.9 Gastro-esophageal reflux disease without esophagitis (principal); R07.9 Chest pain, unspecified
CPT/HCPCS: 75574; 76380; Q9967

== ENCOUNTER → 2025-04-25 | Outpatient (CLI) | payer MEDICAID, SELFPAY ==
[2025-04-25 17:24] LABS: Hematocrit 39.8 % (37-47); Hemoglobin 13.6 g/dL (12.0-15.0); Immature Granulocytes Count 0.010 X10^3/uL (0.0-0.0); Mean Corp Hgb Conc 34.2 g/dL (32-36); Mean Corpuscular Volume 87.9 fL (81-99); Mean Platelet Vol. 11.0 fl (6.2-12.0); NRBC Flagged by Analyzer 0 % (0-5); Platelet Count 245 K/mm3 (150-450); RBC Distribution Width CV 12.3 % (11.6-14.6); RBC Distribution Width SD 39.6 fl (35.1-43.9); Red Blood Count 4.53 M/mm3 (4.2-5.4); White Blood Count 7.2 K/mm3 (4.4-11.0)
[2025-04-25 17:30] LABS: Prothrombin Time (Protime)PT. 13.7 SECONDS (11.7-14.9)
[2025-04-25 17:35] LABS: AST(SGOT) 21 U/L (<=31); Alanine Aminotransfer ALT/SGPT 30 U/L (<=34); Albumin, Serum 4.4 g/dL (3.5-5.0); Alkaline Phosphatase 54 U/L (35-104); Anion Gap 9 (5-15); BUN 9 mg/dL (4-19); BUN/Creat Ratio 12.1 RATIO (10-20); Calcium,Total 9.0 mg/dL (7.6-11.0); Carbon Dioxide 22.2 mmol/L (21.0-32.0); Chloride 107 mmol/L (98-108); Globulin 2.8 g/dL (2.2-4.2); Glucose 92 mg/dL (70-99); Potassium 3.4 mmol/L (3.3-5.1)
== END | disposition home or self-care (01) ==
LOC: LAB 16:41
PROVIDERS: PCP Family Medicine; Referring Provider Nurse Practitioner Acute Care; Visit Provider Internal Medicine Gastroenterology
DX: K76.0 Fatty (change of) liver, not elsewhere classified (principal); R10.12 Left upper quadrant pain; R14.0 Abdominal distension (gaseous); K25.9 Gastric ulcer, unspecified as acute or chronic, without hemorrhage or perforation; K62.5 Hemorrhage of anus and rectum; R19.5 Other fecal abnormalities
CPT/HCPCS: 36415; 80053; 85025; 85610

== ENCOUNTER → 2025-05-07 | Outpatient (CLI) | payer MEDICAID, SELFPAY ==
[2025-05-07 11:47] LABS: Cholesterol 190 mg/dL (<=200); Ferritin 61 ng/mL (22-378); Low Density Lipoprotein Calc. 117 mg/dL; Triglycerides 100 mg/dL; Very Low Density Lipoprotein 20 mg/dL (5-40); Vitamin D,25 Hydroxy 12.3 ng/mL (30-100); cholesterol:hdl ratio screen 3.49
[2025-05-07 11:59] LABS: Iron Binding Capacity,Total 267 ug/dL (250-450)
[2025-05-07 12:03] LABS: CRP < 3.00 mg/L (0.0-3.0); Iron 139 ug/dL (50-170); Iron Binding Capacity,Unsat 128 ug/dL (228-428)
[2025-05-08 13:08] LABS: Anti-Smooth Muscle ABS 9 Units (0-19)
[2025-05-09 15:08] LABS: ANTINUCLEAR ANTIBODIES DIRECT Positive (Negative); Anti-Chromatin <0.2 AI (0.0-0.9); Anti-Jo <0.2 AI (0.0-0.9); Anti-dsDNA Ab 1 IU/mL (0-9); SJOGREN'S Anti-SS-A test < 0.2 AI (0.0-0.9); SJOGREN'S Anti-SS-B test < 0.2 AI (0.0-0.9)
[2025-05-14 09:09] LABS: Calprotectin, Stool 25 ug/g (0-120)
== END | disposition home or self-care (01) ==
LOC: LABSPEC 09:55
PROVIDERS: Internal Medicine; PCP Family Medicine; Referring Provider Internal Medicine Gastroenterology; Visit Provider Internal Medicine Gastroenterology
DX: K76.0 Fatty (change of) liver, not elsewhere classified (principal); R10.12 Left upper quadrant pain; K25.9 Gastric ulcer, unspecified as acute or chronic, without hemorrhage or perforation
CPT/HCPCS: 36415; 80061; 82306; 82390; 82653; 82728; 83036; 83516; 83540; 83550; 83630; 83993; 86038; 86140; 86225; 86235; 87177; 87209; 87329

== ENCOUNTER 2025-05-09 12:53 | Day surgery (SDC) | payer MEDICAID, SELFPAY ==
--- NOTE | 2025-05-08 10:20 | PAT.ANE_ITS ---
Pre-Assessment Diagnosis/Proposed Procedure Planned Operative Procedure(s): EGD Anesthesia History Anesthesia History - assembler for puller over machine: Anesthesia History - assembler for puller over machine Hx Hospitalization No 05/08/25 08:28 Any Problems With Anesthesia No 05/08/25 08:28 Cholinesterase deficiency No 05/08/25 08:28 You/Your Family Experience No 05/08/25 08:28 fever (hyperthermia) with Relationship Recent Exposure to Contagious No 02/04/25 14:13 Disease Does patient have nerve No 05/08/25 08:28 stimulator Patient instructed to have device shut off --Does patient have Pacemaker or ICD? When Was Last Pacemaker Check QUESTION #4 FULL TEXT: You/Your Family Experience fever (hyperthermia) with Anesthesia Last Oral Intake Last Oral intake: Last Oral Intake NPO since Meds taken in AM with sips of water? Meds patient instructed to take am of surgery PONV PONV - assembler for puller over machine: PONV - assembler for puller over machine Female Yes 05/08/25 08:28 HX of Motion Sickness Yes 05/08/25 08:28 HX of N/V After Surgery No 05/08/25 08:28 Non-Smoker Yes 05/08/25 08:28 Duration of Surgery greater No 05/08/25 08:28 than 60 minutes Number of Risk Factors 3 05/08/25 08:28 PONV Score Moderate Risk 05/08/25 08:28 Height & Weight Height & Weight: Anesthesia: Height & Weight Height 5 ft 4 in 04/23/25 12:58 Respiratory Assessment Respiratory Assessment - assembler for puller over machine: Respiratory Tract Infection Hx - assembler for puller over machine Hx Respiratory Tract Infection No 05/08/25 08:28 STOP Sleep Apnea STOP Sleep Apnea - assembler for puller over machine: STOP Sleep Apnea - assembler for puller over machine Hx Hypertension No 05/08/25 08:28 Hx Sleep Apnea No 05/08/25 08:28 CPAP BIPAP Do you snore loudly (louder No 05/08/25 08:28 than talking or can be heard Do you often feel tired/ No 05/08/25 08:28 fatigued/ sleepy during daytime? Has anyone observed you stop No 05/08/25 08:28 breathing during sleep? STOP Results Negative 05/08/25 08:28 QUESTION #5 FULL TEXT : Do you snore loudly (louder than talking or can be heard through closed doors)? Tobacco Use History Tobacco Use History - assembler for puller over machine: Tobacco Use History - assembler for puller over machine Tobacco Use Cigarettes 12/04/20 08:57 Smoking Status Former smoker 05/08/25 08:28 Hx Tobacco Use Yes 05/08/25 08:28 Years Smoking Packs Smoked per Day Smoking Cessation Date was Yes - quit smoking within 15 05/08/25 08:28 within the last 15 years years Hx Smoking Cessation Date Hx Smoking Cessation Counseling Hematologic Medial History Hematologic Hx - assembler for puller over machine: Hematologic Medical Hx - nailer machine Hx of Blood Transfusion Yes 05/08/25 08:28 Hx of Transfusion in last 3 No 05/08/25 08:28 Months Date of Last Transfusion (if within last 3 months) Ever experience any problems No 05/08/25 08:28 with transfusion(s)? Specify any problems Hx of Preganancy in last 3 No 05/08/25 08:28 Months Nurse Filling Out Transfusion [email or web address] 05/08/25 08:28 & Questions: Date: 05/08/25 05/08/25 08:28 Time: 08:30 05/08/25 08:28 Patient unable to answer at this time (ie. 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 Nicotine dependence History of TIA (transient ischemic attack) Depression Endometriosis Herpes Carcinoma in situ of cervix uteri IBS (irritable bowel syndrome) GERD (gastroesophageal reflux disease) Patent foramen ovale Migraines History of tobacco use Home Medications Medication Instructions Recorded Last Taken Type sucralfate 100 mg/mL oral 10 ml PO QACHS 1 month #1,20 0 mL 04/09/25 Unknown Rx suspension (Carafate) pantoprazole 40 mg tablet,delayed 40 mg PO BID 5 Unknown History release potassium chloride 10 mEq 20 meq PO BID 05/08/25 Unkno wn History tablet,extended release (Klor-Con) Allergy/AdvReac Type Severity Reaction Status Date / Time Bleach (Sodium Hypochlorite) Allergy Mild Rash Verified 05/08/25 08:17 codeine AdvReac Severe migraine Verified 05/08/25 08:17 sucralfate (From Carafate) AdvReac Intermediate dizzy, Verified 05/08/25 08:42 nausea hydrocodone AdvReac migraine Verified 05/08/25 08:17 paroxetine (From Paxil) AdvReac migraine Verified 05/08/25 08:17 Family History Grandfather Heart disease Diabetes CVA (cerebral vascular accident) Myocardial infarction Grandmother Heart disease Diabetes Mother SLE (systemic lupus erythematosus) Hypertension Hyperlipidemia COPD (chronic obstructive pulmonary disease) CVA (cerebral vascular accident) Heart failure Father CAD (coronary artery disease) Hyperlipidemia Hypertension Diabetes Sister Addiction Developmental delay Grandfather Cancer Myocardial infarction Diabetes Surgical History (Updated 05/08/25 @ 08:28 by Polly Haskins) History of laparoscopy History of esophagogastroduodenoscopy (EGD) H/O LEEP History of colonoscopy History of History of tubal ligation Social History Smoking Status: Former smoker alcohol intake: never substance use type: does not use Audit: Pertinent Findings Pertinent Findings EKG Perinent findings: January 15, 2025. Normal sinus rhythm. Stress test pertinent findings: March 2024. No evidence of ischemia. Echo (EF%) pertinent findings: March 2024. No evidence of wall motion abnormalities. Preserved ejection fraction. Consult pertinent findings: April 29, 2025. Ryan CHAND. Patient is cleared for procedure. No further testing needed prior to procedure. January 15, 2025. Dr. Robles. 1. Chest pain-atypical for coronary disease. Likely gastrointestinal reflux. Recent stress and echo were normal. Plan for CT angiogram after upper GI. Additional pertinent findings: Zio patch. Average heart rate of 85 with a range of 47-178 in sinus tachycardia. Recommendation Anesthesia Recommendation Anesthesia recommendation: OPTIMIZED for anesthesia
[2025-05-09] VITALS (9 sets, daily range): BP systolic 97–113; BP diastolic 60–85; PULSE 65–114; RESP 14–16; TEMP 36.5–37.2; O2SAT 96–100; BMI 28.3
[2025-05-09] MEDS: Lactated Ringers 1,000 ML 15 ML IV (13:25)
--- NOTE | 2025-05-09 13:39 | PCM.PRE.AN2 ---
ASA Classification* ASA Classification ASA Classification: 2 Assessment & Plan Anesthesia* Anesthesia Assessment Anesthesia Assessment: Discussed sedation and/or anesthesia options, risks, benefits, and alternatives with patient/parents/legal guardian/POA. Questions invited. The patient/parents/legal guardian/POA seems to understand and agrees to proceed with anesthesia plan. Reviewed the physical assessment, medical history, allergy history and patient home medications list prior to surgery/procedure/anesthetic and documented any changes. Performed airway and anesthesia risk assessments. Anesthesia Type Anesthesia Type: MAC History Source History Obtained from:: Patient and Chart Anesthesia Focused Assessment* Temperature: 98.9 F Pulse Rate: 86 Blood Pressure: 97/65 Respiratory Rate: 16 Pulse Ox: 99 Oxygen Delivery Method: Room Air Airway Assessment Mouth opens: >3 cm Mallampati Score: II Teeth Condition: Missing (1 missing right lower molar. The rest are tight.) Neck Range of motion (ROM): Full ROM Comment: Patient has a bonded veneer on #9. Labs Anesthesia Preop lab: CBC WBC, (4.4-11.0) 7.2 K/mm3 04/25/25, 16:46 RBC, (4.2-5.4) 4.53 M/mm3 04/25/25, 16:46 Hgb, (12.0-15.0) 13.6 g/dL 04/25/25, 16:46 Hct, (37-47) 39.8 % 04/25/25, 16:46 Plt Count, (150-450) 245 K/mm3 04/25/25, 16:46 CHEMISTRY Potassium, (3.3-5.1) 3.4 mmol/L 04/25/25, 16:46 Sodium, (133-145) 139 mmol/L 04/25/25, 16:46 BUN, (4-19) 9 mg/dL 04/25/25, 16:46 Creatinine, (0.70-1.20) 0.77 mg/dL 04/25/25, 16:46 Glucose, (70-99) 92 mg/dL 04/25/25, 16:46 TSH, (0.300-4.200) 1.070 uIU/mL 01/15/25, 07:17 COAG PT, (11.7-14.9) 13.7 SECONDS 04/25/25, 16:46 Pre-Assessment Diagnosis/Proposed Procedure Planned Operative Procedure(s): EGD Anesthesia History Anesthesia History - database security administrator: Anesthesia History - database security administrator Hx Hospitalization No 05/08/25 08:28 Any Problems With Anesthesia No 05/08/25 08:28 Cholinesterase deficiency No 05/08/25 08:28 You/Your Family Experience No 05/08/25 08:28 fever (hyperthermia) with Relationship Recent Exposure to Contagious No 05/09/25 13:25 Disease Does patient have nerve No 05/08/25 08:28 stimulator Patient instructed to have device shut off --Does patient have Pacemaker No 05/09/25 13:25 or ICD? When Was Last Pacemaker Check QUESTION #4 FULL TEXT: You/Your Family Experience fever (hyperthermia) with Anesthesia Last Oral Intake Last Oral intake: Last Oral Intake NPO since 19:00 05/09/25 13:25 Meds taken in AM with sips of No 05/09/25 13:25 water? Meds patient instructed to take am of surgery PONV PONV - database security administrator: PONV - database security administrator Female Yes 05/08/25 08:28 HX of Motion Sickness Yes 05/08/25 08:28 HX of N/V After Surgery No 05/08/25 08:28 Non-Smoker Yes 05/08/25 08:28 Duration of Surgery greater No 05/08/25 08:28 than 60 minutes Number of Risk Factors 3 05/08/25 08:28 PONV Score Moderate Risk 05/08/25 08:28 Height & Weight Height & Weight: Anesthesia: Height & Weight Height 5 ft 4 in 05/09/25 13:25 Weight: 75 kg 05/09/25 13:25 Body Mass Index (BMI) 28.3 05/09/25 13:25 Respiratory Assessment Respiratory Assessment - database security administrator: Respiratory Tract Infection Hx - database security administrator Hx Respiratory Tract Infection No 05/08/25 08:28 STOP Sleep Apnea STOP Sleep Apnea - database security administrator: STOP Sleep Apnea - database security administrator Hx Hypertension No 05/08/25 08:28 Hx Sleep Apnea No 05/08/25 08:28 CPAP BIPAP Do you snore loudly (louder No 05/08/25 08:28 than talking or can be heard Do you often feel tired/ No 05/08/25 08:28 fatigued/ sleepy during daytime? Has anyone observed you stop No 05/08/25 08:28 breathing during sleep? STOP Results Negative 05/08/25 08:28 QUESTION #5 FULL TEXT : Do you snore loudly (louder than talking or can be heard through closed doors)? Tobacco Use History Tobacco Use History - database security administrator: Tobacco Use History - database security administrator Tobacco Use Cigarettes 12/04/20 08:57 Smoking Status Former smoker 05/08/25 08:28 Hx Tobacco Use Yes 05/08/25 08:28 Years Smoking Packs Smoked per Day Smoking Cessation Date was Yes - quit smoking within 15 05/08/25 08:28 within the last 15 years years Hx Smoking Cessation Date Hx Smoking Cessation Counseling Hematologic Medial History Hematologic Hx - database security administrator: Hematologic Medical Hx - re recording mixer Hx of Blood Transfusion Yes 05/08/25 08:28 Hx of Transfusion in last 3 No 05/08/25 08:28 Months Date of Last Transfusion (if within last 3 months) Ever experience any problems No 05/08/25 08:28 with transfusion(s)? Specify any problems Hx of Preganancy in last 3 No 05/08/25 08:28 Months Nurse Filling Out Transfusion JZOLLINGE 05/08/25 08:28 & Questions: Date: 05/08/25 05/08/25 08:28 Time: 08:30 05/08/25 08:28 Patient unable to answer at this time (ie. confused, unrespo /Reproduction History /Reproductive History - database security administrator: /Reproductive Hx- database security administrator Hx Now No 05/08/25 08:28 Gestational Age (in weeks): EDC: Hx Hx Para Hx Section SAB No 05/08/25 08:28 Does the father of the baby or his family experience fever w Father of the baby Malignant Hypertension history comment Active Medications Active Medications: Current Medications Generic Name Dose Route Start Last Admin Trade Name Freq PRN Reason Stop Dose Admin Lactated Ringer's 1,000 mls @ 15 mls/hr 05/09/25 13:00 05/09/25 13:25 IV 15 mls/hr .Q48H LORIN Administration PFSH Medical History Teeth missing Anxiety Fibrosis of liver History of IBS History of GI bleed History of edema History of echocardiogram Cardiology follow-up encounter Former smoker Hypotension 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 Nicotine dependence History of TIA (transient ischemic attack) Depression Endometriosis Herpes Carcinoma in situ of cervix uteri IBS (irritable bowel syndrome) GERD (gastroesophageal reflux disease) Patent foramen ovale Migraines History of tobacco use Home Medications Medication Instructions Recorded Last Taken Type pantoprazole 40 mg tablet,delayed 40 mg PO BID 05/08/25 Unknown History release potassium chloride 10 mEq 20 meq PO BID 05/08/25 Unknown History tablet,extended release (Klor-Con) Allergy/AdvReac Type Severity Reaction Status Date / Time Bleach (Sodium Hypochlorite) Allergy Mild Rash Verified 05/09/25 13:19 codeine AdvReac Severe migraine Verified 05/09/25 13:19 sucralfate (From Carafate) AdvReac Intermediate dizzy, Verified 05/09/25 13:19 nausea hydrocodone AdvReac migraine Verified 05/09/25 13:19 paroxetine (From Paxil) AdvReac migraine Verified 05/09/25 13:19 Family History Grandfather Heart disease Diabetes CVA (cerebral vascular accident) Myocardial infarction Grandmother Heart disease Diabetes Mother SLE (systemic lupus erythematosus) Hypertension Hyperlipidemia COPD (chronic obstructive pulmonary disease) CVA (cerebral vascular accident) Heart failure Father CAD (coronary artery disease) Hyperlipidemia Hypertension Diabetes Sister Addiction Developmental delay Grandfather Cancer Myocardial infarction Diabetes Surgical History History of laparoscopy History of esophagogastroduodenoscopy (EGD) H/O LEEP History of colonoscopy History of History of tubal ligation Social History Smoking Status: Former smoker alcohol intake: never substance use type: does not use Review of Systems (Anesthesia) ROS Narrative System reviewed and no additional complaints, except as documented.
--- NOTE | 2025-05-09 13:47 | PCM.HP.STD ---
HPI - General General Date of Admission: 05/09/25 Date of Service: 05/09/25 Chief Complaint: Abdominal pain HPI Narrative CRYSTAL MCCRAY, is a 39 F who presents [Chief Complaint: Fatty liver US abd 7.9.25- Liver measures 15.1cm, Fatty infiltration of liver Elastography 7.23.25- Stiffness 25.4 kPa 7.23.25- Fib-4 0.70 04/09/2025: Patient complained of left upper quadrant/epigastric pain. She has multiple gastric ulcers as shown in recent EGD. Colonoscopy was normal. She also has anxiety. As above ultrasound shows median liver stem 25.4 with fatty infiltration. Social history: Started smoking in high school at the age of 16–17, half pack per day and then quit 1 year 3 months ago about October 2023. 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 Nicotine dependence History of TIA (transient ischemic attack) Depression Endometriosis Herpes Carcinoma in situ of cervix uteri IBS (irritable bowel syndrome) GERD (gastroesophageal reflux disease) Patent foramen ovale Migraines History of tobacco use Home Medications Medication Instructions Recorded Last Taken Type pantoprazole 40 mg tablet,delayed 40 mg PO BID 05/08/25 Unknown History release potassium chloride 10 mEq 20 meq PO BID 05/08/25 Unknown History tablet,extended release (Klor-Con) Allergy/AdvReac Type Severity Reaction Status Date / Time Bleach (Sodium Hypochlorite) Allergy Mild Rash Verified 05/09/25 13:19 codeine AdvReac Severe migraine Verified 05/09/25 13:19 sucralfate (From Carafate) AdvReac Intermediate dizzy, Verified 05/09/25 13:19 nausea hydrocodone AdvReac migraine Verified 05/09/25 13:19 paroxetine (From Paxil) AdvReac migraine Verified 05/09/25 13:19 Family History Grandfather Heart disease Diabetes CVA (cerebral vascular accident) Myocardial infarction Grandmother Heart disease Diabetes Mother SLE (systemic lupus erythematosus) Hypertension Hyperlipidemia COPD (chronic obstructive pulmonary disease) CVA (cerebral vascular accident) Heart failure Father CAD (coronary artery disease) Hyperlipidemia Hypertension Diabetes Sister Addiction Developmental delay Grandfather Cancer Myocardial infarction Diabetes Surgical History History of laparoscopy History of esophagogastroduodenoscopy (EGD) H/O LEEP History of colonoscopy History of History of tubal ligation Social History Smoking Status: Former smoker alcohol intake: never substance use type: does not use ROS Constitutional Constitutional: Denies fatigue, fever(s), poor appetite, weight gain or weight loss Gastrointestinal Gastrointestinal: Denies belching, bloating, change in bowel habits, change in stool character, chewing difficulty, coffee ground emesis, constipation, cramping, diarrhea, dyspepsia, dysphagia, early satiety, excessive flatus, fecal incontinence, heartburn, hematemesis, hematochezia, hemorrhoids, loose stools, melena, nausea, odynophagia, rectal bleeding, tenesmus, vomiting or weight changes Vital Signs Vital Signs Vital Signs: 05/09/25 13:25 05/09/25 13:25 Temperature 98.9 F Temperature Source Temporal Pulse Rate 86 Respiratory Rate 16 Respiratory Pattern Normal Blood Pressure 97/65 Blood Pressure Mean 75 Blood Pressure Source Monitor Blood Pressure Position Semi-Fowlers Blood Pressure Location Right Arm Pulse Ox 99 Oxygen Delivery Method Room Air Weight Weight: 165 lb 5.547 oz Body Mass Index (BMI) 28.3 Physical Exam Const alert, oriented x3, no apparent distress and healthy appearing General Appearance: cooperative GI normal to inspection, nondistended, normoactive bowel sounds, soft to palpation, non-tender and non-distended Percussion: normal to percussion Rectal Exam: deferred Assessment & Plan Assessment/Plan (1) Gastric ulcer: (2) BRBPR (bright red blood per rectum): PLAN: Assessment and Plan Assessment and Plan (1) Gastric ulcer: Status: Chronic Plan: EGD 02/04/2025 - negative for H. pylori - Normal esophagus. - Non-bleeding gastric ulcers with no stigmata of bleeding. Three non-bleeding cratered gastric ulcers with no stigmata of bleeding were found in the gastric body. The largest lesion was 5 mm in largest dimension. - No gross lesions in the entire examined duodenum. - Use Protonix (pantoprazole) 40 mg PO BID for 3 months As patient is still have pain, Carafate 1 g 4 times daily, ACHS prescribed please do not take medication 1 hour before or 2 hours after Carafate. (2) LUQ pain: Status: Chronic Plan: Probably due to ulcer. Etiology of ulcer still not clear. Probable cultures might be smoking, possible genetic predisposition. She said she was taking Aleve probably once in a month for her migraine headache (3) Fatty liver: Status: Chronic Plan: Repeat FibroScan from [facility] Shows CAP score 215, median liver fibrosis 4.3, 12% IQR/median which is more reliable than previous liver ultrasound elastography which shows E QI 25.4 with IQR/med less than 30%, median velocity 2.9 m/s. Patient has normal platelet count, normal albumin and does not seem any outstanding cause for rapid progression of liver fibrosis or cirrhosis in her age group. As per MASLD, 215 of falls in grade 0 or at most grade 1 with another society S1 ([phone]). I feel like this current FibroScan may be underestimation as her ELF score is 8.34 which is more suggestive of moderate liver fibrosis. Advised repeat liver FibroScan in 8 months. Clinically I do not think she has advanced liver fibrosis. Lab test ordered to rule out other etiologies of liver disease. Hepatitis panel is negative, TSH, CBC, CMP, fib4= 0.7, advanced fibrosis and leg. Agile 3+ = 0.07 which is less than 0.45 suggestive of low risk for advanced liver fibrosis, 85% sensitive. Orders: ]
--- NOTE | 2025-05-09 14:00 | EGD_PTH ---
PATIENT: CRYSTAL MCCRAY LOC: EN U#:[id number] AGE/SX: 39/F ROOM: RE05/09/[address]: Dr. Albino Contreras DO : 1985 BED: DIS: 05/09/2025 SPEC #: [id number] RECD: 05/09/25 15:17 STATUS: MOHIT REBimal #: [id number] JENNIFER: 05/09/25 14:[address]: Albino Contreras DEPT: SURGICAL PATHOLOGY RECD BY: Claudy Loyola ENTERED: 05/09/25 15:31 SP TYPE: EGD BIOPSY DYAN DR: Dr. Jasbir Wilson MD Tissues: A - Duodenum, NOS B - Gastric mucous membrane Procedures: Immunohistochemical Stains Surgery Specimen Level IV HEADER OPERATION: EGD, biopsy PRE-OP DIAGNOSIS: Gastric ulcer, left upper quadrant pain, fatty liver TISSUE SUBMITTED: A- Duodenum biopsy, B- Gastric antrum biopsy MICROSCOPIC DIAGNOSIS A. Small intestine, duodenum, biopsy: * Small bowel mucosa with no pathologic change B. Stomach, gastric antrum, biopsy: * Antral mucosa with mild chronic inflammation * No evidence of Helicobacter pylori organisms on H&E or immunostained sections MICROSCOPIC DESCRIPTION Slides are reviewed. All matched controls reacted appropriately. These tests were developed and their performance characteristics determined by [facility]. They may not have been cleared or approved by the U.S. Food and Drug Administration. The FDA has determined that such clearance or approval is not necessary. The above immunohistochemical markers are viewed by the Pathologist. GROSS DESCRIPTION A. Received in fixative is one container labeled with the patient's name and designated "Duodenum biopsy." The specimen consists of two irregular fragments of rivera tissue that measure 0.4 and 0.5 cm. The specimen is totally submitted in one cassette. B. Received in fixative is one container labeled with the patient's name and designated "Gastric antrum biopsy." The specimen consists of one irregular fragment of rivera tissue that measures 0.5 cm. The specimen is totally submitted in one cassette. MI 05/09/2025 CPT:86283s7,99260
[2025-05-09] MEDS: Lidocaine 1% (5 ml sdv) 5 ML Vial 10 ML IV (14:56)
--- NOTE | 2025-05-09 15:09 | OP.PROVAT_ITS ---
05/09/2025 Jasbir Wilson Re : Upper GI endoscopy procedure for Deandra Han Dear Steve This procedure was performed on Friday, May 09, 2025. My impressions and recommendations are as follows: Impressions : - Normal esophagus. - Erythematous mucosa in the antrum. Biopsied. - Erythematous duodenopathy. Biopsied. Recommendations : - Await pathology results. - Continue present medications. My findings are described in the full procedure note, which is enclosed. If I can be of further assistance, please feel free to contact me at . Sincerely, Albino Contreras, 05/09/2025 3:08:59 PM This report has been signed electronically.
--- NOTE | 2025-05-09 15:09 | OP.EGD_ITS ---
Patient Name: Deandra Han Procedure Date: 05/09/2025 2:48 PM Date of : 1985 Age: 39 Procedure: Upper GI endoscopy Indications: Epigastric abdominal pain, Abdominal pain in the left lower quadrant Providers: Albino Contreras DO Referring MD: Jasbir Wilson Medicines: Monitored Anesthesia Care Patient Profile: This is a 39 year old female. Refer to note in patient chart for documentation of history and physical. Patient has symptoms of chronic abdominal cramping, acute left upper quadrant abdominal pain and chronic left lower quadrant abdominal pain. Complications: No immediate complications. Procedure: Pre-Anesthesia Assessment: - Prior to the procedure, a History and Physical was performed, and patient medications and allergies were reviewed. The patient is competent. The risks and benefits of the procedure and the sedation options and risks were discussed with the patient. All questions were answered and informed consent was obtained. Patient identification and proposed procedure were verified by the physician in the pre-procedure area. Mental Status Examination: alert and oriented. Airway Examination: normal oropharyngeal airway and neck mobility. Respiratory Examination: clear to auscultation. CV Examination: normal. Prophylactic Antibiotics: The patient does not require prophylactic antibiotics. Prior Anticoagulants: The patient has taken no anticoagulant or antiplatelet agents except for NSAID medication. ASA Grade Assessment: II - A patient with mild systemic disease. After reviewing the risks and benefits, the patient was deemed in satisfactory condition to undergo the procedure. The anesthesia plan was to use monitored anesthesia care (MAC). Immediately prior to administration of medications, the patient was re-assessed for adequacy to receive sedatives. The heart rate, respiratory rate, oxygen saturations, blood pressure, adequacy of pulmonary ventilation, and response to care were monitored throughout the procedure. The physical status of the patient was re-assessed after the procedure. After obtaining informed consent, the endoscope was passed under direct vision. Throughout the procedure, the patient's blood pressure, pulse, and oxygen saturations were monitored continuously. The gastroscope was introduced through the mouth, and advanced to the fourth part of the duodenum. Small bowel enteroscopy was deemed necessary. The upper GI endoscopy was accomplished without difficulty. The patient tolerated the procedure well. Scope In: 3:00:26 PM Scope Out: 3:03:29 PM Total Procedure Duration Time 0 hours 3 minutes 3 seconds Findings: The examined esophagus was normal. Patchy mildly erythematous mucosa without bleeding was found in the gastric antrum. Biopsies were taken with a cold forceps for histology. Biopsies were taken with a cold forceps for Helicobacter pylori testing. Verification of patient identification for the specimen was done. Estimated blood loss was minimal. Patchy mildly erythematous mucosa without active bleeding and with no stigmata of bleeding was found in the entire duodenum. Biopsies were taken with a cold forceps for histology. Impression: - Normal esophagus. - Erythematous mucosa in the antrum. Biopsied. - Erythematous duodenopathy. Biopsied. Recommendation: - Await pathology results. - Continue present medications. Procedure Code(s): --- Professional --- 25570, Small intestinal endoscopy, enteroscopy beyond second portion of duodenum, not including ileum; with biopsy, single or multiple CPT copyright 2021 [employer]. All rights reserved. The codes documented in this report are preliminary and upon systems test analyst review may be revised to meet current compliance requirements. Albino Contreras DO 05/09/2025 3:08:59 PM This report has been signed electronically. Number of Addenda: 0 Note Initiated On: 05/09/2025 2:48 PM
--- NOTE | 2025-05-09 15:09 | PCM.POST.ANE ---
Anesthesia: Postop Eval I Current Vital Signs Temperature: 97.7 F Pulse Rate: 90 Blood Pressure: 98/60 Respiratory Rate: 16 Pulse Ox: 96 Oxygen Delivery Method: Room Air Assessment Airway patent: Yes Spontaneous unlabored respirations: Yes Mental status: Asleep nausea: No Vomiting: No Anesthesia Complication: No Fluid Hydration Crystalloid volume administer (ml): 500 Total IV fluid infused: 500 Progress Note Anesthesia document: Postop Eval 1 completed: Yes
--- NOTE | 2025-05-09 15:35 | SUR.PHASEII ---
pt awakens from anesthesia and states "I can't live like this anymore, I'll put a bullet in my head. My kids already know this and it's not just the anesthesia talking." This RN asked what can she not live with and pt states "this pain I've been having, i'll do it, i'll put a bullet in my my head. edge stainer Joy made aware as well as Myla manager investment. Effie from called an states she'll come an evaluate patient.
--- NOTE | 2025-05-09 15:43 | POSTOPAN2_ITS ---
Anesthesia Postop Eval I Sum Postop Eval Completion status Anesthesia document: Postop Eval 1 completed: Yes Anesthesia Postop Eval I Summary Anesthesia Postop Eval I Summary: Anesthesia Postop Eval I: Assessment Summary Airway patent Yes 05/09/25 15:10 VULCANIZING PRESS OPERATOR.SKOBY Spontaneous unlabored Yes 05/09/25 15:10 VULCANIZING PRESS OPERATOR.NAIMA respirations Mental status Asleep 05/09/25 15:10 VULCANIZING PRESS OPERATOR.SKOBY nausea No 05/09/25 15:10 VULCANIZING PRESS OPERATOR.SKOBY Vomiting No 05/09/25 15:10 VULCANIZING PRESS OPERATOR.[email or web address] Anesthesia Postop Eval I: Fluid Summary Crystalloid volume administer 500 05/09/25 15:10 VULCANIZING PRESS OPERATOR.SKOBY (ml) Colloids volume administered ( ml) Blood Product volume administered (ml) Total IV fluid infused 500 05/09/25 15:10 VULCANIZING PRESS OPERATOR.[email or web address] Anesthesia Postop Eval I: Summary Notes Anesthesia Complication No 05/09/25 15:10 VULCANIZING PRESS OPERATOR.[email or web address] Anesthesia Complication Comment: Post-operative progress note Anesthesia: Postop Eval II Evaluation Mental status: Awake and Calm Pain Level: 0 nausea: No Vomiting: No Complications Anesthesia Complication: No
--- NOTE | 2025-05-09 15:43 | PCM.POSTANE2 ---
Anesthesia Postop Eval I Sum Postop Eval Completion status Anesthesia document: Postop Eval 1 completed: Yes Anesthesia Postop Eval I Summary Anesthesia Postop Eval I Summary: Anesthesia Postop Eval I: Assessment Summary Airway patent Yes 05/09/25 15:10 PREPARATION PLANT REPAIRER.[email or web address] Spontaneous unlabored Yes 05/09/25 15:10 PREPARATION PLANT REPAIRER.NAIMA respirations Mental status Asleep 05/09/25 15:10 PREPARATION PLANT REPAIRER.SKOBY nausea No 05/09/25 15:10 PREPARATION PLANT REPAIRER.SKOBY Vomiting No 05/09/25 15:10 PREPARATION PLANT REPAIRER.[email or web address] Anesthesia Postop Eval I: Fluid Summary Crystalloid volume administer 500 05/09/25 15:10 PREPARATION PLANT REPAIRER.SKOBY (ml) Colloids volume administered ( ml) Blood Product volume administered (ml) Total IV fluid infused 500 05/09/25 15:10 PREPARATION PLANT REPAIRER.MARIOOBButch Anesthesia Postop Eval I: Summary Notes Anesthesia Complication No 05/09/25 15:10 PREPARATION PLANT REPAIRER.[email or web address] Anesthesia Complication Comment: Post-operative progress note Anesthesia: Postop Eval II Evaluation Mental status: Awake and Calm Pain Level: 0 nausea: No Vomiting: No Complications Anesthesia Complication: No
--- NOTE | 2025-05-09 16:55 | SUR.PHASEII ---
TIA Chou is speaking with patient.
--- NOTE | 2025-05-10 20:20 | CM.ED ---
Social Work Date of referral: 05/10/25 Reason for referral: Safety Plan follow up call Referred by: Effie Ingram Unsuccessful call to patient. No answer. General Maintenance Technician left a message with her name and number and requested a return call. Destini Bassett, DIRECTOR OF CODING, CARRIER LOADER
--- NOTE | 2025-05-11 14:34 | CM.ED ---
Social Work Date of referral: 05/10/25 Reason for referral: Safety Plan follow up call Referred by: Effie Ingram Manual Lathe Operator made successful phone contact with patient who confirmed she is doing good and denied any safety issues/concerns/needs. Patient continued to contract for safety. Manual Lathe Operator reviewed ways to seek emergency assistance if needed. Destini Bassett, NETWORK ENGINEERING ADVISOR, [employer] POWER PLANT ENGINEER
== END 2025-05-09 18:14 | disposition home or self-care (01) ==
LOC: EN 12:54 → AC 12:58
PROVIDERS: PCP Family Medicine; Referring Provider Family Medicine; Visit Provider Internal Medicine Gastroenterology
DX: K29.50 Unspecified chronic gastritis without bleeding (principal); K21.9 Gastro-esophageal reflux disease without esophagitis; K76.0 Fatty (change of) liver, not elsewhere classified; Z87.891 Personal history of nicotine dependence; Z79.899 Other long term (current) drug therapy
CPT/HCPCS: 44361; 88305; 88342; J2405